=== PATIENT | male | born 1975 | race African-American/Black ===

== ENCOUNTER 2023-11-02 13:55 | Emergency (ER) | payer OTHER, SELFPAY ==
[2023-11-02 14:01] VITALS: BP 182/109; PULSE 115; RESP 24; TEMP 36.2; O2SAT 97; BMI 33.5
--- NOTE | 2023-11-02 14:11 | CRLHL7_ITS ---
For Patients: As a result of the Century Cures Act, medical imaging exams and procedure reports are released immediately into your electronic medical record. You may view this report before your referring provider. If you have questions, please contact your health care provider. INDICATION: Left flank pain. Left shoulder pain. TECHNIQUE: Multiplanar CT examination of the chest, abdomen and pelvis was performed without the use of intravenous contrast. COMPARISON: None. FINDINGS: Limited evaluation without the use of intravenous contrast. CHEST: Lower neck: Visualized thyroid appears unremarkable. Cardiovascular: Normal heart size. No significant atherosclerotic calcifications of the thoracic aorta. Normal caliber of the thoracic aorta and pulmonary artery. No CT evidence of acute aortic injury. No significant coronary arterial calcifications. Mediastinum and lymph nodes: No pathologic lymphadenopathy by size criteria. Lungs: There is Latoya lymphatic nodularity, most pronounced involving the bilateral lower lobes, for example abutting the right major fissure as well as several irregularly nodular interlobular septal thickening (2:99). No focal consolidation. No suspicious pulmonary masses. Pleura: No pleural effusions or pneumothorax. Chest wall: No axillary lymphadenopathy. Unremarkable. Bones: No acute osseous abnormalities. No acute displaced rib fractures. Mild degeneration of the glenohumeral joints bilaterally. ABDOMEN AND PELVIS: Liver: Unremarkable. Gallbladder: Unremarkable. Biliary: No biliary ductal dilatation. Pancreas: Within normal limits. Spleen: Unremarkable. Adrenals: Unremarkable. Kidneys/ureters/bladder: Kidneys are normal in size. No obstructive urinary calculus or hydronephrosis. There are numerous nonobstructive calculi within the renal collecting system bilaterally. No obstructive uropathy. The bladder is within normal limits. Limited evaluation for masses within the kidneys, ureters or bladder without the use of intravenous contrast. 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 No bowel wall thickening or bowel obstruction. Normal appendix. No significant colonic diverticulosis. Mild colonic stool burden. Small hiatal hernia. Pelvic structures: Unremarkable prostate. Vascular: Minimal atherosclerotic calcifications of the abdominal aorta. No aneurysm. Peritoneum: No free fluid or pneumoperitoneum. No drainable fluid collections. Lymph nodes: No pathologic lymphadenopathy by size criteria. Abdominal wall/soft tissues: Unremarkable. Bones: No acute osseous abnormalities. Degenerative changes of the hip joints bilaterally. IMPRESSION: 1. No acute intrathoracic pathology. Mild degeneration of the glenohumeral joints bilaterally. 2. No acute abdominopelvic pathology. No hydronephrosis or obstructing urinary calculus. 3. Irregularly nodular interlobular septal thickening and perilymphatic nodularity predominantly involving the bilateral lower lobes. These findings can be seen the setting of underlying pulmonary sarcoidosis. No significant pulmonary fibrosis or intrathoracic lymphadenopathy. 4. Status post gastric bypass surgery. No bowel obstruction. Please note that all CT scans at this facility use dose modulation, iterative reconstruction, and/or weight-based dosing when appropriate to reduce radiation dose to as low as reasonably achievable. Dictated by Paco Medrano MD @ 11/02/2023 3:57:21 PM (Electronically Signed)
[2023-11-02 14:32] LABS: Lactate Sepsis w/Reflex* 4.7 mmol/L (0.5-1.9)
--- OUTSIDE RECORDS SUMMARY | 2023-11-02 14:37 | XMS_ITS | Encounter Summary ---
Author Organization [place] Address [address] [facility] [place] [address] Care Team Providers Care Psychiatric Arnp Name Role Phone Олег Kaiser MD Unavailable [phone] Loretta Elizalde PA-C Unavailable [phone] Loretta Elizalde PA-C Primary Care Provider [phone] Dong Craft MD Unavailable [phone] Grazyna Damian CNP Unavailable [phone] Reason for Visit * Reason Onset Date Comments Refill Request 10/30/2023 FLUoxetine (PROZ AC) 40 MG capsule and albuterol (PROAIR HFA/PROVENTIL HFA/VENTOLIN HFA) 108 (90 Base) MCG/ACT inhaler Encounter Details Date Type Department Care Team (Late st Contact Info) Description 10/30/2023 Refill [facility] [address] [place] [address] Loretta Elizalde PA-C [address] [place] [address] Refill Request (FLUoxetine (PROZAC) 40 MG capsule and albuterol (PROAIR HFA/PROVENTIL HFA/VENTOLIN HFA) 108 (90 Base) MCG/ACT inhaler) Social History Tobacco Use Types Packs/Day Years Used Date Smoking Tobacco: Never Smokeless Tobacco: Never Alcohol Use Standard Drinks/Week Comments Yes 3 (1 standard drink = 0.6 oz pur e alcohol) rare PHQ-2 Answer Date Recorded PHQ-2 Score 2 09/11/2022 Adolescent Education Answer Date Record ed Getting School Help Needed Not on file 02/16 Sex and Gender Information Value Date Recorded Sex Assigned at Not on file Gender Identity Not on file Sexual Orientation Not on file documented as of this encounter Miscellaneous Notes * Telephone Encounter - Faith Cano - 10/31/2023 12:35 PM CDT Scheduled. Faith Cano Lead Hoop Maker [facility] * Telephone Encounter - Loretta Elizalde PA-C - 10/31/2023 11:39 AM CDT I would like to have a visit with him to discuss and I have virtual openings next week. Please helpschedule visit. He should still keep his physical as scheduled in November. Thanks! Loretta Elizalde PA-C * Telephone Encounter - Miguelina Hernandez RN - 10/31/2023 8:59 AM CDT Patient calling back. Has been out for about 6 months. States needs to get back on it before his visit in November. Having depression and anxiety but more depression. Patient confirms he is safe and denies thoughts of harming himself or others. Discussed may need a taper. Discussed may be advised E-Visit. Please advise. Miguelina Hernandez RN * Telephone Encounter - Leonela James RN - 10/31/2023 8:48 AM CDT Attempted to call patient x2, no answer and VM not set up. Leonela James RN on 10/31/2023 at 8:48 AM * Telephone Encounter - Loretta Elizalde PA-C - 10/31/2023 8:32 AM CDT Fluoxetine last prescribed 04/19/23 for 30 day supply so he would have run out of medication a while ago. Has he been taking the fluoxetine? He is overdue for visit but does have visit scheduled with me in November. Loretta Elizalde PA-C documented in this encounter Plan of Treatment Upcoming Encounters Date Type Department Care Team (Late st Contact Info) Description 11/06/2023 4:00 PM CDT Virtual Visit [facility] [address] [place] [phone] Loretta Elizalde PA-C [address] [place], [place] [phone] 12/11/2023 7:30 AM CDT Office Visit [facility] [address] [place] [phone] Loretta Elizalde PA-C [address] [place], [place] 8[address] documented as of this encounter Goals Goal Patient Goal Type Associated Problems Recent Progress Patient-Stated? Author Other General No Dina Ron LPN Note: Goal Statement: I will use my clinic and care team resources as directed. Date Goal set: 06/26/2023 Barriers: none Strengths: coping and health awareness Date to Achieve By: ongoing Patient expressed understanding of goal: Yes Action steps to achieve this goal: I will contact triage with new, worsening or uncontrolled symptoms. I will contact scheduling to arrange or make changes in my appointments. documented as of this encounter Visit Diagnoses Diagnosis Recurrent major depressive disorder, in partial remission (H24) Moderate persistent asthma without complication Unspecified asthma documented in this encounter Additional Health Concerns Assessment Noted Time PHQ-9 Depression Total Score: 2 09/12/19 7:51 AM CDT documented as of this encounter Care Teams Psychiatric Arnp Relationship Specialty Start Date End Date Loretta Elizalde PA-C [address] [place] [address] PCP - General Family Medicine 09/25/22 Олег Kaiser MD [address] [place] [address] [id number] Urology 04/05/21 Loretta Elizalde PA-C [address] [place] [address] Assigned PCP 09/22/22 Dong Craft MD [address] [place] [address] Hematology 10/09/22 Grazyna Damian, NORBERT [address] [place] [address] Assigned Cancer Care Provider 05/25/23 documented as of this encounter
--- OUTSIDE RECORDS SUMMARY | 2023-11-02 14:37 | XMS_ITS | Encounter Summary ---
Author Organization [place] Address [address] [place] [address] Care Team Providers Care Flap Lining Binder Name Role Phone Олег Kaiser MD Unavailable [phone] Loretta Elizalde PA-C Unavailable [phone] Loretta Elizalde PA-C Primary Care Provider [phone] Dong Craft MD Unavailable [phone] Dong Craft MD Unavailable [phone] Grazyna Damian CNP Unavailable [phone] Encounter Details Date Type Department Care Team (Late Contact Info) Description 04/19/2023 MyC Medical Advice [facility] [address] [place] [address] Faith Cano Social History Tobacco Use Types Packs/Day Years [...] on file documented as of this encounter Plan of Treatment Upcoming Encounters Date Type Department Care Team ([facility] Contact Info) Description 11/06/2023 4:00 PM CDT [facility] [address] [place] [phone] Loretta Elizalde PA-C [address] [place] [address] 12/11/2023 7:30 AM CDT Office Visit [facility] [address] [place] [phone] Loretta Elizalde PA-C [address] [place] [address] documented as of this encounter Visit Diagnoses Not on filedocumented in this encounter Additional Health Concerns Assessment Noted Time PHQ-9 Depression Total Score: 2 09/12/19 7:51 AM CDT documented as of this encounter Care Teams Flap Lining Binder Relationship Specialty Start Date End Date Loretta Elizalde PA-C [address] [place] [address] PCP - General Family Medicine 09/25/22 Олег Kaiser MD [address] [place] [address] 396645 Urology 04/05/21 Loretta Elizadle PA-C [address] [place] [address] Assigned PCP 09/22/22 Dong Craft MD [address] [place] [address] 159135 Hematology 10/09/22 Dong Craft MD [address] [place] [address] [phone] Assigned Cancer Care Provider 11/24/22 05/24/23 Grazyna Damian CNP [address] [address] Assigned Cancer Care Provider 05/25/23 documented as of this encounter
--- OUTSIDE RECORDS SUMMARY | 2023-11-02 14:37 | XMS_ITS | Encounter Summary ---
Author Organization [place] Address [address] [facility] [place] [address] Care Team Providers Care Train Operator Name Role Phone Олег Kaiser MD Unavailable [phone] Loretta Elizalde PA-C Unavailable [phone] Loretta Elizalde PA-C Primary Care Provider [phone] Dong Craft MD Unavailable [phone] Dong Craft MD Unavailable [phone] Grazyna Damian CNP Unavailable [phone] Encounter Details Date Type Department Care Team (Late st Contact Info) Description 05/14/2023 MyC Medical Advice [facility] [address] [place] [address] [facility] Social History Tobacco Use Types Packs/Day Years [...] Encounters Date Type Department Care Team (Late Contact Info) Description 11/06/2023 4:00 PM CDT Virtual Visit [address] [place] [phone] Loretta Elizalde PA-C [address] [place], [place] [phone] 12/11/2023 7:30 AM CDT [facility] [address] [place] [phone] Loretta Elizalde PA-C [address] [place], [place] [phone] documented as of this encounter Visit Diagnoses Not on filedocumented in this encounter Additional Health Concerns Assessment Noted Time PHQ-9 Depression Total Score: 2 09/12/19 7:51 AM CDT documented as of this encounter Care Teams Train Operator Relationship Specialty Start Date End Date Loretta Elizaled PA-C [address] [place] [address] PCP - General Family Medicine 09/25/22 Олег Kaiser MD [address] [place] [address] [phone] Urology 04/05/21 Loretta Elizalde PA-C [address] [place] [address] Assigned PCP 09/22/22 Dong Craft MD [address] [place] [address] [phone] Hematology 10/09/22 Dong Craft MD [address] [place] [address] [phone] Assigned Cancer Care Provider 11/24/22 05/24/23 Grazyna Damian CNP [address] [address] Assigned Cancer Care Provider 05/25/23 documented as of this encounter
--- OUTSIDE RECORDS SUMMARY | 2023-11-02 14:37 | XMS_ITS | Encounter Summary ---
Author Organization [place] Address [facility] [place] [address] Care Team Providers Care Atv Mechanic Name Role Phone Олег Kaiser MD Unavailable [phone] Loretta Elizalde PA-C Unavailable [phone] Loretta Elizalde PA-C Primary Care Provider [phone] Dong Craft MD Unavailable [phone] Grazyna Damian CNP Unavailable [phone] Encounter Details Date Type Department Care Team (Late st Contact Info) Description 08/19/2023 MyC Medical Advice [facility] [address] [address] Eleanor Schwartz Social History Tobacco Use Types Packs/Day Years [...] Description 11/06/2023 4:00 PM CDT Virtual Visit [address] [address] Loretta Elizalde PA-C [address] [place], [place] [phone] 12/11/2023 7:30 AM CDT Office Visit [facility] [address] [place] [phone] Loretta Elizalde PA-C [address] [place] [address] documented as of this encounter Goals Goal [...] Time PHQ-9 Depression Total Score: 2 09/12/19 23 7:51 AM CDT documented as of this encounter Care Teams Atv Mechanic Relationship Specialty Start Date End Date Loretta Elizalde PA-C [address] [place] [address] PCP - General Family Medicine 09/25/22 Олег Kaiser MD [address] [place] [address] Urology 04/05/21 Loretta Elizalde PA-C [address] [place] [address] Assigned PCP 09/22/22 Dong Craft MD [address] [place] [address] 281125 Hematology 10/09/22 Grazyna Damian CNP 420 [facility] [address] [place] [address] Assigned Cancer Care Provider 05/25/23 documented as of this encounter
--- OUTSIDE RECORDS SUMMARY | 2023-11-02 14:37 | XMS_ITS | Encounter Summary ---
Author Organization [place] Address [address] [facility] [place] [address] Care Team Providers Care Supervisory Lifeguard Name Role Phone Олег Kaiser MD Unavailable [phone] Loretta Elizalde PA-C Unavailable [phone] Loretta Elizalde PA-C Primary Care Provider [phone] Dong Craft MD Unavailable [phone] Dong Craft MD Unavailable [phone] Grazyna Damian CNP Unavailable [phone] Encounter Details Date Type Department Care Team (Late st Contact Info) Description 12/06/2022 [facility] [address] [place] [address] [facility] Social History Tobacco Use Types Packs/Day Years Used Date Smoking Tobacco: Never Smokeless Tobacco: Never Alcohol Use Standard Drinks/Week Comments Yes 3 (1 standard drink = 0.6 oz pur e alcohol) rare PHQ-2 Answer Date Recorded PHQ-2 Score 2 09/11/2022 Sex and Gender Information Value Date Recorded Sex Assigned at Not on file Gender Identity Not on file Sexual Orientation Not on file COVID-19 Exposure Response Date Recorded In the last 10 days, have yo u been in contact with someone who was confirmed or suspected to have Coronavirus/COVID-19? No / Unsure 11/12/2022 4:25 PM CDT documented as of this encounter Plan of Treatment Upcoming Encounters Date Type Department Care Team (Late st Contact Info) Description 11/06/2023 4:00 PM CDT Virtual Visit [facility] [address] [place] [phone] Loretta Elizalde PA-C [address] [place] [address] 12/11/2023 7:30 AM CDT Office Visit [facility] [address] [place] [phone] Loretta Elizalde PA-C [address] [place], [place] 9[address]65[address] documented as of this encounter Visit Diagnoses Not on filedocumented in this encounter Additional Health Concerns Assessment Noted Time PHQ-9 Depression Total Score: 2 09/12/19 7:51 AM CDT documented as of this encounter Care Teams Supervisory Lifeguard Relationship Specialty Start Date End Date Loretta Elizalde PA-C [address] [place] [address] PCP - General Family Medicine 09/25/22 Олег Kaiser MD [address] [place] [address] [phone] Urology 04/05/21 Loretta Elizalde PA-C [address] [place] [address] Assigned PCP 09/22/22 Dong Craft MD [address] [place] [address] Hematology 10/09/22 Dong Craft MD [address] [place] [address] Assigned Cancer Care Provider 11/24/22 05/24/23 Grazyna Damian CNP [address] [place] [address] 525794 Assigned Cancer Care Provider 05/25/23 documented as of this encounter
--- OUTSIDE RECORDS SUMMARY | 2023-11-02 14:37 | XMS_ITS | Encounter Summary ---
Author Organization [place] Address [address] [facility] [place] [address] Care Team Providers Care Power Tool Repair Technician Name Role Phone Олег Kaiser MD Unavailable [phone] Loretta Elizalde PA-C Unavailable [phone] Loretta Elizalde PA-C Primary Care Provider [phone] Dong Craft MD Unavailable [phone] Dong Craft MD Unavailable [phone] Grazyna Damian CNP Unavailable [phone] Encounter Details Date Type Department Care Team (Late st Contact Info) Description 02/01/2023 [facility] [address] [place] [address] Faith Cano Social History Tobacco [...] Description 11/06/2023 4:00 PM CDT [facility] [address] [place] [address] Loretta Elizalde PA-C [address] [place] [address] 12/11/2023 7:30 AM CDT Office Visit [facility] [address] [place] [address] Loretta Elizalde PA-C [address] [place] [address] documented as of this encounter Visit Diagnoses Not on filedocumented in this encounter Additional Health Concerns Assessment Noted Time PHQ-9 Depression Total Score: 2 09/12/19 7:51 AM CDT documented as of this encounter Care Teams Power Tool Repair Technician Relationship Specialty Start Date End Date Loretta Elizalde PA-C [address] [place] [address] PCP - General Family Medicine 09/25/22 JobОлег MD [address] [place] [address] [phone] Urology 04/05/21 Loretta Elizalde PA-C [address] [place] [address] Assigned PCP 09/22/22 Dong Craft MD [address] [place] [address] Hematology 10/09/22 Dong Craft MD [address] [place] [address] Assigned Cancer Care Provider 11/24/22 05/24/23 Grazyna Damian, RABBIT DRESSER [address] [address] Assigned Cancer Care Provider 05/25/23 documented as of this encounter
--- OUTSIDE RECORDS SUMMARY | 2023-11-02 14:37 | XMS_ITS | Encounter Summary ---
Author Organization [place] Address [address] [facility] [place] [address] Care Team Providers Care Cigarette Making Machine Catcher Name Role Phone Олег Kaiser MD Unavailable [phone] Loretta Elizalde PA-C Unavailable [phone] Loretta Elizalde PA-C Primary Care Provider [phone] Dong Craft MD Unavailable [phone] Dong Craft MD Unavailable [phone] Grazyna Damian CNP Unavailable [phone] Encounter Details Date Type Department Care Team (Late st Contact Info) Description 12/10/2022 [facility] Medical Advice [facility] [address] [place] [address] Vibha Ernst Social History Tobacco Use Types Packs/Day Years [...] suspected to have Coronavirus/COVID-19? No / Unsure 12/12/2022 2:30 PM CDT documented as of this encounter Plan of Treatment Upcoming Encounters Date Type Department Care Team (Late st Contact Info) Description 11/06/2023 4:00 PM CDT [facility] [address] [place] [phone] Loretta Elizalde PA-C [address] [place] [address] 12/11/2023 7:30 AM CDT [facility] [address] [place] [phone] Loretta Elizalde PA-C [address] [place], [place] 8[address]68 documented as of this encounter Visit Diagnoses Not on filedocumented in this encounter Additional Health Concerns Assessment Noted Time PHQ-9 Depression Total Score: 2 09/12/19 7:51 AM CDT documented as of this encounter Care Teams Cigarette Making Machine Catcher Relationship Specialty Start Date End Date Loretta Elizalde PA-C [address] [place] [address] PCP - General Family Medicine 09/25/22 Олег Kaiser MD [address] [place] [address] [phone] Urology 04/05/21 Loretta Elizalde PA-C [address] [place] [address] Assigned PCP 09/22/22 Dong Craft MD [address] [place] [address] Hematology 10/09/22 Dong Craft MD [address] [place] [address] Assigned Cancer Care Provider 11/24/22 05/24/23 Grazyna Damian CNP [address] [place] [address] Assigned Cancer Care Provider 05/25/23 documented as of this encounter
--- OUTSIDE RECORDS SUMMARY | 2023-11-02 14:37 | XMS_ITS | Referral Summary ---
Author Organization [facility] Address [address] [facility] [place] [address] Care Team Providers Care Broiler Supervisor Name Role Phone Олег Kaiser MD Unavailable [phone] Loretta Elizalde PA-C Unavailable [phone] Loretta Elizalde PA-C Primary Care Provider [phone] Dong Craft MD Unavailable [phone] Grazyna Damian CNP Unavailable [phone] Encounters Date Type Department Care Team Description 10/30/[address] [address] Loretta Elizalde PA-C Refill Request (FLUoxetine (PROZAC) 40 MG capsule and albuterol (PROAIR HFA/PROVENTIL HFA/VENTOLIN HFA) 108 (90 Base) MCG/ACT inhaler) 08/19/2023 MyC Medical Advice [facility] [address] [address] Eleanor Schwartz from Last 3 Months Allergies Active Allergy Reactions Criticality Noted Date Comments Nsaids 06/09/2018 Gastric Bypass Medications Medication Sig Dispensed Refills Start Date End Date Status amLODIPine (NORVASC) 5 MG tabletIndications: Hypertension goal BP (blood pressure) < 140/90 Take 1 tablet (5 mg) by mouth daily 30 tablet 1 09/25/2022 Active fluticasone-vilant pepper (BREO ELLIPTA) 200-25 MCG/ACT inhaler Inhale 1 puff into the lungs daily as needed Active nortriptyline (PAMELOR) 10 MG capsule Take 10 mg by mouth At Bedtime Active pantoprazole (PROTONIX) 20 MG EC tablet Take 20 mg by mouth daily Active olmesartan (BENICAR) 20 MG tabletIndications: Hypertension goal BP (blood pressure) < 140/90 TAKE 1 TABLET BY MOUTH EVERY DAY 30 tablet 02/01/2023 Active metFORMIN (GLUCOPHAGE XR) 500 MG 24 hr tabletIndications: Type 2 diabetes mellitus with diabetic nephropathy, 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 NEEDS VISIT FOR FURTHER REFILLS 120 tablet 04/19/2023 Active rosuvastatin (CRESTOR) 20 MG tabletIndications: Hyperlipidemia LDL goal <70 TAKE 1 TABLET BY MOUTH EVERY DAY 30 tablet 04/19/2023 Active FLUoxetine (PROZAC) 40 MG capsuleIndications :Recurrent major depressive disorder, in partial remission (H24) TAKE 1 CAPSULE BY MOUTH EVERY DAY 30 capsule 04/19/2023 Active albuterol (PROAIR HFA/PROVENTIL HFA/VENTOLIN HFA) 108 (90 Base) MCG/ACT inhalerIndications :Moderate persistent asthma without complication Inhale 1-2 puffs into the lungs every 4 hours as needed for shortness of breath or wheezing 18 g 10/31/2023 Active albuterol (PROAIR HFA/PROVENTIL HFA/VENTOLIN HFA) 108 (90 Base) MCG/ACT inhalerIndications :Moderate persistent asthma without complication Inhale 1-2 puffs into the lungs every 4 hours as needed for shortness of breath or wheezing 18 g 11 09/11/2022 4 Discontinue d(Reorder (No AVS)) Active Problems Patient Care Coordination No te Formatting of this note migh t be different from the original. EMERGENCY CARE PLAN ACUTE CARE PLAN FOR THE FOLLOWING CONDITIONS: Chronic abdominal pain BRIEF HISTORY OF CONDITIONS: He has history of patricia-en-y gastric bypass surgery in 2006. Has been seen in emergency departments frequently in [phone] for epigastric abdominal pain. Has chronic pain of 7/10 noted on December 2018 [facility] admission. He has had significant workup for this pain throughout this time. Patient has had multiple gallbladder US and CT abdomen/pelvis during this time that have been unremarkable. He had EGD in September 2018 through [facility] that was normal. He saw general surgery PLUMBER GASFITTER through [facility] on 01/06/19 that thought some of pain may be incisional pain as he had pain over the area when using abdominal muscles. Hospital discharge note from December 2018 also mentions constipation as possibly contributing to pain. EXPECTED HOME RESCUE PLAN: Patient should be taking his home medications including PPI, stool regimen and OTC pain medications. He may have narcotics at home as he has intermittently been prescribed narcotics. AUTHORIZED TREATMENTS IN THE EMERGENCY DEPARTMENT (WITH SPECIFIC MEDICATIONS AND DOSES): Labs as needed Avoid imaging especially CT abdomen/pelvis unless acute change in labs or concerning clinical exam as he has had multiple CT abdomen/pelvis over last 2 years that have been negative Antiemetics PRN, GI cocktail PRN, EPPA Chronic Pain Policy applies. No parenteral opiates or prescriptions for opiate pain medications. INDICATIONS FOR ADMISSION OR CONSULTATION: Acute change in labs from baseline or new imaging findings warranting admission Uncontrolled vomiting FOLLOW UP PLAN AFTER AN ED VISIT: Follow up with primary care provider CONTACT INFORMATION FOR PMD OR CELL PHONE REPAIR TECHNICIAN: Johnie Farmer MD [phone] PAIN CONTRACT CLINIC/PRESCRIBER: N/A RESTRICTED STATUS IF RESTRICTED TO A HOSPITAL OR PROVIDER: NA Problem Noted Date Diagnosed Date Upper GI bleed 10/01/2022 History of Patricia-en-Y gastric bypass 10/01/2022 B12 deficiency 09/13/2022 Iron deficiency anemia, unsp ecified iron deficiency anemia type 09/13/2022 Family history of early CAD 09/11/2022 Overview: His dad, paternal uncles, and paternal grandfather all had heart attacks or strokes in their 40s-50s. Moderate persistent asthma 11/08/2014 Hypertension goal BP (blood pressure) < 140/90 0 11/08/2014 Type 2 diabetes mellitus wit h diabetic nephropathy, goal <7% 11/08/2014 Hyperlipidemia LDL goal <70 11/08/2014 Recurrent major depressive d isorder, in partial remission (H24) 09/26/2013 09/11/2022 Overview: H/o overdose attempt (2006), hospitalized at [facility]'s 2010 Vitamin D deficiency 05/16/2010 Acute gout of right knee, unspecified cause 05/29 S/P gastric bypass 06/25/2008 09/11/2022 Overview: ~2001, [facility], Dr Zhou? Resolved Problems Problem Noted Date Diagnosed Date Resolved Date Ureteral stone 04/08/2021 09/11/2022 Pneumonia due to infectious organism, unspecified laterality, unspecified part of lung 04/18/2020 09/11/2022 Sepsis, due to unspecified o rganism, unspecified whether acute organ dysfunction present 04/18/2020 09/11/2022 Suspected COVID-19 virus infection 04/18/2020 09/11/2022 Asthma in adult, moderate pe rsistent, with acute exacerbation 06/23/2019 09/11/2022 Syncope 01/29/2018 09/11/2022 Ileus 08/29/2017 09/11/2022 Abdominal pain 08/29/2017 09/11/2022 Weakness 08/28/2016 09/11/2022 Overweight - BMI >35 03/17/2015 023 H/O bariatric surgery 11/08/20142022 Depression with anxiety 11/08/201408/25 Overview: [facility] (has already done a phone consultation) - for counseling Living will, counseling/discussion 10/22/2013 09/11/2022 Overview: Advance Care Planning: ACP Review and Resources Provided: Reviewed chart for advance care plan. Alex Goodwin III has no plan or code status on file. Discussed available resources and provided with information. Confirmed code status reflects current choices pending further ACP discussions. Confirmed/documented designated decision maker(s). See permanent comments section of demographics in clinical tab. Added by Emily Hayes on 10/22/2013 Alcohol dependence in remission 09/26/2013 3 09/11/2022 Overview: Reports being sober since 12/2009, attending [facility] 09/22/2013 09/11/2022 Overview: State Tier Level: NA Status: NA Community Fundraiser: See Letters for [facility] Care Plan Pernicious anemia 09/22/2013 09/11/2022 Insomnia 09/22/2013 09/11/2022 Anal fissure and fistula 04/21/2013 Perirectal abscess 04/20/2013 4 Abscess of anal and rectal regions 04/02/2013 09/22/2013 Rectal pain 04/02/2013 09/22/2013 Rectal mass 04/02/2013 09/22/2013 Rectal abscess 04/02/2013 09/22/2013 Asthma 11/14/2011 11/08/2014 Hyperlipidemia 02/10/2010 11/08/2014 Alcohol dependence 01/03/2010 3 Overview: Went through treatment, sober since 2011. Still going to Essential hypertension 07/19/200911/08 Type II diabetes mellitus 06/25/2008 Bariatric surgery status 06/25/2008 Immunizations Name Administration Dates Next Due COVID-19 12+ () (Pfizer) 03/28/2023 COVID-19 MONOVALENT 12+ (Pfizer) 11/04/2020,09/25 Flu, Unspecified 03/15/2019 L2v1-05 Novel Flu P-free 07/08/2009 HepB 04/11/2012,05/12/2010,02/09/2010 Hepatitis B, Adult 04/11/2012,05/12/2010, 010 Influenza (H1N1) 07/08/2009 Influenza (IIV3) PF 03/11/2014, 2,02/23/2011,2009 Influenza Vaccine 18-64 (Flublok) 03/28/2021 Influenza Vaccine >6 months,quad, PF 06/2022,04/10/2022,02/12/2018,2016,02/09/2016,03/11/2014 Influenza, seasonal, injectable, PF 02/09/2010 Pneumococcal 20 valent Conju gate (Prevnar 20) 03/28/2023,09/11/2022 Pneumococcal 23 valent 07/18/2009 TDAP (Adacel,Boostrix) 07/16/2021,07/18/2009 Social History Tobacco Use Types Packs/Day Years Used Date Smoking Tobacco: Never Smokeless Tobacco: Never Tobacco Cessation:Counseling Given: Not Answered Alcohol Use Standard Drinks/Week Comments Yes 3 (1 standard drink = 0.6 oz pur e alcohol) rare PHQ-2 Answer Date Recorded PHQ-2 Score 2 09/11/2022 Adolescent Education Answer Date Record ed Getting School Help Needed Not on file 02/16 Sex and Gender Information Value Date Recorded Sex Assigned at Not on file Gender Identity Not on file Sexual Orientation Not on file Last Filed Vital Signs Vital Sign Reading Time Taken Comments Blood Pressure 153/95 05/14/2023 12:14 PM INK GRINDER Pulse 89 05/14/2023 12:14 PM INK GRINDER Temperature 36.4 ??C (97.6 ??F) 05/14/2023 12:[address] Respiratory Rate 18 05/14/2023 12:14 PM INK GRINDER Oxygen Saturation 98% 05/14/2023 12:14 PM INK GRINDER Inhaled Oxygen Concentration - - Weight 99.3 kg (219 lb) 05/14/2023 12:14 PM INK GRINDER Height 175.3 cm (5' 9) 10/16/2022 1:50 PM CDT Body Mass Index 32.34 10/16/2022 1:50 PM CDT Plan of Treatment Upcoming Encounters Date Type Department Care Team (Late st Contact Info) Description 11/06/2023 4:00 PM CDT Virtual Visit [facility] [address] [place] [phone] Loretta Elizalde PA-C [address] [place], [place] [phone] 12/11/2023 7:30 AM CDT [facility] [address] [place] [phone] Loretta Elizalde PA-C [address] [place], [place] [phone] Goals Goal Patient Goal Type Associated Problems [...] arrange or make changes in my appointments. Medical Devices Implanted Type Area Nurse Infection Control Device Identifier Shelf Expiration Date Model / Serial / Lot Stent Ureteral Polaris Ultra [id number] - [id number] Implanted:Qty: 1 on 04/08/2021 by Олег Kaiser MD at [facility] Stent Right: Abdomen [employer] 01/06/2024 [id number] / / [id number] Procedures Procedure Name Priority Date/Time Associated Diagnosis Comments BASIC METABOLIC PANEL Routine 10/04/2022 6:02 AM CDT COLONOSCOPY Routine 10/03/2022 12:08 PM CDT ALBUMIN RANDOM URINE QUANTITATIVE Routine 09/25/2022 3:40 PM CDT Type 2 diabetes mellitus with diabetic nephropathy, 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) HIV ANTIGEN ANTIBODY COMBO Routine 09/11/2022 8:48 AM CDT Screening for HIV (human immunodeficiency virus) HEPATITIS C SCREEN REFLEX TO HCV RNA QUANT AND GENOTYPE Routine 09/11/2022 8:48 AM CDT Need for hepatitis C screening test LIPID REFLEX TO DIRECT LDL PANEL Routine 09/11/2022 8:48 AM CDT Type 2 diabetes mellitus with diabetic nephropathy, 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) Hyperlipidemia LDL goal <70 HEMOGLOBIN A1C Routine 09/11/2022 8:48 AM CDT Type 2 diabetes mellitus with diabetic nephropathy, 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) Hyperlipidemia LDL goal <70 OCCULT BLOOD STOOL STAT 06/23/2019 9: 59 AM INK GRINDER ASTHMA ACTION PLAN Routine 10/13/2015 9: 27 AM CDT C FOOT EXAM Routine 09/22/2013 1:08 PM CDT Diabetes mellitus, type 2 (H) from Last 3 Months or Most Recently Relevant to Health Maintenance Results * (ABNORMAL) Basic metabolic panel (10/04/2022 6:02 AM CDT) [facility] Sodium 138 136 - 145 mmol/L 10/04/2022 7:04 AM CDT LABORATORY Potassium 3.5 3.4 - 5.3 mmol/L 10/04/2022 7:04 AM CDT LABORATORY Chloride 106 98 - 107 mmol/L 10/04/2022 7:04 AM CDT LABORATORY Carbon Dioxide (CO2) 24 22 - 29 mmol/L 10/04/2022 7:04 AM CDT LABORATORY Anion Gap 8 7 - 15 mmol/L 10/04/2022 7:04 AM CDT LABORATORY Urea Nitrogen 7.7 6.0 - 20.0 mg/dL 10/04/2022 7:04 AM CDT LABORATORY Creatinine 1.02 0.67 - 1.17 mg/dL 10/04/2022 7:04 AM CDT LABORATORY Calcium 8.4(L) 8.6 - 10.0 mg/dL 10/04/2022 7:04 AM T LABORATORY Glucose 130(H) 70 - 99 mg/dL 10/04/2022 7:04 AM CDT LABORATORY GFR Estimate >90 >60 mL/min/1.7 3m2 10/04/2022 7:04 AM CDT LABORATORY Comment:eGFR calculated usin g 2020 CKD-EPI equation. Blood STRUCTURE OF RIGHT HAND / Unknown Venipuncture / Unknown 10/04/2022 6:02 AM CDT 10/04/2022 6:30 AM CDT Paula Parr MD LAB - BLOOD ORDER RIMMA [facility] Acute Care Lab [address] [facility] Lab (1st floor, no room number) [place] [address], [facility] [phone] * COLONOSCOPY (10/03/2022 12:08 PM CDT) [facility] COLONOSCOPY [facility] Patient Name: Alex ??Salter ?Procedure Date: 10/03/2022 12:08 PM ? Date of : 1975 ?Admit Type: Inpatient Age: 47 ? Gender: Male Attending MD: JD RHOADES MD, ??Total Sedation Time: 24 minutes Instrument Name: 226 - Adult Colonoscope Procedure: ?Colonoscopy Indications: ?Pain, GI bleed Providers: ?JD RHOADES MD (Doctor) Referring MD: ? Medicines: ?Midazolam 3 mg IV, Fentanyl 100 micrograms IV Complications: ?No immediate complications. Procedure: ?Pre-Anesthesia Assessment: ?- Prior to the procedure, a History and Physical ?was performed, and patient medications and ?allergies were reviewed. The patient is competent. ?The risks and benefits of the procedure and the ?sedation options and risks were discussed with the ?patient. All questions were answered and informed ?consent was obtained. Patient identification and ?proposed procedure were verified by the physician ?in the endoscopy suite. Mental Status Examination: ?alert and oriented. Airway Examination: normal ?oropharyngeal airway and neck mobility. Respiratory ?Examination: clear to auscultation. CV Examination: ?normal. Prophylactic Antibiotics: The patient does ?not require prophylactic antibiotics. Prior ?Anticoagulants: The patient has taken no ?anticoagulant or antiplatelet agents. ASA Grade ?Assessment: II - A patient with mild systemic ?disease. After reviewing the risks and benefits, ?the patient was deemed in satisfactory condition to ?undergo the procedure. The anesthesia plan was to ?use moderate sedation / analgesia (conscious ?sedation). Immediately prior to administration of ?medications, the patient was re-assessed for ?adequacy to receive sedatives. The heart rate, ?respiratory rate, oxygen saturations, blood ?pressure, adequacy of pulmonary ventilation, and ?response to care were monitored throughout the ?procedure. The physical status of the patient was ?re-assessed after the procedure. ?After obtaining informed consent, the colonoscope ?was passed under direct vision. Throughout the ?procedure, the patient's blood pressure, pulse, and ?oxygen saturations were monitored continuously. The ?[place] Adult Colonoscope, Model # CF-CV926S, ?[place] # 226, SN # [id number] was introduced through ?the anus and advanced to the cecum, identified by ?appendiceal orifice and ileocecal valve. The ?colonoscopy was performed without difficulty. The ?patient tolerated the procedure fairly well. The ?quality of the bowel preparation was good. ? Findings: ? The entire examined colon appeared normal on direct and retroflexion ? views. ? Impression: ? - The entire examined colon is normal on direct and ?retroflexion views. ?- No specimens collected. Recommendation: ? Repeat in ten years. Wonder about HIDA scan for the ?RUQ pain. Might need a small bowel pill camera ?study. ? ____ JD RHOADES MD 10/03/2022 1:46:50 PM I was physically present for the entire viewing portion of the exam. JD RHOADES MD Number of Addenda: 0 Note Initiated On: 10/03/2022 12:08 PM MRN: ?[id number] Procedure Date: ? 10/03/2022 12:08:54 PM Scope Withdrawal Time: 0 hours 6 minutes 14 seconds Total Procedure Duration: 0 hours 21 minutes 40 seconds Estimated Blood Loss: ? Scope In: 1:16:52 PM Scope Out: 1:38:32 PM RADIOLOGY RESULTS 10/03/2022 12:0 8 PM CDT Jd Rhoades MD PROCEDURES RADIOLOGY RESULTS * (ABNORMAL) Albumin Random Urine Quantitative with Creat Ratio (09/25/2022 3:40 PM CDT) Creatinine Urine mg/dL 212.0 mg/dL 09/25/2022 10:01 PM CDT [facility] Comment:The reference ranges have not been established in urine creatinine. The results should be integrated into the clinical context for interpretation. Albumin Urine mg/L 106.0 mg/L 2022 10:01 PM CDT [facility] Comment:The reference ranges have not been established in urine albumin. The results should be integrated into the clinical context for interpretation. Albumin Urine mg/g Cr 50.00(H) 0.00 - 17.00 mg/g Cr 09/25/2022 10:01 PM CDT [facility] Comment: Microalbuminuria is defined as an albumin:creatinine ratio of 17 to 299 for males and 25 to 299 for females. A ratio of albumin:creatinine of 300 or higher is indicative of overt proteinuria. Due to biologic variability, positive results should be confirmed by a second, first-morning random or 24-hour timed urine specimen. If there is discrepancy, a third specimen is recommended. When 2 out of 3 results are in the microalbuminuria range, this is evidence for incipient nephropathy and warrants increased efforts at glucose control, blood pressure control, and institution of therapy with an fxnqokcxyux-nzqqylyvfj-acbckc (ABNER) inhibitor (if the patient can tolerate it). ?? Urine URINE SPECIMEN / Unknown Non-blood Collection / Unknown 09/25/2022 3:40 PM CDT 09/25/2022 3:41 PM CDT Loretta Elizalde PA-C LAB - URINE ORDERAB LES [facility] [place] [facility] [address] [facility], [address] [address], [facility] [phone] * HIV Antigen Antibody Combo (09/11/2022 8:48 AM CDT) HIV Antigen Antibody Combo Nonreactive Nonreactive 09/11/2022 5:57 PM CDT SPECIALTY CORE/PROT/EN DO Comment:HIV-1 p24 Ag & HIV-1 /HIV-2 Ab Not Detected Blood BLOOD SPECIMEN / Unknown Venipuncture / Unknown 09/11/2022 8:48 AM CDT 09/11/2022 8:48 AM CDT Loretta Elizalde PA-C LAB - BLOOD ORDERAB LES SPECIALTY CORE/PROT/ENDO [facility] Core/Prot/Endo [address] [facility], Room [address] [phone] * Hepatitis C Screen Reflex to HCV RNA Quant and Genotype (09/11/2022 8:48 AM CDT) Hepatitis C Antibody Nonreactive Nonreactive 09/11/2022 5:57 PM CDT [facility] SPECIALTY CORE/PROT/EN DO Blood BLOOD SPECIMEN / Unknown Venipuncture / Unknown 09/11/2022 8:48 AM CDT 09/11/2022 8:48 AM CDT Narrative [facility] SPECIALTY CORE/PROT/ENDO - 09/11/2022 5:57 PM CDT Assay performance characteristics have not been established for newborns, infants, and children. Loretta Elizalde PA-C LAB - BLOOD ORDERAB LES [facility] SPECIAL[facility] CORE/PROT/ENDO [facility] Core/Prot/Endo [address] [facility], [address] [phone] * (ABNORMAL) Lipid panel reflex to direct LDL Fasting (09/11/2022 8:48 AM CDT) Cholesterol 219(H) <200 mg/dL 09/11/2022 2:52 PM CDT [facility] Triglycerides 159(H) <150 mg/dL 09/11/2022 2:52 PM CDT [facility] Direct Measure HDL 52 >=40 mg/dL 09/11/2022 2:52 PM CDT [facility] LDL Cholesterol Calculated 135(H) <=100 mg/dL 09/11/2022 2:52 PM CDT [facility] Non HDL Cholesterol 167(H) <130 mg/dL 09/11/2022 2:52 PM CDT [facility] Blood BLOOD SPECIMEN / Unknown Venipuncture / Unknown 09/11/2022 8:48 AM CDT 09/11/2022 8:48 AM CDT Narrative [facility] - 09/11/2022 2:52 PM CDT Cholesterol Desirable: ??<200 mg/dL Triglycerides Normal: ??Less than 150 mg/dL Borderline High: ??150-199 mg/dL High: ??200-499 mg/dL Very High: ??Greater than or equal to 500 mg/dL Direct Measure HDL Female: ??Greater than or equal to 50 mg/dL Male: ??Greater than or equal to 40 mg/dL LDL Cholesterol Desirable: ??<100mg/dL Above Desirable: ??100-129 mg/dL Borderline High: ??130-159 mg/dL High: ??160-189 mg/dL Very High: ??>= 190 mg/dL Non HDL Cholesterol Desirable: ??130 mg/dL Above Desirable: ??130-159 mg/dL Borderline High: ??160-189 mg/dL High: ??190-219 mg/dL Very High: ??Greater than or equal to 220 mg/dL Loretta Elizalde PA-C LAB - BLOOD ORDERAB LES [facility] LAB[facility]AT[facility] [place] [facility] [address] [facility], [address] [place] [address], [facility] [phone] * (ABNORMAL) HEMOGLOBIN A1C (09/11/2022 8:48 AM CDT) Hemoglobin A1C 8.9(H) 0.0 - 5.6 % 09/11/2022 9:06 AM CDT [facility] LAB[facility]ATORY Comment: Normal <5.7% Prediabetes 5.7-6.4% ?? Diabetes 6.5% or higher Note: Adopted from ADA consensus guidelines. Blood BLOOD SPECIMEN / Unknown Venipuncture / Unknown 09/11/2022 8:48 AM CDT 09/11/2022 8:48 AM CDT Narrative [facility] LAB[facility]ATORY - 09/11/2022 9:06 AM CDT Verified by repeat analysis DA Loretta Elizalde PA-C LAB - BLOOD ORDERAB LES LABORATORY [facility] [address] [facility] (no room number, 1st floor of clinic) [place] [address], [facility] [phone] * Stool: occult blood (06/23/2019 9:59 AM INK GRINDER) Occult Blood Negative NEG^Negati ve 06/23/2019 10:11 AM INK GRINDER [facility] Comment: Called to RUTH PRITCHETT IN ERA @ 1010 ON 06/23/19, NB Stool specimen (specimen) 06/23/2019 9:59 AM INK GRINDER 06/23/2019 10:05 AM INK GRINDER Destinee Graham DO LAB - STOOLS ORDER RIMMA MISYS [facility] [address] [place] [address], [place] [phone] from Last 3 Months or Most Recently Relevant to Health Maintenance Advance Directives For more information, please contact: [phone] * Full Code (Latest Code Status on File) Date Activated Date Inactivated Comments 10/01/2022 6:48 PM 10/04/2022 7:46 PM All basic and advanced life-sustaining interventions are performed as appropriate Question Answer Comments Code status determined by: Discussion with patie nt/ legal decision maker * Full Code Date Activated Date Inactivated Comments 04/08/2021 3:14 AM 04/09/2021 12:38 AM All basic and advanced life-sustaining interventions are performed as appropriate Question Answer Comments Code status determined by: Discussion with patie nt/ legal decision maker * Full Code Date Activated Date Inactivated Comments 04/18/2020 3:58 PM 04/19/2020 3:10 PM All basic and advanced life-sustaining interventions are performed as appropriate Question Answer Comments Code status determined by: Discussion with patie nt/ legal decision maker * Full Code Date Activated Date Inactivated Comments 06/23/2019 3:28 PM 06/24/2019 11:34 AM Question Answer Comments Code status determined by: Discussion with patie nt/legal decision maker * Full Code Date Activated Date Inactivated Comments 01/08/2019 10:12 AM 06/23/2019 8:52 AM Question Answer Comments Code status determined by: Discussion with patie nt/legal decision maker Care Teams Broiler Supervisor Relationship Specialty Start Date End Date Loretta Elizalde PA-C [address] [place] [address] PCP - General Family Medicine 09/25/22 Олег Kaiser MD [address] [place] [address] Urology 04/05/21 Loretta Elizalde PA-C [address] [place] [address] Assigned PCP 09/22/22 Dong Craft MD [address] [place] [id number] Hematology 10/09/22 Grazyna Damian, NORBERT [address] [place] [address] Assigned Cancer Care Provider 05/25/23
--- OUTSIDE RECORDS SUMMARY | 2023-11-02 14:37 | XMS_ITS | Encounter Summary ---
Author Organization [place] Address [address] [facility] [place] [address] Care Team Providers Care Employee Counselor Name Role Phone MarlenyJohnie Primary Care Provider [phone] Олег Kaiser MD Unavailable [phone] Deven Schulte MD Unavailable [phone] Олег Kaiser MD Unavailable [phone] Loretta Elizalde PA-C Unavailable [phone] Олег Kaiser MD Unavailable [phone] Loretta Elizalde PA-C Primary Care Provider [phone] Deven Schulte MD Unavailable [phone] Dong Craft MD Unavailable [phone] Dong Craft MD Unavailable [phone] Grazyna Damian CNP Unavailable [phone] Reason for Visit * Reason Onset Date Comments Appointment 04/11/2021 stent removal Encounter Details Date Type Department Care Team (Late st Contact Info) Description 04/11/2021 Telephone [facility] [address] [place] [address] Олег Kaiser MD [address] [place] [address] Appointment (stent removal ) Social History Tobacco Use Types Packs/Day Years Used Date Smoking Tobacco: Never Smokeless Tobacco: Never Alcohol Use Standard Drinks/Week Comments Yes 0 (1 standard drink = 0.6 oz pur e alcohol) rare PHQ-2 Answer Date Recorded PHQ-2 Score 0 04/06/2021 Sex and Gender Information Value Date Recorded Sex Assigned at Not on file Gender Identity Not on file Sexual Orientation Not on file COVID-19 Exposure Response Date Recorded In the last month, have you been in contact with someone who was confirmed or suspected to have Coronavirus / COVID-19? No / Unsure 04/07/2021 11:09 PM EXPORT AGENT documented as of this encounter Miscellaneous Notes * Telephone Encounter - Araceli Degroot - 04/11/2021 12:32 PM CST [facility] Call Center Phone Message May a detailed message be left on voicemail: yes Reason for Call: Other: . pt is calling to schedule his stent removal, he had a procedure with 04/08/2021, please call Alex to schedule, thank you Action Taken: Message routed to: Other: uro Travel Screening: Not Applicable RT AGENT documented in this encounter Plan of Treatment Upcoming Encounters Date Type Department Care Team (Late st Contact Info) Description 11/06/2023 4:00 PM CDT Virtual Visit [facility] [address] [place] [phone] Loretta Elizalde PA-C [address] [place] [address] 12/11/2023 7:30 AM CDT [facility] [address] [place] [phone] Loretta Elizalde PA-C [address] [place], [place] [phone] documented as of this encounter Visit Diagnoses Not on filedocumented in this encounter Care Teams Employee Counselor Relationship Specialty Start Date End Date Johnie Farmer PCP - General Family Practice 01/30/18 09/24/22 Loretta Elizalde PA-C [address] [place], [place] [phone] PCP - General Family Medicine 09/25/22 Олег Kaiser MD [address] [place] [address] 093465 Urology 04/05/21 Deven Schulte MD [address] [place] [address] 051195 Assigned Surgical Provider 04/23/21 Олег Kaiser MD [address] [place] [address] 70681 Assigned Surgical Provider 04/16/21 Loretta Elizalde PA-C [address] [place] [address] Assigned PCP 09/22/22 Олег Kaiser MD [address] [place] [address] 08668 Assigned Surgical Provider 09/22/2209/28/22 Deven Schulte MD [address] [place] [address] [phone] Assigned Surgical Provider 09/29/22 Dong Craft MD [address] [place] [address] Hematology 10/09/22 Dong Craft MD [address] [place] [address] 21743 Assigned Cancer Care Provider 11/24/22 05/24/23 Grazyna Damian, NORBERT [address] [place] [address]697 Assigned Cancer Care Provider 05/25/23 documented as of this encounter
--- OUTSIDE RECORDS SUMMARY | 2023-11-02 14:37 | XMS_ITS | Encounter Summary ---
Author Organization [place] Address [address] [facility] [place] [address] Care Team Providers Care Market Research Worker Name Role Phone Олег Kaiser MD Unavailable [phone] Loretta Elizalde PA-C Unavailable [phone] Loretta Elizalde PA-C Primary Care Provider [phone] Dong Craft MD Unavailable [phone] Dong Craft MD Unavailable [phone] Grazyna Damian CNP Unavailable [phone] Encounter Details Date Type Department Care Team (Late Contact Info) Description 01/07/2023 [facility] [place] [address] [address] Hallie Maria Social History Tobacco Use Types Packs/Day Years [...] Description 11/06/2023 4:00 PM CDT [facility] [address] [place] [phone] Loretta Elizalde PA-C [address] [place], [place] [phone] 12/11/2023 7:30 AM CDT [facility] [address] [place] [phone] Loretta Elizalde PA-C [address] [place], [place] [phone] documented as of this encounter Visit Diagnoses Not on filedocumented in this encounter Additional Health Concerns Assessment Noted Time PHQ-9 Depression Total Score: 2 09/12/19 7:51 AM CDT documented as of this encounter Care Teams Market Research Worker Relationship Specialty Start Date End Date Loretta Elizalde PA-C [address] [place] [address] PCP - General Family Medicine 09/25/22 Олег Kaiser MD [address] [place] [address] [phone] Urology 04/05/21 Loretta Elizalde PA-C [address] [place] [address] Assigned PCP 09/22/22 Dong Craft MD [address] [place] [address] Hematology 10/09/22 Dong Craft MD [address] [place] [address]508 Assigned Cancer Care Provider 11/24/22 05/24/23 Grazyna Damian CNP [address] [place] [address] 054231 Assigned Cancer Care Provider 05/25/23 documented as of this encounter
--- OUTSIDE RECORDS SUMMARY | 2023-11-02 14:37 | XMS_ITS | Encounter Summary ---
Author Organization [place] Address [address] [place] [address]. [place] [address] Care Team Providers Care Global Supply Chain Director Name Role Phone [facility] Unavailable Jennifer Pond MD Primary Care Provider [facility] Primary Care Pro vider Dany Hirsch Primary Care Provider Johnie Farmer Primary Care Provider JobОлег bergeron MD Unavailable [phone] Deven Schulte MD Unavailable [phone] Олег Kaiser MD Unavailable [phone] Loretta Elizalde PA-C Unavailable [phone] Олег Kaiser MD Unavailable +[phone] Loretta Elizalde PA-C Primary Care Provider Deven Schulte MD Unavailable [phone] Dong Craft MD Unavailable [phone] Dong Craft MD Unavailable [phone] Grazyna Damian CNP Unavailable [phone] Encounter Details Date Type Department Care Team (Late st Contact Info) Description 10/13/2015 MyC Medical Advice [place] [phone] Ruth Leigh LPN Social History Tobacco Use Types Packs/Day Years Used Date Smoking Tobacco: Never Smokeless Tobacco: Never Alcohol Use Standard Drinks/Week Comments No 0 (1 standard drink = 0.6 oz pure alcohol) 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 04/18/2020 04/18/2020 05/09/2020 11:4 0 PM OCCUPATIONAL THERAPY PROFESSOR documented as of this encounter Care Teams Global Supply Chain Director Relationship Specialty Start Date End Date Jennfier Pond MD [address] [facility] [place] [address] PCP - General Internal Medicine 11/08/14 08/26/16 [facility] [address] [place] [address] PCP - General 08/27/16 10/26/16 Dany Hirsch [address] [place] [address] PCP - General Family Practice 10/27/16 01/29/18 Johnie Farmer [address] [place] [address] PCP - General Family Practice 01/30/18 09/24/22 Loretta Elizalde PA-C [address] [place] [address] PCP - General Family Medicine 09/25/[address] [address] 06/14/11 08/26/16 Олег Kaiser MD [address] [place] [address] Urology 04/05/21 Deven Schulte MD [address] [place] [address] 600025 Assigned Surgical Provider 04/23/21 09/21/22 Олег Kaiser MD [address] [place] [address] [phone] Assigned Surgical Provider 04/16/21 04/22/21 Loretta Elizalde PA-C [address] [place] [address] Assigned PCP 09/22/22 Олег Kaiser MD [address] [place] [address] [phone] Assigned Surgical Provider 09/22/22 09/28/22 Deven Schulte MD [address] [place] [address] Assigned Surgical Provider 09/29/22 10/19/22 Dong Craft MD [address] [place] [address] 970005 MD [facility] 10/09/22 Dong Craft MD [address] [place] [address] Assigned Cancer Care Provider 11/24/22 05/24/23 Grazyna Damian CNP [address] [place] [address] [phone] Assigned Cancer Care Provider 05/25/23 documented as of this encounter
--- OUTSIDE RECORDS SUMMARY | 2023-11-02 14:37 | XMS_ITS | Encounter Summary ---
Author Organization [place] Address [address] [facility] [place] [address] Care Team Providers Care Paralegal Name Role Phone Олег Kaiser MD Unavailable [phone] Loretta Elizalde PA-C Unavailable [phone] Loretta Elizalde PA-C Primary Care Provider [phone] Dong Craft MD Unavailable [phone] Dong Craft MD Unavailable [phone] Grazyna Damian CNP Unavailable [phone] Encounter Details Date Type Department Care Team (Late Contact Info) Description 02/01/[address] [facility] [address] [place] [address] Bhavik Coelho MA Social History Tobacco Use Types Packs/Day Years [...] Description 11/06/2023 4:00 PM CDT [facility] [address] [place] [address] Loretta Elizalde PA-C [address] [place] [address] 12/11/2023 7:30 AM CDT Office Visit [facility] [address] [place] [phone] Loretta Elizalde PA-C [address] [place] [address] documented as of this encounter Visit Diagnoses Not on filedocumented in this encounter Additional Health Concerns Assessment Noted Time PHQ-9 Depression Total Score: 2 09/12/19 7:51 AM CDT documented as of this encounter Care Teams Paralegal Relationship Specialty Start Date End Date Loretta Elizalde PA-C [address] [place] [address] PCP - General Family Medicine 09/25/22 JobОлег MD [address] [place] [address] [phone] Urology 04/05/21 Loretta Elizalde PA-C [address] [place] [address] Assigned PCP 09/22/22 Dong Craft MD [address] [place] [address] 095305 Hematology 10/09/22 Dong Craft MD [address] [place] [address] 644945 Assigned Cancer Care Provider 11/24/22 05/24/23 Grazyna Damian, NORBERT [address] [facility] [address] [place] [address] Assigned Cancer Care Provider 05/25/23 documented as of this encounter
--- OUTSIDE RECORDS SUMMARY | 2023-11-02 14:37 | XMS_ITS | Encounter Summary ---
Author Organization [place] Address [address] [place] [address]. [place] [address] Care Team Providers Care City Collector Name Role Phone [facility] Unavailable Jennifer Pond MD Primary Care Provider [facility] Primary Care Pro vider Dany Hirsch Primary Care Provider Johnie Farmer Primary Care Provider JobОлег bergeron MD Unavailable [phone] Deven Schulte MD Unavailable [phone] Олег Kaiser MD Unavailable [phone] Loretta Elizalde PA-C Unavailable [phone] Олег Kaiser MD Unavailable +[phone] Loretta Elizalde PA-C Primary Care Provider Deven Schulte MD Unavailable [phone] Dong Craft MD Unavailable [phone] Dong Craft MD Unavailable [phone] Grazyna Damian CNP Unavailable [phone] Encounter Details Date Type Department Care Team (Late st Contact Info) Description 10/13/2015 MyC Medical Advice [place] [phone] Ruth Leigh LPN Social History Tobacco Use [...] Description 11/06/2023 4:00 PM CDT Virtual Visit [facility] [address] [place] [address] Loretta Elizalde PA-C [address] [place], [place] [phone] 12/11/2023 7:30 AM CDT [facility] [address] [place] [phone] Loretta Elizalde PA-C [address] [place], [place] [phone] documented as of this encounter Visit Diagnoses Not on filedocumented in this encounter Additional Health Concerns Infection Onset Date Last Indicated Resolved Time Rule Out COVID-19 10/09/2019 10/09/2019 10/09/2019 9:36 PM CDT Rule Out COVID-19 11/20/2019 11/20/2019 11/21/2019 5:10 PM CDT Rule Out COVID-19 11/25/2019 11/25/2019 11/26/2019 4:41 PM CDT Rule Out COVID-19 04/18/2020 04/18/2020 04/18/2020 4:22 PM POWDER GUARD COVID-19 04/18/2020 04/18/2020 05/09/2020 11:4 0 PM POWDER GUARD documented as of this encounter Care Teams City Collector Relationship Specialty Start Date End Date Jennifer Pond MD [address] [facility] [place] [address] PCP - General Internal Medicine 11/08/14 08/26/16 [facility] [address] [place] [address] PCP - General 08/27/16 10/26/16 Dany Hirsch [address] [place] [address] PCP - General Family Practice 10/27/16 01/29/18 Johnie Farmer [address] [place] [address] PCP - General Family Practice 01/30/18 09/24/22 Loretta Elizalde PA-C [address] [place] [address] PCP - General Family Medicine 09/25/[address] [address] 06/14/11 08/26/16 Олег Kaiser MD [address] [place] [address] Urology 04/05/21 Deven Schulte MD [address] [place] [address] [phone] Assigned Surgical Provider 04/23/21 09/21/22 Олег Kaiser MD [address] [place] [address] 384215 Assigned Surgical Provider 04/16/21 04/22/21 Loretta Elizalde PA-C [address] [place] [address] Assigned PCP 09/22/22 Олег Kaiser MD [address] [place] [address] [phone] Assigned Surgical Provider 09/22/22 09/28/22 Deven Schulte MD [address] [place] [address] Assigned Surgical Provider 09/29/22 10/19/22 Dong Craft MD [address] [place] [address] 659105 MD [facility] [place] 10/09/22 Dong Craft MD [address] [place] [address] Assigned Cancer Care Provider 11/24/22 05/24/23 Grazyna Damian CNP [address] [place] [address] [phone] Assigned Cancer Care Provider 05/25/23 documented as of this encounter
--- OUTSIDE RECORDS SUMMARY | 2023-11-02 14:37 | XMS_ITS | Clinical Summary ---
Author Organization [facility] Address [address] [facility] [address] Care Team Providers Care Director Of Labor And Delivery Name Role Phone Олег Kaiser MD Unavailable [phone] Loretta Elizalde PA-C Unavailable [phone] Loretta Elizalde PA-C Primary Care Provider [phone] Dong Craft MD Unavailable [phone] Grazyna Damian CNP Unavailable [phone] Allergies Active Allergy Reactions Criticality Noted Date [...] been seen in emergency departments frequently in [phone] for epigastric abdominal pain. Has chronic pain of 7/10 noted on December 2018 [facility] admission. He has had significant workup for this pain throughout this time. Patient has had multiple gallbladder US and CT abdomen/pelvis during this time that have been unremarkable. He had EGD in September 2018 through [facility] that was normal. He saw general surgery POACHER WRINGER OPERATOR through [facility] clinic on 01/06/19 that thought some of pain [...] care provider CONTACT INFORMATION FOR PMD OR MANAGER HEART FAILURE: Johnie Farmer MD [phone] PAIN CONTRACT CLINIC/PRESCRIBER: N/A RESTRICTED STATUS IF [...] Overview: H/o overdose attempt (2006), hospitalized at [facility] 2010 Vitamin D deficiency 05/16/2010 Acute gout of right knee, unspecified cause 05/29 S/P gastric bypass 06/25/2008 09/11/2022 Overview: ~2001, [facility], Dr Zhou? 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 Still going to AA Essential hypertension 07/19/200911/08 Type II diabetes mellitus 06/25/2008 Bariatric surgery status 06/25/2008 Encounters Date Type Department Care Team Description 10/30/[address] [facility] [address] [place] [address] Loretta Elizalde, MARYC Refill Request (FLUoxetine (PROZAC) 40 MG capsule and albuterol (PROAIR HFA/PROVENTIL HFA/VENTOLIN HFA) 108 (90 Base) MCG/ACT inhaler) 08/19/[address] [facility] Marrow Transplant Program [address] [address] Eleanor Schwartz from Last 3 Months Immunizations Name Administration Dates Next Due COVID-19 12+ () (Pfizer) 03/28/2023 COVID-19 MONOVALENT 12+ (Pfizer) 11/04/2020,09/25 Flu, Unspecified 03/15/2019 [id number] Novel Flu P-free 07/08/2009 HepB 04/11/2012,05/12/2010,02/09/2010 Hepatitis B, Adult 04/11/2012,05/12/2010, 010 Influenza (H1N1) 07/08/2009 Influenza (IIV3) PF 03/11/2014, 2,02/23/2011,2009 Influenza Vaccine 18-64 (Flublok) 03/28/2021 Influenza Vaccine >6 months,quad, PF 06/2022,04/10/2022,02/12/2018,2016,02/09/2016,03/11/2014 Influenza, seasonal, injectable, PF 02/09/2010 Pneumococcal 20 valent Conju gate (Prevnar 20) 03/28/2023,09/11/2022 Pneumococcal 23 valent 07/18/2009 TDAP (Adacel,Boostrix) 07/16/2021,07/18/2009 Family History Medical History Relation Comments Cerebrovascular Disease Father Gout Father Hypertension Father Lung Cancer Father Hypertension Mother Cerebrovascular Disease Paternal Grandfather Cerebrovascular Disease Paternal Uncle 1 Myocardial Infarction Paternal Uncle 1 Cerebrovascular Disease Paternal Uncle 2 Depression Sister 1 Hypertension Sister 1 Breast Cancer No family hx of Colon Cancer No family hx of Prostate Cancer No family hx of Relation Status Comments Brother 1 Alive adopted Brother 2 Alive adopted Daughter 1 Alive adopted Daughter 2 Alive adopted Father Alive Mother Alive Paternal Grandfather Paternal Uncle 1 Paternal Uncle 2 Sister 1 Alive Sister 2 Alive adopted Sister 3 Alive adopted Sister 4 Alive adopted Son Alive adopted Social History Tobacco Use Types Packs/Day Years [...] Comments Blood Pressure 153/95 05/14/2023 12:14 PM BUSINESS INSURANCE AGENT Pulse 89 05/14/2023 12:14 PM BUSINESS INSURANCE AGENT Temperature 36.4 ??C (97.6 ??F) 05/14/2023 12:[address] Respiratory Rate 18 05/14/2023 12:14 PM BUSINESS INSURANCE AGENT Oxygen Saturation 98% 05/14/2023 12:14 PM BUSINESS INSURANCE AGENT Inhaled Oxygen Concentration - - Weight 99.3 kg (219 lb) 05/14/2023 12:14 PM BUSINESS INSURANCE AGENT Height 175.3 cm (5' 9) 10/16/2022 1:50 PM CDT Body Mass Index 32.34 10/16/2022 1:50 PM CDT Plan of Treatment Upcoming Encounters Date Type Department Care Team (Late st Contact Info) Description 11/06/2023 4:00 PM CDT Virtual Visit [address] [address] Loretta Elizalde PA-C [address] [place] [address] 12/11/2023 7:30 AM CDT Office Visit [facility] [address] [place] [phone] Loretta Elizalde PA-C [address] [place] [address] Health Maintenance Due Date Last Done Comments CT COLONOGRAPHY 1974 EYE EXAM 1974 FLEX SIG 1974 sDNA (Cologuard) 1974 FIT 06/23/2020 06/23/2019 A1C 03/13/2023 09/11/2022, 03/27, 04/18/2020, Additional history exists ASTHMA CONTROL TEST 03/13/2023 09/11/2022 PHQ-9 03/13/2023 09/11/2022, 10/25, 09/22/2013 ANNUAL REVIEW OF HM ORDERS 09/12/2023 09/11/2022 ASTHMA ACTION PLAN 09/12/2023 09/11/2022, 0 09/11/2022, 09/11/2022, Additional history exists DIABETIC FOOT EXAM 09/12/2023 09/11/2022, 0 09/11/2022, 09/22/2013 LIPID 09/12/2023 09/11/2022, 09/22/2013 YEARLY PREVENTIVE VISIT 09/12/2023 09/11/2022 MICROALBUMIN 09/26/2023 09/25/2022, 10/25, 09/22/2013 BMP 10/05/2023 10/04/2022, 09/24, 10/02/2022, Additional history exists ZOSTER IMMUNIZATION (1 of 2) 02/07/2024 ADVANCE CARE PLANNING 09/12/2027 09/11/2022 , 09/11/2022, 10/22/2013 DTAP/TDAP/TD IMMUNIZATION (3 - Td or Tdap) 07/16/2031 07/16/2021, 07/18/2009 COLONOSCOPY 10/03/2032 10/03/2022, 09/24, 10/03/2022, Additional history exists COLORECTAL CANCER SCREENING 10/03/2032 HEPATITIS B IMMUNIZATION Completed 012, 04/11/2012, 05/12/2010, Additional history exists DEPRESSION ACTION PLAN Completed 10/13/2015, 2014 HEPATITIS C SCREENING Completed 09/11/2022 HIV SCREENING Completed 09/11/2022 COVID-19 Vaccine Completed 03/28/2023, , 07/16/2021, Additional history exists INFLUENZA VACCINE Completed 03/28/2023, , 03/28/2021, Additional history exists Pneumococcal Vaccine: Pediatrics (0 to 5 Years) and At-Risk Patients (6 to 64 Years) Completed 03/28/2023, 09/11/2022, 07/18/2009 HPV IMMUNIZATION Aged Out No longer e ligible based on patient's age to complete this topic IPV IMMUNIZATION Aged Out No longer e ligible based on patient's age to complete this topic MENINGITIS IMMUNIZATION Aged Out No l onger eligible based on patient's age to complete this topic RSV MONOCLONAL ANTIBODY Aged Out No l onger eligible based on patient's age to complete this topic Goals Goal Patient Goal Type Associated Problems [...] my appointments. Medical Devices Implanted Type Area Justice Court Judge Device Identifier Shelf Expiration Date Model / Serial / Lot Stent Ureteral Polaris Ultra [id number] - [id number] Implanted:Qty: 1 on 04/08/2021 by Олег Kaiser MD at [facility] Stent Right: Abdomen [employer] 01/06/2024 [id number] / / [id number] Procedures Procedure Name Priority Date/Time Associated Diagnosis [...] BLOOD STOOL STAT 06/23/2019 9: 59 AM BUSINESS INSURANCE AGENT ASTHMA ACTION PLAN Routine 10/13/2015 9: 27 AM CDT C FOOT EXAM Routine 09/22/2013 1:08 PM CDT Diabetes mellitus, type 2 (H) from Last 3 Months or Most Recently Relevant to Health Maintenance Results * (ABNORMAL) Basic metabolic panel (10/04/2022 6:02 AM CDT) Sodium 138 136 - 145 mmol/L 10/04/2022 7:04 AM CDT [facility] Potassium 3.5 3.4 - 5.3 mmol/L 10/04/2022 7:04 AM CDT [facility] Chloride 106 98 - 107 mmol/L 10/04/2022 7:04 AM CDT [facility] Carbon Dioxide (CO2) 24 22 - 29 mmol/L 10/04/2022 7:04 AM CDT LABORATORY Anion Gap 8 7 - 15 mmol/L 10/04/2022 7:04 AM CDT LABORATORY Urea Nitrogen 7.7 6.0 - 20.0 mg/dL 10/04/2022 7:04 AM CDT LABORATORY Creatinine 1.02 0.67 - 1.17 mg/dL 10/04/2022 7:04 AM CDT LABORATORY Calcium 8.4(L) 8.6 - 10.0 mg/dL 10/04/2022 7:04 AM CDT LABORATORY Glucose 130(H) 70 - 99 mg/dL 10/04/2022 7:04 AM CDT LABORATORY GFR Estimate >90 >60 mL/min/1.7 3m2 10/04/2022 7:04 AM CDT LABORATORY Comment:eGFR calculated us2020 CKD-EPI equation. Blood STRUCTURE OF RIGHT HAND / Unknown Venipuncture / Unknown 10/04/2022 6:02 AM CDT 10/04/2022 6:30 AM CDT Paula Parr MD LAB - BLOOD ORDER R[facility] [address] [facility] (1st floor, no room number) [place] [address], [facility] [phone] * COLONOSCOPY (10/03/2022 12:08 PM CDT) [facility] COLONOSCOPY [facility] Patient Name: Alex ??Salter ?Procedure Date: [...] and ?oxygen saturations were monitored continuously. The ?Olympus Adult Colonoscope, Model # CF-SD108S, ?[place]ora # 226, SN # [id number] was introduced through ?the anus and advanced [...] Note Initiated On: 10/03/2022 12:08 PM MRN: ?[id number] Procedure Date: ? 10/03/2022 12:08:54 PM Scope [...] 17.00 mg/g Cr 09/25/2022 10:01 PM CDT [facility] Comment: Microalbuminuria is defined as an [...] control, and institution of therapy with an juxlyyojvlj-zkouxisjlz-uvfjqo (ABNER) inhibitor (if the patient can tolerate it). ?? Urine URINE SPECIMEN / Unknown Non-blood Collection / Unknown 09/25/2022 3:40 PM CDT 09/25/2022 3:41 PM CDT Loretta Elizalde PA-C LAB - URINE ORDERAB LES [facility] Lab [address] [facility], [address] [address], [facility] [phone] * HIV Antigen Antibody Combo (09/11/2022 8:48 AM CDT) Pathologist [facility] HIV Antigen Antibody Combo Nonreactive Nonreactive 09/11/2022 5:57 PM CDT SPECIALTY CORE/PROT/EN DO Comment:HIV-1 p24 Ag & HIV-1 /HIV-2 Ab Not Detected Blood BLOOD SPECIMEN / Unknown Venipuncture / Unknown 09/11/2022 8:48 AM CDT 09/11/2022 8:48 AM CDT Loretta HERNANDEZC LAB - BLOOD ORDERAB LES UM SPECIALTY CORE/PROT/ENDO UM Specialty Core/Prot/Endo [address] [facility], Room [address] [phone] * Hepatitis C Screen Reflex to HCV [...] - BLOOD ORDERAB LES UM SPECIALTY CORE/PROT/ENDO Specialty Core/Prot/Endo [address] [facility], Room [address] [phone] * (ABNORMAL) Lipid panel reflex to direct [...] PA-C LAB - BLOOD ORDERAB LES LABORATORY [facility] [address] [facility], [address] [phone] [phone] * (ABNORMAL) HEMOGLOBIN A1C (09/11/2022 8:48 AM CDT) Hemoglobin A1C 8.9(H) 0.0 - 5.6 % 09/11/2022 9:06 AM CDT LABORATORY Comment: Normal <5.7% Prediabetes 5.7-6.4% ?? Diabetes 6.5% or higher Note: Adopted from ADA consensus guidelines. Blood BLOOD SPECIMEN / Unknown Venipuncture / Unknown 09/11/2022 8:48 AM CDT 09/11/2022 8:48 AM CDT Narrative LABORATORY - 09/11/2022 9:06 AM CDT Verified by repeat analysis DA Loretta Elizalde PA-C LAB - BLOOD ORDERAB LES RM LABORATORY [facility] [address] [facility] (no room number, 1st floor of clinic) [place] [address], [facility] [phone] * Stool: occult blood (06/23/2019 9:59 AM BUSINESS INSURANCE AGENT) Occult Blood Negative NEG^Negati ve 06/23/2019 10:11 AM BUSINESS INSURANCE AGENT [facility] Comment: Called to RUTH PRITCHETT IN ERA @ 1010 ON 06/23/19, NB Stool specimen (specimen) 06/23/2019 9:59 AM BUSINESS INSURANCE AGENT 06/23/2019 10:05 AM BUSINESS INSURANCE AGENT Destinee Graham DO LAB - STOOLS ORDER RIMMA MISYS [facility] [address] [place] [address], [facility] [phone] from Last 3 Months or Most Recently Relevant to Health Maintenance Advance Directives For more information, please contact: [phone] * Full Code (Latest Code Status on [...] with patie nt/legal decision maker Care Teams Director Of Labor And Delivery Relationship Specialty Start Date End Date Loretta Elizalde PA-C [address] [place] [address] PCP - General Family Medicine 09/25/22 JobОлег MD [address] [place] [address] Urology 04/05/21 Loretta Elizalde PA-C [address] [place] [address] Assigned PCP 09/22/22 Dong Craft MD [address] [place] [address] Hematology 10/09/22 Grazyna Damian, NORBERT [address] [place] [address] [address] [place], [place] 052847 Assigned Cancer Care Provider 05/25/23
--- OUTSIDE RECORDS SUMMARY | 2023-11-02 14:37 | XMS_ITS | Encounter Summary ---
Author Organization [facility] Address [address] [facility] [place] [address] Care Team Providers Care Adjuster Name Role Phone Олег Kaiser MD Unavailable [phone] Loretta Elizalde PA-C Unavailable [phone] Loretta Elizalde PA-C Primary Care Provider [phone] Dong Craft MD Unavailable [phone] Dong Craft MD Unavailable [phone] Grazyna Damian CNP Unavailable [phone] Encounter Details Date Type Department Care Team (Late Contact Info) Description 03/25/[address] [facility] [address] [place] [address] Faith Cano Social History Tobacco [...] Upcoming Encounters Date Type Department Care Team ([facility] Contact Info) Description 11/06/2023 4:00 PM CDT [facility] [address] [place] [phone] Loretta Elizalde PA-C [address] [place] [address] 12/11/2023 7:30 AM CDT Office Visit [facility] [address] [place] [phone] Loretta Elizalde PA-C [address] [place] [address] documented as of this encounter Visit Diagnoses Not on filedocumented in this encounter Additional Health Concerns Assessment Noted Time PHQ-9 Depression Total Score: 2 09/12/19 7:51 AM CDT documented as of this encounter Care Teams Adjuster Relationship Specialty Start Date End Date Loretta Elizalde PA-C [address] [place] [address] PCP - General Family Medicine 09/25/22 Олег Kaiser MD [address] [place] [address] [id number] Urology 04/05/21 Loretta Elizalde PA-C [address] [place] [address] Assigned PCP 09/22/22 Dong Craft MD [address] [place] [address] 235355 Hematology 10/09/22 Dong Craft MD [address] [place] [address] [id number] Assigned Cancer Care Provider 11/24/22 05/24/23 Grazyna Damian CNP [address] [address] Assigned Cancer Care Provider 05/25/23 documented as of this encounter
--- OUTSIDE RECORDS SUMMARY | 2023-11-02 14:37 | XMS_ITS | Encounter Summary ---
Author Organization [facility] Address [address] [facility] [place] [address] Care Team Providers Care Kinder Teacher Name Role Phone MarlenyJohnie Primary Care Provider [phone] Олег Kaiser MD Unavailable [phone] Deven Schulte MD Unavailable [phone] Loretta Elizalde PA-C Unavailable [phone] Олег Kaiser MD Unavailable [phone] Loretta Elizalde PA-C Primary Care Provider [phone] Deven Schulte MD Unavailable [phone] Dong Craft MD Unavailable [phone] Dong Craft MD Unavailable [phone] Grazyna Damian CNP Unavailable [phone] Encounter Details Date Type Department Care Team (Late st Contact Info) Description 07/16/2021 Documentation Only INTERFACED REPORT Unknown, Provider Social History Tobacco Use Types Packs/Day Years Used Date Smoking Tobacco: Never Smokeless Tobacco: Never Alcohol Use Standard Drinks/Week Comments Yes 0 (1 standard drink = 0.6 oz pur e alcohol) rare PHQ-2 Answer Date Recorded PHQ-2 Score 0 04/18/2021 Sex and Gender Information Value Date Recorded Sex Assigned at Not on file Gender Identity Not on file Sexual Orientation Not on file COVID-19 Exposure Response Date Recorded In the last month, have you been in contact with someone who was confirmed or suspected to have Coronavirus / COVID-19? No / Unsure 07/15/2021 6:20 PM IMPLEMENTATION SPECIALIST [employer] documented as of this encounter Plan of Treatment Upcoming Encounters Date Type Department Care Team (Late st Contact Info) Description 11/06/2023 4:00 PM CDT [facility] [address] [place] [phone] Loretta Elizalde PA-C [address] [place], [place] [phone] 12/11/2023 7:30 AM CDT Office Visit [facility] [address] [place] [phone] Loretta Elizalde PA-C [address] [place], [place] [phone] documented as of this encounter Visit Diagnoses Not on filedocumented in this encounter Care Teams Kinder Teacher Relationship Specialty Start Date End Date Johnie Farmer PCP - General Family Practice 01/30/18 09/24/22 Loretta Elizalde PA-C [address] [place], [place] [phone] PCP - General Family Medicine 09/25/22 Олег Kaiser MD [address] [place], [place] 9[address] Urology 04/05/21 Deven Schulte MD [address] [place] [address] [id number] Assigned Surgical Provider 04/23/21 Loretta Elizalde PA-C [address] [place] [address] Assigned PCP 09/22/22 Олег Kaiser MD [address] [place] [address] Assigned Surgical Provider 09/22/2209/28/22 Deven Schulte MD [address] [place] [address] Assigned Surgical Provider 09/29/22 Dong Craft MD [address] [place] [address] [id number] MD [facility] 10/09/22 Dong Craft MD [address] [place] [address] [phone] Assigned Cancer Care Provider 11/24/22 05/24/23 Grazyna Damian CNP [address] [place] [address] [id number] Assigned Cancer Care Provider 05/25/23 documented as of this encounter
--- OUTSIDE RECORDS SUMMARY | 2023-11-02 14:37 | XMS_ITS | Encounter Summary ---
Author Organization [place] Address [address] [place] [address] Care Team Providers Care Sex Offender Treatment Professional Name Role Phone MarlenyJohnie Primary Care Provider [phone] Олег Kaiser MD Unavailable [phone] Deven Schulte MD Unavailable [phone] Loretta Elizalde PA-C Unavailable [phone] Олег Kaiser MD Unavailable [phone] Loretta Elizalde PA-C Primary Care Provider [phone] Deven Schulte MD Unavailable [phone] Dong Craft MD Unavailable [phone] Dong Craft MD Unavailable [phone] Grazyna Damian CNP Unavailable [phone] Reason for Visit * Reason Onset Date Comments Diabetes Education 09/12/2022 Encounter Details Date Type Department Care Team (Late st Contact Info) Description 09/12/2022 Telephone [facility] [address] [place] [address] Loretta Elizalde PA-C [address] [place] [address] Diabetes Education Social History Tobacco Use Types Packs/Day Years [...] suspected to have Coronavirus/COVID-19? No / Unsure 09/11/2022 6:54 AM CDT documented as of this encounter Miscellaneous Notes * Telephone Encounter - Dena Wade - 09/19/2022 1:00 PM CDT Diabetes Education Scheduling Outreach #2: Call to patient to schedule. Left message with phone number to call to schedule. Dena Bird Diabetes and Nutrition Scheduling * Telephone Encounter - Christiane Kathleen - 09/12/2022 3:41 PM CDT Diabetes Education Scheduling Outreach #1: Call to patient to schedule. Left message with phone number to call to schedule. Plan for 2nd outreach attempt within 3 business days. Christiane Bird Diabetes and Nutrition Scheduling documented in this encounter Plan of Treatment Upcoming Encounters Date Type Department Care Team (Late st Contact Info) Description 11/06/2023 4:00 PM CDT Virtual Visit [facility] [address] [place] [phone] Loretta Elizalde PA-C [address] [place], [place] [phone] 12/11/2023 7:30 AM CDT Office Visit [facility] [address] [place] [phone] Loretta Elizalde PA-C [address] [place] [address] documented as of this encounter Visit Diagnoses Not on filedocumented in this encounter Additional Health Concerns Assessment Noted Time PHQ-9 Depression Total Score: 2 09/12/19 7:51 AM CDT documented as of this encounter Care Teams Sex Offender Treatment Professional Relationship Specialty Start Date End Date Johnie Farmer PCP - General Family Practice 01/30/18 09/24/22 Loretta Elizalde PA-C [address] [place] [address] PCP - General Family Medicine 09/25/22 Олег Kaiser MD [address] [place] [address] [id number] Urology 04/05/21 Deven Schulte MD [address] [place] [address] [phone] Assigned Surgical Provider 04/23/21 Loretta Elizalde PA-C [address] [place] [address] Assigned PCP 09/22/22 Олег Kaiser MD [address] [place] [address] 382605 Assigned Surgical Provider 09/22/2209/28/22 Deven Schulte MD [address] [place] [address] 532265 Assigned Surgical Provider 09/29/22 Dong Craft MD [address] [place], [place] [address] MD Gómez 10/09/22 Dong Craft MD [address] [place] [address] [phone] Assigned Cancer Care Provider 11/24/22 05/24/23 Grazyna Damian CNP [address] [place] [address] [id number] Assigned Cancer Care Provider 05/25/23 documented as of this encounter
--- OUTSIDE RECORDS SUMMARY | 2023-11-02 14:38 | XMS_ITS | Clinical Summary ---
Author Organization [facility] Address [address] [place] [address] Care Team Providers Care Engineering Consultant Name Role Phone Johnie Framer Primary Care Provider [phone] Clinic, Not Listed Unavailable Unavailable Allergies No known active allergies Medications Medication Sig Dispensed Refills Start Date End Date Status ondansetron (ZOFRAN) 4 mg oral ODTIndications:Non-i ntractable vomiting with nausea, unspecified vomiting type Dissolve 1-2 tablets (4-8 mg) in mouth every 8 (eight) hours as needed for nausea. 8 tablet 09/30/2018 Active amLODIPine (NORVASC) 10 mg oral tablet Take 1 tablet (10 mg) by mouth once daily. 0 10/04/2018 Active acetaminophen (TYLENOL) 500 mg oral tablet Take 2 tablets (1,000 mg) by mouth three times a day. 10/03/2018 Active lidocaine 4 % Top patch Apply 3 patches to skin once daily. to painful tender area 6 patch 10/03/2018 Active lisinopril (PRINIVIL) 20 mg oral tablet Take 1 tablet (20 mg) by mouth at bedtime. 90 tablet 10/03/2018 Active metFORMIN (GLUCOPHAGE) 500 mg oral tablet Take 2 tablets (1,000 mg) by mouth twice a day with breakfast and dinner. 180 tablet 10/04/2018 Active pantoprazole (PROTONIX) 20 mg oral delayed release tabletIndications:GE RD Take 1 tablet (20 mg) by mouth once daily Indications: GERD. 0 10/04/2018 Active sertraline (ZOLOFT) 100 mg oral tablet Take 1 tablet (100 mg) by mouth once daily. 10/03/2018 Active HYDROcodone-acetamin ophen (NORCO) 5-325 mg oral tablet Take 1 tablet by mouth every six (6) to eight (8) hours as needed (severe abdominal wall pain). 8 tablet 10/03/2018 Active Active Problems Problem Noted Date Diagnosed Date Abdominal wall pain in epigastric region 019 Epigastric pain 10/02/2018 Microcytic anemia 09/05/2017 H/O bariatric surgery 11/08/2014 Hypertension 03/11/2014 Pernicious anemia 09/22/2013 S/P gastric bypass 06/25/2008 Overview: ~2001, [facility], Dr Zhou? Social History Tobacco Use Types Packs/Day Years Used Date Smoking Tobacco: Never Smokeless Tobacco: Never Alcohol Use Standard Drinks/Week Comments Not Currently 0 (1 standard drink = 0.6 oz pur e alcohol) Sex and Gender Information Value Date Recorded Sex Assigned at Not on file Gender Identity Not on file Sexual Orientation Not on file Last Filed Vital Signs Vital Sign Reading Time Taken Comments Blood Pressure 161/102 12/25/2019 5:16 PM CDT Pulse 111 12/25/2019 5:16 PM CDT Temperature 37.1 ??C (98.7 ??F) 12/25/2019 5:16 PM CD T Respiratory Rate 18 12/25/2019 5:16 PM CDT Oxygen Saturation 100% 12/25/2019 5:16 PM CDT Inhaled Oxygen Concentration - - Weight 115.7 kg (255 lb) 10/02/2018 6:35 PM CDT Height 172.7 cm (5' 8) 10/02/2018 6:35 PM CDT Body Mass Index 38.77 10/02/2018 6:35 PM CDT Plan of Treatment Health Maintenance Due Date Last Done Comments Colonoscopy 1974 Eye Exam 1974 Hepatitis C Screening 1974 Anxiety Screening (KHALIF-2) 1975 Depression Assessment (PHQ-2) 1975 Pneumococcal <65 (2 of 2 - PCV) 07/18/2010 0 HgbA1C 04/05/2019 10/03/2018 Adult Tetanus Booster 07/18/2019 07/18/2009 Creatinine 10/03/2019 10/02/2018, 05/0 11/2018, 08/15/2018, Additional history exists COVID-19 Vaccine ( - 2022-2 4 season) 2023 Influenza Vaccine (Season Ended) 2024 02/12/2018, 04/02/2017, 02/09/2016, Additional history exists Procedures Procedure Name Priority Date/Time Associated Diagnosis Comments HBA1C / EAG Routine 10/03/2018 6:46 AM CDT BASIC METAB PROFILE STAT 10/02/2018 1 :35 PM CDT from Last 3 Months or Most Recently Relevant to Health Maintenance Results * (ABNORMAL) Hgb A1c (Glycosolated Hgb) (10/03/2018 6:46 AM CDT) HBA1C (GLYCOSOLATED HGB) 8.2(H) <5.7 % 10/03/2018 12:22 PM CDT [facility] EAG (EST. AVERAGE GLUCOSE) 189(H) <117 mg/dL 10/03/2018 12:22 PM CDT [facility] Blood 10/03/2018 6:46 AM CDT 10/03/2018 7:16 AM CDT Peggy Caba MD CHEMISTRY ORDERABLE [facility] [address] [place] [address] * (ABNORMAL) Basic Metabolic Profile (10/02/2018 1:35 PM CDT) Pathologist [facility] Sodium 141 136 - 145 mmol/L 10/02/2018 2:09 PM CDT [facility] Potassium 3.8 3.5 - 5.1 mmol/L 10/02/2018 2:09 PM T [facility] Chloride 110 98 - 112 mmol/L 10/02/2018 2:09 PM T [facility] Carbon Dioxide 24 21 - 32 mmol/L 10/02/2018 2:09 PM T [facility] BUN (Urea Nitro) 8 7 - 24 mg/dL 10/02/2018 2:09 PM CDT [facility] Creatinine 0.96 0.70 - 1.30 mg/dL 10/02/2018 2:09 PM CDT [facility] Est GFR (CKD-EPI) >60 >60 mL/min 10/02/2018 2:09 PM CDT [facility] EST GFR IF AM >60 >60 mL/min 10/02/2018 2:09 PM CDT [facility] Glucose 113(H) 74 - 106 mg/dL 10/02/2018 2:09 PM CDT [facility] Calcium, Serum 7.8(L) 8.5 - 10.1 mg/dL 10/02/2018 2:09 PM CDT [facility] Anion Gap 7.0 0.0 - 15.0 mmol/L 10/02/2018 2:09 PM CDT [facility] Blood 10/02/2018 1:35 PM CDT 10/02/2018 1:45 PM CDT Linn Jesus PA-C CHEMISTRY ORDERABLE [facility] [address] [place] [address] from Last 3 Months or Most Recently Relevant to Health Maintenance Advance Directives For more information, please contact: [phone] * Full Code (Latest Code Status on File) Date Activated Date Inactivated Comments 10/02/2018 6:16 PM 10/03/2018 10:01 PM Question Answer Comments How was code status determined? Patient Care Teams Engineering Consultant Relationship Specialty Start Date End Date Johnie Farmer [address] [place] [address] PCP - General Family Medicine 09/30/18 Clinic, Not Listed PCP - Primary Care Clinic 12/25/19
--- OUTSIDE RECORDS SUMMARY | 2023-11-02 14:38 | XMS_ITS | Encounter Summary ---
Author Organization [facility] Address [address] [address] Care Team Providers Care Gravel Hauler Name Role Phone Johnie Farmer MD Primary Care Provider [phone] Encounter Details Date Type Department Care Team (Late st Contact Info) Description 09/26/2013 Outside Hospital External to [facility], Provider HISTORY PHYSICAL Social History Tobacco Use Types Packs/Day Years Used Date Smoking Tobacco: Never Smokeless Tobacco: Never Alcohol Use Standard Drinks/Week Comments Yes 0 (1 standard drink = 0.6 oz pur e alcohol) less than one drink per week Sex and Gender Information Value Date Recorded Sex Assigned at Not on file Gender Identity Not on file Sexual Orientation Not on file documented as of this encounter Plan of Treatment Not on file documented as of this encounter Visit Diagnoses Not on filedocumented in this encounter Additional Health Concerns Infection Onset Date Last Indicated Resolved Time R/O COVID19 04/18/2020 04/18/2020 04/19/2020 5:02 PM REAL ESTATE SALESPERSON COVID19 04/18/2020 04/18/2020 05/09/2020 3:17 AM REAL ESTATE SALESPERSON documented as of this encounter Care Teams Gravel Hauler Relationship Specialty [place] [address] [place] [address] PCP - General Family Practice 01/30/18 documented as of this encounter
--- OUTSIDE RECORDS SUMMARY | 2023-11-02 14:38 | XMS_ITS | Referral Summary ---
Author Organization [facility] Address [address] [place] [address] Care Team Providers Care Structural Biologist Name Role Phone Johnie Farmer Primary Care Provider [phone] Clinic, Not Listed Unavailable Unavailable Allergies No [...] 09/22/2013 S/P gastric bypass 06/25/2008 Overview: ~2001, [facility], Dr Zhou? Social History Tobacco Use Types [...] 10/02/2018 6:35 PM CDT Plan of Treatment Not on file Procedures Procedure Name Priority Date/Time Associated Diagnosis Comments HBA1C / EAG Routine 10/03/2018 6:46 AM CDT BASIC METAB PROFILE STAT 10/02/2018 1 :35 PM CDT from Last 3 Months or Most Recently Relevant to Health Maintenance Results * (ABNORMAL) Hgb A1c (Glycosolated Hgb) (10/03/2018 6:46 AM CDT) HBA1C (GLYCOSOLATED HGB) 8.2(H) <5.7 % 10/03/2018 12:22 PM [facility] EAG (EST. AVERAGE GLUCOSE) 189(H) <117 mg/dL 10/03/2018 12:22 PM [facility] Blood 10/03/2018 6:46 AM CDT 10/03/2018 7:16 AM CDT Peggy Caba MD CHEMISTRY ORDERABLE [facility] [address] [place] [address] * (ABNORMAL) Basic Metabolic Profile (10/02/2018 1:35 PM CDT) Sodium 141 136 - 145 mmol/L 10/02/2018 2:09 PM [facility] Potassium 3.8 3.5 - 5.1 mmol/L 10/02/2018 2:09 PM [facility] Chloride 110 98 - 112 mmol/L 10/02/2018 2:09 PM [facility] Carbon Dioxide 24 21 - 32 mmol/L 10/02/2018 2:09 PM [facility] BUN (Urea Nitro) 8 7 - 24 mg/dL 10/02/2018 2:09 PM [facility] Creatinine 0.96 0.70 - 1.30 mg/dL 10/02/2018 2:09 PM [facility] Est GFR (CKD-EPI) >60 >60 mL/min 10/02/2018 2:09 PM [facility] EST GFR IF AM >60 >60 mL/min 10/02/2018 2:09 PM [facility] Glucose 113(H) 74 - 106 mg/dL 10/02/2018 2:09 PM [facility] Calcium, Serum 7.8(L) 8.5 - 10.1 mg/dL 10/02/2018 2:09 PM [facility] Anion Gap 7.0 0.0 - 15.0 mmol/L 10/02/2018 2:09 PM [facility] Blood 10/02/2018 1:35 PM CDT 10/02/2018 1:45 PM CDT Linn Jesus PA-C CHEMISTRY ORDERABLE [facility] [address] [place] [address] from Last 3 Months or Most Recently Relevant to Health Maintenance Advance Directives For more information, please contact: [phone] * Full Code (Latest Code Status on File) Date Activated Date Inactivated Comments 10/02/2018 6:16 PM 10/03/2018 10:01 PM Question Answer Comments How was code status determined? Patient Care Teams Structural Biologist Relationship Specialty Start Date End Date Johnie Farmer [address] [place] [address] PCP - General Family Medicine 09/30/18 Clinic, Not Listed PCP - Primary Care Clinic 12/25/19
--- OUTSIDE RECORDS SUMMARY | 2023-11-02 14:38 | XMS_ITS | Encounter Summary ---
[facility] Address [address], [place] [address] Care Team Providers Care Database Programmer Analyst Name Role Phone Johnie Farmer MD Primary Care Provider [phone] Encounter Details Date Type Department Care Team (Late st Contact Info) Description 01/18/2012 Correspondence None Inactive, Provider MED EQUIPMENT PROOF OF DELIVERY Social History Tobacco Use Types Packs/Day Years Used Date Smoking Tobacco: Never Smokeless Tobacco: Never Alcohol Use Standard Drinks/Week Comments Yes 0 (1 standard drink = 0.6 oz pur e alcohol) 2 per week Sex and Gender Information Value Date Recorded Sex Assigned at Not on file Gender Identity Not on file Sexual Orientation Not on file documented as of this encounter Progress Notes * Inactive, Provider - 01/18/2012 12:00 AM CDT documented in this encounter Plan of Treatment Not on file documented as of this encounter Visit Diagnoses Not on filedocumented in this encounter Additional Health Concerns Infection Onset Date Last Indicated Resolved Time R/O COVID19 04/18/2020 04/18/2020 04/19/2020 5:02 PM STEAMBOAT INSPECTOR COVID19 04/18/2020 04/18/2020 05/09/2020 3:17 AM STEAMBOAT INSPECTOR documented as of this encounter Care Teams Database Programmer Analyst Relationship Specialty [place] [address] [facility] [address] PCP - General Family Practice 01/30/18 documented as of this encounter
--- OUTSIDE RECORDS SUMMARY | 2023-11-02 14:38 | XMS_ITS | Encounter Summary ---
Author [facility] Address [address] [address] Care Team Providers Care Money Market Clerk Name Role Phone Johnie Farmer MD Primary Care Provider Encounter Details Date Type Department Care Team (Late st Contact Info) Description 09/28/2013 Outside Hospital External to [facility], Provider DISCHARGE SUMMARY Social History Tobacco Use Types Packs/Day Years [...] R/O COVID19 04/18/2020 04/18/2020 04/19/2020 5:02 PM AUTOMOTIVE BUYER COVID19 04/18/2020 04/18/2020 05/09/2020 3:17 AM AUTOMOTIVE BUYER documented as of this encounter Care Teams Money Market Clerk Relationship Specialty [place] [address] [place] [address] PCP - General Family Practice 01/30/18 documented as of this encounter
--- OUTSIDE RECORDS SUMMARY | 2023-11-02 14:38 | XMS_ITS | Encounter Summary ---
Author Organization [facility] Address [address] [place] [address]. [place] [address] Care Team Providers Care Product Design Manager Name Role Phone [facility] Unavailable Jennifer Pond MD Primary Care Provider [facility] Primary Care Pro vider Dany Hirsch Primary Care Provider Johnie Farmer Primary Care Provider [phone] JobОлег bergeron MD Unavailable [phone] Deven Schulte MD Unavailable [phone] Олег Kaiser MD Unavailable [phone] Loretta Elizalde PA-C Unavailable [phone] Олег Kaiser MD Unavailable [phone] Loretta Elizalde PA-C Primary Care Provider Deven Schulte MD Unavailable [phone] Dong Craft MD Unavailable [phone] Dong Craft MD Unavailable [phone] Grazyna Damian CNP Unavailable [phone] Encounter Details Date Type Department Care Team (Late st Contact Info) Description 06/16/2015 MyC Medical Advice [place] [phone] Ruth Leigh LPN Social History Tobacco Use [...] Description 11/06/2023 4:00 PM CDT Virtual Visit [facility] [address] [place] [address] Loretta Elizalde PA-C [address] [place], [place] [id number] 12/11/2023 7:30 AM CDT [facility] [address] [place] [phone] Loretta Elizalde PA-C [address] [place], [place] [id number] documented as of this encounter Visit Diagnoses Not on filedocumented in this encounter Additional Health Concerns Infection Onset Date Last Indicated Resolved Time Rule Out COVID-19 10/09/2019 10/09/2019 10/09/2019 9:36 PM CDT Rule Out COVID-19 11/20/2019 11/20/2019 11/21/2019 5:10 PM CDT Rule Out COVID-19 11/25/2019 11/25/2019 11/26/2019 4:41 PM CDT Rule Out COVID-19 04/18/2020 04/18/2020 04/18/2020 4:22 PM POSTAL CLERK COVID-19 04/18/2020 04/18/2020 05/09/2020 11:4 0 PM POSTAL CLERK documented as of this encounter Care Teams Product Design Manager Relationship Specialty Start Date End Date Jennifer Pond MD [address] [facility] [place] [address] PCP - General Internal Medicine 11/08/14 08/26/16 [facility] [address] [place] [address] PCP - General 08/27/16 10/26/16 Dany Hirsch [address] [place] [address] PCP - General Family Practice 10/27/16 01/29/18 Johnie Farmer [address] [place] [address] PCP - General Family Practice 01/30/18 09/24/22 Loretta Elizalde PA-C [address] [place] [address] PCP - General Family Medicine 09/25/[address] [address] 06/14/11 08/26/16 Олег Kaiser MD [address] [place] [address] Urology 04/05/21 Deven Schulte MD [address] [place] [address] [id number] Assigned Surgical Provider 04/23/21 09/21/22 Олег Kaiser MD [address] [place] [id number] Assigned Surgical Provider 04/16/21 04/22/21 Loretta Elizalde PA-C [address] [place] [address] Assigned PCP 09/22/22 Олег Kaiser MD [address] [place] [address] [id number] Assigned Surgical Provider 09/22/22 09/28/22 Deven Schulte MD [address] [place] [address] Assigned Surgical Provider 09/29/22 10/19/22 Dong Craft MD [address] [place] [id number] [facility] 10/09/22 Dong Craft MD [address] [place] [address] Assigned Cancer Care Provider 11/24/22 05/24/23 Grazyna Damian CNP [address] [place] [address] [id number] Assigned Cancer Care Provider 05/25/23 documented as of this encounter
--- OUTSIDE RECORDS SUMMARY | 2023-11-02 14:38 | XMS_ITS | Encounter Summary ---
Author Organization [facility] Address [address] [place] [address]. [place] [address] Care Team Providers Care Batting Machine Operator Name Role Phone [facility] Unavailable Jennifer Pond MD Primary Care Provider [facility] Primary Care Pro vider Dany Hirsch Primary Care Provider Johnie Farmer Primary Care Provider JobОлег bergeron MD Unavailable [phone] Deven Schulte MD Unavailable [phone] Олег Kaiser MD Unavailable [phone] Loretta Elizalde PA-C Unavailable [phone] Олег Kaiser MD Unavailable +[phone] Loretta Elizalde PA-C Primary Care Provider Deven Schulte MD Unavailable [phone] Dong Craft MD Unavailable [phone] Dong Craft MD Unavailable [phone] Grazyna Damian CNP Unavailable [phone] Encounter Details Date Type Department Care Team (Late st Contact Info) Description 01/24/2015 MyC Medical Advice [place] [phone] Ruth Leigh LPN Social History Tobacco Use [...] Description 11/06/2023 4:00 PM CDT Virtual Visit [facility] [address] [place] [address] Loretta Elizalde PA-C [address] [place], [place] [phone] 12/11/2023 7:30 AM CDT [facility] [address] [place] [phone] Loretta Elizalde PA-C [address] [place], [place] [phone] documented as of this encounter Visit Diagnoses Not on filedocumented in this encounter Additional Health Concerns Infection Onset Date Last Indicated Resolved Time Rule Out COVID-19 10/09/2019 10/09/2019 10/09/2019 9:36 PM CDT Rule Out COVID-19 11/20/2019 11/20/2019 11/21/2019 5:10 PM CDT Rule Out COVID-19 11/25/2019 11/25/2019 11/26/2019 4:41 PM CDT Rule Out COVID-19 04/18/2020 04/18/2020 04/18/2020 4:22 PM CLERICAL ORDER FILLER COVID-19 04/18/2020 04/18/2020 05/09/2020 11:4 0 PM CLERICAL ORDER FILLER documented as of this encounter Care Teams Batting Machine Operator Relationship Specialty Start Date End Date Jennifer Pond MD [address] [facility] [place] [address] PCP - General Internal Medicine 11/08/14 08/26/16 [facility] [address] [place] [address] PCP - General 08/27/16 10/26/16 Dany Hirsch [address] [place] [address] PCP - General Family Practice 10/27/16 01/29/18 Johnie Farmer [address] [place] [address] PCP - General Family Practice 01/30/18 09/24/22 Loretta Elizalde PA-C [address] [place] [address] PCP - General Family Medicine 09/25/[address] [address] 06/14/11 08/26/16 Олег Kaiser MD [address] [place] [address] Urology 04/05/21 Deven Schulte MD [address] [place] [address] [id number] Assigned Surgical Provider 04/23/21 09/21/22 Олег Kaiser MD [address] [place] [address] [id number] Assigned Surgical Provider 04/16/21 04/22/21 Loretta Elizalde PA-C [address] [place] [address] Assigned PCP 09/22/22 Олег Kaiser MD [address] [place] [address] [id number] Assigned Surgical Provider 09/22/22 09/28/22 Deven Schulte MD [address] [place] [address] Assigned Surgical Provider 09/29/22 10/19/22 Dong Craft MD [address] [place] [address] [id number] MD [facility] 10/09/22 Dong Craft MD [address] [place] [address] Assigned Cancer Care Provider 11/24/22 05/24/23 Grazyna Damian CNP [address] [place] [address] [id number] Assigned Cancer Care Provider 05/25/23 documented as of this encounter
--- OUTSIDE RECORDS SUMMARY | 2023-11-02 14:38 | XMS_ITS | Encounter Summary ---
Author Organization [facility] Address [address], [place] [address] Care Team Providers Care Special Investigation Unit Investigator Name Role Phone Johnie Farmer MD Primary Care Provider [phone] Encounter Details Date Type Department Care Team (Late st Contact Info) Description 04/03/2013 Outside Hospital External to [facility], Provider DISCHARGE SUMMARY Social History Tobacco Use [...] as of this encounter Progress Notes * [facility], Provider - 04/03/2013 12:00 AM CST FISHER documented in this encounter Plan of Treatment Not on file documented as of this encounter Visit Diagnoses Not on filedocumented in this encounter Additional Health Concerns Infection Onset Date Last Indicated Resolved Time R/O COVID19 04/18/2020 04/18/2020 04/19/2020 5:02 PM CRAB FISHER COVID19 04/18/2020 04/18/2020 05/09/2020 3:17 AM CRAB FISHER documented as of this encounter Care Teams Special Investigation Unit Investigator Relationship Specialty [place] [address] [place] [address] PCP - General Family Practice 01/30/18 documented as of this encounter
--- OUTSIDE RECORDS SUMMARY | 2023-11-02 14:38 | XMS_ITS | Encounter Summary ---
Author Organization [facility] Address [address] [address] Care Team Providers Care Mopper Name Role Phone Johnie Farmer MD Primary Care Provider [phone] Encounter Details Date Type Department Care Team (Late st Contact Info) Description 09/27/2013 Outside Hospital External to [facility], Provider CONSULT Social History Tobacco Use Types Packs/Day Years [...] R/O COVID19 04/18/2020 04/18/2020 04/19/2020 5:02 PM LICENSE INSPECTOR COVID19 04/18/2020 04/18/2020 05/09/2020 3:17 AM LICENSE INSPECTOR documented as of this encounter Care Teams Mopper Relationship Specialty [place] [address] [place] [address] PCP - General Family Practice 01/30/18 documented as of this encounter
--- OUTSIDE RECORDS SUMMARY | 2023-11-02 14:38 | XMS_ITS | Encounter Summary ---
[facility] Address [address] [address] Care Team Providers Care Java Xml Developer Name Role Phone Johnie Farmer MD Primary Care Provider [phone] Encounter Details Date Type Department Care Team (Late st Contact Info) Description 08/14/2012 Emergency Room External to [facility] SHORTNESS OF BREATH CHEST TIGHNESS AND HEEL PAIN Social History Tobacco Use Types Packs/Day Years [...] of this encounter Progress Notes * [facility] Provider - 08/14/2012 12:00 AM CDT documented in this encounter Plan of Treatment Not on file documented as of this encounter Visit Diagnoses Not on filedocumented in this encounter Additional Health Concerns Infection Onset Date Last Indicated Resolved Time R/O COVID19 04/18/2020 04/18/2020 04/19/2020 5:02 PM LOADER TECHNICIAN COVID19 04/18/2020 04/18/2020 05/09/2020 3:17 AM LOADER TECHNICIAN documented as of this encounter Care Teams Java Xml Developer Relationship Specialty [place] [address] [place] [address] PCP - General Family Practice 01/30/18 documented as of this encounter
--- OUTSIDE RECORDS SUMMARY | 2023-11-02 14:38 | XMS_ITS | Encounter Summary ---
Author Organization [facility] Address [address] [place] [address] Care Team Providers Care Senior Patrol Agent Name Role Phone Johnie Farmer MD Primary Care Provider [phone] Encounter Details Date Type Department Care Team (Late st Contact Info) Description 09/25/2013 Emergency Room External to [facility], Provider DEPRESSION Social History Tobacco Use Types Packs/Day Years [...] R/O COVID19 04/18/2020 04/18/2020 04/19/2020 5:02 PM COLLAR SHAPER OPERATOR COVID19 04/18/2020 04/18/2020 05/09/2020 3:17 AM COLLAR SHAPER OPERATOR documented as of this encounter Care Teams Senior Patrol Agent Relationship Specialty [place] [address] [place] [address] PCP - General Family Practice 01/30/18 documented as of this encounter
--- OUTSIDE RECORDS SUMMARY | 2023-11-02 14:38 | XMS_ITS | Encounter Summary ---
Author Organization [place] Address [address] [place] [address] Care Team Providers Care Information Technology Account Manager Name Role Phone [facility] Unavailable Kate Bradley PA-C Primary Care [facility]ider [facility] Care Isak calderon Jennifer Pond MD Primary Care Provider [facility] Primary Care Pro vider Dany Hirsch Primary Care Provider [phone] Johnie Farmer Primary Care Provider Олег Kaiser MD Unavailable + Deven Schulte MD Unavailable [phone] Олег Kaiser MD Unavailable +[phone] Loretta Elizalde PA-C Unavailable [phone] Олег Kaiser MD Unavailable + Loretta Elizalde PA-C Primary Care Provider [phone] Deven Schulte MD Unavailable [phone] Dong Craft MD Unavailable [phone] Dong Craft MD Unavailable [phone] Grazyna Damian CONTROL OFFICER Unavailable [phone] Encounter Details Date Type Department Care Team (Late st Contact Info) Description 10/22/2013 MyC Medical Advice [facility] [address] [place] [phone] Kate Bradley PA-C [facility] [address] [place] [address] Social History Tobacco Use Types Packs/Day Years [...] Description 11/06/2023 4:00 PM CDT Virtual Visit [facility] [address] [place] [phone] Loretta Elizalde PA-C [address] [place], [place] [phone] 12/11/2023 7:30 AM CDT [facility] [address] [place] [phone] Loretta Elizalde PA-C [address] [place], [place] [phone] documented as of this encounter Visit Diagnoses Not on filedocumented in this encounter Additional Health Concerns Infection Onset Date Last Indicated Resolved Time Rule Out COVID-19 10/09/2019 10/09/2019 10/09/2019 9:36 PM CDT Rule Out COVID-19 11/20/2019 11/20/2019 11/21/2019 5:10 PM CDT Rule Out COVID-11/25/2019 11/25/2019 11/26/2019 4:41 PM CDT Rule Out COVID-19 04/18/2020 04/18/2020 04/18/2020 4:22 PM RETORT COOLER COVID-19 04/18/2020 04/18/2020 05/09/2020 11:4 0 PM RETORT COOLER documented as of this encounter Care Teams Information Technology Account Manager Relationship Specialty Start Date End Date Kate Bradley PA-C [address] [place] [address] PCP - General Family Practice 09/22/13 10/27/14 [facility] [address] [place] [address] [place] [phone] PCP - General 10/28/14 11/07/14 Jennifer Pond MD [address] [place] [address] [place] [address] PCP - General Internal Medicine 11/08/14 08/26/[address] [address] PCP - General 08/27/16 10/26/16 Dany Hirsch [address] [place] [address] PCP - General Family Practice 10/27/16 01/29/18 Johnie Farmer [address] [place] [address] PCP - General Family Practice 01/30/18 09/24/22 Loretta Elizalde PA-C [address] [place] [address] PCP - General Family Medicine 09/25/22 [facility] [address] [place] [address] [phone] 06/14/11 08/26/16 Олег Kaiser MD [address] [place] [address] [id number] Urology 04/05/21 Deven Schulte MD [address] [place] [address] 533255 Assigned Surgical Provider 04/23/21 09/21/22 Олег Kaiser MD [address] [place] [address] [id number] Assigned Surgical Provider 04/16/21 04/22/21 Loretta Elizalde PA-C [address] [place] [address] Assigned PCP 09/22/22 Олег Kaiser MD [address] [place] [address] 953195 Assigned Surgical Provider 09/22/22 09/28/22 Deven Schulte MD [address] [place] [address] Assigned Surgical Provider 09/29/22 10/19/22 Dong Craft MD [address] [place] [address] MD Gómez 10/09/22 Dong Craft MD [address] [place] [address] Assigned Cancer Care Provider 11/24/22 05/24/23 Grazyna Damian CNP [address] [place] [address] [phone] Assigned Cancer Care Provider 05/25/23 documented as of this encounter
--- OUTSIDE RECORDS SUMMARY | 2023-11-02 14:38 | XMS_ITS | Encounter Summary ---
Author Organization [place] Address [address] [facility] [place] [address] Care Team Providers Care C.O.D. Clerk Name Role Phone [facility] Unavailable Kate Bradley PA-C Primary Care [facility]ider [facility] Primary Care Isak calderon Jennifer Pond MD Primary Care Provider [facility] Primary Care Pro vider Dany Hirsch Primary Care Provider [phone] Johnie Farmer Primary Care Provider Олег Kaiser MD Unavailable + Deven Schulte MD Unavailable [phone] Олег Kaiser MD Unavailable +[phone] Loretta Elizalde PA-C Unavailable [phone] Олег Kaiser MD Unavailable + Loretta Elizalde PA-C Primary Care Provider [phone] Deven Schulte MD Unavailable [phone] Dong Craft MD Unavailable [phone] Dong Craft MD Unavailable [phone] Grazyna Damian FUR BLOWER Unavailable [phone] Reason for Visit * Reason Comments Medication Refill Encounter Details Date Type Department Care Team (Late st Contact Info) Description 07/28/2014 Refill [facility] [address] [place] [address] Kate Bradley PA-C [facility] [address] [place], [place] [phone] Medication Refill Social History Tobacco Use Types Packs/Day Years [...] Description 11/06/2023 4:00 PM CDT [facility] [address] [place] [phone] Loretta Elizalde PA-C [address] [place], [place] [phone] 12/11/2023 7:30 AM CDT Office Visit [facility] [address] [place] [phone] Loretta Elizalde PA-C [address] [place], [place] [phone] documented as of this encounter Visit Diagnoses Not on filedocumented in this encounter Additional Health Concerns Infection Onset Date Last Indicated Resolved Time Rule Out COVID-19 10/09/2019 10/09/2019 10/09/2019 9:36 PM CDT Rule Out COVID-19 11/20/2019 11/20/2019 11/21/2019 5:10 PM CDT Rule Out COVID-19 11/25/2019 11/25/2019 11/26/2019 4:41 PM CDT Rule Out COVID-19 04/18/2020 04/18/2020 04/18/2020 4:22 PM FLOWER PICKER COVID-19 04/18/2020 04/18/2020 05/09/2020 11:4 0 PM FLOWER PICKER documented as of this encounter Care Teams C.O.D. Clerk Relationship Specialty Start Date End Date Kate Bradley PA-C [address] [place] [address] PCP - General Family Practice 09/22/13 10/27/14 [facility] [address] [place] [address] PCP - General 10/28/14 11/07/14 Jennifer Pond MD [address] [place] [address] [place] [address] PCP - General Internal Medicine 11/08/14 08/26/[address] [address] PCP - General 08/27/16 10/26/16 Dany Hirsch [address] [place] [address] PCP - General Family Practice 10/27/16 01/29/18 Johnie Farmer [address] [place] [address] PCP - General Family Practice 01/30/18 09/24/22 Loretta Elizalde PA-C [address] [place] [address] PCP - General Family Medicine 09/25/[address] [address] 06/14/11 08/26/16 Олег Kaiser MD [address] [place] [address] 688245 Urology 04/05/21 Deven Schulte MD [address] [place] [address] [id number] Assigned Surgical Provider 04/23/21 09/21/22 Олег Kaiser MD [address] [place] [address] Assigned Surgical Provider 04/16/21 04/22/21 Loretta Elizalde PA-C [address] [place] [address] Assigned PCP 09/22/22 Олег Kaiser MD [address] [place] [address] Assigned Surgical Provider 09/22/22 09/28/22 Deven Schulte MD [address] [place] [address] 620695 Assigned Surgical Provider 09/29/22 10/19/22 Dong Craft MD [address] [place] [address] MD Gómez 10/09/22 Dong Craft MD [address] [place] [address] Assigned Cancer Care Provider 11/24/22 05/24/23 Grazyna Damian CNP [address] [place] [address] Assigned Cancer Care Provider 05/25/23 documented as of this encounter
--- OUTSIDE RECORDS SUMMARY | 2023-11-02 14:38 | XMS_ITS | Encounter Summary ---
Author Organization [place] Address [address] [facility] [place] [address] Care Team Providers Care Studio Hand Name Role Phone [facility] Unavailable Kate Bradley PA-C Primary Care Pro vider [facility] Primary Care Isak calderon Jennifer Pond MD Primary Care Provider [facility] Primary Care Pro vider Dany Hirsch Primary Care Provider [phone] Johnie Farmer Primary Care Provider Олег Kaiser MD Unavailable + Deven Schulte MD Unavailable [phone] Олег Kaiser MD Unavailable +[phone] Loretta Elizalde PA-C Unavailable [phone] Олег Kaiser MD Unavailable + Loretta Elizalde PA-C Primary Care Provider [phone] Deven Schulte MD Unavailable [phone] Dong Craft MD Unavailable [phone] Dong Craft MD Unavailable [phone] Grazyna Damian SYSTEMS DEVELOPMENT CONSULTANT Unavailable [phone] Encounter Details Date Type Department Care Team (Late st Contact Info) Description 10/19/2014 MyC Medical Advice [facility] [address] [facility] [address] [place] [place] [address] [facility] Social History Tobacco Use Types Packs/Day [...] Description 11/06/2023 4:00 PM CDT [facility] [address] [place] [phone] Loretta Elizalde PA-C [address] [place], [place] [phone] 12/11/2023 7:30 AM CDT [facility] [address] [place] [phone] Loretta Elizalde PA-C [address] [place], [place] [phone] documented as of this encounter Visit Diagnoses Not on filedocumented in this encounter Additional Health Concerns Infection Onset Date Last Indicated Resolved Time Rule Out COVID-19 10/09/2019 10/09/2019 10/09/2019 9:36 PM CDT Rule Out COVID-19 11/20/2019 11/20/2019 11/21/2019 5:10 PM CDT Rule Out COVID-19 11/25/2019 11/25/2019 11/26/2019 4:41 PM CDT Rule Out COVID-19 04/18/2020 04/18/2020 04/18/2020 4:22 PM DOMESTIC TECHNICIAN COVID-04/18/2020 04/18/2020 05/09/2020 11:4 0 PM DOMESTIC TECHNICIAN documented as of this encounter Care Teams Studio Hand Relationship Specialty Start Date End Date Kate Bradley [place]-C [address] [place] [address] PCP - General Family Practice 09/22/13 10/27/14 [facility] [address] [facility] [place] [address] PCP - General 10/28/14 11/07/14 Jennifer Pond MD [address] [place] [address] PCP - General Internal Medicine 11/08/14 08/26/16 [facility] [address] [place] [address] PCP - General 08/27/16 10/26/16 Dany Hirsch [address] [place] [address] PCP - General Family Practice 10/27/16 01/29/18 Johnie Farmer [address] [place] [address] PCP - General Family Practice 01/30/18 09/24/22 Loretta Elizalde PA-C [address] [place] [address] PCP - General Family Medicine 09/25/22 [facility] [address] [place] [address] 06/14/11 08/26/16 Олег Kaiser MD [address] [place] [address] Urology 04/05/21 Deven Schulte MD [address] [place] [address] Assigned Surgical Provider 04/23/21 09/21/22 Олег Kaiser MD [address] [place] [address] Assigned Surgical Provider 04/16/21 04/22/21 Loretta Elizalde PA-C [address] [place], [place] [phone] Assigned PCP 09/22/22 Олег Kaiser MD [address] [place] [address] Assigned Surgical Provider 09/22/22 09/28/22 Deven Schulte MD [address] [place] [address] Assigned Surgical Provider 09/29/22 10/19/22 Dong Craft MD [address] [place] [address] MD Gómez 10/09/22 Dong Craft MD [address] [place] [address] Assigned Cancer Care Provider 11/24/22 05/24/23 Grazyna Damian CNP [address] [address] Assigned Cancer Care Provider 05/25/23 documented as of this encounter
--- OUTSIDE RECORDS SUMMARY | 2023-11-02 14:38 | XMS_ITS | Encounter Summary ---
Author Organization [place] Address [address] [place] [address]. [place] [address] Care Team Providers Care Energy Engineer Name Role Phone [facility] Unavailable Jennifer Pond MD Primary Care Provider [facility] Primary Care Pro vider Dany Hirsch Primary Care Provider Johnie Farmer Primary Care Provider [phone] JobОлег bergeron MD Unavailable +[phone] Deven Schulte MD Unavailable [phone] Олег Kaiser MD Unavailable +[phone] Loretta Elizalde PA-C Unavailable +[phone] Олег Kaiser MD Unavailable +[address] Loretta Elizalde PA-C Primary Care Provider Deven Schulte MD Unavailable [phone] Dong Craft MD Unavailable [phone] Dong Craft MD Unavailable [phone] Grazyna Damian CNP Unavailable [phone] Encounter Details Date Type Department Care Team (Late st Contact Info) Description 03/24/2015 MyC Medical Advice [place] [phone] Vibha Orozco Social History Tobacco Use Types Packs/Day Years [...] Description 11/06/2023 4:00 PM CDT [facility] [address] [place] [address] Loretta Elizalde PA-C [address] [place], [place] [phone] 12/11/2023 7:30 AM CDT [facility] [address] [place] [phone] Loretta Elizalde PA-C [address] [place] [address] documented as of this encounter Visit Diagnoses Not on filedocumented in this encounter Additional Health Concerns Infection Onset Date Last Indicated Resolved Time Rule Out COVID-19 10/09/2019 10/09/2019 10/09/2019 9:36 PM CDT Rule Out COVID-19 11/20/2019 11/20/2019 11/21/2019 5:10 PM CDT Rule Out COVID-19 11/25/2019 11/25/2019 11/26/2019 4:41 PM CDT Rule Out COVID-19 04/18/2020 04/18/2020 04/18/2020 4:22 PM DEVICE ENGINEER COVID-19 04/18/2020 04/18/2020 05/09/2020 11:4 0 PM DEVICE ENGINEER documented as of this encounter Care Teams Energy Engineer Relationship Specialty [place] [address] [place] [address] EUGENE CRISTOBAL [address] PCP - General Internal Medicine 11/08/14 08/26/16 [facility] [address] [place] [address] PCP - General 08/27/16 10/26/16 Dany Hirsch [address] [place] [address] PCP - General Family Practice 10/27/16 01/29/18 Johnie Farmer [address] [place] [address] PCP - General Family Practice 01/30/18 09/24/22 Loretta Elizalde PA-C [address] [place] [address] PCP - General Family Medicine 09/25/[address] [address] 06/14/11 08/26/16 Олег Kaiser MD [address] [place] [address] [id number] Urology 04/05/21 Deven Schulte MD [address] [place] [address] [id number] Assigned Surgical Provider 04/23/21 09/21/22 Олег Kaiser MD [address] [place] [address] [id number] Assigned Surgical Provider 04/16/21 04/22/21 Loretta Elizalde PA-C [address] [place], [place] [phone] Assigned PCP 09/22/22 Олег Kaiser MD [address] [place] [address] [id number] Assigned Surgical Provider 09/22/22 09/28/22 Deven Schulte MD [address] [place] [address] 508655 Assigned Surgical Provider 09/29/22 10/19/22 Dong Craft MD [address] [place] [address] [id number] MD [place] 10/09/22 Dong Craft MD [address] [place] [address] [id number] Assigned Cancer Care Provider 11/24/22 05/24/23 Grazyna Damian CNP [address] [place] [address] [phone] Assigned Cancer Care Provider 05/25/23 documented as of this encounter
--- OUTSIDE RECORDS SUMMARY | 2023-11-02 14:38 | XMS_ITS | Clinical Summary ---
Author Organization [facility] Address [place], [place] [address] Care Team Providers Care Dance Artist Name Role Phone [place] Primary Care Provider + Yaya Park MD Unavailable + Grazyna Reid RD Unavailable Unavailab Monique Bustos NP Unavailable Unavaila ble Allergies No known active allergies Medications Medication Sig Dispensed Refills Start Date End Date Status aspirin enteric coated 81 mg tablet Take 81 mg by mouth once daily with a meal. Active fluticasone-salmeter ol (ADVAIR DISKUS) 250-50 mcg/Dose diskus inhaler Inhale 1 Puff by mouth 2 times daily. Active ARIPiprazole (ABILIFY) 5 mg tablet Take 1 tablet by mouth every morning. 30 tablet 0 04/30/2014 Active zolpidem (AMBIEN) 10 mg tablet Take 1 tablet by mouth at bedtime if needed for Sleep. 7 tablet 0 04/30/2014 Active sertraline (ZOLOFT) 100 mg tablet Take 1 tablet by mouth every morning. 30 tablet 0 04/30/2014 Active albuterol HFA (PRO-AIR,VENTOLIN,CO OVENTIL) 90 mcg/actuation inhaler Inhale 2 Puffs by mouth 4 times daily if needed. 6.7 g 0 06/18/2014 Active famotidine (PEPCID) 20 mg tablet Take 1 tablet by mouth 2 times daily. 60 tablet 0 07/03/2014 Active acetaminophen (TYLENOL EXTRA STRGTH) 500 mg tabletIndications:Ef fusion of bursa of left knee Take 1 tablet by mouth every 6 hours if needed. Max acetaminophen dose: 4000mg in 24 hrs. 15 tablet 06/06/2018 Active lancets (ACCU-CHEK SOFTCLIX LANCETS) 1 Each. 11/22/2016 Active blood sugar diagnostic (BLOOD GLUCOSE TEST) strip Use to test three times a day. Use as directed. Pharmacy dispense brand based on insurance. 11/20/2016 Active amitriptyline (ELAVIL) 10 mg tablet Take 10 mg by mouth. 08/31/2017 Active ferrous sulfate, 65 mg elemental, tablet Take 325 mg by mouth. Active BREO ELLIPTA 200mcg/25mcg inhaler 10/08/2018 Acti ve metFORMIN (GLUCOPHAGE) 500 mg tablet Take 1,000 mg by mouth. 10/04/2018 Active ondansetron (ZOFRAN ODT) 4 mg disintegrating tablet 12/16/2018 Active pantoprazole (PROTONIX) 20 mg tablet Take 20 mg by mouth. Active simvastatin (ZOCOR) 40 mg tablet Take 40 mg by mouth. 11/06/2016 Active Active Problems Patient Care Coordination No te Formatting of this note is d ifferent from the original. 07/03/2005 LRMIREYA Prince 294# (5'8; bmi 45) FINDINGS: Gallbladder: Normal with no cholelithiasis, wall thickening or focal tenderness. Bile ducts: CHD is normal diameter. No intrahepatic biliary dilatation. Liver: Mild diffuse decreased echogenicity without focal abnormality. Pancreas: Completely obscured by intestinal gas. Right kidney: Normal. Other Result Information Interface, Radiant Ib - 12/16/2018 4:00 PM CDT RIGHT UPPER QUADRANT ULTRASOUND 12/16/2018 3:24 PM HISTORY: Epigastric/right upper quadrant pain COMPARISON: None. FINDINGS: Gallbladder: Normal with no cholelithiasis, wall thickening or focal tenderness. Bile ducts: CHD is normal diameter. No intrahepatic biliary dilatation. Liver: Mild diffuse decreased echogenicity without focal abnormality. Pancreas: Completely obscured by intestinal gas. Right kidney: Normal. IMPRESSION: No evidence of gallbladder disease. There is mild fatty infiltration of the liver. CHYNA RED MD Procedure: ? Upper GI endoscopy Indications: ? Epigastric abdominal pain, iron deficiency Providers: ? Boaz Kiran Jr., MD, Liz Hernandez RN, Linh Oviedo RN, Boaz ? PJudy Kiran Jr., MD Requesting Provider: Medicines: ? Monitored Anesthesia Care Complications: ? No immediate complications. Procedure: ? Pre-Anesthesia Assessment: ? - Prior to the procedure, a History and Physical was performed, and ? patient medications and allergies were reviewed. The patient is ? competent. The risks and benefits of the procedure and the sedation ? options and risks were discussed with the patient. All questions were ? answered and informed consent was obtained. Patient identification and ? proposed procedure were verified by the physician in the pre-procedure ? area. Mental Status Examination: alert and oriented. Respiratory ? Examination: clear to auscultation. CV Examination: normal. ASA Grade ? Assessment: II - A patient with mild systemic disease. After reviewing ? the risks and benefits, the patient was deemed in satisfactory condition ? to undergo the procedure. The anesthesia plan was to use monitored ? anesthesia care (MAC). Immediately prior to administration of ? medications, the patient was re-assessed for adequacy to receive ? sedatives. The heart rate, respiratory rate, oxygen saturations, blood ? pressure, adequacy of pulmonary ventilation, and response to care were ? monitored throughout the procedure. The physical status of the patient ? was re-assessed after the procedure. ? Informed consent was obtained after discussion of the procedure ? including its risks of perforation, bleeding, potential need for ? surgery, potential complications associated with conscious sedation, and ? possibility of an incomplete procedure or missed lesion. The endoscope ? was passed under direct vision. Throughout the procedure, the patient's ? blood pressure, pulse, and oxygen saturations were monitored ? continuously. The Endoscope was introduced through the mouth, and ? advanced to the jejunum. The upper GI endoscopy was accomplished without ? difficulty. The patient tolerated the procedure well. Findings: ? The esophagus was normal. ? Evidence of a gastric bypass was found. A gastric pouch with a normal ? size was found. The staple line appeared intact. The gastrojejunal ? anastomosis was characterized by healthy appearing mucosa. This was ? traversed. The anastomosis looked healthy even with scope retroflexed ? just below the opening, no ulcer seen. ? The examined jejunum was normal. Impression: ? - Normal esophagus. ? - Gastric bypass with a normal-sized pouch and intact staple line. ? Gastrojejunal anastomosis characterized by healthy appearing mucosa. ? - Normal examined jejunum. ? - No GI disease or cause of pain found. Recommendation: ? - Intravenous iron replacemen ? - Consider surgery opinion on incision scar area pain Procedure Code(s): ? --- Professional --- ? 03051, Esophagogastroduodenoscopy, flexible, transoral; diagnostic, ? including collection of specimen(s) by brushing or washing, when ? performed (separate procedure) Diagnosis Code(s): ? --- Professional --- ? Z98.84, Bariatric surgery status ? R10.13, Epigastric pain CPT copyright 2016 [employer]. All rights reserved. The codes documented in this report are preliminary and upon farm management adviser review may be revised to meet current compliance requirements. MD Boaz Carrion Jr., MD 10/03/2018 11:34:49 AM Number of Addenda: 0 Note Initiated On: 10/03/2018 11:02 AM ? [address] ? [place] [id number] Other Result Information Interface, Nmhcradordrslt In - 10/03/2018 11:34 AM CDT [facility] Patient Name: Alex Goodwin Procedure Date: 10/03/2018 11:02 AM Date of : 1975 Note Status: Finalized Attending MD: Boaz Kiran Jr., MD Procedure: Upper GI endoscopy Indications: Epigastric abdominal pain, iron deficiency Providers: Boaz Kiran Jr., MD, Liz Hernandez RN, Linh Oviedo RN, Boaz Kiran Jr., MD Requesting Provider: Medicines: Monitored Anesthesia Care Complications: No immediate complications. Procedure: Pre-Anesthesia Assessment: - Prior to the procedure, a History and Physical was performed, and patient medications and allergies were reviewed. The patient is competent. The risks and benefits of the procedure and the sedation options and risks were discussed with the patient. All questions were answered and informed consent was obtained. Patient identification and proposed procedure were verified by the physician in the pre-procedure area. Mental Status Examination: alert and oriented. Respiratory Examination: clear to auscultation. CV Examination: normal. ASA Grade Assessment: II - A patient with mild systemic disease. After reviewing the risks and benefits, the patient was deemed in satisfactory condition to undergo the procedure. The anesthesia plan was to use monitored anesthesia care (MAC). Immediately prior to administration of medications, the patient was re-assessed for adequacy to receive sedatives. The heart rate, respiratory rate, oxygen saturations, blood pressure, adequacy of pulmonary ventilation, and response to care were monitored throughout the procedure. The physical status of the patient was re-assessed after the procedure. Informed consent was obtained after discussion of the procedure including its risks of perforation, bleeding, potential need for surgery, potential complications associated with conscious sedation, and possibility of an incomplete procedure or missed lesion. The endoscope was passed under direct vision. Throughout the procedure, the patient's blood pressure, pulse, and oxygen saturations were monitored continuously. The Endoscope was introduced through the mouth, and advanced to the jejunum. The upper GI endoscopy was accomplished without difficulty. The patient tolerated the procedure well. Findings: The esophagus was normal. Evidence of a gastric bypass was found. A gastric pouch with a normal size was found. The staple line appeared intact. The gastrojejunal anastomosis was characterized by healthy appearing mucosa. This was traversed. The anastomosis looked healthy even with scope retroflexed just below the opening, no ulcer seen. The examined jejunum was normal. Impression: - Normal esophagus. - Gastric bypass with a normal-sized pouch and intact staple line. Gastrojejunal anastomosis characterized by healthy appearing mucosa. - Normal examined jejunum. - No GI disease or cause of pain found. Recommendation: - Intravenous iron replacemen - Consider surgery opinion on incision scar area pain Procedure Code(s): --- Professional --- 02760, Esophagogastroduodenoscopy, flexible, transoral; diagnostic, including collection of specimen(s) by brushing or washing, when performed (separate procedure) Diagnosis Code(s): --- Professional --- Z98.84, Bariatric surgery status R10.13, Epigastric pain CPT copyright 2016 [employer]. All rights reserved. The codes documented in this report are preliminary and upon farm management adviser review may be revised to meet current compliance requirements. MD Boaz Carrion Jr., MD 10/03/2018 11:34:49 AM Problem Noted Date Diagnosed Date S/P Laparoscopic Jarrett-en-Y g astric bypass 07/03/[address] Diaz Prince 12/18/2018 Altered mental status 07/03/2014 Alcohol dependency 04/29/2014 Alcohol intoxication 04/29/2014 Major depression, recurrent 09/26/2013 Overview: H/o overdose attempt (2006), hospitalized at [facility]'s 2009 Marital or partner relational problem 09/26/2013 Overview: H/o conflict with his Alcohol dependence in remission 09/26/2013 Overview: Reports being sober since 12/2009, attending AA Gout 09/26/2013 Diabetes mellitus type 2, noninsulin dependent 0 09/26/2013 HTN (hypertension) Immunizations Name Administration Dates Next Due Influenza, IIV3 (Age >=3 years) 03/11/2014 Family History Medical History Relation Name Comments Hyperlipidemia Father Hypertension Father Stroke Father Hypertension Mother Anxiety disorder Sister Depression Sister Obesity Sister Relation Name Status Comments Father Mother Sister Social History Tobacco Use Types Packs/Day Years Used Date Smoking Tobacco: Never Smokeless Tobacco: Never Alcohol Use Standard Drinks/Week Comments Yes 2 (1 standard drink = 0.6 oz pur e alcohol) once a month Sex and Gender Information Value Date Recorded Sex Assigned at Not on file Gender Identity Not on file Sexual Orientation Not on file Obstetrics History Last Filed Vital Signs Vital Sign Reading Time Taken Comments Blood Pressure 137/83 01/06/2019 10:28 AM CDT Pulse 88 01/06/2019 10:28 AM CDT Temperature 36.9 ??C (98.5 ??F) 06/06/2018 5:42 AM CS T Respiratory Rate 20 06/06/2018 5:42 AM CUTTING AND CREASING PRESS OPERATOR Oxygen Saturation 98% 06/06/2018 6:00 AM CUTTING AND CREASING PRESS OPERATOR Inhaled Oxygen Concentration - - Weight 101.6 kg (224 lb) 01/06/2019 10:28 AM CDT Height 174 cm (5' 8.5) 01/06/2019 10:28 AM CDT Body Mass Index 33.56 01/06/2019 10:28 AM CDT Plan of Treatment Health Maintenance Due Date Last Done Comments Tdap 1985 Depression screening for age 12+ 1986 HIV for age 15-65 1989 Tetanus booster 1994 Colonoscopy through age 75 2019 Lipids for age 45-75 2019 BMI (ht and wt on same day) for age 18+ 01/07/2020 01/06/2019, 02/04/2016 COVID-19 vaccine series (2022-24 season) 2023 Influenza for age 9-49 01/26/2024 03/11/2014 Hepatitis C screening for ag e 18-79 Completed 07/04/2005 Pneumococcal series for age 6-64 Aged Out No longer eligible b ased on patient's age to complete this topic Procedures Procedure Name Priority Date/Time Associated Diagnosis Comments EXPOSURE (BBF) ANTI HCV Timed 07/04/2005 2:15 AM CUTTING AND CREASING PRESS OPERATOR from Last 3 Months or Most Recently Relevant to Health Maintenance Results * PATIENT SOURCE ANTI HCV (07/04/2005 2:15 AM CUTTING AND CREASING PRESS OPERATOR) SOURCE ANTI HCV Non-reacti ve [facility] 07/04/2005 2:15 AM CUTTING AND CREASING PRESS OPERATOR 07/03/2005 10:00 PM CUTTING AND CREASING PRESS OPERATOR Narrative [facility] - 07/07/2005 1:49 PM CUTTING AND CREASING PRESS OPERATOR Testing Performed By [place], [place] Diaz Prince MD SEND OUTS [facility] [address] [place] [address] from Last 3 Months or Most Recently Relevant to Health Maintenance Advance Directives * Full Code (Latest Code Status on File) Date Activated Date Inactivated Comments 07/03/2014 4:23 AM 07/03/2014 5:24 PM * Full Code Date Activated Date Inactivated Comments 04/29/2014 11:19 AM 04/30/2014 4:13 PM * Full Code Date Activated Date Inactivated Comments 09/25/2013 9:03 PM 09/28/2013 6:39 PM Care Teams Dance Artist Relationship Specialty Start Date End Date [facility] [address] [place] [address] PCP - General 08/27/16 Yaya Park MD [address] [facility] [address] [place] [address] Consulting Physician Surgery - General 01/14/[address] [facility] [address] [place] [address] Registered Dietitian Gas Station Attendant 01/06/19 Monique Encinas NP [address] [place] [address] Consulting Physician Nurse Practitioner 01/06/19
--- OUTSIDE RECORDS SUMMARY | 2023-11-02 14:38 | XMS_ITS | Encounter Summary ---
Author Organization [facility] Address [address] [place] [address]. [place] [address] Care Team Providers Care Trade Recruiter Name Role Phone [facility] Unavailable Jennifer Pond MD Primary Care Provider [facility] Primary Care Pro vider Dany Hirsch Primary Care Provider Johnie Farmer Primary Care Provider JobОлег bergeron MD Unavailable [phone] Deven Schulte MD Unavailable [phone] Олег Kaiser MD Unavailable [phone] Loretta Elizalde PA-C Unavailable [phone] Олег Kaiser MD Unavailable +[phone] Loretta Elizalde PA-C Primary Care Provider Deven Schulte MD Unavailable [phone] Dong Craft MD Unavailable [phone] Dong Craft MD Unavailable [phone] Grazyna Damian CNP Unavailable [phone] Encounter Details Date Type Department Care Team (Late st Contact Info) Description 05/02/2015 MyC Medical Advice [place] [phone] Ruth Leigh LPN Social History Tobacco Use [...] Description 11/06/2023 4:00 PM CDT Virtual Visit [facility] [address] [place] [address] Loretta Elizalde PA-C [address] [place], [place] [phone] 12/11/2023 7:30 AM CDT Office Visit [facility] [address] [place] [phone] Loretta Elizalde PA-C [address] [place], [place] [id number] documented as of this encounter Visit Diagnoses Not on filedocumented in this encounter Additional Health Concerns Infection Onset Date Last Indicated Resolved Time Rule Out COVID-19 10/09/2019 10/09/2019 10/09/2019 9:36 PM CDT Rule Out COVID-19 11/20/2019 11/20/2019 11/21/2019 5:10 PM CDT Rule Out COVID-19 11/25/2019 11/25/2019 11/26/2019 4:41 PM CDT Rule Out COVID-19 04/18/2020 04/18/2020 04/18/2020 4:22 PM LEATHER LEVELER COVID-19 04/18/2020 04/18/2020 05/09/2020 11:4 0 PM LEATHER LEVELER documented as of this encounter Care Teams Trade Recruiter Relationship Specialty Start Date End Date Jennifer Pond MD [address] [facility] [place] [address] PCP - General Internal Medicine 11/08/14 08/26/16 [facility] [address] [place] [address] PCP - General 08/27/16 10/26/16 Dany Hirsch [address] [place] [address] PCP - General Family Practice 10/27/16 01/29/18 Johnie Farmer [address] [place] [address] PCP - General Family Practice 01/30/18 09/24/22 Loretta Elizalde PA-C [address] [place] [address] PCP - General Family Medicine 09/25/[address] [address] 06/14/11 08/26/16 Олег Kaiser MD [address] [place] [address] Urology 04/05/21 Deven Schulte MD [address] [place] [address] [id number] Assigned Surgical Provider 04/23/21 09/21/22 Олег Kaiser MD [address] [place] [address] [id number] Assigned Surgical Provider 04/16/21 04/22/21 Loretta Elizalde PA-C [address] [place] [address] Assigned PCP 09/22/22 Олег Kaiser MD [address] [place] [address] [id number] Assigned Surgical Provider 09/22/22 09/28/22 Deven Schulte MD [address] [place] [address] Assigned Surgical Provider 09/29/22 10/19/22 Dong Craft MD [address] [place] [address] [id number] MD [facility] 10/09/22 Dong Craft MD [address] [place] [address] Assigned Cancer Care Provider 11/24/22 05/24/23 Grazyna Damian CNP [address] [place] [address] [id number] Assigned Cancer Care Provider 05/25/23 documented as of this encounter
--- OUTSIDE RECORDS SUMMARY | 2023-11-02 14:38 | XMS_ITS | Encounter Summary ---
Author Organization [facility] Address [address], [place] [address] Care Team Providers Care Condenser Winder Name Role Phone Johnie Farmer MD Primary Care Provider [phone] Encounter Details Date Type Department Care Team (Late st Contact Info) Description 12/19/2011 Emergency Room External to [facility], Provider ANKLE PAIN Social History Tobacco Use Types Packs/Day [...] Progress Notes * [facility] Provider - 12/19/2011 12:00 AM CDT documented in this encounter Plan of Treatment Not on file documented as of this encounter Visit Diagnoses Not on filedocumented in this encounter Additional Health Concerns Infection Onset Date Last Indicated Resolved Time R/O COVID19 04/18/2020 04/18/2020 04/19/2020 5:02 PM TRAVEL PT COVID19 04/18/2020 04/18/2020 05/09/2020 3:17 AM TRAVEL PT documented as of this encounter Care Teams Condenser Winder Relationship Specialty [place] [address] [place] [address] PCP - General Family Practice 01/30/18 documented as of this encounter
--- OUTSIDE RECORDS SUMMARY | 2023-11-02 14:38 | XMS_ITS | Encounter Summary ---
Author Organization [facility] Address [address] [place] [address]. [place] [address] Care Team Providers Care Ball Assembler Name Role Phone [facility] Unavailable Jennifer Pond MD Primary Care Provider [facility] Primary Care Pro vider Dany Hirsch Primary Care Provider Johnie Farmer Primary Care Provider JobОлег bergeron MD Unavailable [phone] Deven Schulte MD Unavailable [phone] Олег Kaiser MD Unavailable [phone] Loretta Elizalde PA-C Unavailable [phone] Олег Kaiser MD Unavailable [phone] Loretta Elizalde PA-C Primary Care Provider Deven Schulte MD Unavailable [phone] Dong Craft MD Unavailable [phone] Dong Craft MD Unavailable [phone] Grazyna Damian CNP Unavailable [phone] Encounter Details Date Type Department Care Team (Late st Contact Info) Description 06/16/2015 MyC Medical Advice [place] [phone] Ruth Leigh LPN Social History Tobacco Use [...] Description 11/06/2023 4:00 PM CDT Virtual Visit [facility] [address] [place] [address] Loretta Elizalde PA-C [address] [place], [place] [phone] 12/11/2023 7:30 AM CDT [facility] [address] [place] [phone] Loretta Elizalde PA-C [address] [place], [place] [phone] documented as of this encounter Visit Diagnoses Not on filedocumented in this encounter Additional Health Concerns Infection Onset Date Last Indicated Resolved Time Rule Out COVID-19 10/09/2019 10/09/2019 10/09/2019 9:36 PM CDT Rule Out COVID-19 11/20/2019 11/20/2019 11/21/2019 5:10 PM CDT Rule Out COVID-19 11/25/2019 11/25/2019 11/26/2019 4:41 PM CDT Rule Out COVID-19 04/18/2020 04/18/2020 04/18/2020 4:22 PM LOSS PREVENTION LEAD COVID-19 04/18/2020 04/18/2020 05/09/2020 11:4 0 PM LOSS PREVENTION LEAD documented as of this encounter Care Teams Ball Assembler Relationship Specialty Start Date End Date Jennifer Pond MD [address] [facility] [place] [address] PCP - General Internal Medicine 11/08/14 08/26/16 [facility] [address] [place] [address] PCP - General 08/27/16 10/26/16 Dany Hirsch [address] [place] [address] PCP - General Family Practice 10/27/16 01/29/18 Johnie Farmer [address] [place] [address] PCP - General Family Practice 01/30/18 09/24/22 Loretta Elizalde PA-C [address] [place] [address] PCP - General Family Medicine 09/25/[address] [address] 06/14/11 08/26/16 Олег Kaiser MD [address] [place] [address] Urology 04/05/21 Deven Schulte MD [address] [place] [address] [phone] Assigned Surgical Provider 04/23/21 09/21/22 Олег Kaiser MD [address] [place] [address] [id number] Assigned Surgical Provider 04/16/21 04/22/21 Loretta Elizalde PA-C [address] [place] [address] Assigned PCP 09/22/22 Олег Kaiser MD [address] [place] [address] [phone] Assigned Surgical Provider 09/22/22 09/28/22 Deven Schulte MD [address] [place] [address] Assigned Surgical Provider 09/29/22 10/19/22 Dong Craft MD [address] [place] [address] [id number] MD [facility] 10/09/22 Dong Craft MD [address] [place] [address] Assigned Cancer Care Provider 11/24/22 05/24/23 Grazyna Damian CNP [address] [place] [address] [phone] Assigned Cancer Care Provider 05/25/23 documented as of this encounter
--- OUTSIDE RECORDS SUMMARY | 2023-11-02 14:38 | XMS_ITS | Clinical Summary ---
Author Organization [facility] Address [address] [place] [address] Care Team Providers Care Title Examiner Name Role Phone MarlenyJohnie MD Primary Care Provider [phone] Source Comments You are receiving this document as you are listed as the primary care provider,follow-up provider, or the patient has been referred to you for consultation.This is in compliance with the Medicare andMedicaid EHR Incentive Program,which states Providers who transition their patient to another setting of careor provider of care or refers their patient to another provider of care shouldprovide summary care record for each transition of care or referral. [address] Allergies Active Allergy Reactions Criticality Noted Date Comments Nsaids 06/09/2018 Medications Medication Sig Dispensed Refills Start Date End Date Status lancets (SOFTCLIX) Use 1 Each to test three times a day. Use as directed. Pharmacy dispense brand based on insurance. 300 Each 3 11/22/2016 Active ferrous sulfate 325 (65 Fe) MG tabletIndications:Lo w iron (HRC),S/P gastric bypass,Other iron deficiency anemia Take 1 Tablet by mouth daily. 90 Tablet 02/04/2018 Active metFORMIN (GLUCOPHAGE) 1000 MG tabletIndications:Un controlled type 2 diabetes mellitus without complication, without long-term current use of insulin Take 1 Tablet by mouth two times a day with meals. 180 Tablet 1 02/04/2018 Active amLODIPine (NORVASC) 10 MG tabletIndications:Hy pertension Take 1 Tablet by mouth daily at bedtime. TAKE 1 TABLET (10 MG) BY MOUTH DAILY Indications: High Blood Pressure Disorder 90 Tablet 1 03/02/2018 Active amitriptyline (ELAVIL) 25 MG tablet Take 1 Tablet by mouth every evening. 90 Tablet 3 05/19/2018 Active pantoprazole (PROTONIX) 20 MG tablet Take 1 Tablet by mouth daily for 30 days. 30 Tablet 08/15/2018 Active atorvastatin (LIPITOR) 40 MG tabletIndications:to lower cholesterol Take 1 Tablet by mouth every evening. Indications: to lower cholesterol 90 Tablet 3 12/19/2018 Active Continuous Blood Gluc Beverage Manager (FREESTYLE SHIRLENE 14 DAY READER) DEVIIndications:Unco ntrolled type 2 diabetes mellitus with hyperglycemia (HRC) Use as directed 1 Device 05/07/2019 Active Continuous Blood Gluc Sensor (FREESTYLE SHIRLENE 14 DAY SENSOR) MISCIndications:Unco ntrolled type 2 diabetes mellitus with hyperglycemia (HRC) Use as directed 6 Each 3 05/07/2019 Active fluticasone-vilanter ol (BREO ELLIPTA) 200-25 MCG/INH inhaler Inhale 1 Dose daily. Rinse mouth/gargle after use 1 Each 3 06/03/2019 Active glipiZIDE XL (GLUCOTROL XL) 5 MG 24 hour release tablet Take 1 Tablet by mouth daily. 90 Tablet 06/08/2019 Active FLUoxetine (PROZAC) 40 MG capsule Take 1 Capsule by mouth daily. 30 Capsule 1 06/08/2019 Active lisinopril (ZESTRIL) 30 MG tablet Take 1 Tablet by mouth daily. 90 Tablet 07/13/2019 Active ALBUterol sulfate HFA 108 (90 Base) MCG/ACT inhaler INHALE 1 TO 2 PUFFS BY MOUTH EVERY 4 HOURS NEEDED FOR WHEEZING 3 Each 1 03/02/2020 Active Active Problems Problem Noted Date Diagnosed Date Ambien accidental overdose 06/08/2019 Microcytic anemia 09/05/2017 BMI 35.0-35.9,adult 04/02/2017 Diabetes type 2, uncontrolled 03/11/2014 Generalized anxiety disorder 03/11/2014 Insomnia 03/11/2014 Overview: Insomnia, unspecified HTN (hypertension) 03/11/2014 Moderate persistent asthma 11/14/2011 Alcohol dependence 01/03/2010 Overview: Other and unspecified alcohol dependence, unspecified drinking behavior Gout 06/25/2008 S/P gastric bypass 06/25/2008 Resolved Problems Problem Noted Date Diagnosed Date Resolved Date Controlled substance agreement signed 05/19/2018 04/27/2019 Psychophysiological insomnia 09/06/2017 05/19/2018 Left sided abdominal pain 09/05/2017 Change in stool 09/05/2017 05/19/2018 Pain of left upper extremity 09/05/2017 05/19/2018 Superficial vein thrombosis 09/05/2017 06/09/2018 Overview: 08/2017, left basillic vein Superficial thrombophlebitis of left upper extremity 09/05/2017 05/19/2018 [facility] Overview: Background: Diagnosis: Episodic Mood Dis, Alcohol Dep, Adjustment Dis. Current situation: Patient in need of provider to evaluate and manage his medications and possible BH therapy. Providers outside of [facility]: none known of. Goals/Recommendations: Outpatient Behavioral Health Computer Systems AnalystLoom Overhauler Information: Sheri Chandler [facility] Action Plan: Assisted patient in scheduling 11/09/11 intake appointment with JELANI Momin at [facility] - patient didn't attend. Plan is to start with BH med mgt and then seek out BH therapy through [facility] so as to coordinate care. Hidradenitis suppurativa 07/12/2011 Knee pain 03/03/2011 05/19/2018 Vitamin D deficiency 05/16/2010 018 Hyperlipidemia with target LDL less than 100 0 04/27/2019 Overview: ICD 10 Immunizations Name Administration Dates Next Due Flu Vac (3+ yrs) 03/08/2012,02/23/2011, 0 H1n1 Miv Sanofi 3+ Yr, Preservative-free (Injected) 07/08/2009 HepB Adult (Engerix-B, 20+ y rs, 3 dose series) 04/11/2012,05/12/2010,02/09/2010 Influenza IIV4 (Quadrivalent ) 0.5mL (42270) 02/12/2018,04/02/2017,02/09/2016,2013 Influenza, Unspecified Formulation 03/15/2019 PPSV23 (Pneumovax) 07/18/2009 Tdap 07/18/2009 Family History Medical History Relation Name Comments Alcohol/Drug Abuse Father Cerebrovascular Disease Father Coronary Artery Disease Father 40s Diabetes, Type II Father Hyperlipidemia Father Hypertension Father Depression Mother and father Cataract Maternal Grandmother Bipolar Disorder Sister 2 Amblyopia/Strabismus Negative Family History Diabetes Negative Family History Glaucoma Negative Family History Macular Degeneration Negative Family History Retinal Detachment Negative Family History Relation Name Status Comments Father Alive Mother Alive Maternal Grandmother Sister 1 Alive Sister 2 Social History Tobacco Use Types Packs/Day Years Used Date Smoking Tobacco: Never Smokeless Tobacco: Never Tobacco Cessation:Counseling Given: No Alcohol Use Standard Drinks/Week Comments Yes 3 (1 standard drink = 0.6 oz pur e alcohol) occasional PHQ-2 Answer Date Recorded PHQ-2 Score 0 04/27/2019 Sex and Gender Information Value Date Recorded Sex Assigned at Not on file Gender Identity Not on file Sexual Orientation Not on file Last Filed Vital Signs Vital Sign Reading Time Taken Comments Blood Pressure 150/89 04/18/2020 8:08 AM CALENDERING MACHINE OPERATOR Pulse 110 04/18/2020 8:08 AM CALENDERING MACHINE OPERATOR Temperature 36.7 ??C (98 ??F) 04/18/2020 8:08 AM CALENDERING MACHINE OPERATOR Respiratory Rate 20 04/18/2020 8:08 AM CALENDERING MACHINE OPERATOR Oxygen Saturation 100% 04/18/2020 8:08 AM CALENDERING MACHINE OPERATOR Inhaled Oxygen Concentration - - Weight 105.7 kg (233 lb) 07/13/2019 4:53 PM CALENDERING MACHINE OPERATOR Height 174 cm (5' 8.5) 07/13/2019 4:53 PM CALENDERING MACHINE OPERATOR Body Mass Index 34.91 07/13/2019 4:53 PM CALENDERING MACHINE OPERATOR Plan of Treatment Health Maintenance Due Date Last Done Comments Hep C Screening (Preventive Services) 1974 PSA Screening Discussion 1974 HIV Screening (Preventive Services) 1990 Adult Preventive Visit 02/07/1992 Pneumococcal (2 - PCV) 07/18/2010 07/18/2009 DTaP/Tdap/Td (2 - Tdap) 07/18/2019 07/18/2009 Colonoscopy 12/12/2019 12/11/2017 (Completed) Diabetes: Foot Exam 12/20/2019 12/19/2018 ( Completed), 09/06/2017 (Completed), 08/26/2014 (Completed), Additional history exists Asthma ACT 04/27/2020 04/27/2019, 08/25, 04/02/2017, Additional history exists Diabetes: Urine Microalbumin 04/27/2020 04/27/2019, 02/12/2018, 11/08/2016, Additional history exists Diabetes: Eye Exam 05/26/2020 05/26/2019 (C ompleted), 03/11/2018, 11/23/2016 (Completed), Additional history exists Diabetes: Creatinine 07/26/2020 07/27/2019, 07/13/2019, 04/27/2019, Additional history exists Diabetes: HGBA1C 10/05/2021 04/07/2021, , 07/13/2019, Additional history exists COVID-19 Vaccine ( season) 2023 11/04/2020, 10/14/2020 Diabetes: Lipid Panel 02/12/2023 02/12/2018 , 11/07/2016, 02/09/2016, Additional history exists Influenza (Season Ended) 2024 019, 02/12/2018, 04/02/2017, Additional history exists Zoster/Shingles (1 of 2) 02/07/2024 HepB Completed 04/11/2012, 04/26, 02/09/2010 HepA Aged Out No longer eligi ble based on patient's age to complete this topic Hib Aged Out No longer eligi ble based on patient's age to complete this topic IPV (Polio) Aged Out No longer eligi ble based on patient's age to complete this topic MCV4 Aged Out No longer eligi ble based on patient's age to complete this topic Procedures Procedure Name Priority Date/Time Associated Diagnosis Comments CREATININE / GFR Routine 07/27/2019 5:06 PM CALENDERING MACHINE OPERATOR Preoperative examination HGB A1C Routine 07/13/2019 5:40 PM CALENDERING MACHINE OPERATOR Uncontrolled type 2 diabetes mellitus with hyperglycemia (HRC) ALBUMIN/CREAT RATIO Routine 04/27/2019 6 :26 PM CALENDERING MACHINE OPERATOR Uncontrolled type 2 diabetes mellitus with hyperglycemia (HRC) LIPID PANEL & DIRECT LDL (IF NEEDED) Routine 02/12/2018 4:56 PM CDT Uncontrolled type 2 diabetes mellitus without complication, 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RC) from Last 3 Months or Most Recently Relevant to Health Maintenance Results * Creatinine / GFR (07/27/2019 5:06 PM CALENDERING MACHINE OPERATOR) Creatinine 1.10 0.73 - 1.18 mg/dL 07/27/2019 8:51 PM CALENDERING MACHINE OPERATOR [facility] GFR, Estimated >60 >60 mL/min/1.7 3m2 07/27/2019 8:51 PM CALENDERING MACHINE OPERATOR [facility] GFR, Est If >60 >60 mL/min/1.7 3m2 07/27/2019 8:51 PM CALENDERING MACHINE OPERATOR [facility] Blood Venipuncture / Unknown 07/27/2019 5:06 PM CALENDERING MACHINE OPERATOR 07/27/2019 5:06 PM CALENDERING MACHINE OPERATOR Johnie Farmer MD LAB_1 [facility] [address] [place] [address], [facility] [phone] * (ABNORMAL) Hemoglobin A1C Glycosylated (07/13/2019 5:40 PM CALENDERING MACHINE OPERATOR) Hemoglobin A1C 7.1(H) <=5.6 % 07/14/2019 10:39 AM CALENDERING MACHINE OPERATOR [facility] Blood Venipuncture / Unknown 07/13/2019 5:40 PM CALENDERING MACHINE OPERATOR 07/13/2019 5:40 PM CALENDERING MACHINE OPERATOR Narrative [facility] - 07/14/2019 10:39 AM CALENDERING MACHINE OPERATOR For patients not previously diagnosed with diabetes: 5.7-6.4%: Increased risk for diabetes 6.5% and greater: Diagnostic for diabetes For patients diagnosed with diabetes: <8.0%: Goal of therapy for ages 18-75 Clinicians may recommend a higher or lower goal for specific individuals. Johnie Farmer MD LAB_1 Performing Organization Address City/State/[facility] Co de Phone Number [facility] [address] [place] [address], [facility] * (ABNORMAL) Microalbumin Urine Random (UMAR) (04/27/2019 6:26 PM CALENDERING MACHINE OPERATOR) Albumin, Urine, Random 56.7 mg/L 04/27/2019 9:21 PM CALENDERING MACHINE OPERATOR [facility] Creatinine, Urine, Random 150 >20 mg/dL 04/27/2019 9:21 PM CALENDERING MACHINE OPERATOR [facility] Albumin/Creati nine Ratio, Urine, Random 38(H) <30 mg/g 04/27/2019 9:21 PM CALENDERING MACHINE OPERATOR [facility] Urine,random 04/27/2019 6:26 PM CALENDERING MACHINE OPERATOR 04/27/2019 6:26 PM CALENDERING MACHINE OPERATOR Johnie Farmer MD LAB_1 Performing Organization Address [facility] de Phone Number [facility] [address] [place] [address] [phone] * Lipid Panel - LDLD If Trig High (02/12/2018 4:56 PM CDT) Cholesterol 141 0 - 199 mg/dL [facility] Triglycerides 135 4 - 149 mg/dL [facility] HDL Cholesterol 49 >39 mg/dL [facility] Cholesterol/HDL Ratio Screen 2.9 [facility] LDL Calculated 65 19 - 130 mg/dL [facility] Non HDL Chol, Calc 92 0 - 159 mg/dL [facility] Hours Fasting 5.0 [facility] 02/12/2018 4:56 PM CDT 02/12/2018 8:16 PM CDT Narrative [facility] - 02/12/2018 8:47 PM CDT Performed at [facility], [address] [place] [address] CLIA number [id number] Dany Hirsch MD LAB_1 Performing Organization Address [facility]/ZIP Co de Phone Number [facility] [address] [place] [address] from Last 3 Months or Most Recently Relevant to Health Maintenance Advance Directives * Full Code (Latest Code Status on File) Date Activated Date Inactivated Comments 02/28/2018 10:40 PM 03/01/2018 7:00 PM * Full Code Date Activated Date Inactivated Comments 10/27/2011 11:11 AM 10/30/2011 3:43 PM * Full Code Date Activated Date Inactivated Comments 01/03/2010 12:56 AM 01/04/2010 1:26 PM Care Teams Title Examiner Relationship Specialty [place] [address] [place] [address] PCP - General Family Practice 01/30/18
[2023-11-02 14:40] LABS: Basophils Absolute Auto 0.03 K/uL (0.00-0.30); Basophils Percent Auto 0.5 % (0.0-3.0); Hematocrit 39.1 % (37.0-53.0); Hemoglobin* 12.9 gm/dL (13.5-17.5); Immature Granulocytes Abs Auto 0.07 K/uL (0.00-0.30); Immature Granulocytes Pct Auto 1.1 %; Lymphocytes Absolute Auto 1.88 K/uL (0.90-2.90); Lymphocytes Percent Auto 28.6 % (20-44); Mean Corpuscular HGB Conc 33 gm/dL (32-36); Mean Corpuscular Hemoglobin 27 pg (26-34); Mean Corpuscular Volume 82 fL (80-100); Monocytes Percent Auto 6.4 % (0.0-11.0); Neutrophils Absolute Auto 3.97 K/uL (1.7-7.0); Neutrophils Percent Auto 60.4 % (42.0-72.0); Platelet Count* 227 K/uL (140-440); RDW Coefficient of Variation % 14.7 % (11.5-15.5); Red Blood Count 4.79 m/uL (4.30-5.90); White Blood Count* 6.57 K/uL (4.50-11.00)
[2023-11-02] MEDS: 0.9 % SODIUM CHLORIDE 1000 ml 1,000 ML IV (14:41)
[2023-11-02 14:46] LABS: Slide Review Reflex No
[2023-11-02 14:48] LABS: Albumin* 4.9 g/dL (3.3-5.0); Chloride* 105 mmol/L (96-114)
[2023-11-02 14:49] LABS: Potassium* 4.3 mmol/L (3.6-5.1); Sodium* 137 mmol/L (135-149)
[2023-11-02 14:50] LABS: Aspartate Amino Transferase* 31 U/L (12-35); Bilirubin Direct* 0.4 mg/dL (0.0-0.5); Bilirubin Total* 0.8 mg/dL (0.1-1.5); Total Protein* 7.7 g/dL (6.0-8.3)
[2023-11-02 14:51] LABS: Alanine Aminotransferase* 29 U/L (4-50); Alkaline Phosphatase* 80 U/L (40-150); Creatinine* 0.9 mg/dL (0.5-1.5); Est. Creatinine Clearance* 96.06; Estimated Glomerular Filt Rate 105 ml/min; Lipase* 189 U/L (23-300)
[2023-11-02 14:52] LABS: Anion Gap 14 mEq/L (7-15); Blood Urea Nitrogen* 11 mg/dL (5-24); Calcium* 9.1 mg/dL (8.4-10.6); Carbon Dioxide* 18 mmol/L (20-32); Glucose* 312 mg/dL (60-115)
[2023-11-02 14:55] LABS: C Reactive Protein* 0.7 mg/dL (0.5-1.0)
[2023-11-02] MEDS: MORPHINE 4 MG/ML INJ IVP (15:08)
--- NOTE | 2023-11-02 15:20 | ED.GENADULT ---
HPI - General Adult General Date Seen: 11/02/23 Chief complaint: Abdominal Pain Stated complaint: Left arm and left flank pain Time Seen by Provider: 11/02/23 13:59 Source: patient, RN notes reviewed and old records reviewed Mode of arrival: ambulatory Limitations: no limitations History of Present Illness HPI narrative: Patient is a 48-year-old male with a history of rotator cuff repair, diabetes, hypertension, kidney stones, who comes in with a 1 week history of left-sided flank pain. He presumed that this was related to a kidney stone but it seems to be getting worse. He also notes at some point over the past week he has developed swelling on the top of his left shoulder. Denies specific injury. He has not had fevers that he is aware of but has felt nauseated. No vomiting. No hematuria or dysuria. He has difficulty with range of motion of the shoulder due to pain. Has not noted any redness to the area. No chest pain or difficulty breathing. No significant cough. Denies tobacco or alcohol use. Related Data Home Medications ?Medication ?Instructions ?Recorded ?Confirmed albuterol sulfate 90 mcg/actuation inhalation 11/02/23 aerosol inhaler fluoxetine 40 mg capsule 40 mg PO DAILY 11/02/23 11/02/23 lisinopril .ROUTE 11/02/23 metformin 500 mg tablet,extended 1,000 mg PO BID 11/02/23 11/02/23 release 24 hr rosuvastatin 20 mg tablet 20 mg PO DAILY 11/02/23 11/02/23 Allergies Allergy/AdvReac Type Severity Reaction Status Date / Time No Known Drug Allergies Allergy Verified 11/02/23 14:04 Review of Systems Status of ROS: Reports: 10 or more systems reviewed and unremarkable except as noted in History and below [facility] Social History Smoking Status: Unknown if ever smoked How often do you have a drink containing alcohol: monthly or less How often do you have six or more drinks on one occasion: Never AUDIT-C Alcohol total score: 1 Non-prescribed substance use: denies use Exam Narrative: Exam Narrative: Vital signs as noted above. In general, an alert, nontoxic male. Looks somewhat uncomfortable, little tachypneic. Head: Normocephalic, atraumatic. Eyes: Pupils are equal reactive. Extraocular movements are full. Conjunctivae are normal. ENT: Mucous membranes are moist. Neck: Supple without lymphadenopathy. Heart: Tachycardic and regular without significant murmur. Lungs: Clear bilaterally. No increased work of breathing, crackles or wheezes. Does have some CVA tenderness on the left but also has tenderness to gentle palpation of the musculature in that spot. There is no erythema, swelling, crepitus or subcu air. Abdomen: Protuberant and soft, nontender to palpation. Extremities: He holds the left arm somewhat close to his body. Active range of motion limited secondary to pain. He has the protuberance over the top of the shoulder which is fluctuant but not erythematous or warm. Neurologic: Patient is alert and oriented to person and place. Speech is fluent. Face is symmetric. Moves all extremities equally. Affect: Normal. Skin: Warm and dry. Well perfused. Const: Vital Signs, click to edit/add: Vital Signs - 24 hr 11/02/23 14:01 11/02/23 15:28 11/02/23 16:30 Temperature 97.2 F L Pulse Rate [Pulse Oximeter] 115 H 91 88 Respiratory Rate 24 16 Blood Pressure [Ri ght Upper Arm] 182/109 H 199/116 H 192/110 H Pulse Oximetry 97 98 98 Oxygen Delivery Me thod Room Air Room Air Room Air Documenting provider has reviewed patient's vital signs: yes Course Course ED Course: We placed an IV here, he had Tylenol and then also had 4 mg of morphine, feels considerably better. He is no longer tachypneic, looks more comfortable. Lab work was notable for a normal white blood cell count of 6.6 and an unremarkable diff. Hemoglobin slightly low at 12.9. Initial lactate was 4.7. Metabolic panel was notable for a CO2 of 18, electrolytes normal, renal function normal. Blood sugar was elevated at 312. Lactate after fluids was 2.9. I did a venous gas at that time as well and this showed a normal pH of 7.35, pCO2 48 and a bicarb of 27. LFTs normal, CRP of 0.7, lipase of 189. Urinalysis showed trace ketones, trace glucose, 0-2 red cells and 0-2 white cells. He went on to have CT scan of the chest abdomen and pelvis. It was unclear to me whether the shoulder symptoms might be related to something going on in the chest, and patient felt that flank pain might be related to kidney stone. By my review of the CT scan, there are no significant findings in the chest, he has multiple stones in both kidneys but I did not see evidence of ureteral stone. Final radiology review as follows:FINDINGS: Limited evaluation without the use of intravenous contrast. CHEST: Lower neck: Visualized thyroid appears unremarkable. Cardiovascular: Normal heart size. No significant atherosclerotic calcifications of the thoracic aorta. Normal caliber of the thoracic aorta and pulmonary artery. No CT evidence of acute aortic injury. No significant coronary arterial calcifications. Mediastinum and lymph nodes: No pathologic lymphadenopathy by size criteria. Lungs: There is Latoya lymphatic nodularity, most pronounced involving the bilateral lower lobes, for example abutting the right major fissure as well as several irregularly nodular interlobular septal thickening (2:99). No focal consolidation. No suspicious pulmonary masses. Pleura: No pleural effusions or pneumothorax. Chest wall: No axillary lymphadenopathy. Unremarkable. Bones: No acute osseous abnormalities. No acute displaced rib fractures. Mild degeneration of the glenohumeral joints bilaterally. ABDOMEN AND PELVIS: Liver: Unremarkable. Gallbladder: Unremarkable. Biliary: No biliary ductal dilatation. Pancreas: Within normal limits. Spleen: Unremarkable. Adrenals: Unremarkable. Kidneys/ureters/bladder: Kidneys are normal in size. No obstructive urinary calculus or hydronephrosis. There are numerous nonobstructive calculi within the renal collecting system bilaterally. No obstructive uropathy. The bladder is within normal limits. Limited evaluation for masses within the kidneys, ureters or bladder without the use of intravenous contrast. 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 No bowel wall thickening or bowel obstruction. Normal appendix. No significant colonic diverticulosis. Mild colonic stool burden. Small hiatal hernia. Pelvic structures: Unremarkable prostate. Vascular: Minimal atherosclerotic calcifications of the abdominal aorta. No aneurysm. Peritoneum: No free fluid or pneumoperitoneum. No drainable fluid collections. Lymph nodes: No pathologic lymphadenopathy by size criteria. Abdominal wall/soft tissues: Unremarkable. Bones: No acute osseous abnormalities. Degenerative changes of the hip joints bilaterally. IMPRESSION: 1. No acute intrathoracic pathology. Mild degeneration of the glenohumeral joints bilaterally. 2. No acute abdominopelvic pathology. No hydronephrosis or obstructing urinary calculus. 3. Irregularly nodular interlobular septal thickening and perilymphatic nodularity predominantly involving the bilateral lower lobes. These findings can be seen the setting of underlying pulmonary sarcoidosis. No significant pulmonary fibrosis or intrathoracic lymphadenopathy. 4. Status post gastric bypass surgery. No bowel obstruction. In the absence of any findings on CT, would suspect that his flank pain is more muscular. He does not have pleuritic pain or shortness of breath, was mildly tachycardic on arrival but that has resolved, O2 sats are 98% on room air. I do not think this represents pulmonary embolism. With regard to the shoulder, he had an ultrasound which confirms that that is a cystic structure. I reviewed this with Dr. Price, on-call for Orthopedics. He did feel that it would be reasonable to put a needle into that and pull off some fluid to make sure was not purulent to help rule out the possibility of a septic joint. Discussed this with the patient and he agreed to proceed. Procedure note: The skin over the shoulder was anesthetized with a small amount of lidocaine, cleaned with chlorhexidine and then I used an 18 gauge needle to pull about a mL of viscous translucent yellow fluid. He tolerated this well. Band-Aid applied. No apparent complication. He declined a sling. He is able to move his shoulder better now with morphine on board. Have reviewed all of his findings with him. I would like him to follow up with his primary doctor in the next week or 2 for recheck and to make sure his blood pressure is more well controlled at that time as he has remained significantly hypertensive here. He has type 2 diabetes, blood sugars somewhat elevated here, but venous gas does not show acidosis. CO2 may have been low secondary to the fact that he was hyperventilating a bit when he got here. Joint fluid was sent for cell counts and culture, per Dr. Price his recommendations I have made a follow-up appointment for him with Dr. Reynoso. Discussed reasons to return such as fevers, chills, severe uncontrolled pain, difficulty breathing, vomiting, or other worsening. Vital Signs Vital signs: Initial Vital Signs Temperature 97.2 F L 11/02/23 14:01 Temperature Source Temporal Artery Scan 11/02/23 14:01 Pulse Rate 115 H 11/02/23 14:01 Respiratory Rate 24 11/02/23 14:01 Blood Pressure 182/109 H 11/02/23 14:01 Blood Pressure Mean 133 H 11/02/23 14:01 Blood Pressure Position Sitting 11/02/23 14:01 Pulse Oximetry 97 11/02/23 14:01 Oxygen Delivery Method Room Air 11/02/23 14:01 Vital Signs Temperature 97.2 F L 11/02/23 14:01 Pulse Rate 115 H 11/02/23 14:01 Respiratory Rate 24 11/02/23 14:01 Blood Pressure 182/109 H 11/02/23 14:01 Pulse Oximetry 97 11/02/23 14:01 Oxygen Delivery Method Room Air 11/02/23 14:01 Temperature 97.2 F L 11/02/23 14:01 Pulse Rate 88 11/02/23 16:30 Respiratory Rate 16 11/02/23 15:28 Blood Pressure 192/110 H 11/02/23 16:30 Pulse Oximetry 98 11/02/23 16:30 Oxygen Delivery Method Room Air 11/02/23 16:30 Medications Administered Medications: Discontinued Medications Generic Name Dose Route Start Last Admin Trade Name Freq PRN Reason Stop Dose Admin Sodium Chloride 1,000 mls @ 1,000 mls/hr 11/02/23 14:30 11/02/23 16:08 0.9 % Sodium Chloride 1000 Ml IV 11/02/23 15:29 Infused .Q1H MIRTHA Infusion Morphine Sulfate 4 mg 11/02/23 15:00 11/02/23 15:08 Morphine 4 Mg/Ml Inj IVP 11/02/23 15:01 4 mg ONCE ONE Administration Medical Decision Making Lab Data Labs: Lab Results 11/02/23 11/02/23 11/02/23 Range/Units 14:20 15:50 16:20 WBC 6.57 (4.50-11.00) K/uL RBC 4.79 (4.30-5.90) m/uL Hgb 12.9 L (13.5-17.5) gm/dL Hct 39.1 (37.0-53.0) % MCV 82 (80-100) fL MCH 27 (26-34) pg MCHC 33 (32-36) gm/dL RDW Coeff of Kim 14.7 (11.5-15.5) % Plt Count 227 (140-440) K/uL Neut % (Auto) 60.4 (42.0-72.0) % Lymph % (Auto) 28.6 (20-44) % [place] % (Auto) 6.4 (0.0-11.0) % Eos % (Auto) 3.0 (0.0-7.0) % Baso % (Auto) 0.5 (0.0-3.0) % Neut # (Auto) 3.97 (1.7-7.0) K/uL Lymph # (Auto) 1.88 (0.90-2.90) K/uL [place] # (Auto) 0.40 (0.00-0.90) K/UL Eos # (Auto) 0.20 (0.00-0.50) K/uL Baso # (Auto) 0.03 (0.00-0.30) K/uL Abs Immat Gran (auto) 0.07 (0.00-0.30) K/uL Imm/Tot Granulo (auto) 1.1 % VBG pH 7.349 (7.32-7.43) VBG pCO2 48 (40-50) mmHG VBG pO2 < 30.1 (25-47) mmHG VBG HCO3 27 (21-28) mmol/L Sodium 137 (135-149) mmol/L Potassium 4.3 (3.6-5.1) mmol/L Chloride 105 (96-114) mmol/L Carbon Dioxide 18 L (20-32) mmol/L Anion Gap 14 (7-15) mEq/L BUN 11 (5-24) mg/dL Creatinine 0.9 (0.5-1.5) mg/dL Estimated Creat Clear 96.06 Estimated GFR 105 ml/min Glucose 312 H (60-115) mg/dL Lactate 4.7 H* 2.9 H (0.5-1.9) mmol/L Calcium 9.1 (8.4-10.6) mg/dL Total Bilirubin 0.8 (0.1-1.5) mg/dL Direct Bilirubin 0.4 (0.0-0.5) mg/dL AST 31 (12-35) U/L ALT 29 (4-50) U/L Alkaline Phosphatase 80 (40-150) U/L C-Reactive Protein 0.7 (0.5-1.0) mg/dL Total Protein 7.7 (6.0-8.3) g/dL Albumin 4.9 (3.3-5.0) g/dL Lipase 189 (23-300) U/L Urine Color Yellow (Yellow) Urine Appearance Clear (Clear) Urine pH 5.5 (5.0-8.5) Ur Specific [place] >= 1.030 (1.000-1.030) Urine Protein 1+ A (Negative) Urine Glucose (UA) Trace A (Negative) Urine Ketones Trace A (Negative) Urine Blood Negative (Negative) Urine Nitrite Negative (Negative) Urine Bilirubin Negative (Negative) Urine Urobilinogen 1.0 (0.2-1.0) Ur Leukocyte Esterase Negative (Negative) Urine RBC 0-2 (0-2) Urine WBC 0-2 (0-5) Ur Squamous Epith Cells None (None-Few) Calcium Oxalate Crystal Many A (None) Other Sediment Many A (None) Urine Bacteria Few A (None) Discharge Plan Discharge Clinical Impression: Left shoulder pain, Back pain, Elevated blood pressure reading with diagnosis of hypertension Patient Disposition: Home, Self-Care Condition: Improved Instructions: Back Pain (ED), Shoulder Pain (ED) Additional Instructions: Tylenol 1000 mg 3 times daily. Oxycodone if needed for more severe pain. You can use ice on your shoulder if that is helpful. If you have severe uncontrolled pain, new symptoms such as redness, fever, chills, vomiting, shortness of breath or other significant worsening, return to the emergency department for re-evaluation. Otherwise, follow up with Orthopedics as scheduled. Your blood pressure has been running high today, would recommend that you follow-up with your primary doctor for recheck in the next week or so to make sure that your medications do not need to be adjusted. Prescriptions: No Action fluoxetine 40 mg capsule 40 mg PO DAILY albuterol sulfate 90 mcg/actuation HFA aerosol inhaler inhalation metformin 500 mg tablet extended release 24 hr 1,000 mg PO BID lisinopril .ROUTE rosuvastatin 20 mg tablet 20 mg PO DAILY Follow Up/Referrals: Provider,Not a Local [Primary Care Provider] - Stand Alone Forms: [employer] Info Instructions
[2023-11-02 15:28] VITALS: BP 199/116; PULSE 91; RESP 16; O2SAT 98
--- NOTE | 2023-11-02 15:56 | CRLHL7_ITS ---
For Patients: As a result of the Century Cures Act, medical imaging exams and procedure reports are released immediately into your electronic medical record. You may view this report before your referring provider. If you have questions, please contact your health care provider. INDICATION: Swelling, pain, top of left shoulder COMPARISON: None. TECHNIQUE: Shelley-scale, color doppler ultrasound of the left shoulder soft tissues. FINDINGS: Ema of concern is along the top of the left shoulder. There is a bilobed well-circumscribed fluid collection that measures 5.4 x 3.2 x 1.6 centimeters. There is some internal debris and a few peripheral septations. No internal vascularity or solid nodular components. Relationship with the underlying osseous structures is not entirely clear. Is definitely very deep and appears to be adjacent to the acromioclavicular joint. May communicate with the acromioclavicular joint. IMPRESSION: Large bursa in the left shoulder. Dictated by Yuli Pelayo MD @ 11/02/2023 4:46:02 PM (Electronically Signed)
[2023-11-02 15:58] LABS: Appearance Urine Clear (Clear); Bilirubin Urine Negative (Negative); Blood Urine Negative (Negative); Color Urine Yellow (Yellow); Glucose Urine Trace (Negative); Ketones Urine Trace (Negative); Leukocyte Esterase Urine Negative (Negative); Nitrite Urine Negative (Negative); Protein Urine 1+ (Negative); Specific Gravity Urine >= 1.030 (1.000-1.030); pH Urine 5.5 (5.0-8.5)
[2023-11-02 16:14] LABS: Bacteria Urine Few; Other Sediment Urine Many; RBC Urine 0-2 (0-2); WBC Urine 0-2 (0-5)
[2023-11-02 16:15] LABS: Calcium Oxalate Crystals Urine Many
[2023-11-02 16:30] VITALS: BP 192/110; PULSE 88; O2SAT 98
--- NOTE | 2023-11-02 16:33 | CRLHL7_ITS ---
For Patients: As a result of the Cures Act, medical imaging exams and procedure reports are released immediately into your electronic medical record. You may view this report before your referring provider. If you have questions, please contact your health care provider. Indication: SWELLING TOP OF LEFT SHOULDER. Technique: Left shoulder, 2 views. Comparison: None. Findings: Bones: Alignment is normal. No fractures or bone lesions. Joint spaces: Mild degenerative changes in the left shoulder.. Soft tissues: Soft tissue swelling overlying the distal clavicle. No underlying definite lesion identified.. Dictated by Harpreet Minor MD @ 11/02/2023 5:18:38 PM (Electronically Signed)
[2023-11-02 16:34] LABS: HCO3 VBG 27 mmol/L (21-28); Lactate Sepsis 2 Hour 2.9 mmol/L (0.5-1.9); PCO2 VBG 48 mmHG (40-50); PO2 VBG < 30.1 mmHG (25-47); pH VBG 7.349 (7.32-7.43)
== END 2023-11-02 17:34 | disposition home or self-care (01) ==
PROVIDERS: Emergency Provider Emergency Medicine
DX: M25.512 Pain in left shoulder (principal); M54.9 Dorsalgia, unspecified; I10 Essential (primary) hypertension
CPT/HCPCS: 20610; 36415; 71250; 73030; 74176; 76882; 80048; 80076; 81001; 82803; 83605; 83690; 85025; 86140; 87070; 87086; 89051; 96374; 99284; 99285; J2270; J7030

== ENCOUNTER 2023-11-07 10:52 | Outpatient (CLI) | payer OTHER, SELFPAY ==
--- OUTSIDE RECORDS SUMMARY | 2023-11-07 10:56 | XMS_ITS | Clinical Summary ---
Author Organization [place] Address [address] [facility] [place] [address] Care Team Providers Care Abap Developer Name Role Phone Олег Kaiser MD Unavailable [phone] Loretta Elizalde PA-C Unavailable [phone] Loretta Elizalde PA-C Primary Care Provider [phone] Dong Craft MD Unavailable [phone] Grazyna Damian CNP Unavailable [phone] Allergies Active Allergy Reactions Criticality Noted Date Comments Nsaids 06/09/2018 Gastric Bypass Medications Medication Sig Dispensed Refills Start Date End Date Status pantoprazole (PROTONIX) 20 MG EC tablet Take 20 mg by mouth daily Active Continuous Glucose Sensor (FREESTYLE SHIRLENE 3 SENSOR) MISCIndications:Ty pe 2 diabetes mellitus with diabetic nephropathy, 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) 1 each every 14 days Use 1 sensor every 14 days. Use to read blood sugars per insulation helper's instructions. 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 Then if tolerated, take 2 tabs twice daily with meals. 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) Take 1 capsule (20 mg) by mouth daily Start AFTER taking 10 mg daily for 1 week 30 capsule 1 11/06/2023 Active amLODIPine (NORVASC) 5 MG tabletIndications: Hypertension goal BP (blood pressure) < 140/90 Take 1 tablet (5 mg) by mouth daily 30 tablet 1 11/06/2023 Active olmesartan (BENICAR) 20 MG tabletIndications: Hypertension goal BP (blood pressure) < 140/90 Take 1 tablet (20 mg) by mouth daily 30 tablet 1 11/06/2023 Active rosuvastatin (CRESTOR) 20 MG tabletIndications: Hyperlipidemia LDL goal <70 Take 1 tablet (20 mg) by mouth daily 30 tablet 1 11/06/2023 Active albuterol (PROAIR HFA/PROVENTIL HFA/VENTOLIN HFA) 108 (90 Base) MCG/ACT inhalerIndications :Moderate persistent asthma without complication Inhale 1-2 puffs into the lungs every 4 hours as needed for shortness of breath or wheezing 18 g 11 09/11/2022 4 Discontinued (Reorder (No AVS)) amLODIPine (NORVASC) 5 MG tabletIndications: Hypertension goal BP (blood pressure) < 140/90 Take 1 tablet (5 mg) by mouth daily 30 tablet 1 09/25/2022 4 Discontinued (Reorder (No AVS)) fluticasone-vilant pepper (BREO ELLIPTA) 200-25 MCG/ACT inhaler Inhale 1 puff into the lungs daily as needed 4 Discontinued (Reorder (No AVS)) nortriptyline (PAMELOR) 10 MG capsule Take 10 mg by mouth At Bedtime 4 Discontinued (Med Rec(No AVS / No eCancel)) olmesartan (BENICAR) 20 MG tabletIndications: Hypertension goal BP (blood pressure) < 140/90 TAKE 1 TABLET BY MOUTH EVERY DAY 30 tablet 02/01/2023 4 Discontinued (Reorder (No AVS)) metFORMIN (GLUCOPHAGE XR) 500 MG 24 hr tabletIndications: Type 2 diabetes mellitus with diabetic nephropathy, 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 NEEDS VISIT FOR FURTHER REFILLS 120 tablet 04/19/2023 4 Discontinued (Reorder (No AVS)) rosuvastatin (CRESTOR) 20 MG tabletIndications: Hyperlipidemia LDL goal <70 TAKE 1 TABLET BY MOUTH EVERY DAY 30 tablet 04/19/2023 4 Discontinued (Reorder (No AVS)) FLUoxetine (PROZAC) 40 MG capsuleIndications :Recurrent major depressive disorder, in partial remission (H24) TAKE 1 CAPSULE BY MOUTH EVERY DAY 30 capsule 04/19/2023 4 Discontinued (Med Rec(No AVS / No eCancel)) albuterol (PROAIR HFA/PROVENTIL HFA/VENTOLIN HFA) 108 (90 Base) MCG/ACT inhalerIndications :Moderate persistent asthma without complication Inhale 1-2 puffs into the lungs every 4 hours as needed for shortness of breath or wheezing 18 g 10/31/2023 4 Discontinued (Reorder (No AVS)) Continuous Glucose Hand Screen Printer (FREESTYLE SHIRLENE 3 READER) DEVIIndications:Ty pe 2 diabetes mellitus with diabetic nephropathy, 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) 1 each once for 1 dose Use to read blood sugars per insulation helper's instructions. 1 each 11/06/2023 4 Active Problems Patient Care Coordination No te Formatting of this note migh t be different from the original. EMERGENCY CARE PLAN ACUTE CARE PLAN FOR THE FOLLOWING CONDITIONS: Chronic abdominal pain BRIEF HISTORY OF CONDITIONS: He has history of patricia-en-y gastric bypass surgery in 2005. Has been seen in emergency departments frequently in [id number] for epigastric abdominal pain. Has chronic pain of 7/10 noted on December 2018 [facility] admission. He has had significant workup for this pain throughout this time. Patient has had multiple gallbladder US and CT abdomen/pelvis during this time that have been unremarkable. He had EGD in September 2018 through [facility] that was normal. He saw general surgery HAM FACER through [facility] on 01/06/19 that thought some of pain [...] care provider CONTACT INFORMATION FOR PMD OR GROUND CREW CHIEF: Johnie Farmer MD [phone] PAIN CONTRACT CLINIC/PRESCRIBER: N/A RESTRICTED STATUS IF [...] Overview: H/o overdose attempt (2006), hospitalized at [facility]'s 2010 Vitamin D deficiency 05/16/2010 Acute gout of right knee, unspecified cause 05/29 S/P gastric bypass 06/25/2008 09/11/2022 Overview: ~2001, [facility], Dr Zhou? 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) (Primary Dx); Moderate persistent asthma without complication; Type 2 diabetes mellitus with diabetic nephropathy, 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); Hypertension goal BP (blood pressure) < 140/90; Hyperlipidemia LDL goal <70 10/30/2023 [facility] [address] [place] [address] Loretta Elizalde PA-C Refill Request (FLUoxetine (PROZAC) 40 MG capsule and albuterol (PROAIR HFA/PROVENTIL HFA/VENTOLIN HFA) 108 (90 Base) MCG/ACT inhaler) 08/19/2023 MyC Medical Advice [facility] Mar[facility] [address] [address] Eleanor Schwartz from Last 3 Months Immunizations Name Administration Dates Next Due COVID-19 12+ (2022-) (Pfizer) 03/28/2023 COVID-19 MONOVALENT 12+ (Pfizer) 11/04/2020,09/25 Flu, Unspecified 03/15/2019 [id number] Novel Flu P-free 07/08/2009 HepB 04/11/2012,05/12/2010,02/09/2010 Hepatitis [...] rare PHQ-2 Answer Date Recorded PHQ-2 Score 4 11/06/2023 Adolescent Education Answer Date Record ed Getting School Help Needed Not on file 02/16 Sex and Gender Information Value Date Recorded Sex Assigned at Not on file Gender Identity Not on file Sexual Orientation Not on file Last Filed Vital Signs Vital Sign Reading Time Taken Comments Blood Pressure 153/95 05/14/2023 12:14 PM ENTEROSTOMAL NURSE Pulse 89 05/14/2023 12:14 PM ENTEROSTOMAL NURSE Temperature 36.4 ??C (97.6 ??F) 05/14/2023 12:[address] Respiratory Rate 18 05/14/2023 12:14 PM ENTEROSTOMAL NURSE Oxygen Saturation 98% 05/14/2023 12:14 PM ENTEROSTOMAL NURSE Inhaled Oxygen Concentration - - Weight 99.3 kg (219 lb) 05/14/2023 12:14 PM ENTEROSTOMAL NURSE Height 175.3 cm (5' 9) 10/16/2022 1:50 PM CDT Body Mass Index 32.34 10/16/2022 1:50 PM CDT Plan of Treatment Upcoming Encounters Date Type Department Care Team (Late st Contact Info) Description 12/11/2023 7:30 AM CDT Office Visit [facility] [address] [place] [address] Loertta Elizalde PA-C [address] [place] [address] Health Maintenance Due Date Last Done Comments CT COLONOGRAPHY 1974 EYE EXAM 1974 FLEX SIG 1974 sDNA (Cologuard) 1974 FIT 06/23/2020 06/23/2019 A1C 03/13/2023 09/11/2022, 03/27, 04/18/2020, Additional history exists ASTHMA CONTROL TEST 03/13/2023 09/11/2022 ANNUAL REVIEW OF HM ORDERS 09/12/2023 09/11/2022 ASTHMA ACTION PLAN 09/12/2023 09/11/2022, 0 09/11/2022, 09/11/2022, Additional history exists DIABETIC FOOT EXAM 09/12/2023 09/11/2022, 0 09/11/2022, 09/22/2013 LIPID 09/12/2023 09/11/2022, 09/22/2013 YEARLY PREVENTIVE VISIT 09/12/2023 09/11/2022 MICROALBUMIN 09/26/2023 09/25/2022, 10/25, 09/22/2013 BMP 10/05/2023 10/04/2022, 09/24, 10/02/2022, Additional history exists ZOSTER IMMUNIZATION (1 of 2) 02/07/2024 PHQ-9 05/07/2024 11/06/2023, 08/25, 11/08/2014, Additional history exists ADVANCE CARE PLANNING 09/12/2027 09/11/2022 , 09/11/2022, [...] my appointments. Medical Devices Implanted Type Area Guard Entrance Registrar Device Identifier Shelf Expiration Date Model / Serial / Lot Stent Ureteral Polaris Ultra [id number] - [id number] Implanted:Qty: 1 on 04/08/2021 by Олег Kaiser MD at [facility] Stent Right: Abdomen [employer] 01/06/2024 [id number] / / [id number] Procedures Procedure Name Priority Date/Time Associated Diagnosis [...] BLOOD STOOL STAT 06/23/2019 9: 59 AM ENTEROSTOMAL NURSE ASTHMA ACTION PLAN Routine 10/13/2015 9: 27 [...] MD LAB - BLOOD ORDER RIMMA LABORATORY [facility] Acute Care Lab [address] Lab (1st floor, no room number) [place] [address], [facility] [phone] * COLONOSCOPY (10/03/2022 12:08 PM CDT) [facility] Patient Name: Alex ??Salter ?Procedure Date: [...] continuously. The ?Olympus Adult Colonoscope, Model # [id number], ?Endora # 226, SN # [id number] was introduced through ?the anus and advanced [...] Note Initiated On: 10/03/2022 12:08 PM MRN: ?[id number] Procedure Date: ? 10/03/2022 12:08:54 PM Scope Withdrawal Time: 0 hours 6 minutes 14 seconds Total Procedure Duration: 0 hours 21 minutes 40 seconds Estimated Blood Loss: ? Scope In: 1:16:52 PM Scope Out: 1:38:32 PM RADIOLOGY RESULTS 10/03/2022 12:0 8 PM CDT Jd Rhoades MD PROCEDURES RADIOLOGY RESULTS * (ABNORMAL) Albumin Random Urine Quantitative with Creat Ratio (09/25/2022 3:40 PM CDT) Pathologist [facility] Creatinine Urine mg/dL 212.0 mg/dL 09/25/2022 10:01 [...] control, and institution of therapy with an trekabrlpuo-mzrzfnjswp-yrzapk (ABNER) inhibitor (if the patient can tolerate it). ?? Urine URINE SPECIMEN / Unknown Non-blood Collection / Unknown 09/25/2022 3:40 PM CDT 09/25/2022 3:41 PM CDT Loretta Elizalde PA-C LAB - URINE ORDERAB LES UU LABORATORY [facility] [address] [facility], [address] [id number], [facility] [phone] * HIV Antigen Antibody Combo (09/11/2022 8:48 AM CDT) HIV Antigen Antibody Combo Nonreactive Nonreactive 09/11/2022 5:57 PM CDT SPECIALTY CORE/PROT/EN DO Comment:HIV-1 p24 Ag & HIV-1 /HIV-2 Ab Not Detected Blood BLOOD SPECIMEN / Unknown Venipuncture / Unknown 09/11/2022 8:48 AM CDT 09/11/2022 8:48 AM CDT Loretta Elizalde PA-C LAB - BLOOD ORDERAB LES SPECIALTY CORE/PROT/ENDO Specialty Core/Prot/Endo [address] [facility], Room [address] [phone] * Hepatitis C Screen Reflex to HCV [...] established for newborns, infants, and children. Loretta HERNANDEZC LAB - BLOOD ORDERAB LES UM SPECIALTY CORE/PROT/ENDO UM Specialty Core/Prot/Endo [address] [facility], Room [address] [place] [address] * (ABNORMAL) Lipid panel reflex to direct [...] LAB - BLOOD ORDERAB LES UU LABORATORY [facility] [address] [facility], [address] [place] [address], [facility] [phone] * (ABNORMAL) HEMOGLOBIN A1C (09/11/2022 8:48 AM [...] PA-C LAB - BLOOD ORDERAB LES LABORATORY [facility] Lab [address] [facility] (no room number, 1st floor of clinic) [place] [address], [place] [phone] * Stool: occult blood (06/23/2019 9:59 AM ENTEROSTOMAL NURSE) Occult Blood Negative NEG^Negati ve 06/23/2019 10:11 AM ENTEROSTOMAL NURSE [facility] Comment: Called to RUTH PRITCHETT IN ERA @ 1010 ON 06/23/19, NB Stool specimen (specimen) 06/23/2019 9:59 AM ENTEROSTOMAL NURSE 06/23/2019 10:05 AM ENTEROSTOMAL NURSE Destinee Graham DO LAB - STOOLS ORDER RIMMA MISYS [facility] [address] [place] [address], [place] [phone] from Last 3 Months or Most Recently Relevant to Health Maintenance Advance Directives For more information, please contact: [phone] * Full Code (Latest Code Status on [...] Comments Code status determined by: Discussion with aman nt/legal decision maker Care Teams Abap Developer Relationship Specialty Start Date End Date Loretta Elizalde PA-C [address] [place] [address] PCP - General Family Medicine 09/25/22 Олег Kaiser MD [address] [place] [address] [phone] Urology 04/05/21 Loretta Elizalde PA-C [address] [place] [address] Assigned PCP 09/22/22 Dong Craft MD [address] [place] [address] [phone] Hematology 10/09/22 Grazyna Damian, NORBERT [address] [place] [address] [phone] Assigned Cancer Care Provider 05/25/23
--- OUTSIDE RECORDS SUMMARY | 2023-11-07 10:57 | XMS_ITS | Encounter Summary ---
Author Organization [place] Address [address] [place] [address] Care Team Providers Care Funeral Home Associate Name Role Phone Олег Kaiser MD Unavailable [phone] Loretta Elizalde PA-C Unavailable [phone] Loretta Elizalde PA-C Primary Care Provider [phone] Dong Craft MD Unavailable [phone] Dong Craft MD Unavailable [phone] Grazyna Damian CNP Unavailable [phone] Encounter Details Date Type Department Care Team (Late st Contact Info) Description 02/01/2023 [facility]C [facility] [address] [place] [address] Bhavik Coelho MA Social History [...] Department Care Team (Late Contact Info) Description 12/11/2023 7:30 AM CDT [facility] [address] [place] [address] Loretta Elizalde PA-C [address] [place], [place] [phone] documented as of this encounter Visit Diagnoses Not on filedocumented in this encounter Additional Health Concerns Assessment Noted Time PHQ-9 Depression Total Score: 2 09/12/19 23 7:51 AM CDT documented as of this encounter Care Teams Funeral Home Associate Relationship Specialty Start Date End Date Loretta Elizalde PA-C [address] [place] [address] PCP - General Family Medicine 09/25/22 Олег Kaiser MD [address] [place] [address] Urology 04/05/21 Loretta Elizalde PA-C [address] [place] [address] Assigned PCP 09/22/22 Dong Craft MD [address] [place] [address] [facility] 10/09/22 Dong Craft MD [address] [place] [address] Assigned Cancer Care Provider 11/24/22 05/24/23 Grazyna Damian CNP [address] [place] [address] Assigned Cancer Care Provider 05/25/23 documented as of this encounter
--- OUTSIDE RECORDS SUMMARY | 2023-11-07 10:57 | XMS_ITS | Encounter Summary ---
Author Organization [place] Address [address] [facility] [place] [address] Care Team Providers Care Crown Attacher Name Role Phone Олег Kaiser MD Unavailable [phone] Loretta Elizalde PA-C Unavailable [phone] Loretta Elizalde PA-C Primary Care Provider [phone] Dong Craft MD Unavailable [phone] Dong Craft MD Unavailable [phone] Grazyna Damian CNP Unavailable [phone] Encounter Details Date Type Department Care Team (Late st Contact Info) Description 02/01/[address] [facility] [address] [place] [address] Faith Cano Social History Tobacco [...] Description 12/11/2023 7:30 AM CDT [facility] [address] [place] [address] Loretta Elizalde PA-C [address] [place], [place] [phone] documented as of this encounter Visit Diagnoses Not on filedocumented in this encounter Additional Health Concerns Assessment Noted Time PHQ-9 Depression Total Score: 2 09/12/19 23 7:51 AM CDT documented as of this encounter Care Teams Crown Attacher Relationship Specialty Start Date End Date Loretta Elizalde PA-C [address] [place] [address] PCP - General Family Medicine 09/25/22 Олег Kaiser MD [address] [place] [address] Urology 04/05/21 Loretta Elizalde PA-C [address] [place] [address] Assigned PCP 09/22/22 Dong Craft MD [address] [place] [address] [facility] 10/09/22 Dong Craft MD [address] [place] [address] Assigned Cancer Care Provider 11/24/22 05/24/23 Grazyna Damian CNP [address] [place] [address] [id number] Assigned Cancer Care Provider 05/25/23 documented as of this encounter
--- OUTSIDE RECORDS SUMMARY | 2023-11-07 10:57 | XMS_ITS | Encounter Summary ---
Author Organization [place] Address [address] [facility] [place] [address] Care Team Providers Care Student Recruiter Name Role Phone Олег Kaiser MD Unavailable [phone] Loretta Elizalde PA-C Unavailable [phone] Loretta Elizalde PA-C Primary Care Provider [phone] Dong Craft MD Unavailable [phone] Grazyna Damian CNP Unavailable [phone] Reason for Visit * Reason Onset Date Comments Refill Request 10/30/2023 FLUoxetine (PROZ AC) 40 MG capsule and albuterol (PROAIR HFA/PROVENTIL HFA/VENTOLIN HFA) 108 (90 Base) MCG/ACT inhaler Encounter Details Date Type Department Care Team (Late st Contact Info) Description 10/30/2023 Refill [facility] [address] [place] [address] Loretta Elizalde PA-C [address] [place] [address] Refill Request (FLUoxetine (PROZAC) 40 [...] - 10/31/2023 12:35 PM CDT Scheduled. Faith Caon Lead Tubing Machine Tender [facility] * Telephone Encounter - Loretta Elizalde PA-C - 10/31/2023 11:39 AM CDT I would like to have a visit with him to discuss and I have virtual openings next week. Please helpschedule visit. He should still keep his physical as scheduled in November. Thanks! Loretta Elizalde PA-C * Telephone Encounter - Miguelina Hernandze RN - 10/31/2023 8:59 AM CDT Patient [...] Description 12/11/2023 7:30 AM CDT Office Visit [facility] [address] [place] [address] Loretta Elizalde PA-C [address] [place], [place] [phone] documented as of this encounter Goals Goal [...] documented as of this encounter Care Teams Student Recruiter Relationship Specialty Start Date End Date Loretta Elizalde PA-C [address] [place], [place] [phone] PCP - General Family Medicine 09/25/22 Олег Kaiser MD [address] [place] [address] Urology 04/05/21 Loretta Elizalde PA-C [address] [place] [address] Assigned PCP 09/22/22 Dong Craft MD [address] [place] [address] Hematology 10/09/22 Grazyna Damian, NORBERT [address] [address] Assigned Cancer Care Provider 05/25/23 documented as of this encounter
--- OUTSIDE RECORDS SUMMARY | 2023-11-07 10:57 | XMS_ITS | Encounter Summary ---
Author Organization [place] Address [address] [facility] [place] [address] Care Team Providers Care Cpc Name Role Phone [facility] Unavailable Jennifer Pond MD Primary Care Provider [facility] Primary Care Pro vider Dany Hirsch Primary Care Provider Johnie Farmer Primary Care Provider JobОлег bergeron MD Unavailable [phone] Deven Schulte MD Unavailable [phone] Олег Kaiser MD Unavailable [phone] Loretta Elizalde PA-C Unavailable [phone] Олег Kaiser MD Unavailable [phone] Loretta Elizalde PA-C Primary Care Provider Deven Schulte MD Unavailable [phone] Dong Craft MD Unavailable [phone] Dong Craft MD Unavailable [phone] Grazyna Damian CNP Unavailable [phone] Encounter Details Date Type Department Care Team (Late st Contact Info) Description 06/16/2015 MyC Medical Advice [address] [address] Ruth Leigh LPN Social History Tobacco Use [...] Description 12/11/2023 7:30 AM CDT Office Visit [facility] [address] [place] [address] Loretta Elizalde PA-C [address] [place] [address] documented as of this encounter Visit Diagnoses Not on filedocumented in this encounter Additional Health Concerns Infection Onset Date Last Indicated Resolved Time Rule Out COVID-19 10/09/2019 10/09/2019 10/09/2019 9:36 PM CDT Rule Out COVID-19 11/20/2019 11/20/2019 11/21/2019 5:10 PM CDT Rule Out COVID-19 11/25/2019 11/25/2019 11/26/2019 4:41 PM CDT Rule Out COVID-19 04/18/2020 04/18/2020 04/18/2020 4:22 PM SOLAR PHOTOVOLTAIC INSTALLER COVID-19 04/18/2020 04/18/2020 05/09/2020 11:4 0 PM SOLAR PHOTOVOLTAIC INSTALLER documented as of this encounter Care Teams Cpc Relationship Specialty Start Date End Date Jennifer Pond MD [address] [facility] [place] [address] PCP - General Internal Medicine 11/08/14 08/26/16 [facility] [address] [place], [place] [phone] PCP - General 08/27/16 10/26/16 Dany Hirsch [address] [place] [address] PCP - General Family Practice 10/27/16 01/29/18 MarlenyJohnie [address] [place] [address] PCP - General Family Practice 01/30/18 09/24/22 Loretta Elizalde PA-C [address] [place] [address] PCP - General Family Medicine 09/25/[address] [phone] 06/14/11 08/26/16 Олег Kaiser MD [address] [place] [address] 509695 Urology 04/05/21 Deven Schulte MD [address] [place] [address] [phone] Assigned Surgical Provider 04/23/21 09/21/22 Олег Kaiser MD [address] [place] [address] Assigned Surgical Provider 04/16/21 04/22/21 Loretta Elizalde PA-C [address] [place] [address] Assigned PCP 09/22/22 Олег Kaiser MD [address] [place] [address] Assigned Surgical Provider 09/22/22 09/28/22 Deven Schulte MD [address] [place] [address] Assigned Surgical Provider 09/29/22 10/19/22 Dong Craft MD [address] [place] [address] MD Gómez 10/09/22 Dong Craft MD [address] [place] [address] Assigned Cancer Care Provider 11/24/22 05/24/23 Grazyna Damian, NORBERT [address] [place] [address] Assigned Cancer Care Provider 05/25/23 documented as of this encounter
--- OUTSIDE RECORDS SUMMARY | 2023-11-07 10:57 | XMS_ITS | Encounter Summary ---
Author Organization [place] Address [address] [facility] [place] [address] Care Team Providers Care Planer Tailer Name Role Phone Олег Kaiser MD Unavailable [phone] Loretta Elizalde PA-C Unavailable [phone] Loretta Elizalde PA-C Primary Care Provider [phone] Dong Craft MD Unavailable [phone] Dong Craft MD Unavailable [phone] Grazyna Damian CNP Unavailable [phone] Encounter Details Date Type Department Care Team (Late st Contact Info) Description 12/06/2022 [facility] [address] 4th [place] [address] [facility] Social History Tobacco Use Types Packs/Day Years [...] Description 12/11/2023 7:30 AM CDT Office Visit [facility] [address] [place] [address] Loretta Elizalde PA-C [address] [place] [address] documented as of this encounter Visit Diagnoses Not on filedocumented in this encounter Additional Health Concerns Assessment Noted Time PHQ-9 Depression Total Score: 2 09/12/19 7:51 AM CDT documented as of this encounter Care Teams Planer Tailer Relationship Specialty Start Date End Date Loretta Elizalde PA-C [address] [place] [address] PCP - General Family Medicine 09/25/22 Олег Kaiser MD [address] [place] [address] Urology 04/05/21 Loretta Elizalde PA-C [address] [place] [address] Assigned PCP 09/22/22 Dong Craft MD [address] [place] [address] Hematology 10/09/22 Dong Craft MD [address] [place] [address] 961475 Assigned Cancer Care Provider 11/24/22 05/24/23 Grazyna Damian CNP [address] [place] [address] 287505 Assigned Cancer Care Provider 05/25/23 documented as of this encounter
--- OUTSIDE RECORDS SUMMARY | 2023-11-07 10:57 | XMS_ITS | Encounter Summary ---
Author Organization [place] Address [address] [facility] [place] [address] Care Team Providers Care Earthmoving Labourer Name Role Phone Олег Kaiser MD Unavailable [phone] Loretta Elizalde PA-C Unavailable [phone] Loretta Elizalde PA-C Primary Care Provider [phone] Dong Craft MD Unavailable [phone] Dong Craft MD Unavailable [phone] Grazyna Damian CNP Unavailable [phone] Encounter Details Date Type Department Care Team (Late st Contact Info) Description 04/19/2023 [facility] [address] [place] [address] Faith Cano Social History Tobacco [...] Description 12/11/2023 7:30 AM CDT [facility] [address] [place] [address] Loretta Elizalde PA-C [address] [place] [address] documented as of this encounter Visit Diagnoses Not on filedocumented in this encounter Additional Health Concerns Assessment Noted Time PHQ-9 Depression Total Score: 2 09/12/19 23 7:51 AM CDT documented as of this encounter Care Teams Earthmoving Labourer Relationship Specialty Start Date End Date Loretta Elizalde PA-C [address] [place] [address] PCP - General Family Medicine 09/25/22 Олег Kaiser MD [address] [place] [address] 661535 Urology 04/05/21 Loretta Elizalde PA-C [address] [place] [address] Assigned PCP 09/22/22 Dong Craft MD [address] [place] [address] 852235 Hematology 10/09/22 Dong Craft MD [address] [place] [address] Assigned Cancer Care Provider 11/24/22 05/24/23 Grazyna Damian CNP [address] [place] [address] Assigned Cancer Care Provider 05/25/23 documented as of this encounter
--- OUTSIDE RECORDS SUMMARY | 2023-11-07 10:57 | XMS_ITS | Encounter Summary ---
Author Organization [place] Address [facility] [place] [address] Care Team Providers Care Drywall Finisher Foreman Name Role Phone Олег Kaiser MD Unavailable [phone] Loretta Elizalde PA-C Unavailable [phone] Loretta Elizalde PA-C Primary Care Provider [phone] Dong Craft MD Unavailable [phone] Grazyna Damian CNP Unavailable [phone] Encounter Details Date Type Department Care Team (Late st Contact Info) Description 08/19/2023 MyC Medical Advice [facility] Blood and Marrow Transplant Program [address] [address] Eleanor Schwartz Social History Tobacco [...] Description 12/11/2023 7:30 AM CDT Office Visit [address] [address] Loretta Elizalde PA-C [address] [place], [place] [id number] documented as of this encounter Goals Goal [...] documented as of this encounter Care Teams Drywall Finisher Foreman Relationship Specialty Start Date End Date Loretta Elizalde PA-C [address] [place] [address] PCP - General Family Medicine 09/25/22 Олег Kaiser MD [address] [place] [address] [phone] Urology 04/05/21 Loretta Elizalde PA-C [address] [place] [address] Assigned PCP 09/22/22 Dong Craft MD [address] [place] [address] 103185 Hematology 10/09/22 Grazyna Damian, [place] [address] [place] [address] Assigned Cancer Care Provider 05/25/23 documented as of this encounter
--- OUTSIDE RECORDS SUMMARY | 2023-11-07 10:57 | XMS_ITS | Encounter Summary ---
Author Organization [place] Address [address] [place] [address] Care Team Providers Care Book Sewer Name Role Phone [facility] Unavailable Jennifer Pond MD Primary Care Provider [facility] Primary Care Pro vider Dany Hirsch Primary Care Provider Johnie Farmer Primary Care Provider JobОлег bergeron MD Unavailable [phone] Deven Schulte MD Unavailable [phone] Олег Kaiser MD Unavailable [phone] Loretta Elizalde PA-C Unavailable [phone] Олег Kaiser MD Unavailable [phone] Loretta Elizalde PA-C Primary Care Provider Deven Schulte MD Unavailable [phone] Dong Craft MD Unavailable [phone] Dong Craft MD Unavailable [phone] Grazyna Damian CNP Unavailable [phone] Encounter Details Date Type Department Care Team (Late st Contact Info) Description 03/24/2015 MyC Medical Advice [address] [address] Vibha Orozco Social History Tobacco Use Types [...] 7:30 AM CDT Office Visit [facility] [address] [place] [address] Loretta Elizalde PA-C [address] [place] [address] documented as of this encounter Visit Diagnoses Not on filedocumented in this encounter Additional Health Concerns Infection Onset Date Last Indicated Resolved Time Rule Out COVID-19 10/09/2019 10/09/2019 10/09/2019 9:36 PM CDT Rule Out COVID-19 11/20/2019 11/20/2019 11/21/2019 5:10 PM CDT Rule Out COVID-19 11/25/2019 11/25/2019 11/26/2019 4:41 PM CDT Rule Out COVID-19 04/18/2020 04/18/2020 04/18/2020 4:22 PM MANAGER DIESEL COVID-19 04/18/2020 04/18/2020 05/09/2020 11:4 0 PM MANAGER DIESEL documented as of this encounter Care Teams Book Sewer Relationship Specialty Start Date End Date Jennifer Pond MD [address] [facility] [place] [address] PCP - General Internal Medicine 11/08/14 08/26/16 [facility] [address] [place] [address] [phone] PCP - General 08/27/16 10/26/16 RobbiejimboMayra greenbergmanolo [address] [place] [address] PCP - General Family Practice 10/27/16 01/29/18 Johnie Farmer [address] [place] [address] PCP - General Family Practice 01/30/18 09/24/22 Loretta Elizalde PA-C [address] [place] [address] PCP - General Family Medicine 09/25/[address] [address] 06/14/11 08/26/16 Олег Kaiser MD [address] [place] [address] Urology 04/05/21 Deven Schutle MD [address] [place] [address] 362925 Assigned Surgical Provider 04/23/21 09/21/22 Олег Kaiser MD [address] [place] [address] Assigned Surgical Provider 04/16/21 04/22/21 Loretta Elizalde PA-C [address] [place] [address] Assigned PCP 09/22/22 Олег Kaiser MD [address] [place] [address] Assigned Surgical Provider 09/22/22 09/28/22 Deven Schulte MD [address] [place] [address] Assigned Surgical Provider 09/29/22 10/19/22 Dong Craft MD [address] [place] [address] [facility] 10/09/22 Dong Craft MD [address] [place] [address] Assigned Cancer Care Provider 11/24/22 05/24/23 Grazyna Damian CNP [address] [place] [address] Assigned Cancer Care Provider 05/25/23 documented as of this encounter
--- OUTSIDE RECORDS SUMMARY | 2023-11-07 10:57 | XMS_ITS | Encounter Summary ---
Author Organization [place] Address [address] [facility] [place] [address] Care Team Providers Care Headline Writer Name Role Phone [facility] Unavailable Jennifer Pond MD Primary Care Provider [facility] Primary Care Pro vider Dany Hirsch Primary Care Provider [phone] Johnie Farmer Primary Care Provider JobОлег bergeron MD Unavailable [phone] Deven Schulte MD Unavailable [phone] Олег Kaiser MD Unavailable [phone] Loretta Elizalde PA-C Unavailable [phone] Олег Kaiser MD Unavailable [phone] Loretta Elizalde PA-C Primary Care Provider [phone] Deven Schulte MD Unavailable [phone] Dong Craft MD Unavailable [phone] Dong Craft MD Unavailable [phone] Grazyna Damian CNP Unavailable [phone] Encounter Details Date Type Department Care Team (Late st Contact Info) Description 06/16/2015 MyC Medical Advice [address] [address] Ruth Leigh LPN Social History Tobacco Use [...] Description 12/11/2023 7:30 AM CDT Office Visit [facility] [address] [place] [address] Loretta Elizalde PA-C [address] [place] [address] documented as of this encounter Visit Diagnoses Not on filedocumented in this encounter Additional Health Concerns Infection Onset Date Last Indicated Resolved Time Rule Out COVID-19 10/09/2019 10/09/2019 10/09/2019 9:36 PM CDT Rule Out COVID-19 11/20/2019 11/20/2019 11/21/2019 5:10 PM CDT Rule Out COVID-19 11/25/2019 11/25/2019 11/26/2019 4:41 PM CDT Rule Out COVID-19 04/18/2020 04/18/2020 04/18/2020 4:22 PM CONVEYOR TENDER CONCRETE MIXING PLANT COVID-19 04/18/2020 04/18/2020 05/09/2020 11:4 0 PM CONVEYOR TENDER CONCR[employer]E [employer]ANT documented as of this encounter Care Teams Headline Writer Relationship Specialty Start Date End Date Jennifer Pond MD [address] [facility] [place] [address] PCP - General Internal Medicine 11/08/14 08/26/16 [facility] [address] [place], [place] [phone] PCP - General 08/27/16 10/26/16 Dany Hirsch [address] [place] [address] PCP - General Family Practice 10/27/16 01/29/18 MarlenyJohnie [address] [place] [address] PCP - General Family Practice 01/30/18 09/24/22 Loretta Elizalde PA-C [address] [place] [address] PCP - General Family Medicine 09/25/[address] [phone] 06/14/11 08/26/16 Олег Kaiser MD [address] [place] [address] 083305 Urology 04/05/21 Deven Schulte MD [address] [place] [address] 113825 Assigned Surgical Provider 04/23/21 09/21/22 Олег Kaiser MD [address] [place] [address] Assigned Surgical Provider 04/16/21 04/22/21 Loretta Elizalde PA-C [address] [place] [address] Assigned PCP 09/22/22 Олег Kaiser MD [address] [place] [address] Assigned Surgical Provider 09/22/22 09/28/22 Deven Schulte MD [address] [place] [address] Assigned Surgical Provider 09/29/22 10/19/22 Dong Craft MD [address] [place] [address] MD Gómez 10/09/22 Dong Craft MD 9 [place] [address] Assigned Cancer Care Provider 11/24/22 05/24/23 Grazyna Damian, NORB[place] [address] [place] [address] Assigned Cancer Care Provider 05/25/23 documented as of this encounter
--- OUTSIDE RECORDS SUMMARY | 2023-11-07 10:57 | XMS_ITS | Encounter Summary ---
Author Organization [place] Address [address] [facility] [place] [address] Care Team Providers Care Store Detective Name Role Phone Олег Kaiser MD Unavailable [phone] Loretta Elizalde PA-C Unavailable [phone] Loretta Elizalde PA-C Primary Care Provider [phone] Dong Craft MD Unavailable [phone] Dong Craft MD Unavailable [phone] Grazyna Damian CNP Unavailable [phone] Encounter Details Date Type Department Care Team (Late st Contact Info) Description 05/14/2023 MyC Medical Advice [facility] Clinic [address] [place] [address] [facility] Social History Tobacco Use Types Packs/Day [...] Description 12/11/2023 7:30 AM CDT Office Visit [address] [place] [address] Loretta Elizalde PA-C [address] [place] [address] documented as of this encounter Visit Diagnoses Not on filedocumented in this encounter Additional Health Concerns Assessment Noted Time PHQ-9 Depression Total Score: 2 09/12/19 23 7:51 AM CDT documented as of this encounter Care Teams Store Detective Relationship Specialty Start Date End Date Loretta Elizalde PA-C [address] [place] [address] PCP - General Family Medicine 09/25/22 Олег Kaiser MD [address] [place] [address] [phone] Urology 04/05/21 Loretta Elizalde PA-C [address] [place] [address] Assigned PCP 09/22/22 Dong Craft MD [address] [place] [address] [phone] Hematology 10/09/22 Dong Craft MD [address] [place] [address] Assigned Cancer Care Provider 11/24/22 05/24/23 Grazyna Damian CNP [address] [place] [address] Assigned Cancer Care Provider 05/25/23 documented as of this encounter
--- OUTSIDE RECORDS SUMMARY | 2023-11-07 10:57 | XMS_ITS | Referral Summary ---
Author Organization [place] Address [address] [facility] 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) (Primary Dx); Moderate persistent asthma without complication; Type 2 diabetes mellitus with diabetic nephropathy, 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 Use to read blood sugars per public policy professor's instructions. 6 each 5 11/06/2023 Active albuterol [...] 4 Discontinued (Reorder (No AVS)) Continuous Glucose Automatic Gluing Machine Operator (Monsoon CommerceYLE SHIRLENE 3 READER) DEVIIndications:Ty pe 2 diabetes mellitus with diabetic nephropathy, 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) 1 each once for 1 dose Use to read blood sugars per public policy professor's instructions. 1 each 11/06/2023 4 Active Problems Patient Care Coordination No te Formatting of this note migh t be different from the original. EMERGENCY CARE PLAN ACUTE CARE PLAN FOR THE FOLLOWING CONDITIONS: Chronic abdominal pain BRIEF HISTORY OF CONDITIONS: He has history of patricia-en-y gastric bypass surgery in 2006. Has been seen in emergency departments frequently in 9225-2154 for epigastric abdominal pain. Has chronic pain of 7/10 noted on December 2018 [facility] admission. He has had significant workup for this pain throughout this time. Patient has had multiple gallbladder US and CT abdomen/pelvis during this time that have been unremarkable. He had EGD in September 2018 through [facility] that was normal. He [facility] general [facility] that thought some of [...] care provider CONTACT INFORMATION FOR PMD OR SHOP LABORER: Johnie Farmer MD [phone] PAIN CONTRACT CLINIC/PRESCRIBER: N/A RESTRICTED STATUS IF [...] Overview: H/o overdose attempt (2006), hospitalized at [facility] 2010 Vitamin D deficiency 05/16/2010 Acute gout of right knee, unspecified cause 05/29 S/P gastric bypass 06/25/2008 09/11/2022 Overview: ~2001, [facility], Dr Zhou? 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, attending [facility] 09/22/2013 09/11/2022 Overview: State Tier Level: NA Status: NA Language And Literature Division Chair: See Letters for [facility] Care Plan Pernicious [...] () (Pfizer) 03/28/2023 COVID-19 MONOVALENT 12+ (Pfizer) 11/04/2020,052 05/2020 Flu, Unspecified 03/15/2019 [id number] Novel Flu P-free 07/08/2009 HepB 04/11/2012,05/12/2010,02/09/2010 Hepatitis [...] Comments Blood Pressure 153/95 05/14/2023 12:14 PM COMMERCIAL LOAN ASSISTANT Pulse 89 05/14/2023 12:14 PM COMMERCIAL LOAN ASSISTANT Temperature 36.4 ??C (97.6 ??F) 05/14/2023 12:[address] Respiratory Rate 18 05/14/2023 12:14 PM COMMERCIAL LOAN ASSISTANT Oxygen Saturation 98% 05/14/2023 12:14 PM COMMERCIAL LOAN ASSISTANT Inhaled Oxygen Concentration - - Weight 99.3 kg (219 lb) 05/14/2023 12:14 PM COMMERCIAL LOAN ASSISTANT Height 175.3 cm (5' 9) 10/16/2022 1:50 PM CDT Body Mass Index 32.34 10/16/2022 1:50 PM CDT Plan of Treatment Upcoming Encounters Date Type Department Care Team (Late st Contact Info) Description 12/11/2023 7:30 AM CDT Office Visit [facility] [address] [place] [address] Loretta Elizalde PA-C [address] [place] [address] Goals Goal Patient Goal Type Associated Problems [...] my appointments. Medical Devices Implanted Type Area Bar Turner Device Identifier Shelf Expiration Date Model / Serial / Lot Stent Ureteral Polaris Ultra [id number] - [id number] Implanted:Qty: 1 on 04/08/2021 by Олег Kaiser MD at [facility] Stent Right: Abdomen [employer] 01/06/2024 [id number] / / [id number] Procedures Procedure Name Priority Date/Time Associated Diagnosis [...] BLOOD STOOL STAT 06/23/2019 9: 59 AM COMMERCIAL LOAN ASSISTANT ASTHMA ACTION PLAN Routine 10/13/2015 9: 27 [...] - 15 mmol/L 10/04/2022 7:04 AM CDT [facility] Urea Nitrogen 7.7 6.0 - 20.0 [...] MD LAB - BLOOD ORDER [facility] Acute Care Lab [address] [facility] (1st floor, no room number) [place] [address] [phone] * COLONOSCOPY (10/03/2022 12:08 PM CDT) [facility] Signature COLONOSCOPY [facility] Patient Name: Alex ??Salter ?Procedure Date: 10/03/2022 [...] continuously. The ?Olympus Adult Colonoscope, Model # [id number], ?Endora # 226, SN # [id number] was introduced through ?the anus and advanced [...] Note Initiated On: 10/03/2022 12:08 PM MRN: ?[id number] Procedure Date: ? 10/03/2022 12:08:54 PM Scope [...] control, and institution of therapy with an objuswudipf-lgpbprewqg-nocgew (ABNER) inhibitor (if the patient can tolerate it). ?? Urine URINE SPECIMEN / Unknown Non-blood Collection / Unknown 09/25/2022 3:40 PM CDT 09/25/2022 3:41 PM CDT Loretta Elizalde PA-C LAB - URINE ORDERAB LES [facility] [place] Core Lab [address] [facility], [address] [id number] [phone] * HIV Antigen Antibody Combo (09/11/2022 8:48 AM CDT) HIV Antigen Antibody Combo Nonreactive Nonreactive 09/11/2022 5:57 PM CDT SPECIALTY CORE/PROT/EN DO Comment:HIV-1 p24 Ag & HIV-1 /HIV-2 Ab Not Detected Blood BLOOD SPECIMEN / Unknown Venipuncture / Unknown 09/11/2022 8:48 AM CDT 09/11/2022 8:48 AM CDT Loretta Elizalde PA-C LAB - BLOOD ORDERAB LES [facility] SPECIALTY CORE/PROT/ENDO Specialty Core/Prot/Endo [address] [facility], Room [address] [phone] * Hepatitis C Screen Reflex to HCV [...] Elizalde PA-C LAB - BLOOD ORDERAB LES Performing Organization Address City/[facility]/ZIP Co de Phone Number UM SPECIALTY CORE/PROT/ENDO Specialty Core/Prot/Endo [address] [facility], Room [address] [phone] * (ABNORMAL) Lipid panel reflex to direct [...] AM CDT 09/11/2022 8:48 AM CDT Narrative U [facility]AT[facility] - 09/11/2022 2:52 PM CDT Cholesterol [...] PA-C LAB - BLOOD ORDERAB LES LABORATORY [facility] [place] Core Lab [address] [facility], [address] [address], [facility] [phone] * (ABNORMAL) HEMOGLOBIN A1C (09/11/2022 8:48 AM CDT) [facility] Hemoglobin A1C 8.9(H) 0.0 - 5.6 % [...] PA-C LAB - BLOOD ORDERAB LES LABORATORY [facility] Lab [address] [facility] Lab (no room number, 1st floor of clinic) [place] [address], [facility] [phone] * Stool: occult blood (06/23/2019 9:59 AM COMMERCIAL LOAN ASSISTANT) Occult Blood Negative NEG^Negati ve 06/23/2019 10:11 AM COMMERCIAL LOAN ASSISTANT [facility] Comment: Called to RUTH PRITCHETT IN ERA @ 1010 ON 06/23/19, NB Stool specimen (specimen) 06/23/2019 9:59 AM COMMERCIAL LOAN ASSISTANT 06/23/2019 10:05 AM COMMERCIAL LOAN ASSISTANT Destinee Graham DO LAB - STOOLS ORDER RIMMA [facility] [address] [place] [address], [facility] [phone] from Last 3 Months or Most Recently Relevant to Health Maintenance Advance Directives For more information, please contact: [phone] * Full Code (Latest Code Status on [...] with patie nt/legal decision maker Care Teams Bread Supervisor Relationship Specialty Start Date End Date Loretta Elizalde PA-C [address] [place] [address] PCP - General Family Medicine 09/25/22 Олег Kaiser MD [address] [place] [address] 667375 Urology 04/05/21 Loretta Elizalde PA-C [address] [place] [address] Assigned PCP 09/22/22 Dong Craft MD [address] [place] [address] 235445 Hematology 10/09/22 Grazyna Damian, NORBERT [address] [facility] [address] [place] [address] Assigned Cancer Care Provider 05/25/23
--- OUTSIDE RECORDS SUMMARY | 2023-11-07 10:57 | XMS_ITS | Encounter Summary ---
Author Organization [place] Address [address] [facility] [place] [address] Care Team Providers Care Automotive Hardware Engineer Name Role Phone [facility] Unavailable Jennifer Pond MD Primary Care Provider [facility] Primary Care Pro vider Dany Hirsch Primary Care Provider Johnie Farmer Primary Care Provider JobОлег bergeron MD Unavailable [phone] Deven Schulte MD Unavailable [phone] Олег Kaiser MD Unavailable [phone] Loretta Elizalde PA-C Unavailable [phone] Олег Kaiser MD Unavailable [phone] Loretta Elizalde PA-C Primary Care Provider Deven Schulte MD Unavailable [phone] Dong Craft MD Unavailable [phone] Dong Craft MD Unavailable [phone] Grazyna Damian CNP Unavailable [phone] Encounter Details Date Type Department Care Team (Late st Contact Info) Description 05/02/2015 My[facility] Medical Advice [address] [address] Ruth Leigh LPN Social History Tobacco Use [...] 7:30 AM CDT Office Visit [facility] [address] [place] [address] Loretta Elizalde PA-C [address] [place] [address] documented as of this encounter Visit Diagnoses Not on filedocumented in this encounter Additional Health Concerns Infection Onset Date Last Indicated Resolved Time Rule Out COVID-19 10/09/2019 10/09/2019 10/09/2019 9:36 PM CDT Rule Out COVID-19 11/20/2019 11/20/2019 11/21/2019 5:10 PM CDT Rule Out COVID-19 11/25/2019 11/25/2019 11/26/2019 4:41 PM CDT Rule Out COVID-19 04/18/2020 04/18/2020 04/18/2020 4:22 PM BREWING TECHNICIAN COVID-19 04/18/2020 04/18/2020 05/09/2020 11:4 0 PM BREWING TECHNICIAN documented as of this encounter Care Teams Automotive Hardware Engineer Relationship Specialty Start Date End Date Jennifer Pond MD [address] [facility] [place] [address] PCP - General Internal Medicine 11/08/14 08/26/16 [facility] [address] [place], [place] [id number] PCP - General 08/27/16 10/26/16 Dany Hirsch [address] [place] [address] PCP - General Family Practice 10/27/16 01/29/18 MarlenyJohnie [address] [place] [address] PCP - General Family Practice 01/30/18 09/24/22 Loretta Elizalde PA-C [address] [place] [address] PCP - General Family Medicine 09/25/[address] [id number] 06/14/11 08/26/16 Олег Kaiser MD [address] [place] [address] [id number] Urology 04/05/21 Deven Schulte MD [address] [place] [address] [id number] Assigned Surgical Provider 04/23/21 09/21/22 Олег Kaiser MD [address] [place] [address] Assigned Surgical Provider 04/16/21 04/22/21 Loretta Elizalde PA-C [address] [place] [address] Assigned PCP 09/22/22 Олег Kaiser MD [address] [place] [address] Assigned Surgical Provider 09/22/22 09/28/22 Deven Schulte MD [address] [place] [address] Assigned Surgical Provider 09/29/22 10/19/22 Dong Craft MD [address] [place] [address] MD Gómez 10/09/22 Dong Craft MD [address] [place] [address] Assigned Cancer Care Provider 11/24/22 05/24/23 Grazyna Damian, NORBERT [address] [place] [address] Assigned Cancer Care Provider 05/25/23 documented as of this encounter
--- OUTSIDE RECORDS SUMMARY | 2023-11-07 10:57 | XMS_ITS | Encounter Summary ---
Author Organization [place] Address [address] [place] [address] Care Team Providers Care Paralegal Internship Name Role Phone Олег Kaiser MD Unavailable [phone] Loretta Elizalde PA-C Unavailable [phone] Loretta Elizalde PA-C Primary Care Provider [phone] Dong Craft MD Unavailable [phone] Dong Craft MD Unavailable [phone] Grazyna Damian CNP Unavailable [phone] Encounter Details Date Type Department Care Team (Late Contact Info) Description 12/10/2022 [facility] Medical Advice [facility] [address] [place] [address] Vibha Ernst Social History Tobacco [...] AM CDT Office Visit [facility] [address] [place] [address] Loretta Elizalde PA-C [address] [place] [address] documented as of this encounter Visit Diagnoses Not on filedocumented in this encounter Additional Health Concerns Assessment Noted Time PHQ-9 Depression Total Score: 2 09/12/19 7:51 AM CDT documented as of this encounter Care Teams Paralegal Internship Relationship Specialty Start Date End Date Loretta Elizalde PA-C [address] [place] [address] PCP - General Family Medicine 09/25/22 Олег Kaiser MD [address] [place] [address] Urology 04/05/21 Loretta Elizalde PA-C [address] [place] [address] Assigned PCP 09/22/22 Dong Craft MD [address] [place] [address] 077565 Hematology 10/09/22 Dong Craft MD [address] [place] [address] [phone] Assigned Cancer Care Provider 11/24/22 05/24/23 Grazyna Damian CNP [address] [place] [address] [id number] Assigned Cancer Care Provider 05/25/23 documented as of this encounter
--- OUTSIDE RECORDS SUMMARY | 2023-11-07 10:57 | XMS_ITS | Encounter Summary ---
Author Organization [place] Address [address] [facility] [place] [address] Care Team Providers Care Finance Insurance Manager Name Role Phone MarlenyJohnie Primary Care Provider [phone] Олег Kaiser MD Unavailable [phone] Deven Schulte MD Unavailable [phone] Loretta Elizalde PA-C Unavailable [phone] Олег Kaiser MD Unavailable [phone] Loretta Elizalde PA-C Primary Care Provider [phone] Deven Schulte MD Unavailable [phone] Dong Craft MD Unavailable [phone] Dong Craft MD Unavailable [phone] Grazyna Damian CNP Unavailable [phone] Reason for Visit * Reason Onset Date Comments Diabetes Education 09/12/2022 Encounter Details Date Type Department Care Team (Late st Contact Info) Description 09/12/2022 Telephone [facility] [address] [place] [address] Loretta Elizalde PA-C [address] [place] [address] Diabetes Education Social History Tobacco [...] outreach attempt within 3 business days. Christiane Garner [facility] Nutrition Scheduling documented in this encounter Plan of Treatment Upcoming Encounters Date Type Department Care Team (Late st Contact Info) Description 12/11/2023 7:30 AM CDT Office Visit [facility] [address] [place] [address] Loretta Elizalde PA-C [address] [place] [address] documented as of this encounter Visit Diagnoses Not on filedocumented in this encounter Additional Health Concerns Assessment Noted Time PHQ-9 Depression Total Score: 2 09/12/19 7:51 AM CDT documented as of this encounter Care Teams Finance Insurance Manager Relationship Specialty Start Date End Date Johnie Farmer PCP - General Family Practice 01/30/18 09/24/22 Loretta Elizalde PA-C [address] [place] [address] PCP - General Family Medicine 09/25/22 Олег Kaiser MD [address] [place] [address] [id number] Urology 04/05/21 Deven Schulte MD [address] [place] [address] 273175 Assigned Surgical Provider 04/23/21 Loretta Elizalde PA-C [address] [place] [address] Assigned PCP 09/22/22 Олег Kaiser MD [address] [place] [address] 333175 Assigned Surgical Provider 09/22/2209/28/22 Deven Schulte MD [address] [place] [address] 959655 Assigned Surgical Provider 09/29/22 Dong Craft MD [address] [place] [address] 115475 MD Gómez 10/09/22 Dong Craft MD [address] [place] [address] Assigned Cancer Care Provider 11/24/22 05/24/23 Grazyna Damian CNP [address] [place] [address] [address] [place] [address] Assigned Cancer Care Provider 05/25/23 documented as of this encounter
--- OUTSIDE RECORDS SUMMARY | 2023-11-07 10:57 | XMS_ITS | Encounter Summary ---
Author Organization [place] Address [address] [facility] [place] [address] Care Team Providers Care Demolition Worker Name Role Phone Олег Kaiser MD Unavailable [phone] Loretta Elizalde PA-C Unavailable [phone] Loretta Elizalde PA-C Primary Care Provider [phone] Dong Craft MD Unavailable [phone] Grazyna Damian CNP Unavailable [phone] Reason for Visit * Reason Comments Depression Recheck Medication Diabetes Hypertension Lipids Asthma Encounter Details Date Type Department Care Team (Late st Contact Info) Description 11/06/2023 4:00 PM CDT Virtual Visit [facility] [address] [place] [address] Loretta Elizalde PA-C [address] [place] [address] 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 How would you like to obtain your AVS? MyChart If the video visit is dropped, the invitation should be resent by: Text to cell phone: [phone] Will anyone else be joining your video visit? 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 No HI/SI. Restart fluoxetine. Follow-up in 1 month as scheduled. - FLUoxetine (PROZAC) 10 MG capsule; Take 1 capsule (10 mg) by mouth daily for 7 days THEN increaseto 20 mg daily - FLUoxetine (PROZAC) 20 MG capsule; Take 1 capsule (20 mg) by mouth daily Start AFTER taking 10 mgdaily for 1 week Moderate persistent asthma without complication Not controlled since running out of medication. No signs of respiratory distress at this time. Restart daily maintenance inhaler and albuterol PRN. Follow-up in 1 month as scheduled. 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 Plan to titrate up to max dose of metformin and consider additional medications such as GLP-1 or SGLT2-I if needed at follow-up in 1 month. Would benefit from CGM to help monitor glucose levels. - Continuous Glucose Chef Teacher (OleOle SHIRLENE 3 READER) JAZMIN; 1 each once for 1 dose Use to read blood sugars per benefits processor's instructions. - Continuous Glucose Sensor (FREESTYLE SHIRLENE 3 SENSOR) MISC; 1 each every 14 days Use 1 sensor every 14 days. Use to read blood sugars per benefits processor's instructions. - metFORMIN (GLUCOPHAGE XR) 500 MG 24 hr tablet; Take 1 tab in morning and 2 tabs in evening with meals for 1 week. Then if tolerated, take 2 tabs twice daily with meals. Hypertension goal BP (blood pressure) < 140/90 Appears uncontrolled based on BP when he was in ER earlier this week. He did have labs in ER this week showing normal electrolytes and kidney function. Will restart olmesartan and amlodipine that he was previously taking. Follow-up in 1 month as scheduled. - amLODIPine (NORVASC) 5 MG tablet; Take 1 tablet (5 mg) by mouth daily - olmesartan (BENICAR) 20 MG tablet; Take 1 tablet (20 mg) by mouth daily Hyperlipidemia LDL goal <70 Restart rosuvastatin and follow-up in 1 month as scheduled. - rosuvastatin (CRESTOR) 20 MG tablet; Take 1 tablet (20 mg) by mouth daily Subjective Alex is a 48 year old, presenting for the following health issues: Depression, Recheck Medication, Diabetes, Hypertension, Lipids, and Asthma History of Present Illness Mental Health Follow-up: Patient presents to follow-up on Depression.Patient's depression since last visit has been: Worse The patient is having other symptoms associated with depression. Any significant life events: No Patient is not feeling anxious or having panic attacks. Patient has no concerns about alcohol or drug use. I have not seen Alex since 09/2022 He ran out of medications for asthma, mood, diabetes, HTN, or hyperlipidemia for at least the past 3-6 months. He says he just stopped following up but now is wanting to get things back on track. HTN: Was previously taking amlodipine 5 mg daily and olmesartan 20 mg daily He does not monitor BP at home but was seen in ER at [facility] earlier this week for backpain and shoulder pain. BP was 192/110 in ER and he was told to follow-up with PCP. He had labs completed in ER and reports normal kidney function and electrolytes, high blood sugar: Creatinine 0.9 GFR 105 Glucose 312 Depression: He was taking fluoxetine 40 mg daily and found medication helpful in the past. Since he has been out of medication, he has been having increase in depression. Denies HI/SI. He would like to restart meds. 09/11/2022 7:47 AM 11/06/2023 3:16 PM PHQ PHQ-9 Total Score 2 7 Q9: Thoughts of better off /self-harm past 2 weeks Not at all Not at all 11/08/2014 6:35 PM 09/11/2022 7:47 AM KHALIF-7 SCORE Total Score 3 Total Score 2 Asthma: Asthma is not well controlled after running out of medication Ran out of maintenance inhaler (Breo Ellipta) and albuterol a few months ago Has had more wheezing and shortness of breath Denies current shortness of breath, wheezing, or concerns with respiratory distress Would like to restart asthma meds 09/22/2013 12:58 PM 11/08/2014 5:54 PM 09/11/2022 7:00 AM ACT Total Scores ACT Total Score 11 19 asthma er visits 1 = One 1 = One Asthma hosp visits 0 = None 0 = None ACT TOTAL SCORE (Goal Greater than or Equal to 20) 21 In the past 12 months, how many times did you visit the emergency room for your asthma without being admitted to the hospital? 0 In the past 12 months, how many times were you hospitalized overnight because of your asthma? 0 Diabetes Previously plan had been to titrate up to max dose of metformin and then consider adding GLP-1 medication if needed. He has been taking less metformin and only taking a few days per week to help makerx last longer. Recently started taking 500 mg BID a little more consisently. He is not monitoring glucose but would be interested in CGM to help monitor/manage diabetes. Review of Systems Constitutional, HEENT, cardiovascular, pulmonary, gi and gu systems are negative, except as otherwise noted. Objective Vitals: No vitals were obtained today due to virtual visit. Physical Exam GENERAL: alert and no distress EYES: Eyes grossly normal to inspection. No discharge or erythema, or obvious scleral/conjunctival abnormalities. RESP: No audible wheeze, cough, or visible cyanosis. Speaking in complete sentences. SKIN: Visible skin clear. No significant rash, abnormal pigmentation or lesions. NEURO: Cranial nerves grossly intact. Mentation and speech appropriate for age. PSYCH: Appropriate affect, tone, and pace of words Video-Visit Details Type of service: Video Visit Originating Location (pt. 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) Expected: 11/06/2023 (Approximate), Expires: 11/05/2024 documented as of this encounter Goals Goal [...] as of this encounter Visit Diagnoses Diagnosis 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)- Primary Moderate persistent asthma without complication Unspecified asthma Type 2 diabetes mellitus with diabetic nephropathy, 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) Hypertension goal BP (blood pressure) < 140/90 Unspecified essential hypertension Hyperlipidemia LDL goal <70 Other and unspecified hyperlipidemia documented in this encounter Additional Health Concerns Assessment Noted Time PHQ-9 Depression Total Score: 7 11/06/19 24 3:16 PM CDT documented as of this encounter Care Teams Demolition Worker Relationship Specialty Start Date End Date Loretta Elizalde PA-C [address] [place] [address] PCP - General Family Medicine 09/25/22 Олег Kaiser MD [address] [place] [address] 505505 Urology 04/05/21 Loretta Elizalde PA-C [address] [place] [address] Assigned PCP 09/22/22 Dong Craft MD [address] [place] [address] [id number] Hematology 10/09/22 Grazyna Damian CNP [address] [place] [address] 977449 Assigned Cancer Care Provider 05/25/23 documented as of this encounter
--- OUTSIDE RECORDS SUMMARY | 2023-11-07 10:57 | XMS_ITS | Encounter Summary ---
Author Organization [place] Address [address] [facility] [place] [address] Care Team Providers Care Bit Shaver Name Role Phone MarlenyJohnie Primary Care Provider [phone] Олег Kaiser MD Unavailable [phone] Deven Schulte MD Unavailable [phone] Олег Kaiser MD Unavailable [phone] Loretta Elizalde PA-C Unavailable Олег Kaiser MD Unavailable [phone] Loretta Elizalde PA-C Primary Care Provider Deven Schulte MD Unavailable [phone] Dong Craft MD Unavailable [phone] Dong Craft MD Unavailable [phone] Grazyna Damian CNP Unavailable [phone] Reason for Visit * Reason Onset Date Comments Appointment 04/11/2021 stent removal Encounter Details Date Type Department Care Team (Late st Contact Info) Description 04/11/2021 Telephone [facility] [address] [place] [address] Олег Kaiser MD [address] [place], [place] 6767[address] Appointment (stent removal ) Social History Tobacco [...] COVID-19? No / Unsure 04/07/2021 11:09 PM TRAINING ENGINEER documented as of this encounter Miscellaneous Notes * Telephone Encounter - Araceli Degroot - 04/11/2021 12:32 PM CST [facility] Call Center Phone Message May a detailed message be left on voicemail: yes Reason for Call: Other: . pt is calling to schedule his stent removal, he had a procedure with 04/08/2021, please call Alex to schedule, thank you Action Taken: Message routed to: Other: uro Travel Screening: Not Applicable NING ENGINEER documented in this encounter Plan of Treatment Upcoming Encounters Date Type Department Care Team (Late st Contact Info) Description 12/11/2023 7:30 AM CDT Office Visit [facility] [address] [place] [address] Loretta Elizalde PA-C [address] [place] [address] documented as of this encounter Visit Diagnoses Not on filedocumented in this encounter Care Teams Bit Shaver Relationship Specialty Start Date End Date Johnie Farmer PCP - General Family Practice 01/30/18 09/24/22 Loretta Elizalde PA-C [address] [place] [address] PCP - General Family Medicine 09/25/22 Олег Kaiser MD [address] [place] [address] Urology 04/05/21 Deven Schulte MD [address] [place] [address] 460035 Assigned Surgical Provider 04/23/21 Олег Kaiser MD [address] [place] [address] Assigned Surgical Provider 04/16/21 Loretta Elizalde PA-C [address] [place] [address] Assigned PCP 09/22/22 Олег Kaiser MD [address] [place] [address] 20359 Assigned Surgical Provider 09/22/2209/28/22 Deven Schulte MD [address] [place] [address] [id number] Assigned Surgical Provider 09/29/22 Dong Craft MD [address] [place] [address] [id number] MD Gómez 10/09/22 Dong Craft MD [address] [place] [address] Assigned Cancer Care Provider 11/24/22 05/24/23 Grazyna Damian CNP [address] [address] Assigned Cancer Care Provider 05/25/23 documented as of this encounter
--- OUTSIDE RECORDS SUMMARY | 2023-11-07 10:57 | XMS_ITS | Encounter Summary ---
Author Organization [place] Address [address] [facility] [place] [address] Care Team Providers Care Ship'S Cook Name Role Phone Олег Kaiser MD Unavailable [phone] Loretta Elizalde PA-C Unavailable [phone] Loretta Elizalde PA-C Primary Care Provider [phone] Dong Craft MD Unavailable [phone] Dong Craft MD Unavailable [phone] Grazyna Damian CNP Unavailable [phone] Encounter Details Date Type Department Care Team ([facility] Contact Info) Description 01/07/2023 [facility] [address] [address] Hallie Maria Social History Tobacco [...] Upcoming Encounters Date Type Department Care Team ([facility] Contact Info) Description 12/11/2023 7:30 AM CDT Office Visit [facility] [address] [place] [address] Loretta Elizalde PA-C [address] [place] [address] documented as of this encounter Visit Diagnoses Not on filedocumented in this encounter Additional Health Concerns Assessment Noted Time PHQ-9 Depression Total Score: 2 09/12/19 7:51 AM CDT documented as of this encounter Care Teams Ship'S Cook Relationship Specialty Start Date End Date Loretta Elizalde PA-C [address] [place] [address] PCP - General Family Medicine 09/25/22 Олег Kaiser MD [address] [place] [address] Urology 04/05/21 Loretta Elizalde PA-C [address] [place] [address] Assigned PCP 09/22/22 Dong Craft MD [address] [place] [address] 569455 Hematology 10/09/22 Dong Craft MD [address] [place] [address] [phone] Assigned Cancer Care Provider 11/24/22 05/24/23 Grazyna Damian CNP [address] [place] [address] 499655 Assigned Cancer Care Provider 05/25/23 documented as of this encounter
--- OUTSIDE RECORDS SUMMARY | 2023-11-07 10:57 | XMS_ITS | Encounter Summary ---
Author Organization [place] Address [address] [facility] [place] [address] Care Team Providers Care Senior Health Consultant Name Role Phone MarlenyJohnie Primary Care Provider [phone] Олег Kaiser MD Unavailable [phone] Deven Schulte MD Unavailable [phone] Loretta Elizalde PA-C Unavailable +[phone] Олег Kaiser MD Unavailable +[phone] Loretta Elizalde PA-C Primary Care Provider [phone] Deven Schulte MD Unavailable [phone] Dong Craft MD Unavailable [phone] Dong Craft MD Unavailable [phone] Grazyna Damian CNP Unavailable [phone] Encounter Details Date Type Department Care [...] COVID-19? No / Unsure 07/15/2021 6:20 PM CAR SCRUBBER documented as of this encounter Plan of Treatment Upcoming Encounters Date Type Department Care Team (Late st Contact Info) Description 12/11/2023 7:30 AM CDT Office Visit [facility] [address] [place] [address] Loretta Elizalde PA-C [address] [place] [address] documented as of this encounter Visit Diagnoses Not on filedocumented in this encounter Care Teams Senior Health Consultant Relationship Specialty Start Date End Date Johnie Farmer PCP - General Family Practice 01/30/18 09/24/22 Loretta Elizalde PA-C [address] [place] [address] PCP - General Family Medicine 09/25/22 Олег Kaiser MD [address] [place] [address] [id number] Urology 04/05/21 Deven Schulte MD [address] [place] [address] 317505 Assigned Surgical Provider 04/23/21 Loretta Elizalde PA-C [address] [place] [address] Assigned PCP 09/22/22 Олег Kaiser MD [address] [place] [address] 700715 Assigned Surgical Provider 09/22/2209/28/22 Deven Schulte MD [address] [place] [address] [id number] Assigned Surgical Provider 09/29/22 Dong Craft MD [address] [place] [address] [id number] MD Dalia 10/09/22 Dong Craft MD [address] [place] [address] [id number] Assigned Cancer Care Provider 11/24/22 05/24/23 Grazyna Damian CNP [address] [place] [address] [address] [place] [address] Assigned Cancer Care Provider 05/25/23 documented as of this encounter
--- OUTSIDE RECORDS SUMMARY | 2023-11-07 10:57 | XMS_ITS | Encounter Summary ---
Author Organization [place] Address [address] [facility] [place] [address] Care Team Providers Care Matrix Bath Attendant Name Role Phone [facility] Unavailable Jennifer Pond MD Primary Care Provider [facility] Primary Care Pro vider Dany Hirsch Primary Care Provider [phone] Johnie Farmer Primary Care Provider JobОлег bergeron MD Unavailable [phone] Deven Schulte MD Unavailable [phone] Олег Kaiser MD Unavailable [phone] Loretta Elizalde PA-C Unavailable [phone] Олег Kaiser MD Unavailable +[phone] Loretta Elizalde PA-C Primary Care Provider Deven Schulte MD Unavailable [phone] Dong Craft MD Unavailable [phone] Dong Craft MD Unavailable [phone] Grazyna Damian CNP Unavailable [phone] Encounter Details Date Type Department Care Team (Late st Contact Info) Description 10/13/2015 MyC Medical Advice [address] [address] Ruth Leigh LPN Social History Tobacco Use [...] Description 12/11/2023 7:30 AM CDT Office Visit [facility] [address] [place] [address] Loretta Elizalde PA-C [address] [place] [address] documented as of this encounter Visit Diagnoses Not on filedocumented in this encounter Additional Health Concerns Infection Onset Date Last Indicated Resolved Time Rule Out COVID-19 10/09/2019 10/09/2019 10/09/2019 9:36 PM CDT Rule Out COVID-19 11/20/2019 11/20/2019 11/21/2019 5:10 PM CDT Rule Out COVID-19 11/25/2019 11/25/2019 11/26/2019 4:41 PM CDT Rule Out COVID-19 04/18/2020 04/18/2020 04/18/2020 4:22 PM AIRCRAFT INSPECTION RECORD CLERK COVID-19 04/18/2020 04/18/2020 05/09/2020 11:4 0 PM AIRCRAFT INSPECTION RECORD CLERK documented as of this encounter Care Teams Matrix Bath Attendant Relationship Specialty Start Date End Date Jennifer Pond MD [address] [facility] [place] [address] PCP - General Internal Medicine 11/08/14 08/26/16 [facility] [address] [place], [place] 5377544 PCP - General 08/27/16 10/26/16 Dany Hirsch [address] [place] [address] PCP - General Family Practice 10/27/16 01/29/18 MarlenyJohnie [address] [place] [address] PCP - General Family Practice 01/30/18 09/24/22 Loretta Elizalde PA-C [address] [place] [address] PCP - General Family Medicine 09/25/[address] [id number] 06/14/11 08/26/16 Олег Kaiser MD [address] [place] [address] [phone] Urology 04/05/21 Deven Schulte MD [address] [place] [address] 568405 Assigned Surgical Provider 04/23/21 09/21/22 Олег Kaiser MD [address] [place] [address] Assigned Surgical Provider 04/16/21 04/22/21 Loretta Elizalde PA-C [address] [place] [address] Assigned PCP 09/22/22 Олег Kaiser MD [address] [place] [address] Assigned Surgical Provider 09/22/22 09/28/22 Deven Schulte MD [address] [place] [address] Assigned Surgical Provider 09/29/22 10/19/22 Dong Craft MD [address] [place] [address] MD Gómez 10/09/22 Dong Craft MD 9 [place] [address] Assigned Cancer Care Provider 11/24/22 05/24/23 Grazyna Damian, NORBERT [address] [place] [address] Assigned Cancer Care Provider 05/25/23 documented as of this encounter
--- OUTSIDE RECORDS SUMMARY | 2023-11-07 10:57 | XMS_ITS | Encounter Summary ---
Author Organization [place] Address [address] [facility] [place] [address] Care Team Providers Care Laboratory Immunologist Name Role Phone [facility] Unavailable Jennifer Pond MD Primary Care Provider [facility] Primary Care Pro vider Dany Hirsch Primary Care Provider Johnie Farmer Primary Care Provider JobОлег bergeron MD Unavailable [phone] Deven Schulte MD Unavailable [phone] Олег Kaiser MD Unavailable [phone] Loretta Elizalde PA-C Unavailable [phone] Олег Kaiser MD Unavailable +[phone] Loretta Elizalde PA-C Primary Care Provider Deven Schulte MD Unavailable [phone] Dong Craft MD Unavailable [phone] Dong Craft MD Unavailable [phone] Grazyna Damian CNP Unavailable [phone] Encounter Details Date Type Department Care Team (Late st Contact Info) Description 01/24/2015 MyC Medical Advice [address] [address] Ruth Leigh LPN Social History Tobacco Use [...] Description 12/11/2023 7:30 AM CDT Office Visit [facility] [address] [place] [address] Loretta Elizalde PA-C [address] [place] [address] documented as of this encounter Visit Diagnoses Not on filedocumented in this encounter Additional Health Concerns Infection Onset Date Last Indicated Resolved Time Rule Out COVID-19 10/09/2019 10/09/2019 10/09/2019 9:36 PM CDT Rule Out COVID-19 11/20/2019 11/20/2019 11/21/2019 5:10 PM CDT Rule Out COVID-19 11/25/2019 11/25/2019 11/26/2019 4:41 PM CDT Rule Out COVID-19 04/18/2020 04/18/2020 04/18/2020 4:22 PM ARC CUTTER COVID-19 04/18/2020 04/18/2020 05/09/2020 11:4 0 PM ARC CUTTER documented as of this encounter Care Teams Laboratory Immunologist Relationship Specialty Start Date End Date Jennifer Pond MD [address] [facility] [place] [address] PCP - General Internal Medicine 11/08/14 08/26/16 [facility] [address] [place], [place] [phone] PCP - General 08/27/16 10/26/16 Dany Hirsch [address] [place] [address] PCP - General Family Practice 10/27/16 01/29/18 MarlenyJohnie [address] [place] [address] PCP - General Family Practice 01/30/18 09/24/22 Loretta Elizalde PA-C [address] [place] [address] PCP - General Family Medicine 09/25/[address] [id number] 06/14/11 08/26/16 Олег Kaiser MD [address] [place] [address] 153805 Urology 04/05/21 Deven Schulte MD [address] [place] [address] [id number] Assigned Surgical Provider 04/23/21 09/21/22 Олег Kaiser MD [address] [place] [address] 19[address] Assigned Surgical Provider 04/16/21 04/22/21 Loretta Elizalde PA-C [address] [place] [address] Assigned PCP 09/22/22 Олег Kaiser MD 420 [place] [address] Assigned Surgical Provider 09/22/22 09/28/22 Deven Schulte MD [address] [place] [address] Assigned Surgical Provider 09/29/22 10/19/22 Dong Craft MD [address] [place] [address] MD Gómez 10/09/22 Dong Craft MD 9 [place] [address] Assigned Cancer Care Provider 11/24/22 05/24/23 Grazyna Damian, NORBERT [address] [place] [address] Assigned Cancer Care Provider 05/25/23 documented as of this encounter
--- OUTSIDE RECORDS SUMMARY | 2023-11-07 10:57 | XMS_ITS | Encounter Summary ---
Author Organization [place] Address [address] [facility] [place] [address] Care Team Providers Care Investigation Officer Name Role Phone Олег Kaiser MD Unavailable [phone] Loretta Elizalde PA-C Unavailable [phone] Loretta Elizalde PA-C Primary Care Provider [phone] Dong Craft MD Unavailable [phone] Dong Craft MD Unavailable [phone] Grazyna Damian CNP Unavailable [phone] Encounter Details Date Type Department Care Team (Late st Contact Info) Description 03/25/2023 [facility]C [facility]ice [facility] [address] [place] [address] Faith Cano Social History Tobacco [...] Description 12/11/2023 7:30 AM CDT [facility] [address] [place] [address] Loretta Elizalde PA-C [address] [place] [address] documented as of this encounter Visit Diagnoses Not on filedocumented in this encounter Additional Health Concerns Assessment Noted Time PHQ-9 Depression Total Score: 2 09/12/19 23 7:51 AM CDT documented as of this encounter Care Teams Investigation Officer Relationship Specialty Start Date End Date Loretta Elizalde PA-C [address] [place] [address] PCP - General Family Medicine 09/25/22 Олег Kaiser MD [address] [place] [address] [phone] Urology 04/05/21 Loretta Elizalde PA-C [address] [place] [address] Assigned PCP 09/22/22 Dong rCaft MD [address] [place] [address] 539695 Hematology 10/09/22 Dong Craft MD [address] [place] [address] Assigned Cancer Care Provider 11/24/22 05/24/23 Grazyna Damian CNP [address] [place] [address] Assigned Cancer Care Provider 05/25/23 documented as of this encounter
--- OUTSIDE RECORDS SUMMARY | 2023-11-07 10:57 | XMS_ITS | Encounter Summary ---
Author Organization [place] Address [address] [facility] [place] [address] Care Team Providers Care Motor Setter Name Role Phone [facility] Unavailable Jennifer Pond MD Primary Care Provider [facility] Primary Care Pro vider Dany Hirsch Primary Care Provider [phone] Johnie Farmer Primary Care Provider [phone] JobОлег bergeron MD Unavailable [phone] Deven Schulte MD Unavailable [phone] Олег Kaiser MD Unavailable [phone] Loretta Eilzalde PA-C Unavailable [phone] Олег Kaiser MD Unavailable +[phone] Loretta Elizalde PA-C Primary Care Provider Deven Schulte MD Unavailable [phone] Dong Craft MD Unavailable [phone] Dong Craft MD Unavailable [phone] Grazyna Damian CNP Unavailable [phone] Encounter Details Date Type Department Care Team (Late st Contact Info) Description 10/13/2015 MyC Medical Advice [address] [address] Ruth Leigh LPN Social History Tobacco Use [...] 7:30 AM CDT Office Visit [facility] [address] [place] [address] Loretta Elizalde PA-C [address] [place] [address] documented as of this encounter Visit Diagnoses Not on filedocumented in this encounter Additional Health Concerns Infection Onset Date Last Indicated Resolved Time Rule Out COVID-19 10/09/2019 10/09/2019 10/09/2019 9:36 PM CDT Rule Out COVID-19 11/20/2019 11/20/2019 11/21/2019 5:10 PM CDT Rule Out COVID-19 11/25/2019 11/25/2019 11/26/2019 4:41 PM CDT Rule Out COVID-19 04/18/2020 04/18/2020 04/18/2020 4:22 PM DIRECTOR MACHINE COVID-19 04/18/2020 04/18/2020 05/09/2020 11:4 0 PM DIRECTOR MACHINE documented as of this encounter Care Teams Motor Setter Relationship Specialty Start Date End Date Jennifer Pond MD [address] [facility] [place] [address] PCP - General Internal Medicine 11/08/14 08/26/16 [facility] [address] [place], [place] 5486044 PCP - General 08/27/16 10/26/16 Dany Hirsch [address] [place] [address] PCP - General Family Practice 10/27/16 01/29/18 MarlenyJohnie [address] [place] [address] PCP - General Family Practice 01/30/18 09/24/22 Loretta Elizalde PA-C [address] [place] [address] PCP - General Family Medicine 09/25/[address] [id number] 06/14/11 08/26/16 Олег Kaiser MD [address] [place] [address] 340465 Urology 04/05/21 Deven Schulte MD [address] [place] [address] 330045 Assigned Surgical Provider 04/23/21 09/21/22 Олег Kaiser MD [address] [place] [address] Assigned Surgical Provider 04/16/21 04/22/21 Loretta Elizalde PA-C [address] [place] [address] Assigned PCP 09/22/22 Олег Kaiser MD 420 [place] [address] Assigned Surgical Provider 09/22/22 09/28/22 Deven Schulte MD [address] [place] [address] Assigned Surgical Provider 09/29/22 10/19/22 Dong Craft MD [address] [place] [address] MD Gómez 10/09/22 Dong Craft MD 9 [place] [address] Assigned Cancer Care Provider 11/24/22 05/24/23 Grazyna Damian, NORBERT [address] [place] [address] Assigned Cancer Care Provider 05/25/23 documented as of this encounter
--- OUTSIDE RECORDS SUMMARY | 2023-11-07 10:58 | XMS_ITS | Encounter Summary ---
Author Organization [place] Address [address] [facility] [place] [address] Care Team Providers Care Qc Scientist Name Role Phone [facility] Unavailable Kate Bradley PA-C Primary Care Pro [facility]ider [facility] Isak calderon Jennifer Pond MD Primary Care Provider [facility] Primary Care Pro vider Dany Hirsch Primary Care Provider [phone] Johnie Farmer Primary Care Provider [phone] Олег Kaiser MD Unavailable [phone] Deven Schulte MD Unavailable [phone] Олег Kaiser MD Unavailable +[phone] Loretta Elizalde PA-C Unavailable [phone] Олег Kaiser MD Unavailable +[phone] Loretta Elizalde PA-C Primary Care Provider [phone] Deven Schulte MD Unavailable [phone] Dong Craft MD Unavailable [phone] Dong Craft MD Unavailable [phone] Grazyna Damian AERODYNAMIC CONSULTANT Unavailable [phone] Encounter Details Date Type Department Care Team (Late st Contact Info) Description 10/22/2013 MyC Medical Advice [facility] [address] [place] [address] Kate Bradley PA-C [facility] [address] [place] [address] Social History Tobacco Use Types Packs/Day Years [...] Description 12/11/2023 7:30 AM CDT Office Visit [facility] [address] [place] [address] Loretta Elizalde PA-C [address] [place] [address] documented as of this encounter Visit Diagnoses Not on filedocumented in this encounter Additional Health Concerns Infection Onset Date Last Indicated Resolved Time Rule Out COVID-19 10/09/2019 10/09/2019 10/09/2019 9:36 PM CDT Rule Out COVID-19 11/20/2019 11/20/2019 11/21/2019 5:10 PM CDT Rule Out COVID-19 11/25/2019 11/25/2019 11/26/2019 4:41 PM CDT Rule Out COVID-19 04/18/2020 04/18/2020 04/18/2020 4:22 PM CATERING SALES MANAGER COVID-19 04/18/2020 04/18/2020 05/09/2020 11:4 0 PM CATERING SALES MANAGER documented as of this encounter Care Teams Qc Scientist Relationship Specialty Start Date End Date Kate Bradley PA-C [address] [place] [address] PCP - General Family Practice 09/22/13 10/27/14 [facility] [address] [facility] [place] [address] PCP - General 10/28/14 11/07/14 Jennifer Pond MD [address] [facility] [place] [address] PCP - General Internal Medicine 11/08/14 08/26/16 [facility] [address] [place] [address] PCP - General 08/27/16 10/26/16 Dany Hirsch [address] [place] [address] PCP - General Family Practice 10/27/16 01/29/18 Johnie Farmer [address] [place] [address] PCP - General Family Practice 01/30/18 09/24/22 Loretta Elizalde PA-C [address] [place] [address] PCP - General Family Medicine 09/25/22 [facility] [address] [place] [address] 06/14/11 08/26/16 Олег Kaiser MD [address] [place] [address] Urology 04/05/21 Deven Schulte MD [address] [place] [address] Assigned Surgical Provider 04/23/21 09/21/22 Олег Kaiser MD [address] [place] [address] Assigned Surgical Provider 04/16/21 04/22/21 Loretta Elizalde PA-C [address] [place] [address] Assigned PCP 09/22/22 Олег Kaiser MD [address] [place] [address] Assigned Surgical Provider 09/22/22 09/28/22 Deven Schulte MD [address] [place] [address] Assigned Surgical Provider 09/29/22 10/19/22 Dong Craft MD [address] [place] [address] MD Gómez 10/09/22 Dong Craft MD [address] [place] [address] Assigned Cancer Care Provider 11/24/22 05/24/23 Grazyna Damian CNP [address] [place] [address] Assigned Cancer Care Provider 05/25/23 documented as of this encounter
--- OUTSIDE RECORDS SUMMARY | 2023-11-07 10:58 | XMS_ITS | Clinical Summary ---
Author Organization [employer] [facility] [employer] Address [place], [place] [address] Care Team Providers Care Sports Marketing Specialist Name Role Phone [place] Primary Care Provider + Yaya Park MD [...] 30 tablet 0 04/30/2014 Active albuterol HFA (PRO-AIR,VENTOLIN,OR OVENTIL) 90 mcg/actuation inhaler Inhale 2 Puffs [...] Procedure Code(s): ? --- Professional --- ? 45621, Esophagogastroduodenoscopy, flexible, transoral; diagnostic, ? including collection of specimen(s) by brushing or washing, when ? performed (separate procedure) Diagnosis Code(s): ? --- Professional --- ? Z98.84, Bariatric surgery status ? R10.13, Epigastric pain CPT copyright 2016 [employer]. All rights reserved. The codes documented in this report are preliminary and upon manager product review may be revised to meet current compliance requirements. MD Boaz Carrion Jr., MD 10/03/2018 11:34:49 AM Number of Addenda: 0 Note Initiated On: 10/03/2018 11:02 AM ? [address] ? [place] [address] Other Result Information Interface, Nmhcradordrslt In - 10/03/2018 11:34 AM CDT [facility] Patient Name: Alex Goodwin Procedure [...] area pain Procedure Code(s): --- Professional --- 96830, Esophagogastroduodenoscopy, flexible, transoral; diagnostic, including collection of specimen(s) by brushing or washing, when performed (separate procedure) Diagnosis Code(s): --- Professional --- Z98.84, Bariatric surgery status R10.13, Epigastric pain CPT copyright 2016 [employer]. All rights reserved. The codes documented in this report are preliminary and upon manager product review may be revised to meet current compliance requirements. MD Boaz Carrion Jr., MD 10/03/2018 11:34:49 AM Problem Noted Date Diagnosed Date S/P Laparoscopic Jarrett-en-Y g astric bypass 07/03/[address] Diaz Prince 12/18/2018 Altered mental status 07/03/2014 Alcohol dependency 04/29/2014 Alcohol intoxication 04/29/2014 Major depression, recurrent 09/26/2013 Overview: H/o overdose attempt (2006), hospitalized at [facility]'s 2009 Marital or partner relational problem 09/26/2013 [...] T Respiratory Rate 20 06/06/2018 5:42 AM APPLICATION DESIGNER Oxygen Saturation 98% 06/06/2018 6:00 AM APPLICATION DESIGNER Inhaled Oxygen Concentration - - Weight 101.6 [...] (BBF) ANTI HCV Timed 07/04/2005 2:15 AM APPLICATION DESIGNER from Last 3 Months or Most Recently Relevant to Health Maintenance Results * PATIENT SOURCE ANTI HCV (07/04/2005 2:15 AM APPLICATION DESIGNER) SOURCE ANTI HCV Non-reacti ve [facility] 07/04/2005 2:15 AM APPLICATION DESIGNER 07/03/2005 10:00 PM APPLICATION DESIGNER Narrative [facility] - 07/07/2005 1:49 PM APPLICATION DESIGNER Testing Performed By [place], [place] Diaz Pirnce MD SEND OUTS [facility] [address] [place] [address] from Last 3 Months or Most Recently Relevant to Health Maintenance Advance Directives * Full Code (Latest Code Status on File) Date Activated Date Inactivated Comments 07/03/2014 4:23 AM 07/03/2014 5:24 PM * Full Code Date Activated Date Inactivated Comments 04/29/2014 11:19 AM 04/30/2014 4:13 PM * Full Code Date Activated Date Inactivated Comments 09/25/2013 9:03 PM 09/28/2013 6:39 PM Care Teams Sports Marketing Specialist Relationship Specialty Start Date End Date [facility] [address] [place] [address] PCP - General 08/27/16 Yaya Park MD [address] [facility] [address] [place] [address] Consulting Physician Surgery - General 01/14/[address] [place] [address] Registered Dietitian Manager Of Distribution 01/06/19 Monique Encinas NP [address] [place] [address] Consulting Physician Nurse Practitioner 01/06/19
--- OUTSIDE RECORDS SUMMARY | 2023-11-07 10:58 | XMS_ITS | Encounter Summary ---
Author Organization [facility] Address [address], [place] [address] Care Team Providers Care Woodyard Crane Operator Name Role Phone Johnie Farmer MD Primary Care Provider [phone] Encounter Details Date Type Department Care Team [...] R/O COVID19 04/18/2020 04/18/2020 04/19/2020 5:02 PM IT APPLICATIONS DEVELOPER COVID19 04/18/2020 04/18/2020 05/09/2020 3:17 AM IT APPLICATIONS DEVELOPER documented as of this encounter Care Teams Woodyard Crane Operator Relationship Specialty [place] [address] [place] [address] PCP - General Family Practice 01/30/18 documented as of this encounter
--- OUTSIDE RECORDS SUMMARY | 2023-11-07 10:58 | XMS_ITS | Encounter Summary ---
Author Organization [facility] Address [address] [address] Care Team Providers Care Body Service Team Member Name Role Phone Johnie Farmer MD Primary Care Provider [phone] Encounter Details Date Type Department Care Team [...] Funes, Provider - 04/03/2013 12:00 AM CST ANICAL MAINTENANCE documented in this encounter Plan of Treatment Not on file documented as of this encounter Visit Diagnoses Not on filedocumented in this encounter Additional Health Concerns Infection Onset Date Last Indicated Resolved Time R/O COVID19 04/18/2020 04/18/2020 04/19/2020 5:02 PM MECHANICAL MAINTENANCE COVID19 04/18/2020 04/18/2020 05/09/2020 3:17 AM MECHANICAL MAINTENANCE documented as of this encounter Care Teams Body Service Team Member Relationship Specialty [place] [address] [place] [address] PCP - General Family Practice 01/30/18 documented as of this encounter
--- OUTSIDE RECORDS SUMMARY | 2023-11-07 10:58 | XMS_ITS | Encounter Summary ---
Author Organization [facility] Address [address] [address] Care Team Providers Care Stationary Boiler Fireman Name Role Phone Johnie Farmer MD Primary Care Provider [phone] Encounter Details Date Type Department Care Team [...] R/O COVID19 04/18/2020 04/18/2020 04/19/2020 5:02 PM PIT CRANE OPERATOR COVID19 04/18/2020 04/18/2020 05/09/2020 3:17 AM PIT CRANE OPERATOR documented as of this encounter Care Teams Stationary Boiler Fireman Relationship Specialty [place] [address] [place] [address] PCP - General Family Practice 01/30/18 documented as of this encounter
--- OUTSIDE RECORDS SUMMARY | 2023-11-07 10:58 | XMS_ITS | Clinical Summary ---
Author Organization [facility] Address [address] [place] [address] Care Team Providers Care Talent Advisor Name Role Phone Johnie Farmer Primary Care Provider [phone] Clinic, Not Listed Unavailable Unavailable Allergies No [...] 09/22/2013 S/P gastric bypass 06/25/2008 Overview: ~2001, [facility], Dr Zhou? Social History Tobacco [...] 8.2(H) <5.7 % 10/03/2018 12:22 PM CDT [facility] EAG (EST. AVERAGE GLUCOSE) 189(H) <117 mg/dL 10/03/2018 12:22 PM CDT [facility] Blood 10/03/2018 6:46 AM CDT 10/03/2018 7:16 AM CDT Peggy Caba MD CHEMISTRY ORDERABLE [facility] [address] [place] [address] * (ABNORMAL) Basic Metabolic Profile (10/02/2018 1:35 PM CDT) Pathologist [facility] Sodium 141 136 - 145 mmol/L 10/02/2018 2:09 PM CDT [facility] Potassium 3.8 3.5 - 5.1 mmol/L 10/02/2018 2:09 PM T [facility] Chloride 110 98 - 112 mmol/L 10/02/2018 2:09 PM T [facility] Carbon Dioxide 24 21 - 32 mmol/L 10/02/2018 2:09 PM T [facility] BUN (Urea Nitro) 8 7 - 24 mg/dL 10/02/2018 2:09 PM CDT [facility] Creatinine 0.96 0.70 - 1.30 mg/dL 10/02/2018 2:09 PM CDT [facility] Est GFR (CKD-EPI) >60 >60 mL/min 10/02/2018 2:09 PM CDT [facility] EST GFR IF AM >60 >60 mL/min 10/02/2018 2:09 PM CDT [facility] Glucose 113(H) 74 - 106 mg/dL 10/02/2018 2:09 PM CDT [facility] Calcium, Serum 7.8(L) 8.5 - 10.1 mg/dL 10/02/2018 2:09 PM CDT [facility] Anion Gap 7.0 0.0 - 15.0 mmol/L 10/02/2018 2:09 PM CDT [facility] Blood 10/02/2018 1:35 PM CDT 10/02/2018 1:45 PM CDT Linn Jesus PA-C CHEMISTRY ORDERABLE [facility] [address] [place] [address] from Last 3 Months or Most Recently Relevant to Health Maintenance Advance Directives For more information, please contact: [phone] * Full Code (Latest Code Status on File) Date Activated Date Inactivated Comments 10/02/2018 6:16 PM 10/03/2018 10:01 PM Question Answer Comments How was code status determined? Patient Care Teams Talent Advisor Relationship Specialty Start Date End Date Johnie Farmer [address] [place] [address] PCP - General Family Medicine 09/30/18 Clinic, Not Listed PCP - Primary Care Clinic 12/25/19
--- OUTSIDE RECORDS SUMMARY | 2023-11-07 10:58 | XMS_ITS | Referral Summary ---
Author Organization [facility] Address [address] [place] [address] Care Team Providers Care Clinical Nutritionist Name Role Phone Johnie Farmer Primary Care Provider [phone] Clinic, Not Listed Unavailable Unavailable Allergies No [...] 09/22/2013 S/P gastric bypass 06/25/2008 Overview: ~2001, [facility], Dr Zhou? Social History Tobacco [...] HGB) 8.2(H) <5.7 % 10/03/2018 12:[address] [facility] EAG (EST. AVERAGE GLUCOSE) 189(H) <117 mg/dL 10/03/2018 12:[address] [facility] Blood 10/03/2018 6:46 AM CDT 10/03/2018 7:16 AM CDT Peggy Caba MD CHEMISTRY ORDERABLE [facility] [address] [place] [address] * (ABNORMAL) Basic Metabolic Profile (10/02/2018 1:35 PM CDT) Sodium 141 136 - 145 mmol/L 10/02/2018 2:[address] [facility] Potassium 3.8 3.5 - 5.1 mmol/L 10/02/2018 2:[address] [facility] Chloride 110 98 - 112 mmol/L 10/02/2018 2:[address] [facility] Carbon Dioxide 24 21 - 32 mmol/L 10/02/2018 2:[address] [facility] BUN (Urea Nitro) 8 7 - 24 mg/dL 10/02/2018 2:[address] [facility] Creatinine 0.96 0.70 - 1.30 mg/dL 10/02/2018 2:[address] [facility] Est GFR (CKD-EPI) >60 >60 mL/min 10/02/2018 2:[address] [facility] EST GFR IF AM >60 >60 mL/min 10/02/2018 2:[address] [facility] Glucose 113(H) 74 - 106 mg/dL 10/02/2018 2:[address] [facility] Calcium, Serum 7.8(L) 8.5 - 10.1 mg/dL 10/02/2018 2:[address] [facility] Anion Gap 7.0 0.0 - 15.0 mmol/L 10/02/2018 2:[address] [facility] Blood 10/02/2018 1:35 PM CDT 10/02/2018 1:45 PM CDT Linn Jesus PA-C CHEMISTRY ORDERABLE [facility] [address] [place] [address] from Last 3 Months or Most Recently Relevant to Health Maintenance Advance Directives For more information, please contact: [phone] * Full Code (Latest Code Status on File) Date Activated Date Inactivated Comments 10/02/2018 6:16 PM 10/03/2018 10:01 PM Question Answer Comments How was code status determined? Patient Care Teams Clinical Nutritionist Relationship Specialty Start Date End Date Johnie Farmer [address] [place] [address] PCP - General Family Medicine 09/30/18 Clinic, Not Listed PCP - Primary Care Clinic 12/25/19
--- OUTSIDE RECORDS SUMMARY | 2023-11-07 10:58 | XMS_ITS | Encounter Summary ---
Author Organization [facility] Address [address] [address] Care Team Providers Care Negative Developer Name Role Phone Johnie Farmer MD Primary Care Provider [phone] Encounter Details Date Type Department Care Team [...] R/O COVID19 04/18/2020 04/18/2020 04/19/2020 5:02 PM AIRPORT SKILLED MAINTENANCE SUPERVISOR COVID19 04/18/2020 04/18/2020 05/09/2020 3:17 AM AIRPORT SKILLED MAINTENANCE SUPERVISOR documented as of this encounter Care Teams Negative Developer Relationship Specialty [place] [address] [place] [address] PCP - General Family Practice 01/30/18 documented as of this encounter
--- OUTSIDE RECORDS SUMMARY | 2023-11-07 10:58 | XMS_ITS | Encounter Summary ---
Author Organization [facility] Address [address] [address] Care Team Providers Care Master Technician Name Role Phone Johnie Farmer MD Primary Care Provider [phone] Encounter Details Date Type Department Care Team (Late st Contact Info) Description 09/27/2013 Outside Hospital External to [facility], Provider CONSULT Social History Tobacco Use Types [...] R/O COVID19 04/18/2020 04/18/2020 04/19/2020 5:02 PM MATURITY CHECKER COVID19 04/18/2020 04/18/2020 05/09/2020 3:17 AM MATURITY CHECKER documented as of this encounter Care Teams Master Technician Relationship Specialty [place] [address] [place] [address] PCP - General Family Practice 01/30/18 documented as of this encounter
--- OUTSIDE RECORDS SUMMARY | 2023-11-07 10:58 | XMS_ITS | Encounter Summary ---
Author Organization [facility] Address [address] [place] [address] Care Team Providers Care Card Feeder Name Role Phone Johnie Farmer MD Primary Care Provider [phone] Encounter Details Date Type Department Care Team (Late st Contact Info) Description 09/25/2013 Emergency Room External to [facility], Provider DEPRESSION Social History Tobacco Use Types [...] R/O COVID19 04/18/2020 04/18/2020 04/19/2020 5:02 PM SQL SSRS SSIS DEVELOPER COVID19 04/18/2020 04/18/2020 05/09/2020 3:17 AM SQL SSRS SSIS DEVELOPER documented as of this encounter Care Teams Card Feeder Relationship Specialty [place] [address] [place] [address] PCP - General Family Practice 01/30/18 documented as of this encounter
--- OUTSIDE RECORDS SUMMARY | 2023-11-07 10:58 | XMS_ITS | Encounter Summary ---
Author Organization [facility] Address [address], [place] [address] Care Team Providers Care Occupational Health And Safety Officer Name Role Phone Johnie Farmer MD Primary Care Provider [phone] Encounter Details Date Type Department Care Team (Late st Contact Info) Description 09/26/2013 Outside Hospital External to [facility], Provider HISTORY PHYSICAL Social History Tobacco Use [...] R/O COVID19 04/18/2020 04/18/2020 04/19/2020 5:02 PM EXECUTIVE TEAM LEADER COVID19 04/18/2020 04/18/2020 05/09/2020 3:17 AM EXECUTIVE TEAM LEADER documented as of this encounter Care Teams Occupational Health And Safety Officer Relationship Specialty [place] [address] [place] [address] PCP - General Family Practice 01/30/18 documented as of this encounter
--- OUTSIDE RECORDS SUMMARY | 2023-11-07 10:58 | XMS_ITS | Encounter Summary ---
Author Organization [facility] Address [address] [facility] [place] [address] Care Team Providers Care Patrol Deputy Sheriff Name Role Phone [facility] Unavailable Kate Bradley PA-C Primary [facility] Primary Care Isak calderon Jennifer Pond MD Primary Care Provider [facility] Primary Care Pro vider Dany Hirsch Primary Care Provider [phone] Johnie Farmer Primary Care Provider [phone] Олег Kaiser MD Unavailable [phone] Deven Schulte MD Unavailable [phone] Олег Kaiser MD Unavailable +[phone] Loretta Elizalde PA-C Unavailable [phone] Олег Kaiser MD Unavailable +[phone] Loretta Elizalde PA-C Primary Care Provider [phone] Deven Schulte MD Unavailable [phone] Dong Craft MD Unavailable [phone] Dong Craft MD Unavailable [phone] Grazyna Damian [facility] Unavailable [phone] Encounter Details Date Type Department Care Team (Late st Contact Info) Description 10/19/2014 MyC Medical Advice [facility] [address] [place] [address] [facility] Social History Tobacco Use Types Packs/Day Years [...] Description 12/11/2023 7:30 AM CDT Office Visit [facility] [address] [place] [address] Loretta Elizalde PA-C [address] [place] [address] documented as of this encounter Visit Diagnoses Not on filedocumented in this encounter Additional Health Concerns Infection Onset Date Last Indicated Resolved Time Rule Out COVID-19 10/09/2019 10/09/2019 10/09/2019 9:36 PM CDT Rule Out COVID-19 11/20/2019 11/20/2019 11/21/2019 5:10 PM CDT Rule Out COVID-19 11/25/2019 11/25/2019 11/26/2019 4:41 PM CDT Rule Out COVID-19 04/18/2020 04/18/2020 04/18/2020 4:22 PM DAY HABILITATION SUPERVISOR COVID-19 04/18/2020 04/18/2020 05/09/2020 11:4 0 PM DAY HABILITATION SUPERVISOR documented as of this encounter Care Teams Patrol Deputy Sheriff Relationship Specialty Start Date End Date Kate Bradley PA-C [address] [place] [address] PCP - General Family Practice 09/22/13 10/27/14 Clinic - Jaylen Vargas [facility] [address] [facility] [place] [address] PCP - General 10/28/14 11/07/14 Jennifer Pond MD [address] [facility] [place] [address] PCP - General Internal Medicine 11/08/14 08/26/16 [facility] [address] [place] [address] PCP - General 08/27/16 10/26/16 Dany Hirsch [address] [place] [address] PCP - General Family Practice 10/27/16 01/29/18 Johnie Farmer [address] [place] [address] PCP - General Family Practice 01/30/18 09/24/22 Loretta Elizalde PA-C [address] [place] [address] PCP - General Family Medicine 09/25/22 [facility] [address] [place] [address] 06/14/11 08/26/16 Олег Kaiser MD [address] [place] [address] Urology 04/05/21 Deven Schulte MD [address] [place] [address] Assigned Surgical Provider 04/23/21 09/21/22 Олег Kaiser MD [address] [place] [address] Assigned Surgical Provider 04/16/21 04/22/21 Loretta Elizalde PA-C [address] [place] [address] Assigned PCP 09/22/22 Олег Kaiser MD [address] [place] [address] Assigned Surgical Provider 09/22/22 09/28/22 Deven Schulte MD [address] [place] [address] Assigned Surgical Provider 09/29/22 10/19/22 Dong Craft MD [address] [place] [address] [facility] 10/09/22 Dong Craft MD [address] [place] [address] Assigned Cancer Care Provider 11/24/22 05/24/23 Grazyna Damian CNP [address] [place] [address] Assigned Cancer Care Provider 05/25/23 documented as of this encounter
--- OUTSIDE RECORDS SUMMARY | 2023-11-07 10:58 | XMS_ITS | Encounter Summary ---
Author Organization [facility] Address [address] [place] [address] Care Team Providers Care Magazine Writer Name Role Phone Johnie Farmer MD Primary Care Provider [phone] Encounter Details Date Type Department Care Team (Late st Contact Info) Description 09/28/2013 Outside Hospital External to [facility], Provider DISCHARGE SUMMARY Social History Tobacco [...] R/O COVID19 04/18/2020 04/18/2020 04/19/2020 5:02 PM UPPER MARKER COVID19 04/18/2020 04/18/2020 05/09/2020 3:17 AM UPPER MARKER documented as of this encounter Care Teams Magazine Writer Relationship Specialty [place] [address] [place] [address] PCP - General Family Practice 01/30/18 documented as of this encounter
--- OUTSIDE RECORDS SUMMARY | 2023-11-07 10:58 | XMS_ITS | Clinical Summary ---
Author [facility] Address [address] [place] [address] Care Team Providers Care Drywall Sander Name Role Phone MarlenyJohnie MD Primary Care Provider [phone] Source Comments You are receiving this document [...] for each transition of care or referral. [employer] Allergies Active Allergy Reactions Criticality Noted Date [...] Tablet 3 12/19/2018 Active Continuous Blood Gluc Copy Center Associate (FREESTYLE SHIRLENE 14 DAY READER) DEVIIndications:Unco ntrolled [...] left upper extremity 09/05/2017 05/19/2018 [facility] 12/11/1901/02/2012 Overview: Background: Diagnosis: Episodic Mood Dis, Alcohol Dep, Adjustment Dis. Current situation: Patient in need of provider to evaluate and manage his medications and possible BH therapy. Providers outside of [facility]: none known of. Goals/Recommendations: Outpatient Behavioral Health Corrugator OperatorCentral Aisle Cashier Information: Sheri Chandler [facility] Action Plan: Assisted patient in scheduling 11/09/11 intake appointment with JELANI Momin at [facility] - patient didn't attend. Plan is to [...] series) 04/11/2012,05/12/2010,02/09/2010 Influenza IIV4 (Quadrivalent ) 0.5mL (13502) 02/12/2018,04/02/2017,02/09/2016,2013 Influenza, Unspecified Formulation 03/15/2019 PPSV23 (Pneumovax) [...] Comments Blood Pressure 150/89 04/18/2020 8:08 AM MS SQL DEVELOPER Pulse 110 04/18/2020 8:08 AM MS SQL DEVELOPER Temperature 36.7 ??C (98 ??F) 04/18/2020 8:08 AM MS SQL DEVELOPER Respiratory Rate 20 04/18/2020 8:08 AM MS SQL DEVELOPER Oxygen Saturation 100% 04/18/2020 8:08 AM MS SQL DEVELOPER Inhaled Oxygen Concentration - - Weight 105.7 kg (233 lb) 07/13/2019 4:53 PM MS SQL DEVELOPER Height 174 cm (5' 8.5) 07/13/2019 4:53 PM MS SQL DEVELOPER Body Mass Index 34.91 07/13/2019 4:53 PM MS SQL DEVELOPER Plan of Treatment Health Maintenance Due Date [...] CREATININE / GFR Routine 07/27/2019 5:06 PM MS SQL DEVELOPER Preoperative examination HGB A1C Routine 07/13/2019 5:40 PM MS SQL DEVELOPER Uncontrolled type 2 diabetes mellitus with hyperglycemia (HRC) ALBUMIN/CREAT RATIO Routine 04/27/2019 6 :26 PM MS SQL DEVELOPER Uncontrolled type 2 diabetes mellitus with hyperglycemia (HRC) LIPID PANEL & DIRECT LDL (IF NEEDED) Routine 02/12/2018 4:56 PM CDT Uncontrolled type 2 diabetes mellitus without complication, 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RC) from Last 3 Months or Most Recently Relevant to Health Maintenance Results * Creatinine / GFR (07/27/2019 5:06 PM MS SQL DEVELOPER) Creatinine 1.10 0.73 - 1.18 mg/dL 07/27/2019 8:51 PM MS SQL DEVELOPER [facility] GFR, Estimated >60 >60 mL/min/1.7 3m2 07/27/2019 8:51 PM MS SQL DEVELOPER [facility] GFR, Est If >60 >60 mL/min/1.7 3m2 07/27/2019 8:51 PM MS SQL DEVELOPER [facility] Blood Venipuncture / Unknown 07/27/2019 5:06 PM MS SQL DEVELOPER 07/27/2019 5:06 PM MS SQL DEVELOPER Johnie Farmer MD LAB_1 [facility] [address] [place] [address], [facility] [phone] * (ABNORMAL) Hemoglobin A1C Glycosylated (07/13/2019 5:40 PM MS SQL DEVELOPER) Hemoglobin A1C 7.1(H) <=5.6 % 07/14/2019 10:39 AM MS SQL DEVELOPER [facility] Blood Venipuncture / Unknown 07/13/2019 5:40 PM MS SQL DEVELOPER 07/13/2019 5:40 PM MS SQL DEVELOPER Narrative [facility] - 07/14/2019 10:39 AM MS SQL DEVELOPER For patients not previously diagnosed with diabetes: 5.7-6.4%: Increased risk for diabetes 6.5% and greater: Diagnostic for diabetes For patients diagnosed with diabetes: <8.0%: Goal of therapy for ages 18-75 Clinicians may recommend a higher or lower goal for specific individuals. Johnie Farmer MD LAB_1 Performing Organization Address City/State/[facility] Co de Phone Number [facility] [address] [place] [address], [facility] * (ABNORMAL) Microalbumin Urine Random (UMAR) (04/27/2019 6:26 PM MS SQL DEVELOPER) Albumin, Urine, Random 56.7 mg/L 04/27/2019 9:21 PM MS SQL DEVELOPER [facility] Creatinine, Urine, Random 150 >20 mg/dL 04/27/2019 9:21 PM MS SQL DEVELOPER [facility] Albumin/Creati nine Ratio, Urine, Random 38(H) <30 mg/g 04/27/2019 9:21 PM MS SQL DEVELOPER [facility] Urine,random 04/27/2019 6:26 PM MS SQL DEVELOPER 04/27/2019 6:26 PM MS SQL DEVELOPER Johnie Farmer MD LAB_1 Performing Organization Address [facility] de Phone Number [facility] [address] [place] [address] [phone] * Lipid Panel - LDLD If Trig [...] - 02/12/2018 8:47 PM CDT Performed at [facility], [address] [place] [address] CLIA number [id number] Dany Hirsch MD LAB_1 Performing Organization Address [facility]/ZIP Co de Phone Number [facility] [address] [place] [address] from Last 3 Months or Most Recently Relevant to Health Maintenance Advance Directives * Full Code (Latest Code Status on File) Date Activated Date Inactivated Comments 02/28/2018 10:40 PM 03/01/2018 7:00 PM * Full Code Date Activated Date Inactivated Comments 10/27/2011 11:11 AM 10/30/2011 3:43 PM * Full Code Date Activated Date Inactivated Comments 01/03/2010 12:56 AM 01/04/2010 1:26 PM Care Teams Drywall Sander Relationship Specialty [place] [address] [place] [address] PCP - General Family Practice 01/30/18
--- OUTSIDE RECORDS SUMMARY | 2023-11-07 10:58 | XMS_ITS | Encounter Summary ---
Author Organization [facility] Address [address] [facility] [place] [address] Care Team Providers Care Office Workforce Planner Name Role Phone [facility] Unavailable Kate Bradley PA-C Primary Care Pro vider [facility] Primary Care Isak calderon Jennifer Pond MD Primary Care Provider [facility] Pro vider Dany Hirsch Primary Care Provider [phone] Johnie Farmer Primary Care Provider [phone] Олег Kaiser MD Unavailable [phone] Deven Schulte MD Unavailable [phone] Олег Kaiser MD Unavailable +[phone] Loretta Elizalde PA-C Unavailable [phone] Олег Kaiser MD Unavailable +[phone] Loretta Elizalde PA-C Primary Care Provider [phone] Deven Schulte MD Unavailable [phone] Dong Craft MD Unavailable [phone] Dong Craft MD Unavailable [phone] Grazyna Damian [facility] Unavailable [phone] Reason for Visit * Reason Comments Medication Refill Encounter Details Date Type Department Care Team (Late st Contact Info) Description 07/28/2014 Refill [facility] [address] [place] [address] Kate Bradley PA-C [facility] [address], [facility] [address] [place], [place] [address] Medication Refill Social History Tobacco Use Types [...] Description 12/11/2023 7:30 AM CDT [facility] [address] [place] [address] Loretta Elizalde PA-C [address] [place] [address] documented as of this encounter Visit Diagnoses Not on filedocumented in this encounter Additional Health Concerns Infection Onset Date Last Indicated Resolved Time Rule Out COVID-19 10/09/2019 10/09/2019 10/09/2019 9:36 PM CDT Rule Out COVID-19 11/20/2019 11/20/2019 11/21/2019 5:10 PM CDT Rule Out COVID-19 11/25/2019 11/25/2019 11/26/2019 4:41 PM CDT Rule Out COVID-19 04/18/2020 04/18/2020 04/18/2020 4:22 PM GRAPHICS PRODUCTION SPECIALIST COVID-19 04/18/2020 04/18/2020 05/09/2020 11:4 0 PM GRAPHICS PRODUCTION SPECIALIST documented as of this encounter Care Teams Office Workforce Planner Relationship Specialty Start Date End Date Kate Bradley PA-C [address] [place] [address] PCP - General Family Practice 09/22/13 10/27/14 [facility] [address] [facility] [place], [place] [address] PCP - General 10/28/14 11/07/14 Jennifer Pond MD [address] [facility] [place] [address] PCP - General Internal Medicine 11/08/14 08/26/16 [facility] [address] [place] [address] PCP - General 08/27/16 10/26/16 Dany Hirsch [address] [place] [address] PCP - General Family Practice 10/27/16 01/29/18 Johnie Farmer [address] [place] [address] PCP - General Family Practice 01/30/18 09/24/22 Loretta Elizalde PA-C [address] [place] [address] PCP - General Family Medicine 09/25/[address] [facility] [address] [place] [address] 06/14/11 08/26/16 Олег Kaiser MD [address] [place] [address] Urology 04/05/21 Deven Schulte MD [address] [place] [address] Assigned Surgical Provider 04/23/21 09/21/22 Олег Kaiser MD [address] [place] [address] Assigned Surgical Provider 04/16/21 04/22/21 Loretta Elizalde PA-C [address] [place], [place] [address] Assigned PCP 09/22/22 Олег Kaiser MD [address] [place] [address] Assigned Surgical Provider 09/22/22 09/28/22 Deven Schulte MD [address] [place] [address] 983405 Assigned Surgical Provider 09/29/22 10/19/22 Dong Craft MD [address] [place] [address] MD Gómez 10/09/22 Dong Craft MD [address] [place] [address] Assigned Cancer Care Provider 11/24/22 05/24/23 Grazyna Damian, COLOR MAKER [address] [place] [address] Assigned Cancer Care Provider 05/25/23 documented as of this encounter
[2023-11-07 15:03] LABS: Mononuclear WBC Body Fluid* 3 %; Polynuclear WBC Body Fluid* 97 %; RBC, Body Fluid* 17000 Cells/uL; WBC, Body Fluid* 29768 Cells/uL
[2023-11-07 15:08] LABS: BF Clarity* Cloudy; BF Color Xanthochromic; BF Total Volume* 60
== END 2023-11-07 10:53 | disposition home or self-care (01) ==
PROVIDERS: Visit Provider Orthopaedic Surgery Sports Medicine
DX: M25.461 Effusion, right knee (principal); M25.561 Pain in right knee
CPT/HCPCS: 87070; 87075; 87205; 89051; 89060

== ENCOUNTER 2023-11-14 15:07 | Outpatient (CLI) | payer OTHER, SELFPAY ==
--- OUTSIDE RECORDS SUMMARY | 2023-11-14 15:10 | XMS_ITS | Encounter Summary ---
Author Organization [place] Address [address] [facility] [place] [address] Care Team Providers Care Bucket Turner Name Role Phone Олег Kaiser MD Unavailable [phone] Loretta Elizalde PA-C Unavailable Loretta Elizalde PA-C Primary Care Provider [phone] Dong Craft MD Unavailable [phone] Grazyna Damian CNP Unavailable [phone] Reason for Visit * Reason Comments Medication Refill Encounter Details Date Type Department Care Team (Late st Contact Info) Description 11/12/2023 Refill [facility] [address] [place] [id number] Loretta Elizalde PA-C [address] [place] [address] Medication Refill Social History Tobacco Use Types [...] encounter Miscellaneous Notes * Telephone Encounter - Loretta Elizalde PA-C - 11/12/2023 12:57 PM CDT Plan was to take 10 mg daily for 1 week, then increase to 20 mg daily. He has rx for 20 mg dose. 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) documented in this encounter Additional Health Concerns Assessment Noted Time PHQ-9 Depression Total Score: 7 11/06/19 24 3:16 PM CDT documented as of this encounter Care Teams Bucket Turner Relationship Specialty Start Date End Date Lroetta Elizalde PA-C [address] [place], [place] [phone] PCP - General Family Medicine 09/25/22 Олег Kaiser MD [address] [place] [address] Urology 04/05/21 Loretta Elizalde PA-C [address] [place] [address] Assigned PCP 09/22/22 Dong Craft MD [address] [place] [address] Hematology 10/09/22 Grazyna Damian CNP [address] [place] [address] [address] [place], [place] 803[address] Assigned Cancer Care Provider 05/25/23 documented as of this encounter
--- OUTSIDE RECORDS SUMMARY | 2023-11-14 15:10 | XMS_ITS | Encounter Summary ---
Author Organization [place] Address [address] [facility] [place] [address] Care Team Providers Care Personal Lines Insurance Agent Name Role Phone Олег Kaiser MD Unavailable [phone] Loretta Elizalde PA-C Unavailable [phone] Loretta Elizalde PA-C Primary Care Provider [phone] Dong Craft MD Unavailable [phone] Dong Craft MD Unavailable [phone] Grazyna Damian CNP Unavailable [phone] Encounter Details Date Type Department Care Team (Late st Contact Info) Description 05/14/2023 MyC Medical Advice [facility] [address] [place] [address] [facility] Social History Tobacco Use Types Packs/Day [...] Description 12/11/2023 7:30 AM CDT Office Visit [address] [place] [address] Loretta Elizalde PA-C [address] [place] [address] documented as of this encounter Visit Diagnoses Not on filedocumented in this encounter Additional Health Concerns Assessment Noted Time PHQ-9 Depression Total Score: 2 09/12/19 23 7:51 AM CDT documented as of this encounter Care Teams Personal Lines Insurance Agent Relationship Specialty Start Date End Date Loretta Elizalde PA-C [address] [place] [address] PCP - General Family Medicine 09/25/22 Олег Kaiser MD [address] [place] [address] [id number] Urology 04/05/21 Loretta Elizalde PA-C [address] [place] [address] Assigned PCP 09/22/22 Dong Craft MD [address] [place] [address] [id number] Hematology 10/09/22 Dong Craft MD [address] [place] [address] Assigned Cancer Care Provider 11/24/22 05/24/23 Grazyna Damian CNP [address] [place] [address] Assigned Cancer Care Provider 05/25/23 documented as of this encounter
--- OUTSIDE RECORDS SUMMARY | 2023-11-14 15:10 | XMS_ITS | Referral Summary ---
Author Organization [place] Address [address] [facility] [address] Care Team Providers Care Clinical Investigator Name Role Phone Олег Kaiser MD Unavailable [phone] Loretta Elizalde PA-C Unavailable [phone] Loretta Elizalde PA-C Primary Care Provider [phone] Dong Craft MD Unavailable [phone] Grazyna Damian CNP Unavailable [phone] Encounters Date Type Department Care Team Description 11/12/2023 Refill [facility] [address] [place] [address] Loretta Elizalde PA-C Medication Refill 11/06/2023 4:00 PM CDT Virtual Visit [facility] [address] [place] [address] Loretta Elizalde PA-C 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) (Primary Dx); Moderate persistent asthma without complication; Type 2 diabetes mellitus with diabetic nephropathy, 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); Hypertension goal BP (blood pressure) < 140/90; Hyperlipidemia LDL goal <70 10[facility] [address] [place] [address] Loretta Elizalde PA-C Refill Request (FLUoxetine (PROZAC) 40 MG capsule and albuterol (PROAIR HFA/PROVENTIL HFA/VENTOLIN HFA) 108 (90 Base) MCG/ACT inhaler) 08/19/2023 MyC Medical Advice [facility] [address] [address] Eleanor Schwartz from Last 3 [...] days. Use to read blood sugars per laborer ammunition assembly's instructions. 6 each 5 11/06/2023 Active albuterol [...] to 20 mg daily 7 capsule 11/06/2023 Active FLUoxetine (PROZAC) 20 MG capsuleIndications :Mild [...] 4 Discontinued (Reorder (No AVS)) Continuous Glucose Attendant Sales (RouxbeYLE SHIRLENE 3 READER) DEVIIndications:Ty pe 2 diabetes mellitus with diabetic nephropathy, 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) 1 each once for 1 dose Use to read blood sugars per laborer ammunition assembly's instructions. 1 each 11/06/2023 4 Active Problems Patient Care Coordination No te Formatting of this note migh t be different from the original. EMERGENCY CARE PLAN ACUTE CARE PLAN FOR THE FOLLOWING CONDITIONS: Chronic abdominal pain BRIEF HISTORY OF CONDITIONS: He has history of patricia-en-y gastric bypass surgery in 2006. Has been seen in emergency departments frequently in [phone] for epigastric abdominal pain. Has chronic pain of 7/10 noted on December 2018 [facility] admission. He has had significant workup for this pain throughout this time. Patient has had multiple gallbladder US and CT abdomen/pelvis during this time that have been unremarkable. He had EGD in September 2018 through [facility] that was normal. He saw general surgery TAB MACHINE OPERATOR through [facility] clinic on 01/06/19 that thought some of [...] care provider CONTACT INFORMATION FOR PMD OR HEEL LAYER: Johnie Farmer MD [phone] PAIN CONTRACT CLINIC/PRESCRIBER: N/A RESTRICTED STATUS IF [...] Overview: H/o overdose attempt (2006), hospitalized at [facility] 2010 Vitamin D deficiency 05/16/2010 Acute gout of right knee, unspecified cause 05/29 S/P gastric bypass 06/25/2008 09/11/2022 Overview: ~2001, [facility], Dr Zhou? Resolved Problems Problem [...] Overview: Reports being sober since 12/2009, attending [facility] 09/22/2013 09/11/2022 Overview: State Tier Level: NA Status: NA Passenger Locomotive Engineer: See Letters for [facility] Care Plan Pernicious [...] MONOVALENT 12+ (Pfizer) 11/04/2020,09/25 Flu, Unspecified 03/15/2019 [id number] Novel Flu P-free 07/08/2009 HepB 04/11/2012,05/12/2010,02/09/2010 Hepatitis [...] Comments Blood Pressure 153/95 05/14/2023 12:14 PM [facility] Pulse 89 05/14/2023 12:14 PM [facility] Temperature 36.4 ??C (97.6 ??F) 05/14/2023 12:[address] Respiratory Rate 18 05/14/2023 12:14 PM [facility] BRUSHER Oxygen Saturation 98% 05/14/2023 12:14 PM [facility]USHER Inhaled Oxygen Concentration - - Weight 99.3 kg (219 lb) 05/14/2023 12:14 PM BISQUE BRUSHER Height 175.3 cm (5' 9) 10/16/2022 1:50 PM CDT Body Mass Index 32.34 10/16/2022 1:50 PM CDT Plan of Treatment Upcoming Encounters Date Type Department Care Team (Late st Contact Info) Description 12/11/2023 7:30 AM CDT Office Visit [facility] [address] [place] [address] Loretta Elizalde PA-C [address] [place] [address] Goals Goal Patient Goal Type Associated Problems [...] my appointments. Medical Devices Implanted Type Area Master At Arms Device Identifier Shelf Expiration Date Model / Serial / Lot Stent Ureteral Polaris Ultra [id number] - [id number] Implanted:Qty: 1 on 04/08/2021 by Олег Kaiser MD at [facility] Stent Right: Abdomen [employer] 01/06/2024 [id number] / / [id number] Procedures Procedure Name Priority Date/Time Associated Diagnosis [...] BLOOD STOOL STAT 06/23/2019 9: 59 AM [facility] ASTHMA ACTION PLAN Routine 10/13/2015 9: 27 [...] MD LAB - BLOOD ORDER [facility] Acute Care Lab [address] [facility] (1st floor, no room number) [place] [address], [facility] [phone] * COLONOSCOPY (10/03/2022 12:08 PM CDT) [facility] Patient Name: Alex ??Salter ?Procedure [...] continuously. The ?Olympus Adult Colonoscope, Model # CF-VO230K, ?Endora # 226, SN # [id number] was introduced through ?the anus and advanced [...] Note Initiated On: 10/03/2022 12:08 PM MRN: ?[id number] Procedure Date: ? 10/03/2022 12:08:54 PM Scope [...] mg/dL 212.0 mg/dL 09/25/2022 10:01 PM CDT [facility] Comment:The reference ranges have not been [...] control, and institution of therapy with an taicokaoohi-sdvamiprrq-vfllsh (ABNER) inhibitor (if the patient can tolerate it). ?? Urine URINE SPECIMEN / Unknown Non-blood Collection / Unknown 09/25/2022 3:40 PM CDT 09/25/2022 3:41 PM CDT Loretta Elizalde PA-C LAB - URINE ORDERAB LES [facility]U LABORATORY [facility] [address] [facility], [address] [place] [address], [facility] [phone] * HIV Antigen Antibody Combo (09/11/2022 8:48 AM CDT) Pathologist [facility] Emergency Department HIV Antigen Antibody Combo Nonreactive Nonreactive 09/11/2022 5:57 PM CDT [facility] CORE/PROT/EN DO Comment:HIV-1 p24 Ag & HIV-1 /HIV-2 Ab Not Detected Blood BLOOD SPECIMEN / Unknown Venipuncture / Unknown 09/11/2022 8:48 AM CDT 09/11/2022 8:48 AM CDT Loretta HERNANDEZC LAB - BLOOD ORDERAB LES [facility] CORE/PROT/ENDO [facility] Core/Prot/Endo [address] [facility], [address] [phone] * Hepatitis C Screen Reflex to HCV [...] LES [facility] SPECIAL[facility] CORE/PROT/ENDO Specialty Core/Prot/Endo [address] [facility], Room [address] [phone] * (ABNORMAL) Lipid panel reflex to direct [...] PA-C LAB - BLOOD ORDERAB LES LABORATORY [facility] [address] [facility], [address] [id number] [phone] * (ABNORMAL) HEMOGLOBIN A1C (09/11/2022 8:48 AM [...] PA-C LAB - BLOOD ORDERAB LES LABORATORY [facility] [address] [facility] Lab (no room number, 1st floor of clinic) [place] [address], [facility] [phone] * Stool: occult blood (06/23/2019 9:59 AM BISQUE BRUSHER) Occult Blood Negative NEG^Negati ve 06/23/2019 10:[address] [facility] Comment: Called to RUTH PRITCHETT IN ERA @ 1010 ON 06/23/19, NB Stool specimen (specimen) 06/23/2019 9:59 AM BISQUE BRUSHER 06/23/2019 10:05 AM [facility] Destinee Graham DO LAB - STOOLS ORDER RIMMA [facility] [address] [place] [address], [facility] [phone] from Last 3 Months or Most Recently Relevant to Health Maintenance Advance Directives For more information, please contact: [phone] * Full Code (Latest Code Status on [...] with patie nt/legal decision maker Care Teams Clinical Investigator Relationship Specialty Start Date End Date Loretta Elizalde PA-C [address] [place] [address] PCP - General Family Medicine 09/25/22 [facility] MD [address] [place] [address] Urology 04/05/21 Loretta Elizalde PA-C [address] [place] [address] Assigned PCP 09/22/22 Dong Craft MD [address] [place] [address] Hematology 10/09/22 Grazyna Damian CNP [address] [place] [address] [address] [place], [place] [phone] Assigned Cancer Care Provider 05/25/23
--- OUTSIDE RECORDS SUMMARY | 2023-11-14 15:10 | XMS_ITS | Encounter Summary ---
Author Organization [place] Address [address] [facility] [place] [address] Care Team Providers Care Stream Control Officer Name Role Phone Олег Kaiser MD Unavailable [phone] Loretta Elizalde PA-C Unavailable [phone] Loretta Elizalde PA-C Primary Care Provider [phone] Dong rCaft MD Unavailable [phone] Grazyna Damian CNP Unavailable [phone] Reason for Visit * Reason Comments Depression Recheck Medication Diabetes Hypertension Lipids Asthma Encounter Details Date Type Department Care Team (Late st Contact Info) Description 11/06/2023 4:00 PM CDT Virtual Visit [facility] [address] [place] [address] Loretta Elizalde PA-C [address] [place] [address] Mild episode of recurrent major [...] be resent by: Text to cell phone: [phone] Will anyone else be joining your video [...] help monitor glucose levels. - Continuous Glucose Hematologist Oncologist ([employer] SHIRLENE 3 READER) JAZMIN; 1 each once for 1 dose Use to read blood sugars per diving board assembler's instructions. - Continuous Glucose Sensor (FREESTYLE SHIRLENE 3 SENSOR) MISC; 1 each every 14 days Use 1 sensor every 14 days. Use to read blood sugars per diving board assembler's instructions. - metFORMIN (GLUCOPHAGE XR) 500 MG [...] home but was seen in ER at [facility] earlier this week for backpain [...] Description 12/11/2023 7:30 AM CDT Office Visit [facility] [address] [place] [address] Loretta Elizalde PA-C [address] [place] [address] Scheduled Orders Name Type Priority Associated Diagnoses [...] documented as of this encounter Care Teams Stream Control Officer Relationship Specialty Start Date End Date Loretta Elizalde PA-C [address] [place] [address] PCP - General Family Medicine 09/25/22 Олег Kaiser MD [address] [place] [address] [id number] Urology 04/05/21 Loretta Elizalde PA-C [address] [place] [address] Assigned PCP 09/22/22 Dong Craft MD [address] [place] [address] [phone] Hematology 10/09/22 Grazyna Damian CNP [address] [place] [address] [phone] Assigned Cancer Care Provider 05/25/23 documented as of this encounter
--- OUTSIDE RECORDS SUMMARY | 2023-11-14 15:10 | XMS_ITS | Clinical Summary ---
Author Organization [place] Address [address] [facility] [place] [address] Care Team Providers Care Memorial Designer Name Role Phone Олег Kaiser MD Unavailable [phone] Loretta Elizalde PA-C Unavailable [phone] Loretta Elizalde PA-C Primary Care Provider [phone] Dong Craft MD Unavailable [phone] Grazyna Damian CNP Unavailable [phone] Allergies Active Allergy Reactions Criticality Noted [...] days. Use to read blood sugars per bed spring maker's instructions. 6 each 5 11/06/2023 Active albuterol [...] 4 Discontinued (Reorder (No AVS)) Continuous Glucose Visual Display Associate (FREESTYLE SHIRLENE 3 READER) DEVIIndications:Ty pe 2 diabetes mellitus with diabetic nephropathy, 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) 1 each once for 1 dose Use to read blood sugars per bed spring maker's instructions. 1 each 11/06/2023 4 Active Problems Patient Care Coordination No te Formatting of this note migh t be different from the original. EMERGENCY CARE PLAN ACUTE CARE PLAN FOR THE FOLLOWING CONDITIONS: Chronic abdominal pain BRIEF HISTORY OF CONDITIONS: He has history of patricia-en-y gastric bypass surgery in 2005. Has been seen in emergency departments frequently in [phone] for epigastric abdominal pain. Has chronic pain of 7/10 noted on December 2018 [facility] admission. He has had significant workup for this pain throughout this time. Patient has had multiple gallbladder US and CT abdomen/pelvis during this time that have been unremarkable. He had EGD in September 2018 through [facility] that was normal. He saw general surgery TANK TRUCK MILK RECEIVER through [facility] on 01/06/19 that thought some of [...] care provider CONTACT INFORMATION FOR PMD OR INCLUSION PARAEDUCATOR: Johnie Farmer MD [phone] PAIN CONTRACT CLINIC/PRESCRIBER: N/A RESTRICTED STATUS IF [...] Overview: H/o overdose attempt (2006), hospitalized at [facility]'s 2010 Vitamin D deficiency 05/16/2010 Acute gout of right knee, unspecified cause 05/29 S/P gastric bypass 06/25/2008 09/11/2022 Overview: ~2001, [facility], Dr Zhou? 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) (Primary Dx); Moderate persistent asthma without complication; Type 2 diabetes mellitus with diabetic nephropathy, 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); Hypertension goal BP (blood pressure) < 140/90; Hyperlipidemia LDL goal <70 10/30/2023 Refill [facility] [address] [place] [address] Loretta Elizalde, OSMAN Refill Request (FLUoxetine (PROZAC) 40 MG capsule and albuterol (PROAIR HFA/PROVENTIL HFA/VENTOLIN HFA) 108 (90 Base) MCG/ACT inhaler) 08/19/2023 MyC Medical Advice [facility] Blood and Marrow Transplant Program [address] [address] Eleanor Schwartz from Last 3 Months Immunizations Name Administration Dates Next Due COVID-19 12+ () (Pfizer) 03/28/2023 COVID-19 MONOVALENT 12+ (Pfizer) 11/04/2020,09/25 Flu, Unspecified 03/15/2019 H6l3-13 Novel Flu P-free 07/08/2009 HepB 04/11/2012,05/12/2010,02/09/2010 Hepatitis [...] Comments Blood Pressure 153/95 05/14/2023 12:14 PM WATER AND SEWER SYSTEMS SUPERINTENDENT Pulse 89 05/14/2023 12:14 PM WATER AND SEWER SYSTEMS SUPERINTENDENT Temperature 36.4 ??C (97.6 ??F) 05/14/2023 12:[address] Respiratory Rate 18 05/14/2023 12:14 PM WATER AND SEWER SYSTEMS SUPERINTENDENT Oxygen Saturation 98% 05/14/2023 12:14 PM WATER AND SEWER SYSTEMS SUPERINTENDENT Inhaled Oxygen Concentration - - Weight 99.3 kg (219 lb) 05/14/2023 12:14 PM WATER AND SEWER SYSTEMS SUPERINTENDENT Height 175.3 cm (5' 9) 10/16/2022 1:50 PM CDT Body Mass Index 32.34 10/16/2022 1:50 PM CDT Plan of Treatment Upcoming Encounters Date Type Department Care Team (Late st Contact Info) Description 12/11/2023 7:30 AM CDT Office Visit [facility] [address] [place] [address] Loretta Elizalde [place]uben [address] [place] [address] Health Maintenance Due Date Last Done Comments CT COLONOGRAPHY 1974 EYE EXAM 1974 FLEX SIG 1974 sDNA (Cologuard) 1974 FIT 06/23/2020 06/23/2019 A1C 03/13/2023 09/11/2022, 1106/2020, 04/18/2020, Additional history exists ASTHMA CONTROL TEST [...] my appointments. Medical Devices Implanted Type Area Bindery Production Manager Device Identifier Shelf Expiration Date Model / Serial / Lot Stent Ureteral Polaris Ultra [id number] - [id number] Implanted:Qty: 1 on 04/08/2021 by Олег Kaiser MD at [facility] Stent Right: Abdomen [employer] 01/06/2024 [id number] / / [id number] Procedures Procedure Name Priority Date/Time Associated Diagnosis [...] BLOOD STOOL STAT 06/23/2019 9: 59 AM WATER AND SEWER SYSTEMS SUPERINTENDENT ASTHMA ACTION PLAN Routine 10/13/2015 9: 27 AM CDT C FOOT EXAM Routine 09/22/2013 1:08 PM CDT Diabetes mellitus, type 2 (H) from Last 3 Months or Most Recently Relevant to Health Maintenance Results * (ABNORMAL) Basic metabolic panel (10/04/2022 6:02 AM CDT) Sodium 138 136 - 145 mmol/L 10/04/2022 7:04 AM [facility] Potassium 3.5 3.4 - 5.3 mmol/L 10/04/2022 7:04 AM [facility] Chloride 106 98 - 107 mmol/L 10/04/2022 7:04 AM [facility] Carbon Dioxide (CO2) 24 22 - 29 mmol/L 10/04/2022 7:04 AM [facility] Anion Gap 8 7 - 15 mmol/L 10/04/2022 7:04 AM [facility] Urea Nitrogen 7.7 6.0 - 20.0 mg/dL 10/04/2022 7:04 AM [facility] Creatinine 1.02 0.67 - 1.17 mg/dL 10/04/2022 7:04 AM [facility] Calcium 8.4(L) 8.6 - 10.0 mg/dL 10/04/2022 7:04 AM [facility] Glucose 130(H) 70 - 99 mg/dL 10/04/2022 7:04 AM [facility] GFR Estimate >90 >60 mL/min/1.7 3m2 10/04/2022 7:04 AM [facility] Comment:eGFR calculated usin 2020 CKD-EPI equation. Blood STRUCTURE OF RIGHT HAND / Unknown Venipuncture / Unknown 10/04/2022 6:02 AM CDT 10/04/2022 6:30 AM CDT Paula Parr MD LAB - BLOOD ORDER RIMMA [facility] Acute Care Lab [address] [facility] (1st floor, no room number) [place] [address], [place] [phone] * COLONOSCOPY (10/03/2022 12:08 PM CDT) [facility] COLONOSCOPY [facility] Patient Name: Alex ??Salter ?Procedure Date: [...] continuously. The ?Olympus Adult Colonoscope, Model # CF-CG525H, ?[place]ora # 226, SN # [id number] was introduced through ?the anus and advanced [...] bowel pill camera ?study. ? ____ JD PEDRO RHOADES, MD 10/03/2022 1:46:50 PM I was physically present for the entire viewing portion of the exam. JD RHOADES MD Number of Addenda: 0 Note Initiated On: 10/03/2022 12:08 PM MRN: ?[id number] Procedure Date: ? 10/03/2022 12:08:54 PM Scope [...] control, and institution of therapy with an vcwnwywejww-dwriiuexnm-odznyd (ABNER) inhibitor (if the patient can tolerate it). ?? Urine URINE SPECIMEN / Unknown Non-blood Collection / Unknown 09/25/2022 3:40 PM CDT 09/25/2022 3:41 PM CDT Loretta Elizalde PA-C LAB - URINE ORDERAB LES [facility] [place] [facility] [address] [facility], [address] [address], [facility] [phone] * HIV Antigen Antibody Combo (09/11/2022 8:48 AM CDT) HIV Antigen Antibody Combo Nonreactive Nonreactive 09/11/2022 5:57 PM CDT SPECIALTY CORE/PROT/EN DO Comment:HIV-1 p24 Ag & HIV-1 /HIV-2 Ab Not Detected Blood BLOOD SPECIMEN / Unknown Venipuncture / Unknown 09/11/2022 8:48 AM CDT 09/11/2022 8:48 AM CDT Loretta Elizalde PA-C LAB - BLOOD ORDERAB LES [facility] SPECIALTY CORE/PROT/ENDO [facility] Specialty Core/Prot/Endo [address] [facility], Room [address] [phone] * Hepatitis C Screen Reflex to HCV [...] LES UM SPECIALTY CORE/PROT/ENDO Specialty Core/Prot/Endo [address] [facility], [address] [phone] * (ABNORMAL) Lipid panel reflex to direct [...] LAB - BLOOD ORDERAB LES [facility] [place] [facility] [address] [facility], [address] [place] [address], [facility] [phone] * (ABNORMAL) HEMOGLOBIN A1C (09/11/2022 8:48 AM [...] PA-C LAB - BLOOD ORDERAB LES LABORAT[facility] [address] [facility] Lab (no room number, 1st floor of clinic) [place] [address], [facility] [phone] * Stool: occult blood (06/23/2019 9:59 AM WATER AND SEWER SYSTEMS SUPERINTENDENT) Occult Blood Negative NEG^Negati ve 06/23/2019 10:11 AM WATER AND SEWER SYSTEMS SUPERINTENDENT [facility] Comment: Called to RUTH PRITCHETT IN ERA @ 1010 ON 06/23/19, NB Stool specimen (specimen) 06/23/2019 9:59 AM WATER AND SEWER SYSTEMS SUPERINTENDENT 06/23/2019 10:05 AM WATER AND SEWER SYSTEMS SUPERINTENDENT Destinee Graham DO LAB - STOOLS ORDER RIMMA [facility] [address] [place] [address], [facility] [phone] from Last 3 Months or Most Recently Relevant to Health Maintenance Advance Directives For more information, please contact: [phone] * Full Code (Latest Code Status on [...] with patie nt/legal decision maker Care Teams Memorial Designer Relationship Specialty Start Date End Date Loretta Elizalde PA-C [address] [place] [address] PCP - General Family Medicine 09/25/22 Олег Kaiser MD [address] [place] [address] [phone] Urology 04/05/21 Loretta Elizalde PA-C [address] [place] [address] Assigned PCP 09/22/22 Dong Craft MD [address] [place] [address] 229835 Hematology 10/09/22 Grazyna Damian, NORBERT [address] [place] [address] 165965 Assigned Cancer Care Provider 05/25/23
--- OUTSIDE RECORDS SUMMARY | 2023-11-14 15:10 | XMS_ITS | Encounter Summary ---
Author Organization [place] Address [facility] [place] [address] Care Team Providers Care Baseball Inspector Name Role Phone Олег Kaiser MD Unavailable [phone] Loretta Elizalde PA-C Unavailable [phone] Loretta Elizalde PA-C Primary Care Provider [phone] Dong Craft MD Unavailable [phone] Grazyna Damian CNP Unavailable [phone] Encounter Details Date Type Department Care Team (Late st Contact Info) Description 08/19/2023 MyC Medical Advice [facility] Blood and Marrow Transplant Program [address] [address] Eleanor Schwartz Social History Tobacco [...] Description 12/11/2023 7:30 AM CDT Office Visit [address] [address] Loretta Elizalde PA-C [address] [place], [place] [phone] documented as of this encounter Goals Goal Patient Goal Type Associated Problems Recent Progress Patient-Stated? Author Other General No Dina Rno LPN Note: Goal Statement: I will use [...] documented as of this encounter Care Teams Baseball Inspector Relationship Specialty Start Date End Date Loretta Elizalde PA-C [address] [place] [address] PCP - General Family Medicine 09/25/22 Олег Kaiser MD [address] [place] [address] [id number] Urology 04/05/21 Loretta Elizalde PA-C [address] [place] [address] Assigned PCP 09/22/22 Dong Craft MD [address] [place] [address] 827915 Hematology 10/09/22 Grazyna Damian, NORBERT [address] [place] [address] Assigned Cancer Care Provider 05/25/23 documented as of this encounter
--- OUTSIDE RECORDS SUMMARY | 2023-11-14 15:10 | XMS_ITS | Encounter Summary ---
Author Organization [place] Address [address] [facility] [place] [address] Care Team Providers Care Bird Raiser Name Role Phone Олег Kaiser MD Unavailable [phone] Loretta Elizalde PA-C Unavailable [phone] Loretta Elizalde PA-C Primary Care Provider [phone] Dong Craft MD Unavailable [phone] Dong Craft MD Unavailable [phone] Grazyna Damian CNP Unavailable [phone] Encounter Details Date Type Department Care Team (Late st Contact Info) Description 04/19/[address] [facility] [address] [place] [address] Faith Cano Social History Tobacco [...] AM CDT [facility] [address] [place] [address] Loretta Elizalde PA-C [address] [place] [address] documented as of this encounter Visit Diagnoses Not on filedocumented in this encounter Additional Health Concerns Assessment Noted Time PHQ-9 Depression Total Score: 2 09/12/19 23 7:51 AM CDT documented as of this encounter Care Teams Bird Raiser Relationship Specialty Start Date End Date Loretta Elizalde PA-C [address] [place] [address] PCP - General Family Medicine 09/25/22 Олег Kaiser MD [address] [place] [address] [phone] Urology 04/05/21 Loretta Elizalde PA-C [address] [place] [address] Assigned PCP 09/22/22 Dong Craft MD [address] [place] [address] 138075 Hematology 10/09/22 Dong Craft MD [address] [place] [address] Assigned Cancer Care Provider 11/24/22 05/24/23 Grazyna Damian CNP [address] [place] [address] Assigned Cancer Care Provider 05/25/23 documented as of this encounter
--- OUTSIDE RECORDS SUMMARY | 2023-11-14 15:10 | XMS_ITS | Encounter Summary ---
Author Organization [place] Address [address] [facility] [place] [address] Care Team Providers Care Visitor Services Technician Name Role Phone Олег Kaiser MD Unavailable [phone] Loretta Elizalde PA-C Unavailable [phone] Loretta Elizalde PA-C Primary Care Provider [phone] Dong Craft MD Unavailable [phone] Grazyna Damian CNP Unavailable [phone] Reason for Visit * Reason Onset Date Comments Refill Request 10/30/2023 FLUoxetine (PROZ AC) 40 MG capsule and albuterol (PROAIR HFA/PROVENTIL HFA/VENTOLIN HFA) 108 (90 Base) MCG/ACT inhaler Encounter Details Date Type Department Care Team (Late st Contact Info) Description 10/30/2023 Refill [facility] [address] [place] [address] Loretta Elizalde PA-C [address] [place] [address] Refill Request (FLUoxetine (PROZAC) 40 [...] 12:35 PM CDT Scheduled. Faith Cano Lead Kiln [employer]man [facility] * Telephone Encounter - Loretta Elizalde PA-C [...] Description 12/11/2023 7:30 AM CDT Office Visit [facility] [address] [place] [address] Loretta Elizalde PA-C [address] [place], [place] [phone] documented as of this encounter Goals Goal [...] documented as of this encounter Care Teams Visitor Services Technician Relationship Specialty Start Date End Date Loretta Elizalde PA-C [address] [place], [place] 9231368 PCP - General Family Medicine 09/25/22 Олег Kaiser MD [address] [place] [address] Urology 04/05/21 Loretta Elizalde PA-C [address] [place] [address] Assigned PCP 09/22/22 Dong Craft MD [address] [place] [address] Hematology 10/09/22 Grazyna Damian, NORBERT [address] [address] Assigned Cancer Care Provider 05/25/23 documented as of this encounter
--- OUTSIDE RECORDS SUMMARY | 2023-11-14 15:11 | XMS_ITS | Encounter Summary ---
Author Organization [place] Address [address] [facility] [place] [address] Care Team Providers Care Supervisor Fish Processing Name Role Phone [facility] Unavailable Jennifer Pond MD Primary Care Provider [facility] Primary Care Pro vider Dany Hirsch Primary Care Provider Johnie Farmer Primary Care Provider JobОлег bergeron MD Unavailable [phone] Deven Schulte MD Unavailable [phone] Олег Kaiser MD Unavailable [phone] Loretta Elizalde PA-C Unavailable [phone] Олег Kaiser MD Unavailable [phone] Loretta Elizalde PA-C Primary Care Provider Deven Schulte MD Unavailable [phone] Dong Craft MD Unavailable [phone] Dong Craft MD Unavailable [phone] Grazyna Damian CNP Unavailable [phone] Encounter Details Date Type Department Care Team (Late st Contact Info) Description 01/24/2015 MyC Medical Advice [address] [address] Ruth Leigh LPN Social History Tobacco Use [...] 7:30 AM CDT Office Visit [facility] [address] [place] [address] Loretta Elizalde PA-C [address] [place] [address] documented as of this encounter Visit Diagnoses Not on filedocumented in this encounter Additional Health Concerns Infection Onset Date Last Indicated Resolved Time Rule Out COVID-19 10/09/2019 10/09/2019 10/09/2019 9:36 PM CDT Rule Out COVID-19 11/20/2019 11/20/2019 11/21/2019 5:10 PM CDT Rule Out COVID-19 11/25/2019 11/25/2019 11/26/2019 4:41 PM CDT Rule Out COVID-19 04/18/2020 04/18/2020 04/18/2020 4:22 PM PRESCHOOL ASSISTANT TEACHER COVID-19 04/18/2020 04/18/2020 05/09/2020 11:4 0 PM PRESCHOOL ASSISTANT TEACHER documented as of this encounter Care Teams Supervisor Fish Processing Relationship Specialty Start Date End Date Jennifer Pond MD [address] [facility] [place] [address] PCP - General Internal Medicine 11/08/14 08/26/16 [facility] [address] [place], [place] 0158744 PCP - General 08/27/16 10/26/16 Dany Hirsch [address] [place] [address] PCP - General Family Practice 10/27/16 01/29/18 MarlenyJohnie [address] [place] [address] PCP - General Family Practice 01/30/18 09/24/22 Loretta Elizalde PA-C [address] [place] [address] PCP - General Family Medicine 09/25/[address] [phone] 06/14/11 08/26/16 Олег Kaiser MD [address] [place] [address] 217655 Urology 04/05/21 Deven Schulte MD [address] [place] [address] 084175 Assigned Surgical Provider 04/23/21 09/21/22 Олег Kaiser MD [address] [place] [address] Assigned Surgical Provider 04/16/21 04/22/21 Loretta Elizalde PA-C [address] [place] [address] Assigned PCP 09/22/22 Олег Kaiser MD 420 [place] [address] Assigned Surgical Provider 09/22/22 09/28/22 Deven Schulte MD [address] [place] [address] Assigned Surgical Provider 09/29/22 10/19/22 Dong Craft MD [address] [place] [address] MD Gómez 10/09/22 Dong Craft MD [address] [place] [address] Assigned Cancer Care Provider 11/24/22 05/24/23 Grazyna Damian, NORBERT [address] [place] [address] Assigned Cancer Care Provider 05/25/23 documented as of this encounter
--- OUTSIDE RECORDS SUMMARY | 2023-11-14 15:11 | XMS_ITS | Encounter Summary ---
Author Organization [place] Address [address] [facility] [place] [address] Care Team Providers Care Block Making Machine Operator Name Role Phone [facility] Unavailable Kate Bradley PA-C Primary Care Pro vider [facility] Primary Care Isak calderon Jennifer Pond MD Primary Care Provider [facility] Care Pro vider Dany Hirsch Primary Care Provider [phone] Johnie Farmer Primary Care Provider [phone] Олег Kaiser MD Unavailable [phone] Deven Schulte MD Unavailable [phone] Олег Kaiser MD Unavailable [phone] Loretta Elizalde PA-C Unavailable [phone] Олег Kaiser MD Unavailable [phone] Loretta Elizalde PA-C Primary Care Provider [phone] Deven Schulte MD Unavailable [phone] Dong Craft MD Unavailable [phone] Dong Craft MD Unavailable [phone] Grazyna Damian HEEL CEMENTER MACHINE Unavailable [phone] Encounter Details Date Type Department Care Team (Late st Contact Info) Description 10/22/2013 MyC Medical Advice [facility] [address] [place] [address] Kate Bradley PA-C [facility] [address] [place] [address] Social History Tobacco Use Types Packs/Day Years [...] AM CDT Office Visit [facility] [address] [place] [address] Loretta Elizalde PA-C [address] [place] [address] documented as of this encounter Visit Diagnoses Not on filedocumented in this encounter Additional Health Concerns Infection Onset Date Last Indicated Resolved Time Rule Out COVID-19 10/09/2019 10/09/2019 10/09/2019 9:36 PM CDT Rule Out COVID-19 11/20/2019 11/20/2019 11/21/2019 5:10 PM CDT Rule Out COVID-19 11/25/2019 11/25/2019 11/26/2019 4:41 PM CDT Rule Out COVID-19 04/18/2020 04/18/2020 04/18/2020 4:22 PM WEB MANAGER COVID-19 04/18/2020 04/18/2020 05/09/2020 11:4 0 PM WEB MANAGER documented as of this encounter Care Teams Block Making Machine Operator Relationship Specialty Start Date End Date Kate Bradley PA-C [address] [place] [address] PCP - General Family Practice 09/22/13 10/27/14 [facility] [address] [facility] [place] [address] PCP - General 10/28/14 11/07/14 Jennifer Pond MD [address] [facility] [place] [address] PCP - General Internal Medicine 11/08/14 08/26/16 [facility] [address] [place] [address] PCP - General 08/27/16 10/26/16 Dany Hirsch [address] [place] [address] PCP - General Family Practice 10/27/16 01/29/18 Johnie Farmer [address] [place] [address] PCP - General Family Practice 01/30/18 09/24/22 Loretta Elizalde PA-C [address] [place] [address] PCP - General Family Medicine 09/25/22 [facility] [address] [place] [address] 06/14/11 08/26/16 Олег Kaiser MD [address] [place] [address] Urology 04/05/21 Deven Schulte MD [address] [place] [address] Assigned Surgical Provider 04/23/21 09/21/22 Олег Kaiser MD [address] [place] [address] Assigned Surgical Provider 04/16/21 04/22/21 Loretta Elizalde PA-C [address] [place] [address] Assigned PCP 09/22/22 Олег Kaiser MD [address] [place] [address] Assigned Surgical Provider 09/22/22 09/28/22 Deven Schulte MD [address] [place] [address] Assigned Surgical Provider 09/29/22 10/19/22 Dong Craft MD [address] [place] [address] MD Gómez 10/09/22 Dong Craft MD [address] [place] [address] Assigned Cancer Care Provider 11/24/22 05/24/23 Grazyna Damian CNP [address] [place] [address] Assigned Cancer Care Provider 05/25/23 documented as of this encounter
--- OUTSIDE RECORDS SUMMARY | 2023-11-14 15:11 | XMS_ITS | Encounter Summary ---
Author Organization [place] Address [address] [facility] [place] [address] Care Team Providers Care E Commerce Marketing Analyst Name Role Phone [facility] Unavailable Kate Bradley PA-C Primary Care Pro vider [facility] Primary Care Isak calderon Jennifer Pond MD Primary Care Provider [facility] Care Pro vider Dany Hirsch Primary Care Provider [phone] Johnie Farmer Primary Care Provider [phone] Олег Kaiser MD Unavailable +[phone] Deven Schulte MD Unavailable [phone] Олег Kaiser MD Unavailable +[phone] Loretta Elizalde PA-C Unavailable [phone] Олег Kaisre MD Unavailable +[phone] Loretta Elizalde PA-C Primary Care Provider [phone] Deven Schulte MD Unavailable [phone] Dong Craft MD Unavailable +[phone] Dong Craft MD Unavailable [phone] Grazyna Damian [facility] Unavailable [phone] Encounter Details Date Type Department Care Team (Late st Contact Info) Description 10/19/2014 MyC Medical Advice [facility] [address] [place] [address] [facility] Social History Tobacco Use Types Packs/Day [...] 12/11/2023 7:30 AM CDT Office Visit [facility] [address] [place] [address] Loretta Elizalde PA-C [address] [place] [address] documented as of this encounter Visit Diagnoses Not on filedocumented in this encounter Additional Health Concerns Infection Onset Date Last Indicated Resolved Time Rule Out COVID-19 10/09/2019 10/09/2019 10/09/2019 9:36 PM CDT Rule Out COVID-19 11/20/2019 11/20/2019 11/21/2019 5:10 PM CDT Rule Out COVID-19 11/25/2019 11/25/2019 11/26/2019 4:41 PM CDT Rule Out COVID-19 04/18/2020 04/18/2020 04/18/2020 4:22 PM BLUE LEATHER SETTER COVID-19 04/18/2020 04/18/2020 05/09/2020 11:4 0 PM BLUE LEATHER SETTER documented as of this encounter Care Teams E Commerce Marketing Analyst Relationship Specialty Start Date End Date Kate Bradley PA-C [address] [place] [address] PCP - General Family Practice 09/22/13 10/27/14 Clinic - Jaylen Vargas [facility] [address] [facility] [place] [address] PCP - General 10/28/14 11/07/14 Jennifer Pond MD [address] [facility] [place] [address] PCP - General Internal Medicine 11/08/14 08/26/16 [facility] [address] [place] [address] PCP - General 08/27/16 10/26/16 Dany Hirsch [address] [place] [address] PCP - General Family Practice 10/27/16 01/29/18 Johnie Farmer [address] [place] [address] PCP - General Family Practice 01/30/18 09/24/22 Loretta Elizalde PA-C [address] [place] [address] PCP - General Family Medicine 09/25/22 [facility] [address] [place] [address] 06/14/11 08/26/16 Олег Kaiser MD [address] [place] [address] Urology 04/05/21 Deven Schulte MD [address] [place] [address]182 Assigned Surgical Provider 04/23/21 09/21/22 Олег Kaiser MD [address] [place] [address]99 Assigned Surgical Provider 04/16/21 04/22/21 Loretta Elizalde PA-C [address] [place] [address] Assigned PCP 09/22/22 Олег Kaiser MD [address] [place] [address]77 Assigned Surgical Provider 09/22/22 09/28/22 Deven Schulte MD [address] [place] [address]751 Assigned Surgical Provider 09/29/22 10/19/22 Dong Craft MD [address] [place] [address] [facility] 10/09/22 Dong Craft MD [address] [place] [address]99 Assigned Cancer Care Provider 11/24/22 05/24/23 Grazyna Damian CNP [address] [place] [address] Assigned Cancer Care Provider 05/25/23 documented as of this encounter
--- OUTSIDE RECORDS SUMMARY | 2023-11-14 15:11 | XMS_ITS | Encounter Summary ---
Author Organization [place] Address [address] [facility] [place] [address] Care Team Providers Care Long Haul Truck Driver Name Role Phone MarlenyJohnie Primary Care Provider [phone] Олег Kaiser MD Unavailable +[phone] Deven Schulte MD Unavailable [phone] Loretta Elizalde PA-C Unavailable +[phone] Олег Kaiser MD Unavailable +[phone] Loretta Elizalde PA-C Primary Care Provider [phone] Deven Schulte MD Unavailable [phone] Dong Craft MD Unavailable +[phone] Dong Craft MD Unavailable +[phone] Grazyna Damian CNP Unavailable [phone] Reason for Visit * Reason Onset Date Comments Diabetes Education 09/12/2022 Encounter Details Date Type Department Care Team (Late st Contact Info) Description 09/12/2022 Telephone [facility] [address] [place] [address] Loretta Elizalde PA-C [address] [place] [address] Diabetes Education Social History Tobacco [...] Description 12/11/2023 7:30 AM CDT Office Visit [facility] [address] [place] [address] Loretta Elizalde PA-C [address] [place] [address] documented as of this encounter Visit Diagnoses Not on filedocumented in this encounter Additional Health Concerns Assessment Noted Time PHQ-9 Depression Total Score: 2 09/12/19 7:51 AM CDT documented as of this encounter Care Teams Long Haul Truck Driver Relationship Specialty Start Date End Date Johnie Farmer PCP - General Family Practice 01/30/18 09/24/22 Loretta Elizalde PA-C [address] [place] [address] PCP - General Family Medicine 09/25/22 Олег Kaiser MD [address] [place] [address] 086555 Urology 04/05/21 Deven Schulte MD [address] [place] [address] 795575 Assigned Surgical Provider 04/23/21 Loretta Elizlade PA-C [address] [place] [address] Assigned PCP 09/22/22 Олег Kaiser MD [address] [place] [address] 497475 Assigned Surgical Provider 09/22/2209/28/22 Deven Schulte MD [address] [place] [address] 550295 Assigned Surgical Provider 09/29/22 Dong Craft MD [address] [place] [address] 077555 MD Gómez 10/09/22 Dong Craft MD [address] [place] [address] Assigned Cancer Care Provider 11/24/22 05/24/23 Grazyna Damian CNP [address] [place] [address] [address] [place] [address] Assigned Cancer Care Provider 05/25/23 documented as of this encounter
--- OUTSIDE RECORDS SUMMARY | 2023-11-14 15:11 | XMS_ITS | Encounter Summary ---
Author Organization [place] Address [address] [facility] [place] [address] Care Team Providers Care Oil Field Rig Builder Name Role Phone [facility] Unavailable Jennifer Pond MD Primary Care Provider [facility] Primary Care Pro vider Dany Hirsch Primary Care Provider Johnie Farmer Primary Care Provider JobОлег bergeron MD Unavailable [phone] Deven Shculte MD Unavailable [phone] Олег Kaiser MD Unavailable +[phone] Loretta Elizalde PA-C Unavailable [phone] Олег Kaiser MD Unavailable +[phone] Loretta Elizalde PA-C Primary Care Provider Deven Schulte MD Unavailable [phone] Dong Craft MD Unavailable +[phone] Dong Craft MD Unavailable [phone] Grazyna Damian CNP Unavailable [phone] Encounter Details Date Type Department Care Team (Late st Contact Info) Description 03/24/2015 MyC Medical Advice [address] [address] Vibha Orozco Social History Tobacco Use Types [...] Description 12/11/2023 7:30 AM CDT Office Visit [facility] [address] [place] [address] Loretta Elizalde PA-C [address] [place] [address] documented as of this encounter Visit Diagnoses Not on filedocumented in this encounter Additional Health Concerns Infection Onset Date Last Indicated Resolved Time Rule Out COVID-19 10/09/2019 10/09/2019 10/09/2019 9:36 PM CDT Rule Out COVID-19 11/20/2019 11/20/2019 11/21/2019 5:10 PM CDT Rule Out COVID-19 11/25/2019 11/25/2019 11/26/2019 4:41 PM CDT Rule Out COVID-19 04/18/2020 04/18/2020 04/18/2020 4:22 PM DELIVERY RECRUITER COVID-19 04/18/2020 04/18/2020 05/09/2020 11:4 0 PM DELIVERY RECRUITER documented as of this encounter Care Teams Oil Field Rig Builder Relationship Specialty Start Date End Date Jennifer Pond MD [address] [facility] [place] [address] PCP - General Internal Medicine 11/08/14 08/26/16 [facility] [address] [place] [address] 0540844 PCP - General 08/27/16 10/26/16 RobbiejimboMayra greenbergmanolo [address] [place] [address] PCP - General Family Practice 10/27/16 01/29/18 Johnie Farmer [address] [place] [address] PCP - General Family Practice 01/30/18 09/24/22 Loretta Elizalde PA-C [address] [place] [address] PCP - General Family Medicine 09/25/[address] [address] 06/14/11 08/26/16 Олег Kaiser MD [address] [place] [address] Urology 04/05/21 Deven Schulte MD [address] [place] [address] 262375 Assigned Surgical Provider 04/23/21 09/21/22 Олег Kaiser MD [address] [place] [address] Assigned Surgical Provider 04/16/21 04/22/21 Loretta Elizalde PA-C [address] [place] [address] Assigned PCP 09/22/22 Олег Kaiser MD [address] [place] [address] Assigned Surgical Provider 09/22/22 09/28/22 Deven Schulte MD [address] [place] [address]2883 Assigned Surgical Provider 09/29/22 10/19/22 Dong Craft MD [address] [place] [address] [facility] 10/09/22 Dong Craft MD [address] [place] [address] 26071 Assigned Cancer Care Provider 11/24/22 05/24/23 Grazyna Damian CNP [address] [place] [address] Assigned Cancer Care Provider 05/25/23 documented as of this encounter
--- OUTSIDE RECORDS SUMMARY | 2023-11-14 15:11 | XMS_ITS | Encounter Summary ---
Author Organization [place] Address [address] [facility] [place] [address] Care Team Providers Care Access Liaison Name Role Phone Олег Kaiser MD Unavailable [phone] Loretta Elizalde PA-C Unavailable [phone] Loretta Elizalde PA-C Primary Care Provider [phone] Dong Craft MD Unavailable [phone] Dong Craft MD Unavailable [phone] Grazyna Damian CNP Unavailable [phone] Encounter Details Date Type Department Care Team ([facility] Contact Info) Description 01/07/2023 [facility] [address] [address] Hallie Maria Social History Tobacco [...] Upcoming Encounters Date Type Department Care Team ([facility] Contact Info) Description 12/11/2023 7:30 AM CDT Office Visit [facility] [address] [place] [address] Loretta Elizalde PA-C [address] [place] [address] documented as of this encounter Visit Diagnoses Not on filedocumented in this encounter Additional Health Concerns Assessment Noted Time PHQ-9 Depression Total Score: 2 09/12/19 7:51 AM CDT documented as of this encounter Care Teams Access Liaison Relationship Specialty Start Date End Date Loretta Elizalde PA-C [address] [place] [address] PCP - General Family Medicine 09/25/22 Олег Kaiser MD [address] [place] [address] Urology 04/05/21 Loretta Elizalde PA-C [address] [place] [address] Assigned PCP 09/22/22 Dong Craft MD [address] [place] [address] 626095 Hematology 10/09/22 Dong Craft MD [address] [place] [address] 307985 Assigned Cancer Care Provider 11/24/22 05/24/23 Grazyna Damian CNP [address] [place] [address] 079485 Assigned Cancer Care Provider 05/25/23 documented as of this encounter
--- OUTSIDE RECORDS SUMMARY | 2023-11-14 15:11 | XMS_ITS | Encounter Summary ---
Author Organization [place] Address [address] [facility] [place] [address] Care Team Providers Care Rn Security Name Role Phone Олег Kaiser MD Unavailable [phone] Loretta Elizalde PA-C Unavailable [phone] Loretta Elizalde PA-C Primary Care Provider [phone] Dong Craft MD Unavailable [phone] Dong Craft MD Unavailable [phone] Grazyna Damian CNP Unavailable [phone] Encounter Details Date Type Department Care Team (Late st Contact Info) Description 02/01/[address] [facility] [address] [place] [address] Faith Cano Social History Tobacco [...] 7:30 AM CDT [facility] [address] [place] [address] Loretta Elizalde PA-C [address] [place], [place] 3677968 documented as of this encounter Visit Diagnoses Not on filedocumented in this encounter Additional Health Concerns Assessment Noted Time PHQ-9 Depression Total Score: 2 09/12/19 23 7:51 AM CDT documented as of this encounter Care Teams Rn Security Relationship Specialty Start Date End Date Loretta Elizalde PA-C [address] [place] [address] PCP - General Family Medicine 09/25/22 Олег Kaiser MD [address] [place] [address]54 Urology 04/05/21 Loretta Elizalde PA-C [address] [place] [address] Assigned PCP 09/22/22 Dong Craft MD [address] [place] [address] [facility] 10/09/22 Dong Craft MD [address] [place] [address] 43712 Assigned Cancer Care Provider 11/24/22 05/24/23 Grazyna Damian CNP [address] [place] [address] 523921 Assigned Cancer Care Provider 05/25/23 documented as of this encounter
--- OUTSIDE RECORDS SUMMARY | 2023-11-14 15:11 | XMS_ITS | Encounter Summary ---
Author Organization [place] Address [address] [facility] [place] [address] Care Team Providers Care Thread Marker Name Role Phone [facility] Unavailable Jennifer Pond MD Primary Care Provider [facility] Primary Care Pro vider aDny Hirsch Primary Care Provider Johnie Farmer Primary Care Provider JobОлег bergeron MD Unavailable [phone] Deven Schulte MD Unavailable [phone] Олег Kaiser MD Unavailable [phone] Loretta Elizalde PA-C Unavailable [phone] Олег Kaiser MD Unavailable +[phone] Loretta Elizalde PA-C Primary Care Provider [phone] Deven Schulte MD Unavailable [phone] Dong Craft MD Unavailable [phone] Dong Craft MD Unavailable [phone] Grazyna Damian CNP Unavailable [phone] Encounter Details Date Type Department Care Team (Late st Contact Info) Description 06/16/2015 MyC Medical Advice [address] [address] Ruth Leigh LPN Social History Tobacco Use [...] Description 12/11/2023 7:30 AM CDT Office Visit [facility] [address] [place] [address] Loretta Elizalde PA-C [address] [place] [address] documented as of this encounter Visit Diagnoses Not on filedocumented in this encounter Additional Health Concerns Infection Onset Date Last Indicated Resolved Time Rule Out COVID-19 10/09/2019 10/09/2019 10/09/2019 9:36 PM CDT Rule Out COVID-19 11/20/2019 11/20/2019 11/21/2019 5:10 PM CDT Rule Out COVID-19 11/25/2019 11/25/2019 11/26/2019 4:41 PM CDT Rule Out COVID-19 04/18/2020 04/18/2020 04/18/2020 4:22 PM DIRECTOR PEOPLESOFT COVID-19 04/18/2020 04/18/2020 05/09/2020 11:4 0 PM DIRECTOR PEOPLESOFT documented as of this encounter Care Teams Thread Marker Relationship Specialty Start Date End Date Jennifer Pond MD [address] [facility] [place] [address] PCP - General Internal Medicine 11/08/14 08/26/16 [facility] [address] [place], [place] 4115144 PCP - General 08/27/16 10/26/16 Dany Hirsch [address] [place] [address] PCP - General Family Practice 10/27/16 01/29/18 MarlenyJohnie [address] [place] [address] PCP - General Family Practice 01/30/18 09/24/22 Loretta Elizalde PA-C [address] [place] [address] PCP - General Family Medicine 09/25/[address] [id number] 06/14/11 08/26/16 Олег Kaiser MD [address] [place] [address] 130325 Urology 04/05/21 Deven Schulte MD [address] [place] [address] 424175 Assigned Surgical Provider 04/23/21 09/21/22 Олег Kaiser MD [address] [place] [address]334 Assigned Surgical Provider 04/16/21 04/22/21 Loretta Elizalde PA-C [address] [place] [address] Assigned PCP 09/22/22 Олег Kaiser MD [address] [place] [address] Assigned Surgical Provider 09/22/22 09/28/22 Deven Schulte MD [address] [place] [address] Assigned Surgical Provider 09/29/22 10/19/22 Dong rCaft MD [address] [place] [address] MD Gómez 10/09/22 Dong Craft MD 9 [place] [address] Assigned Cancer Care Provider 11/24/22 05/24/23 Grazyna Damian, NORBERT [address] [place] [address] Assigned Cancer Care Provider 05/25/23 documented as of this encounter
--- OUTSIDE RECORDS SUMMARY | 2023-11-14 15:11 | XMS_ITS | Encounter Summary ---
Author Organization [place] Address [address] [place] [address] Care Team Providers Care Winding Department Supervisor Name Role Phone [facility] Unavailable Jennifer Pond MD Primary Care Provider [facility] Primary Care Pro vider Dany Hirsch Primary Care Provider Johnie Farmer Primary Care Provider JobОлег bergeron MD Unavailable +[phone] Deven Schulte MD Unavailable [phone] Олег Kaiser MD Unavailable [phone] Loretta Elizalde PA-C Unavailable [phone] Олег Kaiser MD Unavailable +[phone] Loretta Elizalde PA-C Primary Care Provider Deven Schulte MD Unavailable [phone] Dong Craft MD Unavailable [phone] Dong Craft MD Unavailable [phone] Grazyna Damian CNP Unavailable [phone] Encounter Details Date Type Department Care Team (Late st Contact Info) Description 10/13/2015 MyC Medical Advice [address] [address] Ruth Leigh LPN Social History Tobacco Use [...] 7:30 AM CDT Office [facility] [address] [place] [address] Loretta Elizalde PA-C [address] [place] [address] documented as of this encounter Visit Diagnoses Not on filedocumented in this encounter Additional Health Concerns Infection Onset Date Last Indicated Resolved Time Rule Out COVID-19 10/09/2019 10/09/2019 10/09/2019 9:36 PM CDT Rule Out COVID-19 11/20/2019 11/20/2019 11/21/2019 5:10 PM CDT Rule Out COVID-19 11/25/2019 11/25/2019 11/26/2019 4:41 PM CDT Rule Out COVID-19 04/18/2020 04/18/2020 04/18/2020 4:22 PM SWITCH CLEANER COVID-19 04/18/2020 04/18/2020 05/09/2020 11:4 0 PM SWITCH CLEANER documented as of this encounter Care Teams Winding Department Supervisor Relationship Specialty Start Date End Date Jennifer Pond MD [address] [facility] [place] [address] PCP - General Internal Medicine 11/08/14 08/26/16 [facility] [address] [place], [place] 1997544 PCP - General 08/27/16 10/26/16 Dany Hirsch [address] [place] [address] PCP - General Family Practice 10/27/16 01/29/18 MarlenyJohnie [address] [place] [address] PCP - General Family Practice 01/30/18 09/24/22 Loretta Elizalde PA-C [address] [place] [address] PCP - General Family Medicine 09/25/[address] [id number] 06/14/11 08/26/16 Олег Kaiser MD [address] [place] [address] 285045 Urology 04/05/21 Deven Schulte MD [address] [place] [address] 006105 Assigned Surgical Provider 04/23/21 09/21/22 Олег Kaiser MD [address] [place] [address] Assigned Surgical Provider 04/16/21 04/22/21 Loretta Elizalde PA-C [address] [place] [address] Assigned PCP 09/22/22 Олег Kaiser MD [address] [place] [address] Assigned Surgical Provider 09/22/22 09/28/22 Deven Schulte MD [address] [place] [address] Assigned Surgical Provider 09/29/22 10/19/22 Dong Craft MD [address] [place] [address] MD Gómez 10/09/22 Dong Craft MD 9 [place] [address] Assigned Cancer Care Provider 11/24/22 05/24/23 Grazyna Damian, NORBERT [address] [place] [address]67 Assigned Cancer Care Provider 05/25/23 documented as of this encounter
--- OUTSIDE RECORDS SUMMARY | 2023-11-14 15:11 | XMS_ITS | Encounter Summary ---
Author Organization [place] Address [address] [facility] [place] [address] Care Team Providers Care Fisher Eel Name Role Phone [facility] Unavailable Kate Bradley PA-C Primary Care Pro vider [facility] Primary Care Isak calderon Jennifer Pond MD Primary Care Provider [facility] Primary Care Pro vider Dany Hirsch Primary Care Provider [phone] Johnie Farmer Primary Care Provider [phone] Олег Kaiser MD Unavailable +[phone] Deven Schulte MD Unavailable [phone] Олег Kaiser MD Unavailable +[phone] Loretta Elizalde PA-C Unavailable [phone] Олег Kaiser MD Unavailable +[phone] Loretta Elizalde PA-C Primary Care Provider [phone] Deven Schulte MD Unavailable [phone] Dong Craft MD Unavailable [phone] Dong Craft MD Unavailable +[phone] Grazyna Damian [facility] Unavailable [phone] Reason for Visit * Reason Comments Medication Refill Encounter Details Date Type Department Care Team (Late st Contact Info) Description 07/28/2014 Refill [facility] [address] [place] [address] Kate Bradley PA-C [facility] [address], [facility] [address] [place], [place] 402955 Medication Refill Social History Tobacco Use Types [...] 7:30 AM CDT [facility] [address] [place] [address] Loretta Elizalde PA-C [address] [place] [address] documented as of this encounter Visit Diagnoses Not on filedocumented in this encounter Additional Health Concerns Infection Onset Date Last Indicated Resolved Time Rule Out COVID-19 10/09/2019 10/09/2019 10/09/2019 9:36 PM CDT Rule Out COVID-19 11/20/2019 11/20/2019 11/21/2019 5:10 PM CDT Rule Out COVID-19 11/25/2019 11/25/2019 11/26/2019 4:41 PM CDT Rule Out COVID-19 04/18/2020 04/18/2020 04/18/2020 4:22 PM NURSING COORDINATOR COVID-19 04/18/2020 04/18/2020 05/09/2020 11:4 0 PM NURSING COORDINATOR documented as of this encounter Care Teams Fisher Eel Relationship Specialty Start Date End Date Kate Bradley PA-C [address] [place] [address] PCP - General Family Practice 09/22/13 10/27/14 [facility] [address] [facility] [place], [place] [address] PCP - General 10/28/14 11/07/14 Jennifer Pond MD [address] [facility] [place] [address] PCP - General Internal Medicine 11/08/14 08/26/16 [facility] [address] [place] [address] PCP - General 08/27/16 10/26/16 Dany Hirsch [address] [place] [address] PCP - General Family Practice 10/27/16 01/29/18 Johnie Farmer [address] [place] [address] PCP - General Family Practice 01/30/18 09/24/22 Loretta Elizalde PA-C [address] [place] [address] PCP - General Family Medicine 09/25/[address] [facility] [address] [place] [address] 06/14/11 08/26/16 Олег Kaiser MD [address] [place] [address] Urology 04/05/21 Deven Schulte MD [address] [place] [address] Assigned Surgical Provider 04/23/21 09/21/22 Олег Kaiser MD [address] [place] [address] Assigned Surgical Provider 04/16/21 04/22/21 Loretta Elizalde PA-C [address] [place], [place] 2563768 Assigned PCP 09/22/22 Олег Kaiser MD [address] [place] [address] Assigned Surgical Provider 09/22/22 09/28/22 Deven Schulte MD [address] [place] [address] 046125 Assigned Surgical Provider 09/29/22 10/19/22 Dong Craft MD [address] [place] [address] MD Gómez 10/09/22 Dong Craft MD [address] [place] [address] Assigned Cancer Care Provider 11/24/22 05/24/23 Grazyna Damian, EVENTS TRAFFIC CONTROLLER [address] [place] [address] Assigned Cancer Care Provider 05/25/23 documented as of this encounter
--- OUTSIDE RECORDS SUMMARY | 2023-11-14 15:11 | XMS_ITS | Encounter Summary ---
Author Organization [place] Address [address] [place] [address] Care Team Providers Care Automated Cutting Machine Operator Name Role Phone MarlenyJohnie Primary Care Provider Олег Kaiser MD Unavailable [phone] Deven Schulte MD Unavailable [phone] Олег Kaiser MD Unavailable +[phone] Loretta Elizalde PA-C Unavailable Олег Kaiser MD Unavailable +[phone] Loretta Elizalde PA-C Primary Care Provider Deven Schulte MD Unavailable [phone] Dong Craft MD Unavailable +[phone] Dong Craft MD Unavailable +[phone] Grazyna Damian CNP Unavailable [phone] Reason for Visit * Reason Onset Date Comments Appointment 04/11/2021 stent removal Encounter Details Date Type Department Care Team (Late st Contact Info) Description 04/11/2021 Telephone [facility] [address] [place] [address] Олег Kaiser MD [address] [place], [place] 76[address] Appointment (stent removal ) Social History Tobacco [...] COVID-19? No / Unsure 04/07/2021 11:09 PM UI SOFTWARE ENGINEER documented as of this encounter Miscellaneous Notes * Telephone Encounter - Araceli Degroot - 04/11/2021 12:32 PM CST [facility] Call Center Phone Message May a detailed message be left on voicemail: yes Reason for Call: Other: . pt is calling to schedule his stent removal, he had a procedure with 04/08/2021, please call Alex to schedule, thank you Action Taken: Message routed to: Other: uro Travel Screening: Not Applicable SOFTWARE ENGINEER documented in this encounter Plan of Treatment Upcoming Encounters Date Type Department Care Team (Late st Contact Info) Description 12/11/2023 7:30 AM CDT Office Visit [facility] [address] [place] [address] Loretta Elizalde PA-C [address] [place] [address] documented as of this encounter Visit Diagnoses Not on filedocumented in this encounter Care Teams Automated Cutting Machine Operator Relationship Specialty Start Date End Date Johnie Farmer PCP - General Family Practice 01/30/18 09/24/22 Loretta Elizalde PA-C [address] [place] [address] PCP - General Family Medicine 09/25/22 Олег Kaiser MD [address] [place] [address] Urology 04/05/21 Deven Schulte MD [address] [place] [address] 079725 Assigned Surgical Provider 04/23/21 Олег Kaiser MD [address] [place] [address] 12251 Assigned Surgical Provider 04/16/21 Loretta Elizalde PA-C [address] [place] [address] Assigned PCP 09/22/22 Олег Kaiser MD [address] [place] [address] 17957 Assigned Surgical Provider 09/22/2209/28/22 Deven Schulte MD [address] [place] [address] 159445 Assigned Surgical Provider 09/29/22 Dong Craft MD [address] [place] [address] 505755 MD Gómez 10/09/22 Dong Craft MD [address] [place] [address] 48870 Assigned Cancer Care Provider 11/24/22 05/24/23 Grazyna Damian CNP [address] [address] Assigned Cancer Care Provider 05/25/23 documented as of this encounter
--- OUTSIDE RECORDS SUMMARY | 2023-11-14 15:11 | XMS_ITS | Encounter Summary ---
Author Organization [place] Address [address] [place] [address] Care Team Providers Care Battery Loader Name Role Phone [facility] Unavailable Jennifer Pond MD Primary Care Provider [facility] Primary Care Pro vider Dany Hirsch Primary Care Provider [phone] Johnie Farmer Primary Care Provider JobОлег bergeron MD Unavailable +[phone] Deven Schulte MD Unavailable [phone] Олег Kaiser MD Unavailable [phone] Loretta Elizalde PA-C Unavailable [phone] Олег Kaiser MD Unavailable +[phone] Loretta Elizalde PA-C Primary Care Provider Deven Schulte MD Unavailable [phone] Dong Craft MD Unavailable [phone] Dong Craft MD Unavailable [phone] Grazyna Damian CNP Unavailable [phone] Encounter Details Date Type Department Care Team (Late st Contact Info) Description 05/02/2015 MyC Medical Advice [address] [address] Ruth Leigh LPN Social History Tobacco Use [...] AM CDT Office Visit [facility] [address] [place] [address] Loretta Elizalde PA-C [address] [place] [address] documented as of this encounter Visit Diagnoses Not on filedocumented in this encounter Additional Health Concerns Infection Onset Date Last Indicated Resolved Time Rule Out COVID-19 10/09/2019 10/09/2019 10/09/2019 9:36 PM CDT Rule Out COVID-19 11/20/2019 11/20/2019 11/21/2019 5:10 PM CDT Rule Out COVID-19 11/25/2019 11/25/2019 11/26/2019 4:41 PM CDT Rule Out COVID-19 04/18/2020 04/18/2020 04/18/2020 4:22 PM FLIGHT ENGINEER INSTRUCTOR COVID-19 04/18/2020 04/18/2020 05/09/2020 11:4 0 PM FLIGHT ENGINEER INSTRUCTOR documented as of this encounter Care Teams Battery Loader Relationship Specialty Start Date End Date Jennifer Pond MD [address] [facility] [place] [address] PCP - General Internal Medicine 11/08/14 08/26/16 [facility] [address] [place], [place] [id number] PCP - General 08/27/16 10/26/16 Dany Hirsch [address] [place] [address] PCP - General Family Practice 10/27/16 01/29/18 MarlenyJohnie [address] [place] [address] PCP - General Family Practice 01/30/18 09/24/22 Loretta Elizalde PA-C [address] [place] [address] PCP - General Family Medicine 09/25/[address] [id number] 06/14/11 08/26/16 Олег Kaiser MD [address] [place] [address] 926135 Urology 04/05/21 Deven Schulte MD [address] [place] [address] 409845 Assigned Surgical Provider 04/23/21 09/21/22 Олег Kaiser MD [address] [place] [address]55 Assigned Surgical Provider 04/16/21 04/22/21 Loretta Elizalde PA-C [address] [place] [address] Assigned PCP 09/22/22 Олег Kaiser MD 420 [place] [address] Assigned Surgical Provider 09/22/22 09/28/22 Deven Schulte MD [address] [place] [address]382 Assigned Surgical Provider 09/29/22 10/19/22 Dong Craft MD [address] [place] [address] MD Gómez 10/09/22 Dong Craft MD 9 [place] [address] Assigned Cancer Care Provider 11/24/22 05/24/23 Grazyna Damian, NORBERT [address] [place] [address] Assigned Cancer Care Provider 05/25/23 documented as of this encounter
--- OUTSIDE RECORDS SUMMARY | 2023-11-14 15:11 | XMS_ITS | Encounter Summary ---
Author Organization [place] Address [address] [facility] [place] [address] Care Team Providers Care Fagot Maker Name Role Phone Олег Kaiser MD Unavailable [phone] Loretta Elizalde PA-C Unavailable [phone] Loretta Elizalde PA-C Primary Care Provider [phone] Dong Craft MD Unavailable [phone] Dong Craft MD Unavailable [phone] Grazyna Damian CNP Unavailable [phone] Encounter Details Date Type Department Care Team (Late st Contact Info) Description 12/06/2022 [facility]ology Clinic [address] 4th [place] [address] [facility] Social History Tobacco Use Types Packs/Day [...] Office Visit [facility] [address] [place] [address] Loretta Elizalde PA-C [address] [place] [address] documented as of this encounter Visit Diagnoses Not on filedocumented in this encounter Additional Health Concerns Assessment Noted Time PHQ-9 Depression Total Score: 2 09/12/19 7:51 AM CDT documented as of this encounter Care Teams Fagot Maker Relationship Specialty Start Date End Date Loretta Elizalde PA-C [address] [place] [address] PCP - General Family Medicine 09/25/22 Олег Kaiser MD [address] [place] [address] Urology 04/05/21 Loretta Elizalde PA-C [address] [place] [address] Assigned PCP 09/22/22 Dong Craft MD [address] [place] [address] Hematology 10/09/22 Dong Craft MD [address] [place] [address] 974955 Assigned Cancer Care Provider 11/24/22 05/24/23 Grazyna Damian CNP [address] [place] [address] [id number] Assigned Cancer Care Provider 05/25/23 documented as of this encounter
--- OUTSIDE RECORDS SUMMARY | 2023-11-14 15:11 | XMS_ITS | Encounter Summary ---
Author Organization [place] Address [address] [facility] [place] [address] Care Team Providers Care Processing Clerk Name Role Phone [facility] Unavailable Jennifer Pond MD Primary Care Provider [facility] Primary Care Pro vider Dany Hirsch Primary Care Provider Johnie Farmer Primary Care Provider JobОлег bergeron MD Unavailable +[phone] Deven Schulte MD Unavailable [phone] Олег Kaiser MD Unavailable [phone] Loretta Elizalde PA-C Unavailable [phone] Олег Kaiser MD Unavailable +[phone] Loretta Elizalde PA-C Primary Care Provider Deven Schulte MD Unavailable [phone] Dong Craft MD Unavailable [phone] Dong Craft MD Unavailable [phone] Grazyna Damian CNP Unavailable [phone] Encounter Details Date Type Department Care Team (Late st Contact Info) Description 10/13/2015 MyC Medical Advice [address] [address] Ruth Leigh LPN Social History Tobacco Use [...] Description 12/11/2023 7:30 AM CDT Office Visit [facility] [address] [place] [address] Loretta Elizalde PA-C [address] [place] [address] documented as of this encounter Visit Diagnoses Not on filedocumented in this encounter Additional Health Concerns Infection Onset Date Last Indicated Resolved Time Rule Out COVID-19 10/09/2019 10/09/2019 10/09/2019 9:36 PM CDT Rule Out COVID-19 11/20/2019 11/20/2019 11/21/2019 5:10 PM CDT Rule Out COVID-19 11/25/2019 11/25/2019 11/26/2019 4:41 PM CDT Rule Out COVID-19 04/18/2020 04/18/2020 04/18/2020 4:22 PM STOCK FEEDER COVID-19 04/18/2020 04/18/2020 05/09/2020 11:4 0 PM STOCK FEEDER documented as of this encounter Care Teams Processing Clerk Relationship Specialty Start Date End Date Jennifer Pond MD [address] [facility] [place] [address] PCP - General Internal Medicine 11/08/14 08/26/16 [facility] [address] [place], [place] 8597644 PCP - General 08/27/16 10/26/16 Dany Hirsch [address] [place] [address] PCP - General Family Practice 10/27/16 01/29/18 MarlenyJohnie [address] [place] [address] PCP - General Family Practice 01/30/18 09/24/22 Loretta Elizalde PA-C [address] [place] [address] PCP - General Family Medicine 09/25/[address] [id number] 06/14/11 08/26/16 Олег Kaiser MD [address] [place] [address] 289235 Urology 04/05/21 Deven Schulte MD [address] [place] [address] 895055 Assigned Surgical Provider 04/23/21 09/21/22 Олег Kaiesr MD [address] [place] [address] Assigned Surgical Provider 04/16/21 04/22/21 Loretta Elizalde PA-C [address] [place] [address] Assigned PCP 09/22/22 Олег Kaiser MD 420 [place] [address] Assigned Surgical Provider 09/22/22 09/28/22 Deven Schulte MD [address] [place] [address] Assigned Surgical Provider 09/29/22 10/19/22 Dong Craft MD [address] [place] [address] MD Gómez 10/09/22 Dong Craft MD 9 [place] [address] Assigned Cancer Care Provider 11/24/22 05/24/23 Grazyna Damian, NORBERT [address] [place] [address] Assigned Cancer Care Provider 05/25/23 documented as of this encounter
--- OUTSIDE RECORDS SUMMARY | 2023-11-14 15:11 | XMS_ITS | Encounter Summary ---
Author Organization [place] Address [address] [facility] [place] [address] Care Team Providers Care Manager Regional Name Role Phone MarlenyJohnie Primary Care Provider [phone] Олег Kaiser MD Unavailable [phone] Deven Schulte MD Unavailable [phone] Loretta Elizalde PA-C Unavailable [phone] Олег Kaiser MD Unavailable +[phone] Loretta Elizalde PA-C Primary Care Provider [phone] Deven Schulte MD Unavailable [phone] Dong Craft MD Unavailable [phone] Dong Craft MD Unavailable [phone] Grazyna Damian CNP Unavailable [phone] Encounter Details Date Type Department Care [...] COVID-19? No / Unsure 07/15/2021 6:20 PM PRIVATE EYE documented as of this encounter Plan of Treatment Upcoming Encounters Date Type Department Care Team (Late st Contact Info) Description 12/11/2023 7:30 AM CDT Office Visit [facility] [address] [place] [address] Loretta Elizalde PA-C [address] [place] [address] documented as of this encounter Visit Diagnoses Not on filedocumented in this encounter Care Teams Manager Regional Relationship Specialty Start Date End Date Johnie Farmer PCP - General Family Practice 01/30/18 09/24/22 Loretta Elizalde PA-C [address] [place] [address] PCP - General Family Medicine 09/25/22 Олег Kaiser MD [address] [place] [address] [id number] Urology 04/05/21 Deven Schulte MD [address] [place] [address] 532755 Assigned Surgical Provider 04/23/21 Loretta Elizalde PA-C [address] [place] [address] Assigned PCP 09/22/22 Олег Kaiser MD [address] [place] [address] 193855 Assigned Surgical Provider 09/22/2209/28/22 Deven Schulte MD [address] [place] [address] 842555 Assigned Surgical Provider 09/29/22 Dong Craft MD [address] [place] [address] [id number] MD Dalia 10/09/22 Dong Craft MD [address] [place] [address] [id number] Assigned Cancer Care Provider 11/24/22 05/24/23 Grazyna Damian CNP [address] [place] [address] 480 [place] [address] Assigned Cancer Care Provider 05/25/23 documented as of this encounter
--- OUTSIDE RECORDS SUMMARY | 2023-11-14 15:11 | XMS_ITS | Encounter Summary ---
Author Organization [place] Address [address] [facility] [place] [address] Care Team Providers Care Bottle Carrier Name Role Phone Олег Kaiser MD Unavailable [phone] Loretta Elizalde PA-C Unavailable [phone] Loretta Elizalde PA-C Primary Care Provider [phone] Dong Craft MD Unavailable [phone] Dong Craft MD Unavailable [phone] Grazyna Damian CNP Unavailable [phone] Encounter Details Date Type Department Care Team (Late Contact Info) Description 12/10/2022 [facility] Medical Advice [facility] Gastroenterology Clinic [address]th [place] [address] Vibha Ernst Social History Tobacco [...] Description 12/11/2023 7:30 AM CDT Office Visit [facility] [address] [place] [address] Loretta Elizalde PA-C [address] [place] [address] documented as of this encounter Visit Diagnoses Not on filedocumented in this encounter Additional Health Concerns Assessment Noted Time PHQ-9 Depression Total Score: 2 09/12/19 7:51 AM CDT documented as of this encounter Care Teams Bottle Carrier Relationship Specialty Start Date End Date Loretta Elizalde PA-C [address] [place] [address] PCP - General Family Medicine 09/25/22 Олег Kaiser MD [address] [place] [address] Urology 04/05/21 Loretta Elizalde PA-C [address] [place] [address] Assigned PCP 09/22/22 Dong Craft MD [address] [place] [address] 681785 Hematology 10/09/22 Dong Craft MD [address] [place] [address] 434995 Assigned Cancer Care Provider 11/24/22 05/24/23 Grazyna Damian CNP [address] [place] [address] 555905 Assigned Cancer Care Provider 05/25/23 documented as of this encounter
--- OUTSIDE RECORDS SUMMARY | 2023-11-14 15:11 | XMS_ITS | Encounter Summary ---
Author Organization [place] Address [address] [facility] [address] Care Team Providers Care Tariff Compiler Name Role Phone Олег Kaiser MD Unavailable [phone] Loretta Elizalde PA-C Unavailable [phone] Loretta Elizalde PA-C Primary Care Provider [phone] Dong Craft MD Unavailable [phone] Dong Craft MD Unavailable [phone] Grazyna Damian CNP Unavailable [phone] Encounter Details Date Type Department Care Team (Late st Contact Info) Description 02/01/2023 [facility] [address] [place] [address] Bhavik Coelho MA Social History [...] Description 12/11/2023 7:30 AM CDT [facility] [address] [place] [address] Loretta Elizalde PA-C [address] [place], [place] 0089868 documented as of this encounter Visit Diagnoses Not on filedocumented in this encounter Additional Health Concerns Assessment Noted Time PHQ-9 Depression Total Score: 2 09/12/19 23 7:51 AM CDT documented as of this encounter Care Teams Tariff Compiler Relationship Specialty Start Date End Date Loretta Elizalde PA-C [address] [place] [address] PCP - General Family Medicine 09/25/22 Олег Kaiser MD [address] [place] [address] Urology 04/05/21 Loretta Elizalde PA-C [address] [place] [address] Assigned PCP 09/22/22 Dong Craft MD [address] [place] [address] [facility] 10/09/22 Dong Craft MD [address] [place] [address]187 Assigned Cancer Care Provider 11/24/22 05/24/23 Grazyna Damian CNP [address] [place] [address] Assigned Cancer Care Provider 05/25/23 documented as of this encounter
--- OUTSIDE RECORDS SUMMARY | 2023-11-14 15:11 | XMS_ITS | Encounter Summary ---
Author Organization [place] Address [address] [facility] [place] [address] Care Team Providers Care Global Engineering Manager Name Role Phone Олег Kaiser MD Unavailable [phone] Loretta Elizalde PA-C Unavailable [phone] Lorteta Elizalde PA-C Primary Care Provider [phone] Dong Craft MD Unavailable [phone] Dong Craft MD Unavailable [phone] Grazyna Damian CNP Unavailable [phone] Encounter Details Date Type Department Care Team (Late st Contact Info) Description 03/25/2023 [facility] [address] [place] [address] Faith Cano Social History Tobacco [...] Description 12/11/2023 7:30 AM CDT [facility] [address] [place] [address] Loretta Elizalde PA-C [address] [place] [address] documented as of this encounter Visit Diagnoses Not on filedocumented in this encounter Additional Health Concerns Assessment Noted Time PHQ-9 Depression Total Score: 2 09/12/19 23 7:51 AM CDT documented as of this encounter Care Teams Global Engineering Manager Relationship Specialty Start Date End Date Loretta Elizalde PA-C [address] [place] [address] PCP - General Family Medicine 09/25/22 Олег Kaiser MD [address] [place] [address] 169345 Urology 04/05/21 Loretta Elizalde PA-C [address] [place] [address] Assigned PCP 09/22/22 Dong Craft MD [address] [place] [address] 028775 Hematology 10/09/22 Dong Craft MD [address] [place] [address] Assigned Cancer Care Provider 11/24/22 05/24/23 Grazyna Damian CNP [address] [place] [address] Assigned Cancer Care Provider 05/25/23 documented as of this encounter
--- OUTSIDE RECORDS SUMMARY | 2023-11-14 15:11 | XMS_ITS | Encounter Summary ---
Author Organization [place] Address [address] [facility] [place] [address] Care Team Providers Care Vice President Consulting Services Name Role Phone [facility] Unavailable Jennifer Pond MD Primary Care Provider [facility] Primary Care Pro vider Dany Hirsch Primary Care Provider Johnie Farmer Primary Care Provider JobОлег bergeron MD Unavailable [phone] Deven Schulte MD Unavailable [phone] Олег Kaiser MD Unavailable [phone] Loretta Elizalde PA-C Unavailable [phone] Олег Kaiser MD Unavailable +[phone] Loretta Elizalde PA-C Primary Care Provider Deven Schulte MD Unavailable [phone] Dong Craft MD Unavailable [phone] Dong Craft MD Unavailable [phone] Grazyna Damian CNP Unavailable [phone] Encounter Details Date Type Department Care Team (Late st Contact Info) Description 06/16/2015 MyC Medical Advice [address] [address] Ruth Leigh LPN Social History Tobacco Use [...] Description 12/11/2023 7:30 AM CDT Office Visit [facility] [address] [place] [address] Loretta Elizalde PA-C [address] [place] [address] documented as of this encounter Visit Diagnoses Not on filedocumented in this encounter Additional Health Concerns Infection Onset Date Last Indicated Resolved Time Rule Out COVID-19 10/09/2019 10/09/2019 10/09/2019 9:36 PM CDT Rule Out COVID-19 11/20/2019 11/20/2019 11/21/2019 5:10 PM CDT Rule Out COVID-19 11/25/2019 11/25/2019 11/26/2019 4:41 PM CDT Rule Out COVID-19 04/18/2020 04/18/2020 04/18/2020 4:22 PM PRESS SUPERVISOR COVID-19 04/18/2020 04/18/2020 05/09/2020 11:4 0 PM PRESS SUPERVISOR documented as of this encounter Care Teams Vice President Consulting Services Relationship Specialty Start Date End Date Jennifer Pond MD [address] [facility] [place] [address] PCP - General Internal Medicine 11/08/14 08/26/16 [facility] [address] [place], [place] [id number] PCP - General 08/27/16 10/26/16 Dany Hirsch [address] [place] [address] PCP - General Family Practice 10/27/16 01/29/18 MarlenyJohnie [address] [place] [address] PCP - General Family Practice 01/30/18 09/24/22 Loretta Elizalde PA-C [address] [place] [address] PCP - General Family Medicine 09/25/[address] [id number] 06/14/11 08/26/16 Олег Kaiser MD [address] [place] [address] 675465 Urology 04/05/21 Deven Schulte MD [address] [place] [address] 223185 Assigned Surgical Provider 04/23/21 09/21/22 Олег Kaiser MD [address] [place] [address] Assigned Surgical Provider 04/16/21 04/22/21 Loretta Elizalde PA-C [address] [place] [address] Assigned PCP 09/22/22 Олег Kaiser MD 420 [place] [address] Assigned Surgical Provider 09/22/22 09/28/22 Deven Schulte MD [address] [place] [address] Assigned Surgical Provider 09/29/22 10/19/22 Dong Craft MD [address] [place] [address] MD Gómez 10/09/22 Dong Craft MD 9 [place] [address] Assigned Cancer Care Provider 11/24/22 05/24/23 Grazyna Damian, NORBERT [address] [place] [address] Assigned Cancer Care Provider 05/25/23 documented as of this encounter
--- OUTSIDE RECORDS SUMMARY | 2023-11-14 15:12 | XMS_ITS | Clinical Summary ---
Author Organization [facility] Address [address] [place] [address] Care Team Providers Care Patient Observation Assistant Name Role Phone Johnie Farmer Primary Care Provider [phone] Clinic, Not Listed Unavailable Unavailable Allergies No [...] 09/22/2013 S/P gastric bypass 06/25/2008 Overview: ~2001, [facility], Dr Zhou? Social History Tobacco Use [...] 8.2(H) <5.7 % 10/03/2018 12:22 PM CDT [facility] EAG (EST. AVERAGE GLUCOSE) 189(H) <117 mg/dL 10/03/2018 12:22 PM CDT [facility] Blood 10/03/2018 6:46 AM CDT 10/03/2018 7:16 AM CDT Peggy Caba MD CHEMISTRY ORDERABLE [facility] [address] [place] [address] * (ABNORMAL) Basic Metabolic Profile (10/02/2018 1:35 PM CDT) Pathologist [facility] Sodium 141 136 - 145 mmol/L 10/02/2018 2:09 PM CDT [facility] Potassium 3.8 3.5 - 5.1 mmol/L 10/02/2018 2:09 PM T [facility] Chloride 110 98 - 112 mmol/L 10/02/2018 2:09 PM T [facility] Carbon Dioxide 24 21 - 32 mmol/L 10/02/2018 2:09 PM T [facility] BUN (Urea Nitro) 8 7 - 24 mg/dL 10/02/2018 2:09 PM CDT [facility] Creatinine 0.96 0.70 - 1.30 mg/dL 10/02/2018 2:09 PM CDT [facility] Est GFR (CKD-EPI) >60 >60 mL/min 10/02/2018 2:09 PM CDT [facility] EST GFR IF AM >60 >60 mL/min 10/02/2018 2:09 PM CDT [facility] Glucose 113(H) 74 - 106 mg/dL 10/02/2018 2:09 PM CDT [facility] Calcium, Serum 7.8(L) 8.5 - 10.1 mg/dL 10/02/2018 2:09 PM CDT [facility] Anion Gap 7.0 0.0 - 15.0 mmol/L 10/02/2018 2:09 PM CDT [facility] Blood 10/02/2018 1:35 PM CDT 10/02/2018 1:45 PM CDT Linn Jesus PA-C CHEMISTRY ORDERABLE [facility] [address] [place] [address] from Last 3 Months or Most Recently Relevant to Health Maintenance Advance Directives For more information, please contact: [phone] * Full Code (Latest Code Status on File) Date Activated Date Inactivated Comments 10/02/2018 6:16 PM 10/03/2018 10:01 PM Question Answer Comments How was code status determined? Patient Care Teams Patient Observation Assistant Relationship Specialty Start Date End Date Johnie Farmer [address] [place] [address] PCP - General Family Medicine 09/30/18 Clinic, Not Listed PCP - Primary Care Clinic 12/25/19
--- OUTSIDE RECORDS SUMMARY | 2023-11-14 15:12 | XMS_ITS | Encounter Summary ---
[facility] Address [address], [place] [address] Care Team Providers Care Veterans Service Representative Name Role Phone Johnie Farmer MD Primary Care Provider [phone] Encounter Details Date Type Department Care Team [...] R/O COVID19 04/18/2020 04/18/2020 04/19/2020 5:02 PM BEHAVIORAL TECHNICIAN COVID19 04/18/2020 04/18/2020 05/09/2020 3:17 AM BEHAVIORAL TECHNICIAN documented as of this encounter Care Teams Veterans Service Representative Relationship Specialty [place] [address] [place] [address] PCP - General Family Practice 01/30/18 documented as of this encounter
--- OUTSIDE RECORDS SUMMARY | 2023-11-14 15:12 | XMS_ITS | Referral Summary ---
Author Organization [facility] Address [address] [place] [address] Care Team Providers Care Digital Sales Planner Name Role Phone Johnie Farmer Primary Care Provider [phone] Clinic, Not Listed Unavailable Unavailable Allergies No [...] 09/22/2013 S/P gastric bypass 06/25/2008 Overview: ~2001, [facility], Dr Zhou? Social History Tobacco Use [...] HGB) 8.2(H) <5.7 % 10/03/2018 12:22 PM [facility] EAG (EST. AVERAGE GLUCOSE) 189(H) <117 mg/dL 10/03/2018 12:22 PM [facility] Blood 10/03/2018 6:46 AM CDT 10/03/2018 7:16 AM CDT Peggy Caba MD CHEMISTRY ORDERABLE [facility] [address] [place] [address] * (ABNORMAL) Basic Metabolic Profile (10/02/2018 1:35 PM CDT) Sodium 141 136 - 145 mmol/L 10/02/2018 2:09 PM [facility] Potassium 3.8 3.5 - 5.1 mmol/L 10/02/2018 2:09 PM [facility] Chloride 110 98 - 112 mmol/L 10/02/2018 2:09 PM [facility] Carbon Dioxide 24 21 - 32 mmol/L 10/02/2018 2:09 PM [facility] BUN (Urea Nitro) 8 7 - 24 mg/dL 10/02/2018 2:09 PM [facility] Creatinine 0.96 0.70 - 1.30 mg/dL 10/02/2018 2:09 PM [facility] Est GFR (CKD-EPI) >60 >60 mL/min 10/02/2018 2:09 PM [facility] EST GFR IF AM >60 >60 mL/min 10/02/2018 2:09 PM [facility] Glucose 113(H) 74 - 106 mg/dL 10/02/2018 2:09 PM [facility] Calcium, Serum 7.8(L) 8.5 - 10.1 mg/dL 10/02/2018 2:09 PM [facility] Anion Gap 7.0 0.0 - 15.0 mmol/L 10/02/2018 2:09 PM [facility] Blood 10/02/2018 1:35 PM CDT 10/02/2018 1:45 PM CDT Linn Jesus PA-C CHEMISTRY ORDERABLE [facility] [address] [place] [address] from Last 3 Months or Most Recently Relevant to Health Maintenance Advance Directives For more information, please contact: [phone] * Full Code (Latest Code Status on File) Date Activated Date Inactivated Comments 10/02/2018 6:16 PM 10/03/2018 10:01 PM Question Answer Comments How was code status determined? Patient Care Teams Digital Sales Planner Relationship Specialty Start Date End Date Johnie Farmer [address] [place] [address] PCP - General Family Medicine 09/30/18 Clinic, Not Listed PCP - Primary Care Clinic 12/25/19
--- OUTSIDE RECORDS SUMMARY | 2023-11-14 15:12 | XMS_ITS | Encounter Summary ---
Author Organization [facility] Address [address], [place] [address] Care Team Providers Care Seat Mender Name Role Phone Johnie Farmer MD Primary Care Provider [phone] Encounter Details Date Type Department Care Team (Late st Contact Info) Description 09/26/2013 Outside Hospital External to [facility], Provider HISTORY PHYSICAL Social History Tobacco Use [...] R/O COVID19 04/18/2020 04/18/2020 04/19/2020 5:02 PM SOCIAL WORKER PSYCHIATRIC COVID19 04/18/2020 04/18/2020 05/09/2020 3:17 AM SOCIAL WORKER PSYCHIATRIC documented as of this encounter Care Teams Seat Mender Relationship Specialty [place] [address] [place] [address] PCP - General Family Practice 01/30/18 documented as of this encounter
--- OUTSIDE RECORDS SUMMARY | 2023-11-14 15:12 | XMS_ITS | Encounter Summary ---
Author Organization [facility] Address [address] [address] Care Team Providers Care Shopper Name Role Phone Johnie Farmer MD Primary Care Provider [phone] Encounter Details Date Type Department Care Team (Late st Contact Info) Description 09/25/2013 Emergency Room External to [facility], Provider DEPRESSION Social History Tobacco [...] R/O COVID19 04/18/2020 04/18/2020 04/19/2020 5:02 PM ASSEMBLER LAY UPS COVID19 04/18/2020 04/18/2020 05/09/2020 3:17 AM ASSEMBLER LAY [employer] documented as of this encounter Care Teams Shopper Relationship Specialty [place] [address] [place] [address] PCP - General Family Practice 01/30/18 documented as of this encounter
--- OUTSIDE RECORDS SUMMARY | 2023-11-14 15:12 | XMS_ITS | Encounter Summary ---
Author Organization [facility] Address [address], [place] [address] Care Team Providers Care Mail Clerk Bills Name Role Phone Johnie Farmer MD Primary Care Provider [phone] Encounter Details Date Type Department Care Team [...] R/O COVID19 04/18/2020 04/18/2020 04/19/2020 5:02 PM FREIGHT CAR CLEANER DELTA SYSTEM COVID19 04/18/2020 04/18/2020 05/09/2020 3:17 AM FREIGHT CAR CLEANER DELTA SYSTEM documented as of this encounter Care Teams Mail Clerk Bills Relationship Specialty [place] [address] [place] [address] PCP - General Family Practice 01/30/18 documented as of this encounter
--- OUTSIDE RECORDS SUMMARY | 2023-11-14 15:12 | XMS_ITS | Encounter Summary ---
[facility] Organization [facility] Address [address], [place] [address] Care Team Providers Care Liner Worker Name Role Phone Johnie Farmer MD Primary Care Provider [phone] Encounter Details Date Type Department Care Team (Late st Contact Info) Description 09/27/2013 Outside Hospital External to [facility], Provider CONSULT Social History Tobacco Use [...] R/O COVID19 04/18/2020 04/18/2020 04/19/2020 5:02 PM SPECIAL CERTIFICATE DICTATOR COVID19 04/18/2020 04/18/2020 05/09/2020 3:17 AM SPECIAL CERTIFICATE DICTATOR documented as of this encounter Care Teams Liner Worker Relationship Specialty [place] [address] [place] [address] PCP - General Family Practice 01/30/18 documented as of this encounter
--- OUTSIDE RECORDS SUMMARY | 2023-11-14 15:12 | XMS_ITS | Encounter Summary ---
Author Organization [facility] Address [address] [address] Care Team Providers Care Manufacturing Systems Engineer Name Role Phone Johnie Farmer MD Primary Care Provider [phone] Encounter Details Date Type Department Care Team [...] Funes, Provider - 04/03/2013 12:00 AM CST [place] ACCOUNT REPRESENTATIVE documented in this encounter Plan of Treatment Not on file documented as of this encounter Visit Diagnoses Not on filedocumented in this encounter Additional Health Concerns Infection Onset Date Last Indicated Resolved Time R/O COVID19 04/18/2020 04/18/2020 04/19/2020 5:02 PM RETAIL ACCOUNT REPRESENTATIVE COVID19 04/18/2020 04/18/2020 05/09/2020 3:17 AM RETAIL ACCOUNT REPRESENTATIVE documented as of this encounter Care Teams Manufacturing Systems Engineer Relationship Specialty [place] [address] [place] [address] PCP - General Family Practice 01/30/18 documented as of this encounter
--- OUTSIDE RECORDS SUMMARY | 2023-11-14 15:12 | XMS_ITS | Continuity of Care Document ---
Author Organization [facility] Address [address] [address] [place] [address] Phone Care Team Providers Care Freight Associate Name Role Phone Wagner Jain MD Unavailable Unavailabl e Allergies, Adverse Reactions, Alerts Substance Reaction Status Criticality No Known Allergies Active No Inform ation Medications Medication Instructions Dosage Effective Dates (start - stop) Status Comments nortriptyline 10 mg capsule take 1 capsule by oral route every day at bedtime 10 MG - Active fluoxetine 40 mg capsule take 1 capsule by oral route every day in the morning 40 MG - Active IRON (unknown strength) Not Available - Active lisinopril 10 mg tablet take 1 tablet by oral route every day 10 MG - Active metformin 500 mg tablet take 2 tablet by oral route every day with morning and evening meals 1000 MG - Active BREO ELLIPTA (unknown strength) inhale 1 puff by inhalation route every day at the same time each day Not Available - Active simvastatin 10 mg tablet take 1 tablet by oral route every day in the evening 10 MG - Active Protonix 20 mg tablet,delayed release take 1 tablet by oral route every day 20 MG - Active Procedures Procedure Date Offic/outpt E&m Estab Mod-hi 2 23 Subsqt Hosp-da E&m Minr Compl 3 Init Inpt Cons New/est Mod-hi 3 Colonoscopy Flex; Dx (sep Pro) 23 Moderate Sedation, Initial 15 minutes Ma Offic/outpt E&m Estab Mod-hi 2 19 Init Inpt Cons New/est Mod-hi 9 Ugi Endo; Dx W/wo Collec Specm 19 Advance Directives Directive Yes / No Effective Date File Name No Information Encounters Encounter Description Practice Location Reason(s) For Visit Diagnoses Date Provider Providers Copied on Encounter [facility], [address] [address], [place], [id number], [place] tel:[phone] [facility] No Information 4 Jamshid Edward. [address] [facility], [facility] [address], [place], [id number], [place]. tel:[phone] [facility], [address] [address], [facility] [place], [id number], [place] tel:[phone] [facility] No Information 3 Lina Mota. [address] [facility], [address], [id number], [place]. tel:[phone] Offic/outpt E&m Estab Mod-hi 2 [facility], [address] [address], [place], [id number], [place] tel:[phone] [facility] GI Symptoms or Concerns (chief complaint) Abdominal pain, chronic, epigastricOther iron deficiency anemias 3 Lina Mota. [address] [facility], [address], [id number], [place]. tel:[phone] Referring Provider: Referral Self, USE FOR SELF REFERRALS. Subsqt Hosp-da E&m Minr Compl [facility], [address] [address], [place], [id number], [place] tel:[phone] [facility] No Information 3 Joslyn Sal. [address] [facility], [facility] [address], [place], [id number], [place]. tel:[phone] Referring Provider: Loretta JUNE, [address] [place], [address]. tel:[phone] Init Inpt Cons New/est Mod-hi [facility], [address] [address], [place], [id number], [place] tel:[phone] [facility] No Information 3 Deidre Steele. [address] [place] [address], [id number], [place]. tel:[phone] Referring Provider: Loretta Elizalde PAC, [address] [place], [address]. tel:[phone] [facility], [address] [address], [place], [id number], [place] tel:[phone] [facility] No Information 3 Deidre Steele. [address] [place] [address], [id number], [place]. [phone] [facility], [address] [address], [place], [id number], [place] tel:[phone] [facility] No Information 0 No Information Offic/outpt E&m Estab Mod-hi 2 [facility], [address] [address], [place], [id number], [place] tel:[phone] [facility] GI Symptoms or Concerns (chief complaint) Abdominal pain, chronic, epigastricFatty liverDietary counseling and surveillanceEsse ntial (primary) hypertension 9 No Information Referring Provider: Referral Self, USE FOR SELF REFERRALS. Init Inpt Cons New/est Mod-hi [facility], [address] [address], [place], [id number], [place] tel:[phone] [facility] No Information 9 Magno Sandra. [address] [facility], [address], [id number], [place]. tel:[phone] Referring Provider: Boaz Parisi, [address] [place] [address] [address], [place], [address] . tel:[phone] Family History Family Member Type Diagnosis Age At Onset No Information Immunizations Vaccine Date Status Comments Pneumococcal conjugate vacci ne 20-valent (PCV20), polysaccharide [id number] conjugate, adjuvant, preservative free administered Note: [facility] bi-direct ional interface ; Source: Other Registry Afluria Qd administered Note: [facility] bi-directional interface ; Source: Other Registry SARS-COV-2 (COVID-19) vaccin e, mRNA, spike protein, LNP, bivalent booster, preservative free, 30 mcg/0.3 mL dose, blake-sucrose formulation administered Note: [facility] bi-d irectional interface ; Source: Other Registry tetanus toxoid, reduced diphtheria toxoid, and acellular pertussis vaccine, adsorbed administered Note: [facility] b i-directional interface ; Source: Other Registry SARS-COV-2 (COVID-19) vaccin e, mRNA, spike protein, LNP, preservative free, 30 mcg/0.3mL dose, blake-sucrose formulation administered Note: MII C bi- directional interface ; Source: Other Registry Seasonal, quadrivalent, recombinant, injectable influenza vaccine, preservative free administered Note: [facility] bi -directional interface ; Source: Other Registry SARS-COV-2 (COVID-19) vaccin e, mRNA, spike protein, LNP, preservative free, 30 mcg/0.3mL dose administered Note: [facility] bi-direct ional interface ; Source: Other Registry SARS-COV-2 (COVID-19) vaccin e, mRNA, spike protein, LNP, preservative free, 30 mcg/0.3mL dose administered Note: [facility] bi-direct ional interface ; Source: Other Registry influenza virus vaccine, unspecified formulation administered Note: [facility] bi-di rectional interface ; Source: Other Registry Afluria Qd administered Note: [facility] bi-directional interface ; Source: Other Registry Afluria Qd administered Note: M [facility] bi-directional interface ; Source: Other Registry Afluria Qd administered Note: M [facility] bi-directional interface ; Source: Other Registry Afluria Qd administered Note: M [facility] bi-directional interface ; Source: Other Registry Afluria Qd administered Note: M [facility] bi-directional interface ; Source: Other Registry Afluria Qd administered Note: M [facility] bi-directional interface ; Source: Other Registry Afluria Qd administered Note: M [facility] bi-directional interface ; Source: Other Registry Afluria Qd administered Note: M [facility] bi-directional interface ; Source: Other Registry Engerix-B administered Note: [facility] bi-d irectional interface ; Source: Other Registry Influenza, seasonal, injectable administe red Note: [facility] bi- directional interface ; Source: Other Registry Engerix-B administered Note: [facility] bi-d irectional interface ; Source: Other Registry Engerix-B administered Note: [facility] bi-d irectional interface ; Source: Other Registry Influenza, seasonal, injecta ble, preservative free administered Note: [facility] bi-direct ional interface ; Source: Other Registry Pneumovax 23 administered Note: [facility] bi-d irectional interface ; Source: Other Registry tetanus toxoid, reduced diphtheria toxoid, and acellular pertussis vaccine, adsorbed administered Note: [facility] b i-directional interface ; Source: Other Registry Novel [id number], all formulations administered Note: [facility] bi-direct ional interface ; Source: Other Registry Payers Payer name Insurance type Covered alliance party ID Authoriza tion(s) No Information Social History Type Description Quantity Date Captured Comments Alcohol Use Details Unknown Caffeine Use Details Unknown Tobacco Use Status No Information Smoking Status No Information Sex Male Chief Complaint And Reason For Visit No Information Reason For Referral Reason For Referral No Information Plan Of Treatment Date Type Action Status Goal Lifestyle education zainain g diet completed Referral Ordered: Small Bowel PillCam Appointment date/timeframe: First Available ordered History Of Present Illness Encounter Date Complaint History Of Prese nt Illness GI Symptoms or Concerns 47-year- old male patient with history of Jarrett-en-Y gastric bypass done about 17 years ago, with history of chronic epigastric abdominal pain that had extensive workup in the past, who presents for follow-up after recent hospitalization for melena related to obscure GI bleeding. He underwent upper endoscopy and colonoscopy and no source of bleeding was identified. He reported that he had a CT scan which was negative. He was told that it is recommended to have a capsule endoscopy to identify that. Denies any melena at this time. He continues to have the same pain that he has had for many years now. Uses Tylenol as needed, does not use any NSAIDs. Denies any heavy alcohol use at this time. GI Symptoms or Concerns The eva ent is a 43-year-old male who is seen today in followup at the request of Johnie Farmer MD, regarding chronic abdominal pain. History obtained today from the patient and review of available clinic and other records reveals that the patient has had numerous investigations of this pain without a specific diagnosis ever being found. The patient notes that he has had ER visits over the last 2 years at a frequency of every 2 to 3 months. His most recent contact with [facility] was when he was seen in September at [facility] by Dr. Kiran who performed consultation and upper endoscopy to be summarized below.The patient's pain, which had been present for 2 years, has gotten worse in the last year or so. It is a constant epigastric discomfort described as cramps. It can keep the patient awake during the night or often awakens him from sleep despite the use of Ambien. Does not radiate to the back or elsewhere. The patient notes that beer cons Functional Status Date Functional Assessmen t No Information Instructions Date Instruction Additional Infor rashad Refer for capsule en doscopy. Counseled about the risks.Start low-dose nortriptyline for his chronic epigastric abdominal pain. Counseled about possible constipation. Follow-up after completion of workup May consider gabapentin for his pain if no improvement or if he develops side effects to nortriptyline. Related to Other iron deficiency anemias 1. As already pippa led, the patient will be seeing a surgeon and academic support center director at [facility] later today for further evaluation of the abdominal discomfort.2. At this point, we do not plan any further gastrointestinal evaluation.3. I have recommended, however, that the patient see one of the providers in our liver clinic for further opinion regarding fatty liver. Based on the history obtained today, I do have concerns that the patient may have nonalcoholic steatohepatitis or VU syndrome. His weight was recorded to be 219 pounds, with a BMI of 33 today.The patient thanked me for the lengthy discussion. He indicated that his questions and concerns had been addressed to his satisfaction and that he understands and agrees with the plan. Related to Abdominal pain, chronic, epigastric Lifestyle education regarding di et Related to Dietary counseling and surveillance Abdominal Pain Related to Abdom inal pain, chronic, epigastric Assessments Type Assessment Date No Information Patient Care Teams Name Effective Dates (start - stop) Status Members No Information
--- OUTSIDE RECORDS SUMMARY | 2023-11-14 15:12 | XMS_ITS | Clinical Summary ---
Author Organization [facility] Address [place], [place] [address] Care Team Providers Care Senior Architectural Designer Name Role Phone FlynnEden Madill Primary Care Provider + Yaya Park MD [...] 30 tablet 0 04/30/2014 Active albuterol HFA (PRO-AIR,VENTOLIN,NJ OVENTIL) 90 mcg/actuation inhaler Inhale 2 Puffs [...] Procedure Code(s): ? --- Professional --- ? 11968, Esophagogastroduodenoscopy, flexible, transoral; diagnostic, ? including collection of specimen(s) by brushing or washing, when ? performed (separate procedure) Diagnosis Code(s): ? --- Professional --- ? Z98.84, Bariatric surgery status ? R10.13, Epigastric pain CPT copyright 2016 [employer]. All rights reserved. The codes documented in this report are preliminary and upon draw string knotter review may be revised to meet current compliance requirements. MD Boaz Carrion Jr., MD 10/03/2018 11:34:49 AM Number of Addenda: 0 Note Initiated On: 10/03/2018 11:02 AM ? [address] ? [place] [address] Other Result Information Interface, Nmhcradordrslt In - 10/03/2018 11:34 AM CDT [facility] Patient Name: Alex Goodwin Procedure Date: 10/03/2018 [...] area pain Procedure Code(s): --- Professional --- 74225, Esophagogastroduodenoscopy, flexible, transoral; diagnostic, including collection of specimen(s) by brushing or washing, when performed (separate procedure) Diagnosis Code(s): --- Professional --- Z98.84, Bariatric surgery status R10.13, Epigastric pain CPT copyright 2016 [employer]. All rights reserved. The codes documented in this report are preliminary and upon draw string knotter review may be revised to meet current compliance requirements. MD Boaz Carrion Jr., MD 10/03/2018 11:34:49 AM Problem Noted Date Diagnosed Date S/P Laparoscopic Jarrett-en-Y g astric bypass 07/03/[address] Diaz Prince 12/18/2018 Altered mental status 07/03/2014 Alcohol dependency 04/29/2014 Alcohol intoxication 04/29/2014 Major depression, recurrent 09/26/2013 Overview: H/o overdose attempt (2006), hospitalized at [facility]'s 2009 Marital or partner relational [...] T Respiratory Rate 20 06/06/2018 5:42 AM RESTORATIVE COORDINATOR Oxygen Saturation 98% 06/06/2018 6:00 AM RESTORATIVE COORDINATOR Inhaled Oxygen Concentration - - Weight 101.6 [...] (BBF) ANTI HCV Timed 07/04/2005 2:15 AM RESTORATIVE COORDINATOR from Last 3 Months or Most Recently Relevant to Health Maintenance Results * PATIENT SOURCE ANTI HCV (07/04/2005 2:15 AM RESTORATIVE COORDINATOR) SOURCE ANTI HCV Non-reacti ve [facility] 07/04/2005 2:15 AM RESTORATIVE COORDINATOR 07/03/2005 10:00 PM RESTORATIVE COORDINATOR Narrative [facility] - 07/07/2005 1:49 PM RESTORATIVE COORDINATOR Testing Performed By [place], [place] Diaz Prince MD SEND OUTS [facility] [address] [place] [address] from Last 3 Months or Most Recently Relevant to Health Maintenance Advance Directives * Full Code (Latest Code Status on File) Date Activated Date Inactivated Comments 07/03/2014 4:23 AM 07/03/2014 5:24 PM * Full Code Date Activated Date Inactivated Comments 04/29/2014 11:19 AM 04/30/2014 4:13 PM * Full Code Date Activated Date Inactivated Comments 09/25/2013 9:03 PM 09/28/2013 6:39 PM Care Teams Senior Architectural Designer Relationship Specialty Start Date End Date [facility] [address] [place] [address] PCP - General 08/27/16 Yaya Pakr MD [address] [facility] [address] [place] [address] Consulting Physician Surgery - General 01/14/[address] [place] [address] Registered Dietitian Dowel Inspector 01/06/19 Monique Encinas NP [address] [place] [address] Consulting Physician Nurse Practitioner 01/06/19
--- OUTSIDE RECORDS SUMMARY | 2023-11-14 15:12 | XMS_ITS | Encounter Summary ---
[facility] Address [address], [place] [address] Care Team Providers Care Phys Asst Name Role Phone Johnie Farmer MD Primary Care Provider [phone] Encounter Details Date Type Department Care Team [...] R/O COVID19 04/18/2020 04/18/2020 04/19/2020 5:02 PM REVENUE COORDINATOR COVID19 04/18/2020 04/18/2020 05/09/2020 3:17 AM REVENUE COORDINATOR documented as of this encounter Care Teams Phys Asst Relationship Specialty [place] [address] [place] [address] PCP - General Family Practice 01/30/18 documented as of this encounter
--- OUTSIDE RECORDS SUMMARY | 2023-11-14 15:12 | XMS_ITS | Encounter Summary ---
[facility] Address [address], [place] [address] Care Team Providers Care Cutter Machine Name Role Phone Johnie Farmer MD Primary Care Provider [phone] Encounter Details Date Type Department Care Team (Late st Contact Info) Description 09/28/2013 Outside Hospital External to [facility], Provider DISCHARGE SUMMARY Social History Tobacco Use [...] R/O COVID19 04/18/2020 04/18/2020 04/19/2020 5:02 PM TRIMMING MACHINE SET UP OPERATOR COVID19 04/18/2020 04/18/2020 05/09/2020 3:17 AM TRIMMING MACHINE SET UP OPERATOR documented as of this encounter Care Teams Cutter Machine Relationship Specialty [place] [address] [place] [address] PCP - General Family Practice 01/30/18 documented as of this encounter
--- OUTSIDE RECORDS SUMMARY | 2023-11-14 15:12 | XMS_ITS | Clinical Summary ---
[facility] Address [address] [place] [address] Care Team Providers Care Coagulating Bath Mixer Name Role Phone MarlenyJohnie MD Primary Care Provider [phone] Source Comments You are receiving this document [...] for each transition of care or referral. [employer] Allergies Active Allergy Reactions Criticality Noted Date [...] Tablet 3 12/19/2018 Active Continuous Blood Gluc Solid Waste Analyst (FREESTYLE SHIRLENE 14 DAY READER) DEVIIndications:Unco ntrolled [...] left upper extremity 09/05/2017 05/19/2018 [facility]11/[facility]01/02/2012 Overview: Background: Diagnosis: Episodic Mood Dis, Alcohol Dep, Adjustment Dis. Current situation: Patient in need of provider to evaluate and manage his medications and possible BH therapy. Providers outside of [facility]: none known of. Goals/Recommendations: Outpatient Behavioral Health Precision InspectorManagement Lead Information: Sheri Chandler [facility] Action Plan: Assisted patient in scheduling 11/09/11 intake appointment with JELANI Momin at [facility] - patient didn't attend. Plan is to [...] series) 04/11/2012,05/12/2010,02/09/2010 Influenza IIV4 (Quadrivalent ) 0.5mL (55012) 02/12/2018,04/02/2017,02/09/2016,2013 Influenza, Unspecified Formulation 03/15/2019 PPSV23 (Pneumovax) [...] Comments Blood Pressure 150/89 04/18/2020 8:08 AM OPEN END SPINNING OPERATOR Pulse 110 04/18/2020 8:08 AM OPEN END SPINNING OPERATOR Temperature 36.7 ??C (98 ??F) 04/18/2020 8:08 AM OPEN END SPINNING OPERATOR Respiratory Rate 20 04/18/2020 8:08 AM OPEN END SPINNING OPERATOR Oxygen Saturation 100% 04/18/2020 8:08 AM OPEN END SPINNING OPERATOR Inhaled Oxygen Concentration - - Weight 105.7 kg (233 lb) 07/13/2019 4:53 PM OPEN END SPINNING OPERATOR Height 174 cm (5' 8.5) 07/13/2019 4:53 PM OPEN END SPINNING OPERATOR Body Mass Index 34.91 07/13/2019 4:53 PM OPEN END SPINNING OPERATOR Plan of Treatment Health Maintenance Due [...] CREATININE / GFR Routine 07/27/2019 5:06 PM OPEN END SPINNING OPERATOR Preoperative examination HGB A1C Routine 07/13/2019 5:40 PM OPEN END SPINNING OPERATOR Uncontrolled type 2 diabetes mellitus with hyperglycemia (HRC) ALBUMIN/CREAT RATIO Routine 04/27/2019 6 :26 PM OPEN END SPINNING OPERATOR Uncontrolled type 2 diabetes mellitus with hyperglycemia (HRC) LIPID PANEL & DIRECT LDL (IF NEEDED) Routine 02/12/2018 4:56 PM CDT Uncontrolled type 2 diabetes mellitus without complication, 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RC) from Last 3 Months or Most Recently Relevant to Health Maintenance Results * Creatinine / GFR (07/27/2019 5:06 PM OPEN END SPINNING OPERATOR) Creatinine 1.10 0.73 - 1.18 mg/dL 07/27/2019 8:51 PM OPEN END SPINNING OPERATOR [facility] GFR, Estimated >60 >60 mL/min/1.7 3m2 07/27/2019 8:51 PM OPEN END SPINNING OPERATOR [facility] GFR, Est If >60 >60 mL/min/1.7 3m2 07/27/2019 8:51 PM OPEN END SPINNING OPERATOR [facility] Blood Venipuncture / Unknown 07/27/2019 5:06 PM OPEN END SPINNING OPERATOR 07/27/2019 5:06 PM OPEN END SPINNING OPERATOR Johnie Farmer MD LAB_1 [facility] [address] [place] [address], [facility] [phone] * (ABNORMAL) Hemoglobin A1C Glycosylated (07/13/2019 5:40 PM OPEN END SPINNING OPERATOR) Hemoglobin A1C 7.1(H) <=5.6 % 07/14/2019 10:39 AM OPEN END SPINNING OPERATOR [facility] Blood Venipuncture / Unknown 07/13/2019 5:40 PM OPEN END SPINNING OPERATOR 07/13/2019 5:40 PM OPEN END SPINNING OPERATOR Narrative [facility] - 07/14/2019 10:39 AM OPEN END SPINNING OPERATOR For patients not previously diagnosed with diabetes: 5.7-6.4%: Increased risk for diabetes 6.5% and greater: Diagnostic for diabetes For patients diagnosed with diabetes: <8.0%: Goal of therapy for ages 18-75 Clinicians may recommend a higher or lower goal for specific individuals. Johnie Farmer MD LAB_1 Performing Organization Address City/State/[facility] Co de Phone Number [facility] [address] [place] [address], [facility] * (ABNORMAL) Microalbumin Urine Random (UMAR) (04/27/2019 6:26 PM OPEN END SPINNING OPERATOR) Albumin, Urine, Random 56.7 mg/L 04/27/2019 9:21 PM OPEN END SPINNING OPERATOR [facility] Creatinine, Urine, Random 150 >20 mg/dL 04/27/2019 9:21 PM OPEN END SPINNING OPERATOR [facility] Albumin/Creati nine Ratio, Urine, Random 38(H) <30 mg/g 04/27/2019 9:21 PM OPEN END SPINNING OPERATOR [facility] Urine,random 04/27/2019 6:26 PM OPEN END SPINNING OPERATOR 04/27/2019 6:26 PM OPEN END SPINNING OPERATOR Johnie Farmer MD LAB_1 Performing Organization Address [facility] de Phone Number [facility] [address] [place] [address] [phone] * Lipid Panel - LDLD If Trig [...] - 02/12/2018 8:47 PM CDT Performed at [facility], [address] [place] [address] CLIA number [id number] Dany Hirsch MD LAB_1 Performing Organization Address [facility]/ZIP Co de Phone Number [facility] [address] [place] [address] from Last 3 Months or Most Recently Relevant to Health Maintenance Advance Directives * Full Code (Latest Code Status on File) Date Activated Date Inactivated Comments 02/28/2018 10:40 PM 03/01/2018 7:00 PM * Full Code Date Activated Date Inactivated Comments 10/27/2011 11:11 AM 10/30/2011 3:43 PM * Full Code Date Activated Date Inactivated Comments 01/03/2010 12:56 AM 01/04/2010 1:26 PM Care Teams Coagulating Bath Mixer Relationship Specialty [place] [address] [place] [address] PCP - General Family Practice 01/30/18
--- NOTE | 2023-11-14 15:30 | MR_ITS ---
[address] [address] Phone:?[phone] Fax:?[phone] Referring Physician Information: Julio Henry M.D. [address] [facility] [address] Phone:?[phone] Fax:?[phone] Patient:Sukumar Goodwin D.O.B:?1975 Sex:?Male Phone:?[phone] [facility] MRN:?[id number] Exam Date:?11/14/2023 EXAM: MRI OF THE LEFT SHOULDER CLINICAL INFORMATION: The patient is a 48-year-old with left shoulder pain. Evaluate for rotator cuff injury. PRIOR SURGERY: None reported. COMPARISON STUDIES: Comparison is made to the prior MRI arthrogram of the left shoulder dated 04/09/2019. TECHNICAL INFORMATION: Using a 1.5T MR scanner and a localizing shoulder surface coil: 3.0 mm?coronal obliques: PD, T2, STIR 3.0 mm?sagittal obliques: PD, T2 3.0 mm?axials: PD, T2 FINDINGS: Articular/Extraarticular collections: Effusion: Minimal. Subacromial/subdeltoid: No evidence for bursitis. Subcoracoid: No evidence for bursitis. Osseous structures: Proximal humerus: Postsurgical changes of the proximal humerus are present, in keeping with prior supraspinatus, infraspinatus, and subscapularis repair. There is no evidence for greater or lesser tuberosity fracture. No Hill-Sachs or reverse Hill-Sachs lesion is identified. Glenoid: No acute bony abnormality of the glenoid fossa or glenoid neck can be seen. Acromioclavicular joint: Moderate changes of acromioclavicular joint arthrosis are present. There is an adjacent ganglion cyst extending superiorly, seen to best advantage on sagittal series 8 image 16 and on coronal series 4 image 7. The ganglion cyst measures approximately 4.4 cm in anteroposterior dimension, 3.3 cm in mediolateral dimension, and 2.9 cm in craniocaudal dimension. Coracoacromial arch: Acromion morphology: Type II. No evidence for os acromiale. Acromiohumeral space: Markedly narrowed. Coracohumeral space: Moderately narrowed. Rotator cuff and deltoid: Supraspinatus: The patient is status post supraspinatus repair. There is a recurrent area of full-thickness tearing involving the supraspinatus tendon fibers seen on coronal series 5 image 13 and on sagittal series 7 image 12. The recurrent, full-thickness tearing measures 26 mm in mediolateral dimension and 28 mm in anteroposterior dimension. No atrophic changes of the supraspinatus muscle belly are present. Infraspinatus: The patient is status post infraspinatus repair. There is a recurrent, full-thickness tear of the infraspinatus tendon fibers seen on coronal series 5 image 16 and on sagittal series 7 image 12. The recurrent tearing measures 39 mm in mediolateral dimension and 25 mm in anteroposterior dimension. Atrophic changes of the infraspinatus muscle belly are seen on sagittal series 7 image 26. Teres minor: No evidence for tendinosis, tearing, or associated muscle belly atrophy. Subscapularis: Moderate subscapularis tendinosis and/or postsurgical change can be seen. There is no definite full-thickness tearing or retraction. No atrophic changes of the subscapularis muscle belly are noted. Deltoid: No evidence for strain or tearing. Biceps tendon: There is evidence for prior biceps tenodesis. The biceps tendon appears intact distal to the tenodesis site. Glenohumeral joint and labrum: Articular Cartilage: Chondromalacia and chondral loss can be seen along the articular surfaces of the glenohumeral articulation. No definite osteoarthritic changes are seen. Labrum: Degeneration, blunting, and irregularity of the glenoid labrum is present. No definite areas of more well-defined tearing can be seen. No paralabral ganglion cyst formation is identified. Capsular Soft Tissues: No definite capsular abnormalities of the glenohumeral joint are seen. No evidence for capsular tearing is present and there are no MR signs of adhesive capsulitis. CONCLUSION: 1. The patient is status post rotator cuff repair. There is recurrent areas of broad-based, full-thickness, recurrent tearing of the supraspinatus and infraspinatus tendons as described above. 2. Moderate subscapularis tendinosis and/or postsurgical change without definite evidence for full-thickness tearing or retraction. 3. Moderate acromioclavicular joint arthrosis with an adjacent ganglion cyst extending superiorly. 4. Chondromalacia and chondral loss along the articular surfaces of the glenohumeral articulation. 5. Status post biceps tenodesis. AEC Electronically signed on 11/15/2023 8:04:00 AM by Roosevelt Chawla M.D.
== END 2023-11-14 15:08 | disposition home or self-care (01) ==
LOC: MRI 15:07
PROVIDERS: Visit Provider Orthopaedic Surgery Sports Medicine
DX: M25.512 Pain in left shoulder (principal); M75.102 Unspecified rotator cuff tear or rupture of left shoulder, not specified as traumatic; M19.012 Primary osteoarthritis, left shoulder; M94.212 Chondromalacia, left shoulder; S46.012A Strain of muscle(s) and tendon(s) of the rotator cuff of left shoulder, initial encounter
CPT/HCPCS: 73221

== ENCOUNTER 2024-03-16 07:04 | Day surgery (SDC) | payer OTHER, SELFPAY ==
[2024-03-16] VITALS (18 sets, daily range): BP systolic 131–173; BP diastolic 67–103; PULSE 70–80; RESP 14–17; TEMP 35.6–36.8; O2SAT 92–99; BMI 33.0
--- OUTSIDE RECORDS SUMMARY | 2024-03-16 07:09 | XMS_ITS | Encounter Summary ---
Author Organization [facility] Address [address] [facility] [place] [address] Care Team Providers Care Occupational Psychologist Name Role Phone Олег Kaiser MD Unavailable [phone] Loretta Elizalde PA-C Unavailable [phone] Loretta Elizalde PA-C Primary Care Provider [phone] Dong Craft MD Unavailable [phone] Grazyna Damian CNP Unavailable [phone] Encounter Details Date Type Department Care Team (Late st Contact Info) Description 03/10/2024 Orders Only [facility] [address] [place] [address] Loretta Elizalde PA-C [address] [place] [address] Low serum testosterone (Primary Dx) Social History Tobacco Use Types Packs/Day Years Used Date Smoking Tobacco: Never Passive Smoke Exposure: Never Smokeless Tobacco: Never Alcohol Use Standard Drinks/Week Comments Yes 4 (1 standard drink = 0.6 oz pure alcohol) usually 2 drinks/day, 2 days/week Social Connection and Isolation Panel [NHANES] A nswer Date Recorded Frequency of Communication with Friends and Fami ly Not on file 12/06/2023 How often do you get together with friends or re latives? Never 12/06/2023 Attends Adventism Services Not on file 12/05 Active Member of Clubs or Organizations Not on f ile 12/06/2023 Attends Club or Organization Meetings Not on rolando e 12/06/2023 Marital Status Not on file 12/06/2023 PHQ-2 Answer Date Recorded PHQ-2 Score 2 12/11/2023 [facility] - Occupational Stress Questionnaire Answer Date Recorded Do you feel stress - tense, restless, nervous, or anxious, or unable to sleep at night because your mind is troubled all the time - these days? Very much 12/06/2023 Exercise Vital Sign Answer Date Recorde d On average, how many days pe r week do you engage in moderate to strenuous exercise (like a brisk walk)? 4 days 12/06/2023 On average, how many minutes do you engage in exercise at this level? 70 min 12/06/2023 Adolescent Education Answer Date Record ed Getting School Help Needed Not on file 02/16 Food Insecurity Answer Date Recorded Within the past 12 months, d id you worry that your food would run out before you got money to buy more? No 12/06/2023 Within the past 12 months, d id the food you bought just not last and you didn? t have money to get more? No 12/06/2023 Housing Stability Answer Date Recorded Do you have housing? (Autumn g is defined as stable permanent housing and does not include staying ouside in a car, in a tent, in an abandoned building, in an overnight intermediate, or couch-surfing.) No 12/06/2023 Are you worried about losing your housing? Patie nt declined 12/06/2023 Financial Resource Strain Answer Date R ecorded Within the past 12 months, h ave you or your family members you live with been unable to get utilities (heat, electricity) when it was really needed? No 12/06/2023 Transportation Needs Answer Date Record ed Within the past 12 months, h as lack of transportation kept you from medical appointments, getting your medicines, non-medical meetings or appointments, work, or from getting things that you need? No 12/06/2023 Interpersonal Safety Answer Date Record ed Do you feel physically and e motionally safe where you currently live? Yes 11/22/2023 Within the past 12 months, h ave you been hit, slapped, kicked or otherwise physically hurt by someone? No 11/22/2023 Within the past 12 months, h ave you been humiliated or emotionally abused in other ways by your partner or ex-partner? No 11/22/2023 Sex and Gender Information Value Date Recorded Sex Assigned at Male 01/28/2024 9:34 AM CDT Gender Identity Male 01/28/2024 9:34 AM CDT Sexual Orientation Straight 01/28/2024 9: 34 AM CDT documented as of this encounter Plan of Treatment Upcoming Encounters Date Type Department Care Team (Late st Contact Info) Description 03/19/2024 7:00 AM CDT Lab [facility] [address] [place] [address] 04/28/2024 7:30 AM COSMETICS SUPERVISOR Office Visit [facility] [address] [place] [phone] Loretta Elizalde PA-C [address] [place] [address] 09/09/2024 7:00 AM CDT Lab [facility] [address] [place] [address] 09/15/2024 8:30 AM CDT Virtual Visit [facility] [address] [place] [address] Dong Craft MD [facility] [facility], [address] [address] Scheduled Orders Name Type Priority Associated Diagnoses Orde r Schedule Testosterone, total Lab Routine Low serum testosterone Expected: 03/10/2024 (Approximate), Expires: 03/10/2025 documented as of this encounter Goals Goal [...] arrange or make changes in my appointments. Establish Stable Housing Care Plan SDOH LACK OF STABLE HOUSING 10%( 3:28 PM CDT) Mer Ordonez LSW Note: Barriers: Need to find new housing by 12/26/23. I will not be able to afford rent in December. Strengths: I have employment and transportation. I likely have a place as of 01/26/24 and can get in sooner if I can come up with $1,000 for first months rent. Patient expressed understanding of goal: Yes Action steps to achieve this goal: 1. I will contact [facility] [employer] at [phone] to see if they have housing options for me in the month of December. 2. I will contact additional resources discussed as needed . These were emailed to me on 12/16/23. 3. I will let Care Coordination know if I run in to barriers with this goal. documented as of this encounter Visit Diagnoses Diagnosis Low serum testosterone- Primary documented in this encounter Additional Health Concerns Active Problems Noted Date Diagnosed Date SDOH LACK OF STABLE HOUSING 12/16/2023 Assessment Noted Time PHQ-9 Depression Total Score: 3 12/11/19 24 7:08 AM CDT documented as of this encounter Care Teams Occupational Psychologist Relationship Specialty Start Date End Date Loretta Elizalde PA-C [address] [place], [place] [id number] PCP - General Family Medicine 09/25/22 Олег Kaiser MD [address] [place] [address] Urology 04/05/21 Loretta Elizalde PA-C [address] [place] [address] Assigned PCP 09/22/22 Dong Craft MD [address] [place] [address] Hematology 10/09/22 Grazyna Damian CNP [address] [place] [address] Assigned Cancer Care Provider 05/25/23 documented as of this encounter
--- OUTSIDE RECORDS SUMMARY | 2024-03-16 07:09 | XMS_ITS | Encounter Summary ---
Author Organization [facility] Address [address] [facility] [place] [address] Care Team Providers Care Coroner Transport Technician Name Role Phone Олег Kaiser MD Unavailable [phone] Loretta Elizalde PA-C Unavailable [phone] Loretta Elizalde PA-C Primary Care Provider [phone] Dong Craft MD Unavailable [phone] Grazyna Damian CNP Unavailable [phone] Reason for Visit * Reason Onset Date Comments Prior Authorization 03/06/2024 Continuous G lucose Sensor (FREESTYLE SHIRLENE 3 PLUS SENSOR) MISC - [place] APPROVED Encounter Details Date Type Department Care Team (Late st Contact Info) Description 03/06/2024 Telephone [facility] [address] [place] [address] Loretta Elizalde PA-C [address] [place] [address] Prior Authorization (Continuous Glucose Sensor (FREESTYLE SHIRLENE 3 PLUS SENSOR) MISC - [place] APPROVED) Social History Tobacco Use Types Packs/Day Years [...] friends or re latives? Never 12/06/2023 Attends [employer] Not on file 12/05 Active Member of Clubs or Organizations Not on f ile 12/06/2023 Attends Club or Organization Meetings Not on rolando e 12/06/2023 Marital Status Not on file 12/06/2023 PHQ-2 Answer Date Recorded PHQ-2 Score 2 12/11/2023 [facility] - Occupational Stress Questionnaire Answer Date Recorded [...] Date Recorded Do you have housing? (Autumn combs is defined as stable permanent housing and does not include staying ouside in a car, in a tent, in an abandoned building, in an overnight custodial, or couch-surfing.) No 12/06/2023 Are you worried about losing your housing? Alice nt declined 12/06/2023 Financial Resource Strain Answer [...] encounter Miscellaneous Notes * Telephone Encounter - Hilary Asif - 03/11/2024 10:35 AM CDT Images from the original note were not included. Retail Pharmacy Prior Authorization Team Prior Authorization Approval Medication: FREESTYLE SHIRLENE 3 PLUS SENSOR MISC Authorization Effective Date: 03/10/2024 Authorization Expiration Date: 03/09/2025 Approved Dose/Quantity: Reference #: Insurance Footfall123: [employer] [phone] Expected CoPay: $ CoPay Card Available: No Financial Assistance Needed: Which Pharmacy is filling the prescription: [id number] [place] - [phone] Pharmacy Notified: Yes Patient Notified: Instructed pharmacy to notify patient when script is ready to cook pickled meat/ship. * Telephone Encounter - Hilary Asif - 03/10/2024 4:03 PM CDT Images from the original note were not included. Retail Pharmacy Prior Authorization Team PA Initiation Medication: FREESTYLE SHIRLENE 3 PLUS SENSOR MISC Insurance Company: [employer] - Pharmacy Filling the Rx: [id number] - [place] - [id number] Filling Pharmacy Filling Pharmacy Start Date: 03/10/2024 * Telephone Encounter - Faith Cano - 03/06/2024 1:08 PM CDT Prior Authorization Retail Medication Request Medication/Dose: Continuous Glucose Sensor (FREESTYLE SHIRLENE 3 PLUS SENSOR) MISC Diagnosis and ICD code (if different than what is on RX): New/renewal/insurance change PA/secondary ins. 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 I will contact [facility] at [phone] to see if they have housing options for me in the month of December. 2. I will contact additional resources discussed as needed . These were emailed to me on 12/16/23. 3. I will let Care Coordination know if I run in to barriers with this goal. documented as of this encounter Visit Diagnoses Not on filedocumented in this encounter Additional Health Concerns Active Problems Noted Date Diagnosed Date SDOH LACK OF STABLE HOUSING 12/16/2023 Assessment Noted Time PHQ-9 Depression Total Score: 3 12/11/19 24 7:08 AM CDT documented as of this encounter Care Teams Coroner Transport Technician Relationship Specialty Start Date End Date Loretta Elizalde PA-C [address] [place] [address] PCP - General Family Medicine 09/25/22 Олег Kaiser MD [address] [place] [id number] Urology 04/05/21 Loretta Elizalde, MARYC [address] [place] [address] Assigned PCP 09/22/22 oDng Craft MD [address] [place] [address] [id number] Hematology 10/09/22 Grazyna Damian, NORBERT [address] [place] [address] [phone] Assigned Cancer Care Provider 05/25/23 documented as of this encounter
--- OUTSIDE RECORDS SUMMARY | 2024-03-16 07:09 | XMS_ITS | Clinical Summary ---
Author Organization [facility] Address [address] [facility] [place] [address] Care Team Providers Care Reel Cutter Name Role Phone Олег Kaiser MD Unavailable [phone] Loretta Elizalde PA-C Unavailable [phone] Loretta Elizalde PA-C Primary Care Provider [phone] Dong Craft MD Unavailable [phone] Grazyna Damian CNP Unavailable [phone] Allergies Active Allergy Reactions Criticality Noted Date Comments Nsaids 06/09/2018 Gastric Bypass Medications Medication Sig Dispensed Refills Start Date End Date Status albuterol (PROAIR HFA/PROVENTIL HFA/VENTOLIN HFA) 108 (90 Base) MCG/ACT inhalerIndication s:Moderate persistent asthma without complication Inhale 1-2 puffs into the lungs every 4 hours as needed for shortness of breath or wheezing 18 g 5 11/06/2023 Active olmesartan (BENICAR) 40 MG tabletIndications :Hypertension goal BP (blood pressure) < 140/90 Take 1 tablet (40 mg) by mouth daily 90 tablet 3 12/11/2023 Active metFORMIN (GLUCOPHAGE XR) 500 MG 24 hr tabletIndications :Type 2 diabetes mellitus with diabetic nephropathy, 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) Take 2 tablets (1,000 mg) by mouth 2 times daily (with meals) 360 tablet 1 12/11/2023 Active fluticasone-vilan terol (BREO ELLIPTA) 200-25 MCG/ACT inhalerIndication s:Moderate persistent asthma without complication Inhale 1 puff into the lungs daily 60 each 5 12/11/2023 Active FLUoxetine (PROZAC) 20 MG capsuleIndication s:Mild episode of recurrent major depressive disorder (H) Take 1 capsule (20 mg) by mouth daily 90 capsule 12/11/2023 Active amLODIPine (NORVASC) 5 MG tabletIndications :Hypertension goal BP (blood pressure) < 140/90 Take 1 tablet (5 mg) by mouth daily 90 tablet 3 12/11/2023 Active rosuvastatin (CRESTOR) 20 MG tabletIndications :Hyperlipidemia LDL goal <70 Take 1 tablet (20 mg) by mouth daily 90 tablet 3 12/11/2023 Active colchicine (COLCRYS) 0.6 MG tabletIndications :Gout of right knee, unspecified cause, unspecified chronicity Take 1 tablet (0.6 mg) by mouth daily 90 tablet 12/11/2023 Active Continuous Glucose Sensor (FREESTYLE SHIRLENE 3 SENSOR) MISCIndications:T ype 2 diabetes mellitus with diabetic nephropathy, 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 Use 1 sensor every 14 days. Use to read blood sugars per cpht's instructions. 6 each 5 01/28/2024 Active Semaglutide, 1 MG/DOSE, (OZEMPIC) 4 MG/3ML penIndications:Ty pe 2 diabetes mellitus with diabetic nephropathy, 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) Inject 1 mg subcutaneously every 7 days. Start AFTER taking 0.5 mg once weekly for 4 weeks 3 mL 2 01/28/2024 Active sildenafil (VIAGRA) 50 MG tabletIndications :Erectile dysfunction, unspecified erectile dysfunction type Take 0.5-2 tablets (25-100 mg) by mouth daily as needed (erectile dysfunction). Start with 50 mg; reduce to 25 mg if side effects occur, can increase to maximum of 100 mg if tolerating well but incomplete response. Do not take with any nitrate medications. 30 tablet 3 01/28/2024 Active allopurinol (ZYLOPRIM) 100 MG tabletIndications :Gout of right knee, unspecified cause, unspecified chronicity Take 1 tablet (100 mg) by mouth daily. 90 tablet 1 01/29/2024 Active Continuous Glucose Sensor (FREESTYLE SHIRLENE 3 PLUS SENSOR) MISCIndications:T ype 2 diabetes mellitus with diabetic nephropathy, 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) Change every 15 days. 6 each 1 03/06/2024 Active semaglutide (OZEMPIC) 2 MG/3ML penIndications:Ty pe 2 diabetes mellitus with diabetic nephropathy, 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) Inject 0.25 mg subcutaneously once a week for 4 weeks, THEN increase to 0.5 mg once a week 3 mL 1 12/11/2023 03/06/20 24 Discontinu ed(Dose adjustment ) Active Problems Patient Care Coordination No te Formatting of this note migh t be different from the original. EMERGENCY CARE PLAN ACUTE CARE PLAN FOR THE FOLLOWING CONDITIONS: Chronic abdominal pain BRIEF HISTORY OF CONDITIONS: He has history of patricia-en-y gastric bypass surgery in 2006. Has been seen in emergency departments frequently in [phone] for epigastric abdominal pain. Has chronic pain of 7/10 noted on December 2018 [facility] admission. He has had significant workup for this pain throughout this time. Patient has had multiple gallbladder US and CT abdomen/pelvis during this time that have been unremarkable. He had EGD in September 2018 through [facility] that was normal. He saw general surgery PASTE UP WORKER through [facility] on 01/06/19 that thought some of [...] care provider CONTACT INFORMATION FOR PMD OR CRADLE SLIDE MAKER: Johnie Farmer MD [phone] PAIN CONTRACT CLINIC/PRESCRIBER: N/A RESTRICTED STATUS IF [...] LDL goal <70 11/08/2014 Recurrent major depressive disorder, in partial remission 09/26/2013 09/11/2022 Overview: H/o overdose attempt (2006), hospitalized at [facility]'s 2009 Vitamin D deficiency 05/16/2010 Gout of right knee, unspecif ied cause, unspecified chronicity 06/25/2008 S/P gastric bypass 06/25/2008 09/11/2022 Overview: ~2001, [facility], Dr Zhuo? Resolved Problems Problem Noted Date Diagnosed Date [...] Reviewed chart for advance care plan. Alex Goodwni III has no plan or code status on file. Discussed available resources and provided with information. Confirmed code status reflects current choices pending further ACP discussions. Confirmed/documented designated decision maker(s). See permanent comments section of demographics in clinical tab. 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 H Care Plan Pernicious [...] Encounters Date Type Department Care Team Description 03/10/2024 Orders Only [facility] [address] [place] [address] Loretta Elizalde, PAJennyC Low serum testosterone (Primary Dx) 03/06/2024 10:30 AM CDT Office Visit [facility] [address] [place] [phone] Loretta Elizalde PA-C Preop general physical exam (Primary Dx); Rotator cuff syndrome, left; Type 2 diabetes mellitus with diabetic nephropathy, 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); Hypertension goal BP (blood pressure) < 140/90; Hyperlipidemia LDL goal <70; Moderate persistent asthma without complication; S/P gastric bypass; Iron deficiency anemia, unspecified iron deficiency anemia type; Erectile dysfunction, unspecified erectile dysfunction type; Obesity (BMI 30.0-34.9) 03/06/2024 Telephone [facility] [address] [place] [phone] Loretta Elizalde PA-C Prior Authorization (Continuous Glucose Sensor (FREESTYLE SHIRLENE 3 PLUS SENSOR) [facility] APPROVED) 03/06/2024 Refill [facility] [id number] [place] [phone] Loretta Elizalde PA-C Med Change Request 03/06/2024 Travel 02/05/2024 MyC Medical Advice [facility] Care Coordination Critical access hospital[address] [place] [address] Marlene White, [facility] 01/30/2024 Refill [facility] [address] [place] [phone] Loretta Elizalde PA-C Medication Refill 01/28/2024 10:00 AM CDT Office Visit [facility] [address] [place] [phone] Loretta Elizalde PA-C Type 2 diabetes mellitus with diabetic nephropathy, 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) (Primary Dx); Iron deficiency anemia, unspecified iron deficiency anemia type; Gout of right knee, unspecified cause, unspecified chronicity; Erectile dysfunction, unspecified erectile dysfunction type; Hypertension goal BP (blood pressure) < 140/90 01/28/2024 Travel 01/24/2024 Travel 12/23/2023 8:30 AM CDT Infusion Therapy Visit [facility] [address] [place] [phone] Grazyna Damian CNP History of Patricia-en-Y gastric bypass (Primary Dx); Iron deficiency anemia, unspecified iron deficiency anemia type; S/P gastric bypass; Upper GI bleed 12/23/2023 Travel 12/22/2023 11:45 AM CDT E-Visit [address] [address] Loretta Elizalde PA-C Referral (Entered automatically based on p... 12/22/2023 Travel 12/18/2023 7:30 AM CDT Virtual Visit [facility] [address] [place] [phone] Grazyna Damian CNP Iron deficiency anemia, unspecified iron deficiency anemia type (Primary Dx); History of Patricia-en-Y gastric bypass 12/18/2023 Travel from Last 3 Months Immunizations Name Administration Dates Next Due COVID-19 12+ (Pfizer) 03/06/2024,03/28/2023 COVID-19 MONOVALENT 12+ (Pfizer) 11/04/2020,09/25 Flu, Unspecified 03/15/2019 [id number] Novel Flu P-free 07/08/2009 HepB 04/11/2012,05/12/2010,02/09/2010 Hepatitis B, Adult 04/11/2012,05/12/2010, 010 Influenza (H1N1) 07/08/2009 Influenza (IIV3) PF 03/11/2014, 2,02/23/2011,2009 Influenza Vaccine 18-64 (Flublok) 03/28/2021 Influenza Vaccine >6 months,quad, PF 06/2022,04/10/2022,02/12/2018,2016,02/09/2016,03/11/2014 Influenza Vaccine Trivalent (FluBlok) 03/06/2024 Influenza, seasonal, injectable, PF 02/09/2010 Pneumococcal 20 [...] Passive Smoke Exposure: Never Smokeless Tobacco: Never Tobacco Cessation:Counseling Given: Not Answered Alcohol Use Standard Drinks/Week Comments Yes 4 (1 standard drink = 0.6 oz pure alcohol) usually 2 drinks/day, 2 days/week Social Connection and Isolation Panel [NHANES] A nswer Date Recorded Frequency of Communication with Friends and Fami ly Not on file 12/06/2023 How often do you get together with friends or re latives? Never 12/06/2023 Attends Jain Services Not on file 12/05 Active Member of Clubs or Organizations Not on f ile 12/06/2023 Attends Club or Organization Meetings Not on rolando e 12/06/2023 Marital Status Not on file 12/06/2023 PHQ-2 Answer Date Recorded PHQ-2 Score 2 12/11/2023 [facility] [place] of Occupat ional Health - Occupational Stress [...] in an abandoned building, in an overnight group home, or couch-surfing.) No 12/06/2023 Are you worried about losing your housing? Alvinae nt declined 12/06/2023 Financial Resource Strain Answer [...] Orientation Straight 01/28/2024 9: 34 AM CDT Last Filed Vital Signs Vital Sign Reading Time Taken Comments Blood Pressure 138/88 03/06/2024 10:55 AM CDT Pulse 87 03/06/2024 10:27 AM CDT Temperature 36.4 ??C (97.6 ??F) 03/06/2024 10:27 AM C DT Respiratory Rate 16 03/06/2024 10:27 AM CDT Oxygen Saturation 99% 03/06/2024 10:27 AM CDT Inhaled Oxygen Concentration - - Weight 98.4 kg (217 lb) 03/06/2024 10:27 AM CDT Height 174 cm (5' 8.5) 03/06/2024 10:27 AM CDT Body Mass Index 32.51 03/06/2024 10:27 AM CDT Plan of Treatment Upcoming Encounters Date Type Department Care Team (Late st Contact Info) Description 03/19/2024 7:00 AM CDT Lab [place] [address] [place] [phone] 04/28/2024 7:30 AM HOOP PUNCHER Office Visit [facility] [address] [place] [phone] Loretta Elizalde PA-C [address] [place] [address] 09/09/2024 7:00 AM CDT Lab [place] [address] [place] [phone] 09/15/2024 8:30 AM CDT Virtual Visit [facility] [address] [place] [address] Dong Craft MD [facility] [address], [address] [address] Health Maintenance Due Date Last Done Comments CT COLONOGRAPHY 1974 FLEX SIG 1974 sDNA (Cologuard) 1974 FIT 06/23/2020 06/23/2019 ASTHMA ACTION PLAN 09/12/2023 09/11/2022, 0 09/11/2022, 09/11/2022, Additional history exists ZOSTER IMMUNIZATION (1 of 2) 02/07/2024 ASTHMA CONTROL TEST 06/12/2024 12/11/2023, 11/22/2023, 09/11/2022 PHQ-9 06/12/2024 12/11/2023, 10/25, 09/11/2022, Additional history exists A1C 07/27/2024 01/28/2024, 11/24, 09/11/2022, Additional history exists EYE EXAM 11/19/2024 11/20/2023 LIPID 12/03/2024 12/04/2023, 08/25, 09/22/2013 ANNUAL REVIEW OF HM ORDERS 12/10/2024 12/11/2023, DIABETIC FOOT EXAM 12/10/2024 12/11/2023, 0 12/11/2023, 09/11/2022, Additional history exists MICROALBUMIN 12/10/2024 12/11/2023, 05/0 06/2022, 11/08/2014, Additional history exists YEARLY PREVENTIVE VISIT 12/10/2024 12/11/2023, 09/11 BMP 03/06/2025 03/06/2024, 11/24, 10/04/2022, Additional history exists ADVANCE CARE PLANNING 12/10/2028 12/11/2023 , 09/11/2022, 09/11/2022, Additional history exists DTAP/TDAP/TD IMMUNIZATION (3 - Td or Tdap) 07/16/2031 07/16/2021, 07/18/2009 COLONOSCOPY 10/03/2032 10/03/2022, 09/24, 10/03/2022, Additional history exists COLORECTAL CANCER SCREENING 10/03/2032 RSV VACCINE (1 - 1-dose 75+ series) 2049 HEPATITIS B IMMUNIZATION Completed 012, 04/11/2012, 05/12/2010, Additional history exists DEPRESSION ACTION PLAN Completed 10/13/2015, 2014 HEPATITIS C SCREENING Completed 09/11/2022 HIV SCREENING Completed 09/11/2022 Pneumococcal Vaccine: Pediatrics (0 to 5 Years) and At-Risk Patients (6 to 64 Years) Completed 03/28/2023, 09/11/2022, 07/18/2009 COVID-19 Vaccine Completed 03/06/2024, 06/2022, 04/10/2022, Additional history exists INFLUENZA VACCINE Completed 03/06/2024, , 04/10/2022, Additional history exists HPV IMMUNIZATION Aged Out No longer e [...] 10%( 4 3:28 PM CDT) No Mer Holguin, ENZO Note: Barriers: Need to find new housing [...] achieve this goal: 1. I will contact [facility] at [phone] to see if they have housing options for me in the month of December. 2. I will contact additional resources discussed as needed . These were emailed to me on 12/16/23. 3. I will let Care Coordination know if I run in to barriers with this goal. Medical Devices Implanted Type Area Commercial Real Estate Underwriter Device Identifier Shelf Expiration Date Model / Serial / Lot Stent Ureteral Polaris Ultra [id number] - [id number] Implanted:Qty: 1 on 04/08/2021 by Олег Kaiser MD at [facility] Stent Right: Abdomen [employer] 01/06/2024 [id number] / / [id number] Procedures Procedure Name Priority Date/Time Associated Diagnosis Comments HEMOGLOBIN Routine 03/06/2024 11:13 AM CDT Preop general physical exam BASIC METABOLIC PANEL Routine 03/06/2024 11:13 AM CDT Preop general physical exam TESTOSTERONE TOTAL Routine 03/06/2024 11 :13 AM CDT Erectile dysfunction, unspecified erectile dysfunction type CBC WITH PLATELETS & DIFFERENTIAL Routine 01/28/2024 9:20 AM CDT Iron deficiency anemia, unspecified iron deficiency anemia type TSH WITH FREE T4 REFLEX Add-On 01/28/2024 9:20 AM CDT Erectile dysfunction, unspecified erectile dysfunction type URIC ACID Add-On 01/28/2024 9:20 AM CDT Gout of right knee, unspecified cause, unspecified chronicity CBC WITH PLATELETS AND DIFFERENTIAL Routine 01/28/2024 9:20 AM CDT Iron deficiency anemia, unspecified iron deficiency anemia type HEMOGLOBIN A1C Routine 01/28/2024 9:20 AM CDT Type 2 diabetes mellitus with diabetic nephropathy, 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) FERRITIN Routine 01/28/2024 9:20 AM CDT Iron deficiency anemia, unspecified iron deficiency anemia type ALBUMIN RANDOM URINE QUANTITATIVE Routine 12/11/2023 6:45 AM CDT Type 2 diabetes mellitus with diabetic nephropathy, 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) LIPID REFLEX TO DIRECT LDL PANEL Routine 12/04/2023 7:14 AM CDT Hyperlipidemia LDL goal <70 EYE EXAM - HIM SCAN Routine 11/20/2023 1 2:00 AM CDT COLONOSCOPY Routine 10/03/2022 12:08 PM CDT HIV ANTIGEN ANTIBODY COMBO Routine 09/11/2022 8:48 AM CDT Screening for HIV (human immunodeficiency virus) HEPATITIS C SCREEN REFLEX TO HCV RNA QUANT AND GENOTYPE Routine 09/11/2022 8:48 AM CDT Need for hepatitis C screening test OCCULT BLOOD STOOL STAT 06/23/2019 9: 59 AM HOOP PUNCHER ASTHMA ACTION PLAN Routine 10/13/2015 9: 27 AM CDT C FOOT EXAM Routine 09/22/2013 1:08 PM CDT Diabetes mellitus, type 2 (H) from Last 3 Months or Most Recently Relevant to Health Maintenance Results * (ABNORMAL) Testosterone, total (03/06/2024 11:13 AM CDT) Testosterone Total 181(L) 240 - 950 ng/dL 03/10/2024 7:44 AM CDT [facility] Blood BLOOD SPECIMEN / Unknown Venipuncture / Unknown 03/06/2024 11:13 AM CDT 03/06/2024 11:13 AM CDT Loretta Elizalde PA-C LAB - BLOOD ORDERAB LES [facility] [address] [facility] [address] [facility], [address] [phone] [place] * Hemoglobin (03/06/2024 11:13 AM CDT) Hemoglobin 14.5 13.3 - 17.7 g/dL 03/06/2024 11:15 AM CDT LABORATORY Blood BLOOD SPECIMEN / Unknown Venipuncture / Unknown 03/06/2024 11:13 AM CDT 03/06/2024 11:13 AM CDT Loretta Elizalde PA-C LAB - BLOOD ORDERAB LES LABORATORY [facility] [place] [facility] [address] [facility] Lab (no room number, 1st floor of clinic) [place] [address], [facility] * (ABNORMAL) Basic metabolic panel (Ca, Cl, CO2, Creat, Gluc, K, Na, BUN) (03/06/2024 11:13 AM CDT) Sodium 144 135 - 145 mmol/L 03/06/2024 10:24 PM CDT [facility] Potassium 5.3 3.4 - 5.3 mmol/L 03/06/2024 10:24 PM CDT [facility] Chloride 108(H) 98 - 107 mmol/L 03/06/2024 10:24 PM CDT [facility] Carbon Dioxide (CO2) 23 22 - 29 mmol/L 03/06/2024 10:24 PM CDT [facility] Anion Gap 13 7 - 15 mmol/L 03/06/2024 10:24 PM CDT [facility] Urea Nitrogen 11.2 6.0 - 20.0 mg/dL 03/06/2024 10:24 PM CDT [facility] Creatinine 1.10 0.67 - 1.17 mg/dL 03/06/2024 10:24 PM CDT [facility] GFR Estimate 82 >60 mL/min/1.7 3m2 03/06/2024 10:24 PM CDT [facility] Comment:eGFR calculated usin g 2020 CKD-EPI equation. Calcium 10.4 8.8 - 10.4 mg/dL 03/06/2024 10:24 PM CDT [facility] Comment:Reference intervals for this test were updated on 12/10/2023 to reflect our healthy population more accurately. There may be differences in the flagging of prior results with similar values performed with this method. Those prior results can be interpreted in the context of the updated reference intervals. Glucose 102(H) 70 - 99 mg/dL 03/06/2024 10:24 PM CDT [facility] Blood BLOOD SPECIMEN / Unknown Venipuncture / Unknown 03/06/2024 11:13 AM CDT 03/06/2024 11:13 AM CDT Loretta Elizalde PA-C LAB - BLOOD ORDERAB LES [facility] [address] [facility], [address] [place] [address] * (ABNORMAL) CBC with platelets and differential (01/28/2024 9:20 AM CDT) WBC Count 4.5 4.0 - 11.0 10e3/uL 01/28/2024 9:26 AM CDT RM LABORATORY RBC Count 4.54 4.40 - 5.90 10e6/uL 01/28/2024 9:26 AM CDT RM LABORATORY Hemoglobin 12.5(L) 13.3 - 17.7 g/dL 01/28/2024 9:26 AM CDT RM LABORATORY Hematocrit 37.6(L) 40.0 - 53.0 % 01/28/2024 9:26 AM CDT RM LABORATORY MCV 83 78 - 100 fL 01/28/2024 9:26 AM CDT RM LABORATORY MCH 27.5 26.5 - 33.0 pg 01/28/2024 9:26 AM CDT RM LABORATORY MCHC 33.2 31.5 - 36.5 g/dL 01/28/2024 9:26 AM CDT RM LABORATORY RDW 15.6(H) 10.0 - 15.0 % 01/28/2024 9:26 AM CDT RM LABORATORY Platelet Count 181 150 - 450 10e3/uL 01/28/2024 9:26 AM CDT RM LABORATORY % Neutrophils 55 % 01/28/2024 9:26 AM CDT RM LABORATORY % Lymphocytes 33 % 01/28/2024 9:26 AM CDT RM LABORATORY % Monocytes 7 % 01/28/2024 9:26 AM CDT RM LABORATORY % Eosinophils 4 % 01/28/2024 9:26 AM CDT RM LABORATORY % Basophils 0 % 01/28/2024 9:26 AM CDT RM LABORATORY % Immature Granulocytes 0 % 01/28/2024 9:26 AM CDT RM LABORATORY Absolute Neutrophils 2.5 1.6 - 8.3 10e3/uL 01/28/2024 9:26 AM CDT RM LABORATORY Absolute Lymphocytes 1.5 0.8 - 5.3 10e3/uL 01/28/2024 9:26 AM CDT RM LABORATORY Absolute Monocytes 0.3 0.0 - 1.3 10e3/uL 01/28/2024 9:26 AM CDT RM LABORATORY Absolute Eosinophils 0.2 0.0 - 0.7 10e3/uL 01/28/2024 9:26 AM CDT RM LABORATORY Absolute Basophils 0.0 0.0 - 0.2 10e3/uL 01/28/2024 9:26 AM CDT RM LABORATORY Absolute Immature Granulocytes 0.0 <=0.4 10e3/uL 01/28/2024 9:26 AM CDT RM LABORATORY Blood BLOOD SPECIMEN / Unknown Venipuncture / Unknown 01/28/2024 9:20 AM CDT 01/28/2024 9:20 AM CDT Grazyna Damian CNP LAB - BLOOD ORDERABL ES RM LABORATORY [facility] [address] [facility] (no room number, 1st floor of clinic) [place] [address], [facility] * Uric acid (01/28/2024 9:20 AM CDT) Uric Acid 5.7 3.4 - 7.0 mg/dL 01/28/2024 4:19 PM CDT [facility] LAB[facility]ATORY Blood BLOOD SPECIMEN / Unknown Venipuncture / Unknown 01/28/2024 9:20 AM CDT 01/28/2024 9:20 AM CDT Loretta Elizalde PA-C LAB - BLOOD ORDERAB LES [facility] [address] [facility], [address] [place] [address], [facility] * TSH with free T4 reflex (01/28/2024 9:20 AM CDT) TSH 0.80 0.30 - 4.20 uIU/mL 01/28/2024 4:19 PM CDT [facility] LAB[facility]ORY Blood BLOOD SPECIMEN / Unknown Venipuncture / Unknown 01/28/2024 9:20 AM CDT 01/28/2024 9:20 AM CDT Loretta Elizalde PA-C LAB - BLOOD ORDERAB LES U LABORATORY [facility] [place] [facility] [address] [facility] [address] [facility], [address] [place] [address], [facility] * (ABNORMAL) Hemoglobin A1c (01/28/2024 9:20 AM CDT) Hemoglobin A1C 7.5(H) 0.0 - 5.6 % 01/28/2024 9:34 AM CDT LABORATORY Comment: Normal <5.7% Prediabetes 5.7-6.4% ?? Diabetes 6.5% or higher Note: Adopted from ADA consensus guidelines. Blood BLOOD SPECIMEN / Unknown Venipuncture / Unknown 01/28/2024 9:20 AM CDT 01/28/2024 9:20 AM CDT Loretta Elizalde PA-C LAB - BLOOD ORDERAB LES LABORATORY [facility] [address] [facility] (no room number, 1st floor of clinic) [place] [address], [facility] * Ferritin (01/28/2024 9:20 AM CDT) Ferritin 275 31 - 409 ng/mL 01/28/2024 4:19 PM CDT LABORATORY Blood BLOOD SPECIMEN / Unknown Venipuncture / Unknown 01/28/2024 9:20 AM CDT 01/28/2024 9:20 AM CDT Grazyna Damian CNP LAB - BLOOD ORDERABL ES U LABORATORY [facility] [place] [facility] [address] [facility] [address] [facility], [address] [place] [address], [place] * Albumin Random Urine Quantitative with Creat Ratio (12/11/2023 6:45 AM CDT) Creatinine Urine mg/dL 75.4 mg/dL 12/11/2023 8:07 PM CDT [facility] Comment:The reference ranges have not been established in urine creatinine. The results should be integrated into the clinical context for interpretation. Albumin Urine mg/L <12.0 mg/L 2023 8:07 PM CDT [facility] Comment:The reference ranges have not been established in urine albumin. The results should be integrated into the clinical context for interpretation. Albumin Urine mg/g Cr 12/11/2023 8:07 PM CDT [facility] Comment: Unable to calculate, urine albumin and/or urine creatinine is outside detectable limits. Microalbuminuria is defined as an albumin:creatinine ratio [...] control, and institution of therapy with an axdlvwakjlx-gqmyetduby-fuikpm (ABNER) inhibitor (if the patient can tolerate it). ?? Urine URINE SPECIMEN / Unknown Non-blood Collection / Unknown 12/11/2023 6:45 AM CDT 12/11/2023 7:33 AM CDT Loretta Elizalde PA-C LAB - URINE ORDERAB LES [facility] [address] [facility], [address] [place] [address], [facility] * (ABNORMAL) Lipid panel reflex to direct LDL Fasting (12/04/2023 7:14 AM CDT) Cholesterol 124 <200 mg/dL 12/04/2023 3:13 PM CDT [facility] Triglycerides 163(H) <150 mg/dL 12/04/2023 3:13 PM CDT [facility] Direct Measure HDL 42 >=40 mg/dL 12/04/2023 3:13 PM CDT [facility] LDL Cholesterol Calculated 49 <=100 mg/dL 12/04/2023 3:13 PM CDT [facility] Non HDL Cholesterol 82 <130 mg/dL 12/04/2023 3:13 PM CDT [facility] LAB[facility]ORY Patient Fasting > 8hrs? Yes 12/04/2023 3:13 PM CDT [facility] LABORATORY Blood STRUCTURE OF LEFT UPPER LIMB / Unknown Venipuncture / Unknown 12/04/2023 7:14 AM CDT 12/04/2023 7:14 AM CDT Narrative [facility] - 12/04/2023 3:13 PM CDT Cholesterol Desirable: ??<200 mg/dL Triglycerides [...] LAB - BLOOD ORDERAB LES [facility] [facility] [address] [facility] [address] Building, Room 3[address] [place] [address], [facility] LABORATORY [facility] Acute Care Lab [address] Lab (1st floor, no room number) [place] [address], [facility] * Eye Exam - HIM Scan (11/20/2023 12:00 AM CDT) RETINOPATHY NEGATIVE 11/20/2023 Narrative Wandy Carlisle - 11/20/2023 12:00 AM CDT EYE EXAM [facility] Patient Reported OTHER * COLONOSCOPY (10/03/2022 12:08 PM CDT) [facility] Patient Name: Alex ??Elaineer ?Procedure Date: 10/03/2022 12:08 PM ? Date [...] continuously. The ?Olympus Adult Colonoscope, Model # CF-FP129W, ?Endora # 226, SN # [id number] was introduced through ?the anus and advanced [...] Note Initiated On: 10/03/2022 12:08 PM MRN: ?[id number] Procedure Date: ? 10/03/2022 12:08:54 PM Scope Withdrawal Time: 0 hours 6 minutes 14 seconds Total Procedure Duration: 0 hours 21 minutes 40 seconds Estimated Blood Loss: ? Scope In: 1:16:52 PM Scope Out: 1:38:32 PM RADIOLOGY RESULTS 10/03/2022 12:0 8 PM CDT Jd Rhoades MD PROCEDURES RADIOLOGY RESULTS * HIV Antigen Antibody Combo (09/11/2022 8:48 AM CDT) HIV Antigen Antibody Combo Nonreactive Nonreactive 09/11/2022 5:57 PM CDT [facility]PROT/EN DO Comment:HIV-1 p24 Ag & HIV-1 /HIV-2 Ab Not Detected Blood BLOOD SPECIMEN / Unknown Venipuncture / Unknown 09/11/2022 8:48 AM CDT 09/11/2022 8:48 AM CDT Loretta Elizalde PA-C LAB - BLOOD ORDERAB LES [facility]/PROT/ENDO [facility] Special[facility] Core/Prot/Endo [address] [facility], Room [address] [phone] * Hepatitis C Screen Reflex to HCV [...] UM SPECIALTY CORE/PROT/ENDO UM Specialty Core/Prot/Endo [address] [facility] [address] Building, Room [address] [place] [address] * Stool: occult blood (06/23/2019 9:59 AM HOOP PUNCHER) Occult Blood Negative NEG^Negati ve 06/23/2019 10:11 AM HOOP PUNCHER [facility] Comment: Called to RUTH PRITCHETT IN ERA @ 1010 ON 06/23/19, NB Stool specimen (specimen) 06/23/2019 9:59 AM HOOP PUNCHER 06/23/2019 10:05 AM HOOP PUNCHER Destinee Graham DO LAB - STOOLS ORDER RIMMA MISLINDA [facility] [address] [place] [address], [facility] [phone] from Last 3 Months or Most Recently Relevant to Health Maintenance Additional Health Concerns Active Problems Noted Date Diagnosed Date SDOH LACK OF STABLE HOUSING 12/16/2023 Advance Directives For more information, please contact: [phone] * Full Code (Latest Code Status on [...] with patie nt/legal decision maker Care Teams Reel Cutter Relationship Specialty Start Date End Date Loretta Elizalde PA-C [address] [place] [address] PCP - General Family Medicine 09/25/22 Олег Kaiser MD [address] [place] [address] Urology 04/05/21 Loretta Elizalde PA-C [address] [place] [address] Assigned PCP 09/22/22 Dong Craft MD [address] [place] [address] [id number] Hematology 10/09/22 Grazyna Damian, TITLE CURATIVE SPECIALIST [address] [place] [address] [id number] Assigned Cancer Care Provider 05/25/23
--- OUTSIDE RECORDS SUMMARY | 2024-03-16 07:09 | XMS_ITS | Referral Summary ---
Author Organization [place] Address [address] [facility] [place] [address] Care Team Providers Care Clinic Nurse Name Role Phone Олег Kaiser MD Unavailable [phone] Loretta Elizalde PA-C Unavailable [phone] Loretta Elizalde PA-C Primary Care Provider [phone] Dong Craft MD Unavailable [phone] Grazyna Damian CNP Unavailable [phone] Encounters Date Type Department Care Team Description 03/10/2024 Orders Only [facility] [address] [place] [address] Loretta Elizalde PA-C Low serum testosterone (Primary Dx) 03/06/2024 Telephone [facility] [address] [place] [address] Loretta Elizalde PA-C Prior Authorization (Continuous Glucose Sensor (FREESTYLE SHIRLENE 3 PLUS SENSOR) ALAINA - PA APPROVED) 03/06/2024 Refill [facility] [address] [place] [address] Loretta Elizalde PA-C Med Change Request 03/06/2024 Travel 03/06/2024 10:30 AM CDT Office Visit [facility] [address] [place] [address] Loretta Elizalde PA-C Preop general physical exam (Primary Dx); Rotator cuff syndrome, left; Type 2 diabetes mellitus with diabetic nephropathy, 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); Hypertension goal BP (blood pressure) < 140/90; Hyperlipidemia LDL goal <70; Moderate persistent asthma without complication; S/P gastric bypass; Iron deficiency anemia, unspecified iron deficiency anemia type; Erectile dysfunction, unspecified erectile dysfunction type; Obesity (BMI 30.0-34.9) 02/05/2024 MyC Medical Advice [facility] Care Coordination [address] [place] [address] Marlene White [place] 01/30/2024 Refill [facility] [address] [place] [address] Loretta Elizalde PA-C Medication Refill 01/28/2024 Travel 01/28/2024 10:00 AM CDT Office Visit [facility] [address] [place] [address] Loretta Elizalde PA-C Type 2 diabetes mellitus with diabetic nephropathy, 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) (Primary Dx); Iron deficiency anemia, unspecified iron deficiency anemia type; Gout of right knee, unspecified cause, unspecified chronicity; Erectile dysfunction, unspecified erectile dysfunction type; Hypertension goal BP (blood pressure) < 140/90 01/24/2024 Travel 12/23/2023 Travel 12/23/2023 8:30 AM CDT Infusion Therapy Visit [facility] [address] [place] [phone] Grazyna Damian CNP History of Patricia-en-Y gastric bypass (Primary Dx); Iron deficiency anemia, unspecified iron deficiency anemia type; S/P gastric bypass; Upper GI bleed 12/22/2023 11:45 AM CDT E-Visit [facility] [address] [place] [phone] Loretta Elizalde PA-C Referral (Entered automatically based on p... 12/22/2023 Travel 12/18/2023 Travel 12/18/2023 7:30 AM CDT Virtual Visit [facility] [place] [address] [place] [address] Grazyna Damian CNP Iron deficiency anemia, unspecified iron deficiency anemia type (Primary Dx); History of Patricia-en-Y gastric bypass from Last 3 Months Allergies Active Allergy [...] days. Use to read blood sugars per assistant boiler operator's instructions. 6 each 5 01/28/2024 Active Semaglutide, [...] been seen in emergency departments frequently in [phone] for epigastric abdominal pain. Has chronic pain of 7/10 noted on December 2018 [facility] admission. He has had significant workup for this pain throughout this time. Patient has had multiple gallbladder US and CT abdomen/pelvis during this time that have been unremarkable. He had EGD in September 2018 through [facility] that was normal. He saw general surgery FRUIT BUYER through [facility] on 01/06/19 that thought some of [...] care provider CONTACT INFORMATION FOR PMD OR NEWS BROADCASTER: Johnie Farmer MD [phone] PAIN CONTRACT CLINIC/PRESCRIBER: N/A RESTRICTED STATUS IF [...] Overview: H/o overdose attempt (2006), hospitalized at [facility]'s 2009 Vitamin D deficiency 05/16/2010 Gout of right knee, unspecif ied cause, unspecified chronicity 06/25/2008 S/P gastric bypass 06/25/2008 09/11/2022 Overview: ~2001, [facility], Dr Zhou? 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 Never 12/06/2023 Attends Bahai Services Not on file 12/05 Active Member of Clubs or Organizations Not on f ile 12/06/2023 Attends Club or Organization Meetings Not on rolando e 12/06/2023 Marital Status Not on file 12/06/2023 PHQ-2 Answer Date Recorded PHQ-2 Score 2 12/11/2023 [facility] [place] of Occupat ional Health - Occupational [...] in an abandoned building, in an overnight [place] [facility], or couch-surfing.) No 12/06/2023 Are you worried [...] Info) Description 03/19/2024 7:00 AM CDT Lab [facility] [address] [place] [address] 04/28/2024 7:30 AM SOIL CONSERVATION TEACHER Office Visit [facility] [address] [place] [address] Loretta Elizalde PA-C [address] [place] [address] 09/09/2024 7:00 AM CDT Lab [facility] [address] [place] [address] 09/15/2024 8:30 AM CDT Virtual Visit [facility] [address] [place] [phone] Dong Craft MD [address] [place] [address] Goals Goal Patient Goal Type Associated Problems [...] OF STABLE HOUSING 10%( 3:28 PM CDT) No Mer Holguin LSW [...] achieve this goal: 1. I will contact [facility] at [phone] to see if they have housing options for me in the month of December. 2. I will contact additional resources discussed as needed . These were emailed to me on 12/16/23. 3. I will let Care Coordination know if I run in to barriers with this goal. Medical Devices Implanted Type Area Heel Seat Fitter Machine Device Identifier Shelf Expiration Date Model / Serial / Lot Stent Ureteral Polaris Ultra [id number] - [id number] Implanted:Qty: 1 on 04/08/2021 by Олег Kaiser MD at [facility] Stent Right: Abdomen [employer] 01/06/2024 [id number] / / [id number] Procedures Procedure Name Priority Date/Time Associated Diagnosis [...] BLOOD STOOL STAT 06/23/2019 9: 59 AM SOIL CONSERVATION TEACHER ASTHMA ACTION PLAN Routine 10/13/2015 9: 27 [...] UM SPECIAL DRUG/BGEN UM Special Drug/BGEN [address] [facility] [address] Building, Room 3[address] [place] [address], [facility] * Hemoglobin (03/06/2024 11:13 AM CDT) Hemoglobin 14.5 13.3 - 17.7 g/dL 03/06/2024 11:15 AM CDT LABORATORY Blood BLOOD SPECIMEN / Unknown Venipuncture / Unknown 03/06/2024 11:13 AM CDT 03/06/2024 11:13 AM CDT Loretta Elizalde PA-C LAB - BLOOD ORDERAB LES LABORATORY [facility] [address] [facility] Lab (no room number, 1st floor of clinic) [place] [address], [facility] * (ABNORMAL) Basic metabolic panel [...] 10:24 PM CDT [facility] Comment:eGFR calculated us2020 CKD-EPI equation. Calcium 10.4 8.8 - 10.4 [...] 11:13 AM CDT 03/06/2024 11:13 AM CDT Lorteta Elizalde PA-C LAB - BLOOD ORDERAB LES [facility] LABORATORY [facility] [place] [facility] [address] [facility], [address] [address] * (ABNORMAL) CBC with platelets and differential [...] CDT 01/28/2024 9:20 AM CDT Grazyna Damian [employer] LAB - BLOOD ORDERABL ES RM LABORATORY [facility] [address] [facility] Lab (no room number, 1st floor of clinic) [place], [place] [address], [place] * Uric acid (01/28/2024 9:20 AM CDT) [facility] Uric Acid 5.7 3.4 - 7.0 mg/dL 01/28/2024 4:19 PM CDT [facility] Blood BLOOD SPECIMEN / Unknown Venipuncture / Unknown 01/28/2024 9:20 AM CDT 01/28/2024 9:20 AM CDT Loretta Elizalde PA-C LAB - BLOOD ORDERAB LES LABORATORY [facility] [place] [facility] [address] [facility], [address] [address] * TSH with free T4 reflex (01/28/2024 9:20 AM CDT) TSH 0.80 0.30 - 4.20 uIU/mL 01/28/2024 4:19 PM CDT U LABORATORY Blood BLOOD SPECIMEN / Unknown Venipuncture / Unknown 01/28/2024 9:20 AM CDT 01/28/2024 9:20 AM CDT Loretta Elizalde PA-C LAB - BLOOD ORDERAB LES Performing Organization Address City/[facility]/ZIP Co de Phone Number LABORATORY [facility] [place] [facility] [address] [facility], [address] [address] * (ABNORMAL) Hemoglobin A1c [...] PA-C LAB - BLOOD ORDERAB LES LABORATORY [facility] [address] [facility] Lab (no room number, 1st floor of clinic) [place] [address], [place] * Ferritin (01/28/2024 9:20 AM CDT) Ferritin 275 31 - 409 ng/mL 01/28/2024 4:19 PM CDT [facility] Blood BLOOD SPECIMEN / Unknown Venipuncture / Unknown 01/28/2024 9:20 AM CDT 01/28/2024 9:20 AM CDT Grazyna Damian INDIRECT SALES EXEC LAB - BLOOD ORDERABL ES [facility] LABORATORY [facility] Core Lab [address] [facility], Room [address] [place] [address] * Albumin Random Urine Quantitative with Creat [...] control, and institution of therapy with an iraqaxitbvv-pjoonpbshz-hnzspn (ABNER) inhibitor (if the patient can tolerate it). ?? Urine URINE SPECIMEN / Unknown Non-blood Collection / Unknown 12/11/2023 6:45 AM CDT 12/11/2023 7:33 AM CDT Loretta Elizalde PA-C LAB - URINE ORDERAB LES [facility] [place] [facility] [address] [facility] [address] [facility], Room [address] [place] [address], [facility] * (ABNORMAL) Lipid panel reflex [...] LAB - BLOOD ORDERAB LES [facility] LABORATORY [facility] [place] [facility] [address] [facility]. [address] Building, Room [address] [place] [address], [facility] LABORATORY [facility] Acute Care Lab [address] Lab (1st floor, no room number) [place] [address] * Eye Exam - HIM Scan (11/20/2023 12:00 AM CDT) RETINOPATHY NEGATIVE 11/20/2023 Narrative Wandy Carlisle - 11/20/2023 12:00 AM CDT EYE EXAM [facility] Patient Reported OTHER * COLONOSCOPY (10/03/2022 12:08 PM CDT) COLONOSCOPY [facility] Patient Name: Alex ??Salter ?Procedure [...] continuously. The ?Olympus Adult Colonoscope, Model # CF-PQ281H, ?Endora # 226, SN # [id number] was introduced through ?the anus and advanced [...] Note Initiated On: 10/03/2022 12:08 PM MRN: ?[id number] Procedure Date: ? 10/03/2022 12:08:54 PM Scope [...] UM SPECIALTY CORE/PROT/ENDO UM Specialty Core/Prot/Endo [address] [facility] [address] [facility], Room [address] [place] [address], [facility] [phone] * Hepatitis C Screen Reflex to HCV [...] LES UM SPECIALTY CORE/PROT/ENDO Specialty Core/Prot/Endo 500 [facility], Room [address] [place] [address], [facility] [phone] * Stool: occult blood (06/23/2019 9:59 AM SOIL CONSERVATION TEACHER) Occult Blood Negative NEG^Negati ve 06/23/2019 10:11 AM SOIL CONSERVATION TEACHER [facility] Comment: Called to RUTH PRITCHETT IN ERA @ 1010 ON 06/23/19, NB Stool specimen (specimen) 06/23/2019 9:59 AM SOIL CONSERVATION TEACHER 06/23/2019 10:05 AM SOIL CONSERVATION TEACHER Destinee Graham DO LAB - STOOLS ORDER RIMMA MISLINDA [facility] [address] [place] [address], [place] [phone] from Last 3 Months or Most Recently Relevant to Health Maintenance Additional Health Concerns Active Problems Noted Date Diagnosed Date SDOH LACK OF STABLE HOUSING 12/16/2023 Advance Directives For more information, please contact: [phone] * Full Code (Latest Code Status on [...] with patie nt/legal decision maker Care Teams Clinic Nurse Relationship Specialty Start Date End Date Loretta Elizalde PA-C [address] [place] [address] PCP - General Family Medicine 09/25/22 Олег Kaiser MD [address] [place] [address] [id number] Urology 04/05/21 Loretta Elizalde PA-C [address] [place] [address] Assigned PCP 09/22/22 Dong Craft MD [address] [place] [address] [phone] Hematology 10/09/22 Grazyna Damian, NORBERT [address] [place] [address] [id number] Assigned Cancer Care Provider 05/25/23
--- OUTSIDE RECORDS SUMMARY | 2024-03-16 07:10 | XMS_ITS | Encounter Summary ---
Author Organization [place] Address [address] [place] [address]. [place] [address] Care Team Providers Care Automation Specialist Name Role Phone Job Олег Ramírez MD Unavailable [phone] Loretta Elizalde PA-C Unavailable [phone] Loretta Elizalde PA-C Primary Care Provider [phone] Dong Craft MD Unavailable [phone] Grazyna Damian CNP Unavailable [phone] Marlene White CHW Unavailable Raul Norris [facility] Unavailable [phone] Encounter Details Date Type Department Care Team (Late st Contact Info) Description 02/05/2024 MyC Medical Advice [facility] Care Coordination [address] [place] [address] Marlene White, W Social History Tobacco Use Types Packs/Day Years [...] friends or re latives? Never 12/06/2023 Attends [employer] Services Not on file 12/05 Active Member of Clubs or Organizations Not on f ile 12/06/2023 Attends Club or Organization Meetings Not on rolando e 12/06/2023 Marital Status Not on file 12/06/2023 PHQ-2 Answer Date Recorded PHQ-2 Score 2 12/11/2023 [facility] [place] of Occupat ional Health - Occupational Stress [...] in an abandoned building, in an overnight skilled nursing, or couch-surfing.) No 12/06/2023 Are you worried [...] Info) Description 03/19/2024 7:00 AM CDT Lab [facility] [address] [place] [address] 04/28/2024 7:30 AM BLACK OXIDE COATING EQUIPMENT TENDER Office Visit [facility] [address] [place] [address] Loretta Elizalde PA-C [address] [place] [address] 09/09/2024 7:00 AM CDT Lab [facility] [address] [place] [address] 09/15/2024 8:30 AM CDT Virtual Visit [facility] [address] [place] [phone] Dong Craft MD [address] [facility], [address] [place] [address] documented as of this encounter Goals Goal [...] 4 3:28 PM CDT) No Mer Holguin, DRILL GRINDER Note: Barriers: Need to find new housing [...] achieve this goal: 1. I will contact [facility] Services at [phone] to see if they have housing options [...] documented as of this encounter Care Teams Automation Specialist Relationship Specialty Start Date End Date Loretta Elizalde PA-C [address] [place] [address] PCP - General Family Medicine 09/25/22 Олег Kaiser MD [address] [place] [address] [id number] Urology 04/05/21 Loretta Elizalde PA-C [address] [place] [address] Assigned PCP 09/22/22 Dong Craft MD [address] [place] [address] [id number] Hematology 10/09/22 Grazyna Damian, NORBERT [address] [place] [address] Assigned Cancer Care Provider 05/25/23 Marlene White, W Community Health Worker Primary Care - CC 12/16/23 Raul Norris LSW Clinic Ssis Etl Developer Primary Care - CC 12/16/23 documented as of this encounter
--- OUTSIDE RECORDS SUMMARY | 2024-03-16 07:10 | XMS_ITS | Encounter Summary ---
Author Organization [place] Address [address] [facility] [place] [address] Care Team Providers Care Work Counselor Name Role Phone Олег Kaiser MD Unavailable [phone] Loretta Elizalde PA-C Unavailable [phone] Loretta Elizalde PA-C Primary Care Provider [phone] Dong Craft MD Unavailable [phone] Grazyna Damian CNP Unavailable [phone] Marlene White CHW Unavailable Raul Norris POWER BENDER OPERATOR Unavailable [phone] Encounter Details Date Type Department Care Team (Latest Contact Info) Description 01/28/2024 Travel Social History Tobacco Use Types Packs/Day Years [...] Answer Date Recorded PHQ-2 Score 2 12/11/2023 [facility] [place] of Occupat ional Health - Occupational Stress [...] Answer Date Recorded Do you have housing? (Marvinin g is defined as stable permanent housing and does not include staying ouside in a car, in a tent, in an abandoned building, in an overnight long term, or couch-surfing.) No 12/06/2023 Are you worried [...] Upcoming Encounters Date Type Department Care Team ([facility] st Contact Info) Description 03/19/2024 7:00 AM CDT Lab [facility] [address] [place] [address] 04/28/2024 7:30 AM CERTIFIED CONTROL SYSTEMS TECHNICIAN Office Visit [facility] [address] [place] [address] Loretta Elizalde PA-C [address] [place] [address] 09/09/2024 7:00 AM CDT Lab [facility] [address] [place] [address] 09/15/2024 8:30 AM CDT Virtual Visit [facility] [address] [place] [phone] Dong Craft MD [facility] [address], [address] [address] documented as of this encounter Goals Goal [...] achieve this goal: 1. I will contact [facility] Services at [phone] to see if they have housing options [...] Time PHQ-9 Depression Total Score: 3 12/11/19 7:08 AM CDT documented as of this encounter Care Teams Work Counselor Relationship Specialty Start Date End Date Loretta Elizalde PA-C [address] [place] [address] PCP - General Family Medicine 09/25/22 Олег Kaiser MD [address] [place] [address] 268215 Urology 04/05/21 Loretta Elizalde PA-C [address] [place] [address] Assigned PCP 09/22/22 Dong Craft MD [address] [place], [place] [phone] Hematology 10/09/22 Grazyna Damian CNP [address] [id number] Assigned Cancer Care Provider 05/25/23 Marlene White, CHW Community Health Worker Primary Care - CC 12/16/23 Raul Norris LSW [facility] Primary Care - CC 12/16/23 documented as of this encounter
--- OUTSIDE RECORDS SUMMARY | 2024-03-16 07:10 | XMS_ITS | Encounter Summary ---
Author Organization [place] Address [address] [place] [address] Care Team Providers Care Timber Harvester Operator Name Role Phone Олег Kaiser MD Unavailable [phone] Loretta Elizalde PA-C Unavailable [phone] Loretta Elizalde PA-C Primary Care Provider [phone] Dong Craft MD Unavailable [phone] Grazyna Damian CNP Unavailable [phone] Marlene White CHW Unavailable Raul Norris FUEL SYSTEM MAINTENANCE SUPERVISOR Unavailable [phone] Encounter Details Date Type Department Care Team (Latest Contact Info) Description 01/24/2024 Travel Social History Tobacco Use Types Packs/Day [...] friends or re latives? Never 12/06/2023 Attends Mu-Ism Services Not on file 12/05 Active Member of Clubs or Organizations Not on f ile 12/06/2023 Attends Club or Organization Meetings Not on rolando e 12/06/2023 Marital Status Not on file 12/06/2023 PHQ-2 Answer Date Recorded PHQ-2 Score 2 12/11/2023 [facility] [place] of Occupat ional Health - Occupational Stress [...] Upcoming Encounters Date Type Department Care Team ([facility] st Contact Info) Description 03/19/2024 7:[address] [facility] [address] [place] [address] 04/28/2024 7:30 AM SALES OFFICE MANAGER Office Visit [facility] [address] [place] [address] Loretta Elizalde PA-C [address] [place] [address] 09/09/2024 7:[address] [facility] [address] [place] [address] 09/15/2024 8:30 AM CDT Virtual Visit [facility] [address] [place] [phone] Dong Craft MD [facility] [address], [address] [address] documented as of this encounter Goals Goal [...] achieve this goal: 1. I will contact [facility] Services at [phone] to see if they have housing options [...] documented as of this encounter Care Teams Timber Harvester Operator Relationship Specialty Start Date End Date Loretta Elizalde PA-C [address] [place] [address] PCP - General Family Medicine 09/25/22 Олег Kaiser MD [address] [place] [address] [id number] Urology 04/05/21 Loretta Elizalde PA-C [address] [place] [address] Assigned PCP 09/22/22 Dong Craft MD [address] [place], [place] [address] Hematology 10/09/22 Grazyna Damian CNP [address] [id number] Assigned Cancer Care Provider 05/25/23 Marlene White, CHW Community Health Worker Primary Care - CC 12/16/23 Raul Norris LSW [facility] Primary Care - CC 12/16/23 documented as of this encounter
--- OUTSIDE RECORDS SUMMARY | 2024-03-16 07:10 | XMS_ITS | Encounter Summary ---
Author Organization [place] Address [address] [facility] [place] [address] Care Team Providers Care Restuarant Crew Worker Name Role Phone Job Олег Ramírez MD Unavailable [phone] Loretta Elizalde PA-C Unavailable [phone] Loretta Elizalde PA-C Primary Care Provider [phone] Dong Craft MD Unavailable [phone] Grazyna Damian CNP Unavailable [phone] Reason for Visit * Reason Comments Med Change Request Encounter Details Date Type Department Care Team (Late st Contact Info) Description 03/06/2024 [facility] [address] [place] [address] Loretta Elizalde PA-C [address] [place] [address] Med Change Request Social History Tobacco Use Types Packs/Day Years [...] friends or re latives? Never 12/06/2023 Attends Yazidi Services Not on file 12/05 Active Member of Clubs or Organizations Not on f ile 12/06/2023 Attends Club or Organization Meetings Not on rolando e 12/06/2023 Marital Status Not on file 12/06/2023 PHQ-2 Answer Date Recorded PHQ-2 Score 2 12/11/2023 [facility] [place] of Occupat ional Health - Occupational Stress [...] in an abandoned building, in an overnight usp, or couch-surfing.) No 12/06/2023 Are you worried [...] Telephone Encounter - Faith Cano - 03/06/2024 1:13 PM CDT Started MARIANELA. Faith Cano Lead Feed Blender [facility] * Telephone Encounter - Ivana Montilla RN - 03/06/2024 12:43 PM CDT Please submit PA for Neeta 3 Plus documented in this encounter Plan of Treatment Upcoming Encounters Date Type Department Care Team (Late st Contact Info) Description 03/19/2024 7:00 AM CDT Lab [facility] [address] [place] [address] 04/28/2024 7:30 AM RAW STOCK MACHINE LOADER Office Visit [facility] [address] [place] [address] Loretta Elizalde, PAJennyC [address] [place] [address] 09/09/2024 7:00 AM CDT Lab [place] [address] [place] [address] 09/15/2024 8:30 AM CDT Virtual Visit [facility] [address] [place] [phone] Dong Craft MD [facility] [address], [address] [address] documented as of this encounter Goals Goal [...] achieve this goal: 1. I will contact [facility] Services at [phone] to see if they have housing options for me in the month of December. 2. I will contact additional resources discussed as needed . These were emailed to me on 12/16/23. 3. I will let Care Coordination know if I run in to barriers with this goal. 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) documented in this encounter Additional Health Concerns Active Problems Noted Date Diagnosed Date SDOH LACK OF STABLE HOUSING 12/16/2023 Assessment Noted Time PHQ-9 Depression Total Score: 3 12/11/19 24 7:08 AM CDT documented as of this encounter Care Teams Restuarant Crew Worker Relationship Specialty Start Date End Date Loretta Elizalde PA-C [address] [place] [address] PCP - General Family Medicine 09/25/22 Олег Kaiser MD [address] [place] [address] Urology 04/05/21 Loretta Elizalde, PAJennyC [address] [place], [place] 8032568 Assigned PCP 09/22/22 Dong Craft MD [address] [place] [address] Hematology 10/09/22 Grazyna Damian, SPORTS MEDICINE PHYSICIAN [address] [address] Assigned Cancer Care Provider 05/25/23 documented as of this encounter
--- OUTSIDE RECORDS SUMMARY | 2024-03-16 07:10 | XMS_ITS | Encounter Summary ---
Author Organization [place] Address [address] [facility] [place] [address] Care Team Providers Care Quality Control Name Role Phone Олег Kaiser MD Unavailable [phone] Loretta Elizalde PA-C Unavailable [phone] Loretta Elizalde PA-C Primary Care Provider [phone] Dong Craft MD Unavailable [phone] Grazyna Damian CNP Unavailable [phone] Marlene White CHW Unavailable Ralu Norris SUPERVISOR [employer] Unavailable [phone] Encounter Details Date Type Department Care Team (Latest Contact Info) Description 12/23/2023 Travel Social History Tobacco Use Types Packs/Day [...] friends or re latives? Never 12/06/2023 Attends Temple Services Not on file 12/05 Active Member of Clubs or Organizations Not on f ile 12/06/2023 Attends Club or Organization Meetings Not on rolando e 12/06/2023 Marital Status Not on file 12/06/2023 PHQ-2 Answer Date Recorded PHQ-2 Score 2 12/11/2023 [facility] [place] of Occupat ional Health - Occupational Stress [...] in an abandoned building, in an overnight senior living, or couch-surfing.) No 12/06/2023 Are you worried [...] Upcoming Encounters Date Type Department Care Team ([facility] st Contact Info) Description 03/19/2024 7:00 AM CDT Lab [facility] [address] [place] [address] 04/28/2024 7:30 AM CORNER BEAD OPERATOR Office [facility] [address] [place] [address] Loretta Elizalde PA-C [address] [place] [address] 09/09/2024 7:00 AM CDT Lab [facility] [address] [place] [address] 09/15/2024 8:30 AM CDT Virtual Visit [facility] [address] [place] [phone] Dong Craft MD [facility] [address], [address] [address] documented as of this encounter Goals Goal [...] achieve this goal: 1. I will contact [facility] Services at [phone] to see if they have housing options [...] documented as of this encounter Care Teams Quality Control Relationship Specialty Start Date End Date Loretta Elizalde PA-C [address] [place] [address] PCP - General Family Medicine 09/25/22 Олег Kaiser MD [address] [place] [address] 638395 Urology 04/05/21 Loretta Elizalde PA-C [address] [place] [address] Assigned PCP 09/22/22 Dong Craft MD [address] [place], [place] [address] Hematology 10/09/22 Grazyna Damian CNP [address] 0994[address] Assigned Cancer Care Provider 05/25/23 Marlene White, CHW Community Health Worker Primary Care - CC 12/16/23 Raul Norris LSW Clinic Sustainable Agriculture Specialist Primary Care - CC 12/16/23 documented as of this encounter
--- OUTSIDE RECORDS SUMMARY | 2024-03-16 07:10 | XMS_ITS | Encounter Summary ---
Author Organization [place] Address [address] [place] [address] Care Team Providers Care Senior Sas Programmer Name Role Phone Олег Kaiser MD Unavailable [phone] Loretta Elizalde PA-C Unavailable [phone] Loretta Elizalde PA-C Primary Care Provider [phone] Dong Craft MD Unavailable [phone] Grazyna Damian CNP Unavailable [phone] Marlene White CHW Unavailable Raul Norris FINAL TESTER Unavailable [phone] Encounter Details Date Type Department Care Team (Latest Contact Info) Description 12/18/2023 Travel Social History Tobacco Use Types Packs/Day [...] friends or re latives? Never 12/06/2023 Attends Yarsani Services Not on file 12/05 Active Member of Clubs or Organizations Not on f ile 12/06/2023 Attends Club or Organization Meetings Not on rolando e 12/06/2023 Marital Status Not on file 12/06/2023 PHQ-2 Answer Date Recorded PHQ-2 Score 2 12/11/2023 [facility] [place] of Occupat ional Health - Occupational Stress [...] Upcoming Encounters Date Type Department Care Team ([facility] st Contact Info) Description 03/19/2024 7:00 AM CDT Lab [facility] [address] [place] [address] 04/28/2024 7:30 AM STAVE JOINTER Office Visit [facility] [address] [place] [address] Loretta Elizalde PA-C [address] [place] [address] 09/09/2024 7:00 AM CDT Lab [facility] [address] [place] [address] 09/15/2024 8:30 AM CDT Virtual Visit [facility] [address] [place] [phone] Dong Craft MD [facility] [address], [address] [address] documented as of this encounter Goals Goal [...] achieve this goal: 1. I will contact [facility] Services at [phone] to see if they have housing options [...] as of this encounter Care Teams Senior Sas Programmer Relationship Specialty Start Date End Date Loretta Elizalde PA-C [address] [place] [address] PCP - General Family Medicine 09/25/22 Олег Kaiser MD [address] [place] [address] 059675 Urology 04/05/21 Loretta Elizalde PA-C [address] [place] [address] Assigned PCP 09/22/22 Dong Craft MD [address] [place], [place] [address] Hematology 10/09/22 Grazyna Damian CNP [address] 654742 Assigned Cancer Care Provider 05/25/23 Marlene White, CHW Community Health Worker Primary Care - CC 12/16/23 Raul Norris LSW Clinic Insurance Sales Assistant Primary Care - CC 12/16/23 documented as of this encounter
--- OUTSIDE RECORDS SUMMARY | 2024-03-16 07:10 | XMS_ITS | Encounter Summary ---
Author Organization [place] Address [address] [facility] [place] [address] Care Team Providers Care Steel Crane Operator Name Role Phone Олег Kaiser MD Unavailable [phone] Loretta Elizalde PA-C Unavailable [phone] Loretta Elizalde PA-C Primary Care Provider [phone] Dong Craft MD Unavailable [phone] Grazyna Damian CNP Unavailable [phone] Marlene White CHW Unavailable Raul Norris STEAMING MACHINE OPERATOR Unavailable [phone] Encounter Details Date Type Department Care Team (Latest Contact Info) Description 12/22/2023 Travel Social History Tobacco Use Types Packs/Day [...] friends or re latives? Never 12/06/2023 Attends Shinto Services Not on file 12/05 Active Member of Clubs or Organizations Not on f ile 12/06/2023 Attends Club or Organization Meetings Not on rolando e 12/06/2023 Marital Status Not on file 12/06/2023 PHQ-2 Answer Date Recorded PHQ-2 Score 2 12/11/2023 [facility] of Occupat ional Health - Occupational Stress [...] Upcoming Encounters Date Type Department Care Team ([facility] st Contact Info) Description 03/19/2024 7:00 AM CDT Lab [facility] [address] [place] [address] 04/28/2024 7:30 AM SEWING MACHINE OPERATOR PAPER BAGS Office Visit [facility] [address] [place] [address] Loretta Elizalde PA-C [address] [place] [address] 09/09/2024 7:00 AM CDT Lab [facility] [address] [place] [address] 09/15/2024 8:30 AM CDT Virtual Visit [facility] [address] [place] [phone] Dong Craft MD [facility] [address], [address] [address] documented as of this encounter Goals Goal [...] achieve this goal: 1. I will contact [facility] Services at [phone] to see if they have housing options [...] documented as of this encounter Care Teams Steel Crane Operator Relationship Specialty Start Date End Date Loretta Elizalde PA-C [address] [place] [address] PCP - General Family Medicine 09/25/22 Олег Kaiser MD [address] [place] [address] 620895 Urology 04/05/21 Loretta Elizalde PA-C [address] [place] [address] Assigned PCP 09/22/22 Dong Craft MD [address] [place], [place] 305035 Hematology 10/09/22 Grazyna Damian CNP [address] 526034 Assigned Cancer Care Provider 05/25/23 Marlnee White, CHW Community Health Worker Primary Care - CC 12/16/23 Raul Norris LSW Clinic Peoples[employer] Programmer Primary Care - CC 12/16/23 documented as of this encounter
--- OUTSIDE RECORDS SUMMARY | 2024-03-16 07:10 | XMS_ITS | Encounter Summary ---
Author Organization [facility] Address [address] [place] [address] Care Team Providers Care Insurance Verifier Name Role Phone Олег Kaiser MD Unavailable [phone] Loretta Elizalde PA-C Unavailable [phone] Loretta Elizalde PA-C Primary Care Provider [phone] Dong Craft MD Unavailable [phone] Grazyna Damian CNP Unavailable [phone] Reason for Visit * Reason Comments Pre-Op Exam Encounter Details Date Type Department Care Team (Late st Contact Info) Description 03/06/2024 10:30 AM CDT Office Visit [facility] [address] [place] [address] Loretta Elizalde PA-C [address] [place] [address] Preop general physical exam (Primary Dx); Rotator cuff syndrome, left; Type 2 diabetes mellitus with diabetic nephropathy, 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); Hypertension goal BP (blood pressure) < 140/90; Hyperlipidemia LDL goal <70; Moderate persistent asthma without complication; S/P gastric bypass; Iron deficiency anemia, unspecified iron deficiency anemia type; Erectile dysfunction, unspecified erectile dysfunction type; Obesity (BMI 30.0-34.9) Social History Tobacco Use Types Packs/Day Years [...] friends or re latives? Never 12/06/2023 Attends Islam Services Not on file 12/05 Active Member of Clubs or Organizations Not on f ile 12/06/2023 Attends Club or Organization Meetings Not on rolando e 12/06/2023 Marital Status Not on file 12/06/2023 PHQ-2 Answer Date Recorded PHQ-2 Score 2 12/11/2023 [facility] - Occupational Stress Questionnaire Answer Date [...] an abandoned building, in an overnight senior care, or couch-surfing.) No 12/06/2023 Are you worried [...] AM CDT documented as of this encounter Last Filed Vital Signs Vital Sign Reading [...] Mass Index 32.51 03/06/2024 10:27 AM CDT documented in this encounter Patient Instructions * Patient Instructions* Loretta Elizalde PA-C - 03/06/2024 10:30 AM CDT How to Take Your Medication Before Surgery Preoperative Medication Instructions Antiplatelet or Anticoagulation Medication Instructions - Patient is on no antiplatelet or anticoagulation medications. Additional Medication Instructions Ozempic - hold for 1 week prior to surgery - skip dose on 03/11/24 Metformin - do not take on morning of surgery Olmesartan - do not take on morning of surgery Sildenafil - hold for 24 hours prior to surgery Can take allopurinol, fluoxetine, amlodipine, rosuvastatin as you normally do Advised to avoid NSAIDS (Motrin, Ibuprofen, Aleve, Naprosyn) for one week prior to surgery. If needed, Tylenol or Acetaminophen are okay to use. Advised to avoid supplements for one week prior to surgery. Patient Education Preparing for Your Surgery For Adults Getting started In most cases, a nurse will call to review your health history and instructions. They will give youan arrival time based on your scheduled surgery time. Please be ready to share: Your doctor's clinic name and phone number Your medical, surgical, and anesthesia history A list of allergies and sensitivities A list of medicines, including herbal treatments and soyz-kqi-wxwfpto drugs Whether the patient has a legal guardian (ask how to send us the papers in advance) Note: You may not receive a call if you were seen at our PAC (Preoperative Assessment Center). Please tell us if you're --or if there's any chance you might be . Some surgeries may injure a fetus (unborn baby), so they require a test. Surgeries that are safe for a fetus don't always need a test, and you can choose whether to have one. Preparing for surgery Within 10 to 30 days of surgery: Have a pre-op exam (sometimes called an H&P, or History and Physical). This can be done at a clinic or pre-operative center. If you're having a , you may not need this exam. Talk to your care team. At your pre-op exam, talk to your care team about all medicines you take. (This includes CBD oil and any drugs, such as THC, marijuana, and other forms of cannabis.) If you need to stop any medicine before surgery, ask when to start taking it again. This is for your safety. Many medicines and drugs can make you bleed too much during surgery. Some change how well surgery (anesthesia) drugs work. Call your insurance company to let them know you're having surgery. (If you don't have insurance, call [phone].) Call your clinic if there's any change in your health. This includes a scrape or scratch near the surgery site, or any signs of a cold (sore throat, runny nose, cough, rash, fever). Eating and drinking guidelines For your safety: Unless your surgeon tells you otherwise, follow the guidelines below. Eat and drink as normal until 8 hours before you arrive for surgery. After that, no food or milk. You can spit out gum when you arrive. Drink clear liquids until 2 hours before you arrive. These are liquids you can see through, like water, Gatorade, and Propel Water. They also include plain black coffee and tea (no cream or milk). No alcohol for 24 hours before you arrive. The night before surgery, stop any drinks that contain THC. If your care team tells you to take medicine on the morning of surgery, it's okay to take it with asip of water. No other medicines or drugs are allowed (including CBD oil)--follow your care team's instructions. If you have questions the day of surgery, call your hospital or surgery center. Preventing infection Shower or bathe the night before and the morning of surgery. Follow the instructions your clinic gave you. (If no instructions, use regular soap.) Don't shave or clip hair near your surgery site. We'll remove the hair if needed. Don't smoke or vape the morning of surgery. No chewing tobacco for 6 hours before you arrive. A nicotine patch is okay. You may spit out nicotine gum when you arrive. For some surgeries, the surgeon will tell you to fully quit smoking and nicotine. We will make every effort to keep you safe from infection. We will: Clean our hands often with soap and water (or an alcohol-based hand rub). Clean the skin at your surgery site with a special soap that kills germs. Give you a special gown to keep you warm. (Cold raises the risk of infection.) Wear hair covers, masks, gowns, and gloves during surgery. Give antibiotic medicine, if prescribed. Not all surgeries need this medicine. What to bring on the day of surgery Photo ID and insurance card Copy of your health care directive, if you have one Glasses and hearing aids (bring cases) You can't wear contacts during surgery Inhaler and eye drops, if you use them (tell us about these when you arrive) CPAP machine or breathing device, if you use them A few personal items, if spending the night If you have . . . A pacemaker, ICD (cardiac defibrillator), or other implant: Bring the ID card. An implanted stimulator: Bring the remote control. A legal guardian: Bring a copy of the certified (court-stamped) guardianship papers. Please remove any jewelry, including body piercings. Leave jewelry and other valuables at home. If you're going home the day of surgery You must have a responsible adult drive you home. They should stay with you overnight as well. If you don't have someone to stay with you, and you aren't safe to go home alone, we may keep you overnight. Insurance often won't pay for this. After surgery If it's hard to control your pain or you need more pain medicine, please call your surgeon's office. Questions? If you have any questions for your care team, list them here: For informational purposes only. Not to replace the advice of your health care provider. Copyright ?? 2018 [facility]. All rights reserved. Clinically reviewed by Catracho Bearden MD. [employer] [id number] - REV 01/17. documented in this encounter Progress Notes * Loretta Elizalde PA-C - 03/06/2024 10:30 AM CDT Preoperative Evaluation [facility] [address] [facility] [address] Primary Provider: Loretta Elizalde PA-C Pre-op Performing Provider: Loretta Elizalde PA-C Mar 06, 2024 03/06/2024 Surgical Information What procedure is being done? Left rotator repair Facility or Hospital where procedure/surgery will be performed: [facility] Who is doing the procedure / surgery? dr kiara lenz Date of surgery / procedure: mar 16 Time of surgery / procedure: 7a Where do you plan to recover after surgery? at home with family Fax number for surgical facility: [phone] Assessment & Plan The proposed surgical procedure is considered INTERMEDIATE risk. Preop general physical exam - Basic metabolic panel (Ca, Cl, CO2, Creat, Gluc, K, Na, BUN); Future - Hemoglobin; Future - Basic metabolic panel (Ca, Cl, CO2, Creat, Gluc, K, Na, BUN) - Hemoglobin Rotator cuff syndrome, left Anticipating surgery Type 2 diabetes mellitus with diabetic nephropathy, 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) Chronic, recently improved control with addition of ozempic and increased focus on healthy lifestyle changes. A1c 7.5 on 01/28/24. - Continuous Glucose Sensor (FREESTYLE SHIRLENE 3 PLUS SENSOR) MISC; Change every 15 days. Hypertension goal BP (blood pressure) < 140/90 Chronic Hyperlipidemia LDL goal <70 Chronic, controlled Moderate persistent asthma without complication Chronic, controlled. ACT score 22. S/P gastric bypass Iron deficiency anemia, unspecified iron deficiency anemia type Last iron infusion was 12/23/23. Hemoglobin 14.5 today. Erectile dysfunction, unspecified erectile dysfunction type Per previous orders - Testosterone, total Obesity (BMI 30.0-34.9) - No identified additional risk factors other than previously addressed Preoperative Medication Instructions Antiplatelet or Anticoagulation Medication Instructions - Patient is on no antiplatelet or anticoagulation medications. Additional Medication Instructions Ozempic - hold for 1 week prior to surgery - skip dose on 03/11/24 Metformin - do not take on morning of surgery Olmesartan - do not take on morning of surgery Sildenafil - hold for 24 hours prior to surgery Can take allopurinol, fluoxetine, amlodipine, rosuvastatin as you normally do Advised to avoid NSAIDS (Motrin, Ibuprofen, Aleve, Naprosyn) for one week prior to surgery. If needed, Tylenol or Acetaminophen are okay to use. Advised to avoid supplements for one week prior to surgery. Recommendation Approval given to proceed with proposed procedure, without further diagnostic evaluation. The longitudinal plan of care for the diagnosis(es)/condition(s) as documented were addressed during this visit. Due to the added complexity in care, I will continue to support Alex in the subsequent management and with ongoing continuity of care. Ion Johnson is a 49 year old, presenting for the following: Pre-Op Exam 03/06/2024 10:23 AM Additional Questions Roomed by Sahara 03/06/2024 10:23 AM Patient Reported Additional Medications Patient reports taking the following new medications none HPI related to upcoming procedure: repeat left rotator cuff surgery 03/06/2024 Pre-Op Questionnaire Have you ever had a heart attack or stroke? No Have you ever had surgery on your heart or blood vessels, such as a stent placement, a coronary artery bypass, or surgery on an artery in your head, neck, heart, or legs? No Do you have chest pain with activity? No Do you have a history of heart failure? No Do you currently have a cold, bronchitis or symptoms of other infection? No Do you have a cough, shortness of breath, or wheezing? No Do you or anyone in your family have previous history of blood clots? No Do you or does anyone in your family have a serious bleeding problem such as prolonged bleeding following surgeries or cuts? No Have you ever had problems with anemia or been told to take iron pills? (!) YES usually gets iron infusion done yearly Have you had any abnormal blood loss such as black, tarry or bloody stools? (!) YES 1 year ago, with GI bleed Have you ever had a blood transfusion? (!) YES Have you ever had a transfusion reaction? No Are you willing to have a blood transfusion if it is medically needed before, during, or after yoursurgery? Yes Have you or any of your relatives ever had problems with anesthesia? No Do you have sleep apnea, excessive snoring or daytime drowsiness? No Do you have any artifical heart valves or other implanted medical devices like a pacemaker, defibrillator, or continuous glucose monitor? No Do you have artificial joints? No Are you allergic to latex? No Health Care Directive Patient does not have a Health Care Directive or Living Will: Preoperative Review of POST ACUTE CARE NURSE PRACTITIONER POST ACUTE CARE NURSE PRACTITIONER reviewed - diazepam rx from 10/2023 for procedure, not taking. Oxycocone rx for acute issue 10/2023, not taking. No other controlled substances. Status of Chronic Conditions: ASTHMA - Patient has a longstanding history of moderate-severe Asthma . Patient has been doing welloverall noting NO SYMPTOMS and continues on medication regimen consisting of inhalers as per med list without adverse reactions or side effects. 09/11/2022 7:00 AM 11/21/2023 5:44 PM 12/06/2023 4:43 PM ACT Total Scores ACT TOTAL SCORE (Goal Greater than or Equal to 20) 21 22 22 In the past 12 months, how many times did you visit the emergency room for your asthma without being admitted to the hospital? 0 0 0 In the past 12 months, how many times were you hospitalized overnight because of your asthma? 0 0 0 DIABETES - Patient has a longstanding history of DiabetesType Type II . Patient is being treated with diet, oral agents, and ozempic and denies significant side effects. Control has been good. Complicating factors include but are not limited to: hypertension and hyperlipidemia. HYPERLIPIDEMIA - Patient has a long history of significant Hyperlipidemia requiring medication for treatment with recent good control. Patient reports no problems or side effects with the medication. HYPERTENSION - Patient has longstanding history of HTN , currently denies any symptoms referable toelevated blood pressure. Specifically denies chest pain, palpitations, dyspnea, orthopnea, PND or peripheral edema. Blood pressure readings have been in normal range. Current medication regimen is aslisted below. Patient denies any side effects of medication. Patient Active Problem List Diagnosis Date Noted Upper GI bleed 10/01/2022 Priority: Medium History of Jarrett-en-Y gastric bypass 10/01/2022 Priority: Medium B12 deficiency 09/13/2022 Priority: Medium Iron deficiency anemia, unspecified iron deficiency anemia type 09/13/2022 Priority: Medium Family history of early CAD 09/11/2022 Priority: Medium His dad, paternal uncles, and paternal grandfather all had heart attacks or strokes in their 40s-50s. Moderate persistent asthma 11/08/2014 Priority: Medium Hypertension goal BP (blood pressure) < 140/90 11/08/2014 Priority: Medium Type 2 diabetes mellitus with diabetic nephropathy, goal <7% 11/08/2014 Priority: Medium Hyperlipidemia LDL goal <70 11/08/2014 Priority: Medium Recurrent major depressive disorder, in partial remission (H) 09/26/2013 Priority: Medium H/o overdose attempt (2006), hospitalized at [facility] 2009 Vitamin D deficiency 05/16/2010 Priority: Medium Gout of right knee, unspecified cause, unspecified chronicity 06/25/2008 Priority: Medium S/P gastric bypass 06/25/2008 Priority: Medium ~2001, [facility], Dr Zhou? Past Medical History: Diagnosis Date Alcohol abuse Reports sobriety since 2009 Anemia - iron deficiency Anxiety Asthma in adult, moderate persistent, uncomplicated Asthma in adult, moderate persistent, with acute exacerbation 06/23/2019 Chronic abdominal pain Depression requiring hospitalization Depressive disorder Diabetes mellitus - type 2 Dyslipidemia Gout History of blood transfusion Hypertension Ileus (H) 08/29/2017 Insomnia 09/22/2013 Pernicious anemia 09/22/2013 S/P gastric bypass 2005 Jarrett-en-Y Sepsis, due to unspecified organism, unspecified whether acute organ dysfunction present (H) 04/18/2020 Syncope 01/29/2018 Ureteral stone 04/08/2021 Past Surgical History: Procedure Laterality Date ABDOMEN SURGERY COLONOSCOPY N/A 10/30/2017 Procedure: COLONOSCOPY; colonoscopy with NO SEDATION; INCOMPLETE due to poor prep; Surgeon: Сергей Ge MD; Location: GI COLONOSCOPY N/A 12/11/2017 Procedure: COLONOSCOPY; Colonoscopy ; Surgeon: Сергей Ge MD; Location: GI COLONOSCOPY N/A 10/03/2022 Procedure: Colonoscopy; Surgeon: Jimmy Jiang MD; Location: GI COMBINED CYSTOSCOPY, RETROGRADES, URETEROSCOPY, LASER HOLMIUM LITHOTRIPSY URETER(S), INSERT STENT Right 04/08/2021 Procedure: 1. Cystourethroscopy 2. Right ureteroscopy 3. Right retrograde pyelogram with interpretation of intraoperative fluoroscopic imaging 4. Thulium Fiber laser lithotripsy with basket stone extraction 5. Right ureteral stent placement; Surgeon: Олег Kaiser MD; Location: OR ESOPHAGOSCOPY, GASTROSCOPY, DUODENOSCOPY (EGD), COMBINED N/A 10/01/2022 Procedure: Esophagoscopy, gastroscopy, duodenoscopy (EGD), combined; Surgeon: Jimmy Jiang MD; Location: [facility] GI EXCISE LESION TRUNK 07/16/2011 Procedure:EXCISE LESION TRUNK; Excision Right Axillary Hidradenitis; Surgeon:NABOR REA; Location:[facility] OR INCISION AND DRAINAGE RECTUM, COMBINED 04/02/2013 Procedure: COMBINED INCISION AND DRAINAGE RECTUM; Exam Under Anesthesia, Drainage of Rectal Abcess,placement of seyton; Surgeon: Grazyna Mccord MD; Location: [facility] OR INCISION AND DRAINAGE RECTUM, COMBINED 04/20/2013 Procedure: COMBINED INCISION AND DRAINAGE RECTUM; EXAM UNDER ANESTHESIA RECTUM, Drainage of Abcess ; Surgeon: Grazyna Mccord MD; Location: [facility] OR LAPAROSCOPIC GASTRIC BYPASS 2005 LITHOTRIPSY ROTATOR CUFF REPAIR RT/LT Left Current Outpatient Medications Medication Sig Dispense Refill albuterol (PROAIR HFA/PROVENTIL HFA/VENTOLIN HFA) 108 (90 Base) MCG/ACT inhaler Inhale 1-2 puffs into the lungs every 4 hours as needed for shortness of breath or wheezing 18 g 5 allopurinol (ZYLOPRIM) 100 MG tablet Take 1 tablet (100 mg) by mouth daily. 90 tablet 1 amLODIPine (NORVASC) 5 MG tablet Take 1 tablet (5 mg) by mouth daily 90 tablet 3 colchicine (COLCRYS) 0.6 MG tablet Take 1 tablet (0.6 mg) by mouth daily 90 tablet 0 Continuous Glucose Sensor (FREESTYLE SHIRLENE 3 PLUS SENSOR) MISC Change every 15 days. 6 each 1 Continuous Glucose Sensor (FREESTYLE SHIRLENE 3 SENSOR) MISC 1 each every 14 days. Use 1 sensor every 14 days. Use to read blood sugars per senior geotechnical engineer's instructions. 6 each 5 FLUoxetine (PROZAC) 20 MG capsule Take 1 capsule (20 mg) by mouth daily 90 capsule 0 fluticasone-vilanterol (BREO ELLIPTA) 200-25 MCG/ACT inhaler Inhale 1 puff into the lungs daily 60 each 5 metFORMIN (GLUCOPHAGE XR) 500 MG 24 hr tablet Take 2 tablets (1,000 mg) by mouth 2 times daily (with meals) 360 tablet 1 olmesartan (BENICAR) 40 MG tablet Take 1 tablet (40 mg) by mouth daily 90 tablet 3 rosuvastatin (CRESTOR) 20 MG tablet Take 1 tablet (20 mg) by mouth daily 90 tablet 3 Semaglutide, 1 MG/DOSE, (OZEMPIC) 4 MG/3ML pen Inject 1 mg subcutaneously every 7 days. Start AFTERtaking 0.5 mg once weekly for 4 weeks 3 mL 2 sildenafil (VIAGRA) 50 MG tablet Take 0.5-2 tablets (25-100 mg) by mouth daily as needed (erectile dysfunction). Start with 50 mg; reduce to 25 mg if side effects occur, can increase to maximum of 100 mg if tolerating well but incomplete response. Do not take with any nitrate medications. 30 tablet3 Allergies Allergen Reactions Nsaids Gastric Bypass Social History Tobacco Use Smoking status: Never Passive exposure: Never Smokeless tobacco: Never Substance Use Topics Alcohol use: Yes Alcohol/week: 4.0 standard drinks of alcohol Types: 4 Standard drinks or equivalent per week Comment: usually 2 drinks/day, 2 days/week Family History Problem Relation Age of Onset Hypertension Mother Hypertension Father Gout Father Cerebrovascular Disease Father 43 Lung Cancer Father Depression Sister Hypertension Sister Cerebrovascular Disease Paternal Grandfather Cerebrovascular Disease Paternal Uncle Myocardial Infarction Paternal Uncle Cerebrovascular Disease Paternal Uncle Colon Cancer No family hx of Breast Cancer No family hx of Prostate Cancer No family hx of History Drug Use No Review of Systems Constitutional, neuro, ENT, endocrine, pulmonary, cardiac, gastrointestinal, genitourinary, musculoskeletal, integument and psychiatric systems are negative, except as otherwise noted. Objective BP 138/88 Pulse 87 Temp 97.6 ??F (36.4 ??C) (Oral) Resp 16 Ht 1.74 m (5' 8.5) Wt 98.4 kg(217 lb) SpO2 99% BMI 32.51 kg/m?? Estimated body mass index is 32.51 kg/m?? as calculated from the following: Height as of this encounter: 1.74 m (5' 8.5). Weight as of this encounter: 98.4 kg (217 lb). Physical Exam GENERAL: alert and no distress EYES: Eyes grossly normal to inspection, PERRL and conjunctivae and sclerae normal HENT: ear canals and TM's normal, nose and mouth without ulcers or lesions NECK: no adenopathy, no asymmetry, masses, or scars RESP: lungs clear to auscultation - no rales, rhonchi or wheezes CV: regular rate and rhythm, normal S1 S2, no S3 or S4, no murmur, click or rub, no peripheral edema ABDOMEN: soft, nontender, no hepatosplenomegaly, no masses and bowel sounds normal MS: no gross musculoskeletal defects noted, no edema SKIN: no suspicious lesions or rashes NEURO: Normal strength and tone, mentation intact and speech normal PSYCH: mentation appears normal, affect normal/bright Recent Labs Lab Test 01/28/24 0920 12/04/23 0714 HGB 12.5* 12.1* PLT 181 216 NA -- 138 POTASSIUM -- 5.0 CR -- 0.94 A1C 7.5* 10.0* Diagnostics Recent Results (from the past 48 hour(s)) Hemoglobin Collection Time: 03/06/24 11:13 AM Result Value Ref Range Hemoglobin 14.5 13.3 - 17.7 g/dL No EKG required, no history of coronary heart disease, significant arrhythmia, peripheral arterial disease or other structural heart disease. Revised Cardiac Risk Index (RCRI) The patient has the following serious cardiovascular risks for perioperative complications: - No serious cardiac risks = 0 points RCRI Interpretation: 0 points: Class I (very low risk - 0.4% complication rate) Signed Electronically by: Loretta Elizalde PA-C A copy of this evaluation report is provided to the requesting physician. * Faith Cano - 03/06/2024 10:30 AM CDT Faxed. Faith Haas Lead Bods Developer [facility] documented in this encounter Plan of Treatment Upcoming Encounters Date Type Department Care Team (Late st Contact Info) Description 03/19/2024 7:00 AM CDT Lab [facility] [address] [place] [address] 04/28/2024 7:30 AM SUPERVISOR FISH PROCESSING Office Visit [address] [address] Loretta Elizalde, OSMAN [address] [place] [address] 09/09/2024 7:00 AM CDT Lab [facility] [address] [place] [id number] 09/15/2024 8:30 AM CDT Virtual Visit [facility] [address] [place] [address] Dong Craft MD [address] [place], [place] [id number] documented as of this encounter Goals Goal [...] 4 3:28 PM CDT) No Mer Holguin, JUNIOR MECHANICAL ENGINEER Note: Barriers: Need to find new housing [...] this goal: 1. I will contact [facility] [employer] at [phone] to see if they have housing options for me in the month of December. 2. I will contact additional resources discussed as needed . These were emailed to me on 12/16/23. 3. I will let Care Coordination know if I run in to barriers with this goal. documented as of this encounter Procedures Procedure Name Priority Date/Time Associated Diagnosis Comments TESTOSTERONE TOTAL Routine 03/06/2024 11 :13 AM CDT Erectile dysfunction, unspecified erectile dysfunction type HEMOGLOBIN Routine 03/06/2024 11:13 AM CDT Preop general physical exam BASIC METABOLIC PANEL Routine 03/06/2024 11:13 AM CDT Preop general physical exam documented in this encounter Results * (ABNORMAL) Testosterone, total (03/06/2024 11:13 AM CDT) Testosterone Total 181(L) 240 - 950 ng/dL 03/10/2024 7:44 AM CDT [facility] Blood BLOOD SPECIMEN / Unknown Venipuncture / Unknown 03/06/2024 11:13 AM CDT 03/06/2024 11:13 AM CDT Loretta Elizalde PA-C LAB - BLOOD ORDERAB LES [facility]/BGEN UM Special Drug/BGEN [address] [facility], Room 3-580 [place] [address], [facility] * Hemoglobin (03/06/2024 11:13 AM CDT) Hemoglobin 14.5 13.3 - 17.7 g/dL 03/06/2024 11:15 AM CDT LABORATORY Blood BLOOD SPECIMEN / Unknown Venipuncture / Unknown 03/06/2024 11:13 AM CDT 03/06/2024 11:13 AM CDT Loretta Elizalde PA-C LAB - BLOOD ORDERAB LES LABORATORY [facility] [place] [facility] [address] [facility] Lab (no room number, 1st floor of clinic) [place] [address], [facility] * (ABNORMAL) Basic metabolic panel [...] PM CDT [facility] Comment:eGFR calculated usin 2020 CKD-EPI equation. Calcium 10.4 8.8 - [...] LAB - BLOOD ORDERAB LES [facility] LABORATORY [facility] [address] [facility], Room [address] [place] [address], [facility] documented in this encounter Visit Diagnoses Diagnosis Preop general physical exam- Primary Other specified pre-operative examination Rotator cuff syndrome, left Type 2 diabetes mellitus with diabetic nephropathy, 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) Hypertension goal BP (blood pressure) < 140/90 Unspecified essential hypertension Hyperlipidemia LDL goal <70 Other and unspecified hyperlipidemia Moderate persistent asthma without complication Unspecified asthma S/P gastric bypass Bariatric surgery status Iron deficiency anemia, unspecified iron deficiency anemia type Erectile dysfunction, unspecified erectile dysfunction type Obesity (BMI 30.0-34.9) Obesity, unspecified documented in this encounter Additional Health Concerns Active Problems Noted Date Diagnosed Date SDOH LACK OF STABLE HOUSING 12/16/2023 Assessment Noted Time PHQ-9 Depression Total Score: 3 12/11/19 24 7:08 AM CDT documented as of this encounter Care Teams Insurance Verifier Relationship Specialty Start Date End Date Loretta Elizalde PA-C [address] [place] [address] PCP - General Family Medicine 09/25/22 Олег Kaiser MD [address] [place] [address] [id number] Urology 04/05/21 Loretta Elizalde PA-C [address] [place] [address] Assigned PCP 09/22/22 Dong Craft MD [address] [place] [address] [id number] Hematology 10/09/22 Grazyna Damian CNP [address] [place] [address] Assigned Cancer Care Provider 05/25/23 documented as of this encounter
--- OUTSIDE RECORDS SUMMARY | 2024-03-16 07:10 | XMS_ITS | Encounter Summary ---
Author Organization [place] Address [address] [facility] [address] Care Team Providers Care Sales And Marketing Agent Name Role Phone Олег Kaiser MD Unavailable [phone] Loretta Elizalde PA-C Unavailable [phone] Loretta Elizalde PA-C Primary Care Provider [phone] Dong Craft MD Unavailable Grazyna Damian SPIRAL WINDER Unavailable [phone] Marlene White CHW Unavailable [phone] Raul Norris THREE DIMENSIONAL MAP MODELER Unavailable [phone] Reason for Visit * Reason Comments Infusion * Treatment and Therapy Plans (Routine) - Authorized Specialty Diagnoses / Procedures Referred By Contmontez t Referred To Contact Infusion Therapy Diagnoses Iron deficiency anemia, unspecified iron deficiency anemia type Upper GI bleed Procedures ZZC IRON DEXTRAN INJ, 50MG Grazyna Damian, SPIRAL WINDER [address] [facility] [address] [place] [address] Rh Cancer Infus [facility] [address] [place] [address] Referral ID Status Reason Start Date Expiration Date V isits Requested Visits Authorized [id number] Authorized 12/05/2023 05/26/2024 99 99 Encounter Details Date Type Department Care Team (Late st Contact Info) Description 12/23/2023 8:30 AM CDT Infusion Therapy Visit [facility] [address] [place] [address] Grazyna Damian, SPIRAL WINDER [address] [facility] [address] [place] [address] History of Jarrett-en-Y gastric bypass (Primary Dx); Iron deficiency anemia, unspecified iron deficiency anemia type; S/P gastric bypass; Upper GI bleed Social History Tobacco Use Types Packs/Day Years [...] friends or re latives? Never 12/06/2023 Attends Taoism Services Not on file 12/05 Active Member of Clubs or Organizations Not on f ile 12/06/2023 Attends Club or Organization Meetings Not on rolando e 12/06/2023 Marital Status Not on file 12/06/2023 PHQ-2 Answer Date Recorded PHQ-2 Score 2 12/11/2023 [facility] [place] of Occupat ional Health - Occupational Stress [...] in an abandoned building, in an overnight long-term, or couch-surfing.) No 12/06/2023 Are you worried [...] Sign Reading Time Taken Comments Blood Pressure 111/77 12/23/2023 8:50 AM CDT Pulse 86 12/23/2023 8:50 AM CDT Temperature 36.1 ??C (97 ??F) 12/23/2023 8:50 AM CDT Respiratory Rate 18 12/23/2023 8:50 AM CDT Oxygen Saturation 99% 12/23/2023 8:50 AM CDT Inhaled Oxygen Concentration - - Weight - - Height - - Body Mass Index - - documented in this encounter Progress Notes * Sofi Chaudhry RN - 12/23/2023 8:30 AM CDT Infusion Nursing Note: Alex Goodwin III presents today for Infed. Patient seen by provider today: No Lawn Sprinkler Installer present during visit today: Not Applicable. Note: Last Infed infusion was 11/13/2022 with test dose and tolerated well. Intravenous Access: Peripheral IV placed. Treatment Conditions: Not Applicable. Post Infusion Assessment: Patient tolerated infusion without incident. Site patent and intact, free from redness, edema or discomfort. No evidence of extravasations. Access discontinued per protocol. Discharge Plan: Discharge instructions reviewed with: Patient. Patient and/or family verbalized understanding of discharge instructions and all questions answered. AVS to patient via [employer] Roundtable[employer]. Patient will return 01/27 for next appointment. Patient discharged in stable condition accompanied by: self. Departure Mode: Ambulatory. Sofi Chaudhry RN documented in this encounter Plan of Treatment Upcoming Encounters Date Type Department Care Team (Late st Contact Info) Description 03/19/2024 7:00 AM CDT Lab [place] [address] [place] [address] 04/28/2024 7:30 AM ALUMINUM MOLDING MACHINE OPERATOR Office Visit [facility] [address] [place] [address] Loretta Elizalde PA-C [address] [place] [address] 09/09/2024 7:00 AM CDT Lab [place] [address] [place] [address] 09/15/2024 8:30 AM CDT Virtual Visit [facility] [address] [place] [address] Dong Craft MD [address] [facility], [address] [place] [address] documented as of this encounter Goals Goal Patient Goal Type Associated Problems Recent Progress Patient-Stated? Author Other General No [place], Dina, POLICY LOAN CALCULATOR Note: Goal Statement: I will use my [...] 4 3:28 PM CDT) No Mer Holguin, THREE DIMENSIONAL MAP MODELER Note: Barriers: Need to find new housing [...] this goal: 1. I will contact [facility] Services at [phone] to see if they have housing options for me in the month of December. 2. I will contact additional resources discussed as needed . These were emailed to me on 12/16/23. 3. I will let Care Coordination know if I run in to barriers with this goal. documented as of this encounter Visit Diagnoses Diagnosis History of Jarrett-en-Y gastric bypass- Primary Bariatric surgery status Iron deficiency anemia, unspecified iron deficiency anemia type S/P gastric bypass Bariatric surgery status Upper GI bleed Hemorrhage of gastrointestinal tract, unspecified documented in this encounter Administered Medications Inactive Administered Medications - up to 3 most recent administrations Medication Order MAR Action Action Date Dose Rate Site iron dextran complex (INFED) 1,000 mg in sodium chloride 0.9 % 570 mL intermittent infusion 1,000 mg, Intravenous, ONCE, On 12/23/23 at 0900, For 1 dose, Administer over 1 Hours, Stop all other infusions while iron dextran infusing. Adult patients: If patient had a previous iron dextran test dose and infusion withOUT a reaction, omit the test dose and proceed with rapid iron dextran protocol. Infuse 1000 mg IV over 1 hour. $New Bag 12/23/2023 9:08 AM CDT 1,000 mg 570 mL/hr sodium chloride (PF) 0.9% PF flush 3-20 mL 3-20 mL, Intracatheter, EVERY 1 MIN PRN, line flush, post meds or blood draw, Starting on Sat12/23/23 at 0849, PIV: 3 mL after each use & PRN to access patency Midline, valved catheters, or PORT- 10mL after each use, PRN to access patency, 20 mL post blood draw Non-valved catheters: 10 mL after each use & PRN to access patency; 20mL flush pre and post blood draws or blood administration Apheresis: only for use when patient is NOT under care of apheresis services; 10 mL after each use & PRN to assess patency; 20 mL after blood draw. $Given 12/23/2023 9:12 AM CDT 20 mLs sodium chloride 0.9% BOLUS 250 mL Intravenous, 250 mL, ONCE, On Sat12/23/23 at 0900, For 1 dose, Concomitant fluids. $New Bag 12/23/2023 9:12 AM CDT 250 mLs documented in this encounter Additional Health Concerns Active Problems Noted Date Diagnosed Date SDOH LACK OF STABLE HOUSING 12/16/2023 Assessment Noted Time PHQ-9 Depression Total Score: 3 12/11/19 24 7:08 AM CDT documented as of this encounter Care Teams Sales And Marketing Agent Relationship Specialty Start Date End Date Loretta Elizalde PA-C [address] [place] [address] PCP - General Family Medicine 09/25/22 Олег Kaiser MD [address] [place] [address] [id number] Urology 04/05/21 Loretta Elizalde PA-C [address] [place] [address] Assigned PCP 09/22/22 Dong Craft MD [address] [place] [address] Hematology 10/09/22 Grazyna Damian, NORBERT [address] [place] [address] [address] [place], [place] [address] Assigned Cancer Care Provider 05/25/23 Marlene White, W Community Health Worker Primary Care - CC 12/16/23 Raul Norris LSW Clinic Network Lead Primary Care - CC 12/16/23 documented as of this encounter
--- OUTSIDE RECORDS SUMMARY | 2024-03-16 07:10 | XMS_ITS | Encounter Summary ---
Author Organization [facility] Address [address] [facility] [place] [address] Care Team Providers Care Automotive Title Clerk Name Role Phone Олег Kaiser MD Unavailable [phone] Loretta Elizalde PA-C Unavailable [phone] Loretta Elizalde PA-C Primary Care Provider [phone] Dong Craft MD Unavailable [phone] Grazyna Damian CNP Unavailable [phone] Encounter Details Date Type Department Care Team (Latest Contact Info) Description 03/06/2024 Travel Social History Tobacco Use Types Packs/Day [...] friends or re latives? Never 12/06/2023 Attends Mandaeism Services Not on file 12/05 Active Member of Clubs or Organizations Not on f ile 12/06/2023 Attends Club or Organization Meetings Not on rolando e 12/06/2023 Marital Status Not on file 12/06/2023 PHQ-2 Answer Date Recorded PHQ-2 Score 2 12/11/2023 [facility] [place] of Occupat ional Health - Occupational Stress [...] in an abandoned building, in an overnight fdc, or couch-surfing.) No 12/06/2023 Are you worried [...] Info) Description 03/19/2024 7:00 AM CDT Lab [facility] [address] [place] [address] 04/28/2024 7:30 AM CERTIFIED PHARMACY TECHNICIAN Office Visit [facility] [address] [place] [address] Loretta Elizalde PA-C [address] [place] [address] 09/09/2024 7:00 AM CDT Lab [facility] [address] [place] [address] 09/15/2024 8:30 AM CDT Virtual Visit [facility] [address] [place] [phone] Dong Craft MD [facility] [facility], [address] [place] [address] documented as of this encounter Goals Goal [...] achieve this goal: 1. I will contact [facility] Services at [phone] to see if they have housing options [...] as of this encounter Care Teams Automotive Title Clerk Relationship Specialty Start Date End Date Loretta Elizalde PA-C [address] [place] [address] PCP - General Family Medicine 09/25/22 Олег Kaiser MD [address] [place] [address] [id number] Urology 04/05/21 Loretta Elizalde PA-C [address] [place] [address] Assigned PCP 09/22/22 Dong Craft MD [address] [place] [address] [id number] Hematology 10/09/22 Grazyna Damian CNP [address] [place] [address] [id number] Assigned Cancer Care Provider 05/25/23 documented as of this encounter
--- OUTSIDE RECORDS SUMMARY | 2024-03-16 07:10 | XMS_ITS | Encounter Summary ---
Author Organization [place] Address [address] [place] [address]. [place] [address] Care Team Providers Care Bank Accountant Name Role Phone Олег Kaiser MD Unavailable [phone] Loretta Elizalde PA-C Unavailable [phone] Loretta Elizalde PA-C Primary Care Provider [phone] Dong Craft MD Unavailable [phone] Grazyna Damian CNP Unavailable [phone] Marlene White CHW Unavailable Raul Norris CONSTRUCTION PROJECT ASSISTANT Unavailable [phone] Reason for Visit * Reason Comments RECHECK * Consultation (Routine) - Closed Specialty Diagnoses / Procedures Referred By Lindy holcomb Referred To Contact Medical Oncology Diagnoses Iron deficiency anemia, unspecified iron deficiency anemia type Cancer Care [address] [place] [phone] Referral ID Status Reason Start Date Expiration Date Visits Re quested Visits Authorized [id number] Closed 10/09/2022 10/09/2023 1 1 Encounter Details Date Type Department Care Team (Late st Contact Info) Description 12/18/2023 7:30 AM CDT Virtual Visit [facility] [address] [place] [address] Grazyna Damian, SLUG PRESS OPERATOR [address] [facility] [address] [place] [address] Iron deficiency anemia, unspecified iron deficiency anemia type (Primary Dx); History of Jarrett-en-Y gastric bypass Social History Tobacco Use Types Packs/Day Years [...] Answer Date Recorded PHQ-2 Score 2 12/11/2023 [facility] of Occupat ional Health - Occupational Stress [...] Answer Date Recorded Do you have housing? (Marvinmagdaleno g is defined as stable permanent housing [...] Sign Reading Time Taken Comments Blood Pressure - - Pulse - - Temperature - - Respiratory Rate - - Oxygen Saturation - - Inhaled Oxygen Concentration - - Weight 102.1 kg (225 lb) 12/18/2023 7:04 AM CDT Height 175.3 cm (5' 9) 12/18/2023 7:04 AM CDT Body Mass Index 33.23 12/18/2023 7:04 AM CDT documented in this encounter Progress Notes * Grazyna Damian CNP - 12/18/2023 7:30 AM CDT Images from the original note were not included. Virtual Visit Details Type of service: Video Visit Originating Location (pt. Location): Home Distant Location (provider location): Off-site Platform used for Video Visit: [facility] Hematology Follow-up Visit [address] [place] [address] Outpatient Visit Note: Patient: Alex Goodwin III : 1975 PABLO: December 18, 2023 Reason for Visit: Alex Goodwin III is seen in follow-up of deficiency anemia presumably due to GI bleeding Assessment: Alex Goodwin III is a 48 year old man with a history of gastric bypass surgery and iron deficiency anemia secondary to GI bleeding (suspected due to melena) and poor iron absorption. Given his iatrogenic inability to absorb iron, he received one dose of IV INFeD on 11/13/22 with subsequent improvement in ferritin and hemoglobin. His most recent ferritin level on 12/04/2023 has decreased to 17 along with a slight drop in his hemoglobin to 12.1. I recommended repeat iron infusion with INFeD which is scheduled in [place] on 12/23/2023. We will plan to repeat labs in 3 months and then every 6 to 12 months thereafter. I encouraged Alex to call if he develops symptoms of fatigue, shortness of breath, palpitations or lightheadedness in which case we can always check labs sooner. Iencouraged follow-up with [facility] for completion of capsule enterography. Recommendations: Repeat INFeD infusion 12/22 as planned Repeat CBC with differential and ferritin in 3 months Follow-up with GI (previously saw [facility]) for consideration of capsule study versus repeat EGD/colonoscopy Counseled patient to seek urgent care for severe abdominal pain or hematochezia and contact our office for any increased signs of anemia such as fatigue, shortness of breath, palpitations, dizziness or lightheadedness RTC with Dr. Craft and labs in 9 months Grazyna Damian CNP History: Alex Goodwin III is a 48 year old man with a history of obesity s/p Jarrett-en-Y (2005), chronic abdominal pain, DM2, hypertension, dyslipidemia, moderate persistent asthma, anxiety/depression, and history of alcohol abuse who presented to his local ED on 10/01/2022 for evaluation of nausea, vomiting, diarrhea, and upper abdominal pain where he was found to have melena and iron deficiency anemia. Urgent EGD and colonoscopy found no source of bleeding. He was transfused and felt much improved sowas discharged from the hospital on PO iron and planning for small bowel enterography. He received one dose of INFeD 1g IV on 11/13/22. Interval History: Alex is seen today for routine hematology follow-up. He was last scheduled to see Dr. Craft in September although missed this appointment due to lack of transportation. - Overall he reports feeling physically well over the past few months. Denies any significant changes in his energy level or limiting fatigue - Appetite has been stable. Denies any abdominal bloating or bowel changes. Bowel movements are regular. Denies dark or bloody stools - Confirms he has not followed up with GI for a capsule study - Previous abdominal discomfort has resolved. Denies any heartburn or reflux symptoms PMH is notable for DM2, HTN, dyslipidemia, asthma, anxiety and depression, alcohol use disorder. Surgical history notable for Jarrett-en-Y (2005) Medications reviewed in EMR Physical Exam: There were no vitals taken for this visit. Video physical exam General: Patient appears well in no acute distress. Skin: No visualized rash or lesions on visualized skin Eyes: EOMI, no erythema, sclera icterus or discharge noted Resp: Appears to be breathing comfortably without accessory muscle usage, speaking in full sentences, no cough MSK: Appears to have normal range of motion based on visualized movements Neurologic: No apparent tremors, facial movements symmetric Psych: affect pleasant, alert and oriented Labs: Latest Reference Range & Units 12/04/23 07:14 Sodium 135 - 145 mmol/L 138 Potassium 3.4 - 5.3 mmol/L 5.0 Chloride 98 - 107 mmol/L 103 Carbon Dioxide (CO2) 22 - 29 mmol/L 22 Urea Nitrogen 6.0 - 20.0 mg/dL 13.4 Creatinine 0.67 - 1.17 mg/dL 0.94 GFR Estimate >60 mL/min/1.73m2 >90 Calcium 8.6 - 10.0 mg/dL 9.3 Anion Gap 7 - 15 mmol/L 13 Albumin 3.5 - 5.2 g/dL 4.5 Protein Total 6.4 - 8.3 g/dL 7.9 Alkaline Phosphatase 40 - 150 U/L 76 ALT 0 - 70 U/L 30 AST 0 - 45 U/L 27 Bilirubin Total <=1.2 mg/dL 0.7 Cholesterol <200 mg/dL 124 Patient Fasting? Yes Ferritin 31 - 409 ng/mL 17 (L) Glucose 70 - 99 mg/dL 200 (H) HDL Cholesterol >=40 mg/dL 42 Hemoglobin A1C <5.7 % 10.0 (H) LDL Cholesterol Calculated <=100 mg/dL 49 Non HDL Cholesterol <130 mg/dL 82 Triglycerides <150 mg/dL 163 (H) WBC 4.0 - 11.0 10e3/uL 5.1 Hemoglobin 13.3 - 17.7 g/dL 12.1 (L) Hematocrit 40.0 - 53.0 % 38.3 (L) Platelet Count 150 - 450 10e3/uL 216 RBC Count 4.40 - 5.90 10e6/uL 4.58 MCV 78 - 100 fL 84 MCH 26.5 - 33.0 pg 26.4 (L) MCHC 31.5 - 36.5 g/dL 31.6 RDW 10.0 - 15.0 % 13.6 % Neutrophils % 58 % Lymphocytes % 29 % Monocytes % 6 % Eosinophils % 6 % Basophils % 0 Absolute Basophils 0.0 - 0.2 10e3/uL 0.0 Absolute Eosinophils 0.0 - 0.7 10e3/uL 0.3 Absolute Immature Granulocytes <=0.4 10e3/uL 0.0 Absolute Lymphocytes 0.8 - 5.3 10e3/uL 1.5 Absolute Monocytes 0.0 - 1.3 10e3/uL 0.3 % Immature Granulocytes % 0 Absolute Neutrophils 1.6 - 8.3 10e3/uL 3.0 Absolute NRBCs 10e3/uL 0.0 NRBCs per 100 WBC <1 /100 0 (L): Data is abnormally low (H): Data is abnormally high I reviewed the above labs today Imaging: None documented in this encounter Nursing Notes * Taylor Mccrary - 12/18/2023 7:30 AM CDT Current patient location: [address] [place] [address] Is the patient currently in the state of [place]? YES Visit mode:VIDEO If the visit is dropped, the patient can be reconnected by: VIDEO VISIT: Text to cell phone: Telephone Information: Mobile Not on file. and VIDEO VISIT: Send to e-mail at: Will anyone else be joining the visit? NO (If patient encounters technical issues they should call [phone]) How would you like to obtain your AVS? MyChart Are changes needed to the allergy or medication list? Pt declined med review and Pt stated no med changes Are refills needed on medications prescribed by this physician? NO Reason for visit: RECHKISHA Mccrary VVF documented in this encounter Plan of Treatment Upcoming Encounters Date Type Department Care Team (Late st Contact Info) Description 03/19/2024 7:00 AM CDT Lab [facility] [address] [place] [address] 04/28/2024 7:30 AM EXCEL SPECIALIST Office Visit [facility] [address] [place] [phone] Loretta Elizalde PA-C [address] [place], [place] [id number] 09/09/2024 7:00 AM CDT Lab [facility] [address] [place] [address] 09/15/2024 8:30 AM CDT Virtual Visit [facility] [address] [place] [phone] Dong Craft MD [facility] [facility], [address] [address] documented as of this encounter Goals Goal [...] 4 3:28 PM CDT) No Mer Holguin, CONSTRUCTION PROJECT ASSISTANT Note: Barriers: Need to find new housing [...] this goal: 1. I will contact [facility] Services at [phone] to see if they have housing options for me in the month of December. 2. I will contact additional resources discussed as needed . These were emailed to me on 12/16/23. 3. I will let Care Coordination know if I run in to barriers with this goal. documented as of this encounter Visit Diagnoses Diagnosis Iron deficiency anemia, unspecified iron deficiency anemia type- Primary History of Jarrett-en-Y gastric bypass Bariatric surgery status documented in this encounter Additional Health Concerns Active Problems Noted Date Diagnosed Date SDOH LACK OF STABLE HOUSING 12/16/2023 Assessment Noted Time PHQ-9 Depression Total Score: 3 12/11/19 24 7:08 AM CDT documented as of this encounter Care Teams Bank Accountant Relationship Specialty Start Date End Date Loretta Elizalde PA-C [address] [place] [address] PCP - General Family Medicine 09/25/22 Олег Kaiser MD [address] [place] [address] [id number] Urology 04/05/21 Loretta Elizalde PA-C [address] [place] [address] Assigned PCP 09/22/22 Dong Craft MD [address] [place] [address] Hematology 10/09/22 Grazyna Damian, NORBERT [address] [place] [address] [address] [place], [place] 869[address] Assigned Cancer Care Provider 05/25/23 Marlene White, W Community Health Worker Primary Care - CC 12/16/23 Raul Norris LSW Clinic Sorting Machine Operator Primary Care - CC 12/16/23 documented as of this encounter
--- OUTSIDE RECORDS SUMMARY | 2024-03-16 07:10 | XMS_ITS | Encounter Summary ---
Author Organization [place] Address [address] [facility] [place] [address] Care Team Providers Care Operations Administrative Assistant Name Role Phone Job, Олег Ramírez MD Unavailable [phone] Loretta Elizalde PA-C Unavailable [phone] Loretta Elizalde PA-C Primary Care Provider [phone] Dong Craft MD Unavailable [phone] Grazyna Damian CNP Unavailable [phone] Marlene White CHW Unavailable [phone] Raul Norris PLANT QUALITY MANAGER Unavailable [phone] Reason for Visit * Reason Comments Recheck Medication Encounter Details Date Type Department Care Team (Late st Contact Info) Description 01/28/2024 10:00 AM CDT Office Visit [facility] [address] [place] [address] Loretta Elizalde PA-C [address] [place] [address] Type 2 diabetes mellitus with diabetic nephropathy, 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) (Primary Dx); Iron deficiency anemia, unspecified iron deficiency anemia type; Gout of right knee, unspecified cause, unspecified chronicity; Erectile dysfunction, unspecified erectile dysfunction type; Hypertension goal BP (blood pressure) < 140/90 Social History Tobacco Use Types Packs/Day Years [...] friends or re latives? Never 12/06/2023 Attends Christianity Services Not on file 12/05 Active Member of Clubs or Organizations Not on f ile 12/06/2023 Attends Club or Organization Meetings Not on [place] e 12/06/2023 Marital Status Not on file 12/06/2023 PHQ-2 Answer Date Recorded PHQ-2 Score 2 12/11/2023 [facility] - Occupational Stress Questionnaire Answer Date [...] in an abandoned building, in an overnight mcc, or couch-surfing.) No 12/06/2023 Are you worried [...] Sign Reading Time Taken Comments Blood Pressure 144/96 01/28/2024 10:00 AM CDT Pulse 70 01/28/2024 9:39 AM CDT Temperature 36.6 ??C (97.9 ??F) 01/28/2024 9:39 AM CD T Respiratory Rate 13 01/28/2024 9:39 AM CDT Oxygen Saturation 100% 01/28/2024 9:39 AM CDT Inhaled Oxygen Concentration - - Weight 100.9 kg (222 lb 6.4 oz) 01/28/2024 9:39 AM CDT Height 175.3 cm (5' 9) 01/28/2024 9:39 AM CDT Body Mass Index 32.84 01/28/2024 9:39 AM CDT documented in this encounter Patient Instructions * Patient Instructions* Loretta Elizalde PA-C - 01/28/2024 10:00 AM CDT Increase ozempic to 1 mg once weekly after completing 4 weeks of 0.5 mg once weekly Add in snack before bed Monitor for low blood sugars and let me know if you continue to have lows after adding nighttime snack Follow-up in 3 months for diabetes recheck Your blood pressure was elevated at your appointment today. Elevated blood pressure can increase your risk of a heart attack, stroke and heart failure. For this reason, it is important to monitor your blood pressure closely. If you have access to a home blood pressure monitor or are able to check your blood pressure at a local pharmacy in the next week I would recommend doing so and scheduling follow-up if blood pressure is elevated. How to Check Your Blood Pressure at Home Make sure your blood pressure cuff is validated (produces accurate readings). Go to validateBP.org for a list of blood pressure cuffs. Take your blood pressure right after you wake up and right before going to bed. Make sure the readings are before you take your medications, smoke and after you empty your bladder. Sit with good back support and feet flat on the floor. Have your blood pressure cuff resting at your heart level. If your numbers are consistently above 140/90, please schedule a follow-up visit to discuss. * Attachments The following attachments cannot be sent through Care Everywhere. * Erectile Dysfunction (Italian) * Sildenafil Oral Tablet (SILDENAFIL - ORAL) (Italian) documented in this encounter Progress Notes * Loretta Elizalde PA-C - 01/28/2024 10:00 AM CDT Assessment & Plan Type 2 diabetes mellitus with diabetic nephropathy, 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) Improved over last few months with med changes and healthy lifestyle modifications. He would like to increase dose of ozempic for better glucose control as well as weight loss benefit. He has had a few lows in 50s-60s overnight; recommend adding PM snack. He has CGM so will let me know if he continues to have lows. Otherwise follow-up in 3 months for recheck. - Hemoglobin A1c; Future - Hemoglobin A1c - Continuous Glucose Sensor (FREESTYLE SHIRLENE 3 SENSOR) MISC; 1 each every 14 days. Use 1 sensor every 14 days. Use to read blood sugars per deckhand fishing vessel's instructions. - Semaglutide, 1 MG/DOSE, (OZEMPIC) 4 MG/3ML pen; Inject 1 mg subcutaneously every 7 days. Start AFTER taking 0.5 mg once weekly for 4 weeks Iron deficiency anemia, unspecified iron deficiency anemia type Per specialist - CBC with platelets differential - Ferritin Gout of right knee, unspecified cause, unspecified chronicity Doing well after starting allopurinol. Repeat uric acid wnl. Continue. - Uric acid; Future - Uric acid Erectile dysfunction, unspecified erectile dysfunction type Would like to try Viagra. Will start with 50 mg; reduce to 25 mg if side effects occur, can increase to maximum of 100 mg if tolerating well but incomplete response. Discussed that he should take 1 hour prior to sexual activity, take on empty stomach, avoid grapefruit/grapefruit juice and alcohol. Discussed risks/benefits/side effects. He does not take any nitrates. He will return for early AM testosterone lab. - TSH with free T4 reflex; Future - TSH with free T4 reflex - sildenafil (VIAGRA) 50 MG tablet; Take 0.5-2 tablets (25-100 mg) by mouth daily as needed (erectile dysfunction). Start with 50 mg; reduce to 25 mg if side effects occur, can increase to maximum of100 mg if tolerating well but incomplete response. Do not take with any nitrate medications. - Testosterone, total; Future Hypertension goal BP (blood pressure) < 140/90 Monitor home BP and follow-up if elevated - Home Blood Pressure Monitor Order for DME - ONLY FOR DME The longitudinal plan of care for the diagnosis(es)/condition(s) as documented were addressed during this visit. Due to the added complexity in care, I will continue to support Alex in the subsequent management and with ongoing continuity of care. Ion Johnson is a 48 year old, presenting for the following health issues: Recheck Medication 01/28/2024 9:27 AM Additional Questions Roomed by MR Accompanied by NA 01/28/2024 9:27 AM Patient Reported Additional Medications Patient reports taking the following new medications NEIL History of Present Illness Diabetes: He presents for follow up of diabetes. He is checking home blood glucose with a continuous glucose monitor. He checks blood glucose before and after meals. Blood glucose is sometimes over 200 and sometimes under 70. He is aware of hypoglycemia symptoms including weakness. He has no concerns regarding his diabetes at this time. He is not experiencing numbness or burning in feet, excessive thirst, blurry vision, weight changes or redness, sores or blisters on feet. He eats 2-3 servings of fruits and vegetables daily.He consumes 0 sweetened beverage(s) daily.He exercises with enough effort to increase his heart rate 30 to 60 minutes per day. He exercises with enough effort to increase his heart rate 4 days per week. He is missing 1 dose(s) of medications per week. He is not taking prescribed medications regularly due to remembering to take. Hyperlipidemia Follow-Up Are you regularly taking any medication or supplement to lower your cholesterol? Yes- rosuvastatin Are you having muscle aches or other side effects that you think could be caused by your cholesterol lowering medication? No Hypertension Follow-up Do you check your blood pressure regularly outside of the clinic? No Are you following a low salt diet? As best as he can Are your blood pressures ever more than 140 on the top number (systolic) OR more than 90 on the bottom number (diastolic), for example 140/90? Unknown Medication Followup of Ozempic 2 mg/3mL pen Taking Medication as prescribed: yes Side Effects: None Medication Helping Symptoms: yes Metformin 1000 mg BID Ozepmic started about 1.5 months ago, currently taking 0.5 mg once weekly (has done 2 doses of 0.5 mg dose so far and will do 3rd dose tomorrow) Tolerating medication well No side effects or concerns Using CGM Time in range in last 30 days: 82% >250: 4% [id number]: 11% 54-69: 3% Lows were overnight and he was alerted by CGM No symptoms He tends to exercise later in the afternoon/evening and have an early dinner, no snack before bed Lab Results Component Value Date A1C 7.5 01/28/2024 A1C 10.0 12/04/2023 A1C 8.9 09/11/2022 A1C 10.3 04/07/2021 A1C 10.9 04/18/2020 A1C 7.2 06/23/2019 A1C 8.7 01/07/2019 A1C 7.6 01/30/2018 A1C 8.4 08/29/2017 Medication Followup of Allopurinol 100 mg and Colcrys 0.6 mg Taking Medication as prescribed: yes Side Effects: None Medication Helping Symptoms: yes Started allopurinol 100 mg daily about 1.5 months ago and colchicine. Due to recheck uric acid levels. No recent gout flares. Concerns with erectile dysfunction - difficulty attaining and maintaining erection. He was not sexually active for last few years but recently has started new relationship and has been noticing problems. He did not have problems a few years ago. He is wondering if he could try viagra. He does not take any NTG or nitrate medications. He was having housing concerns but recently found a new apartment and is moving in soon. Review of Systems Constitutional, neuro, ENT, endocrine, pulmonary, cardiac, gastrointestinal, genitourinary, musculoskeletal, integument and psychiatric systems are negative, except as otherwise noted. Objective BP (!) 144/96 Pulse 70 Temp 97.9 ??F (36.6 ??C) (Oral) Resp 13 Ht 1.753 m (5' 9) Wt 100.9 kg (222 lb 6.4 oz) SpO2 100% BMI 32.84 kg/m?? Body mass index is 32.84 kg/m??. Physical Exam GENERAL: alert and no distress RESP: lungs clear to auscultation - no rales, rhonchi or wheezes CV: regular rate and rhythm, normal S1 S2, no S3 or S4, no murmur, click or rub, no peripheral edema NEURO: Normal strength and tone, mentation intact and speech normal PSYCH: mentation appears normal, affect normal/bright Results for orders placed or performed in visit on 01/28/24 Ferritin Status: Normal Result Value Ref Range Ferritin 275 31 - 409 ng/mL Hemoglobin A1c Status: Abnormal Result Value Ref Range Hemoglobin A1C 7.5 (H) 0.0 - 5.6 % CBC with platelets and differential Status: Abnormal Result Value Ref Range WBC Count 4.5 4.0 - 11.0 10e3/uL RBC Count 4.54 4.40 - 5.90 10e6/uL Hemoglobin 12.5 (L) 13.3 - 17.7 g/dL Hematocrit 37.6 (L) 40.0 - 53.0 % MCV 83 78 - 100 fL MCH 27.5 26.5 - 33.0 pg MCHC 33.2 31.5 - 36.5 g/dL RDW 15.6 (H) 10.0 - 15.0 % Platelet Count 181 150 - 450 10e3/uL % Neutrophils 55 % % Lymphocytes 33 % % Monocytes 7 % % Eosinophils 4 % % Basophils 0 % % Immature Granulocytes 0 % Absolute Neutrophils 2.5 1.6 - 8.3 10e3/uL Absolute Lymphocytes 1.5 0.8 - 5.3 10e3/uL Absolute Monocytes 0.3 0.0 - 1.3 10e3/uL Absolute Eosinophils 0.2 0.0 - 0.7 10e3/uL Absolute Basophils 0.0 0.0 - 0.2 10e3/uL Absolute Immature Granulocytes 0.0 <=0.4 10e3/uL Uric acid Status: Normal Result Value Ref Range Uric Acid 5.7 3.4 - 7.0 mg/dL TSH with free T4 reflex Status: Normal Result Value Ref Range TSH 0.80 0.30 - 4.20 uIU/mL CBC with platelets differential Status: Abnormal Narrative The following orders were created for panel order CBC with platelets differential. Procedure Abnormality Status --------- ------ CBC with platelets and d...[[id number]] Abnormal Final result Please view results for these tests on the individual orders. Signed Electronically by: Loretta Elizalde PA-C documented in this encounter Plan of Treatment Upcoming Encounters Date Type Department Care Team (Late st Contact Info) Description 03/19/2024 7:00 AM CDT Lab [address] [address] 04/28/2024 7:30 AM TAX MANAGER PUBLIC Office Visit [facility] [address] [place] [phone] Loretta Elizalde PA-C [address] [place], [place] [id number] 09/09/2024 7:00 AM CDT Lab [place] [address] [place] [address] 09/15/2024 8:30 AM CDT Virtual Visit [facility] [address] [place] [address] Dong Craft MD [address] [facility], [address] [place], [place] [id number] documented as of this encounter Goals Goal [...] achieve this goal: 1. I will contact [facility] at [phone] to see if they have housing options for me in the month of December. 2. I will contact additional resources discussed as needed . These were emailed to me on 12/16/23. 3. I will let Care Coordination know if I run in to barriers with this goal. documented as of this encounter Procedures Procedure Name Priority Date/Time Associated Diagnosis Comments CBC WITH PLATELETS AND DIFFERENTIAL Routine 01/28/2024 9:20 AM CDT Iron deficiency anemia, unspecified iron deficiency anemia type CBC WITH PLATELETS & DIFFERENTIAL Routine 01/28/2024 9:20 AM CDT Iron deficiency anemia, unspecified iron deficiency anemia type URIC ACID Add-On 01/28/2024 9:20 AM CDT Gout of right knee, unspecified cause, unspecified chronicity TSH WITH FREE T4 REFLEX Add-On 01/28/2024 9:20 AM CDT Erectile dysfunction, unspecified erectile dysfunction type HEMOGLOBIN A1C Routine 01/28/2024 9:20 AM CDT Type 2 diabetes mellitus with diabetic nephropathy, 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) FERRITIN Routine 01/28/2024 9:20 AM CDT Iron deficiency anemia, unspecified iron deficiency anemia type documented in this encounter Results * (ABNORMAL) Testosterone, total (03/06/2024 11:13 AM CDT) Testosterone Total 181(L) 240 - 950 ng/dL 03/10/2024 7:44 AM CDT [facility] Blood BLOOD SPECIMEN / Unknown Venipuncture / Unknown 03/06/2024 11:13 AM CDT 03/06/2024 11:13 AM CDT Loretta Elizalde PA-C LAB - BLOOD ORDERAB LES [facility] [address] [facility], Room [address] * TSH with free T4 reflex (01/28/2024 9:20 AM CDT) Pathologist [facility] TSH 0.80 0.30 - 4.20 uIU/mL 01/28/2024 4:19 PM CDT [facility] Blood BLOOD SPECIMEN / Unknown Venipuncture / Unknown 01/28/2024 9:20 AM CDT 01/28/2024 9:20 AM CDT Loretta Eliazlde PA-C LAB - BLOOD ORDERAB LES [facility] [place] [facility] [address] [facility], Room [address] * Uric acid (01/28/2024 9:20 AM CDT) Pathologist [facility] Uric Acid 5.7 3.4 - 7.0 mg/dL 01/28/2024 4:19 PM CDT [facility] Blood BLOOD SPECIMEN / Unknown Venipuncture / Unknown 01/28/2024 9:20 AM CDT 01/28/2024 9:20 AM CDT Loretta Elizalde PA-C LAB - BLOOD ORDERAB LES [facility] [place] [facility] [address] [facility], [address] [place] [phone] * (ABNORMAL) CBC with platelets and differential [...] 0.0 <=0.4 10e3/uL 01/28/2024 9:26 AM CDT LABORATORY Blood BLOOD SPECIMEN / Unknown Venipuncture / Unknown 01/28/2024 9:20 AM CDT 01/28/2024 9:20 AM CDT Grazyna Damian CNP LAB - BLOOD ORDERABL ES LABORATORY [facility] [place] [facility] [address] [facility] (no room number, 1st floor of clinic) [place] [address], [facility] * Ferritin (01/28/2024 9:20 AM CDT) Pathologist [facility] Ferritin 275 31 - 409 ng/mL 01/28/2024 4:19 PM CDT U LABORATORY Blood BLOOD SPECIMEN / Unknown Venipuncture / Unknown 01/28/2024 9:20 AM CDT 01/28/2024 9:20 AM CDT Grazyna Damian CNP LAB - BLOOD ORDERABL ES U LABORATORY [facility] [place] [facility] [address] [facility], [address] [place] [address], [facility] * (ABNORMAL) Hemoglobin A1c (01/28/2024 9:20 AM CDT) Hemoglobin A1C 7.5(H) 0.0 - 5.6 % 01/28/2024 9:34 AM CDT LABORATORY Comment: Normal <5.7% Prediabetes 5.7-6.4% ?? Diabetes 6.5% or higher Note: Adopted from ADA consensus guidelines. 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)- Primary Iron deficiency anemia, unspecified iron deficiency anemia type Gout of right knee, unspecified cause, unspecified chronicity Erectile dysfunction, unspecified erectile dysfunction type Hypertension goal BP (blood pressure) < 140/90 Unspecified essential hypertension documented in this encounter Additional Health Concerns Active Problems Noted Date Diagnosed Date SDOH LACK OF STABLE HOUSING 12/16/2023 Assessment Noted Time PHQ-9 Depression Total Score: 3 12/11/19 24 7:08 AM CDT documented as of this encounter Care Teams Operations Administrative Assistant Relationship Specialty Start Date End Date Loretta Elizalde PA-C [address] [place] [address] PCP - General Family Medicine 09/25/22 Олег Kaiser MD [address] [place] [address] Urology 04/05/21 Loretta Elizalde PA-C [address] [place] [address] Assigned PCP 09/22/22 Dong Craft MD [address] [place] [id number] Hematology 10/09/22 Grazyna Damian CNP [address] [facility] [address] [place] [address] Assigned Cancer Care Provider 05/25/23 Marlene White, W Community Health Worker Primary Care - CC 12/16/23 Raul Norris LSW Clinic Polymerization Helper Primary Care - CC 12/16/23 documented as of this encounter
--- OUTSIDE RECORDS SUMMARY | 2024-03-16 07:10 | XMS_ITS | Encounter Summary ---
Author Organization [place] Address [address] [facility] [address] Care Team Providers Care Classified Advertising Clerk Name Role Phone Job, Олег Ramírez MD Unavailable [phone] Loretta Elizalde PA-C Unavailable [phone] Loretta Elizalde PA-C Primary Care Provider [phone] Dong Craft MD Unavailable [phone] Grazyna Damian CNP Unavailable [phone] Marlene White CHW Unavailable [phone] Raul Norris YARD GENERAL CAR SUPERVISOR Unavailable [phone] Reason for Visit * Reason Comments Medication Refill Encounter Details Date Type Department Care Team (Late st Contact Info) Description 01/30/2024 Refill [facility] [address] [place] [address] Loretta Elizalde PA-C [address] [place] [address] Medication Refill Social History Tobacco [...] friends or re latives? Never 12/06/2023 Attends Church Services Not on file 12/05 Active Member of Clubs or Organizations Not on f ile 12/06/2023 Attends Club or Organization Meetings Not on [place] e 12/06/2023 Marital Status Not on file 12/06/2023 PHQ-2 Answer Date Recorded PHQ-2 Score 2 12/11/2023 [facility]at ional [facility] - Occupational Stress [...] Are you worried about losing your housing? Patipatricia nt declined 12/06/2023 Financial Resource Strain Answer [...] encounter Miscellaneous Notes * Telephone Encounter - Leonela James RN - 01/30/2024 11:16 AM CDT Called patient, he said this request was sent in error. Picked up new rx on 01/28/24 for increased dose already. Refill request denied. Leonela James RN on 01/30/2024 at 11:16 AM * Telephone Encounter - Anamaria Son RN - 01/30/2024 10:04 AM CDT Clinic RN: Please contact patient because the last prescription was a taper dose (not in RN protocol). We need to know what dose patient is taking. Determine the current dose, then route to provider and ask provider to update the SIG and approve or deny the prescription. Anamaria Son RN, BSN [facility] documented in this encounter Plan of Treatment Upcoming Encounters Date Type Department Care Team (Late st Contact Info) Description 03/19/2024 7:00 AM CDT Lab [facility] [address] [place] [phone] 04/28/2024 7:30 AM DIRECTOR OF ONLINE MERCHANDISING [facility] [address] [place] [phone] Loretta Elizalde [place]uben [address] [place] [address] 09/09/2024 7:00 AM CDT Lab [facility] [address] [place] [address] 09/15/2024 8:30 AM CDT Virtual Visit [facility] [address] [place] [address] Dong Craft MD [address] [facility] [facility] [address] [place] [address] documented as of this encounter Goals Goal [...] achieve this goal: 1. I will contact [facility] Services at [phone] to see if they have housing options [...] documented as of this encounter Care Teams Classified Advertising Clerk Relationship Specialty Start Date End Date Loretta Elizalde PA-C [address] [place] [address] PCP - General Family Medicine 09/25/22 Олег Kaiser MD [address] [place], [place] [id number] Urology 04/05/21 Loretta Elizalde PA-C [address] [place] [address] Assigned PCP 09/22/22 Dong Craft MD [address] [place] [address] Hematology 10/09/22 Grazyna Damian, NORBERT [address] [place] [address] Assigned Cancer Care Provider 05/25/23 Marlene White, CHW Community Health Worker Primary Care - CC 12/16/23 Ralu Norris LSW Clinic Retail Cosmetics Sales Beauty Advisor Primary Care - CC 12/16/23 documented as of this encounter
--- OUTSIDE RECORDS SUMMARY | 2024-03-16 07:10 | XMS_ITS | Encounter Summary ---
Author Organization [place] Address [address] [facility] [place] [address] Care Team Providers Care Tabber Name Role Phone Job Олег Ramírez MD Unavailable [phone] Loretta Elizalde PA-C Unavailable [phone] Loretta Elizalde PA-C Primary Care Provider [phone] Dong Craft MD Unavailable [phone] Grazyna Damian CNP Unavailable [phone] Marlene White CHW Unavailable Raul Norris MANAGER SERVICES Unavailable [phone] Reason for Visit * Reason Comments Referral Entered automaticall y based [facility] Encounter Details Date Type Department Care Team (Late st Contact Info) Description 12/22/2023 11:45 AM CDT E-Visit [facility] [address] [place] [address] Loretta Elizalde PA-C [address] [place] [address] Referral (Entered automatically based on p... Social History Tobacco Use Types Packs/Day Years [...] friends or re latives? Never 12/06/2023 Attends Mosque Services Not on file 12/05 Active Member of Clubs or Organizations Not on f ile 12/06/2023 Attends Club or Organization Meetings Not on rolando e 12/06/2023 Marital Status Not on file 12/06/2023 PHQ-2 Answer Date Recorded PHQ-2 Score 2 12/11/2023 [facility] - Occupational Stress Questionnaire Answer Date Recorded [...] AM CDT documented as of this encounter Patient Instructions * Patient Instructions* Loretta Elizalde PA-C - 12/22/2023 11:45 AM CDT Thank you for choosing us for your care. I think a clinic or virtual visit would be the best next step based on your symptoms. Please schedule a clinic appointment; you won???t be charged for this eVisit. You can schedule an appointment by clicking here in [employer], or call [phone]. documented in this encounter Miscellaneous Notes * Telephone Encounter - Loretta Elizalde PA-C - 12/23/2023 10:00 AM CDT Provider E-Visit time total (minutes): 4 minutes Loretta Elizalde PA-C documented in this encounter Plan of Treatment Upcoming Encounters Date Type Department Care Team (Late st Contact Info) Description 03/19/2024 7:00 AM CDT Lab [facility] [address] [place] [address] 04/28/2024 7:30 AM CANAL BOAT CAPTAIN Office Visit [facility] [id number] [place] [address] Loretta Elizalde PA-C [address] [place] [address] 09/09/2024 7:00 AM CDT Lab [facility] [address] [place] [address] 09/15/2024 8:30 AM CDT Virtual Visit [facility] [address] [place] [address] Dong Craft MD [address], [address] [place], [place] [address] documented as of this encounter Goals Goal [...] 4 3:28 PM CDT) No Mer Holguin, MANAGER SERVICES Note: Barriers: Need to find new housing [...] achieve this goal: 1. I will contact [facility] [employer] [facility] at [phone] to see if they have housing options for me in the month of December. 2. I will contact additional resources discussed as needed . These were emailed to me on 12/16/23. 3. I will let Care Coordination know if I run in to barriers with this goal. documented as of this encounter Visit Diagnoses Diagnosis Erectile dysfunction, unspecified erectile dysfunction type- Primary documented in this encounter Additional Health Concerns Active Problems Noted Date Diagnosed Date SDOH LACK OF STABLE HOUSING 12/16/2023 Assessment Noted Time PHQ-9 Depression Total Score: 3 12/11/19 24 7:08 AM CDT documented as of this encounter Care Teams Tabber Relationship Specialty Start Date End Date Loretta Elizalde PA-C [address] [place] [address] PCP - General Family Medicine 09/25/22 Олег Kaiser MD [address] [place] [address] Urology 04/05/21 Loretta Elizalde PA-C [address] [place] [address] Assigned PCP 09/22/22 Dong Craft MD [address] [place], [place] [id number] Hematology 10/09/22 Grazyna Damian CNP [address] [place] [address] [id number] Assigned Cancer Care Provider 05/25/23 Marlene White, CHW Community Health Worker Primary Care - CC 12/16/23 Raul Norris LSW Clinic Transit Mixer Driver Primary Care - CC 12/16/23 documented as of this encounter
--- OUTSIDE RECORDS SUMMARY | 2024-03-16 07:11 | XMS_ITS | Encounter Summary ---
Author Organization [place] Address [address] [facility] [place] [address] Care Team Providers Care Candle Molder Name Role Phone JobОлег MD Unavailable [phone] Loretta Elizalde PA-C Unavailable [phone] Loretta Elizalde PA-C Primary Care Provider [phone] Dong Craft MD Unavailable [phone] Grazyna Damian CNP Unavailable [phone] Marlene White CHW Unavailable [phone] Mer Holguin ADJUNCT NURSING FACULTY Unavailable Marlene White CHW Unavailable Raul Norris ADJUNCT NURSING FACULTY Unavailable [phone] Encounter Details Date Type Department Care Team (Late st Contact Info) Description 08/19/2023 MyC Medical Advice [facility] [address] [address] Eleanor Schwartz Social History Tobacco [...] Upcoming Encounters Date Type Department Care Team ([facility] st Contact Info) Description 03/19/2024 7:[address] [facility] [address] [place] [address] 04/28/2024 7:30 AM SUPERVISOR STEFFEN HOUSE Office Visit [facility] [address] [place] [address] Loretta Elizalde PA-C [address] [place], [place] [address] 09/09/2024 7:[address] [facility] [address] [place] [address] 09/15/2024 8:30 AM CDT Virtual Visit [facility] 9[address] [place] [address] [facility] [facility], [address] [address] documented as of this encounter Goals Goal [...] documented as of this encounter Care Teams Candle Molder Relationship Specialty Start Date End Date Loretta Elizalde PA-C [address] [place] [address] PCP - General Family Medicine 09/25/22 Олег Kaiser MD [address] [place] [address] Urology 04/05/21 Loretta Elizalde PAJennyC [address] [place] [address] Assigned PCP 09/22/22 Dong Craft MD [address] [place] [address] Hematology 10/09/22 Grazyna Damian CNP [address] [place] [address] Assigned Cancer Care Provider 05/25/23 Marlene White, [facility] Community Health Worker Primary Care - CC 12/11/23 Mer Holguin, [facility] Lead Daily Sales Audit Clerk Primary Care - CC 12/12/2312/15 Marlene White, [facility] Community Health Worker Primary Care - CC 12/16/23 Raul Norris ADJUNCT NURSING FACULTY Clinic Daily Sales Audit Clerk Primary Care - CC 12/16/23 documented as of this encounter
--- OUTSIDE RECORDS SUMMARY | 2024-03-16 07:11 | XMS_ITS | Encounter Summary ---
Author Organization [place] Address [address] [facility] [place] [address] Care Team Providers Care Shipyard Laborer Name Role Phone Clinic, [facility] Unavailable Jennifer Pond MD Primary Care Provider + [phone] [facility] [place] Camilo [place] Primary Care Pro vider Dany Hirsch Primary Care Provider [phone] Johnie Farmer Primary Care Provider [phone] JobОлег bergeron MD Unavailable +[phone] Deven Schulte MD Unavailable [phone] Олег Kaiser MD Unavailable +[phone] Loretta Elizalde PA-C Unavailable [phone] Олег Kaiser MD Unavailable +[phone] Loretta Elizalde PA-C Primary Care Provider [phone] Deven Schulte MD Unavailable [phone] Dong Craft MD Unavailable [phone] Dong Craft MD Unavailable [phone] Grazyna Damian TABLE OPERATOR Unavailable [phone] Marlene White CHW Unavailable [phone] Mer Holguin CORE MAKER Unavailable [phone] Marlene White CHW Unavailable Raul Norris CORE MAKER Unavailable [phone] Encounter Details Date Type Department Care Team (Late Contact Info) Description 06/16/2015 [facility] [address] [place] [phone] Ruth Leigh, TRANSITIONAL LIVING SPECIALIST Social History Tobacco Use Types Packs/Day Years [...] Department Care Team (Late Contact Info) Description 03/19/2024 7:00 AM CDT Lab [address] [address] 04/28/2024 7:30 AM REFRIGERATOR ASSEMBLER Office Visit [facility] [address] [place] [address] Loretta Elizalde PA-C [address] [place], [place] [address] 09/09/2024 7:00 AM CDT Lab [address] [address] 09/15/2024 8:30 AM CDT Virtual Visit [facility] 909 [place] [address] Dong Craft MD [address] [facility], [address] [place] [address] documented as of this encounter Visit Diagnoses Not on filedocumented in this encounter Additional Health Concerns Infection Onset Date Last Indicated Resolved Time Rule Out COVID-19 10/09/2019 10/09/2019 10/09/2019 9:36 PM CDT Rule Out COVID-19 11/20/2019 11/20/2019 11/21/2019 5:10 PM CDT Rule Out COVID-19 11/25/2019 11/25/2019 11/26/2019 4:41 PM CDT Rule Out COVID-19 04/18/2020 04/18/2020 04/18/2020 4:22 PM REFRIGERATOR ASSEMBLER COVID-19 04/18/2020 04/18/2020 05/09/2020 11:4 0 PM REFRIGERATOR ASSEMBLER documented as of this encounter Care Teams Shipyard Laborer Relationship Specialty Start Date End Date Jennifer Pond MD [address] [facility] [place] [address] PCP - General Internal Medicine 11/08/14 08/26/16 [facility] [address] [place] [address] PCP - General 08/27/16 10/26/16 Dany Hirsch [address] [place] [address] PCP - General Family Practice 10/27/16 01/29/18 Johnie Farmer [address] [place] [address] PCP - General Family Practice 01/30/18 09/24/22 Loretta Elizalde PA-C [address] [place] [address] PCP - General Family Medicine 09/25/[address] [address] 06/14/11 08/26/16 Олег Kaiser MD [address] [place], [place] 214865 Urology 04/05/21 Deven Schulte MD [address] [place] [address] 474915 Assigned Surgical Provider 04/23/21 09/21/22 Олег Kaiser MD [address] [place] [address] Assigned Surgical Provider 04/16/21 04/22/21 Loretta Elizalde PA-C [address] [place], [place] 206[address] Assigned PCP 09/22/22 Олег Kaiser MD [address] [place] [address] Assigned Surgical Provider 09/22/22 09/28/22 Deven Schulte MD 909 [place], [place] 6[address]115 Assigned Surgical Provider 09/29/22 10/19/22 Dong Craft MD 909 [place] [address] Hematology 10/09/22 Dong Craft MD [address] [place] [address] Assigned Cancer Care Provider 11/24/22 05/24/23 Grazyna Damian, TABLE OPERATOR [address] [address] Assigned Cancer Care Provider 05/25/23 Marlene White, W Community Health Worker Primary Care - CC 12/11/23 12/12/23 Mer Holguin, [facility] Lead Dairy Cattle Farm Worker Primary Care - CC 12/12/2312/15 Marlene White, [facility] Community Health Worker Primary Care - CC 12/16/23 02/19/24 Raul Norris, [facility] Clinic Dairy Cattle Farm Worker Primary Care - CC 12/16/23 02/19/24 documented as of this encounter
--- OUTSIDE RECORDS SUMMARY | 2024-03-16 07:11 | XMS_ITS | Encounter Summary ---
Author Organization [place] Address [address] [facility] [place] [address] Care Team Providers Care Shrimp Pond Laborer Name Role Phone Олег Kaiser MD Unavailable [phone] Loretta Elizalde PA-C Unavailable [phone] Loretta Elizalde PA-C Primary Care Provider [phone] Dong Craft MD Unavailable [phone] Grazyna Damian CNP Unavailable [phone] Marlene White [facility] Unavailable [phone] Encounter Details Date Type Department Care Team (Latest Contact Info) Description 12/11/2023 Travel Social History Tobacco Use Types Packs/Day [...] friends or re latives? Never 12/06/2023 Attends Hindu Services Not on file 12/05 Active Member of Clubs or Organizations Not on f ile 12/06/2023 Attends Club or Organization Meetings Not on rolando e 12/06/2023 Marital Status Not on file 12/06/2023 PHQ-2 Answer Date Recorded PHQ-2 Score 2 12/11/2023 [facility] - Occupational Stress Questionnaire Answer [...] Info) Description 03/19/2024 7:00 AM CDT Lab [facility] [address] [place] [address] 04/28/2024 7:30 AM HEAD MILLER Office Visit [facility] [address] [place] [address] Loretta Elizalde PA-C [address] [place] [address] 09/09/2024 7:00 AM CDT Lab [facility] [address] [place] [address] 09/15/2024 8:30 AM CDT Virtual Visit [facility] [address] [place] [address] Dong Craft MD [address] [facility], [address] [place] [address] documented as of this encounter Goals Goal [...] documented as of this encounter Care Teams Shrimp Pond Laborer Relationship Specialty Start Date End Date Loretta Elizalde PA-C [address] [place] [address] PCP - General Family Medicine 09/25/22 Олег Kaiser MD [address] [place] [address]1515 Urology 04/05/21 Loretta Elizalde, PA-C [address] [place], [place] 7501168 Assigned PCP 09/22/22 Dong Craft MD [address] [place] [address] 424925 Hematology 10/09/22 Garzyna Damian, NORBERT [address] [place] [address] 674125 Assigned Cancer Care Provider 05/25/23 Marlene White, W Community Health Worker Primary Care - CC 12/11/23 documented as of this encounter
--- OUTSIDE RECORDS SUMMARY | 2024-03-16 07:11 | XMS_ITS | Encounter Summary ---
Author Organization [place] Address [address] [facility] [place] [address] Care Team Providers Care Explosives Detonator Name Role Phone Clinic, [facility] Unavailable Jennifer Pond MD Primary Care Provider + [phone] [facility] Camilo [place] Primary Care Pro vider Dany Hirsch Primary Care Provider [phone] Johnie Farmer Primary Care Provider [phone] JobОлег bergeron MD Unavailable +[phone] Deven Schulte MD Unavailable [phone] Олег Kaiser MD Unavailable +[phone] Loretta Elizalde PA-C Unavailable [phone] Олег Kaiser MD Unavailable [phone] Loretta Elizalde PA-C Primary Care Provider [phone] Deven Schulte MD Unavailable [phone] Dong Craft MD Unavailable [phone] Dong Craft MD Unavailable [phone] Grazyna Damian DENTAL PROSTHETIST Unavailable [phone] Marlene White CHW Unavailable [phone] Mer Holguin RESEARCH INTERN Unavailable [phone] Marlene White CHW Unavailable Raul Norris RESEARCH INTERN Unavailable Encounter Details Date Type Department Care Team (Late Contact Info) Description 10/13/2015 [facility] [address] [place] [phone] Ruth Leigh, AFUA Social History Tobacco Use Types Packs/Day Years [...] Info) Description 03/19/2024 7:00 AM CDT Lab [address] [address] 04/28/2024 7:30 AM DIRECT MAIL CLERK Office Visit [facility] [address] [place] [address] Loretta Elizalde PA-C [address] [place], [place] [address] 09/09/2024 7:00 AM CDT Lab [address] [address] 09/15/2024 8:30 AM CDT Virtual Visit [facility] 909 [place] [address] Dong Craft MD [address] [facility], [address] [place] [address] documented as of this encounter Visit Diagnoses Not on filedocumented in this encounter Additional Health Concerns Infection Onset Date Last Indicated Resolved Time Rule Out COVID-19 10/09/2019 10/09/2019 10/09/2019 9:36 PM CDT Rule Out COVID-19 11/20/2019 11/20/2019 11/21/2019 5:10 PM CDT Rule Out COVID-19 11/25/2019 11/25/2019 11/26/2019 4:41 PM CDT Rule Out COVID-19 04/18/2020 04/18/2020 04/18/2020 4:22 PM DIRECT MAIL CLERK COVID-19 04/18/2020 04/18/2020 05/09/2020 11:4 0 PM DIRECT MAIL CLERK documented as of this encounter Care Teams Explosives Detonator Relationship Specialty Start Date End Date Jennifer Pond MD [address] [facility] [place] [address] PCP - General Internal Medicine 11/08/14 08/26/16 [facility] [address] [place] [address] PCP - General 08/27/16 10/26/16 Dany Hirsch [address] [place] [address] PCP - General Family Practice 10/27/16 01/29/18 Johnie Farmer [address] [place] [address] PCP - General Family Practice 01/30/18 09/24/22 Loretta Elizalde PA-C [address] [place] [address] PCP - General Family Medicine 09/25/[address] [address] 06/14/11 08/26/16 Олег Kaiser MD 420 [place], [place] 85[address] Urology 04/05/21 Deven Schulte MD [address] [place] [address] 022765 Assigned Surgical Provider 04/23/21 09/21/22 Олег Kaiser MD [address] [place] [address] Assigned Surgical Provider 04/16/21 04/22/21 Loretta Elizalde PA-C [address] [place], [place] 269[address] Assigned PCP 09/22/22 Олег Kaiser MD [address] [place] [address] Assigned Surgical Provider 09/22/22 09/28/22 Deven Schulte MD [address] [place], [place] 85[address] Assigned Surgical Provider 09/29/22 10/19/22 Dong Craft MD 909 [place] [address] Hematology 10/09/22 Dong Craft MD [address] [place] [address] Assigned Cancer Care Provider 11/24/22 05/24/23 Grazyna Damian, DENTAL PROSTHETIST [address] [address] Assigned Cancer Care Provider 05/25/23 Marlene White, W Community Health Worker Primary Care - CC 12/11/23 12/12/23 Mer Holguin, [facility] Lead Chief Yeoman Primary Care - CC 12/12/2312/15 Marlene White, [facility] Community Health Worker Primary Care - CC 12/16/23 02/19/24 Raul Norris, [facility] Clinic Chief Yeoman Primary Care - CC 12/16/23 02/19/24 documented as of this encounter
--- OUTSIDE RECORDS SUMMARY | 2024-03-16 07:11 | XMS_ITS | Encounter Summary ---
Author Organization [place] Address [address] [place] [address] Care Team Providers Care Laborer Operator Name Role Phone Job, Олег Ramírez MD Unavailable [phone] Loretta Elizalde PA-C Unavailable [phone] Loretta Elizalde PA-C Primary Care Provider [phone] Dong Craft MD Unavailable [phone] Grazyna Damian DIE INSPECTOR Unavailable [phone] Marlene White CHW Unavailable [phone] Mer Holguin ANESTHESIOLOGIST ASSISTANT Unavailable [phone] Marlene White CHW Unavailable [phone] Raul Norris ANESTHESIOLOGIST ASSISTANT Unavailable [phone] Encounter Details Date Type Department Care Team (Late st Contact Info) Description 12/04/[address] [facility] [address] [place] [address] Grazyna Damian, DIE INSPECTOR [address] [facility] [address] [place] [address] Social History Tobacco Use Types Packs/Day Years Used Date Smoking Tobacco: Never Smokeless Tobacco: Never Alcohol Use Standard Drinks/Week Comments Yes 3 (1 standard drink = 0.6 oz pur e alcohol) rare Social Connection and Isolation Panel [NHANES] A nswer Date Recorded Frequency of Communication with Friends and Fami ly Not on file 12/06/2023 How often do you get together with friends or re latives? Never 12/06/2023 Attends Jewish Services Not on file 12/05 Active Member of Clubs or Organizations Not on f ile 12/06/2023 Attends Club or Organization Meetings Not on rolando e 12/06/2023 Marital Status Not on file 12/06/2023 PHQ-2 Answer Date Recorded PHQ-2 Score 4 11/06/2023 [facility] - Occupational Stress Questionnaire Answer [...] Upcoming Encounters Date Type Department Care Team ([facility] st Contact Info) Description 03/19/2024 7:00 AM CDT Lab [place] [address] [place] [address] 04/28/2024 7:30 AM VEHICLE SALES PROFESSIONAL Office [facility] [address] [place] [address] Loretta Elizalde PA-C [address] [place] [address] 09/09/2024 7:00 AM CDT Lab [place] [address] [place] [address] 09/15/2024 8:30 AM CDT Virtual Visit [facility] [address] [place] [address] Dong Craft MD [facility] [facility], [address] [address] documented as of this encounter Goals Goal [...] documented as of this encounter Care Teams Laborer Operator Relationship Specialty Start Date End Date Loretta Elizalde PA-C [address] [place] [address] PCP - General Family Medicine 09/25/22 Олег Kaiser MD [address] [place] [address] 998055 Urology 04/05/21 Loretta Elizalde PA-C [address] [place] [address] Assigned PCP 09/22/22 Dong Craft MD [address] [place] [address] 770345 Hematology 10/09/22 Grazyna Damian CNP [address] [place] [address] 269275 Assigned Cancer Care Provider 05/25/23 Marlene White, [facility] Community Health Worker Primary Care - CC 12/11/23 Mer Holguin, [facility] Lead Dry House Worker Primary Care - CC 12/12/2312/15 Marlene White, [facility] Community Health Worker Primary Care - CC 12/16/23 Raul Norris, [facility] Dry House Worker Primary Care - CC 12/16/23 documented as of this encounter
--- OUTSIDE RECORDS SUMMARY | 2024-03-16 07:11 | XMS_ITS | Encounter Summary ---
Author Organization [place] Address [address] [place] [address] Care Team Providers Care Environmental Engineer Scientist Name Role Phone Marleny Johnie Wood Primary Care Provider [phone] Олег Kaiser MD Unavailable +[phone] Deven Schulte MD Unavailable [phone] Loretta Elizalde PA-C Unavailable +[phone] Олег Kaiser MD Unavailable + Loretta Elizalde PA-C Primary Care Provider [phone] Deven Schulte MD Unavailable [phone] Dong Craft MD Unavailable +[phone] Dong Craft MD Unavailable +[phone] Rickie Grazyna SOCIAL HUMAN SERVICES ASSISTANTS Unavailable [phone] Marlene White CHW Unavailable +[phone] Mer Holguin BLUEPRINT BLOCKER Unavailable +[phone] Marlene White CHW Unavailable +[phone] Raul Norris BLUEPRINT BLOCKER Unavailable [phone] Encounter Details Date Type Department Care [...] Orientation Straight 01/28/2024 9: 34 AM CDT COVID-19 Exposure Response Date Recorded In the last month, have you been in contact with someone who was confirmed or suspected to have Coronavirus / COVID-19? No / Unsure 07/15/2021 6:20 PM TUNG NUT GROWER documented as of this encounter Plan of Treatment Upcoming Encounters Date Type Department Care Team (Late st Contact Info) Description 03/19/2024 7:00 AM CDT Lab [facility] [address] [place] [address] 04/28/2024 7:30 AM TUNG NUT GROWER Office Visit [facility] [address] [place] [address] Loretta Elizalde PA-C [address] [place] [address] 09/09/2024 7:00 AM CDT Lab [facility] [address] [place] [address] 09/15/2024 8:30 AM CDT Virtual Visit [facility] [address] [place] [address] Dong Craft MD [facility] [address], [address] [address] documented as of this encounter Visit Diagnoses Not on filedocumented in this encounter Care Teams Environmental Engineer Scientist Relationship Specialty Start Date End Date Johnie Farmer PCP - General Family Practice 01/30/18 09/24/22 Loretta Elizalde PA-C [address] [place] [address] PCP - General Family Medicine 09/25/22 Олег Kaiser MD [address] [place] [address] 484185 Urology 04/05/21 Deven Schulte MD [address] [place] [address] [id number] Assigned Surgical Provider 04/23/21 09/21/22 Loretta Elizalde PA-C [address] [place] [address] Assigned PCP 09/22/22 Олег Kaiser MD [address] [place] [address] Assigned Surgical Provider 09/22/22 09/28/22 Deven Schulte MD [address] [place], [place] [address] Assigned Surgical Provider 09/29/22 10/19/22 Dong Craft MD [address] [place], [place] 606535 Hematology 10/09/22 Dong Craft MD [address] [place] [address], [address] [address] Assigned Cancer Care Provider 11/24/22 05/24/23 Grazyna Damian CNP [address] [facility] [address] [place], [place] 079[address] Assigned Cancer Care Provider 05/25/23 Marlene White, [facility] Community Health Worker Primary Care - CC 12/11/23 Mer Holguin, [facility] Lead Petroleum Geology Faculty Member Primary Care - CC 12/12/2312/15 Marlene White, [facility] Community Health Worker Primary Care - CC 12/16/23 Raul Norris, [facility] Clinic Petroleum Geology Faculty Member Primary Care - CC 12/16/23 documented as of this encounter
--- OUTSIDE RECORDS SUMMARY | 2024-03-16 07:11 | XMS_ITS | Encounter Summary ---
Author Organization [place] Address [address] [facility] [place] [address] Care Team Providers Care Information Strategist Name Role Phone Marleny Johnie Wood Primary Care Provider [phone] Олег Kaiser MD Unavailable +[phone] Deevn Schulte MD Unavailable [phone] Loretta Elizalde PA-C Unavailable +[phone] Олег Kaiser MD Unavailable + Loretta Elizalde PA-C Primary Care Provider [phone] Deven Schulte MD Unavailable [phone] Dong Craft MD Unavailable +[phone] Dong Craft MD Unavailable +[phone] Rickie Grazyna MIDDLE SCHOOL READING TEACHER Unavailable [phone] Marlene White CHW Unavailable +[phone] Mer Holguin [facility] Unavailable [phone] Marlene White CHW Unavailable +[phone] Raul Norris [facility] Unavailable [phone] Reason for Visit * Reason Onset Date Comments Diabetes Education 09/12/2022 Encounter Details Date Type Department Care Team (Late st Contact Info) Description 09/12/2022 Telephone [facility] [address] [place] [address] Loretta Elizalde PA-C [address] [place] [address] Diabetes Education Social History Tobacco Use Types [...] phone number to call to schedule. Dena Garner [facility] Scheduling * Telephone Encounter [...] Info) Description 03/19/2024 7:00 AM CDT Lab [facility] [address] [place] [address] 04/28/2024 7:30 AM TRAIN BRAKEMAN Office Visit [place] [id number] [place] [address] Loretta Elizalde PA-C [address] [place], [place] 94670[address] 09/09/2024 7:00 AM CDT Lab [facility] [address] [place] [address] 09/15/2024 8:30 AM CDT Virtual Visit [facility] [address] [place] [address] Dong Craft MD [address] [place] [address] documented as of this encounter Visit Diagnoses Not on filedocumented in this encounter Additional Health Concerns Assessment Noted Time PHQ-9 Depression Total Score: 2 09/12/19 7:51 AM CDT documented as of this encounter Care Teams Information Strategist Relationship Specialty Start Date End Date Johnie Farmer PCP - General Family Practice 01/30/18 09/24/22 Loretta Elizalde PA-C [address] [place] [address] PCP - General Family Medicine 09/25/22 Олег Kaiser MD [address] [place] [address] Urology 04/05/21 Deven Schulte MD [address] [place] [address] [id number] Assigned Surgical Provider 04/23/21 09/21/22 Loretta Elizalde PA-C [address] [place] [address] Assigned PCP 09/22/22 Олег Kaiser MD [address] [place] [address] Assigned Surgical Provider 09/22/22 09/28/22 Deven Schulte MD [address] [place] [address] Assigned Surgical Provider 09/29/22 10/19/22 Dong Craft MD [address] [place] [address] MD Hematology 10/09/22 Dong Craft MD [address] [place] [address], [address] [address] Assigned Cancer Care Provider 11/24/22 05/24/23 Grazyna Damian CNP [address] [place] [address] Assigned Cancer Care Provider 05/25/23 Marlene White, [facility] Community Health Worker Primary Care - CC 12/11/23 Mer Holguin, [facility] Lead Coffee Attendant Primary Care - CC 12/12/2312/15 Marlene White, [facility] Community Health Worker Primary Care - CC 12/16/23 Raul Norris LSW Clinic Coffee Attendant Primary Care - CC 12/16/23 documented as of this encounter
--- OUTSIDE RECORDS SUMMARY | 2024-03-16 07:11 | XMS_ITS | Encounter Summary ---
Author Organization [place] Address [address] [facility] [place] [place] [address] Care Team Providers Care Mining Speculator Name Role Phone Олег Kaiser MD Unavailable [phone] Loretta Elizalde PA-C Unavailable +[phone] Loretta Elizalde PA-C Primary Care Provider [phone] Dong Craft MD Unavailable +[phone] Dong Craft MD Unavailable [phone] Grazyna Damian CONSTRUCTION LINEMAN Unavailable [phone] Marlene White CHW Unavailable [phone] Mer Holguin MANAGER FARM Unavailable [phone] Marlene White CHW Unavailable Raul Norris MANAGER FARM Unavailable [phone] Encounter Details Date Type Department Care Team (Late st Contact Info) Description 03/25/2023 [facility] Medical Advice [facility] [address] [place] [address] Faith Cano Social History Tobacco [...] Info) Description 03/19/2024 7:00 AM CDT Lab [facility] [address] [place] [address] 04/28/2024 7:30 AM ANNUAL GREENHOUSE MANAGER Office Visit [facility] [address] [place] [address] Loretta Elizalde PA-C [address] [place] [address] 09/09/2024 7:00 AM CDT Lab [facility] [address] [place] [address] 09/15/2024 8:30 AM CDT Virtual Visit [facility] [address] [place] [address] Dong Craft MD [address] [place] [address] documented as of this encounter Visit Diagnoses Not on filedocumented in this encounter Additional Health Concerns Assessment Noted Time PHQ-9 Depression Total Score: 2 09/12/19 23 7:51 AM CDT documented as of this encounter Care Teams Mining Speculator Relationship Specialty Start Date End Date Loretta Elizalde PA-C [address] [place] [address] PCP - General Family Medicine 09/25/22 Олег Kaiser MD [address] [place] [address] Urology 04/05/21 Loretta Elizalde PA-C [address] [place] [address] Assigned PCP 09/22/22 Dong Craft MD [address] [facility] [place] [address] [facility] 10/09/22 Dong Craft MD [address], [address] [place] [address] Assigned Cancer Care Provider 11/24/22 05/24/23 Grazyna Damian CNP 420 [facility] [address] [place], [place] [address] Assigned Cancer Care Provider 05/25/23 Marlene White, [facility] Community Health Worker Primary Care - CC 12/11/23 Mer Holguin, [facility] Lead Cat Scan Technologist Primary Care - CC 12/12/2312/15 Marlene White, [facility] Community Health Worker Primary Care - CC 12/16/23 Raul Norris [facility] Clinic Cat Scan Technologist Primary Care - CC 12/16/23 documented as of this encounter
--- OUTSIDE RECORDS SUMMARY | 2024-03-16 07:11 | XMS_ITS | Encounter Summary ---
Author Organization [place] Address [address] [facility] [place] [address] Care Team Providers Care Sheriff Name Role Phone Clinic, [facility] Unavailable Jennifer Pond MD Primary Care Provider + [phone] [facility] [place] [address] [place] Primary Care Pro vider Dany Hirsch Primary Care Provider [phone] Johnie Farmer Primary Care Provider [phone] JobОлег bergeron MD Unavailable +[phone] Deven Schulte MD Unavailable [phone] Олег Kaiser MD Unavailable +[phone] Loretta Elizalde PA-C Unavailable [phone] Олег Kaiser MD Unavailable +[phone] Loretta Elizalde PA-C Primary Care Provider [phone] Deven Schulte MD Unavailable [phone] Dong Craft MD Unavailable [phone] Dong Craft MD Unavailable [phone] Grazyna Damian TIER TRUCK DRIVER Unavailable [phone] Marlene White CHW Unavailable [phone] Mer Holguin RUBBING BED OPERATOR Unavailable [phone] Marlene White CHW Unavailable Raul Norris RUBBING BED OPERATOR Unavailable [phone] Encounter Details Date Type Department Care Team (Late Contact Info) Description 06/16/2015 [facility] [address] [place] [phone] Ruth Leigh, HANDCREW FOREMAN Social History Tobacco Use Types Packs/Day Years [...] Info) Description 03/19/2024 7:00 AM CDT Lab [address] [address] 04/28/2024 7:30 AM ODD BUNDLE WORKER Office Visit [facility] [address] [place] [address] Loretta Elizalde PA-C [address] [place], [place] 38[address] 09/09/2024 7:00 AM CDT Lab [address] [address] 09/15/2024 8:30 AM CDT Virtual Visit [facility] [address] [place] [address] Dong Craft MD [address] [facility], [address] [place] [address] documented as of this encounter Visit Diagnoses Not on filedocumented in this encounter Additional Health Concerns Infection Onset Date Last Indicated Resolved Time Rule Out COVID-19 10/09/2019 10/09/2019 10/09/2019 9:36 PM CDT Rule Out COVID-19 11/20/2019 11/20/2019 11/21/2019 5:10 PM CDT Rule Out COVID-19 11/25/2019 11/25/2019 11/26/2019 4:41 PM CDT Rule Out COVID-19 04/18/2020 04/18/2020 04/18/2020 4:22 PM ODD BUNDLE WORKER COVID-19 04/18/2020 04/18/2020 05/09/2020 11:4 0 PM ODD BUNDLE WORKER documented as of this encounter Care Teams Sheriff Relationship Specialty Start Date End Date Jennifer Pond MD [address] [facility] [place] [address] PCP - General Internal Medicine 11/08/14 08/26/16 [facility] [address] [place] [address] PCP - General 08/27/16 10/26/16 Dany Hirsch [address] [place] [address] PCP - General Family Practice 10/27/16 01/29/18 Johnie Farmer [address] [place] [address] PCP - General Family Practice 01/30/18 09/24/22 Loretta Elizalde PA-C [address] [place] [address] PCP - General Family Medicine 09/25/[address] [address] 06/14/11 08/26/16 Олег Kaiser MD [address] [place], [place] 397065 Urology 04/05/21 Deven Schulte MD [address] [place] [address] 930975 Assigned Surgical Provider 04/23/21 09/21/22 Олег Kaiser MD [address] [place] [address] Assigned Surgical Provider 04/16/21 04/22/21 Loretta Elizalde PA-C [address] [place], [place] 2431068 Assigned PCP 09/22/22 Олег Kaiser MD [address] [place] [address] Assigned Surgical Provider 09/22/22 09/28/22 Deven Schulte MD [address] [place], [place] 666555 Assigned Surgical Provider 09/29/22 10/19/22 Dong Craft MD 909 [place] [address] Hematology 10/09/22 Dong Craft MD [address] [place] [address] Assigned Cancer Care Provider 11/24/22 05/24/23 Grazyna Damian, TIER TRUCK DRIVER [address] [address] Assigned Cancer Care Provider 05/25/23 Marlene White, W Community Health Worker Primary Care - CC 12/11/23 12/12/23 Mer Holguin, [facility] Lead Swinging Cut Off Saw Operator Primary Care - CC 12/12/2312/15 Marlene White, [facility] Community Health Worker Primary Care - CC 12/16/23 02/19/24 Raul Norris, [facility] Clinic Swinging Cut Off Saw Operator Primary Care - CC 12/16/23 02/19/24 documented as of this encounter
--- OUTSIDE RECORDS SUMMARY | 2024-03-16 07:11 | XMS_ITS | Encounter Summary ---
Author Organization [place] Address [address] [place] [address] Care Team Providers Care Cement Mason Apprentice Name Role Phone Олег Kaiser MD Unavailable [phone] Loretta Elizalde PA-C Unavailable +[phone] Loretta Elizalde PA-C Primary Care Provider [phone] Dong Craft MD Unavailable [phone] Dong Craft MD Unavailable [phone] Grazyna Damian FLORAL CLERK Unavailable [phone] Marlene White CHW Unavailable [phone] Mer Holguin INSURANCE SALESMAN Unavailable [phone] Marlene White CHW Unavailable Raul Norris INSURANCE SALESMAN Unavailable [phone] Encounter Details Date Type Department Care Team (Late st Contact Info) Description 04/19/2023 [facility] Medical Advice [facility] [address] [place] [address] Faith Cano Social History Tobacco [...] CDT Lab [facility] [address] [place] [address] 04/28/2024 7:30 AM MUSIC TYPOGRAPHER Office Visit [facility] [address] [place] [address] Loretta Elizalde PA-C [address] [place] [address] 09/09/2024 7:00 AM CDT Lab [facility] [address] [place] [address] 09/15/2024 8:30 AM CDT Virtual Visit [facility] [address] [place] [address] Dong Craft MD [address] [place] [address] documented as of this encounter Visit Diagnoses Not on filedocumented in this encounter Additional Health Concerns Assessment Noted Time PHQ-9 Depression Total Score: 2 09/12/19 23 7:51 AM CDT documented as of this encounter Care Teams Cement Mason Apprentice Relationship Specialty Start Date End Date Loretta Elizalde PA-C [address] [place] [address] PCP - General Family Medicine 09/25/22 Олег Kaiser MD [address] [place] [address] Urology 04/05/21 Loretta Elizalde PA-C [address] [place] [address] Assigned PCP 09/22/22 Dong Craft MD [address] [facility] [place] [address] [facility] 10/09/22 Dong Craft MD [address], [address] [place] [address] Assigned Cancer Care Provider 11/24/22 05/24/23 Grazyna Damian CNP 420 [facility] 480 [place], [place] [address] Assigned Cancer Care Provider 05/25/23 Marlene White, [facility] Community Health Worker Primary Care - CC 12/11/23 Mer Holguin, [facility] Lead Medical Reception Primary Care - CC 12/12/2312/15 Marlene White, [facility] Community Health Worker Primary Care - CC 12/16/23 Raul Norris [facility] Clinic Medical Reception Primary Care - CC 12/16/23 documented as of this encounter
--- OUTSIDE RECORDS SUMMARY | 2024-03-16 07:11 | XMS_ITS | Encounter Summary ---
Author Organization [place] Address [address] [facility] [place] [address] Care Team Providers Care Blower Blast Furnace Name Role Phone Олег Kaiser MD Unavailable [phone] Loretta Elizalde PA-C Unavailable [phone] Loretta Elizalde PA-C Primary Care Provider [phone] Dong Craft MD Unavailable [phone] Dong Craft MD Unavailable [phone] Grazyna Damian POLICE ACADEMY INSTRUCTOR Unavailable [phone] Marlene White CHW Unavailable Mer Holguin MECHANICAL DRAWING TEACHER Unavailable Marlene White CHW Unavailable Raul Norris MECHANICAL DRAWING TEACHER Unavailable [phone] Encounter Details Date Type Department Care Team (Late st Contact Info) Description 05/14/2023 [facility] [address] [place] [address] Mathew [place] Social History Tobacco Use Types Packs/Day Years [...] Lab [facility] [address] [place] [address] 04/28/2024 7:30 AM WEAVER HAND Office Visit [facility] [address] [place] [address] Loretta Elizalde PA-C [address] [place] [address] 09/09/2024 7:00 AM CDT Lab [facility] [address] [place] [address] 09/15/2024 8:30 AM CDT Virtual Visit [facility] [address] [place] [address] Dong Craft MD [address] [place] [address] documented as of this encounter Visit Diagnoses Not on filedocumented in this encounter Additional Health Concerns Assessment Noted Time PHQ-9 Depression Total Score: 2 09/12/19 23 7:51 AM CDT documented as of this encounter Care Teams Blower Blast Furnace Relationship Specialty Start Date End Date Loretta Elizalde PA-C [address] [place] [address] PCP - General Family Medicine 09/25/22 Олег Kaiser MD [address] [place] [address] Urology 04/05/21 Loretta Elizalde PA-C [address] [place] [address] Assigned PCP 09/22/22 Dong Craft MD 909 [place] [address] [facility] 10/09/22 Dong Craft MD [address], [address] [place] [address] Assigned Cancer Care Provider 11/24/22 05/24/23 Grazyna Damian CNP [address] [place] [address] [facility] [address] [place], [place] [address] Assigned Cancer Care Provider 05/25/23 Marlene White, [facility] Community Health Worker Primary Care - CC 12/11/23 Mer Holguin, [facility] Lead Integrated Logistics Operations Manager Primary Care - CC 12/12/2312/15 Marlene White, [facility] Community Health Worker Primary Care - CC 12/16/23 Raul Norris [facility] Clinic Integrated Logistics Operations Manager Primary Care - CC 12/16/23 documented as of this encounter
--- OUTSIDE RECORDS SUMMARY | 2024-03-16 07:11 | XMS_ITS | Encounter Summary ---
Author Organization [place] Address [address] [facility] [facility] [place] [address] Care Team Providers Care Customer Relations Assistant Name Role Phone Олег Kaiser MD Unavailable [phone] Loretta Elizalde PA-C Unavailable [phone] Loretta Elizalde PA-C Primary Care Provider [phone] Dong Craft MD Unavailable [phone] Grazyna Damian CNP Unavailable [phone] Marlene White [facility] Unavailable [phone] Reason for Referral * Care Coordination (Routine: Next available opening) - Pending Review Specialty Diagnoses / Procedures Referred By Lindy holcomb Referred To Contact Diagnoses Encounter for screening involving social determinants of health (SDoH) Loretta Elizalde PA-C [address] [place] [address] Referral ID Status Reason Start Date Expiration Date V isits Requested Visits Authorized [id number] Pending Review 12/11/2023 12/10/2024 1 1 Question Answer Reason for Referral: SDOH Concern Clinical Staff have discussed the Care Coordination Referral with the patient and/or caregiver: Yes Comments Reason for Visit * Reason Comments Physical Encounter Details Date Type Department Care Team ([facility] Contact Info) Description 12/11/2023 7:30 AM CDT Office Visit [facility] [address] [place] [address] Loretta Elizalde PA-C [address] [place] [address] Routine general medical examination at a health care facility (Primary Dx); Encounter for screening involving social determinants of health (SDoH); Gout of right knee, unspecified cause, unspecified chronicity; Moderate persistent asthma without complication; Hypertension goal BP (blood pressure) < 140/90; Type 2 diabetes mellitus with diabetic nephropathy, 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); Mild episode of recurrent major depressive disorder (H); Hyperlipidemia LDL goal <70; Obesity (BMI 30.0-34.9) Social History Tobacco Use [...] friends or re latives? Never 12/06/2023 Attends [employer] Services Not on file 12/05 Active Member of Clubs or Organizations Not on f ile 12/06/2023 Attends Club or Organization Meetings Not on rolando e 12/06/2023 Marital Status Not on file 12/06/2023 PHQ-2 Answer Date Recorded PHQ-2 Score 2 12/11/2023 [facility] [place] of Occupat ional Health - Occupational Stress [...] Sign Reading Time Taken Comments Blood Pressure 130/84 12/11/2023 7:33 AM CDT Pulse 86 12/11/2023 7:33 AM CDT Temperature 36.8 ??C (98.2 ??F) 12/11/2023 7:33 AM CD T Respiratory Rate 16 12/11/2023 7:33 AM CDT Oxygen Saturation 98% 12/11/2023 7:33 AM CDT Inhaled Oxygen Concentration - - Weight 105.5 kg (232 lb 9.6 oz) 12/11/2023 7:33 AM CDT Height 175.3 cm (5' 9) 12/11/2023 7:33 AM CDT Body Mass Index 34.35 12/11/2023 7:33 AM CDT documented in this encounter Patient Instructions * Patient Instructions* Loretta Elizalde PA-C - 12/11/2023 7:30 AM CDT Images from the original note were not included. Increase metformin to 2 tabs twice a day with meals Start ozempic For gout, we will start taking allopurinol daily Follow-up in 1-2 months for diabetes follow-up, gout follow-up Patient Education Preventive Care Advice This is general advice given by our system to help you stay healthy. However, your care team may have specific advice just for you. Please talk to your care team about your preventive care needs. Nutrition Eat 5 or more servings of fruits and vegetables each day. Try wheat bread, brown rice and whole grain pasta (instead of white bread, rice, and pasta). Get enough calcium and vitamin D. Check the label on foods and aim for 100% of the BOILERMAKER (recommendeddaily allowance). Lifestyle Exercise at least 150 minutes each week (30 minutes a day, 5 days a week). Do muscle strengthening activities 2 days a week. These help control your weight and prevent disease. No smoking. Wear sunscreen to prevent skin cancer. Have a dental exam and cleaning every 6 months. Yearly exams See your health care team every year to talk about: Any changes in your health. Any medicines your care team has prescribed. Preventive care, family planning, and ways to prevent chronic diseases. Shots (vaccines) HPV shots (up to age 26), if you've never had them before. Hepatitis B shots (up to age 59), if you've never had them before. COVID-19 shot: Get this shot when it's due. Flu shot: Get a flu shot every year. Tetanus shot: Get a tetanus shot every 10 years. Pneumococcal, hepatitis A, and RSV shots: Ask your care team if you need these based on your risk. Shingles shot (for age 50 and up) General health tests Diabetes screening: Starting at age 35, Get screened for diabetes at least every 3 years. If you are younger than age 35, ask your care team if you should be screened for diabetes. Cholesterol test: At age 39, start having a cholesterol test every 5 years, or more often if advised. Bone density scan (DEXA): At age 50, ask your care team if you should have this scan for osteoporosis (brittle bones). Hepatitis C: Get tested at least once in your life. STIs (sexually transmitted infections) Before age 24: Ask your care team if you should be screened for STIs. After age 24: Get screened for STIs if you're at risk. You are at risk for STIs (including HIV) if: You are sexually active with more than one person. You don't use condoms every time. You or a partner was diagnosed with a sexually transmitted infection. If you are at risk for HIV, ask about PrEP medicine to prevent HIV. Get tested for HIV at least once in your life, whether you are at risk for HIV or not. Cancer screening tests Cervical cancer screening: If you have a cervix, begin getting regular cervical cancer screening tests starting at age 21. Breast cancer scan (mammogram): If you've ever had breasts, begin having regular mammograms starting at age 40. This is a scan to check for breast cancer. Colon cancer screening: It is important to start screening for colon cancer at age 45. Have a colonoscopy test every 10 years (or more often if you're at risk) Or, ask your provider about stool tests like a FIT test every year or Cologuard test every 3 years. To learn more about your testing options, visit: . For help making a decision, visit: https://bit.ly/wr63742. Prostate cancer screening test: If you have a prostate, ask your care team if a prostate cancer screening test (PSA) at age 55 is right for you. Lung cancer screening: If you are a current or former smoker ages 50 to 80, ask your care team if ongoing lung cancer screenings are right for you. For informational purposes only. Not to replace the advice of your health care provider. Copyright ?? 2022 [employer]. All rights reserved. Clinically reviewed by the [facility]. [employer] 485858 - REV 06/19. Relationships for Good Health Relationships are important for our health and happiness. Social isolation, loneliness and lack of support are bad for your health. Studies show that loneliness can harm health and limit your life span as much as high blood pressure and smoking. Take some time to reflect on your relationships. Then answer these questions: Are there people in your life that cause you stress or drain your energy? What can you do to set limits? Who do you enjoy spending time with? Who can you go to for support? What can you do to improve your relationships with others? What do you like most about your relationships with others? My goal: I will For informational purposes only. Not to replace the advice of your health care provider. Copyright ?? 2018 [facility]. All rights reserved. Clinically reviewed by [facility] [employer]. [employer] 565191 - Rev 09/14. Learning About Stress What is stress? Stress is your body's response to a hard situation. Your body can have a physical, emotional, or mental response. Stress is a fact of life for most people, and it affects everyone differently. What causes stress for you may not be stressful for someone else. A lot of things can cause stress. You may feel stress when you go on a job interview, take a test, or run a race. This kind of short-term stress is normal and even useful. It can help you if you needto work hard or react quickly. For example, stress can help you finish an important job on time. Long-term stress is caused by ongoing stressful situations or events. Examples of long-term stress include long-term health problems, ongoing problems at work, or conflicts in your family. Long-term stress can harm your health. How does stress affect your health? When you are stressed, your body responds as though you are in danger. It makes hormones that speedup your heart, make you breathe faster, and give you a burst of energy. This is called the iadlc-si-vixtit stress response. If the stress is over quickly, your body goes back to normal and no harm isdone. But if stress happens too often or lasts too long, it can have bad effects. Long-term stress can make you more likely to get sick, and it can make symptoms of some diseases worse. If you tense up when you are stressed, you may develop neck, shoulder, or low back pain. Stress is linked to high bloodpressure and heart disease. Stress also harms your emotional health. It can make you kennedy, tense, or depressed. Your relationships may suffer, and you may not do well at work or school. What can you do to manage stress? You can try these things to help manage stress: Do something active. Exercise or activity can help reduce stress. Walking is a great way to get started. Even everyday activities such as housecleaning or yard work can help. Try yoga or mendoza chi. These techniques combine exercise and meditation. You may need some training at first to learn them. Do something you enjoy. For example, listen to music or go to a movie. Practice your hobby or do volunteer work. Meditate. This can help you relax, because you are not worrying about what happened before or what may happen in the future. Do guided imagery. Imagine yourself in any setting that helps you feel calm. You can use online videos, books, or a teacher to guide you. Do breathing exercises. For example: From a standing position, bend forward from the waist with your knees slightly bent. Let your arms dangle close to the floor. Breathe in slowly and deeply as you return to a standing position. Roll up slowly and lift your head last. Hold your breath for just a few seconds in the standing position. Breathe out slowly and bend forward from the waist. Let your feelings out. Talk, laugh, cry, and express anger when you need to. Talking with supportive friends or family, a counselor, or a ivanna leader about your feelings is a healthy way to relieve stress. Avoid discussing your feelings with people who make you feel worse. Write. It may help to write about things that are bothering you. This helps you find out how much stress you feel and what is causing it. When you know this, you can find better ways to cope. What can you do to prevent stress? You might try some of these things to help prevent stress: Manage your time. This helps you find time to do the things you want and need to do. Get enough sleep. Your body recovers from the stresses of the day while you are sleeping. Get support. Your family, friends, and community can make a difference in how you experience stress. Limit your news feed. Avoid or limit time on social media or news that may make you feel stressed. Do something active. Exercise or activity can help reduce stress. Walking is a great way to get started. Where can you learn more? Go to https://www.[employer].net/patiented Enter N032 in the search box to learn more about Learning About Stress. Current as of: March 19, 2023 Content Version: 14.0 ?? [employer]. Care instructions adapted under license by your healthcare professional. If you have questions about a medical condition or this instruction, always ask your healthcare professional. [employer] disclaims any warranty or liability for your use of this information. Substance Use Disorder: Care Instructions Overview You can improve your life and health by stopping your use of alcohol or drugs. When you don't drinkor use drugs, you may feel and sleep better. You may get along better with your family, friends, and coworkers. There are medicines and programs that can help with substance use disorder. How can you care for yourself at home? Here are some ways to help you stay sober and prevent relapse. If you have been given medicine to help keep you sober or reduce your cravings, be sure to take it exactly as prescribed. Talk to your doctor about programs that can help you stop using drugs or drinking alcohol. Do not keep alcohol or drugs in your home. Plan ahead. Think about what you'll say if other people ask you to drink or use drugs. Try not to spend time with people who drink or use drugs. Use the time and money spent on drinking or drugs to do something that's important to you. Preventing a relapse Have a plan to deal with relapse. Learn to recognize changes in your thinking that lead you to drink or use drugs. Get help before you start to drink or use drugs again. Try to stay away from situations, friends, or places that may lead you to drink or use drugs. If you feel the need to drink alcohol or use drugs again, seek help right away. Call a trusted friend or family member. Some people get support from organizations such as Narcotics Anonymous or [employer] or from treatment facilities. If you relapse, get help as soon as you can. Some people make a plan with another person that outlines what they want that person to do for them if they relapse. The plan usually includes how to handle the relapse and who to notify in case of relapse. Don't give up. Remember that a relapse doesn't mean that you have failed. Use the experience to learn the triggers that lead you to drink or use drugs. Then quit again. Recovery is a lifelong process. Many people have several relapses before they are able to quit for good. Follow-up care is a augustine part of your treatment and safety. Be sure to make and go to all appointments, and call your doctor if you are having problems. It's also a good idea to know your test resultsand keep a list of the medicines you take. When should you call for help? Call 911 anytime you think you may need emergency care. For example, call if you or someone else: Has overdosed or has withdrawal signs. Be sure to tell the emergency workers that you are or someone else is using or trying to quit using drugs. Overdose or withdrawal signs may include: Losing consciousness. Seizure. Seeing or hearing things that aren't there (hallucinations). Is thinking or talking about suicide or harming others. Where to get help 24 hours a day, 7 days a week If you or someone you know talks about suicide, self-harm, a mental health crisis, a substance use crisis, or any other kind of emotional distress, get help right away. You can: Call the Suicide and Crisis Lifeline at 988. Call 6-034-386-TALK ( ). Text HOME to 090808 to access the Crisis Text Line. Consider saving these numbers in your phone. Go to [employer]Task for more information or to chat online. Call your doctor now or seek immediate medical care if: You are having withdrawal symptoms. These may include nausea or vomiting, sweating, shakiness, and anxiety. Watch closely for changes in your health, and be sure to contact your doctor if: You have a relapse. You need more help or support to stop. Where can you learn more? Go to https://www.healthwise.net/patiented Enter H573 in the search box to learn more about Substance Use Disorder: Care Instructions. Current as of: April 10, 2023 Content Version: 14.0 ?? [employer]. Care instructions adapted under license by your healthcare professional. If you have questions about a medical condition or this instruction, always ask your healthcare professional. [employer] disclaims any warranty or liability for your use of this information. * Attachments The following attachments cannot be sent through Care Everywhere. * Gout (Dutch) * Allopurinol Oral Tablet (ALLOPURINOL - ORAL) (Dutch) * Semaglutide Pen Injector (SEMAGLUTIDE (DIABETES) - INJECTION) (Dutch) documented in this encounter Progress Notes * Loretta Elizalde PA-C - 12/11/2023 7:30 AM CDT Preventive Care [facility] Elizalde PA-C, Family Medicine Dec 11, 2023 Assessment & Plan Routine general medical examination at a health care facility Encounter for screening involving social determinants of health (SDoH) Housing/financial concern. Has been staying with a friend but needs to be out by the end of the month. He has been looking into shelters, not sure what he's going to do. Discussed care coordination referral and he is agreeable. - Primary Care - Care Coordination Referral; Future Gout of right knee, unspecified cause, unspecified chronicity Recurrent issue over several years. Will initiate allopurinol and colchicine for prophylaxis duringinitiation of urate lowering therapy. Follow-up in 6-8 weeks for repeat uric acid level and recheck. - Uric acid; Future - allopurinol (ZYLOPRIM) 100 MG tablet; Take 1 tablet (100 mg) by mouth daily - Uric acid - colchicine (COLCRYS) 0.6 MG tablet; Take 1 tablet (0.6 mg) by mouth daily Moderate persistent asthma without complication Controlled, continue present mangement - fluticasone-vilanterol (BREO ELLIPTA) 200-25 MCG/ACT inhaler; Inhale 1 puff into the lungs daily Hypertension goal BP (blood pressure) < 140/90 Controlled, continue present management - olmesartan (BENICAR) 40 MG tablet; Take 1 tablet (40 mg) by mouth daily - amLODIPine (NORVASC) 5 MG tablet; Take 1 tablet (5 mg) by mouth daily Type 2 diabetes mellitus with diabetic nephropathy, 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) Uncontrolled. Titrate metformin to 1000 mg BID, start ozempic. Discussed medication r/b/se. He doesnot have any contraindications. Follow-up in 6-8 weeks for recheck. - FOOT EXAM - semaglutide (OZEMPIC) 2 MG/3ML pen; Inject 0.25 mg subcutaneously once a week for 4 weeks, THEN increase to 0.5 mg once a week - metFORMIN (GLUCOPHAGE XR) 500 MG 24 hr tablet; Take 2 tablets (1,000 mg) by mouth 2 times daily (with meals) 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) Doing well, continue - FLUoxetine (PROZAC) 20 MG capsule; Take 1 capsule (20 mg) by mouth daily Hyperlipidemia LDL goal <70 Doing well, continue - rosuvastatin (CRESTOR) 20 MG tablet; Take 1 tablet (20 mg) by mouth daily Obesity (BMI 30.0-34.9) BMI Estimated body mass index is 34.35 kg/m?? as calculated from the following: Height as of this encounter: 1.753 m (5' 9). Weight as of this encounter: 105.5 kg (232 lb 9.6 oz). Weight management plan: Discussed healthy diet and exercise guidelines Counseling Appropriate preventive services were discussed with this patient. Checklist reviewing preventive services available has been given to the patient. Ion Johnson is a 48 year old, presenting for the following: Physical 12/11/2023 7:32 AM Additional Questions Roomed by Jo Diana LPN Health Care Directive Patient does not have a Health Care Directive or Living Will: Discussed advance care planning with patient; however, patient declined at this time. HPI Gout Recurent gout in right knee over last several years Saw ortho through [facility] 11/07/23 Had steroid injection and knee aspiration - was told aspiration showed gout He has flares of right knee gout a few times per year Ortho recommended talking to PCP about urate lowering therapy Knee is feeling better now Trying to make healthy lifestyle changes Eating healthier Cut out soda, fast food Increased exercise - walking 3-5 miles a day, 4-5 days per week Depression - restarted fluoxetine about 1 month ago, currently taking 20 mg daily Mood has improved Denies concerns with anxiety Tolerating medication well No side effects or concerns Would like to continue with medication 09/11/2022 7:47 AM 11/06/2023 3:16 PM 12/11/2023 7:08 AM PHQ PHQ-9 Total Score 2 7 3 Q9: Thoughts of better off /self-harm past 2 weeks Not at all Not at all Not at all Asthma Restarted breo ellipta 1 month ago Feels like asthma has improved since restarting maintenance inhaler and albuterol PRN Not needing albuterol anymore since starting breo 09/11/2022 7:00 AM 11/21/2023 5:44 PM 12/06/2023 [...] because of your asthma? 0 0 0 T2DM - uncontrolled; A1c high at 10.0 when checked 1 week ago. He had not been taking metformin consistently for a while but restarted about 1 month ago. He has had CGM for the past month - he has worn for 11 days out of the last 30 days Taking 2 metformin in morning and 1 metformin in evening He would be open to starting ozempic No personal or family history of medullary thyroid carcinoma (MTC) or Multiple Endocrine Neoplasia syndrome type 2 (MEN, type 2). No history of pancreatitis. Lab Results Component Value Date A1C 10.0 12/04/2023 A1C 8.9 09/11/2022 A1C 10.3 04/07/2021 A1C 10.9 04/18/2020 A1C 7.2 06/23/2019 A1C 8.7 01/07/2019 A1C 7.6 01/30/2018 A1C 8.4 08/29/2017 Hyperlipidemia Restarted rosuvastatin about 1 month ago - taking 20 mg daily Tolerating medication well He had lipids checked 1 week ago LDL Cholesterol Calculated Date Value Ref Range Status 12/04/2023 49 <=100 mg/dL Final 09/22/2013 122 <130 mg/dL (calc) Final Comment: Desirable range <100 mg/dL for patients with CHD or diabetes and <70 mg/dL for diabetic patients with known heart disease. Hypertension Was off of BP meds for a while but restarted olmesartan 20 mg and amlodipine 5 mg daily about 1 month ago Increased olmesartan to 40 mg daily a few weeks ago Doing well with medications - no side effects or concerns He does not check BP at home No chest pain, shortness of breath, swelling in the extremities, palpitations, dizziness, headaches, blurred vision. 12/06/2023 General Health How would you rate your overall physical health? (!) POOR Feel stress (tense, anxious, or unable to sleep) Very much (!) STRESS CONCERN 12/06/2023 Nutrition Three or more servings of calcium each day? (!) NO Diet: Diabetic How many servings of fruit and vegetables per day? (!) 2-3 How many sweetened beverages each day? 0-1 12/06/2023 Exercise Days per week of moderate/strenous exercise 4 days Average minutes spent exercising at this level 70 min 12/06/2023 Social Factors Frequency of gathering with friends or relatives Never Worry food won't last until get money to buy more No Food not last or not have enough money for food? No Do you have housing? (Housing is defined as stable permanent housing and does not include staying ouside in a car, in a tent, in an abandoned building, in an overnight senior living, or couch-surfing.) No Are you worried about losing your housing? Patient declined Lack of transportation? No Unable to get utilities (heat,electricity)? No Want help with housing or utility concern? (!) YES (!) HOUSING CONCERN PRESENT(!) SOCIAL CONNECTIONS CONCERN Has been staying with a friend for a few weeks but needs to find a new place in the next few weeks Trying to save up money 12/06/2023 Dental Dentist two times every year? (!) NO 12/06/2023 TB Screening Were you born outside of the [place]? No Today's PHQ-9 Score: 12/11/2023 7:08 AM PHQ-9 SCORE PHQ-9 Total Score MyChart 3 (Minimal depression) PHQ-9 Total Score 3 12/06/2023 Substance Use Alcohol more than 3/day or more than 7/wk No Do you use any other substances recreationally? (!) ALCOHOL Social History Tobacco Use Smoking status: Never Smokeless tobacco: Never Vaping Use Vaping status: Never Used Substance Use Topics Alcohol use: Yes Alcohol/week: 4.0 standard drinks of alcohol Types: 4 Standard drinks or equivalent per week Comment: usually 2 drinks/day, 2 days/week Drug use: No 12/06/2023 STI Screening New sexual partner(s) since last STI/HIV test? No ASCVD Risk Security Inspector The ASCVD Risk score (Daniel DK, et al., 2019) failed to calculate for the following reasons: The valid total cholesterol range is 130 to 320 mg/dL 12/06/2023 Contraception/Family Planning Questions about contraception or family planning No Reviewed and updated as needed this visit by Provider Tobacco Allergies Meds Problems Med Hx Surg Hx Fam Hx Past Medical History: Diagnosis Date Alcohol abuse [...] (EGD), combined; Surgeon: Jimmy Jiang MD; Location: GI EXCISE LESION TRUNK 07/16/2011 Procedure:EXCISE LESION [...] MD; Location: [facility] OR LAPAROSCOPIC GASTRIC BYPASS 2006 LITHOTRIPSY ROTATOR CUFF REPAIR RT/LT Left Lab work is in process Labs reviewed in [facility] BP Readings from Last 3 Encounters: 12/11/23 130/84 11/22/23 (!) 148/94 05/14/23 (!) 153/95 Wt Readings from Last 3 Encounters: 12/11/23 105.5 kg (232 lb 9.6 oz) 11/22/23 105.5 kg (232 lb 8 oz) 05/14/23 99.3 kg (219 lb) Patient Active Problem List Diagnosis Gout of right knee, unspecified cause, unspecified chronicity Vitamin D deficiency Moderate persistent asthma Hypertension goal BP (blood pressure) < 140/90 Type 2 diabetes mellitus with diabetic nephropathy, 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% Hyperlipidemia LDL goal <70 S/P gastric bypass Recurrent major depressive disorder, in partial remission (H24) Family history of early CAD B12 deficiency Iron deficiency anemia, unspecified iron deficiency anemia type Upper GI bleed History of Jarrett-en-Y gastric bypass Past Surgical History: Procedure Laterality Date ABDOMEN SURGERY COLONOSCOPY N/A 10/30/2017 Procedure: COLONOSCOPY; colonoscopy with NO SEDATION; INCOMPLETE due to poor prep; Surgeon: Сергей Ge MD; Location: GI COLONOSCOPY N/A 12/11/2017 Procedure: COLONOSCOPY; Colonoscopy ; Surgeon: Срегей Ge MD; Location: GI COLONOSCOPY N/A 10/03/2022 Procedure: Colonoscopy; Surgeon: Jimmy Jiang MD; Location: GI COMBINED CYSTOSCOPY, RETROGRADES, URETEROSCOPY, LASER HOLMIUM LITHOTRIPSY URETER(S), INSERT STENT Right 04/08/2021 Procedure: 1. Cystourethroscopy 2. Right ureteroscopy 3. Right retrograde pyelogram with interpretation of intraoperative fluoroscopic imaging 4. Thulium Fiber laser lithotripsy with basket stone extraction 5. Right ureteral stent placement; Surgeon: Олег Kaiser MD; Location: [facility] OR ESOPHAGOSCOPY, GASTROSCOPY, DUODENOSCOPY (EGD), COMBINED N/A [...] MD; Location: [facility] OR LAPAROSCOPIC GASTRIC BYPASS 2006 LITHOTRIPSY ROTATOR CUFF REPAIR RT/LT Left Social History Tobacco Use Smoking status: Never Smokeless tobacco: Never Substance Use Topics [...] of Prostate Cancer No family hx of Current Outpatient Medications Medication Sig Dispense Refill albuterol (PROAIR HFA/PROVENTIL HFA/VENTOLIN HFA) 108 (90 Base) MCG/ACT inhaler Inhale 1-2 puffs into the lungs every 4 hours as needed for shortness of breath or wheezing 18 g 5 allopurinol (ZYLOPRIM) 100 MG tablet Take 1 tablet (100 mg) by mouth daily 90 tablet 1 amLODIPine (NORVASC) 5 MG tablet Take 1 tablet (5 mg) by mouth daily 90 tablet 3 colchicine (COLCRYS) 0.6 MG tablet Take 1 tablet (0.6 mg) by mouth daily 90 tablet 0 Continuous Glucose Sensor (FREESTYLE SHIRLENE 3 SENSOR) MIS 1 each every 14 days Use 1 sensor every 14 days. Use to read blood sugars per pot operator's instructions. 6 each 5 FLUoxetine (PROZAC) 20 [...] mg) by mouth daily 90 tablet 3 semaglutide (OZEMPIC) 2 MG/3ML pen Inject 0.25 mg subcutaneously once a week for 4 weeks, THEN increase to 0.5 mg once a week 3 mL 1 Allergies Allergen Reactions Nsaids Gastric Bypass Recent Labs Lab Test 12/04/23 0714 10/04/22 0602 10/03/22 0607 10/02/22 0625 10/01/22 1029 09/25/22 1540 09/11/22 0848 04/08/21 1701 04/07/21 2350 04/19/20 0615 04/18/20 0943 A1C 10.0* -- -- -- -- -- 8.9* -- 10.3* -- 10.9* LDL 49 -- -- -- -- -- 135* -- -- -- -- HDL 42 -- -- -- -- -- 52 -- -- -- -- TRIG 163* -- -- -- -- -- 159* -- -- -- -- ALT 30 -- -- 20 17 -- 21 < > -- 19 21 CR 0.94 1.02 < > 1.04 0.92 < > 0.96 < > 1.00 0.89 1.14 GFRESTIMATED >90 >90 < > 89 >90 < > >90 < > 89 >90 77 GFRESTBLACK -- -- -- -- -- -- -- -- -- >90 89 POTASSIUM 5.0 3.5 < > 4.0 3.4 < > 4.7 < > 4.4 4.2 4.8 < > = values in this interval not displayed. Review of Systems Constitutional, neuro, ENT, endocrine, pulmonary, cardiac, gastrointestinal, genitourinary, musculoskeletal, integument and psychiatric systems are negative, except as otherwise noted. Objective Exam BP 130/84 Pulse 86 Temp 98.2 ??F (36.8 ??C) (Oral) Resp 16 Ht 1.753 m (5' 9) Wt 105.5 kg(232 lb 9.6 oz) SpO2 98% BMI 34.35 kg/m?? Estimated body mass index is 34.35 kg/m?? as calculated from the following: Height as of this encounter: 1.753 m (5' 9). Weight as of this encounter: 105.5 kg (232 lb 9.6 oz). Physical Exam GENERAL: alert and no distress [...] normal PSYCH: mentation appears normal, affect normal/bright Diabetic foot exam: normal DP and PT pulses, no trophic changes or ulcerative lesions, normal sensory exam, and normal monofilament exam Signed Electronically by: Loretta Elizalde PA-C Answers submitted by the patient for this visit: Patient Health Questionnaire (Submitted on 12/11/2023) If you checked off any problems, how difficult have these problems made it for you to do your work,take care of things at home, or get along with other people?: Not difficult at all PHQ9 TOTAL SCORE: 3 documented in this encounter Plan of Treatment Upcoming Encounters Date Type Department Care Team (Late st Contact Info) Description 03/19/2024 7:00 AM CDT Lab [facility] [address] [place] [address] 04/28/2024 7:30 AM CLERICAL SUPERVISOR Office Visit [facility] [address] [place] [address] Loretta Elizalde PA-C [address] [place] [address] 09/09/2024 7:00 AM CDT Lab [facility] [address] [place] [address] 09/15/2024 8:30 AM CDT Virtual Visit [facility] [address] [place] [address] Dong Craft MD [facility] [address], [address] [address] Scheduled Referrals Name Type Priority Associated Diagnoses Orde r Schedule Primary Care - Care Coordination Referral Referral Routine: Next available opening Encounter for screening involving social determinants of health (SDoH) Expected: 12/11/2023 (Approximate), Expires: 12/10/2024 documented as of this encounter Goals Goal [...] my appointments. documented as of this encounter Procedures Procedure Name Priority Date/Time Associated Diagnosis Comments URIC ACID Routine 12/11/2023 8:42 AM CDT Gout of right knee, unspecified cause, unspecified chronicity documented in this encounter Results * (ABNORMAL) Uric acid (12/11/2023 8:42 AM CDT) Uric Acid 7.7(H) 3.4 - 7.0 mg/dL 12/11/2023 7:46 PM CDT [facility] Blood BLOOD SPECIMEN / Unknown Venipuncture / Unknown 12/11/2023 8:42 AM CDT 12/11/2023 8:42 AM CDT Loretta Elizalde PA-C LAB - BLOOD ORDERAB LES [facility] [address] [facility], Room [address] [place] [address] documented in this encounter Visit Diagnoses Diagnosis Routine general medical examination at a health care facility- Primary Encounter for screening involving social determinants of health (SDoH) Gout of right knee, unspecified cause, unspecified chronicity Moderate persistent asthma without complication Unspecified asthma Hypertension goal BP (blood pressure) < 140/90 Unspecified essential hypertension Type 2 diabetes mellitus with diabetic nephropathy, 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) Mild episode of recurrent major depressive disorder (H) Hyperlipidemia LDL goal <70 Other and unspecified hyperlipidemia Obesity (BMI 30.0-34.9) Obesity, unspecified documented in this encounter Additional Health Concerns Assessment Noted Time PHQ-9 Depression Total Score: 3 12/11/19 24 7:08 AM CDT documented as of this encounter Care Teams Customer Relations Assistant Relationship Specialty Start Date End Date Loretta Elizalde PA-C [address] [place] [address] PCP - General Family Medicine 09/25/22 Олег Kaiser MD [address] [place] [address] Urology 04/05/21 Loretta Elizalde, PAJennyC [address] [place] [address] Assigned PCP 09/22/22 Dong Craft MD [address] [place] [address] Hematology 10/09/22 Grazyna Damian CNP [address] [place] [address] [address] [place] [address] Assigned Cancer Care Provider 05/25/23 Marlene White, CHW Community Health Worker Primary Care - CC 12/11/23 documented as of this encounter
--- OUTSIDE RECORDS SUMMARY | 2024-03-16 07:11 | XMS_ITS | Encounter Summary ---
Author Organization [place] Address [address] [place] [address] Care Team Providers Care Dairy Science Teacher Name Role Phone JobлОег MD Unavailable [phone] Loretta Elizadle PA-C Unavailable [phone] Loretta Elizalde PA-C Primary Care Provider [phone] Dong Craft MD Unavailable Grazyna Damian CNP Unavailable [phone] Marlene White CHW Unavailable [phone] Mer Holguin SECONDARY CONNECTOR ARMATURE Unavailable [phone] Marlene White CHW Unavailable Raul Norris SECONDARY CONNECTOR ARMATURE Unavailable [phone] Encounter Details Date Type Department Care Team (Late st Contact Info) Description 11/19/2023 [facility] 3rd Flr [address] [place] [address] Pascual Caban Social History Tobacco Use Types Packs/Day Years Used Date Smoking Tobacco: Never Smokeless Tobacco: Never Alcohol Use Standard Drinks/Week Comments Yes 3 (1 standard drink = 0.6 oz pur e alcohol) rare PHQ-2 Answer Date Recorded PHQ-2 Score 4 11/06/2023 Adolescent Education Answer Date Record ed Getting School Help Needed Not on file 02/16 Interpersonal Safety Answer Date Record ed Do [...] Upcoming Encounters Date Type Department Care Team ([facility] st Contact Info) Description 03/19/2024 7:00 AM CDT Lab [facility] [address] [place] [address] 04/28/2024 7:30 AM TOLL TICKET CLERK Office Visit [facility] [address] [place] [address] Loretta Elizalde PA-C [address] [place] [address] 09/09/2024 7:00 AM CDT Lab [facility] [address] [place] [address] 09/15/2024 8:30 AM CDT Virtual Visit [facility] [address] [place] [address] [facility] [address], [address] [address] documented as of this encounter Goals Goal [...] documented as of this encounter Care Teams Dairy Science Teacher Relationship Specialty Start Date End Date Loretta Elizalde PA-C [address] [place] [address] PCP - General Family Medicine 09/25/22 Олег Kaiser MD [address] [place] [address] [id number] Urology 04/05/21 Loretta Elizalde PA-C [address] [place] [address] Assigned PCP 09/22/22 Dong Craft MD [address] [place], [place] [address] Hematology 10/09/22 Grazyna Damian CNP [address] [place] [address] [id number] Assigned Cancer Care Provider 05/25/23 Marlene White, [facility] Community Health Worker Primary Care - CC 12/11/23 Mer Holguin, [facility] Lead Director Public Policy Primary Care - CC 12/12/2312/15 Marlene White, [facility] Community Health Worker Primary Care - CC 12/16/23 Raul Norris LSW Clinic Director Public Policy Primary Care - CC 12/16/23 documented as of this encounter
--- OUTSIDE RECORDS SUMMARY | 2024-03-16 07:11 | XMS_ITS | Encounter Summary ---
Author Organization [place] Address [address] [facility] [place] [address] Care Team Providers Care Finance Mgr Name Role Phone Marleny, Johnie Wood Primary Care Provider [phone] Олег Kaiser MD Unavailable + Deven Schulte MD Unavailable [phone] Олег Kaiser MD Unavailable + Loretta Elizalde PA-C Unavailable [phone] Олег Kaiser MD Unavailable + Loretta Elizalde PA-C Primary Care Provider [phone] Deven Schulte MD Unavailable [phone] Dong Craft MD Unavailable [phone] Dong Craft MD Unavailable [phone] Grazyna Damian COMPUTER SCIENCES PROFESSOR Unavailable [phone] Marlene White CHW Unavailable [phone] Mer Holguin COMPOSITE LAMINATOR Unavailable [phone] Marlene White CHW Unavailable [phone] Raul Norris COMPOSITE LAMINATOR Unavailable [phone] Reason for Visit * Reason Onset Date Comments Appointment 04/11/2021 stent removal Encounter Details Date Type Department Care Team (Late st Contact Info) Description 04/11/2021 Telephone [facility] Clinic [address] [place] [phone] Олег Kaiser MD [address] [place] [address] Appointment (stent removal ) Social History Tobacco [...] COVID-19? No / Unsure 04/07/2021 11:09 PM EDUCATION ADMINISTRATOR documented as of this encounter Miscellaneous Notes * Telephone Encounter - Araceli Degroot - 04/11/2021 12:32 PM CST [facility] Phone Message May a detailed message be left on voicemail: yes Reason for Call: Other: . pt is calling to schedule his stent removal, he had a procedure with 04/08/2021, please call Alex to schedule, thank you Action Taken: Message routed to: Other: uro Travel Screening: Not Applicable ATION ADMINISTRATOR documented in this encounter Plan of Treatment Upcoming Encounters Date Type Department Care Team (Late st Contact Info) Description 03/19/2024 7:00 AM CDT Lab [facility] [address] [place] [phone] 04/28/2024 7:30 AM EDUCATION ADMINISTRATOR Office Visit [facility] [address] [place] [address] Loretta Elizalde, PARuben [address] [place] [address] 09/09/2024 7:00 AM CDT Lab [facility] [address] [place] [address] 09/15/2024 8:30 AM CDT Virtual Visit [facility] [address] [place] [phone] Dong Craft MD [facility] [facility], [address] [place] [address] documented as of this encounter Visit Diagnoses Not on filedocumented in this encounter Care Teams Finance Mgr Relationship Specialty Start Date End Date Johnie Farmer PCP - General Family Practice 01/30/18 09/24/22 Loretta Elizalde PA-C [address] [place] [address] PCP - General Family Medicine 09/25/22 Олег Kaiser MD [address] [place] [address] Urology 04/05/21 Deven Schulte MD [address] [place] [address] Assigned Surgical Provider 04/23/21 09/21/22 Олег Kaiser MD [address] [place] [address] Assigned Surgical Provider 04/16/21 04/22/21 Loretta Elizalde PA-C [address] [place] [address] Assigned PCP 09/22/22 Олег Kaiser MD [address] [place], [place] 02[address] Assigned Surgical Provider 09/22/22 09/28/22 Deven Schulte MD [address] [place] [address] 986925 Assigned Surgical Provider 09/29/22 10/19/22 Dong Craft MD [address] [place] [id number] MD Dalia 10/09/22 Dong Craft MD [address] [place] [address], [address] [address] Assigned Cancer Care Provider 11/24/22 05/24/23 Grazyna Damian CNP [address] [facility] [address] [place], [place] [address] Assigned Cancer Care Provider 05/25/23 Marlene White, [facility] Community Health Worker Primary Care - CC 12/11/23 Mer Holguin, [facility] Lead Cement Mason Helper Primary Care - CC 12/12/2312/15 Marlene White, [facility] Community Health Worker Primary Care - CC 12/16/23 Raul Norris COMPOSITE LAMINATOR Clinic Cement Mason Helper Primary Care - CC 12/16/23 documented as of this encounter
--- OUTSIDE RECORDS SUMMARY | 2024-03-16 07:11 | XMS_ITS | Encounter Summary ---
Author Organization [place] Address [address] [facility] [place] [address] Care Team Providers Care Fine Craft Artist Name Role Phone Олег Kaiser MD Unavailable [phone] Loretta Elizalde PA-C Unavailable [phone] Loretta Elizalde PA-C Primary Care Provider [phone] Dong Craft MD Unavailable [phone] Dong Craft MD Unavailable [phone] Grazyna Damian TELECOM COORDINATOR Unavailable [phone] Marlene White CHW Unavailable Mer Holguin HEEL SANDER Unavailable [phone] Marlene White CHW Unavailable Raul Norris HEEL SANDER Unavailable [phone] Encounter Details Date Type Department Care Team (Late st Contact Info) Description 02/01/2023 [facility] Medical Advice [address] [address] Bhavik Coelho MA Social History Tobacco [...] Info) Description 03/19/2024 7:00 AM CDT Lab [facility] [address] [place] [address] 04/28/2024 7:30 AM CLINICAL ANALYST Office Visit [facility] [address] [place] [address] Loretta Elizalde PA-C [address] [place] [address] 09/09/2024 7:00 AM CDT Lab [facility] [address] [place] [address] 09/15/2024 8:30 AM CDT Virtual Visit [facility] [address] [place] [phone] Dong Craft MD [address] [place] [address], [address] [address] documented as of this encounter Visit Diagnoses Not on filedocumented in this encounter Additional Health Concerns Assessment Noted Time PHQ-9 Depression Total Score: 2 09/12/19 23 7:51 AM CDT documented as of this encounter Care Teams Fine Craft Artist Relationship Specialty Start Date End Date Loretta Elizalde PA-C [address] [place] [address] PCP - General Family Medicine 09/25/22 Олег Kaiser MD [address] [place] [address] Urology 04/05/21 Loretta Elizalde PA-C [address] [place] [address] Assigned PCP 09/22/22 Dong Craft MD [address] [facility] [place] [address] MD Dalia 10/09/22 Dong Craft MD [address] [facility] [address] [place] [address] Assigned Cancer Care Provider 11/24/22 05/24/23 Grazyna Damian CNP [address] [place] [address] [facility] [address] [place], [place] [address] Assigned Cancer Care Provider 05/25/23 Marlene White, [facility] Community Health Worker Primary Care - CC 12/11/23 Mer Holguin, [facility] Lead Power Cleaner Operator Primary Care - CC 12/12/2312/15 Marlene White, [facility] Community Health Worker Primary Care - CC 12/16/23 Raul Norris HEEL SANDER Clinic Power Cleaner Operator Primary Care - CC 12/16/23 documented as of this encounter
--- OUTSIDE RECORDS SUMMARY | 2024-03-16 07:11 | XMS_ITS | Encounter Summary ---
Author Organization [place] Address [address] [facility] [place] [address] Care Team Providers Care Appeals Assistant Name Role Phone Clinic, [facility] Unavailable Jennifer Pond MD Primary Care Provider + [phone] [facility], [address] Primary Care Pro vider Dany Hirsch Primary Care Provider [phone] Johnie Farmer Primary Care Provider [phone] JobОлег bergeron MD Unavailable [phone] Deven Schulte MD Unavailable [phone] Олег Kaiser MD Unavailable +[phone] Loretta Elizalde PA-C Unavailable [phone] Олег Kaiser MD Unavailable [phone] Loretta Elizalde PA-C Primary Care Provider [phone] Deven Schulte MD Unavailable [phone] Dong Craft MD Unavailable [phone] Dong Craft MD Unavailable [phone] Grazyna Damian BLUEPRINT DEVELOPER Unavailable [phone] Marlene White CHW Unavailable [phone] Mer Holguin INDUSTRIAL SPECIALIST Unavailable [phone] Marlene White CHW Unavailable Raul Norris INDUSTRIAL SPECIALIST Unavailable [phone] Encounter Details Date Type Department Care Team (Late Contact Info) Description 10/13/2015 [facility] [address] [place] [phone] Ruth Leigh, AFUA Social History Tobacco Use [...] Info) Description 03/19/2024 7:00 AM CDT Lab [address] [address] 04/28/2024 7:30 AM EXECUTIVE ACCOUNT MANAGER Office Visit [facility] [address] [place] [address] Loretta Elizalde PA-C [address] [place], [place] 8[address] 09/09/2024 7:00 AM CDT Lab [address] [address] 09/15/2024 8:30 AM CDT Virtual Visit [facility] [address] [place] [address] Dong Craft MD [address] [facility], [address] [place] [address] documented as of this encounter Visit Diagnoses Not on filedocumented in this encounter Additional Health Concerns Infection Onset Date Last Indicated Resolved Time Rule Out COVID-19 10/09/2019 10/09/2019 10/09/2019 9:36 PM CDT Rule Out COVID-19 11/20/2019 11/20/2019 11/21/2019 5:10 PM CDT Rule Out COVID-19 11/25/2019 11/25/2019 11/26/2019 4:41 PM CDT Rule Out COVID-19 04/18/2020 04/18/2020 04/18/2020 4:22 PM EXECUTIVE ACCOUNT MANAGER COVID-19 04/18/2020 04/18/2020 05/09/2020 11:4 0 PM EXECUTIVE ACCOUNT MANAGER documented as of this encounter Care Teams Appeals Assistant Relationship Specialty Start Date End Date Jennifer Pond MD [address] [facility] [place] [address] PCP - General Internal Medicine 11/08/14 08/26/16 [facility] [address] [place] [address] PCP - General 08/27/16 10/26/16 Dany Hirsch [address] [place] [address] PCP - General Family Practice 10/27/16 01/29/18 Johnie Farmer [address] [place] [address] PCP - General Family Practice 01/30/18 09/24/22 Loretta Elizalde PA-C [address] [place] [address] PCP - General Family Medicine 09/25/[address] [address] 06/14/11 08/26/16 Олег Kaiser MD [address] [place], [place] [address] Urology 04/05/21 Deven Schulte MD [address] [place] [address] 518415 Assigned Surgical Provider 04/23/21 09/21/22 Олег Kaiser MD [address] [place] [address] Assigned Surgical Provider 04/16/21 04/22/21 Loretta Elizalde PA-C [address] [place], [place] 2157368 Assigned PCP 09/22/22 Олег Kaiser MD [address] [place] [address] Assigned Surgical Provider 09/22/22 09/28/22 Deven Schulte MD [address] [place], [place] 087575 Assigned Surgical Provider 09/29/22 10/19/22 Dong Craft MD [address] [place] [address] Hematology 10/09/22 Dong Craft MD [address] [place] [address] Assigned Cancer Care Provider 11/24/22 05/24/23 Grazyna Damian, BLUEPRINT DEVELOPER [address] [address] Assigned Cancer Care Provider 05/25/23 Marlene White, W Community Health Worker Primary Care - CC 12/11/23 12/12/23 Mer Holguin, [facility] Lead Rn X Ray Primary Care - CC 12/12/2312/15 Marlene White, [facility] Community Health Worker Primary Care - CC 12/16/23 02/19/24 Raul Norris, [facility] Clinic Rn X Ray Primary Care - CC 12/16/23 02/19/24 documented as of this encounter
--- OUTSIDE RECORDS SUMMARY | 2024-03-16 07:11 | XMS_ITS | Encounter Summary ---
Author Organization [place] Address [address] [place] [address]. [place] [address] Care Team Providers Care Cylinder Die Machine Operator Name Role Phone Олег Kaiser MD Unavailable [phone] Loretta Elizalde PA-C Unavailable [phone] Loretta Elizalde PA-C Primary Care Provider [phone] Dong Craft MD Unavailable [phone] Dong Craft MD Unavailable Grazyna Damian BUILDING WRECKER Unavailable [phone] Marlene White CHW Unavailable Mer Holguin MEDICAL TECHNOLOGIST CHEMISTRY Unavailable Marlene White CHW Unavailable Raul Norris MEDICAL TECHNOLOGIST CHEMISTRY Unavailable [phone] Encounter Details Date Type Department Care Team (Late st Contact Info) Description 12/10/2022 [facility] Medical Advice [facility] [address] [place] [address] Vibha Ernst Social History Tobacco [...] Info) Description 03/19/2024 7:00 AM CDT Lab [place] [address] [place] [address] 04/28/2024 7:30 AM MOLD TECHNICIAN Office [facility] [address] [place] [phone] Loretta Elizalde PA-C [address] [place], [place] 5629768 09/09/2024 7:00 AM CDT Lab [place] [address] [place] [address] 09/15/2024 8:30 AM CDT Virtual Visit [facility] [address] [place] [address] Dong Craft MD [facility] [address], [address] [address] documented as of this encounter Visit Diagnoses Not on filedocumented in this encounter Additional Health Concerns Assessment Noted Time PHQ-9 Depression Total Score: 2 09/12/19 23 7:51 AM CDT documented as of this encounter Care Teams Cylinder Die Machine Operator Relationship Specialty Start Date End Date Loretta Elizalde PA-C [address] [place], [place] 1391668 PCP - General Family Medicine 09/25/22 Олег Kaiser MD [address] [place] [address] Urology 04/05/21 Loretta Elizalde PA-C [address] [place] [address] Assigned PCP 09/22/22 Dong Craft MD 909 [place] [address] Hematology 10/09/22 Dong Craft MD [address], [address] 311[address] Assigned Cancer Care Provider 11/24/22 05/24/23 Grazyna Damian CNP 420 [facility] [address] [place], [place] 843585 Assigned Cancer Care Provider 05/25/23 Marlene White, [facility] Community Health Worker Primary Care - CC 12/11/23 Mer Holguin, [facility] Lead Radiation / Chemistry Technician Primary Care - CC 12/12/2312/15 Marlene White, [facility] Community Health Worker Primary Care - CC 12/16/23 Raul Norris [facility] Clinic Radiation / Chemistry Technician Primary Care - CC 12/16/23 documented as of this encounter
--- OUTSIDE RECORDS SUMMARY | 2024-03-16 07:11 | XMS_ITS | Encounter Summary ---
Author Organization [place] Address [address] [place] [address] Care Team Providers Care Scheduling Coordinator Name Role Phone Олег Kaiser MD Unavailable [phone] Loretta Elizalde PA-C Unavailable [phone] Loretta Elizalde PA-C Primary Care Provider [phone] Dong Craft MD Unavailable [phone] Dong Craft MD Unavailable [phone] Grazyna Damian TIRE BALANCER Unavailable [phone] Marlene White CHW Unavailable Mer Holguin FOOD TECHNOLOGIST Unavailable Marlene White CHW Unavailable [phone] Raul Norris FOOD TECHNOLOGIST Unavailable [phone] Encounter Details Date Type Department Care Team (Late st Contact Info) Description 02/01/2023 [facility] Medical Advice [address] [address] Faith Cano Social History Tobacco Use [...] Info) Description 03/19/2024 7:00 AM CDT Lab [facility] [address] [place] [address] 04/28/2024 7:30 AM HEALTH AND SAFETY TECH Office [facility] [address] [place] [address] Loretta Elizalde PA-C [address] [place], [place] [phone] 09/09/2024 7:00 AM CDT Lab [facility] [address] [place] [address] 09/15/2024 8:30 AM CDT Virtual Visit [facility] [address] [place] [phone] Dong Craft MD [facility] [address], [address] [address] documented as of this encounter Visit Diagnoses Not on filedocumented in this encounter Additional Health Concerns Assessment Noted Time PHQ-9 Depression Total Score: 2 09/12/19 23 7:51 AM CDT documented as of this encounter Care Teams Scheduling Coordinator Relationship Specialty Start Date End Date Loretta Elizalde PA-C [address] [place] [address] PCP - General Family Medicine 09/25/22 Олег Kaiser MD [address] [place] [address] Urology 04/05/21 Loretta Elizalde PA-C [address] [place] [address] Assigned PCP 09/22/22 Dong Craft MD [address] [place] [address] MD Hematology 10/09/22 Dong Craft MD [address] [facility] [address] [place] [address] Assigned Cancer Care Provider 11/24/22 05/24/23 Grazyna Damian CNP [address] [facility] [address] [place] [address] Assigned Cancer Care Provider 05/25/23 Marlene White, [facility] Community Health Worker Primary Care - CC 12/11/23 Mer Holguin, [facility] Lead Inhalation Therapist Primary Care - CC 12/12/2312/15 Marlene White, [facility] Community Health Worker Primary Care - CC 12/16/23 Raul Norris FOOD TECHNOLOGIST Clinic Inhalation Therapist Primary Care - CC 12/16/23 documented as of this encounter
--- OUTSIDE RECORDS SUMMARY | 2024-03-16 07:11 | XMS_ITS | Encounter Summary ---
Author Organization [place] Address [address] [place] [address] Care Team Providers Care Professional Athlete Name Role Phone Олег Kaiser MD Unavailable [phone] Loretta Elizalde PA-C Unavailable [phone] Loretta Elizalde PA-C Primary Care Provider [phone] Dong Craft MD Unavailable [phone] Dong Craft MD Unavailable [phone] Grazyna Damian TURF MANAGER Unavailable [phone] Marlene White CHW Unavailable Mer Holguin DIRECTOR OF DIGITAL PLATFORMS Unavailable Marlene White CHW Unavailable [phone] Raul Norris DIRECTOR OF DIGITAL PLATFORMS Unavailable [phone] Encounter Details Date Type Department Care Team (Late st Contact Info) Description 12/06/2022 [facility] Medical [facility] [address] [place] [address] [facility] Social History Tobacco Use Types Packs/Day Years [...] Info) Description 03/19/2024 7:00 AM CDT Lab [place] [address] [place] [address] 04/28/2024 7:30 AM CERTIFIED PEDIATRIC NURSE PRACTITIONER Office Visit [facility] [address] [place] [phone] Loretta Elizalde PA-C [address] [place], [place] 6233468 09/09/2024 7:00 AM CDT Lab [place] [address] [place] [address] 09/15/2024 8:30 AM CDT Virtual Visit [facility] [address] [place] [address] Dong Craft MD [facility] [address], [address] [address] documented as of this encounter Visit Diagnoses Not on filedocumented in this encounter Additional Health Concerns Assessment Noted Time PHQ-9 Depression Total Score: 2 09/12/19 23 7:51 AM CDT documented as of this encounter Care Teams Professional Athlete Relationship Specialty Start Date End Date Loretta Elizalde PA-C [address] [place], [place] [phone] PCP - General Family Medicine 09/25/22 Олег Kaiser MD [address] [place] [address] [id number] Urology 04/05/21 Loretta Elizalde, PAJennyC [address] [place] [address] Assigned PCP 09/22/22 Dong Craft MD 909 [place] [address] Hematology 10/09/22 Dong Craft MD [address], 05 [place] [address] Assigned Cancer Care Provider 11/24/22 05/24/23 Grazyna Damian CNP 420 [facility] 480 [place], [place] 640535 Assigned Cancer Care Provider 05/25/23 Marlene White, [facility] Community Health Worker Primary Care - CC 12/11/23 Mer Holguin, [facility] Lead Detailer Primary Care - CC 12/12/2312/15 Marlene White, [facility] Community Health Worker Primary Care - CC 12/16/23 Raul Norris DIRECTOR OF DIGITAL PLATFORMS Clinic Detailer Primary Care - CC 12/16/23 documented as of this encounter
--- OUTSIDE RECORDS SUMMARY | 2024-03-16 07:11 | XMS_ITS | Encounter Summary ---
Author Organization [place] Address [address] [facility] [place] [address] Care Team Providers Care District Claims Manager Name Role Phone Олег Kaiser MD Unavailable [phone] Loretta Elizalde PA-C Unavailable [phone] Loretta Elizalde PA-C Primary Care Provider [phone] Dong Craft MD Unavailable [phone] Dong Craft MD Unavailable [phone] Grazyna Damian PHOTONIC LABORATORY TECHNICIAN Unavailable [phone] Marlene White CHW Unavailable Mer Holguin ZIGZAGGER Unavailable [phone] Marlene White CHW Unavailable [phone] Raul Norris ZIGZAGGER Unavailable [phone] Encounter Details Date Type Department Care Team (Late st Contact Info) Description 01/07/2023 [facility] [address] [address] Hallie Maria Social History Tobacco [...] Info) Description 03/19/2024 7:00 AM CDT Lab [place] [address] [place] [address] 04/28/2024 7:30 AM CARBONATING STONE CLEANER Office Visit [facility] [address] [place] [phone] Loretta Elizalde PA-C [address] [place], [place] 5100068 09/09/2024 7:00 AM CDT Lab [place] [address] [place] [address] 09/15/2024 8:30 AM CDT Virtual Visit [facility] [address] [place] [address] Dong Craft MD [address] [place] [address], [address] 629594 documented as of this encounter Visit Diagnoses Not on filedocumented in this encounter Additional Health Concerns Assessment Noted Time PHQ-9 Depression Total Score: 2 09/12/19 23 7:51 AM CDT documented as of this encounter Care Teams District Claims Manager Relationship Specialty Start Date End Date Loretta Elizalde PA-C [address] [place], [place] 6052068 PCP - General Family Medicine 09/25/22 Олег Kaiser MD [address] [place] [address] Urology 04/05/21 Loretta Elizalde PA-C [address] [place] [address] Assigned PCP 09/22/22 Dong Craft MD 909 [place], [place] 744715 Hematology 10/09/22 Dong Craft MD [address], [address] [place], [place] 6[address]224 Assigned Cancer Care Provider 11/24/22 05/24/23 Grazyna Damian CNP [address] [place] [address] 480 [place], [place] 021885 Assigned Cancer Care Provider 05/25/23 Marlene White, [facility] Community Health Worker Primary Care - CC 12/11/23 Mer Holguin, [facility] Lead Hydraulic Lift Driver Primary Care - CC 12/12/2312/15 Marlene White, [facility] Community Health Worker Primary Care - CC 12/16/23 Raul Norris [facility] Clinic Hydraulic Lift Driver Primary Care - CC 12/16/23 documented as of this encounter
--- OUTSIDE RECORDS SUMMARY | 2024-03-16 07:12 | XMS_ITS | Encounter Summary ---
Author Organization [employer] Address [address] [place] [address] Care Team Providers Care Career Counselor Name Role Phone Johnie Farmer MD Primary Care Provider [phone] Encounter Details Date Type Department Care Team (Late st Contact Info) Description 09/28/2013 Outside Hospital External to [facility], Provider DISCHARGE SUMMARY Social History Tobacco [...] R/O COVID19 04/18/2020 04/18/2020 04/19/2020 5:02 PM DOCKET CLERK COVID19 04/18/2020 04/18/2020 05/09/2020 3:17 AM DOCKET CLERK documented as of this encounter Care Teams Career Counselor Relationship Specialty [place] [address] [place] [address] PCP - General Family Practice 01/30/18 documented as of this encounter
--- OUTSIDE RECORDS SUMMARY | 2024-03-16 07:12 | XMS_ITS | Encounter Summary ---
Author Organization [facility] Address [address] [place] [address] Care Team Providers Care Language Translator Name Role Phone MarlenyJohnie MD Primary Care Provider [phone] Reason for Visit * Procedure/Equipment (Routine) - Incomplete Specialty Diagnoses / Procedures Referred By Lindy holcomb Referred To Contact Diagnoses Acute right-sided thoracic back pain (HRC) Procedures XR Thoracic Spine 3 Views Diana Yao APRN, SHOULDER PAD MOLDER [address] [place] [address] Referral ID Status Reason Start Date Expiration Date V isits Requested Visits Authorized [id number] Incomplete 02/17/2024 05/18/2025 1 1 Encounter Details Date Type Department Care Team (Latest Contact Info) Description 02/17/2024 6:00 PM CDT Ancillary Procedure Radiology at [address] [address] Diana Yao APRN, SHOULDER PAD MOLDER [address] [place] [address] Acute right-sided thoracic back pain (HRC) Social History Tobacco Use Types Packs/Day Years [...] on file documented as of this encounter Procedures Procedure Name Priority Date/Time Associated Diagnosis Comments XR THORACIC SPINE 3 VIEWS STAT 02/17/2024 6:04 PM CDT Acute right-sided thoracic back pain (HRC) documented in this encounter Results * XR Thoracic Spine 3 Views (02/17/2024 6:04 PM CDT) Anatomical Region Laterality Modality Spine, T-Spine Digital Radiogra phy 02/17/2024 6:04 PM CDT Narrative 02/17/2024 6:32 PM CDT EXAM: XR THORACIC SPINE 3 VIEWS LOCATION: [facility] DATE: 02/17/2024 INDICATION: Mid thoracic back pain, Pain in thoracic spine (HRC), PAIN COMPARISON: None. IMPRESSION: Normal vertebral body heights. No fractures. Minimal mid thoracic rightward curvature of less than 10 degrees. Mild mid and lower thoracic degenerative disc changes with chronic appearing endplate irregularities. Procedure Note Neil Arthur MD - 02/17/2024 EXAM: XR THORACIC SPINE 3 VIEWS LOCATION: [facility] DATE: 02/17/2024 INDICATION: Mid thoracic back pain, Pain in thoracic spine (HRC), PAIN COMPARISON: None. IMPRESSION: Normal vertebral body heights. No fractures. Minimal midthoracic rightward curvature of less than 10 degrees. Mild mid and lowerthoracic degenerative disc changes with chronic appearing endplateirregularities. Diana Yao CASE WORK AIDE, SHOULDER PAD MOLDER RAD GD documented in this encounter Visit Diagnoses Diagnosis Acute right-sided thoracic back pain (HRC) documented in this encounter Care Teams Language Translator Relationship Specialty [place] [address] [place] [address] PCP - General Family Practice 01/30/18 documented as of this encounter
--- OUTSIDE RECORDS SUMMARY | 2024-03-16 07:12 | XMS_ITS | Encounter Summary ---
Author Organization [employer] Address [address] [place] [address] Care Team Providers Care Auto Care Center Manager Name Role Phone Johnie Farmer MD Primary Care Provider Encounter Details Date Type Department Care Team (Late st Contact Info) Description 09/27/2013 Outside Hospital External to [facility], Provider CONSULT Social History Tobacco Use [...] R/O COVID19 04/18/2020 04/18/2020 04/19/2020 5:02 PM POULTRY CUTTER COVID19 04/18/2020 04/18/2020 05/09/2020 3:17 AM POULTRY CUTTER documented as of this encounter Care Teams Auto Care Center Manager Relationship Specialty [place] [address] [place] [address] PCP - General Family Practice 01/30/18 documented as of this encounter
--- OUTSIDE RECORDS SUMMARY | 2024-03-16 07:12 | XMS_ITS | Encounter Summary ---
Author Organization [place] Address [address] [facility] [place] [address] Care Team Providers Care Latent Print Examiner Name Role Phone [facility] Unavailable Kate Bradley PA-C Primary Care Pro vider [facility] Alicia [facility] Primary Care P rovider Jennifer Pond MD Primary Care Provider + [phone] [facility] Camilo Clyde Primary Care Pro vider Dany Hirsch Primary Care Provider [phone] Johnie Farmer Primary Care Provider JobОлег MD Unavailable [phone] Deven Schulte MD Unavailable [phone] JobОлег bergeron MD Unavailable [phone] Loretta Elizalde PA-C Unavailable [phone] JobОлег bergeron MD Unavailable [phone] Loretta Elizalde PA-C Primary Care Provider [phone] Deven Schulte MD Unavailable [phone] Dong Craft MD Unavailable [phone] Dong Craft MD Unavailable [phone] Grazyna Damian CNP Unavailable [phone] Marlene White CHW Unavailable Mer Holguin CAREER AND GUIDANCE COUNSELOR Unavailable Marlene White CHW Unavailable Raul Norris CAREER AND GUIDANCE COUNSELOR Unavailable [phone] Encounter Details Date Type Department Care Team (Late st Contact Info) Description 10/22/2013 MyC Medical Advice [facility] [address] [place] [address] [address] [place] [phone] Kate Bradley PA-C [facility] [address], [facility] [address] [place] [address] Social History Tobacco Use Types Packs/Day Years [...] Info) Description 03/19/2024 7:00 AM CDT Lab [place] [address] [place] [address] 04/28/2024 7:30 AM ENGINE INSPECTOR Office Visit [facility] [address] [place] [address] Loretta Elizalde [place] [address] [place] [address] 09/09/2024 7:00 AM CDT Lab [place] [address] [place] [address] 09/15/2024 8:30 AM CDT Virtual Visit [facility] [address] [place] [address] Dong Craft MD [facility] [address], [address] [address] documented as of this encounter Visit Diagnoses Not on filedocumented in this encounter Additional Health Concerns Infection Onset Date Last Indicated Resolved Time Rule Out COVID-19 10/09/2019 10/09/2019 10/09/2019 9:36 PM CDT Rule Out COVID-19 11/20/2019 11/20/2019 11/21/2019 5:10 PM CDT Rule Out COVID-19 11/25/2019 11/25/2019 11/26/2019 4:41 PM CDT Rule Out COVID-19 04/18/2020 04/18/2020 04/18/2020 4:22 PM ENGINE INSPECTOR COVID-19 04/18/2020 04/18/2020 05/09/2020 11:4 0 PM ENGINE INSPECTOR documented as of this encounter Care Teams Latent Print Examiner Relationship Specialty Start Date End Date Kate Bradley PA-C [address] [place] [address] PCP - General Family Practice 09/22/13 10/27/14 Clinic [facility] [address] [place] [address] PCP - General 10/28/14 11/07/14 Jennifer Pond MD [address] [facility] [place] [address] PCP - General Internal Medicine 11/08/14 08/26/16 [facility] [address] [place] [address] PCP - General 08/27/16 10/26/16 Dany Hirsch [address] [place] [address] PCP - General Family Practice 10/27/16 01/29/18 Johnie Farmer [address] [place] [address] PCP - General Family Practice 01/30/18 09/24/22 Loretta Elizalde PA-C [address] [place] [address] PCP - General Family Medicine 09/25/[address] [address] 06/14/11 08/26/16 Олег Kaiser MD [address] [place] [address] Urology 04/05/21 Deven Schulte MD [address] [place] [address] Assigned Surgical Provider 04/23/21 09/21/22 Олег Kaiser MD [address] [place] [address] Assigned Surgical Provider 04/16/21 04/22/21 Loretta Elizalde PA-C [address] [place] [address] Assigned PCP 09/22/22 Олег Kiaser MD [address] [place] [address] 426685 Assigned Surgical Provider 09/22/22 09/28/22 Deven Schulte MD [address] [place], [place] [address]695 Assigned Surgical Provider 09/29/22 10/19/22 Dong Craft MD [address] [place] [address] MD Dal[place] 10/09/22 Dong Craft MD [address] [place] [address] Assigned Cancer Care Provider 11/24/22 05/24/23 Grazyna Damian CNP [address] [place] [address] 480 [place], [place] 278735 Assigned Cancer Care Provider 05/25/23 Marlene White, [facility] Community Health Worker Primary Care - CC 12/11/23 12/12/23 Mer Holguin, [facility] Lead Flight Radio Operator Primary Care - CC 12/12/2312/15 Marlene White, [facility] Community Health Worker Primary Care - CC 12/16/23 02/19/24 Raul Norris [facility] Clinic Flight Radio Operator Primary Care - CC 12/16/23 02/19/24 documented as of this encounter
--- OUTSIDE RECORDS SUMMARY | 2024-03-16 07:12 | XMS_ITS | Encounter Summary ---
Author Organization [place] Address [address] [facility] [place] [address] Care Team Providers Care Jewelry Salesperson Name Role Phone [facility] Unavailable Kate Bradley PA-C Primary Care Pro vider [facility] Alic[facility] Primary Care P rovider Jennifer Pond MD Primary Care Provider + [phone] [facility] Camilo Candor Primary Care Pro vider Dany Hirsch Primary Care Provider Johnie Farmer Primary Care Provider JobОлег MD Unavailable +[phone] Deven Schulte MD Unavailable [phone] JobОлег bergeron MD Unavailable +[phone] Loretta Elizalde PA-C Unavailable [phone] JobОлег bergeron MD Unavailable +[phone] Loretta Elizalde PA-C Primary Care Provider [phone] Deven Schulte MD Unavailable [phone] Dong Craft MD Unavailable [phone] Dong Craft MD Unavailable [phone] Grazyna Damian CNP Unavailable [phone] Marlene White CHW Unavailable [phone] Mer Holguin INDUSTRY OPERATIONS INVESTIGATOR Unavailable Marlene White CHW Unavailable Raul Norris INDUSTRY OPERATIONS INVESTIGATOR Unavailable [phone] Encounter Details Date Type Department Care Team (Late Contact Info) Description 10/19/2014 [facility] Medical Advice [facility] [address] [place] [address] [facility] Social History Tobacco Use [...] Info) Description 03/19/2024 7:00 AM CDT Lab [place] [address] [place] [address] 04/28/2024 7:30 AM ENVIRONMENTAL SCIENCES PROFESSOR Office Visit [facility] [address] [place] [address] Loretta Elizalde PA-C [address] [place], [place] [address] 09/09/2024 7:00 AM CDT Lab [place] [address] [place] [address] 09/15/2024 8:30 AM CDT Virtual Visit [facility] [address] [place] [address] Dong Craft MD [facility] [address] [address] documented as of this encounter Visit Diagnoses Not on filedocumented in this encounter Additional Health Concerns Infection Onset Date Last Indicated Resolved Time Rule Out COVID-19 10/09/2019 10/09/2019 10/09/2019 9:36 PM CDT Rule Out COVID-19 11/20/2019 11/20/2019 11/21/2019 5:10 PM CDT Rule Out COVID-19 11/25/2019 11/25/2019 11/26/2019 4:41 PM CDT Rule Out COVID-19 04/18/2020 04/18/2020 04/18/2020 4:22 PM ENVIRONMENTAL SCIENCES PROFESSOR COVID-19 04/18/2020 04/18/2020 05/09/2020 11:4 0 PM ENVIRONMENTAL SCIENCES PROFESSOR documented as of this encounter Care Teams Jewelry Salesperson Relationship Specialty Start Date End Date Kate Bradley PA-C [address] [place] [address] PCP - General Family Practice 09/22/13 10/27/14 [facility] [address] [place] [address] PCP - General 10/28/14 11/07/14 Jennifer Pond MD [address] [facility] [address] PCP - General Internal Medicine 11/08/14 08/26/16 [facility] [address] [place] [address] PCP - General 08/27/16 10/26/16 Dany Hirsch [address] [place] [address] PCP - General Family Practice 10/27/16 01/29/18 Johnie Farmer [address] [place] [address] PCP - General Family Practice 01/30/18 09/24/22 Loretta Elizalde PA-C [address] [place] [address] PCP - General Family Medicine 09/25/22 [facility] [address] [place] [address] 06/14/11 08/26/16 Олег Kaiser MD [address] [place] [address] Urology 04/05/21 Deven Schulte MD [address] [place] [address] Assigned Surgical Provider 04/23/21 09/21/22 Олег Kaiser MD [address] [place] [address] Assigned Surgical Provider 04/16/21 04/22/21 Loretta Elizalde PA-C [address] [place] [address] Assigned PCP 09/22/22 Олег Kaiser MD [address] [place] [address] Assigned Surgical Provider 09/22/22 09/28/22 Deven Schulte MD [address] [place] [address] Assigned Surgical Provider 09/29/22 10/19/22 Dong Craft MD [address] [place] [address] MD Dalia 10/09/22 Dong Craft MD [address] [place] [address] Assigned Cancer Care Provider 11/24/22 05/24/23 Grazyna Damian CNP [address] [place] [address] [address] [place] [address] Assigned Cancer Care Provider 05/25/23 Marlene White, [facility] Community Health Worker Primary Care - CC 12/11/23 12/12/23 Mer Holguin, [facility] Lead Professor Of Anthropology Primary Care - CC 12/12/2312/15 Marlene White, [facility] Community Health Worker Primary Care - CC 12/16/23 02/19/24 Raul Norris [facility] Clinic Professor Of Anthropology Primary Care - CC 12/16/23 02/19/24 documented as of this encounter
--- OUTSIDE RECORDS SUMMARY | 2024-03-16 07:12 | XMS_ITS | Encounter Summary ---
Author Organization [place] Address [address] [facility] [place] [address] Care Team Providers Care Clinical Radiologist Name Role Phone Clinic, [facility] Unavailable Jennifer Pond MD Primary Care Provider + [phone] [facility] Camilo [place] Primary Care Pro vider Dany Hirsch Primary Care Provider [phone] Johnie Farmer Primary Care Provider [phone] JobОлег bergeron MD Unavailable +[phone] Deven Schulte MD Unavailable [phone] Олег Kaiser MD Unavailable +[phone] Loretta Elizalde PA-C Unavailable [phone] Олег Kaiser MD Unavailable +[phone] Loretta Elizalde PA-C Primary Care Provider [phone] Deven Schulte MD Unavailable [phone] Dong Craft MD Unavailable [phone] Dnog Craft MD Unavailable [phone] Grazyna Damian DIRECTOR TEEN POST Unavailable [phone] Marlene White CHW Unavailable [phone] Mer Holguin IP LITIGATION [place] Unavailable [phone] Marlene White CHW Unavailable Raul Norris IP LITIGATION [place]GAL Unavailable [phone] Encounter Details Date Type Department Care Team (Late Contact Info) Description 01/24/2015 [facility] [address] [place] [id number] Ruth Leigh, SKI TOP TRIMMER Social History Tobacco Use Types Packs/Day Years [...] Info) Description 03/19/2024 7:00 AM CDT Lab [address] [address] 04/28/2024 7:30 AM BOOKKEEPING MANAGER Office Visit [facility] [address] [place] [address] Loretta Elizalde PA-C [address] [place], [place] [address] 09/09/2024 7:00 AM CDT Lab [address] [address] 09/15/2024 8:30 AM CDT Virtual Visit [facility] [address] [place] [address] Dong Craft MD [address] [facility] [place] [address] documented as of this encounter Visit Diagnoses Not on filedocumented in this encounter Additional Health Concerns Infection Onset Date Last Indicated Resolved Time Rule Out COVID-19 10/09/2019 10/09/2019 10/09/2019 9:36 PM CDT Rule Out COVID-19 11/20/2019 11/20/2019 11/21/2019 5:10 PM CDT Rule Out COVID-19 11/25/2019 11/25/2019 11/26/2019 4:41 PM CDT Rule Out COVID-19 04/18/2020 04/18/2020 04/18/2020 4:22 PM BOOKKEEPING MANAGER COVID-19 04/18/2020 04/18/2020 05/09/2020 11:4 0 PM BOOKKEEPING MANAGER documented as of this encounter Care Teams Clinical Radiologist Relationship Specialty Start Date End Date Jennifer Pond MD [address] [facility] [place] [address] PCP - General Internal Medicine 11/08/14 08/26/16 [facility] [address] [place] [address] PCP - General 08/27/16 10/26/16 Dany Hirsch [address] [place] [address] PCP - General Family Practice 10/27/16 01/29/18 Johnie Farmer [address] [place] [address] PCP - General Family Practice 01/30/18 09/24/22 Loretta Elizalde PA-C [address] [place] [address] PCP - General Family Medicine 09/25/[address] [address] 06/14/11 08/26/16 Олег Kaiser MD [address] [place], [place] [address] Urology 04/05/21 Deven Schulte MD [address] [place] [address] Assigned Surgical Provider 04/23/21 09/21/22 Олег Kaiser MD [address] [place] [address] Assigned Surgical Provider 04/16/21 04/22/21 Loretta Elizalde PA-C [address] [place], [place] [address] Assigned PCP 09/22/22 Олег Kaiser MD [address] [place] [address] Assigned Surgical Provider 09/22/22 09/28/22 Deven Schulte MD [address] [place], [place] [address] Assigned Surgical Provider 09/29/22 10/19/22 Dong Craft MD [address] [place] [address] Hematology 10/09/22 Dong Craft MD [address] [place] [address] Assigned Cancer Care Provider 11/24/22 05/24/23 Grazyna Damian, DIRECTOR TEEN POST [address] [address] Assigned Cancer Care Provider 05/25/23 Marlene White, W Community Health Worker Primary Care - CC 12/11/23 12/12/23 Mer Holguin, [facility] Lead Gun Sealing Machine Operator Primary Care - CC 12/12/2312/15 Marlene White, [facility] Community Health Worker Primary Care - CC 12/16/23 02/19/24 Raul Norris, [facility] Clinic Gun Sealing Machine Operator Primary Care - CC 12/16/23 02/19/24 documented as of this encounter
--- OUTSIDE RECORDS SUMMARY | 2024-03-16 07:12 | XMS_ITS | Referral Summary ---
Author Organization [facility] Address [address] [place] [address] Care Team Providers Care Psychiatric Np Name Role Phone Johnie Farmer Primary Care Provider [phone] Clinic, Not Listed Unavailable Unavailable Allergies No [...] Pernicious anemia 09/22/2013 S/P gastric bypass 06/25/2008 Overview (10/03/2018): ~2001, [facility], Dr Zhou? Social History Tobacco Use Types [...] HGB) 8.2(H) <5.7 % 10/03/2018 12:22 PM [facility] EAG (EST. AVERAGE GLUCOSE) 189(H) <117 mg/dL 10/03/2018 12:22 PM [facility] Blood 10/03/2018 6:46 AM CDT 10/03/2018 7:16 AM CDT Pegyg Caba MD CHEMISTRY ORDERABLE [facility] [address] [place] [address] * (ABNORMAL) Basic Metabolic Profile (10/02/2018 1:35 PM CDT) Sodium 141 136 - 145 mmol/L 10/02/2018 2:09 PM [facility] Potassium 3.8 3.5 - 5.1 mmol/L 10/02/2018 2:09 PM [facility] Chloride 110 98 - 112 mmol/L 10/02/2018 2:09 PM [facility] Carbon Dioxide 24 21 - 32 mmol/L 10/02/2018 2:09 PM [facility] BUN (Urea Nitro) 8 7 - 24 mg/dL 10/02/2018 2:09 PM [facility] Creatinine 0.96 0.70 - 1.30 mg/dL 10/02/2018 2:09 PM [facility] Est GFR (CKD-EPI) >60 >60 mL/min 10/02/2018 2:09 PM [facility] EST GFR IF AM >60 >60 mL/min 10/02/2018 2:09 PM [facility] Glucose 113(H) 74 - 106 mg/dL 10/02/2018 2:09 PM [facility] Calcium, Serum 7.8(L) 8.5 - 10.1 mg/dL 10/02/2018 2:09 PM [facility] Anion Gap 7.0 0.0 - 15.0 mmol/L 10/02/2018 2:09 PM [facility] Blood 10/02/2018 1:35 PM CDT 10/02/2018 1:45 PM CDT Linn Jesus PA-C CHEMISTRY ORDERABLE [facility] [address] [place] [address] from Last 3 Months or Most Recently Relevant to Health Maintenance Advance Directives For more information, please contact: [phone] * Full Code (Latest Code Status on File) Date Activated Date Inactivated Comments 10/02/2018 6:16 PM 10/03/2018 10:01 PM Question Answer Comments How was code status determined? Patient Care Teams Psychiatric Np Relationship Specialty Start Date End Date Johnie Farmer PCP - General Family Medicine 09/30/18 Clinic, Not Listed PCP - Primary Care Clinic 12/25/19
--- OUTSIDE RECORDS SUMMARY | 2024-03-16 07:12 | XMS_ITS | Encounter Summary ---
Author Organization [facility] Address [address] [place] [address] Care Team Providers Care Social Work Associate Name Role Phone Johnie Farmer MD Primary Care Provider [phone] Encounter Details Date Type Department Care Team (Late st Contact Info) Description 08/14/2012 Emergency Room External to Kylee Lara SHORTNESS OF BREATH CHEST TIGHNESS AND HEEL [...] R/O COVID19 04/18/2020 04/18/2020 04/19/2020 5:02 PM LOOP MACHINE OPERATOR COVID19 04/18/2020 04/18/2020 05/09/2020 3:17 AM LOOP MACHINE OPERATOR documented as of this encounter Care Teams Social Work Associate Relationship Specialty [place] [address] [place] [address] PCP - General Family Practice 01/30/18 documented as of this encounter
--- OUTSIDE RECORDS SUMMARY | 2024-03-16 07:12 | XMS_ITS | Clinical Summary ---
Author Organization [employer] Address [address] [place] [address] Care Team Providers Care Manager Of Case Name Role Phone MarlenyJohnie MD Primary Care Provider [phone] Source Comments You are receiving this document as you are listed as the primary care provider,follow-up provider, or the patient has been referred to you for consultation.This is in compliance with the Medicare and[facility] Memorial[facility] EHR Incentive Program,which states Providers who transition their patient to another setting of careor provider of care or refers their patient to another provider of care shouldprovide summary care record for each transition of care or referral. [employer] Allergies Active Allergy Reactions Criticality Noted Date Comments Nsaids 06/09/2018 Medications Medication Sig Dispensed Refills Start Date End Date Status lancets (SOFTCLIX) Use 1 Each to test three times a day. Use as directed. Pharmacy dispense brand based on insurance. 300 Each 3 11/22/2016 Active ferrous sulfate 325 (65 Fe) MG tabletIndications:L ow iron (HRC),S/P gastric bypass,Other iron deficiency anemia Take 1 Tablet by mouth daily. 90 Tablet 02/04/2018 Active Additional Information Patient not taking.Reported on 02/17/2024 metFORMIN (GLUCOPHAGE) 1000 MG tabletIndications:U ncontrolled type 2 diabetes mellitus without complication, without long-term current use of insulin Take 1 Tablet by mouth two times a day with meals. 180 Tablet 1 02/04/2018 Active amLODIPine (NORVASC) 10 MG tabletIndications:H ypertension Take 1 Tablet by mouth daily at [...] Tablet 08/15/2018 Active atorvastatin (LIPITOR) 40 MG tabletIndications:t o lower cholesterol Take 1 Tablet by mouth every evening. Indications: to lower cholesterol 90 Tablet 3 12/19/2018 Active Continuous Blood Gluc Podiatric Surgeon (FREESTYLE SHIRLENE 14 DAY READER) DEVIIndications:Unc ontrolled type 2 diabetes mellitus with hyperglycemia (HRC) Use as directed 1 Device 05/07/2019 Active Continuous Blood Gluc Sensor (FREESTYLE SHIRLENE 14 DAY SENSOR) MISCIndications:Unc ontrolled type 2 diabetes mellitus with hyperglycemia (HRC) Use as directed 6 Each 3 05/07/2019 Active fluticasone-vilante rol (BREO ELLIPTA) 200-25 MCG/INH inhaler Inhale 1 [...] FOR WHEEZING 3 Each 1 03/02/2020 Active allopurinol (ZYLOPRIM) 100 MG tablet Take 1 Tablet (100 mg) by mouth. 01/29/2024 Active colchicine (COLCRYS) 0.6 MG tablet Take 1 Tablet (0.6 mg) by mouth. 12/11/2023 Active Olmesartan Medoxomil (BENICAR) 40 MG tablet Take 1 Tablet (40 mg) by mouth. 12/11/2023 Active semaglutide (OZEMPIC) 4 MG/3ML injection Inject 1 mg subcutaneously. 01/28/2024 Active sildenafil (VIAGRA) 50 MG tablet Take 0.5-2 Tablets (25-100 mg) by mouth. 01/28/2024 Active methylPREDNISolone (MEDROL 21 TABLET DOSEPACK) 4 MG tablet Follow package directions 21 Tablet 02/17/2024 Active methocarbamol (ROBAXIN) 500 MG tablet Take 1 Tablet (500 mg) by mouth 4 times a day for 3 days. 12 Tablet 02/17/2024 Active Problems Problem Noted Date Diagnosed Date Ambien accidental overdose 06/08/2019 Microcytic anemia 09/05/2017 BMI 35.0-35.9,adult 04/02/2017 Diabetes type 2, uncontrolled 03/11/2014 Generalized anxiety disorder 03/11/2014 Insomnia 03/11/2014 Overview (01/16/2017): Insomnia, unspecified HTN (hypertension) 03/11/2014 Moderate persistent asthma 11/14/2011 Alcohol dependence 01/03/2010 Overview (01/16/2017): Other and unspecified alcohol dependence, unspecified drinking behavior Gout 06/25/2008 S/P gastric bypass 06/25/2008 Resolved Problems Problem Noted Date Diagnosed Date Resolved Date Controlled substance agreement signed 05/19/2018 04/27/2019 Psychophysiological insomnia 09/06/2017 05/19/2018 Left sided abdominal pain 09/05/2017 Change in stool 09/05/2017 05/19/2018 Pain of left upper extremity 09/05/2017 05/19/2018 Superficial vein thrombosis 09/05/2017 06/09/2018 Overview (09/05/2017): 08/2017, left basillic vein Superficial thrombophlebitis of left upper extremity 09/05/2017 05/19/2018 Overview (09/05/2017): vs lymphangitis Centralized Behavioral Health Case Management 12/11/19 12 01/02/2012 Overview (12/11/2011): Background: BH Diagnosis: Episodic Mood Dis, Alcohol Dep, Adjustment Dis. Current situation: Patient in need of BH provider to evaluate and manage his BH medications and possible BH therapy. Providers outside of [facility]: none known of. Goals/Recommendations: Outpatient Behavioral Health Blood Or Blood Bank TechnicianDielectric Embossing Machine Operator Information: Sheri Chandler [facility] Action Plan: Assisted patient in scheduling 11/09/11 intake appointment with JELANI Momin at [facility] - patient didn't attend. Plan is to start with BH med mgt and then seek out BH therapy through [facility] so as to coordinate BH care. Hidradenitis suppurativa 07/12/2011 Knee pain 03/03/2011 05/19/2018 Vitamin D deficiency 05/16/2010 018 Hyperlipidemia with target LDL less than 100 0 04/27/2019 Overview (02/02/2015): ICD 10 Encounters Date Type Department Care Team Description 02/26/2024 E-Visit Dedicated Specialty Scheduling [address] [place] [address] Mee, Generic Provider 02/17/2024 6:00 PM CDT Ancillary Procedure Radiology at [address] [address] Diana Yao APRN, NORBERT Acute right-sided thoracic back pain (HRC) 02/17/2024 5:40 PM CDT Office Visit On license of [facility] [address] [address] Diana Yao APRN, MUSHROOM LABORER Acute right-sided thoracic back pain (HRC) (Primary Dx) from Last 3 Months Immunizations Name Administration Dates Next Due Flu Vac (3+ yrs) 03/08/2012,02/23/2011, 0 H1n1 Miv Sanofi 3+ Yr, Preservative-free (Injected) 07/08/2009 HepB Adult (Engerix-B, 20+ y rs, 3 dose series) 04/11/2012,05/12/2010,02/09/2010 Influenza IIV4 (Quadrivalent ) 0.5mL (69365) 02/12/2018,04/02/2017,02/09/2016,2013 Influenza, Unspecified Formulation 03/15/2019 PPSV23 (Pneumovax) [...] Sign Reading Time Taken Comments Blood Pressure 137/94 02/17/2024 5:46 PM CDT Pulse 76 02/17/2024 5:41 PM CDT Temperature 36.5 ??C (97.7 ??F) 02/17/2024 5:41 PM CD T Respiratory Rate 20 02/17/2024 5:41 PM CDT Oxygen Saturation 100% 02/17/2024 5:41 PM CDT Inhaled Oxygen Concentration - - Weight 105.7 kg (233 lb) 07/13/2019 4:53 PM BELT POLISHER Height 174 cm (5' 8.5) 07/13/2019 4:53 PM BELT POLISHER Body Mass Index 34.91 07/13/2019 4:53 PM BELT POLISHER Plan of Treatment Health Maintenance Due Date Last Done Comments Hep C Screening (Preventive Services) 1975 PSA Screening Discussion 1975 HIV Screening (Preventive Services) 1990 Adult Preventive Visit 02/07/1992 Colonoscopy 12/12/2019 12/11/2017 (Completed) Diabetes: Foot Exam 12/20/2019 12/19/2018 ( Completed), 09/06/2017 (Completed), 08/26/2014 (Completed), Additional history exists Asthma ACT 04/27/2020 04/27/2019, 08/25, 04/02/2017, Additional history exists Diabetes: Urine Microalbumin 04/27/2020 04/27/2019, 02/12/2018, 11/08/2016, Additional history exists Diabetes: Eye Exam 05/26/2020 05/26/2019 (C ompleted), 03/11/2018, 11/23/2016 (Completed), Additional history exists Diabetes: Creatinine 07/26/2020 07/27/2019, 07/13/2019, 04/27/2019, Additional history exists Diabetes: Lipid Panel 02/12/2023 02/12/2018 , 11/07/2016, 02/09/2016, Additional history exists COVID-19 Vaccine ( season) 2024 03/28/2023, 04/10/2022, 07/16/2021, Additional history exists Influenza (#1) 2024 03/28/2023, 03/27, 03/28/2021, Additional history exists Zoster/Shingles (1 of 2) 02/07/2024 Diabetes: HGBA1C 07/27/2024 01/28/2024, 07/2023, 12/04/2023, Additional history exists DTaP/Tdap/Td (3 - Tdap) 07/16/2031 07/16/2021, 07/18 HepB Completed 04/11/2012, 04/26, 02/09/2010 Pneumococcal Completed 03/28/2023, 08/25, 07/18/2009 HepA Aged Out No longer eligi ble based on patient's age to complete this topic Hib Aged Out No longer eligi ble based on patient's age to complete this topic IPV (Polio) Aged Out No longer eligi ble based on patient's age to complete this topic RSV Aged Out No longer eligi ble based on patient's age to complete this topic MCV4 Aged Out No longer eligi ble based on patient's age to complete this topic Procedures Procedure Name Priority Date/Time Associated Diagnosis Comments XR THORACIC SPINE 3 VIEWS STAT 02/17/2024 6:04 PM CDT Acute right-sided thoracic back pain (HRC) CREATININE / GFR Routine 07/27/2019 5:06 PM BELT POLISHER Preoperative examination HGB A1C Routine 07/13/2019 5:40 PM BELT POLISHER Uncontrolled type 2 diabetes mellitus with hyperglycemia (HRC) ALBUMIN/CREAT RATIO Routine 04/27/2019 6 :26 PM BELT POLISHER Uncontrolled type 2 diabetes mellitus with hyperglycemia (HRC) LIPID PANEL & DIRECT LDL (IF NEEDED) Routine 02/12/2018 4:56 PM CDT Uncontrolled type 2 diabetes mellitus without complication, 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RC) from Last 3 Months or Most Recently Relevant to Health Maintenance Results * XR Thoracic Spine 3 Views (02/17/2024 6:04 PM CDT) Anatomical Region Laterality Modality Spine, T-Spine Digital Radiogra phy 02/17/2024 6:04 PM CDT Narrative 02/17/2024 6:32 PM CDT EXAM: XR THORACIC SPINE 3 VIEWS LOCATION: [facility] DATE: 02/17/2024 INDICATION: Mid thoracic back pain, Pain in thoracic spine (HRC), PAIN COMPARISON: None. IMPRESSION: Normal vertebral body heights. No fractures. Minimal mid thoracic rightward curvature of less than 10 degrees. Mild mid and lower thoracic degenerative disc changes with chronic appearing endplate irregularities. Procedure Note Neil Arthur MD - 02/17/2024 EXAM: XR THORACIC SPINE 3 VIEWS LOCATION: [facility] DATE: 02/17/2024 INDICATION: Mid thoracic back pain, Pain in thoracic spine (HRC), PAIN COMPARISON: None. IMPRESSION: Normal vertebral body heights. No fractures. Minimal midthoracic rightward curvature of less than 10 degrees. Mild mid and lowerthoracic degenerative disc changes with chronic appearing endplateirregularities. Diana Yao APRN, MUSHROOM LABORER RAD GD * Creatinine / GFR (07/27/2019 5:06 PM BELT POLISHER) Creatinine 1.10 0.73 - 1.18 mg/dL 07/27/2019 8:51 PM BELT POLISHER [facility] GFR, Estimated >60 >60 mL/min/1.7 3m2 07/27/2019 8:51 PM [facility] GFR, Est If >60 >60 mL/min/1.7 3m2 07/27/2019 8:51 PM [facility] Blood Venipuncture / Unknown 07/27/2019 5:06 PM BELT POLISHER 07/27/2019 5:06 PM BELT POLISHER Johnie Farmer MD LAB_1 Performing Organization Address [facility]/ZIP Co de Phone Number [facility] [address] [place] [address], [facility] [phone] * (ABNORMAL) Microalbumin Urine Random (UMAR) (04/27/2019 6:26 PM BELT POLISHER) Albumin, Urine, Random 56.7 mg/L 04/27/2019 9:21 PM [facility] Creatinine, Urine, Random 150 >20 mg/dL 04/27/2019 9:21 PM [facility] Albumin/Creati nine Ratio, Urine, Random 38(H) <30 mg/g 04/27/2019 9:21 PM [facility] Urine,random 04/27/2019 6:26 PM BELT POLISHER 04/27/2019 6:26 PM BELT POLISHER Johnie Farmer MD LAB_1 Performing Organization Address [facility] de Phone Number [facility] [address] [place] [address], [facility] [phone] * Lipid Panel - LDLD If Trig [...] - 02/12/2018 8:47 PM CDT Performed at [facility], [address] [facility], [place] [address] CLIA number [id number] Dany Hirsch MD LAB_1 [facility] [address] [place] [address] from Last 3 Months or Most Recently Relevant to Health Maintenance Guarantor Name Account Type Relation to Patient Date of Phone Billing Address Alex Goodwin III Personal/Famil y Self 1975 [address] [place] [address] Dana Goodwine III Personal/Famil y Self 1975 [address] [place] [address] Dana Goodwine III Personal/Famil y Self 1975 [address] [place] [address] Dana Goodwine III Personal/Famil y Self 1975 [address] [place] [address] Dana Goodwine III Workers Comp Self 1975 [address] [place] [address] Anant Goodwinnie III Workers Comp Self 1975 [address] [place] [address] Alex Goodwin III Workers Comp Self 1975 [address] [place] [address] Advance Directives * Full Code (Latest Code Status on File) Date Activated Date Inactivated Comments 02/28/2018 10:40 PM 03/01/2018 7:00 PM * Full Code Date Activated Date Inactivated Comments 10/27/2011 11:11 AM 10/30/2011 3:43 PM * Full Code Date Activated Date Inactivated Comments 01/03/2010 12:56 AM 01/04/2010 1:26 PM Care Teams Manager Of Case Relationship Specialty [place] [address] [place] [address] PCP - General Family Practice 01/30/18
--- OUTSIDE RECORDS SUMMARY | 2024-03-16 07:12 | XMS_ITS | Encounter Summary ---
Author Organization [employer] Address [address] [place] [address] Care Team Providers Care Analytic Programmer Name Role Phone Johnie Farmer MD Primary Care Provider [phone] Encounter Details Date Type Department Care Team (Late st Contact Info) Description 09/26/2013 Outside Hospital External to [facility], Provider HISTORY PHYSICAL Social History Tobacco [...] R/O COVID19 04/18/2020 04/18/2020 04/19/2020 5:02 PM PULP MILL OPERATOR COVID19 04/18/2020 04/18/2020 05/09/2020 3:17 AM PULP MILL OPERATOR documented as of this encounter Care Teams Analytic Programmer Relationship Specialty [place] [address] [place] [address] PCP - General Family Practice 01/30/18 documented as of this encounter
--- OUTSIDE RECORDS SUMMARY | 2024-03-16 07:12 | XMS_ITS | Encounter Summary ---
Author Organization [employer] Address [address] [facility] [place] [address] Care Team Providers Care Fork Truck Driver Name Role Phone Clinic, [facility] Unavailable Jennifer Pond MD Primary Care Provider + [phone] [facility] Camilo [place] Primary Care Pro vider Dany Hirsch Primary Care Provider [phone] Johnie Farmer Primary Care Provider [phone] JobОлег bergeron MD Unavailable +[phone] Deven Schulte MD Unavailable [phone] Олег Kaiser MD Unavailable +[phone] Loretta Elizalde PA-C Unavailable [phone] Олег Kaiser MD Unavailable +[phone] Loretta Elizalde PA-C Primary Care Provider [phone] Deven Schulte MD Unavailable [phone] Dong Craft MD Unavailable [phone] Dong Craft MD Unavailable [phone] Grazyna Damian CLASS C DRIVER Unavailable [phone] Marlene White CHW Unavailable [phone] Mer Holguin TRAFFIC DIVISION COMMANDING OFFICER Unavailable [phone] Marlene White CHW Unavailable Raul Norris TRAFFIC DIVISION COMMANDING OFFICER Unavailable [phone] Encounter Details Date Type Department Care Team (Late Contact Info) Description 05/02/2015 [facility] [address] [place] [phone] Ruth Leigh, INGOT BUGGY OPERATOR Social History Tobacco Use Types Packs/Day Years [...] Info) Description 03/19/2024 7:00 AM CDT Lab [address] [address] 04/28/2024 7:30 AM CAT OPERATOR Office Visit [facility] [address] [place] [address] Loretta Elizalde PA-C [address] [place], [place] [address] 09/09/2024 7:00 AM CDT Lab [address] [address] 09/15/2024 8:30 AM CDT Virtual Visit [facility] [address] [place] [address] Dong Craft MD [address] [facility], [address] [place] [address] documented as of this encounter Visit Diagnoses Not on filedocumented in this encounter Additional Health Concerns Infection Onset Date Last Indicated Resolved Time Rule Out COVID-19 10/09/2019 10/09/2019 10/09/2019 9:36 PM CDT Rule Out COVID-19 11/20/2019 11/20/2019 11/21/2019 5:10 PM CDT Rule Out COVID-19 11/25/2019 11/25/2019 11/26/2019 4:41 PM CDT Rule Out COVID-19 04/18/2020 04/18/2020 04/18/2020 4:22 PM CAT OPERATOR COVID-19 04/18/2020 04/18/2020 05/09/2020 11:4 0 PM CAT OPERATOR documented as of this encounter Care Teams Fork Truck Driver Relationship Specialty Start Date End Date Jennifer Pond MD [address] [facility] [place] [address] PCP - General Internal Medicine 11/08/14 08/26/16 [facility] [address] [place] [address] PCP - General 08/27/16 10/26/16 Dany Hirsch [address] [place] [address] PCP - General Family Practice 10/27/16 01/29/18 Johnie Farmer [address] [place] [address] PCP - General Family Practice 01/30/18 09/24/22 Loretta Elizalde PA-C [address] [place] [address] PCP - General Family Medicine 09/25/[address] [address] 06/14/11 08/26/16 Олег Kaiser MD [address] [place], [place] [address] Urology 04/05/21 Deven Schulte MD [address] [place] [address] 612285 Assigned Surgical Provider 04/23/21 09/21/22 Олег Kaiser MD [address] [place] [address] Assigned Surgical Provider 04/16/21 04/22/21 Loretta Elizalde PA-C [address] [place], [place] 22336[address] Assigned PCP 09/22/22 Олег Kaiser MD [address] [place] [address] Assigned Surgical Provider 09/22/22 09/28/22 Deven Schulte MD [address] [place], [place] [address] Assigned Surgical Provider 09/29/22 10/19/22 Dong Craft MD [address] [place] [address] Hematology 10/09/22 Dong Craft MD [address] [place] [address] Assigned Cancer Care Provider 11/24/22 05/24/23 Grazyna Damian, CLASS C DRIVER [address] [address] Assigned Cancer Care Provider 05/25/23 Marlene White, W Community Health Worker Primary Care - CC 12/11/23 12/12/23 Mer Holguin, [facility] Lead Glost Tile Sorter Primary Care - CC 12/12/2312/15 Marlene White, [facility] Community Health Worker Primary Care - CC 12/16/23 02/19/24 Raul Norris, [facility] Clinic Glost Tile Sorter Primary Care - CC 12/16/23 02/19/24 documented as of this encounter
--- OUTSIDE RECORDS SUMMARY | 2024-03-16 07:12 | XMS_ITS | Encounter Summary ---
Author Organization [place] Address [address] [facility] [place] [address] Care Team Providers Care Polysomnographer Name Role Phone [facility] Unavailable Kate Bradley PA-C Primary Care Pro vider [facility]ia [facility] Primary Care P rovider Jennifer Pond MD Primary Care Provider + [phone] [facility] Camilo [place] Primary Care Pro vider Dany Hirsch Primary Care Provider Johnie Farmer Primary Care Provider JobОлег MD Unavailable +[phone] Deven Schulte MD Unavailable [phone] JobОлег bergeron MD Unavailable +[phone] Loretta Elizalde PA-C Unavailable [phone] JobОлег bergeron MD Unavailable +[phone] Loretta Elizalde PA-C Primary Care Provider [phone] Deven Schulte MD Unavailable [phone] Dong Craft MD Unavailable [phone] Dong Craft MD Unavailable [phone] Grazyna Damian CNP Unavailable [phone] Marlene White CHW Unavailable Mer Holguin ERECTION SHOP SUPERVISOR Unavailable Marlene White CHW Unavailable [phone] Raul Norris ERECTION SHOP SUPERVISOR Unavailable [phone] Reason for Visit * Reason Comments Medication Refill Encounter Details Date Type Department Care Team (Late st Contact Info) Description 07/28/2014 Refill [facility] [address] [place] [phone] Kate Bradley PA-C [facility] [address] [place], [place] [address] Medication Refill Social History Tobacco Use Types [...] Info) Description 03/19/2024 7:00 AM CDT Lab [place] [address] [place] [address] 04/28/2024 7:30 AM ARCHIVIST POLITICAL HISTORY Office Visit [facility] [address] [place] [address] Loretta Elizalde [place] [address] [place] [address] 09/09/2024 7:00 AM CDT Lab [place] [address] [place] [address] 09/15/2024 8:30 AM CDT Virtual Visit [facility] [address] [place] [address] Dong Craft MD [address] [facility], [address] [place] [address] documented as of this encounter Visit Diagnoses Not on filedocumented in this encounter Additional Health Concerns Infection Onset Date Last Indicated Resolved Time Rule Out COVID-19 10/09/2019 10/09/2019 10/09/2019 9:36 PM CDT Rule Out COVID-19 11/20/2019 11/20/2019 11/21/2019 5:10 PM CDT Rule Out COVID-19 11/25/2019 11/25/2019 11/26/2019 4:41 PM CDT Rule Out COVID-19 04/18/2020 04/18/2020 04/18/2020 4:22 PM ARCHIVIST POLITICAL HISTORY COVID-19 04/18/2020 04/18/2020 05/09/2020 11:4 0 PM ARCHIVIST POLITICAL HISTORY documented as of this encounter Care Teams Polysomnographer Relationship Specialty Start Date End Date Kate Bradley PA-C [address] [place] [address] PCP - General Family Practice 09/22/13 10/27/14 Clinic - Jaylen Vargas [facility] [address] [place] [address] PCP - General 10/28/14 11/07/14 [place] [address] [place] [address] [place] [address] PCP - General Internal Medicine 11/08/14 08/26/[address] [address] PCP - General 08/27/16 10/26/16 Dany Hirsch [address] [place] [address] PCP - General Family Practice 10/27/16 01/29/18 MarlenyJohnie [address] [place] [address] PCP - General Family Practice 01/30/18 09/24/22 Loretta Elizalde PA-C [address] [place], [place] 88[address] PCP - General Family Medicine 09/25/[address] [address] 06/14/11 08/26/16 Олег Kaiser MD [address] [place] [address] Urology 04/05/21 Deven Schulte MD [address] [place] [address] 915135 Assigned Surgical Provider 04/23/21 09/21/22 Олег Kaiser MD [address] [place] [address] Assigned Surgical Provider 04/16/21 04/22/21 Loretta Elizalde PA-C [address] [place] [address] Assigned PCP 09/22/22 Олег Kaiser MD [address] [place] [address] Assigned Surgical Provider 09/22/22 09/28/22 Deven Schulte MD [address] [place] [address] Assigned Surgical Provider 09/29/22 10/19/22 Dong Craft MD [address] [place] [address] MD Dalia 10/09/22 Dong Craft MD [address] [place] [address] Assigned Cancer Care Provider 11/24/22 05/24/23 Grazyna Damian CNP [address] [place] [address] Assigned Cancer Care Provider 05/25/23 Marlene White, [facility] Community Health Worker Primary Care - CC 12/11/23 12/12/23 Mer Holguin, [facility] Lead [employer] Primary Care - CC 12/12/2312/15 Marlene White, [facility] Community Health Worker Primary Care - CC 12/16/23 02/19/24 Raul Norris [facility] Clinic [employer] Primary Care - CC 12/16/23 02/19/24 documented as of this encounter
--- OUTSIDE RECORDS SUMMARY | 2024-03-16 07:12 | XMS_ITS | Encounter Summary ---
Author Organization [employer] Address [address] [place] [address] Care Team Providers Care Double Bass Player Name Role Phone MarlenyJohnie gale MD Primary Care Provider [phone] Reason for Referral * Consult/Transfer Care (Routine) - New Request Specialty Diagnoses / Procedures Referred By Contac t Referred To Contact Diagnoses Acute right-sided thoracic back pain (HRC) Diana Yao APRN, CNP [address] [place] [address] Referral ID Status Reason Start Date Expiration Date V isits Requested Visits Authorized [id number] New Request 02/17/2024 05/18/2025 1 1 Scheduling Instructions Your clinician has recommended an appointment with [facility] [place]. You can quickly make your appointment online at [facility]/schedule. You can also call [phone] for help scheduling your appointment. We suggest you call your health insurance company about your coverage and benefits for this appointment. Question Answer Appointment Urgency? Non-Urgent * Procedure/Equipment (Routine) - Incomplete Specialty Diagnoses / Procedures Referred By Contac t Referred To Contact Diagnoses Acute right-sided thoracic back pain (HRC) Procedures XR Thoracic Spine 3 Views Diana Yao APRN, MITOCHONDRIAL DISORDERS COUNSELOR [address] [place] [address] Referral ID Status Reason Start Date Expiration Date V isits Requested Visits Authorized [id number] Incomplete 02/17/2024 05/18/2025 1 1 Reason for Visit * Reason Comments BACK PAIN Encounter Details Date Type Department Care Team (Late st Contact Info) Description 02/17/2024 5:40 PM CDT Office Visit [facility] [place] [id number] [place] [address] [phone] Diana Yao APRN, CNP [address] [place], [place] [phone] Acute right-sided thoracic back pain (HRC) (Primary Dx) Social History Tobacco Use Types [...] on file documented as of this encounter Last Filed [...] Index - - documented in this encounter Patient Instructions * Patient Instructions* Diana Yao APRN, CNP - 02/17/2024 5:40 PM CDT You can take 1000 mg of tylenol or 600 mg of ibuprofen every 6 hours as needed for pain control. Donot take more than 4000 mg of tylenol of 2400 mg of ibuprofen in a 24 hour time span. documented in this encounter Progress Notes * Diana Yao APRN, CNP - 02/17/2024 5:40 PM CDT Images from the original note were not included. CC: BACK PAIN SUBJECTIVE: Alex Goodwin III is a 49 y.o.male who presents to Urgent Care for evaluation of mid thoracic back pain. He states was sneezing on Saturday, heard his back crack and had pain after that. He states painwith lifting of arms. ROS: Complete ROS was negative other than what was cited above. OBJECTIVE: Vital Signs: BP (!) 137/94 (BP Location: Left Arm, BP Cuff Size: Large) Pulse 76 Temp 97.7 ??F (36.5 ??C) (Oral) Resp 20 SpO2 100% . Physical Exam Vitals and nursing note reviewed. Musculoskeletal: Cervical back: Normal. Thoracic back: Spasms and tenderness present. Lumbar back: Normal. Back: Comments: Tenderness noted to mid thoracic. No midline tenderness. No bony step offs. Worse pain with pressure to the area. Neurological: Mental Status: He is alert. Labs: No results found for this or any previous visit (from the past 24 hour(s)). Imaging: IMPRESSION: Normal vertebral body heights. No fractures. Minimal mid thoracic rightward curvature of less than 10 degrees. Mild mid and lower thoracic degenerative disc changes with chronic appearingendplate irregularities. ASSESSMENT: Pt is a 49 y.o.male who presents with mid thoracic back pain. At this time, will get imaging to look for spinal deformity. Likely muscle related as worse with movement and pushing on the area. Ortho follow up as needed Plan noted below discussed at time of visit. PLAN: -Medrol Dosepak sent to pharmacy - 3 day course of muscle relaxer sent to pharmacy -[id number] Tylenol, ibuprofen, lidocaine patches to help with pain -follow up with Orthopedics as needed Diagnosis and Associated Orders ICD-10-CM 1. Acute right-sided thoracic back pain (HRC) M54.6 XR Thoracic Spine 3 Views Orthopaedic Consult Adult/Peds Patient Instructions You can take 1000 mg of tylenol or 600 mg of ibuprofen every 6 hours as needed for pain control. Donot take more than 4000 mg of tylenol of 2400 mg of ibuprofen in a 24 hour time span. Diana aYo APRN, NORBERT documented in this encounter Nursing Notes * Ciaran Hernandes MA - 02/17/2024 5:40 PM CDT Alex Goodwin III is a 49 y.o.male presents to the Urgent Care for BACK PAIN Symptoms began: 4 day(s) ago. Patient stated, on 02/13 he had a sneeze, heard a pop in his right side upper back. Back has been painful since. Symptoms are: gradually worsening. Do you have tingling/numbness sensation? No Do you have any weakness of leg or foot? No Do you have any new unsteady/walking difficulties? No Mechanism of injury: no known injury. Pain Scale: 7-8/10 Pain Quality: Aching Pain Frequency: constant Pain Radiating: No Is there a position that feels better? None Do you have fevers or sweats in last 2 weeks? No Have you had unexplained weight loss (>5lb/ mo)? No Do you have any new or worsening difficulty controlling urination? No Have you ever had a history of back surgery? No Have you ever had back pain before this current episode of pain? No Patient requests an excuse letter for work/school: No Ciaran Hernandes MA 02/17/2024, 5:36 PM documented in this encounter Plan of Treatment Scheduled Referrals Name Type Priority Associated Diagnoses Orde r Schedule Orthopaedic Consult Adult/Peds Referral Routine Acute right-sided thoracic back pain (HRC) Ordered: 02/17/2024 documented as of this encounter Results * XR Thoracic Spine 3 Views (02/17/2024 6:04 PM CDT) Anatomical Region Laterality Modality Spine, T-Spine Digital Radiogra phy 02/17/2024 6:04 PM CDT Narrative 02/17/2024 6:32 PM CDT EXAM: XR THORACIC SPINE 3 VIEWS LOCATION: [facility] DATE: 02/17/2024 INDICATION: Mid thoracic back pain, Pain in thoracic spine (HRC), PAIN COMPARISON: None. IMPRESSION: Normal vertebral body heights. No fractures. Minimal mid thoracic rightward curvature of less than 10 degrees. Mild mid and lower thoracic degenerative disc changes with chronic appearing endplate irregularities. Procedure Note Neil Arthur MD - 02/17/2024 EXAM: XR THORACIC SPINE 3 VIEWS LOCATION: [facility] DATE: 02/17/2024 INDICATION: Mid thoracic back pain, Pain in thoracic spine (HRC), PAIN COMPARISON: None. IMPRESSION: Normal vertebral body heights. No fractures. Minimal midthoracic rightward curvature of less than 10 degrees. Mild mid and lowerthoracic degenerative disc changes with chronic appearing endplateirregularities. Diana Yao CITY PLANT SUPERVISOR, MITOCHONDRIAL DISORDERS COUNSELOR RAD GD documented in this encounter Visit Diagnoses Diagnosis Acute right-sided thoracic back pain (HRC)- Primary Acute right-sided thoracic back pain (HRC) documented in this encounter Care Teams Double Bass Player Relationship Specialty [place] [address] [place] [address] PCP - General Family Practice 01/30/18 documented as of this encounter
--- OUTSIDE RECORDS SUMMARY | 2024-03-16 07:12 | XMS_ITS | Clinical Summary ---
Author Organization [facility] Address [address] [place] [address] Care Team Providers Care Regional Training Manager Name Role Phone Johnie Farmer Primary Care Provider [phone] Clinic, Not Listed Unavailable Unavailable Allergies No [...] S/P gastric bypass 06/25/2008 Overview (10/03/2018): ~2001, [facility], Dr Zhou? Social History Tobacco Use [...] 11/2018, 08/15/2018, Additional history exists COVID-19 Vaccine (2023-2 5 season) 2024 Influenza Vaccine (#1) 2024 8, 04/02/2017, 02/09/2016, Additional history exists Yearly Review of HCD 02/07/2024 09/30/2018 Zoster Vaccine (1 of 2) 02/07/2024 RSV Vaccines (1 - 1-dose 75+ series) 2049 Procedures Procedure Name Priority Date/Time Associated Diagnosis Comments HBA1C / EAG Routine 10/03/2018 6:46 AM CDT BASIC METAB PROFILE STAT 10/02/2018 1 :35 PM CDT from Last 3 Months or Most Recently Relevant to Health Maintenance Results * (ABNORMAL) Hgb A1c (Glycosolated Hgb) (10/03/2018 6:46 AM CDT) HBA1C (GLYCOSOLATED HGB) 8.2(H) <5.7 % 10/03/2018 12:22 PM CDT [facility] EAG (EST. AVERAGE GLUCOSE) 189(H) <117 mg/dL 10/03/2018 12:22 PM CDT [facility] Blood 10/03/2018 6:46 AM CDT 10/03/2018 7:16 AM CDT Peggy Caba MD CHEMISTRY ORDERABLE [facility] [address] [place] [address] * (ABNORMAL) Basic Metabolic Profile (10/02/2018 1:35 PM CDT) Sodium 141 136 - 145 mmol/L 10/02/2018 2:09 PM CDT [facility] Potassium 3.8 3.5 - 5.1 mmol/L 10/02/2018 2:09 PM CDT [facility] Chloride 110 98 - 112 mmol/L 10/02/2018 2:09 PM CDT [facility] Carbon Dioxide 24 21 - 32 mmol/L 10/02/2018 2:09 PM CDT [facility] BUN (Urea Nitro) 8 7 - 24 mg/dL 10/02/2018 2:09 PM T [facility] Creatinine 0.96 0.70 - 1.30 mg/dL 10/02/2018 2:09 PM T [facility] Est GFR (CKD-EPI) >60 >60 mL/min 10/02/2018 2:09 PM T [facility] EST GFR IF AM >60 >60 mL/min 10/02/2018 2:09 PM T [facility] Glucose 113(H) 74 - 106 mg/dL 10/02/2018 2:09 PM T [facility] Calcium, Serum 7.8(L) 8.5 - 10.1 mg/dL 10/02/2018 2:09 PM T [facility] Anion Gap 7.0 0.0 - 15.0 mmol/L 10/02/2018 2:09 PM [facility] Blood 10/02/2018 1:35 PM CDT 10/02/2018 1:45 PM CDT Linn Jesus PA-C CHEMISTRY ORDERABLE [facility] [address] [phone] from Last 3 Months or Most Recently Relevant to Health Maintenance Advance Directives For more information, please contact: [phone] * Full Code (Latest Code Status on File) Date Activated Date Inactivated Comments 10/02/2018 6:16 PM 10/03/2018 10:01 PM Question Answer Comments How was code status determined? Patient Care Teams Regional Training Manager Relationship Specialty Start Date End Date Johnie Farmer PCP - General Family Medicine 09/30/18 Clinic, Not Listed PCP - Primary Care Clinic 12/25/19
--- OUTSIDE RECORDS SUMMARY | 2024-03-16 07:12 | XMS_ITS | Clinical Summary ---
Author Organization [facility] Address [place], [place] [address] Care Team Providers Care Freight Representative Name Role Phone Leonard Maritza Primary Care Provider + Yaya Park MD [...] 30 tablet 0 04/30/2014 Active albuterol HFA (PRO-AIR,VENTOLIN,AL OVENTIL) 90 mcg/actuation inhaler Inhale 2 Puffs [...] Procedure Code(s): ? --- Professional --- ? 62049, Esophagogastroduodenoscopy, flexible, transoral; diagnostic, ? including collection of specimen(s) by brushing or washing, when ? performed (separate procedure) Diagnosis Code(s): ? --- Professional --- ? Z98.84, Bariatric surgery status ? R10.13, Epigastric pain CPT copyright 2016 [employer]. All rights reserved. The codes documented in this report are preliminary and upon asset management analyst review may be revised to meet current compliance requirements. MD Boaz Carrion Jr., MD 10/03/2018 11:34:49 AM Number of Addenda: 0 Note Initiated On: 10/03/2018 11:02 AM ? [address] ? [place] [address] Other Result Information Interface, [id number] In - 10/03/2018 11:34 AM CDT [facility] Patient Name: Alex Goodwin Procedure Date: [...] area pain Procedure Code(s): --- Professional --- 12509, Esophagogastroduodenoscopy, flexible, transoral; diagnostic, including collection of specimen(s) by brushing or washing, when performed (separate procedure) Diagnosis Code(s): --- Professional --- Z98.84, Bariatric surgery status R10.13, Epigastric pain CPT copyright 2016 [employer]. All rights reserved. The codes documented in this report are preliminary and upon asset management analyst review may be revised to meet current compliance requirements. MD Boaz Carrion Jr., MD 10/03/2018 11:34:49 AM Problem Noted Date Diagnosed Date S/P Laparoscopic Jarrett-en-Y g astric bypass 07/03/[address] Diaz Prince 12/18/2018 Altered mental status 07/03/2014 Alcohol dependency 04/29/2014 Alcohol intoxication 04/29/2014 Major depression, recurrent 09/26/2013 Overview (09/26/2013): H/o overdose attempt (2006), hospitalized at [facility]'s 2009 Marital or partner relational problem 09/26/2013 Overview (09/26/2013): H/o conflict with his Alcohol dependence in remission 09/26/2013 Overview (09/26/2013): Reports being sober since 12/2009, attending AA [...] T Respiratory Rate 20 06/06/2018 5:42 AM VALVE GRINDER Oxygen Saturation 98% 06/06/2018 6:00 AM VALVE GRINDER Inhaled Oxygen Concentration - - Weight 101.6 [...] 18+ 01/07/2020 01/06/2019, 02/04/2016 COVID-19 vaccine series (2023- season) 2024 03/28/2023, 11/04/2020, 10/14/2020 Influenza for age 50-64 02/07/2024 03/11/2014 Zoster (shingles) series for age 50+ (1 of 2) 02/07/2024 Hepatitis C screening for ag e 18-79 Completed 07/04/2005 Pneumococcal series for age 6-64 Aged Out No longer eligible b ased on patient's age to complete this topic Procedures Procedure Name Priority Date/Time Associated Diagnosis Comments EXPOSURE (BBF) ANTI HCV Timed 07/04/2005 2:15 AM VALVE GRINDER from Last 3 Months or Most Recently Relevant to Health Maintenance Results * PATIENT SOURCE ANTI HCV (07/04/2005 2:15 AM VALVE GRINDER) SOURCE ANTI HCV Non-reacti ve [facility] 07/04/2005 2:15 AM VALVE GRINDER 07/03/2005 10:00 PM VALVE GRINDER Narrative [facility] - 07/07/2005 1:49 PM VALVE GRINDER Testing Performed By [place], [place] Diaz Prince MD SEND OUTS [facility] [address] [place] [address] from Last 3 Months or Most Recently Relevant to Health Maintenance Advance Directives * Full Code (Latest Code Status on File) Date Activated Date Inactivated Comments 07/03/2014 4:23 AM 07/03/2014 5:24 PM * Full Code Date Activated Date Inactivated Comments 04/29/2014 11:19 AM 04/30/2014 4:13 PM * Full Code Date Activated Date Inactivated Comments 09/25/2013 9:03 PM 09/28/2013 6:39 PM Care Teams Freight Representative Relationship Specialty Start Date End [facility] [address] [place] [address] PCP - General 08/27/16 Yaya Park MD [address] [place] [address] Consulting Physician Surgery - General 01/14/[address] [place] [address] Registered Dietitian Quarantine Officer 01/06/19 Monique Encinas NP [address] [place] [address] Consulting Physician Nurse Practitioner 01/06/19
--- OUTSIDE RECORDS SUMMARY | 2024-03-16 07:12 | XMS_ITS | Encounter Summary ---
Author Organization [employer] Address [address] [place] [address] Care Team Providers Care Mingle Operator Name Role Phone Johnie Farmer MD Primary Care Provider [phone] Encounter Details Date Type Department Care Team [...] R/O COVID19 04/18/2020 04/18/2020 04/19/2020 5:02 PM DIGITAL RETOUCHER COVID19 04/18/2020 04/18/2020 05/09/2020 3:17 AM DIGITAL RETOUCHER documented as of this encounter Care Teams Mingle Operator Relationship Specialty [place] [address] [place] [address] PCP - General Family Practice 01/30/18 documented as of this encounter
--- OUTSIDE RECORDS SUMMARY | 2024-03-16 07:12 | XMS_ITS | Encounter Summary ---
Author Organization [facility] Address [address] [place] [address] Care Team Providers Care Radius Corner Machine Operator Name Role Phone Johnie Farmer MD Primary Care Provider [phone] Encounter Details Date Type Department Care Team (Late st Contact Info) Description 02/26/2024 E-Visit Dedicated Specialty Scheduling [address] [place] [address] Mychart, [place] [address] Social History Tobacco Use Types Packs/Day Years [...] on filedocumented in this encounter Care Teams Radius Corner Machine Operator Relationship Specialty [place] [address] [place] [address] PCP - General Family Practice 01/30/18 documented as of this encounter
--- OUTSIDE RECORDS SUMMARY | 2024-03-16 07:12 | XMS_ITS | Encounter Summary ---
Author Organization [facility] Address [address] [facility] [place] [address] Care Team Providers Care Microwave Technician Name Role Phone Clinic, [facility] Unavailable Jennifer Pond MD Primary Care Provider [phone] [facility] Camilo [place] Primary Care Pro vider Dany Hirsch Primary Care Provider [phone] Johnie Farmer Primary Care Provider [phone] JobОлег bergeron MD Unavailable +[phone] Deven Schulte MD Unavailable [phone] Олег Kaiser MD Unavailable +[phone] Loretta Elizalde PA-C Unavailable [phone] Олег Kaiser MD Unavailable [phone] Loretta Elizalde PA-C Primary Care Provider [phone] Deven Schulte MD Unavailable [phone] Dong Craft MD Unavailable [phone] Dong Craft MD Unavailable [phone] Grazyna Damian BOWLING PIN REFINISHER Unavailable [phone] Marlene White CHW Unavailable [phone] Mer Holguin OTHER WOOD PROCESSING MACHINE OPERATOR Unavailable [phone] Marlene White CHW Unavailable Raul Norris OTHER WOOD PROCESSING MACHINE OPERATOR Unavailable [phone] Encounter Details Date Type Department Care Team (Late st Contact Info) Description 03/24/2015 MyC Medical Advice [address] [place] [address] Vibha Orozco Social History Tobacco Use Types [...] 03/19/2024 7:00 AM CDT Lab [place] [address] [place] [address] 04/28/2024 7:30 AM EXERCISE SCIENTIST Office Visit [facility] [address] [place] [address] Loretta Elizalde [address] [address] [place], [place] [id number] 09/09/2024 7:00 AM CDT Lab [address] [address] 09/15/2024 8:30 AM CDT Virtual Visit [facility] [address] [place] [address] Dong Craft MD [address] [facility], [address] [place] [address] documented as of this encounter Visit Diagnoses Not on filedocumented in this encounter Additional Health Concerns Infection Onset Date Last Indicated Resolved Time Rule Out COVID-19 10/09/2019 10/09/2019 10/09/2019 9:36 PM CDT Rule Out COVID-19 11/20/2019 11/20/2019 11/21/2019 5:10 PM CDT Rule Out COVID-19 11/25/2019 11/25/2019 11/26/2019 4:41 PM CDT Rule Out COVID-19 04/18/2020 04/18/2020 04/18/2020 4:22 PM EXERCISE SCIENTIST COVID-19 04/18/2020 04/18/2020 05/09/2020 11:4 0 PM EXERCISE SCIENTIST documented as of this encounter Care Teams Microwave Technician Relationship Specialty Start Date End Date Jennifer Pond MD [address] [facility] [place] [address] PCP - General Internal Medicine 11/08/14 08/26/16 [facility] [address] [place] [address] PCP - General 08/27/16 10/26/16 Dany Hirsch [address] [place] [address] PCP - General Family Practice 10/27/16 01/29/18 Johnie Farmer [address] [place] [address] PCP - General Family Practice 01/30/18 09/24/22 Loretta Elizalde PA-C [address] [place] [address] PCP - General Family Medicine 09/25/22 [facility] [address] [place] [address] 06/14/11 08/26/16 Олег Kaiser MD [address] [place] [address] Urology 04/05/21 Deven Schulte MD [address] [place] [address] Assigned Surgical Provider 04/23/21 09/21/22 Олег Kaiser MD [address] [place] [address] Assigned Surgical Provider 04/16/21 04/22/21 Loretta Elizalde PA-C [address] [place], [place] [id number] Assigned PCP 09/22/22 Олег Kaiser MD [address] [place] [address] Assigned Surgical Provider 09/22/22 09/28/22 Deven Schulte MD [address] [place] [id number] Assigned Surgical Provider 09/29/22 10/19/22 Dong Craft MD [address] [place] [address] MD Gómez 10/09/22 Dong Craft MD [address] [place] [address] Assigned Cancer Care Provider 11/24/22 05/24/23 Grazyna Damian, NORBERT [address] [place] [address] Assigned Cancer Care Provider 05/25/23 Marlene White, [facility] Community Health Worker Primary Care - CC 12/11/23 12/12/23 Mer Holguin, [facility] Lead Smoke Jumper Supervisor Primary Care - CC 12/12/2312/15 Marlene White, [facility] Community Health Worker Primary Care - CC 12/16/23 02/19/24 Raul Norris, [facility] Clinic Smoke Jumper Supervisor Primary Care - CC 12/16/23 02/19/24 documented as of this encounter
--- OUTSIDE RECORDS SUMMARY | 2024-03-16 07:12 | XMS_ITS | Encounter Summary ---
Author Organization [facility] Address [address] [place] [address] Care Team Providers Care Chemist Name Role Phone Johnie Farmer MD Primary Care Provider [phone] Encounter Details Date Type Department Care Team [...] Progress Notes * Pascual Funes Provider - 04/03/2013 12:00 AM CST N EXPORT COORDINATOR documented in this encounter Plan of Treatment Not on file documented as of this encounter Visit Diagnoses Not on filedocumented in this encounter Additional Health Concerns Infection Onset Date Last Indicated Resolved Time R/O COVID19 04/18/2020 04/18/2020 04/19/2020 5:02 PM OCEAN EXPORT COORDINATOR COVID19 04/18/2020 04/18/2020 05/09/2020 3:17 AM OCEAN EXPORT COORDINATOR documented as of this encounter Care Teams Chemist Relationship Specialty [place] [address] [place] [address] PCP - General Family Practice 01/30/18 documented as of this encounter
--- OUTSIDE RECORDS SUMMARY | 2024-03-16 07:12 | XMS_ITS ---
Author Organization [facility] Address [address] [facility] [place] [address] Care Team Providers Care Welfare Specialist Name Role Phone Job, Олег Ramírez MD Unavailable [phone] Loretta Elizalde PA-C Unavailable [phone] Loretta Elizalde PA-C Primary Care Provider [phone] Dong Craft MD Unavailable [phone] Grazyna Damian CNP Unavailable [phone] Primary Care Care Coordination Status:Closed (Closed) Start date:12/11/2023 Enrollment date:12/12/2023 End date:02/19/2024 Close reason:Unable to reach patient Continued Care and Services Coordination
--- OUTSIDE RECORDS SUMMARY | 2024-03-16 07:13 | XMS_ITS | Encounter Summary ---
Author Organization [facility] Address [address] [place] [address] Care Team Providers Care Mannequin Sander And Finisher Name Role Phone Johnie Farmer MD Primary Care Provider [phone] Encounter Details Date Type Department Care Team [...] R/O COVID19 04/18/2020 04/18/2020 04/19/2020 5:02 PM E TAILER COVID19 04/18/2020 04/18/2020 05/09/2020 3:17 AM E TAILER documented as of this encounter Care Teams Mannequin Sander And Finisher Relationship Specialty [place] [address] [place] [address] PCP - General Family Practice 01/30/18 documented as of this encounter
--- OUTSIDE RECORDS SUMMARY | 2024-03-16 07:13 | XMS_ITS | Encounter Summary ---
Author Organization [facility] Address [address] [place] [address] Care Team Providers Care Training Generalist Name Role Phone Johnie Farmer MD Primary Care Provider [phone] Encounter Details Date Type Department Care Team [...] R/O COVID19 04/18/2020 04/18/2020 04/19/2020 5:02 PM MANAGING COGNITIVE ENGINEER COVID19 04/18/2020 04/18/2020 05/09/2020 3:17 AM MANAGING COGNITIVE ENGINEER documented as of this encounter Care Teams Training Generalist Relationship Specialty [place] [address] [place] [address] PCP - General Family Practice 01/30/18 documented as of this encounter
[2024-03-16] MEDS: LACTATED RINGERS 1000 ML 1,000 ML 100 ML IV (07:20)
--- NOTE | 2024-03-16 07:50 | W.PM.H&PU ---
History & Physical Update History & Physical Update H&P Reviewed and patient assessed: The following changes are noted below H&P Updates: Hg A1c from 01/2024 = 7.5 Great improvement with Ozempic and lifestyle changes, reportedly.
[2024-03-16] MEDS: MIDAZOLAM HCL 1 MG/ML inj IVP (08:37)
[2024-03-16] MEDS: fentaNYL 100 MCG/2 ML inj IVP (08:37)
--- NOTE | 2024-03-16 08:37 | W.ANESCHARGE ---
Anesthesia Charges Start Date/Time Anesthesia Start Date: 03/16/24 Anesthesia Start Time: 08:43 Stop Date/Time Anesthesia Stop Date: 03/16/24 Anesthesia Stop Time: 12:54
--- NOTE | 2024-03-16 08:42 | SUR.PREOP ---
TIME?OUT:?0836 PT/RN/MDA?VERIFICATION?OF?SURGICAL?SITE,?PROCEDURE,?AND?CONSENT OBTAINED?PRIOR?TO?INVASIVE?PROCEDURE.
[2024-03-16] MEDS: CEFAZOLIN 2 GM in 0.9 % SODIUM CHLORIDE Mini-bag 100 ML IVPB (09:04)
--- NOTE | 2024-03-16 09:40 | P.NB_ITS ---
Nerve Block Nerve Block Time Seen by Provider: 08:35 Date Seen: 03/16/24 Type of block requested by surgeon for post-operative analgesia: supraclavicular Side: left Time out performed: Yes Verification of patient name: Yes Verification of date of : Yes Site marking: site marked Name of person performing procedure: Omar Continuous monitoring Was continuous monitoring of O2 sat, B/P, cafeteria monitor, recorded every 15 minutes?: Yes Procedure Checklist: sterile prep, needles and gloves Ultrasound guided. Images saved: Yes Medications given in 5ml increments after negative aspiration: Marcaine %: 0.5 mL: 15 Needle gauge: 22 Patient tolerated procedure well: Yes Block Charges Block Charge (with Pro Fee): Brachial Plexus Use of Ultrasound Machine for Block: Yes- US Guidance/pain block
--- NOTE | 2024-03-16 09:41 | W.ANESCHARGE ---
Anesthesia Charges Start Date/Time Anesthesia Start Date: 03/16/24 Anesthesia Start Time: 08:43 Stop Date/Time Anesthesia Stop Date: 03/16/24 Anesthesia Stop Time: 12:54
[2024-03-16] MEDS: EPINEPHrine 1 MG in SODIUM CHLORIDE IRRIG SOLUTION 3,000 ML 9003 MG IRRIGATION ×7 (10:00→11:45)
[2024-03-16] MEDS: fentaNYL 100 MCG/2 ML inj 50 MCG IVP (13:17)
--- NOTE | 2024-03-16 13:27 | P.ORPRC_ITS ---
Procedure Note Date of procedure: 03/16/24 Procedure: PREOPERATIVE DIAGNOSES: 1. Left shoulder rotator cuff tear - full-thickness massive 3 tendon re-tear with significant retraction to the level of the glenoid POSTOPERATIVE DIAGNOSES: 1. Left shoulder rotator cuff tear - full-thickness massive 3 tendon (upper border subscapularis, full-thickness/full breadth supraspinatus and infraspinatus) re-tear with significant retraction to the level of the glenoid 2. Left shoulder poor rotator cuff tissue quality worthy of augmentation 3. Left shoulder adhesions within the subacromial space and hearing the rotator cuff tissue to the medial tissues and it is retracted state. 4. Left shoulder anterior and superior labral tearing 5. 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 Left shoulder remnant biceps stump 7. Left shoulder retained foreign body/suture NAME OF OPERATION: 1. Left shoulder arthroscopic rotator cuff re-repair of a massive full- thickness 3 tendon tear (23750) - * of note, 50% added time was needed to complete the surgery due to the increased complexity of the tear pattern, the revisions scenario, the retracted nature of the tendon, the significant adhesions within the subacromial space of this tendon, and the poor tissue quality warranting broader repair and more anchors. 2. Left shoulder arthroscopic decellularized cadaveric dermal tissue augmentation of rotator cuff repair (C1762) 3. Left shoulder arthroscopic anchor placement for soft tissue to bone approximation (C1713) 4. Left shoulder arthroscopic extensive glenohumeral debridement 5. Left shoulder arthroscopic foreign body removal (failed suture) SURGEON: Julio Henry MD CYLINDER WORKER: Tan Townsend PA-C. Of note, a skilled preschool assistant principal was critical for this case to aide in patient positioning, suture manipulation, arm positioning, instrument positioning, and closure. ANESTHESIA: General plus preoperative supraclavicular block. EBL: 25 mL IMPLANTS: Arthrex 4.75 mm BioComposite SwiveLock suture anchor (x1, standard; x4 knotless) Arthrex 2.6 mm knotless FiberTak RC (x1); decellularized cadaveric dermal tissue augmentation (cuffmend) COMPLICATIONS: None evident INDICATIONS: The patient is a pleasant, 49 year old male who underwent left shoulder rotator cuff repair in 2019. He did well for number of years. Unfortunately, has noted increasing pain, weakness, and dysfunction this left shoulder recently. Repeat imaging included an MRI which confirmed the clinical suspicion of rotator cuff retear. Given their findings, as well as the weakness and pain, and inadequate response to nonoperative management, recommendation was made for surgery. FINDINGS: Exam under anesthesia revealed stable shoulder with excellent range of motion. The diagnostic arthroscopy revealed grade 2-3 chondromalacia anterior humeral head and central anterior glenoid. The Subscapularis tendon was torn from its upper border with mild retraction. The previous suture was seen and removed. The long head of the biceps tendon was absent consistent with the previous biceps tenotomy. The superior rotator cuff tendon was found to be re-torn in a full-thickness, full breadth manner. The labrum was degeneratively frayed in the anterior and superior aspects. No loose bodies were identified within the pouch or subscapularis recess. PROCEDURE: Following a thorough discussion of risks, benefits, and alternatives, consent was obtained and the left shoulder was marked. The patient was brought to the operating room and placed supine on the operating table. Induction of anesthesia was completed after preoperative supraclavicular block was administered in preop holding. Appropriate time out was performed identifying proper patient, site, and procedure. 2 g IV Ancef was administered within 1 hour of incision preoperatively. The left upper extremity was prepped and draped in the appropriate sterile fashion using ChloraPrep prep. This was after the patient was positioned in the beach chair with their head in neutral alignment and all bony prominences well padded. The shoulder was insufflated with 20mL of normal saline via an 18g spinal needle from a posterior approach. An 11 blade skin incision allowed a blunt trochar to be inserted and diagnostic arthroscopy to be performed with the findings as noted above. An anterior portal was established with an outside in technique. This allowed the probe to be inserted and confirm the diagnostic arthroscopic findings. The shaver was then inserted and allowed debridement of the anterior and superior labrum, the biceps stump, the loose chondral tissue on the humeral head anteriorly, and the lesser tuberosity bone of the humerus. Following this, the upper border subscapularis was repaired after debriding the lesser tuberosity with the shaver and [place] cautery. Subscapularis was captured in horizontal mattress fashion with a fiber tape suture. The tails were brought to a single anchor in the lesser tuberosity with excellent reapproximation of the subscap tendon and good excursion/tension. Further inspection of the supraspinatus and infraspinatus rotator cuff was performed. This identified the tear as noted above. Again, the tear was retracted to the level of the glenoid or slightly medial. It was limited in its excursion initially. This required significant lysis of adhesions on both superficial and deep surface of the rotator cuff. It had retracted primarily medially but to some degree posteriorly as well. Approximately 45-60 minutes was spent mobilizing the tissue and performed a bursectomy to better evaluate the tissue ability to reapproximate to the greater tuberosity. Of note, the remnant sutures from the original repaired performed in 2020 5 were identified in multiple spots throughout the shoulder. These were able to be grasped, cut, and removed allowing us to remove this foreign body. With thorough tissue mobilization, eventually we were able to achieve appropriate tissue mobility but given the extensive tear of essentially the entire supraspinatus and infraspinatus, it was felt that 3 medial row anchors were necessary to broaden the footprint reapproximation of the tissue. Thus, knotless 4.75 mm SwiveLock suture anchors were placed in the anterior medial and posterior medial positions. A central medial anchor was utilized but this was a FiberTak RC knotless anchor. All the sutures were passed with a FiberLink through the respective portions of the rotator cuff. Tag stitches were also utilized to help with reapproximation and to better understand where to pass the sutures. Once the sutures were all passed, the FiberTape sutures from each of the 3 medial row anchors were passed into 2 separate lateral row anchors with excellent reapproximation of the rotator cuff to the greater tuberosity. However, given the revision nature of this rotator cuff repair and acknowledging that the tissue quality was not as healthy as original rotator cuff tissue, it was felt worthy of a decellularized cadaveric dermal tissue augmentation. As such, a larger passport was placed in the lateral shoulder and the passport divider utilized. The dermal allograft tissue was measured on the back table consistent with how we measured from anchor to anchor inside the shoulder joint. We utilized a 25 x 30 mm dermal allograft decellularized cadaveric tissue for rotator cuff augmentation. We grasped the knotless sutures from each of the 3 medial row anchors. These were passed through the dermal tissue along its medial row. After engaging the sutures via the knotless mechanism into themselves to ensure that the mechanism slid properly, we then past the lateral row knotless suture mechanisms through the lateral portion of dermal allograft as well. These mechanisms were also engaged in confirmed to be sliding properly. The dermal allograft tissue was then brought into the shoulder through this large passport as the sutures were cinched down. It layed immediately it on top of the rotator cuff repair so as to augment this tissue repair. The allograft tissue had 5 different points of fixation consistent with what we had measured. The shoulder was placed through range of motion and found to be stable. The rotator cuff was re-probed and found to be stable. Instruments were removed. Excess fluid was drained, closure performed with 4-0 Monocryl and Steri-Strips. Dressings were applied. Sling was applied. The patient was awoken from anesthesia and transferred to the PACU in stable condition. A skilled preschool assistant principal was critical for this case to aid in patient positioning, limb positioning, skill to manipulate arthroscopic instruments and camera, suture management, patient safety, and closure. * Again, 50% added time was needed to complete the surgery due to the increased complexity of the tear pattern, the revisions scenario, the retracted nature of the tendon, the significant adhesions within the subacromial space of this tendon, and the poor tissue quality warranting broader repair and more anchors. PLAN: 1. Elbow, forearm, wrist and digit range of motion of operative extremity as tolerated. 2. Encouraged ice. 3. He for pain as needed. 4. Sling at all times except for ROM and showering. 5. Follow up with PA visit in 1-2 weeks for wound check. Initiate physical therapy following that visit for passive range of motion at 5-6 weeks. Initiate active assisted range of motion at 8-9 weeks. May do pendulums now.
== END 2024-03-16 15:40 | disposition home or self-care (01) ==
LOC: OR 07:07
PROVIDERS: Visit Provider Orthopaedic Surgery Sports Medicine
PROC: (CPT 29805; principal; 2024-03-16 09:15)
DX: M75.122 Complete rotator cuff tear or rupture of left shoulder, not specified as traumatic (principal); M75.02 Adhesive capsulitis of left shoulder; S43.432A Superior glenoid labrum lesion of left shoulder, initial encounter; M94.212 Chondromalacia, left shoulder; T85.692A Other mechanical complication of permanent sutures, initial encounter; G89.18 Other acute postprocedural pain; E11.21 Type 2 diabetes mellitus with diabetic nephropathy; Z79.85 Long-term (current) use of injectable non-insulin antidiabetic drugs; J45.40 Moderate persistent asthma, uncomplicated; I10 Essential (primary) hypertension; D50.9 Iron deficiency anemia, unspecified; E66.9 Obesity, unspecified
CPT/HCPCS: 29827; 29823; 29819; 01630; 64415; 76942; 82962; C1713; J0171; J0330; J0665; J0690; J1100; J1171; J2250; J2405; J2704; J2710; J3010; J7120; L3670; Q4125

== ENCOUNTER 2024-05-28 15:30 | Outpatient (RCR) | payer OTHER, SELFPAY ==
--- NOTE | 2024-04-27 11:58 | PT.OPE ---
PT [place] [facility] Eval PT [facility] Out[facility] Eval Start: 04/21/24 16:23 Freq: Status: Active Protocol: Document 04/21/24 17:16 CJT (Rec: 04/21/24 17:18 BILLT [id number]) E-signed By Augustin Morales PT Physical Therapy Outpatient Evaluation Insurance Information Recert Due Date 07/20/24 Insurance Name [employer] Medical Diagnosis S/P L RCR Scope Revision, open cyst excision Treating Diagnosis Orthopedic after care L shoulder pain L shoulder stiffness Referring MD Henry Subjective Preferred Name Alex Subjective Pt presents for revision of L RCR (DOS: 03/16/24). First RCR was in 2019. Pt presents without his sling today. Reports he has not worn it in about a week and did not wear it at work today. Pt notes his pain was significant the first few weeks after surgery but has gotten much better the last week or so. Still taking Tylenol thrice daily for pain management. Has been performing pendulums at home. Pt notes he has returned to work last week at the [employer] because he was going stir crazy at home. Pt only sleeping several hours at a time currently, but notes this is getting better. 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 Several incisions do demonstrate thickened scar tissue Assessment Assessment/Impression Alex is a very pleasant 49 year old male who presents to our clinic for evaluation and treatment of L RCR revision. Alex came into our clinic today without his sling. I was very clear with him that he should wear his slings at all times with exception of showering and while performing his HEP. Pt gestured with his hands several times while explaining why he was not wearing his sling lifting his L shoulder into flexion and abduction. I was very clear with him that these are movements that he needs to avoid as he could re-tear his recent repair. Pt gave verbal understanding to this. Pts shoulder PROM is on track for typical RCR progression at this time. We reviewed his HEP and he gave verbal understanding to all exercises . The nature of the pts condition was explained and all questions were answered to the pts satisfaction. Skilled PT services are medically necessary to address deficits and return patient to highest level of function. Recommend physical therapy sessions 1-2/ week for 10-12 weeks. Pt agrees with this plan. Printout of HEP was given for I completion and pt gives verbal understanding of each exercise. Primary Functional Limitations QuickDASH: 43% disability Plan of Care Rehabilitation Potential Good Physical Therapy Goals STG - To be completed in 4 weeks: 1. Pt will demonstrate improved passive shoulder elevation by 20+ degrees to reduce risk of adhesive capsulitis. 2. Pt will report reduction in shoulder pain by factor of 2 so that they may sleep without waking due to pain while shifting position in the night . 3. Pt will report consistent and appropriate use of sling to protect repaired RCR muscles and reduce risk for rupture. LTG - To be completed in 10-12 weeks: 1. Pt to be I with HEP so that they may I manage progression of symptoms. 2. Pt will report ability to lay on L shoulder in bed without increase in pain so that they may sleep in preferred position to achieve better night's sleep. 3. Pt will demo full and pain free shoulder ROM and strength so that they may return to recreational exercise with their friends. Treatment Plan/Direct Interventions Dry Needling,Electrical Stimulation,Heat,Ice/Cold/ Vasopneumatic,Joint Mobilization,Manual Therapy, Neuromuscular Re-ed,Self-Care/ Home Management,Therapeutic Activities,Therapeutic Exercises,Ultrasound Frequency/Duration 1-2/week for 10-12 weeks Patient Will Be Discharged From Therapy Completion of LTG(s),Skills Plateau,Independent w/HEP, Independently Progressing Evaluation Billing Untimed Code Treatment Minutes 30 PT Eval No Charge No Complexity Low Certification Information Initial Certification Date 04/21/24 Ending Certification Date 07/20/24 Provider Signature Required Yes Provider Signature Shows Agreement With POC & Medical Necessity Physician NPI Number Write NPI# Here Physician Comment/Change : Physician Signature & Date Requested Please Sign/Date Here
--- OUTSIDE RECORDS SUMMARY | 2024-05-28 15:21 | XMS_ITS | Clinical Summary ---
Author Organization [place] Address [address] [facility] [place] [address] Care Team Providers Care Casing Cleaner Name Role Phone Олег Kaiser MD Unavailable [phone] Loretta Elizalde PA-C Unavailable [phone] Loretta Elizalde PA-C Primary Care Provider [phone] Dong Craft MD Unavailable [phone] Grazyna Damian CNP Unavailable [phone] Allergies Active Allergy Reactions Criticality Noted Date Comments Nsaids 06/09/2018 Gastric Bypass Medications albuterol (PROAIR HFA/PROVENTIL HFA/VENTOLIN HFA) 108 (90 Base) MCG/ACT inhalerIndicatio ns:Moderate persistent asthma without complication Inhale 1-2 puffs into the lungs every 4 hours as needed for shortness of breath or wheezing 18 g 5 11/06/19 24 Active olmesartan (BENICAR) 40 MG tabletIndication s:Hypertension goal BP (blood pressure) < 140/90 Take 1 tablet (40 mg) by mouth daily 90 tablet 3 12/11/19 24 Active metFORMIN (GLUCOPHAGE XR) 500 MG 24 hr tabletIndication s:Type 2 diabetes mellitus with diabetic nephropathy, 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) Take 2 tablets (1,000 mg) by mouth 2 times daily (with meals) 360 tablet 1 12/11/19 24 Active fluticasone-álvaro nterol (BREO ELLIPTA) 200-25 MCG/ACT inhalerIndicatio ns:Moderate persistent asthma without complication Inhale 1 puff into the lungs daily 60 each 5 12/11/19 24 Active amLODIPine (NORVASC) 5 MG tabletIndication s:Hypertension goal BP (blood pressure) < 140/90 Take 1 tablet (5 mg) by mouth daily 90 tablet 3 12/11/19 24 Active rosuvastatin (CRESTOR) 20 MG tabletIndication s:Hyperlipidemia LDL goal <70 Take 1 tablet (20 mg) by mouth daily 90 tablet 3 12/11/19 24 Active colchicine (COLCRYS) 0.6 MG tabletIndication s:Gout of right knee, unspecified cause, unspecified chronicity Take 1 tablet (0.6 mg) by mouth daily 90 tablet 12/11/19 24 Active Continuous Glucose Sensor (FREESTYLE SHIRLENE 3 SENSOR) MISCIndications: Type 2 diabetes mellitus with diabetic nephropathy, 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 Use 1 sensor every 14 days. Use to read blood sugars per air hole driller's instructions. 6 each 5 01/28/20 24 Active sildenafil (VIAGRA) 50 MG tabletIndication s:Erectile dysfunction, unspecified erectile dysfunction type Take 0.5-2 tablets (25-100 mg) by mouth daily as needed (erectile dysfunction). Start with 50 mg; reduce to 25 mg if side effects occur, can increase to maximum of 100 mg if tolerating well but incomplete response. Do not take with any nitrate medications. 30 tablet 3 01/28/20 24 Active allopurinol (ZYLOPRIM) 100 MG tabletIndication s:Gout of right knee, unspecified cause, unspecified chronicity Take 1 tablet (100 mg) by mouth daily. 90 tablet 1 01/29/20 24 Active Continuous Glucose Sensor (FREESTYLE SHIRLENE 3 PLUS SENSOR) MISCIndications: Type 2 diabetes mellitus with diabetic nephropathy, 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) Change every 15 days. 6 each 1 03/06/20 24 Active FLUoxetine (PROZAC) 20 MG capsuleIndicatio ns:Mild episode of recurrent major depressive disorder (H) Take 1 capsule (20 mg) by mouth daily. 5 capsule 03/19/20 24 Active Semaglutide, 1 MG/DOSE, (OZEMPIC, 1 MG/DOSE,) 4 MG/3ML penIndications:T ype 2 diabetes mellitus with diabetic nephropathy, 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) Inject 1 mg subcutaneously every 7 days. 3 mL 1 04/28/20 24 Active Active Problems Patient Care Coordination No te Formatting of this note migh t be different from the original. EMERGENCY CARE PLAN ACUTE CARE PLAN FOR THE FOLLOWING CONDITIONS: Chronic abdominal pain BRIEF HISTORY OF CONDITIONS: He has history of patricia-en-y gastric bypass surgery in 2006. Has been seen in emergency departments frequently in 2100-3862 for epigastric abdominal pain. Has chronic pain of 7/10 noted on December 2018 [facility] admission. He has had significant workup for this pain throughout this time. Patient has had multiple gallbladder US and CT abdomen/pelvis during this time that have been unremarkable. He had EGD in September [address] [facility] that was normal. He saw general surgery LUMBER TRIPPER through [facility] on 01/06/19 that thought some of [...] care provider CONTACT INFORMATION FOR PMD OR HOE RUNNER: Johnie Farmer MD [phone] PAIN CONTRACT CLINIC/PRESCRIBER: N/A RESTRICTED STATUS IF RESTRICTED TO A HOSPITAL OR PROVIDER: NA Problem Noted Date Diagnosed Date Upper GI bleed 10/01/2022 History of Patricia-en-Y gastric bypass 10/01/2022 B12 deficiency 09/13/2022 Iron deficiency anemia, unsp ecified iron deficiency anemia type 09/13/2022 Family history of early CAD 09/11/2022 Overview (09/11/2022): His dad, paternal uncles, and paternal grandfather all had heart attacks or strokes in their 40s-50s. Moderate persistent asthma 11/08/2014 Hypertension goal BP (blood pressure) < 140/90 0 11/08/2014 Type 2 diabetes mellitus wit h diabetic nephropathy, goal <7% 11/08/2014 Hyperlipidemia LDL goal <70 11/08/2014 Recurrent major depressive disorder, in partial remission 09/26/2013 09/11/2022 Overview (09/11/2022): H/o overdose attempt (2006), hospitalized at [facility]'s 2009 Vitamin D deficiency 05/16/2010 Gout of right knee, unspecif ied cause, unspecified chronicity 06/25/2008 S/P gastric bypass 06/25/2008 09/11/2022 Overview (09/11/2022): ~2001, [facility], Dr Zhou? Resolved Problems Problem [...] bariatric surgery 11/08/20142022 Depression with anxiety 11/08/201408/25 Overview (11/08/2014): [facility] be [facility] (has already done a phone consultation) - for counseling Living will, counseling/discussion 10/22/2013 09/11/2022 Overview (10/22/2013): Advance Care Planning: ACP Review and Resources [...] Alcohol dependence in remission 09/26/2013 3 09/11/2022 Overview (09/11/2022): Reports being sober since 12/2009, attending [facility] 09/22/2013 09/11/2022 Overview (12/25/2013): State Tier Level: NA Status: NA Turn Supervisor: See Letters for [facility] Care Plan Pernicious anemia 09/22/2013 09/11/2022 Insomnia 09/22/2013 09/11/2022 Anal fissure and fistula 04/21/2013 Perirectal abscess 04/20/2013 4 Abscess of anal and rectal regions 04/02/2013 09/22/2013 Rectal pain 04/02/2013 09/22/2013 Rectal mass 04/02/2013 09/22/2013 Rectal abscess 04/02/2013 09/22/2013 Asthma 11/14/2011 11/08/2014 Hyperlipidemia 02/10/2010 11/08/2014 Alcohol dependence 01/03/2010 3 Overview (11/08/2014): Went through treatment, sober since 2011. 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) (Primary Dx) 04/26/2024 Refill [facility] [id number] [place] [address] Loretta Elizalde PA-C Medication Refill 03/19/2024 MyC Medical Advice [address] [address] Loretta Elizalde PA-C Mild episode of recurrent major depressive disorder (H) 03/10/2024 Orders Only [address] [address] Loretta Elizalde PA-C Low serum testosterone (Primary Dx) 03/06/2024 10:30 AM CDT Office Visit [address] [address] Loretta Elizalde PA-C Preop general physical [...] dysfunction type; Obesity (BMI 30.0-34.9) 03/06/2024 Telephone [facility] [address] [place] [address] Loretta Elizalde PA-C Prior Authorization (Continuous Glucose Sensor (FREESTYLE SHIRLENE 3 PLUS SENSOR) [facility] [place] APPROVED) 03/06/2024 Refill [facility] [address] [place] [address] Loretta Elizalde PA-C Med Change Request 03/06/2024 Travel from Last 3 Months Immunizations Name Administration Dates Next Due COVID-19 12+ (Pfizer) 03/06/2024,03/28/2023 COVID-19 MONOVALENT 12+ (Pfizer) 11/04/2020,09/25 Flu, Unspecified 03/15/2019 S3p5-06 Novel Flu P-free 07/08/2009 HepB 04/11/2012,05/12/2010,02/09/2010 Hepatitis B, Adult 04/11/2012,05/12/2010, 010 Influenza (H1N1) 07/08/2009 Influenza (IIV3) PF 03/11/2014, 2,02/23/2011,2009 Influenza (prior to 2023) 02/09/2010 Influenza Vaccine 18-64 (Flublok) 03/28/2021 Influenza Vaccine >6 months,quad, PF 06/2022,04/10/2022,02/12/2018,2016,02/09/2016,03/11/2014 Influenza Vaccine Trivalent (FluBlok) 03/06/2024 Pneumococcal 20 valent Conju gate (Prevnar 20) [...] friends or re latives? Never 12/06/2023 Attends Holiness Services Not on file 12/05 Active Member of Clubs or Organizations Not on f ile 12/06/2023 Attends Club or Organization Meetings Not on rolando e 12/06/2023 Marital Status Not on file 12/06/2023 PHQ-2 Answer Date Recorded PHQ-2 Score 2 12/11/2023 [facility] - Occupational [...] you bought just not last and you didn t have money to get more? No 12/06/2023 Housing Stability Answer Date Recorded Do you have housing? (Autumn g is defined as stable permanent housing and does not include staying ouside in a car, in a tent, in an abandoned building, in an overnight nursing home, or couch-surfing.) No 12/06/2023 Are you [...] Assigned at Male 01/28/2024 9:34 AM CDT Legal Sex Male 4:41 AM LEGAL RESEARCH ANALYST Gender Identity Male 01/28/2024 9:34 AM CDT Sexual Orientation Straight 01/28/2024 9: 34 AM CDT Occupation Industry Job Start Date Job End Date Not on file Not on file Not on file Not on file Last Filed Vital Signs Vital Sign Reading Time Taken Comments Blood Pressure 138/88 03/06/2024 10:55 AM CDT Pulse 87 03/06/2024 10:27 AM CDT Temperature 36.4 C (97.6 F) 03/06/2024 10:27 AM CDT Respiratory Rate 16 03/06/2024 10:27 AM CDT Oxygen Saturation 99% 03/06/2024 10:27 AM CDT Inhaled Oxygen Concentration - - Weight 98.4 kg (217 lb) 03/06/2024 10:27 AM CDT Height 174 cm (5' 8.5) 03/06/2024 10:27 AM CDT Body Mass Index 32.51 03/06/2024 10:27 AM CDT Plan of Treatment Upcoming Encounters Date Type Department Care Team (Late st Contact Info) Description 09/09/2024 7:00 AM CDT Lab [facility] [address] [place] [phone] 09/15/2024 8:30 AM CDT Virtual Visit [facility] [address] [place] [address] Dong Craft MD [facility] [address] [facility], [address] [phone] Health Maintenance Due Date Last Done Comments [...] exists YEARLY PREVENTIVE VISIT 12/10/2024 12/11/2023, 09/11 URIC ACID 01/27/2025 01/28/2024, 11/24, 04/07/2021, Additional history exists BMP 03/06/2025 03/06/2024, 11/24, 10/04/2022, Additional history [...] 09/11/2022 HIV SCREENING Completed 09/11/2022 Pneumococcal Vaccine: 50+ Years Completed 03/28/2023, 09/11/2022, 07/18/2009 COVID-19 Vaccine Completed [...] achieve this goal: 1. [phone] to see if they have housing options for me in the month of December. 2. I will contact additional resources discussed as needed . These were emailed to me on 12/16/23. 3. I will let Care Coordination know if I run in to barriers with this goal. Medical Devices Implanted Type Area Import Export Coordinator Device Identifier Shelf Expiration Date Model / Serial / Lot Stent Ureteral Polaris Ultra [id number] - [id number] Implanted:Qty: 1 on 04/08/2021 by Олег Kaiser MD at [facility] Stent Right: Abdomen [employer] 01/06/2024 [id number] / / [id number] Procedures Procedure Name Priority Date/Time Associated Diagnosis Comments HEMOGLOBIN Routine 03/06/2024 11:13 AM CDT Preop general physical exam BASIC METABOLIC PANEL Routine 03/06/2024 11:13 AM CDT Preop general physical exam TESTOSTERONE TOTAL Routine 03/06/2024 11 :13 AM CDT Erectile dysfunction, unspecified erectile dysfunction type URIC ACID Add-On 01/28/2024 9:20 AM CDT Gout of right knee, unspecified cause, unspecified chronicity HEMOGLOBIN A1C Routine 01/28/2024 9:20 AM CDT Type 2 diabetes mellitus with diabetic nephropathy, 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) ALBUMIN RANDOM URINE QUANTITATIVE Routine 12/11/2023 6:45 [...] BLOOD STOOL STAT 06/23/2019 9: 59 AM LEGAL RESEARCH ANALYST ASTHMA ACTION PLAN Routine 10/13/2015 9: 27 [...] AM CDT 03/06/2024 11:13 AM CDT Loretta BEAR-C LAB - BLOOD ORDERABLES Shabnam l Result [facility] [address] [facility] [address] [facility], [address] [id number] * Hemoglobin (03/06/2024 11:13 AM CDT) Hemoglobin 14.5 13.3 - 17.7 g/dL 03/06/2024 11:15 AM CDT LABORATORY Blood BLOOD SPECIMEN / Unknown Venipuncture / Unknown 03/06/2024 11:13 AM CDT 03/06/2024 11:13 AM CDT us Loretta Elizalde PA-C LAB - BLOOD ORDERABLES Shabnam l Result LABORATORY [facility] [address] [facility] Lab (no room number, 1st floor of clinic) [place] [address], [facility] * (ABNORMAL) Basic metabolic panel (Ca, Cl, [...] 11:13 AM CDT 03/06/2024 11:13 AM CDT us Loretta Elizalde PA-C LAB - BLOOD ORDERABLES Shabnam l Result U LABORATORY [facility] [place] [facility] [address] [facility], [address] [place] [address] * Uric acid (01/28/2024 9:20 AM CDT) Uric Acid 5.7 3.4 - 7.0 mg/dL 01/28/2024 4:19 PM CDT U LABORATORY Blood BLOOD SPECIMEN / Unknown Venipuncture / Unknown 01/28/2024 9:20 AM CDT 01/28/2024 9:20 AM CDT Loretta Elizalde PA-C LAB - BLOOD ORDERABLES Shabnam l Result LABORATORY [facility] [place] [facility] [address] [facility], [address] [address] * (ABNORMAL) Hemoglobin A1c (01/28/2024 9:20 AM CDT) Hemoglobin A1C 7.5(H) 0.0 - 5.6 % 01/28/2024 9:34 AM CDT LABORATORY Comment: Normal <5.7% Prediabetes 5.7-6.4% Diabetes 6.5% or higher Note: Adopted from ADA consensus guidelines. Blood BLOOD SPECIMEN / Unknown Venipuncture / Unknown 01/28/2024 9:20 AM CDT 01/28/2024 9:20 AM CDT Loretta Elizalde PA-C LAB - BLOOD ORDERABLES Shabnam l Result LABORATORY [facility] [place] [facility] [address] [facility] Lab (no room number, 1st floor of clinic) [place] [address], [place] * Albumin Random Urine Quantitative with [...] control, and institution of therapy with an wjbfqeuonoe-gyzxbavthr-qezavi (ABNER) inhibitor (if the patient can tolerate it). Urine URINE SPECIMEN / Unknown Non-blood Collection / Unknown 12/11/2023 6:45 AM CDT 12/11/2023 7:33 AM CDT us Loretta Elizalde PA-C LAB - URINE ORDERABLES Shabnam l Result UU LABORATORY [facility] Core Lab [address] [facility], [address] [place] [address] * (ABNORMAL) Lipid panel reflex to direct LDL Fasting (12/04/2023 7:14 AM CDT) Pathologist [facility] Cholesterol 124 <200 mg/dL 12/04/2023 3:13 PM [...] - 12/04/2023 3:13 PM CDT Cholesterol Desirable: <200 mg/dL Triglycerides Normal: Less than 150 mg/dL Borderline High: 150-199 mg/dL High: 200-499 mg/dL Very High: Greater than or equal to 500 mg/dL Direct Measure HDL Female: Greater than or equal to 50 mg/dL Male: Greater than or equal to 40 mg/dL LDL Cholesterol Desirable: <100mg/dL Above Desirable: 100-129 mg/dL Borderline High: 130-159 mg/dL High: 160-189 mg/dL Very High: >= 190 mg/dL Non HDL Cholesterol Desirable: 130 mg/dL Above Desirable: 130-159 mg/dL Borderline High: 160-189 mg/dL High: 190-219 mg/dL Very High: Greater than or equal to 220 mg/dL Loretta Elizalde PA-C LAB - BLOOD ORDERABLES Shabnam l Result UU LABORATORY [facility] [place] [facility] [address] [facility], [address] [place] [address] Lab [address] Lab (1st floor, no room number) [place] [address] * Eye Exam - HIM Scan (11/20/2023 12:00 AM CDT) RETINOPATHY NEGATIVE 11/20/2023 Wandy Reeder - 11/20/2023 12:00 AM CDT EYE EXAM [employer] us Patient Reported OTHER Edited Result - Final * COLONOSCOPY (10/03/2022 12:08 PM CDT) COLONOSCOPY [facility] Patient Name: Alex Goodwin Procedure Date: 10/03/2022 12:08 PM Date of : 1975 Admit Type: Inpatient Age: 47 Gender: Male Attending MD: JD RHOADES MD, Total Sedation Time: 24 minutes Instrument Name: 226 - Adult Colonoscope Procedure: Colonoscopy Indications: Pain, GI bleed Providers: JD RHOADES MD (Doctor) Referring MD: Medicines: Midazolam 3 mg IV, Fentanyl 100 micrograms IV Complications: No immediate complications. Procedure: Pre-Anesthesia Assessment: [...] were verified by the physician in the endoscopy suite. Mental Status Examination: alert and oriented. Airway Examination: normal oropharyngeal airway and neck mobility. Respiratory Examination: clear to auscultation. CV Examination: normal. Prophylactic Antibiotics: The patient does not require prophylactic antibiotics. Prior Anticoagulants: The patient has taken no anticoagulant or antiplatelet agents. ASA Grade Assessment: II - A patient with mild systemic disease. After reviewing the risks and benefits, the patient was deemed in satisfactory condition to undergo the procedure. The anesthesia plan was to use moderate sedation / analgesia (conscious sedation). Immediately prior to administration of medications, the patient was re-assessed for adequacy to receive sedatives. The heart rate, respiratory rate, oxygen saturations, blood pressure, adequacy of pulmonary ventilation, and response to care were monitored throughout the procedure. The physical status of the patient was re-assessed after the procedure. After obtaining informed consent, the colonoscope was passed under direct vision. Throughout the procedure, the patient's blood pressure, pulse, and oxygen saturations were monitored continuously. The Olympus Adult Colonoscope, Model # CF-OV405G, [place] # 226, SN # [id number] was introduced through the anus and advanced to the cecum, identified by appendiceal orifice and ileocecal valve. The colonoscopy was performed without difficulty. The patient tolerated the procedure fairly well. The quality of the bowel preparation was good. Findings: The entire examined colon appeared normal on direct and retroflexion views. Impression: - The entire examined colon is normal on direct and retroflexion views. - No specimens collected. Recommendation: Repeat in ten years. Wonder about HIDA scan for the RUQ pain. Might need a small bowel pill camera study. ____ JD RHOADES MD 10/03/2022 1:46:50 PM I was physically present for the entire viewing portion of the exam. JD RHOADES MD Number of Addenda: 0 Note Initiated On: 10/03/2022 12:08 PM Procedure Date: 10/03/2022 12:08:54 PM Scope Withdrawal Time: 0 hours 6 minutes 14 seconds Total Procedure Duration: 0 hours 21 minutes 40 seconds Estimated Blood Loss: Scope In: 1:16:52 PM Scope Out: 1:38:32 PM RADIOLOGY RESULTS 10/03/2022 12:0 8 PM CDT Jd Rhoades MD PROCEDURES Final Resu lt RADIOLOGY RESULTS * HIV Antigen Antibody Combo (09/11/2022 8:48 AM CDT) HIV Antigen Antibody Combo Nonreactive Nonreactive 09/11/2022 5:57 PM CDT [facility] DO Comment:HIV-1 p24 Ag & HIV-1 /HIV-2 Ab Not Detected Blood BLOOD SPECIMEN / Unknown Venipuncture / Unknown 09/11/2022 8:48 AM CDT 09/11/2022 8:48 AM CDT Loretta BEAR-C LAB - BLOOD ORDERABLES Shabnam l Result Performing Organization Address [facility] Co de Phone Number [facility]PROT/ENDO [facility]/Prot/Endo [address] [facility], [address] [phone] * Hepatitis C Screen Reflex to HCV [...] established for newborns, infants, and children. Loretta BEAR-C LAB - BLOOD ORDERABLES Shabnam l Result [facility]PROT/ENDO [facility]/Prot/Endo [address] [facility] [address] [facility], [address] [phone] * Stool: occult blood (06/23/2019 9:59 AM LEGAL RESEARCH ANALYST) Occult Blood Negative NEG^Negati ve 06/23/2019 10:11 AM LEGAL RESEARCH ANALYST [facility] Comment: Called to RUTH PRITCHETT IN ERA @ 1010 ON 06/23/19, NB Stool specimen (specimen) 06/23/2019 9:59 AM LEGAL RESEARCH ANALYST 06/23/2019 10:05 AM LEGAL RESEARCH ANALYST us Destinee Graham DO LAB - STOOLS ORDERABLES Ed ited Result - Final [facility] [address] [place] [address], [facility] [phone] from Last 3 Months or Most Recently Relevant to Health Maintenance Additional Health Concerns Active Problems Noted Date Diagnosed Date SDOH LACK OF STABLE HOUSING 12/16/2023 Insurance [employer] [place] [address] [employer] [place] [address] Advance Directives For more information, please contact: [phone] * Full Code (Latest Code Status on [...] with patie nt/legal decision maker Care Teams Casing Cleaner Relationship Specialty Start Date End Date Loretta Elizalde PA-C [address] [place] [address] PCP - General Family Medicine 09/25/22 Олег Kaiser MD [address] [place] [address] Urology 04/05/21 Loretta Elizalde PA-C [address] [place] [address] Assigned PCP 09/22/22 Dong Craft MD [address] [place] [address] [facility] 10/09/22 Grazyna Damian, RAW JUICE WEIGHER [address] [place] [id number] Assigned Cancer Care Provider 05/25/23
--- OUTSIDE RECORDS SUMMARY | 2024-05-28 15:21 | XMS_ITS | Referral Summary ---
Author Organization [facility] Address [address] [place] [address] Care Team Providers Care Drill Press Operator Numerical Control Name Role Phone Johnie Farmer Primary Care Provider [phone] Clinic, Not Listed Unavailable Unavailable Allergies No known active allergies Medications ondansetron (ZOFRAN) 4 mg oral ODTIndications:N on-intractable vomiting with nausea, unspecified vomiting type Dissolve 1-2 tablets (4-8 mg) in mouth every 8 (eight) hours as needed for nausea. 8 tablet 9 Active amLODIPine (NORVASC) 10 mg oral tablet Take 1 tablet (10 mg) by mouth once daily. 0 9 Active acetaminophen (TYLENOL) 500 mg oral tablet Take 2 tablets (1,000 mg) by mouth three times a day. 9 Active lidocaine 4 % Top patch Apply 3 patches to skin once daily. to painful tender area 6 patch 9 Active lisinopril (PRINIVIL) 20 mg oral tablet Take 1 tablet (20 mg) by mouth at bedtime. 90 tablet 9 Active metFORMIN (GLUCOPHAGE) 500 mg oral tablet Take 2 tablets (1,000 mg) by mouth twice a day with breakfast and dinner. 180 tablet 9 Active pantoprazole (PROTONIX) 20 mg oral delayed release tabletIndication s:GERD Take 1 tablet (20 mg) by mouth once daily Indications: GERD. 0 9 Active sertraline (ZOLOFT) 100 mg oral tablet Take 1 tablet (100 mg) by mouth once daily. 05/10/201 9 Active HYDROcodone-acet aminophen (NORCO) 5-325 mg oral tablet Take 1 tablet by mouth every six (6) to eight (8) hours as needed (severe abdominal wall pain). 8 tablet 10/03/2018 3:58 PM CDT 9 Active Active Problems Problem Noted Date Diagnosed Date Abdominal wall pain in epigastric region 019 Epigastric pain 10/02/2018 Microcytic anemia 09/05/2017 H/O bariatric surgery 11/08/2014 Hypertension 03/11/2014 Pernicious anemia 09/22/2013 S/P gastric bypass 06/25/2008 Overview (10/03/2018): ~2001, [facility], Dr Zhou? Social History Tobacco Use Types Packs/Day Years Used Date Smoking Tobacco: Never Smokeless Tobacco: Never Alcohol Use Standard Drinks/Week Comments Not Currently 0 (1 standard drink = 0.6 oz pur e alcohol) Sex and Gender Information Value Date Recorded Sex Assigned at Not on file Legal Sex Male 2:06 PM CDT Gender Identity Not on file Sexual Orientation Not on file Last Filed Vital Signs Vital Sign Reading Time Taken Comments Blood Pressure 161/102 12/25/2019 5:16 PM CDT Pulse 111 12/25/2019 5:16 PM CDT Temperature 37.1 C (98.7 F) 12/25/2019 5:16 PM CDT Respiratory Rate 18 12/25/2019 5:16 PM CDT [...] HGB) 8.2(H) <5.7 % 10/03/2018 12:22 PM T [facility] EAG (EST. AVERAGE GLUCOSE) 189(H) <117 mg/dL 10/03/2018 12:22 PM [facility] Blood 10/03/2018 6:46 AM CDT 10/03/2018 7:16 AM CDT us Peggy Caba MD CHEMISTRY ORDERABLE Final Res ult [facility] [address] [place] [address] * (ABNORMAL) Basic Metabolic Profile (10/02/2018 1:35 PM CDT) Pathologist [facility] Sodium 141 136 - 145 mmol/L 10/02/2018 2:09 PM [facility] Potassium 3.8 3.5 - 5.1 mmol/L 10/02/2018 2:09 PM [facility] Chloride 110 98 - 112 mmol/L 10/02/2018 2:09 PM [facility] Carbon Dioxide 24 21 - 32 mmol/L 10/02/2018 2:09 PM [facility] BUN (Urea Nitro) 8 7 - 24 mg/dL 10/02/2018 2:09 PM [facility] Creatinine 0.96 0.70 - 1.30 mg/dL 10/02/2018 2:09 PM [facility] Est GFR (CKD-EPI) >60 >60 mL/min 10/02/2018 2:09 PM [facility] EST GFR IF AM >60 >60 mL/min 10/02/2018 2:09 PM [facility] Glucose 113(H) 74 - 106 mg/dL 10/02/2018 2:09 PM [facility] Calcium, Serum 7.8(L) 8.5 - 10.1 mg/dL 10/02/2018 2:09 PM [facility] Anion Gap 7.0 0.0 - 15.0 mmol/L 10/02/2018 2:09 PM CDT [facility] Blood 10/02/2018 1:35 PM CDT 10/02/2018 1:45 PM CDT us Linn Jesus PA-C CHEMISTRY ORDERABLE Final Re sult [facility] [address] [place] [address] from Last 3 Months or Most Recently Relevant to Health Maintenance Advance Directives For more information, please contact: [phone] * Full Code (Latest Code Status on File) Date Activated Date Inactivated Comments 10/02/2018 6:16 PM 10/03/2018 10:01 PM Question Answer Comments How was code status determined? Patient Care Teams Drill Press Operator Numerical Control Relationship Specialty Start Date End Date Johnie Farmer PCP - General Family Medicine 09/30/18 Clinic, Not Listed PCP - Primary Care Clinic 12/25/19
--- OUTSIDE RECORDS SUMMARY | 2024-05-28 15:21 | XMS_ITS | Clinical Summary ---
Author Organization [facility] Address [address] [place] [address] Care Team Providers Care Automatic Pilot Mechanic Name Role Phone Johnie Farmer Primary Care Provider [phone] Clinic, Not Listed Unavailable Unavailable Allergies No [...] S/P gastric bypass 06/25/2008 Overview (10/03/2018): ~2001, [facility], Dr Zhou? Social History Tobacco Use Types [...] 11/2018, 08/15/2018, Additional history exists COVID-19 Vaccine (1 - 2023-2 5 season) 2024 Influenza Vaccine (#1) 2024 [...] 8.2(H) <5.7 % 10/03/2018 12:22 PM CDT [facility] EAG (EST. AVERAGE GLUCOSE) 189(H) <117 mg/dL 10/03/2018 12:22 PM CDT [facility] Blood 10/03/2018 6:46 AM CDT 10/03/2018 7:16 AM CDT us Peggy Caba MD CHEMISTRY ORDERABLE Final Res ult [facility] [address] [address] * (ABNORMAL) Basic Metabolic Profile (10/02/2018 1:35 PM CDT) Sodium 141 136 - 145 mmol/L 10/02/2018 2:09 PM CDT [facility] Potassium 3.8 3.5 - 5.1 mmol/L 10/02/2018 2:09 PM CDT [facility] Chloride 110 98 - 112 mmol/L 10/02/2018 2:09 PM T [facility] Carbon Dioxide 24 21 - 32 mmol/L 10/02/2018 2:09 PM T [facility] BUN (Urea Nitro) 8 7 - 24 mg/dL 10/02/2018 2:09 PM [facility] Creatinine 0.96 0.70 - 1.30 mg/dL 10/02/2018 2:09 PM T [facility] Est GFR (CKD-EPI) >60 >60 mL/min 10/02/2018 2:09 PM T [facility] EST GFR IF AM >60 >60 mL/min 10/02/2018 2:09 PM T [facility] Glucose 113(H) 74 - 106 mg/dL 10/02/2018 2:09 PM [facility] Calcium, Serum 7.8(L) 8.5 - 10.1 mg/dL 10/02/2018 2:09 PM T [facility] Anion Gap 7.0 0.0 - 15.0 mmol/L 10/02/2018 2:09 PM [facility] Blood 10/02/2018 1:35 PM CDT 10/02/2018 1:45 PM CDT us Linn Jesus PA-C CHEMISTRY ORDERABLE Final Re sult [facility] [address] [place], [place] [id number] from Last 3 Months or Most Recently Relevant to Health Maintenance Advance Directives For more information, please contact: [phone] * Full Code (Latest Code Status on File) Date Activated Date Inactivated Comments 10/02/2018 6:16 PM 10/03/2018 10:01 PM Question Answer Comments How was code status determined? Patient Care Teams Automatic Pilot Mechanic Relationship Specialty Start Date End Date Johnie Farmer PCP - General Family Medicine 09/30/18 Clinic, Not Listed PCP - Primary Care Clinic 12/25/19
--- OUTSIDE RECORDS SUMMARY | 2024-05-28 15:22 | XMS_ITS | Encounter Summary ---
Author Organization [place] Address [address] [place] [address] Care Team Providers Care State Archivist Name Role Phone Clinic, [facility] Unavailable Jennifer Pond MD Primary Care Provider + [phone] [facility] Camilo [place] Primary Care Pro vider Dany Hirsch Primary Care Provider [phone] Johnie Farmer Primary Care Provider [phone] JobОлег bergeron MD Unavailable +[phone] Deven Schulte MD Unavailable [phone] Олег Kaiser MD Unavailable +[phone] Loretta Elizalde PA-C Unavailable [phone] Олег Kaiser MD Unavailable +[phone] Loretta Elizalde PA-C Primary Care Provider [phone] Deven Schulte MD Unavailable [phone] Dong Craft MD Unavailable [phone] Dong Craft MD Unavailable [phone] Grazyna Damian STATISTICAL ANALYST Unavailable [phone] Marlene White CHW Unavailable [phone] Mer Holguin ALLERGIST/IMMUNOLOGIST PHYSICIAN Unavailable [phone] Marlene White CHW Unavailable Raul Norris ALLERGIST/IMMUNOLOGIST PHYSICIAN Unavailable [phone] Encounter Details Date Type Department Care Team (Late Contact Info) Description 10/13/2015 MyC Medical Advice [address] [place] [phone] Ruth Leigh, HOSPICE VOLUNTEER COORDINATOR Social History Tobacco Use Types Packs/Day Years Used Date Smoking Tobacco: Never Smokeless Tobacco: Never Alcohol Use Standard Drinks/Week Comments No 0 (1 standard drink = 0.6 oz pure alcohol) 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 Sex and Gender Information Value Date Recorded Sex Assigned at Male 01/28/2024 9:34 AM CDT Legal Sex Male 4:41 AM BUMPER OPERATOR Gender Identity Male 01/28/2024 9:34 AM CDT Sexual Orientation Straight 01/28/2024 9: 34 AM CDT Occupation Industry Job Start Date Job End Date Not on file Not on file Not on file Not on file documented as of this encounter Plan of Treatment Upcoming Encounters Date Type Department Care Team (Late st Contact Info) Description 09/09/2024 7:00 AM CDT Lab [facility] [address] [place] [address] 09/15/2024 8:30 AM CDT Virtual Visit [facility] [address] [place] [phone] Dong Craft MD [facility] [address], [address] [address] documented as of this encounter Visit Diagnoses Not on filedocumented in this encounter Additional Health Concerns Infection Onset Date Last Indicated Resolved Time Rule Out COVID-19 10/09/2019 10/09/2019 10/09/2019 9:36 PM CDT Rule Out COVID-19 11/20/2019 11/20/2019 11/21/2019 5:10 PM CDT Rule Out COVID-19 11/25/2019 11/25/2019 11/26/2019 4:41 PM CDT Rule Out COVID-19 04/18/2020 04/18/2020 04/18/2020 4:22 PM BUMPER OPERATOR COVID-19 04/18/2020 04/18/2020 05/09/2020 11:4 0 PM BUMPER OPERATOR documented as of this encounter Care Teams State Archivist Relationship Specialty Start Date End Date Jennifer Pond MD [address] [place] [address] PCP - General Internal Medicine 11/08/14 08/26/16 [facility] [address] [place] [address] PCP - General 08/27/16 10/26/16 Dany Hirsch [address] [place] [address] PCP - General Family Practice 10/27/16 01/29/18 Johnie Farmer [address] [place] [address] PCP - General Family Practice 01/30/18 09/24/22 Loretta Elizalde PA-C [address] [place] [address] PCP - General Family Medicine 09/25/22 [facility] [address] [place] [address] 06/14/11 08/26/16 Олег Kaiser MD [address] [place], [place] [phone] Urology 04/05/21 Deven Schulte MD [address] [place] [address] [id number] Assigned Surgical Provider 04/23/21 09/21/22 Олег Kaiser MD [address] [place] [address] 749125 Assigned Surgical Provider 04/16/21 04/22/21 Loretta Elizalde PA-C [address] [place] [address] Assigned PCP 09/22/22 Олег Kaiser MD [address] [place] [address] 065635 Assigned Surgical Provider 09/22/22 09/28/22 Deven Schulte MD [address] [place] [address] 684485 Assigned Surgical Provider 09/29/22 10/19/22 Dong Craft MD [address] [place] [address] 112775 MD Gómez 10/09/22 Dong Craft MD [address] [place] [address] 016764 Assigned Cancer Care Provider 11/24/22 05/24/23 Grazyna Damian CNP [address] [place] [address] [id number] Assigned Cancer Care Provider 05/25/23 Marlene White, W Community Health Worker Primary Care - CC 12/11/23 12/12/23 Mer Holguin, ALLERGIST/IMMUNOLOGIST PHYSICIAN Lead Rubber Tile Floor Layer Primary Care - CC 12/12/2312/15 Marlene White, W Community Health Worker Primary Care - CC 12/16/23 02/19/24 Raul Norris LSW Clinic Rubber Tile Floor Layer Primary Care - CC 12/16/23 02/19/24 documented as of this encounter
--- OUTSIDE RECORDS SUMMARY | 2024-05-28 15:22 | XMS_ITS | Encounter Summary ---
Author Organization [place] Address [address] [facility] [place] [address] Care Team Providers Care Pulper Tender Name Role Phone Олег Kaiser MD Unavailable [phone] Loretta Elizalde PA-C Unavailable [phone] Loretta Elizalde PA-C Primary Care Provider [phone] Dong Craft MD Unavailable [phone] Dong Craft MD Unavailable [phone] Grazyna Damian VMWARE CONSULTANT Unavailable [phone] Marlene White CHW Unavailable [phone] Mre Holguin GUT DROPPER Unavailable [phone] Marlene White CHW Unavailable Raul Norris GUT DROPPER Unavailable [phone] Encounter Details Date Type Department Care Team (Late st Contact Info) Description 01/07/2023 [facility] [place] [address] [address] Hallie Maria Social History Tobacco [...] AM CDT Legal Sex Male 4:41 AM PUBLIC WELFARE DIRECTOR Gender Identity Male 01/28/2024 9:34 AM CDT Sexual Orientation Straight 01/28/2024 9: 34 AM CDT Occupation Industry Job Start Date Job End Date Not on file Not on file Not on file Not on file COVID-19 Exposure Response Date Recorded In the last 10 days, have yo u been in contact with someone who was confirmed or suspected to have Coronavirus/COVID-19? No / Unsure 12/12/2022 2:30 PM CDT documented as of this encounter Plan of Treatment Upcoming Encounters Date Type Department Care Team (Late st Contact Info) Description 09/09/2024 7:00 AM CDT Lab [facility] [address] [place] [phone] 09/15/2024 8:30 AM CDT Virtual Visit [facility] [address] [place] [phone] Dong Craft MD [address] [place] [address] documented as of this encounter Visit Diagnoses Not on filedocumented in this encounter Additional Health Concerns Assessment Noted Time PHQ-9 Depression Total Score: 2 09/12/19 23 7:51 AM CDT documented as of this encounter Care Teams Pulper Tender Relationship Specialty Start Date End Date Loretta Elizalde PA-C [address] [place], [place] [phone] PCP - General Family Medicine 09/25/22 Олег Kaiser MD [address] [place] [address] Urology 04/05/21 Loretta Elizalde PA-C [address] [place] [address] Assigned PCP 09/22/22 Dong Craft MD [address] [place] [address] [place] [address] Hematology 10/09/22 Dong Craft MD [address] [place] [address] Assigned Cancer Care Provider 11/24/22 05/24/23 Grazyna Damian CNP [address] [place] [address] [facility] [address] [place] [address] Assigned Cancer Care Provider 05/25/23 Marlene White, [facility] Community Health Worker Primary Care - CC 12/11/23 Mer Holguin, [facility] Lead Bagger Meat Primary Care - CC 12/12/2312/15 Marlene White, [facility] Community Health Worker Primary Care - CC 12/16/23 Raul Norris, [facility] Clinic Bagger Meat Primary Care - CC 12/16/23 documented as of this encounter
--- OUTSIDE RECORDS SUMMARY | 2024-05-28 15:22 | XMS_ITS | Encounter Summary ---
Author Organization [place] Address [address] [place] [address] Care Team Providers Care Mass Communications Professor Name Role Phone Олег Kaiser MD Unavailable [phone] Loretta Elizalde PA-C Unavailable [phone] Loretta Elizalde PA-C Primary Care Provider [phone] Dong Craft MD Unavailable [phone] Dong Craft MD Unavailable [phone] Grazyna Damian SOCIAL WELFARE ADMINISTRATOR Unavailable [phone] Marlene White CHW Unavailable [phone] Mer Holguin CUSTOMER CARE AGENT Unavailable [phone] Marlene White CHW Unavailable Raul Norris CUSTOMER CARE AGENT Unavailable [phone] Encounter Details Date Type Department Care Team (Late st Contact Info) Description 05/14/2023 [facility] [address] [place] [address] P[place]ual a[place]ban Social History Tobacco Use Types Packs/Day Years [...] AM CDT Legal Sex Male 4:41 AM LAB ASST Gender Identity Male 01/28/2024 9:34 AM CDT Sexual Orientation Straight 01/28/2024 9: 34 AM CDT Occupation Industry Job Start Date Job End Date Not on file Not on file Not on file Not on file documented as of this encounter Plan of Treatment Upcoming Encounters Date Type Department Care Team (Late st Contact Info) Description 09/09/2024 7:00 AM CDT Lab [facility] [address] [place] [address] 09/15/2024 8:30 AM CDT Virtual Visit [facility] [address] [place] [phone] Dong Craft MD [facility] [address] [address] documented as of this encounter Visit Diagnoses Not on filedocumented in this encounter Additional Health Concerns Assessment Noted Time PHQ-9 Depression Total Score: 2 09/12/19 7:51 AM CDT documented as of this encounter Care Teams Mass Communications Professor Relationship Specialty Start Date End Date Loretta Elizalde PA-C [address] [place] [address] PCP - General Family Medicine 09/25/22 Олег Kaiser MD [address] [place] [address] [phone] Urology 04/05/21 Loretta Elizalde PA-C [address] [place] [address] Assigned PCP 09/22/22 Dong Craft MD [address] [place] [address] Hematology 10/09/22 Dong Craft MD [address] [place], [place] 2[address] Assigned Cancer Care Provider 11/24/22 05/24/23 Grazyna Damian CNP [address] [place] [address] [facility] [address] [place], [place] 3727[address] Assigned Cancer Care Provider 05/25/23 Marlene White, [facility] Community Health Worker Primary Care - CC 12/11/23 Mer Holguin, [facility] Lead Cable Machine Operator Primary Care - CC 12/12/2312/15 Marlene White, [facility] Community Health Worker Primary Care - CC 12/16/23 Raul Norris, [facility] Clinic Cable Machine Operator Primary Care - CC 12/16/23 documented as of this encounter
--- OUTSIDE RECORDS SUMMARY | 2024-05-28 15:22 | XMS_ITS | Encounter Summary ---
Author Organization [place] Address [address] [facility] [place] [address] Care Team Providers Care Drug Enforcement Administration Agent Name Role Phone JobОлег MD Unavailable [phone] Loretta Elizalde PA-C Unavailable [phone] Loretta Elizalde PA-C Primary Care Provider [phone] Dong Craft MD Unavailable Grazyna Damian CNP Unavailable [phone] Marlene White CHW Unavailable [phone] Mer Holguin ANIMAL HANDLER Unavailable Marlene White CHW Unavailable [phone] Raul Norris ANIMAL HANDLER Unavailable [phone] Encounter Details Date Type Department Care Team (Late st Contact Info) Description 08/19/2023 MyC Medical Advice [facility] Mar[facility] Trans[facility] [address] [address] Eleanor Schwartz Social History Tobacco [...] AM CDT Legal Sex Male 4:41 AM CORPORATE AUDITOR Gender Identity Male 01/28/2024 9:34 AM CDT Sexual Orientation Straight 01/28/2024 9: 34 AM CDT Occupation Industry Job Start Date Job End Date Not on file Not on file Not on file Not on file documented as of this encounter Plan of Treatment Upcoming Encounters Date Type Department Care Team (Late st Contact Info) Description 09/09/2024 7:00 AM CDT Lab [facility] [address] [place] [address] 09/15/2024 8:30 AM CDT Virtual Visit [facility] [address] [place] [address] Dong Craft MD [address] [facility] [place] [address] documented as of this encounter Goals Goal [...] documented as of this encounter Care Teams Drug Enforcement Administration Agent Relationship Specialty Start Date End Date Loretta Elizalde PA-C [address] [place] [address] PCP - General Family Medicine 09/25/22 Олег Kaiser MD [address] [place] [address] Urology 04/05/21 Loretta Elizalde PA-C [address] [place] [address] Assigned PCP 09/22/22 Dong Craft MD [address] [place], [place] 4[address] Hematology 10/09/22 Grazyna Damian CNP [address] [facility] [address] [place] [address] Assigned Cancer Care Provider 05/25/23 Marlene White, [facility] Community Health Worker Primary Care - CC 12/11/23 Mer Holguin, [facility] Lead Telephone Installer Primary Care - CC 12/12/2312/15 Marlene White, [facility] Community Health Worker Primary Care - CC 12/16/23 Raul Norris ANIMAL HANDLER Clinic Telephone Installer Primary Care - CC 12/16/23 documented as of this encounter
--- OUTSIDE RECORDS SUMMARY | 2024-05-28 15:22 | XMS_ITS | Encounter Summary ---
Author Organization [place] Address [address] [place] [address] Care Team Providers Care Special Education Associate Name Role Phone Олег Kaiser MD Unavailable [phone] Loretta Elizalde PA-C Unavailable [phone] Loretta Elizalde PA-C Primary Care Provider [phone] Dong Craft MD Unavailable [phone] Dong Craft MD Unavailable [phone] Grazyna Damian APPELLATE CONFEREE Unavailable [phone] Marlene White CHW Unavailable Mer Holguin CONTRACT RECRUITER Unavailable [phone] Marlene White CHW Unavailable Raul Norris CONTRACT RECRUITER Unavailable [phone] Encounter Details Date Type Department Care Team (Late st Contact Info) Description 04/19/2023 [facility] Medical Advice [facility] [address] [place] [address] Faith Cano Social History Tobacco [...] AM CDT Legal Sex Male 4:41 AM DIRECTOR OF STRATEGIC ALLIANCES Gender Identity Male 01/28/2024 9:34 AM CDT Sexual Orientation Straight 01/28/2024 9: 34 AM CDT Occupation Industry Job Start Date Job End Date Not on file Not on file Not on file Not on file documented as of this encounter Plan of Treatment Upcoming Encounters Date Type Department Care Team (Late st Contact Info) Description 09/09/2024 7:00 AM CDT Lab [facility] [address] [place] [address] 09/15/2024 8:30 AM CDT Virtual Visit [facility] [address] [place] [phone] Dong Craft MD [facility] [address] [address] documented as of this encounter Visit Diagnoses Not on filedocumented in this encounter Additional Health Concerns Assessment Noted Time PHQ-9 Depression Total Score: 2 09/12/19 7:51 AM CDT documented as of this encounter Care Teams Special Education Associate Relationship Specialty Start Date End Date Loretta Elizalde PA-C [address] [place] [address] PCP - General Family Medicine 09/25/22 лОег Kaiser MD [address] [place] [address] 613125 Urology 04/05/21 Loretta Elizalde PA-C [address] [place] [address] Assigned PCP 09/22/22 Dong Craft MD [address] [place] [address] Hematology 10/09/22 Dong Craft MD [address] [place], [place] [address] Assigned Cancer Care Provider 11/24/22 05/24/23 Grazyna Damian CNP [address] [place] [address] [facility] [address] [place], [place] [address] Assigned Cancer Care Provider 05/25/23 Marlene White, [facility] Community Health Worker Primary Care - CC 12/11/23 Mer Holguin, [facility] Lead Maintenance Job Titles Primary Care - CC 12/12/2312/15 Marlene White, [facility] Community Health Worker Primary Care - CC 12/16/23 Raul Norris, [facility] Clinic Maintenance Job Titles Primary Care - CC 12/16/23 documented as of this encounter
--- OUTSIDE RECORDS SUMMARY | 2024-05-28 15:22 | XMS_ITS | Referral Summary ---
Author Organization [place] Address [address] [facility] [place] [address] Care Team Providers Care Director Veterinary Name Role Phone Олег Kaiser MD Unavailable [phone] Loretta Elizalde PA-C Unavailable [phone] Loretta Elizalde PA-C Primary Care Provider [phone] Dong Craft MD Unavailable [phone] Grazyna Damian CNP Unavailable [phone] Encounters Date Type Department Care Team Description 04/30/2024 MyC Medical [facility]ice [facility] [address] [place] [address] Faith Cano 04/27/2024 Orders Only [facility] [address] [place] [phone] Loretta Elizalde PA-C Type 2 diabetes mellitus with diabetic nephropathy, 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) (Primary Dx) 04/26/2024 Refill [facility] [address] [place] [address] Loretta Elizalde PA-C Medication Refill 03/19/2024 MyC Medical Advice [facility] [address] [place] [address] Loretta Elizalde PA-C Mild episode of recurrent major depressive disorder (H) 03/10/2024 Orders Only [facility] [address] [place] [phone] Loretta Elizalde PA-C Low serum testosterone (Primary Dx) 03/06/2024 Telephone [facility] [address] [place] [phone] Loretta Elizalde PA-C Prior Authorization (Continuous Glucose Sensor (FREESTYLE SHIRLENE 3 PLUS SENSOR) [facility] [place] APPROVED) 03/06/2024 Refill [facility] [address] [place] [phone] Loretta Elizalde PA-C Med Change Request 03/06/2024 Travel 03/06/2024 10:30 AM CDT Office Visit [facility] [address] [place] [phone] Loretta Elizalde PA-C Preop general physical exam (Primary Dx); Rotator cuff syndrome, left; Type 2 diabetes mellitus with diabetic nephropathy, 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 Use to read blood sugars per interlocking pavement installer's instructions. 6 each 01/28/20 24 Active sildenafil (VIAGRA) 50 MG [...] (H) Change every 15 days. 6 each 03/06/20 24 Active FLUoxetine (PROZAC) 20 MG [...] been seen in emergency departments frequently in [phone] for epigastric abdominal pain. Has chronic pain of 7/10 noted on December 2018 [facility] admission. He has had significant workup for this pain throughout this time. Patient has had multiple gallbladder US and CT abdomen/pelvis during this time that have been unremarkable. He had EGD in September [address] [facility] that was normal. He saw general surgery DIGITAL LIBRAR[facility] that thought some [...] care provider CONTACT INFORMATION FOR PMD OR HEAD TURNING MACHINE OPERATOR: Johnie Farmer MD [phone] PAIN CONTRACT CLINIC/PRESCRIBER: N/A RESTRICTED STATUS IF [...] (09/11/2022): H/o overdose attempt (2006), hospitalized at [facility] 2009 Vitamin D deficiency 05/16/2010 Gout of right knee, unspecif ied cause, unspecified chronicity 06/25/2008 S/P gastric bypass 06/25/2008 09/11/2022 Overview (09/11/2022): ~2001, [facility], Dr Zhou? 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 I will contact [facility] at [phone] to see if they have housing options for me in the month of December. 2. I will contact additional resources discussed as needed . These were emailed to me on 12/16/23. 3. I will let Care Coordination know if I run in to barriers with this goal. Medical Devices Implanted Type Area [place] Device Identifier Shelf Expiration Date Model / Serial / Lot Stent Ureteral Polaris Ultra [id number] - [id number] Implanted:Qty: 1 on 04/08/2021 by Олег Kaiser MD at [facility] Stent Right: Abdomen [address] [employer] 01/06/2024 [id number] / / [id number] Procedures Procedure Name Priority Date/Time Associated Diagnosis [...] BLOOD STOOL STAT 06/23/2019 9: 59 AM FIXTURE REPAIRER FABRICATOR ASTHMA ACTION PLAN Routine 10/13/2015 9: 27 [...] Elizalde PA-C LAB - BLOOD ORDERABLES Shabnam chan Result [facility] [address], [address] [place] [address], [facility] * Hemoglobin (03/06/2024 11:13 AM CDT) Hemoglobin 14.5 13.3 - 17.7 g/dL 03/06/2024 11:15 AM CDT LABORATORY Blood BLOOD SPECIMEN / Unknown Venipuncture / Unknown 03/06/2024 11:13 AM CDT 03/06/2024 11:13 AM CDT Loretta Elizalde PA-C LAB - BLOOD ORDERABLES Shabnam l Result LABORATORY [facility] [address] [facility] (no room number, 1st floor of clinic) [place] [address], [facility] * (ABNORMAL) Basic metabolic panel [...] - 99 mg/dL 03/06/2024 10:24 PM CDT LABORATORY Blood BLOOD SPECIMEN / Unknown Venipuncture / Unknown 03/06/2024 11:13 AM CDT 03/06/2024 11:13 AM CDT Loretta Elizalde PA-C LAB - BLOOD ORDERABLES Shabnam l Result LABORATORY [facility] [address] [place] [address], [address] * Uric acid (01/28/2024 9:20 AM CDT) Uric Acid 5.7 3.4 - 7.0 mg/dL 01/28/2024 4:19 PM CDT LABORATORY Blood BLOOD SPECIMEN / Unknown Venipuncture / Unknown 01/28/2024 9:20 AM CDT 01/28/2024 9:20 AM CDT Loretta BEAR-C LAB - BLOOD ORDERABLES Shabnam l Result Performing Organization Address City/[facility]/ZIP Co de Phone Number LABORATORY [facility] Core Lab [address] [place] [address], [address] * (ABNORMAL) Hemoglobin A1c (01/28/2024 9:20 AM CDT) Hemoglobin A1C 7.5(H) 0.0 - 5.6 % 01/28/2024 9:34 AM CDT LABORATORY Comment: Normal <5.7% Prediabetes 5.7-6.4% Diabetes 6.5% or higher Note: Adopted from ADA consensus guidelines. Blood BLOOD SPECIMEN / Unknown Venipuncture / Unknown 01/28/2024 9:20 AM CDT 01/28/2024 9:20 AM CDT Loretta Elizalde PA-C LAB - BLOOD ORDERABLES Shabnam l Result LABORATORY [facility] [address] [facility] Lab (no room number, 1st floor of clinic) [place] [address], [facility] * Albumin Random Urine Quantitative [...] control, and institution of therapy with an oloubwphvcl-tmkrydixni-cmepqn (ABNER) inhibitor (if the patient can tolerate it). Urine URINE SPECIMEN / Unknown Non-blood Collection / Unknown 12/11/2023 6:45 AM CDT 12/11/2023 7:33 AM CDT Loretta Elizalde PA-C LAB - URINE ORDERABLES Shabnam l Result LABORATORY [facility] [address] [facility], [address] [place] [address] * (ABNORMAL) Lipid panel reflex [...] BLOOD ORDERABLES Shabnam l Result [facility] LABORATORY [facility] Lab [address] [facility], [address] [place] [address], [facility] [address] [facility] Lab (1st floor, no room number) [place] [address], [facility] * Eye Exam - HIM Scan (11/20/2023 12:00 AM CDT) RETINOPATHY NEGATIVE 11/20/2023 Cash OrestesCassieka - 11/20/2023 12:00 AM CDT EYE EXAM [employer] us Patient Reported OTHER Edited Result - Final * COLONOSCOPY (10/03/2022 12:08 PM CDT) COLONOSCOPY [facility] Patient Name: Alex Salter Procedure Date: 10/03/2022 12:08 PM Date of [...] continuously. The Olympus Adult Colonoscope, Model # CF-SA187C, Endora # 226, SN # [id number] was introduced through the anus and advanced [...] RADIOLOGY RESULTS 10/03/2022 12:0 8 PM CDT us Jd Rhoades MD PROCEDURES Final Resu lt RADIOLOGY RESULTS * HIV Antigen Antibody Combo (09/11/2022 8:48 AM CDT) HIV Antigen Antibody Combo Nonreactive Nonreactive 09/11/2022 5:57 PM CDT [facility] DO Comment:HIV-1 p24 Ag & HIV-1 /HIV-2 Ab Not Detected Blood BLOOD SPECIMEN / Unknown Venipuncture / Unknown 09/11/2022 8:48 AM CDT 09/11/2022 8:48 AM CDT Loretta BEAR-Curtis LAB - BLOOD ORDERABLES Shabnam l Result [facility]/ENDO [facility]/Prot/Endo [address] [facility] [address] [facility], Room [address] [place] [address] * Hepatitis C Screen Reflex to HCV [...] been established for newborns, infants, and children. us Loretta Elizalde PA-C LAB - BLOOD ORDERABLES Shabnam l Result [facility]ENDO [facility]/Prot/Endo [address] [facility] [address] Building, [place] [address], [facility] [phone] * Stool: occult blood (06/23/2019 9:59 AM FIXTURE REPAIRER FABRICATOR) Occult Blood Negative NEG^Negati ve 06/23/2019 10:11 AM FIXTURE REPAIRER FABRICATOR [facility] Comment: Called to RUTH PRITCHETT IN ERA @ 1010 ON 06/23/19, NB Stool specimen (specimen) 06/23/2019 9:59 AM FIXTURE REPAIRER FABRICATOR 06/23/2019 10:05 AM FIXTURE REPAIRER FABRICATOR us Destinee Graham DO LAB - STOOLS ORDERABLES Ed ited Result - Final [facility] [address] [place] [address], [facility] [phone] from Last 3 Months or Most Recently Relevant to Health Maintenance Additional Health Concerns Active Problems Noted Date Diagnosed Date SDOH LACK OF STABLE HOUSING 12/16/2023 Insurance MEDICA CHOICE MEDICA CHOICE Advance Directives For more information, please contact: [phone] * Full Code (Latest Code Status on File) Date Activated Date Inactivated Comments 10/01/2022 6:48 PM 10/04/2022 7:46 PM All basic and advanced life-sustaining interventions are performed as appropriate Question Answer Comments Code status determined by: Discussion with evae nt/ legal decision maker * Full Code Date Activated Date Inactivated Comments 04/08/2021 3:14 AM 04/09/2021 12:38 AM All basic and advanced life-sustaining interventions are performed as appropriate Question Answer Comments Code status determined by: Discussion with aman nt/ legal decision maker * Full Code [...] patie nt/legal decision maker Care Teams Director Veterinary Relationship Specialty Start Date End Date Loretta Elizalde PA-C [address] [place] [address] PCP - General Family Medicine 09/25/22 Олег Kaiser MD [address] [place] [address] Urology 04/05/21 Loretta Elizalde PA-C [address] [place] [address] Assigned PCP 09/22/22 Dong Craft MD [address] [place] [address] [phone] Hematology 10/09/22 Grazyna Damian, NORBERT [address] [place] [address] Assigned Cancer Care Provider 05/25/23
--- OUTSIDE RECORDS SUMMARY | 2024-05-28 15:22 | XMS_ITS | Encounter Summary ---
Author Organization [place] Address [address] [facility] [place] [address] Care Team Providers Care Research Environmental Engineer Name Role Phone Олег Kaiser MD Unavailable [phone] Loretta Elizalde PA-C Unavailable [phone] Loretta Elizalde PA-C Primary Care Provider [phone] Dong Craft MD Unavailable [phone] Grazyna Damian CNP Unavailable [phone] Marlene White [facility] Unavailable Raul Norris [facility] Unavailable [phone] Encounter Details Date Type Department Care Team (Late st Contact Info) Description 02/05/2024 MyC Medical Advice [facility] Care Coordination [facility] [address] [place] [address] Marlene White, W Social History Tobacco Use [...] friends or re latives? Never 12/06/2023 Attends Faith Services Not on file 12/05 Active Member of Clubs or Organizations Not on f ile 12/06/2023 Attends Club or Organization Meetings Not on rolando e 12/06/2023 Marital Status Not on file 12/06/2023 PHQ-2 Answer Date Recorded PHQ-2 Score 2 12/11/2023 [facility] Occupational Stress Questionnaire Answer Date [...] Answer Date Recorded Do you have housing? 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 Gender Identity Male 01/28/2024 9:34 AM CDT Sexual Orientation Straight 01/28/2024 9: 34 AM CDT Occupation Industry Job Start Date Job End Date Not on file Not on file Not on file Not on file documented as of this encounter Plan of Treatment Upcoming Encounters Date Type Department Care Team (Late st Contact Info) Description 09/09/2024 7:00 AM CDT Lab [facility] [address] [place] [address] 09/15/2024 8:30 AM CDT Virtual Visit [facility] [address] [place] [phone] Dong Craft MD [address] [facility], [address] [place] [address] documented as of this encounter Goals Goal [...] this goal: 1. I will contact [facility] Services at [phone] to see if they have housing options [...] documented as of this encounter Care Teams Research Environmental Engineer Relationship Specialty Start Date End Date Loretta Elizalde PA-C [address] [place], [place] [phone] PCP - General Family Medicine 09/25/22 Олег Kaiser MD [address] [place] [address] [phone] Urology 04/05/21 Loretta Elizalde PA-C [address] [place] [address] Assigned PCP 09/22/22 Dong Craft MD [address] [place] [address] [phone] Hematology 10/09/22 Grazyna Damian, NORBERT [address] [place] [address] [phone] Assigned Cancer Care Provider 05/25/23 Marlene White, [facility] Community Health Worker Primary Care - CC 12/16/23 Raul Norris LSW Clinic Iron Guardrail Installer Primary Care - CC 12/16/23 documented as of this encounter
--- OUTSIDE RECORDS SUMMARY | 2024-05-28 15:22 | XMS_ITS | Encounter Summary ---
Author Organization [place] Address [address] [place] [address] Care Team Providers Care Electronic Page Makeup System Operator Name Role Phone Олег Kaiser MD Unavailable [phone] Loretta Elizalde PA-C Unavailable [phone] Loretta Elizalde PA-C Primary Care Provider [phone] Dong Craft MD Unavailable [phone] Grazyna Damian CNP Unavailable [phone] Encounter Details Date Type Department Care Team (Late st Contact Info) Description 04/30/2024 MyC Medical Advice [address] [address] Faith Cano Social History Tobacco [...] Answer Date Recorded PHQ-2 Score 2 12/11/2023 [facility] - Occupational Stress Questionnaire Answer [...] in an abandoned building, in an overnight fci, or couch-surfing.) No 12/06/2023 Are you worried [...] AM CDT 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 Gender Identity Male 01/28/2024 9:34 AM CDT Sexual Orientation Straight 01/28/2024 9: 34 AM CDT Occupation Industry Job Start Date Job End Date Not on file Not on file Not on file Not on file documented as of this encounter Plan of Treatment Upcoming Encounters Date Type Department Care Team (Late st Contact Info) Description 09/09/2024 7:00 AM CDT Lab [facility] [address] [place] [address] 09/15/2024 8:30 AM CDT Virtual Visit [facility] [address] [place] [phone] Dong Craft MD [address] [place] [address] documented as of this encounter Goals Goal [...] achieve this goal: 1. I will contact [facility] [employer] at [phone] to see if they have housing options [...] documented as of this encounter Care Teams Electronic Page Makeup System Operator Relationship Specialty Start Date End Date Loretta Elizalde PA-C [address] [place] [address] PCP - General Family Medicine 09/25/22 Олег Kaiser MD [address] [place] [address] [phone] Urology 04/05/21 Loretta Elizalde PA-C [address] [place] [address] Assigned PCP 09/22/22 Dong Craft MD [address] [place] [address] 527505 Hematology 10/09/22 Grazyna Damian, NORBERT [address] [place] [address] [id number] Assigned Cancer Care Provider 05/25/23 documented as of this encounter
--- OUTSIDE RECORDS SUMMARY | 2024-05-28 15:22 | XMS_ITS | Encounter Summary ---
Author Organization [place] Address [address] [place] [address] Care Team Providers Care Financial Cost Analyst Name Role Phone Олег Kaiser MD Unavailable [phone] Loretta Elizalde PA-C Unavailable [phone] Loretta Elizalde PA-C Primary Care Provider [phone] Dong Craft MD Unavailable [phone] Grazyna Damian CNP Unavailable [phone] Marlene White CHW Unavailable Mer Holguin OPERATION SUPERVISOR Unavailable [phone] Marlene White CHW Unavailable [phone] Raul Norris OPERATION SUPERVISOR Unavailable [phone] Encounter Details Date Type Department Care Team (Late st Contact Info) Description 11/19/2023 [facility] 3rd Flr [address] [place] [address] Pascual Caban Social History Tobacco Use Types [...] AM CDT 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 [address] [place] [address] 09/15/2024 8:30 AM CDT Virtual Visit [facility] [address] [place] [phone] Dong Craft MD [facility] [address], [address] [address] documented as of this encounter Goals Goal [...] documented as of this encounter Care Teams Financial Cost Analyst Relationship Specialty Start Date End Date Loretta Elizalde PA-C [address] [place] [address] PCP - General Family Medicine 09/25/22 Олег Kaiser MD [address] [place] [address] Urology 04/05/21 Loretta Elizalde, PA-C [address] [place] [address] Assigned PCP 09/22/22 Dong Craft MD [address] [place] [address] Hematology 10/09/22 Grayzna Damian CNP [address] [place] [address] 459885 Assigned Cancer Care Provider 05/25/23 Marlene White, [facility] Community Health Worker Primary Care - CC 12/11/23 Mer Holguin, [facility] Lead Sales Representative [facility] Primary Care - CC 12/12/2312/15 Marlene White, [facility] Community Health Worker Primary Care - CC 12/16/23 Raul Norris OPERATION SUPERVISOR Clinic Sales Representative [facility] - CC 12/16/23 documented as of this encounter
--- OUTSIDE RECORDS SUMMARY | 2024-05-28 15:22 | XMS_ITS | Encounter Summary ---
Author Organization [place] Address [address] [facility] [place] [address] Care Team Providers Care Information Technology Director Name Role Phone Олег Kaiser MD Unavailable [phone] Loretta Elizalde PA-C Unavailable [phone] Loretta Elizalde PA-C Primary Care Provider [phone] Dong Craft MD Unavailable [phone] Dong Craft MD Unavailable [phone] Grazyna Damian FOOD SCIENCE PROFESSOR Unavailable [phone] Marlene White CHW Unavailable Mer Holguin MEAT PRESS OPERATOR Unavailable Marlene White CHW Unavailable Raul Norris MEAT PRESS OPERATOR Unavailable [phone] Encounter Details Date Type Department Care Team (Late st Contact Info) Description 02/01/2023 [facility] Medical Advice [address] [address] Faith Cano Social History Tobacco [...] AM CDT 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 Gender Identity Male 01/28/2024 9:34 AM CDT [...] CDT Lab [facility] [address] [place] [address] 09/15/2024 8:30 AM CDT Virtual Visit [facility] [address] [place] [phone] Dong Craft MD [facility] [address] [address] documented as of this encounter Visit Diagnoses Not on filedocumented in this encounter Additional Health Concerns Assessment Noted Time PHQ-9 Depression Total Score: 2 09/12/19 7:51 AM CDT documented as of this encounter Care Teams Information Technology Director Relationship Specialty Start Date End Date Loretta Elizalde PA-C [address] [place] [address] PCP - General Family Medicine 09/25/22 Олег Kaiser MD [address] [place] [address] 195535 Urology 04/05/21 Loretta Elizalde PA-C [address] [place] [address] Assigned PCP 09/22/22 Dong Craft MD [address] [place] [address] Hematology 10/09/22 Dong Craft MD [address] [place] [address] Assigned Cancer Care Provider 11/24/22 05/24/23 Grazyna Damian CNP [address] [facility] [address] [place] [address] Assigned Cancer Care Provider 05/25/23 Marlene White, [facility] Community Health Worker Primary Care - CC 12/11/23 Mer Holguin, [facility] Lead Chlorinator Primary Care - CC 12/12/2312/15 Marlene White, [facility] Community Health Worker Primary Care - CC 12/16/23 Raul Norris [facility] Clinic Chlorinator Primary Care - CC 12/16/23 documented as of this encounter
--- OUTSIDE RECORDS SUMMARY | 2024-05-28 15:22 | XMS_ITS | Encounter Summary ---
Author Organization [place] Address [address] [place] [address] Care Team Providers Care Technology Program Manager Name Role Phone Олег Kaiser MD Unavailable [phone] Loretta Elizalde PA-C Unavailable [phone] Loretta Elizalde PA-C Primary Care Provider [phone] Dong Craft MD Unavailable [phone] Dong Craft MD Unavailable Grazyna Damian SOFTWARE RECRUITER Unavailable [phone] Marlene White CHW Unavailable [phone] Mer Holguin WHOLESALE AGRONOMIST Unavailable Marlene White CHW Unavailable Raul Norris WHOLESALE AGRONOMIST Unavailable [phone] Encounter Details Date Type Department Care Team (Late st Contact Info) Description 12/06/2022 [facility] [address] [place] [address] [facility] Social History Tobacco Use Types Packs/Day Years Used Date Smoking Tobacco: Never Smokeless Tobacco: Never Alcohol Use Standard Drinks/Week Comments Yes 3 (1 standard drink = 0.6 oz pur e alcohol) rare PHQ-2 Answer Date Recorded PHQ-2 Score 2 09/11/2022 Sex and Gender Information Value Date Recorded Sex Assigned at Male 01/28/2024 9:34 AM CDT 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 [address] [place] [phone] 09/15/2024 8:30 AM CDT Virtual Visit [facility] [address] [place] [phone] Dong Craft MD [address] [place] [address] documented as of this encounter Visit Diagnoses Not on filedocumented in this encounter Additional Health Concerns Assessment Noted Time PHQ-9 Depression Total Score: 2 09/12/19 23 7:51 AM CDT documented as of this encounter Care Teams Technology Program Manager Relationship Specialty Start Date End Date Loretta Elizalde PA-C [address] [place] [address] PCP - General Family Medicine 09/25/22 Олег Kaiser MD [address] [place] [address] Urology 04/05/21 Loretta Elizalde PA-C [address] [place] [address] Assigned PCP 09/22/22 Dong Craft MD [address] [facility] [place] [address] Hematology 10/09/22 Dong Craft MD [address] [place] [address] Assigned Cancer Care Provider 11/24/22 05/24/23 Grazyna Damian CNP [address] [place] [address] Assigned Cancer Care Provider 05/25/23 Marlene White, [facility] Community Health Worker Primary Care - CC 12/11/23 Mer Holguin, [facility] Lead Director Distribution Primary Care - CC 12/12/2312/15 Marlene White, [facility] Community Health Worker Primary Care - CC 12/16/23 Raul Norris WHOLESALE AGRONOMIST Clinic Director Distribution Primary Care - CC 12/16/23 documented as of this encounter
--- OUTSIDE RECORDS SUMMARY | 2024-05-28 15:22 | XMS_ITS | Encounter Summary ---
Author Organization [place] Address [address] [facility] [place] [address] Care Team Providers Care Wire Stitcher Machine Name Role Phone Олег Kaiser MD Unavailable [phone] Loretta Elizalde PA-C Unavailable [phone] Loretta Elizalde PA-C Primary Care Provider [phone] Dong Craft MD Unavailable [phone] Dong Craft MD Unavailable [phone] Grazyna Damian RECRUITMENT CONSULTANT Unavailable [phone] Marlene White CHW Unavailable [phone] Mer Holguin MUSIC INDUSTRY INTERNSHIP Unavailable [phone] Marlene White CHW Unavailable Raul Norris MUSIC INDUSTRY INTERNSHIP Unavailable [phone] Encounter Details Date Type Department Care Team (Late st Contact Info) Description 02/01/2023 [facility] Medical Advice [address] [address] Bhavik Coelho MA Social History [...] AM CDT 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 Gender Identity Male 01/28/2024 9:34 AM CDT Sexual Orientation Straight 01/28/2024 9: 34 AM CDT Occupation Industry Job Start Date Job End Date Not on file Not on file Not on file Not on file documented as of this encounter Plan of Treatment Upcoming Encounters Date Type Department Care Team (Late st Contact Info) Description 09/09/2024 7:00 AM CDT Lab [facility] [address] [place] [address] 09/15/2024 8:30 AM CDT Virtual Visit [facility] [address] [place] [phone] Dong Craft MD [facility] [address] [address] documented as of this encounter Visit Diagnoses Not on filedocumented in this encounter Additional Health Concerns Assessment Noted Time PHQ-9 Depression Total Score: 2 09/12/19 23 7:51 AM CDT documented as of this encounter Care Teams Wire Stitcher Machine Relationship Specialty Start Date End Date Loretta Elizalde PA-C [address] [place] [address] PCP - General Family Medicine 09/25/22 Олег Kaiser MD [address] [place] [address] 919135 Urology 04/05/21 Loretta Elizalde PA-C [address] [place] [address] Assigned PCP 09/22/22 Dong Craft MD [address] [place] [address] Hematology 10/09/22 Dong Craft MD [address] [place], [place] [address] Assigned Cancer Care Provider 11/24/22 05/24/23 Grazyna Damian CNP [address] [place] [address] 480 [place], [place] 133265 Assigned Cancer Care Provider 05/25/23 Marlene White, [facility] Community Health Worker Primary Care - CC 12/11/23 Mer Holguin, [facility] Lead Mold Hoister Primary Care - CC 12/12/2312/15 Marlene Whiet, [facility] Community Health Worker Primary Care - CC 12/16/23 Raul Norris MUSIC INDUSTRY INTERNSHIP Clinic Mold Hoister Primary Care - CC 12/16/23 documented as of this encounter
--- OUTSIDE RECORDS SUMMARY | 2024-05-28 15:22 | XMS_ITS | Encounter Summary ---
Author Organization [place] Address [address] [facility] [place] [address] Care Team Providers Care Supervisor Concrete Block Plant Name Role Phone Олег Kaiser MD Unavailable [phone] Loretta Elizalde PA-C Unavailable [phone] Loretta Elizalde PA-C Primary Care Provider [phone] Dong Craft MD Unavailable [phone] Grazyna Damian CNP Unavailable [phone] Reason for Visit * Reason Comments Medication Refill Encounter Details Date Type Department Care Team (Late st Contact Info) Description 04/26/2024 Refill [facility] [address] [place] [address] Loretta Elizalde PA-C [address] [place] [address] Medication Refill Social History Tobacco [...] friends or re latives? 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 Faith Haas Lead Fender Mechanic [facility] [address] BRAKE OPERATOR * Telephone Encounter - Mirna Coley - 04/29/2024 9:16 AM CST LVM requesting a call back for an appt. One more attempt will be made. Mirna Villanueva Fender Mechanic [facility] [address] BRAKE OPERATOR * Telephone Encounter - Faith Cano - 04/28/2024 9:03 AM CST LVM to call back for an appointment. Two more attempts will be made. Faith Cano Lead Fender Mechanic [facility] [address] BRAKE OPERATOR * Telephone Encounter - Loretta Elizalde PA-C - 04/28/2024 8:33 AM RAILROAD BRAKE OPERATOR He was scheduled for diabetes follow-up today but canceled visit. Please help reschedule. Thanks! Loretta Elizalde PA-C ROAD BRAKE OPERATOR * Telephone Encounter - Julia Mccall RN - 04/27/2024 12:23 PM RAILROAD BRAKE OPERATOR Medication passed protocol, however, refill RN could not approve because RX needs updated directions please. Provider, please approve or deny the prescription. Julia Mccall RN [facility] ROAD BRAKE OPERATOR documented in this encounter Plan of Treatment Upcoming Encounters Date Type Department Care Team (Late st Contact Info) Description 09/09/2024 7:00 AM CDT Lab [facility] [address] [place] [phone] 09/15/2024 8:30 AM CDT Virtual Visit [facility] [address] [place] [address] Dong Craft MD [address] [place] [address] documented as of this encounter Goals Goal [...] achieve this goal: 1. I will contact [facility] [employer] at [phone] to see if they have housing options [...] as of this encounter Care Teams Supervisor Concrete Block Plant Relationship Specialty Start Date End Date Loretta Elizalde PA-C [address] [place], [place] 4356968 PCP - General Family Medicine 09/25/22 Олег Kaiser MD [address] [place] [address] 915575 Urology 04/05/21 Loretta Elizalde PA-C [address] [place] [address] Assigned PCP 09/22/22 Dong Craft MD [address] [place] [address] 623825 Hematology 10/09/22 Grazyna Damian, [place] [address] [place] [address] 999985 Assigned Cancer Care Provider 05/25/23 documented as of this encounter
--- OUTSIDE RECORDS SUMMARY | 2024-05-28 15:22 | XMS_ITS | Encounter Summary ---
Author Organization [place] Address [address] [place] [address]. [place] [address] Care Team Providers Care Manager Combination Name Role Phone Олег Kaiser MD Unavailable [phone] Loretta Elizalde PA-C Unavailable [phone] Loretta Elizalde PA-C Primary Care Provider [phone] Dong Craft MD Unavailable [phone] Dong Craft MD Unavailable Grazyna Damian SECURITIES SALES ASSOCIATE Unavailable [phone] Marlene White CHW Unavailable Mer Holguin WRAPPER OFF Unavailable Marlene White CHW Unavailable [phone] Raul Norris WRAPPER OFF Unavailable [phone] Encounter Details Date Type Department Care Team (Late st Contact Info) Description 12/10/2022 [facility] Medical Advice [facility] [address] [place] [address] Vibha Ernst Social History Tobacco [...] AM CDT 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 Gender Identity Male 01/28/2024 9:34 AM CDT [...] CDT Lab [facility] [address] [place] [phone] 09/15/2024 8:30 AM CDT Virtual Visit [facility] [address] [place] [phone] Dong Craft MD [address] [place] [address] documented as of this encounter Visit Diagnoses Not on filedocumented in this encounter Additional Health Concerns Assessment Noted Time PHQ-9 Depression Total Score: 2 09/12/19 23 7:51 AM CDT documented as of this encounter Care Teams Manager Combination Relationship Specialty Start Date End Date Loretta Elizalde PA-C [address] [place], [place] 5521868 PCP - General Family Medicine 09/25/22 Олег Kaiser MD [address] [place] [address] Urology 04/05/21 Loretta Elizalde PA-C [address] [place] [address] Assigned PCP 09/22/22 Dong Craft MD [address] [place] [address] [place] [address] Hematology 10/09/22 Dong Craft MD [address] [place] [address] Assigned Cancer Care Provider 11/24/22 05/24/23 Grazyna Damian CNP [address] [place] [address] [facility] [address] [place] [address] Assigned Cancer Care Provider 05/25/23 Marlene White, [facility] Community Health Worker Primary Care - CC 12/11/23 Mer Holguin, [facility] Lead Hide Spreader Primary Care - CC 12/12/2312/15 Marlene Wihte, [facility] Community Health Worker Primary Care - CC 12/16/23 Raul Norris [facility] Clinic Hide Spreader Primary Care - CC 12/16/23 documented as of this encounter
--- OUTSIDE RECORDS SUMMARY | 2024-05-28 15:22 | XMS_ITS | Encounter Summary ---
Author Organization [place] Address [address] [facility] [place] [address] Care Team Providers Care General Surgery Physician Assistant Name Role Phone Marleny, Johnie Wood Primary Care Provider [phone] Олег Kaiser MD Unavailable + Deven Schulte MD Unavailable [phone] Олег Kaiser MD Unavailable + Loretta Elizalde PA-C Unavailable [phone] Олег Kaiser MD Unavailable + Loretta Elizalde PA-C Primary Care Provider [phone] Deven Schulte MD Unavailable [phone] Dong Craft MD Unavailable [phone] Dong Craft MD Unavailable [phone] Grazyna Damian BI REPORT DEVELOPER Unavailable [phone] Marlene White CHW Unavailable [phone] Mer Holguin GAS JOCKEY Unavailable [phone] Marlene White CHW Unavailable [phone] Raul Norris GAS JOCKEY Unavailable [phone] Reason for Visit * Reason Onset Date Comments Appointment 04/11/2021 stent removal Encounter Details Date Type Department Care Team (Late st Contact Info) Description 04/11/2021 Telephone [facility] [address] [place] [phone] Олег Kaiser MD [address] [place], [place] 85[address] Appointment (stent removal ) Social History Tobacco [...] AM CDT 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 No / Unsure 04/07/2021 11:09 PM DOOR ASSEMBLER documented as of this encounter Miscellaneous Notes * Telephone Encounter - Araceli Degroot - 04/11/2021 12:32 PM CST [facility] Phone Message May a detailed message be left on voicemail: yes Reason for Call: Other: . pt is calling to schedule his stent removal, he had a procedure with 04/08/2021, please call Alex to schedule, thank you Action Taken: Message routed to: Other: uro Travel Screening: Not Applicable ASSEMBLER documented in this encounter Plan of Treatment Upcoming Encounters Date Type Department Care Team (Late st Contact Info) Description 09/09/2024 7:00 AM CDT Lab [facility] [address] [place] [address] 09/15/2024 8:30 AM CDT Virtual Visit [facility] [address] [place] [address] Dong Craft MD [address] [place], [place] [address] documented as of this encounter Visit Diagnoses Not on filedocumented in this encounter Care Teams General Surgery Physician Assistant Relationship Specialty Start Date End Date Johnie Farmer PCP - General Family Practice 01/30/18 09/24/22 Loretta Elizalde PA-C [address] [place] [address] PCP - General Family Medicine 09/25/22 Олег Kaiser MD [address] [place] [address] 865905 Urology 04/05/21 Deven Schulte MD [address] [place] [address] 078195 Assigned Surgical Provider 04/23/21 09/21/22 Олег Kaiser MD [address] [place] [address] Assigned Surgical Provider 04/16/21 04/22/21 Loretta Elizalde PA-C [address] [place] [address] Assigned PCP 09/22/22 Олег Kaiser MD [address] [place] [address] Assigned Surgical Provider 09/22/22 09/28/22 Deven Schulte MD [address] [place] [address], [place] [address] Assigned Surgical Provider 09/29/22 10/19/22 Dong Craft MD [address] [place] [address] MD [facility] 10/09/22 Dong Craft MD [address] [place] [address] Assigned Cancer Care Provider 11/24/22 05/24/23 Grazyna Damian CNP [address] [place] [address] 480 [place] [address] Assigned Cancer Care Provider 05/25/23 Marlene White, [facility] Community Health Worker Primary Care - CC 12/11/23 Mer Holguin, [facility] Lead Picker Machine Operator Primary Care - CC 12/12/2312/15 Marlene White, [facility] Community Health Worker Primary Care - CC 12/16/23 Raul Norris [facility] Clinic Picker Machine Operator Primary Care - CC 12/16/23 documented as of this encounter
--- OUTSIDE RECORDS SUMMARY | 2024-05-28 15:22 | XMS_ITS | Encounter Summary ---
Author Organization [place] Address [address] [facility] [place] [address] Care Team Providers Care Studio Potter Name Role Phone Олег Kaiser MD Unavailable [phone] Loretta Elizalde PA-C Unavailable [phone] Loretta Elizalde PA-C Primary Care Provider [phone] Dong Craft MD Unavailable [phone] Dong Craft MD Unavailable [phone] Grazyna Damian MULTIMEDIA MANAGER Unavailable [phone] Marlene White CHW Unavailable Mer Holguin FOOT DOCTOR Unavailable [phone] Marlene White CHW Unavailable Raul Norris FOOT DOCTOR Unavailable [phone] Encounter Details Date Type Department Care Team (Late st Contact Info) Description 03/25/2023 [facility] Medical Advice [facility] [address] [place] [address] Faith Cano Social History Tobacco [...] AM CDT 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 Gender Identity Male 01/28/2024 9:34 AM CDT Sexual Orientation Straight 01/28/2024 9: 34 AM CDT Occupation Industry Job Start Date Job End Date Not on file Not on file Not on file Not on file documented as of this encounter Plan of Treatment Upcoming Encounters Date Type Department Care Team (Late st Contact Info) Description 09/09/2024 7:00 AM CDT Lab [facility] [address] [place] [address] 09/15/2024 8:30 AM CDT Virtual Visit [facility] [address] [place] [phone] Dong Craft MD [facility] [address] [address] documented as of this encounter Visit Diagnoses Not on filedocumented in this encounter Additional Health Concerns Assessment Noted Time PHQ-9 Depression Total Score: 2 09/12/19 7:51 AM CDT documented as of this encounter Care Teams Studio Potter Relationship Specialty Start Date End Date Loretta Elizalde PA-C [address] [place] [address] PCP - General Family Medicine 09/25/22 Олег Kaiser MD [address] [place] [address] 733085 Urology 04/05/21 Loretta Elizalde PA-C [address] [place] [address] Assigned PCP 09/22/22 Dong Craft MD [address] [place] [address] Hematology 10/09/22 Dong Craft MD [address] [place], [place] 57[address] Assigned Cancer Care Provider 11/24/22 05/24/23 Grazyna Damian CNP [address] [address] [place], [place] [address] Assigned Cancer Care Provider 05/25/23 Marlene White, [facility] Community Health Worker Primary Care - CC 12/11/23 Mer Holguin, [facility] Lead Software Engineer Intern Primary Care - CC 12/12/2312/15 Marlene White, [facility] Community Health Worker Primary Care - CC 12/16/23 Raul Norris, [facility] Clinic Software Engineer Intern Primary Care - CC 12/16/23 documented as of this encounter
--- OUTSIDE RECORDS SUMMARY | 2024-05-28 15:22 | XMS_ITS | Encounter Summary ---
Author Organization [place] Address [address] [facility] [place] [address] Care Team Providers Care Devops Developer Name Role Phone Marleny Johnie Wood Primary Care Provider [phone] Олег Kaiser MD Unavailable [phone] Deven Schulte MD Unavailable [phone] Loretta Elizalde PA-C Unavailable [phone] Олег Kaiser MD Unavailable + Loretta Elizalde PA-C Primary Care Provider [phone] Deven Schulte MD Unavailable [phone] Dong Craft MD Unavailable [phone] Dong Craft MD Unavailable [phone] Rickie Grazyna EELER Unavailable [phone] Marlene White CHW Unavailable [phone] Mer Holguin HEARING STENOGRAPHER Unavailable [phone] Marlene White CHW Unavailable [phone] Raul Norris HEARING STENOGRAPHER Unavailable [phone] Encounter Details Date Type Department Care [...] AM CDT 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 No / Unsure 07/15/2021 6:20 PM CREW CALLER documented as of this encounter Plan of Treatment Upcoming Encounters Date Type Department Care Team (Late st Contact Info) Description 09/09/2024 7:00 AM CDT Lab [facility] [address] [place] [address] 09/15/2024 8:30 AM CDT Virtual Visit [facility] [address] [place] [phone] Dong Craft MD [facility] [address], [address] 96[address] documented as of this encounter Visit Diagnoses Not on filedocumented in this encounter Care Teams Devops Developer Relationship Specialty Start Date End Date oJhnie Farmer PCP - General Family Practice 01/30/18 09/24/22 Loretta Elizalde PA-C [address] [place] [address] PCP - General Family Medicine 09/25/22 Олег Kaiser MD [address] [place] [address] Urology 04/05/21 Deven Schulte MD [address] [place] [address] Assigned Surgical Provider 04/23/21 09/21/22 Loretta Elizalde PA-C [address] [place] [address] Assigned PCP 09/22/22 Олег Kaiser MD [address] [place] [address] Assigned Surgical Provider 09/22/22 09/28/22 Deven Schulte MD [address] [place] [address] Assigned Surgical Provider 09/29/22 10/19/22 Dong Craft MD [address] [place] [address] MD [place] 10/09/22 Dong Craft MD [address] [place] [address] Assigned Cancer Care Provider 11/24/22 05/24/23 Grazyna Damian CNP [address] [place] [address] Assigned Cancer Care Provider 05/25/23 Marlene White, [facility] Community Health Worker Primary Care - CC 12/11/23 Mer Holguin, [facility] Lead Assistant Food Service Manager Primary Care - CC 12/12/2312/15 Marlene White, [facility] Community Health Worker Primary Care - CC 12/16/23 Raul Norris LSW Clinic Assistant Food Service Manager Primary Care - CC 12/16/23 documented as of this encounter
--- OUTSIDE RECORDS SUMMARY | 2024-05-28 15:22 | XMS_ITS | Encounter Summary ---
Author Organization [place] Address [address] [facility] [place] [address] Care Team Providers Care Cable Splicer Name Role Phone Marleny Johnie Wood Primary Care Provider [phone] Олег Kaiser MD Unavailable [phone] Deven Schulte MD Unavailable [phone] Loretta Elizalde PA-C Unavailable [phone] Олег Kaiser MD Unavailable + Loretta Elizalde PA-C Primary Care Provider [phone] Deven Schulte MD Unavailable [phone] Dong Craft MD Unavailable [phone] Dong Craft MD Unavailable [phone] Rickie Grazyna MAIL LIST PROCESSOR Unavailable [phone] Marlene White CHW Unavailable [phone] Mer Holguin GRINDER WATCH PARTS Unavailable [phone] Marlene White CHW Unavailable [phone] Raul Norris [employer] Unavailable [phone] Reason for Visit * Reason Onset Date Comments Diabetes Education 09/12/2022 Encounter Details Date Type Department Care Team (Late st Contact Info) Description 09/12/2022 Telephone [facility] [address] [place] [address] Loretta Elizalde PA-C [address] [place] [address] Diabetes Education Social History Tobacco Use Types Packs/Day Years Used Date Smoking Tobacco: Never Smokeless Tobacco: Never Alcohol Use Standard Drinks/Week Comments Yes 3 (1 standard drink = 0.6 oz pur e alcohol) rare PHQ-2 Answer Date Recorded PHQ-2 Score 2 09/11/2022 Sex and Gender Information Value Date Recorded Sex Assigned at Male 01/28/2024 9:34 AM CDT Legal Sex Male 4:41 AM HOT TAMALE MAN Gender Identity Male 01/28/2024 9:34 AM CDT [...] Contact Info) Description 09/09/2024 7:00 AM CDT [facility] [address] [place] [address] 09/15/2024 8:30 AM CDT Virtual Visit [facility] [address] [place] [address] Dong Craft MD [address] [place] [address] documented as of this encounter Visit Diagnoses Not on filedocumented in this encounter Additional Health Concerns Assessment Noted Time PHQ-9 Depression Total Score: 2 09/12/19 7:51 AM CDT documented as of this encounter Care Teams Cable Splicer Relationship Specialty Start Date End Date Johnie Farmer PCP - General Family Practice 01/30/18 09/24/22 Loretta Elizalde PA-C [address] [place] [address] PCP - General Family Medicine 09/25/22 Олег Kaiser MD [address] [place] [address] [id number] Urology 04/05/21 Deven Schulte MD [address] [place] [address] Assigned Surgical Provider 04/23/21 09/21/22 Loretta Elizalde PA-C [address] [place] [address] Assigned PCP 09/22/22 Олег Kaiser MD [address] [place] [address] Assigned Surgical Provider 09/22/22 09/28/22 Deven Schulte MD [address] [place] [address] Assigned Surgical Provider 09/29/22 10/19/22 Dong Craft MD [address] [place] [address] [facility] 10/09/22 Dong Craft MD [address] [facility], [address] [place] [address] Assigned Cancer Care Provider 11/24/22 05/24/23 Grazyna Damian CNP [address] [place] [address] [facility] [address] [place] [address] Assigned Cancer Care Provider 05/25/23 Marlene White, [facility] Community Health Worker Primary Care - CC 12/11/23 Mer Holguin, [facility] Lead Temperature Logging Operator Primary Care - CC 12/12/2312/15 Marlene White, [facility] Community Health Worker Primary Care - CC 12/16/23 Raul Norris [facility] Clinic Temperature Logging Operator Primary Care - CC 12/16/23 documented as of this encounter
--- OUTSIDE RECORDS SUMMARY | 2024-05-28 15:22 | XMS_ITS | Encounter Summary ---
Author Organization [place] Address [address] [facility] 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 Loretta Elizalde PA-C ANICAL PROJECT MANAGER documented in this encounter Plan of Treatment Upcoming Encounters Date Type Department Care Team (Late st Contact Info) Description 09/09/2024 7:[address] 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 I will contact [facility] [employer] at [phone] to see if they have housing options [...] long-term current use of insulin (H)- Primary documented in this encounter Additional Health Concerns Active Problems Noted Date Diagnosed Date SDOH LACK OF STABLE HOUSING 12/16/2023 Assessment Noted Time PHQ-9 Depression Total Score: 3 12/11/19 24 7:08 AM CDT documented as of this encounter Care Teams Ophthalmic Medical Assistant Relationship Specialty Start Date End Date Loretta Elizalde PA-C [address] [place] [address] PCP - General Family Medicine 09/25/22 Олег Kaiser MD [address] [place] [address] Urology 04/05/21 Loretta Elizalde PA-C [address] [place] [address] Assigned PCP 09/22/22 Dong Craft MD [address] [place] [address] [facility] 10/09/22 Grazyna Damian CNP [address] [place] [address] Assigned Cancer Care Provider 05/25/23 documented as of this encounter
--- OUTSIDE RECORDS SUMMARY | 2024-05-28 15:22 | XMS_ITS | Encounter Summary ---
Author Organization [place] Address [address] [place] [address] Care Team Providers Care Sulfur Burner Name Role Phone Job, Олег Ramírez MD Unavailable [phone] Loretta Elizalde PA-C Unavailable [phone] Loretta Elizalde PA-C Primary Care Provider [phone] Dong Craft MD Unavailable Grazyna Damian MONEY ROOM TELLER Unavailable [phone] Marlene White CHW Unavailable [phone] Mer Holguin GENERAL INTERNIST AND PHYSICIAN LEADER Unavailable Marlene White CHW Unavailable Raul Norris GENERAL INTERNIST AND PHYSICIAN LEADER Unavailable [phone] Encounter Details Date Type Department Care Team (Late st Contact Info) Description 12/04/2023 MyC Medical Advice [facility] [address] [place] [address] Grazyna Damian, MONEY ROOM TELLER [address] [place] [address] [facility] [address] [place] [address] Social History Tobacco Use Types [...] friends or re latives? 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 Gender Identity Male 01/28/2024 9:34 AM CDT Sexual Orientation Straight 01/28/2024 9: 34 AM CDT Occupation Industry Job Start Date Job End Date Not on file Not on file Not on file Not on file documented as of this encounter Plan of Treatment Upcoming Encounters Date Type Department Care Team ([facility] st Contact Info) Description 09/09/2024 7:00 AM CDT Lab [facility] [address] [place] [phone] 09/15/2024 8:30 AM CDT Virtual Visit [facility] [address] [place] [address] Dong Craft MD [facility] [address], [address] [address] documented as of this encounter Goals Goal [...] documented as of this encounter Care Teams Sulfur Burner Relationship Specialty Start Date End Date Loretta Elizaled PA-C [address] [place] [address] PCP - General Family Medicine 09/25/22 Олег Kaiser MD [address] [place], [place] 9192[address] Urology 04/05/21 Loretta Elizalde PA-C [address] [place] [address] Assigned PCP 09/22/22 Dong Craft MD [address] [place] [address] [id number] Hematology 10/09/22 Grazyna Damian CNP [address] [address] Assigned Cancer Care Provider 05/25/23 Marlene White, [facility] Community Health Worker Primary Care - CC 12/11/23 Mer Holguin, GENERAL INTERNIST AND PHYSICIAN LEADER Lead Cassandra Developer Primary Care - CC 12/12/2312/15 Marlene White, [facility] Community Health Worker Primary Care - CC 12/16/23 Raul Norris LSW Clinic Cassandra Developer Primary Care - CC 12/16/23 documented as of this encounter
--- OUTSIDE RECORDS SUMMARY | 2024-05-28 15:23 | XMS_ITS | Encounter Summary ---
Author Organization [place] Address [address] [facility] [place] [address] Care Team Providers Care Student Counsellor Name Role Phone Clinic, [facility] Unavailable Jennifer Pond MD Primary Care Provider + [phone] [facility] [place] Camilo Elida Primary Care Pro vider Dany Hirsch Primary Care Provider [phone] Johnie Farmer Primary Care Provider [phone] JobОлег bergeron MD Unavailable +[phone] Deven Schulte MD Unavailable [phone] Олег Kaiser MD Unavailable +[phone] Loretta Elizalde PA-C Unavailable [phone] Олег Kaiser MD Unavailable +[phone] Loretta Elizalde PA-C Primary Care Provider [phone] Deven Schulte MD Unavailable [phone] Dong Craft MD Unavailable [phone] Dong Craft MD Unavailable [phone] Grazyna Damian ONLINE COMMUNICATIONS SPECIALIST Unavailable [phone] Marlene White CHW Unavailable [phone] Mer Holguin [employer] Unavailable [phone] Marlene White CHW Unavailable Raul Norris [employer]AND Unavailable [phone] Encounter Details Date Type Department Care Team (Late st Contact Info) Description 03/24/2015 MyC Medical Advice [address] [place] [phone] Vibha Orozco Social History Tobacco Use Types [...] AM CDT 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 Male 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 Gender Identity Male 01/28/2024 9:34 AM CDT Sexual Orientation Straight 01/28/2024 9: 34 AM CDT Occupation Industry Job Start Date Job End Date Not on file Not on file Not on file Not on file documented as of this encounter Plan of Treatment Upcoming Encounters Date Type Department Care Team (Late st Contact Info) Description 09/09/2024 7:00 AM CDT Lab [facility] [address] [place] [address] 09/15/2024 8:30 AM CDT Virtual Visit [facility] [address] [place] [address] Dong Craft MD [facility][note 3][address], [address] [address] documented as of this encounter Visit Diagnoses Not on filedocumented in this encounter Additional Health Concerns Infection Onset Date Last Indicated Resolved Time Rule Out COVID-19 10/09/2019 10/09/2019 10/09/2019 9:36 PM CDT Rule Out COVID-19 11/20/2019 11/20/2019 11/21/2019 5:10 PM CDT Rule Out COVID-19 11/25/2019 11/25/2019 11/26/2019 4:41 PM CDT Rule Out COVID-19 04/18/2020 04/18/2020 04/18/2020 4:22 PM MANAGER UTILIZATION COVID-19 04/18/2020 04/18/2020 05/09/2020 11:4 0 PM MANAGER UTILIZATION documented as of this encounter Care Teams Student Counsellor Relationship Specialty Start Date End Date Jennifer Pond MD [address] [place] [address] PCP - General Internal Medicine 11/08/14 08/26/16 [facility] [address] [place] [address] PCP - General 08/27/16 10/26/16 Dany Hirsch [address] [place] [address] PCP - General Family Practice 10/27/16 01/29/18 Johnie Farmer [address] [place] [address] PCP - General Family Practice 01/30/18 09/24/22 Loretta Elizalde PA-C [address] [place] [address] PCP - General Family Medicine 09/25/22 [facility] [address] [place] [address] 06/14/11 08/26/16 Олег Kaiser MD [address] [place], [place] [address] Urology 04/05/21 Deven Schulte MD [address] [place], [place] [address] Assigned Surgical Provider 04/23/21 09/21/22 Олег Kaiser MD [address] [place] [address] 696085 Assigned Surgical Provider 04/16/21 04/22/21 Loretta Elizalde PA-C [address] [place], [place] 7667168 Assigned PCP 09/22/22 Олег Kaiser MD [address] [place] [address] Assigned Surgical Provider 09/22/22 09/28/22 Deven Schulte MD [address] [place] [address] 499365 Assigned Surgical Provider 09/29/22 10/19/22 Dong Craft MD [address] [place] [address] MD Gómez 10/09/22 Dong Craft MD [address] [place] [address], [address] [address] Assigned Cancer Care Provider 11/24/22 05/24/23 Grazyna Damian CNP [address] [place] [address] 480 [place] [address] Assigned Cancer Care Provider 05/25/23 Marlene White, W Community Health Worker Primary Care - CC 12/11/23 12/12/23 Mer Holguin, [employer] Lead Plasterer Helper Primary Care - CC 12/12/2312/15 Marlene White, W Community Health Worker Primary Care - CC 12/16/23 02/19/24 Raul Norris LSW Clinic Plasterer Helper Primary Care - CC 12/16/23 02/19/24 documented as of this encounter
--- OUTSIDE RECORDS SUMMARY | 2024-05-28 15:23 | XMS_ITS | Encounter Summary ---
Author Organization [place] Address [address] [facility] [place] [address] Care Team Providers Care Plodder Operator Name Role Phone [facility] Unavailable Kate Bradley PA-C Primary Care Pro vider [facility] Primary Care P rovider Jennifer Pond MD Primary Care Provider + [phone] [facility] [place] Primary Care Pro vider Dany Hirsch Primary Care Provider Johnie Farmer Primary Care Provider JobОлег MD Unavailable +[phone] Deven Schulte MD Unavailable [phone] JobОлег bergeron MD Unavailable +[phone] Loretta Elizalde PA-C Unavailable +[phone] JobОлег bergeron MD Unavailable +[phone] Loretta Elizalde PA-C Primary Care Provider [phone] Deven Schulte MD Unavailable [phone] Dong Craft MD Unavailable [phone] Dong Craft MD Unavailable [phone] Grazyna Damian CNP Unavailable [phone] Marlene White CHW Unavailable Mer Holguin CONCRETE PAVING MACHINE OPERATOR Unavailable Marlene White CHW Unavailable Raul Norris CONCRETE PAVING MACHINE OPERATOR Unavailable [phone] Encounter Details Date Type Department Care Team ([facility] Contact Info) Description 10/22/2013 MyC Medical Advice [facility] [address] [place] [address] Kate Bradley PA-C [facility] [address], [address] [place] [address] Social History Tobacco Use Types [...] AM CDT 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 Male 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 Gender Identity Male 01/28/2024 9:34 AM CDT Sexual Orientation Straight 01/28/2024 9: 34 AM CDT Occupation Industry Job Start Date Job End Date Not on file Not on file Not on file Not on file documented as of this encounter Plan of Treatment Upcoming Encounters Date Type Department Care Team ([facility] Contact Info) Description 09/09/2024 7:00 AM CDT Lab [facility] [address] [place] [address] 09/15/2024 8:30 AM CDT Virtual Visit [facility] [address] [place] [address] Dong Craft MD [address] [facility] [place], [place] [address] documented as of this encounter Visit Diagnoses Not on filedocumented in this encounter Additional Health Concerns Infection Onset Date Last Indicated Resolved Time Rule Out COVID-19 10/09/2019 10/09/2019 10/09/2019 9:36 PM CDT Rule Out COVID-19 11/20/2019 11/20/2019 11/21/2019 5:10 PM CDT Rule Out COVID-19 11/25/2019 11/25/2019 11/26/2019 4:41 PM CDT Rule Out COVID-19 04/18/2020 04/18/2020 04/18/2020 4:22 PM CHILD NEUROLOGIST COVID-19 04/18/2020 04/18/2020 05/09/2020 11:4 0 PM CHILD NEUROLOGIST documented as of this encounter Care Teams Plodder Operator Relationship Specialty Start Date End Date Kate Bradley PA-C [address] [place] [address] PCP - General Family Practice 09/22/13 10/27/14 [facility] [address] [facility] [place] [address] PCP - General 10/28/14 11/07/14 Jennifer Pond MD [address] [place] [address] [place]GENE C[place]ST[place] [address] PCP - General Internal Medicine 11/08/14 08/26/16 [facility] [address] [place] [address] PCP - General 08/27/16 10/26/16 Dany Hirsch [address] [place] [address] PCP - General Family Practice 10/27/16 01/29/18 Johnie Farmer [address] [place] [address] PCP - General Family Practice 01/30/18 09/24/22 Loretta Elizalde PA-C [address] [place] [address] PCP - General Family Medicine 09/25/22 [facility] [address] [place] [address] 06/14/11 08/26/16 Олег Kaiser MD [address] [place] [address]8825 Urology 04/05/21 Deven Schulte MD [address] [place] [address] Assigned Surgical Provider 04/23/21 09/21/22 Олег Kaiser MD [address] [place] [address] Assigned Surgical Provider 04/16/21 04/22/21 Loretta Elizalde PA-C [address] [place] [address] Assigned PCP 09/22/22 Олег Kaiser MD [address] [place] [address] Assigned Surgical Provider 09/22/22 09/28/22 Deven Schulte MD [address] [place] [address] Assigned Surgical Provider 09/29/22 10/19/22 Dong Craft MD [address] [place] [address] [facility] 10/09/22 Dong Craft MD [address] [place] [address] Assigned Cancer Care Provider 11/24/22 05/24/23 Grazyna Damian CNP [address] [place] [address] [facility] [address] [place] [address] Assigned Cancer Care Provider 05/25/23 Marlene White, [facility] Community Health Worker Primary Care - CC 12/11/23 12/12/23 Mer Holguin, [facility] Lead Data Architect Manager Primary Care - CC 12/12/2312/15 Marlene White, [facility] Community Health Worker Primary Care - CC 12/16/23 02/19/24 Raul Norris [facility] Clinic Data Architect Manager Primary Care - CC 12/16/23 02/19/24 documented as of this encounter
--- OUTSIDE RECORDS SUMMARY | 2024-05-28 15:23 | XMS_ITS | Encounter Summary ---
Author Organization [place] Address [address] [facility] [place] [address] Care Team Providers Care Tire Builder Operator Name Role Phone Clinic, [facility] Unavailable Jennifer Pond MD Primary Care Provider + [phone] [facility] [place] Camilo [place] Primary Care Pro vider Dany Hirsch Primary Care Provider +[phone] Johnie Farmer Primary Care Provider +[phone] JobОлег bergeron MD Unavailable +[phone] Deven Schulte MD Unavailable [phone] Олег Kaiser MD Unavailable +[phone] Loretta Elizalde PA-C Unavailable +[phone] Олег Kaiser MD Unavailable +[phone] Loretta Elizalde PA-C Primary Care Provider +[phone] Deven Schulte MD Unavailable +[phone] Dong Craft MD Unavailable +[phone] Dong Craft MD Unavailable +[phone] Grazyna Damian MANUFACTURING ENGINEER CHIEF Unavailable +[phone] Marlene White CHW Unavailable +[phone] Mer Holguin CEILING INSTALLER Unavailable +[phone] Marlene White CHW Unavailable Raul Norris CEILING INSTALLER Unavailable +[phone] Encounter Details Date Type Department Care Team (Late Contact Info) Description 05/02/2015 MyC Medical Advice [address] [place] [phone] Ruth Leigh, LONG LINE TEAMSTER Social History Tobacco Use Types Packs/Day Years Used Date Smoking Tobacco: Never Smokeless Tobacco: Never Alcohol Use Standard Drinks/Week Comments No 0 (1 standard drink = 0.6 oz pure alcohol) 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 [address] [place] [address] 09/15/2024 8:30 AM CDT Virtual Visit [facility] [address] [place] [phone] Dong Craft MD [facility] [address], [address] [address] documented as of this encounter Visit Diagnoses Not on filedocumented in this encounter Additional Health Concerns Infection Onset Date Last Indicated Resolved Time Rule Out COVID-19 10/09/2019 10/09/2019 10/09/2019 9:36 PM CDT Rule Out COVID-19 11/20/2019 11/20/2019 11/21/2019 5:10 PM CDT Rule Out COVID-19 11/25/2019 11/25/2019 11/26/2019 4:41 PM CDT Rule Out COVID-19 04/18/2020 04/18/2020 04/18/2020 4:22 PM OPERATIONS AND MAINTENANCE TECHNICAN COVID-19 04/18/2020 04/18/2020 05/09/2020 11:4 0 PM OPERATIONS AND MAINTENANCE TECHNICAN documented as of this encounter Care Teams Tire Builder Operator Relationship Specialty Start Date End Date Jennifer Pond MD [address] [address] PCP - General Internal Medicine 11/08/14 08/26/16 [facility] [address] [place] [address] PCP - General 08/27/16 10/26/16 Dany Hirsch [address] [place] [address] PCP - General Family Practice 10/27/16 01/29/18 Johnie Farmer [address] [place] [address] PCP - General Family Practice 01/30/18 09/24/22 Loretta Elizalde PA-C [address] [place] [address] PCP - General Family Medicine 09/25/22 Formerly Named [facility] [address] [place] [address] 06/14/11 08/26/16 Олег Kaiser MD [address] [place], [place] [phone] Urology 04/05/21 Deven Schulte MD [address] [place] [address] [phone] Assigned Surgical Provider 04/23/21 09/21/22 Олег Kaiser MD [address] [place] [address] 055205 Assigned Surgical Provider 04/16/21 04/22/21 Loretta Elizalde PA-C [address] [place] [address] Assigned PCP 09/22/22 Олег Kaiser MD [address] [place] [address] 264665 Assigned Surgical Provider 09/22/22 09/28/22 Deven Schulte MD [address] [place] [address] [phone] Assigned Surgical Provider 09/29/22 10/19/22 Dong Craft MD [address] [place] [address] [id number] MD Gómez 10/09/22 Dong Craft MD [address] [place] [address] 006704 Assigned Cancer Care Provider 11/24/22 05/24/23 Grazyna Damian CNP [address] [place] [address] 693255 Assigned Cancer Care Provider 05/25/23 Marlene White, W Community Health Worker Primary Care - CC 12/11/23 12/12/23 Mer Holguin, CEILING INSTALLER Lead Chain Saw Operator Primary Care - CC 12/12/2312/15 Marlene White, W Community Health Worker Primary Care - CC 12/16/23 02/19/24 Raul Norris LSW Clinic Chain Saw Operator Primary Care - CC 12/16/23 02/19/24 documented as of this encounter
--- OUTSIDE RECORDS SUMMARY | 2024-05-28 15:23 | XMS_ITS | Encounter Summary ---
Author Organization [place] Address [address] [facility] [place] [address] Care Team Providers Care Quality Manager Name Role Phone Clinic, [facility] Unavailable Jennifer Pond MD Primary Care Provider + [phone] [facility] [place] [employer] Cam[place] Primary Care Pro vider Dany Hirsch Primary Care Provider +[phone] Johnie Farmer Primary Care Provider +[phone] JobОлег bergeron MD Unavailable +[phone] Deven Schulte MD Unavailable [phone] Олег Kaiser MD Unavailable +[phone] Loretta Elizalde PA-C Unavailable +[phone] Олег Kaiser MD Unavailable +[phone] Loretta Elizalde PA-C Primary Care Provider [phone] Deven Schulte MD Unavailable +[phone] Dong Craft MD Unavailable +[phone] Dong Craft MD Unavailable +[phone] Grazyna Damian FLASK CARRIER Unavailable [phone] Marlene White CHW Unavailable +[phone] Mer Holguin DIRECTOR OF WORKFORCE DEVELOPMENT Unavailable +[phone] Marlene White CHW Unavailable +[phone] Raul Norris DIRECTOR OF WORKFORCE DEVELOPMENT Unavailable [phone] Encounter Details Date Type Department Care Team (Late Contact Info) Description 01/24/2015 MyC Medical Advice [address] [place] [phone] Ruth Leigh, RISK PREVENTION ENGINEER Social History Tobacco Use Types Packs/Day Years Used Date Smoking Tobacco: Never Smokeless Tobacco: Never Alcohol Use Standard Drinks/Week Comments No 0 (1 standard drink = 0.6 oz pure alcohol) 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 [address] [place] [address] 09/15/2024 8:30 AM CDT Virtual Visit [facility] [address] [place] [phone] Dong Craft MD [facility] [place] [address], [address] [address] documented as of this encounter Visit Diagnoses Not on filedocumented in this encounter Additional Health Concerns Infection Onset Date Last Indicated Resolved Time Rule Out COVID-19 10/09/2019 10/09/2019 10/09/2019 9:36 PM CDT Rule Out COVID-19 11/20/2019 11/20/2019 11/21/2019 5:10 PM CDT Rule Out COVID-19 11/25/2019 11/25/2019 11/26/2019 4:41 PM CDT Rule Out COVID-19 04/18/2020 04/18/2020 04/18/2020 4:22 PM RUG RENOVATOR COVID-19 04/18/2020 04/18/2020 05/09/2020 11:4 0 PM RUG RENOVATOR documented as of this encounter Care Teams Quality Manager Relationship Specialty Start Date End Date Jennifer Pond MD [address] [place] [address] PCP - General Internal Medicine 11/08/14 08/26/16 [facility] [address] [place] [address] PCP - General 08/27/16 10/26/16 Dany Hirsch [address] [place] [address] PCP - General Family Practice 10/27/16 01/29/18 Johnie Farmer [address] [place] [address] PCP - General Family Practice 01/30/18 09/24/22 Loretta Elizalde PA-C [address] [place] [address] PCP - General Family Medicine 09/25/22 [facility] [address] [place] [address] 06/14/11 08/26/16 Олег Kaiser MD [address] [place], [place] [phone] Urology 04/05/21 Deven Schulte MD [address] [place] [address] [phone] Assigned Surgical Provider 04/23/21 09/21/22 Олег Kaiser MD [address] [place] [address] 063095 Assigned Surgical Provider 04/16/21 04/22/21 Loretta Elizalde PA-C [address] [place] [address] Assigned PCP 09/22/22 Олег Kaiser MD [address] [place] [address] [phone] Assigned Surgical Provider 09/22/22 09/28/22 Deven Schlute MD [address] [place] [address] 718905 Assigned Surgical Provider 09/29/22 10/19/22 Dong Craft MD [address] [place] [address] 196975 MD Gómez 10/09/22 Dong Craft MD [address] [place] [address] 419094 Assigned Cancer Care Provider 11/24/22 05/24/23 Grazyna Damian CNP [address] [place] [address] 827415 Assigned Cancer Care Provider 05/25/23 Marlene White, W Community Health Worker Primary Care - CC 12/11/23 12/12/23 Mer Holguin, DIRECTOR OF WORKFORCE DEVELOPMENT Lead Mechanical Manager Primary Care - CC 12/12/2312/15 Marlene White, W Community Health Worker Primary Care - CC 12/16/23 02/19/24 Raul Norris LSW Clinic Mechanical Manager Primary Care - CC 12/16/23 02/19/24 documented as of this encounter
--- OUTSIDE RECORDS SUMMARY | 2024-05-28 15:23 | XMS_ITS | Encounter Summary ---
Author Organization [place] Address [address] [facility] [address] Care Team Providers Care Chargemaster Specialist Name Role Phone Clinic, [facility] Unavailable Jennifer Pond MD Primary Care Provider + [phone] [facility] [place] Camilo [place] Primary Care Pro vider Dany Hirsch Primary Care Provider +[phone] Johnie Farmer Primary Care Provider +[phone] JobОлег bergeron MD Unavailable +[phone] Deven Schulte MD Unavailable [phone] Олег Kaiser MD Unavailable +[phone] Loretta Elizalde PA-C Unavailable +[phone] Олег Kaiser MD Unavailable +[phone] Loretta Elizlade PA-C Primary Care Provider [phone] Deven Schulte MD Unavailable [phone] Dong Craft MD Unavailable +[phone] Dong Craft MD Unavailable +[phone] Grazyna Damian BAND PRESSER Unavailable [phone] Marlene White CHW Unavailable +[phone] Mer Holguin LIFE TESTER OUTBOARD MOTORS Unavailable +[phone] Marlene White CHW Unavailable +[phone] Raul Norris LIFE TESTER OUTBOARD MOTORS Unavailable [phone] Encounter Details Date Type Department Care Team (Late Contact Info) Description 06/16/2015 MyC Medical Advice [address] [place] [phone] Ruth Leigh, MEAL ATTENDANT Social History Tobacco Use Types Packs/Day Years Used Date Smoking Tobacco: Never Smokeless Tobacco: Never Alcohol Use Standard Drinks/Week Comments No 0 (1 standard drink = 0.6 oz pure alcohol) 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 Sex and Gender Information Value Date Recorded Sex Assigned at Male 01/28/2024 9:34 AM CDT Legal Sex Male 4:41 AM KILN WORKER Gender Identity Male 01/28/2024 9:34 AM CDT Sexual Orientation Straight 01/28/2024 9: 34 AM CDT Occupation Industry Job Start Date Job End Date Not on file Not on file Not on file Not on file documented as of this encounter Plan of Treatment Upcoming Encounters Date Type Department Care Team (Late st Contact Info) Description 09/09/2024 7:00 AM CDT Lab [facility] [address] [place] [address] 09/15/2024 8:30 AM CDT Virtual Visit [facility] [address] [place] [phone] Dong Craft MD [facility] [address], [address] [address] documented as of this encounter Visit Diagnoses Not on filedocumented in this encounter Additional Health Concerns Infection Onset Date Last Indicated Resolved Time Rule Out COVID-19 10/09/2019 10/09/2019 10/09/2019 9:36 PM CDT Rule Out COVID-19 11/20/2019 11/20/2019 11/21/2019 5:10 PM CDT Rule Out COVID-19 11/25/2019 11/25/2019 11/26/2019 4:41 PM CDT Rule Out COVID-19 04/18/2020 04/18/2020 04/18/2020 4:22 PM KILN WORKER COVID-19 04/18/2020 04/18/2020 05/09/2020 11:4 0 PM KILN WORKER documented as of this encounter Care Teams Chargemaster Specialist Relationship Specialty Start Date End Date Jennifer Pond MD [address] [facility] [address] PCP - General Internal Medicine 11/08/14 08/26/16 [facility] [address] [place] [address] PCP - General 08/27/16 10/26/16 Dany Hirsch [address] [place] [address] PCP - General Family Practice 10/27/16 01/29/18 Johnie Farmer [address] [place] [address]64 PCP - General Family Practice 01/30/18 09/24/22 Loretat Elizalde PA-C [address] [place] [address] PCP - General Family Medicine 09/25/22 [facility] [address] [place] [address] 06/14/11 08/26/16 Олег Kaiser MD [address] [place], [place] [phone] Urology 04/05/21 Deven Schulte MD [address] [place] [address] [phone] Assigned Surgical Provider 04/23/21 09/21/22 Олег Kaiser MD [address] [place] [address] [phone] Assigned Surgical Provider 04/16/21 04/22/21 Loretta Elizalde PA-C [address] [place] [address] Assigned PCP 09/22/22 Олег Kaiser MD [address] [place] [address] 687025 Assigned Surgical Provider 09/22/22 09/28/22 Deven Schulte MD [address] [place] [address] 132595 Assigned Surgical Provider 09/29/22 10/19/22 Dong Craft MD [address] [place] [address] [phone] MD Gómez 10/09/22 Dong Craft MD [address] [place] [address] 612214 Assigned Cancer Care Provider 11/24/22 05/24/23 Grazyna Damian CNP [address] [place] [address] [phone] Assigned Cancer Care Provider 05/25/23 Marlene White, W Community Health Worker Primary Care - CC 12/11/23 12/12/23 Mer Holguin, LIFE TESTER OUTBOARD MOTORS Lead Director Of Consumer Affairs Primary Care - CC 12/12/2312/15 Marlene White, W Community Health Worker Primary Care - CC 12/16/23 02/19/24 Raul Norris LSW Clinic Director Of Consumer Affairs Primary Care - CC 12/16/23 02/19/24 documented as of this encounter
--- OUTSIDE RECORDS SUMMARY | 2024-05-28 15:23 | XMS_ITS | Encounter Summary ---
Author Organization [place] Address [address] [facility] [place] [address] Care Team Providers Care Engine Watchman Name Role Phone [facility] Unavailable Kate Bradley PA-C Primary Care Pro vider [facility] Alicia [facility] Primary Care P rovider Jennifer Pond MD Primary Care Provider + [phone] [facility] Camilo [place] Primary Care Pro vider Dany Hirsch Primary Care Provider [phone] Johnie Farmer Primary Care Provider +[phone] JobОлег MD Unavailable +[phone] Deven Schulte MD Unavailable [phone] JobОлег bergeron MD Unavailable +[phone] Loretta Elizalde PA-C Unavailable +[phone] JobОлег bergeron MD Unavailable +[phone] Loretta Elizalde PA-C Primary Care Provider [phone] Deven Schulte MD Unavailable [phone] Dong Craft MD Unavailable +[phone] Dong Craft MD Unavailable +[phone] Grazyna Damian CNP Unavailable [phone] Marlene White CHW Unavailable [phone] Mer Holguin TRACK MOVING MACHINE OPERATOR Unavailable Marlene White CHW Unavailable Raul Norris TRACK MOVING MACHINE OPERATOR Unavailable [phone] Encounter Details Date Type Department Care Team ([facility] Contact Info) Description 10/19/2014 [facility] [place] [place] Medical Advice [facility] [address] [place] [address] [address] [place] [address] [facility] Social History Tobacco Use Types [...] AM CDT Legal Sex Male 4:41 AM SPONGE FISHERMAN Gender Identity Male 01/28/2024 9:34 AM CDT Sexual Orientation Straight 01/28/2024 9: 34 AM CDT Occupation Industry Job Start Date Job End Date Not on file Not on file Not on file Not on file documented as of this encounter Plan of Treatment Upcoming Encounters Date Type Department Care Team ([facility] Contact Info) Description 09/09/2024 7:00 AM CDT Lab [facility] [address] [place] [address] 09/15/2024 8:30 AM CDT Virtual Visit [facility] [address] [place] [address] Dong Craft MD [address] [facility], [address] [address]84144 documented as of this encounter Visit Diagnoses Not on filedocumented in this encounter Additional Health Concerns Infection Onset Date Last Indicated Resolved Time Rule Out COVID-19 10/09/2019 10/09/2019 10/09/2019 9:36 PM CDT Rule Out COVID-19 11/20/2019 11/20/2019 11/21/2019 5:10 PM CDT Rule Out COVID-19 11/25/2019 11/25/2019 11/26/2019 4:41 PM CDT Rule Out COVID-19 04/18/2020 04/18/2020 04/18/2020 4:22 PM SPONGE FISHERMAN COVID-19 04/18/2020 04/18/2020 05/09/2020 11:4 0 PM SPONGE FISHERMAN documented as of this encounter Care Teams Engine Watchman Relationship Specialty Start Date End Date Kate Bradley PA-C [address] [place] [address] PCP - General Family Practice 09/22/13 10/27/14 [facility] [address] [place] [address] PCP - General 10/28/14 11/07/14 Jennifer Pond MD [address] [place] [address] [place] [address] PCP - General Internal Medicine 11/08/14 08/26/[address] [address] PCP - General 08/27/16 10/26/16 Dany Hirsch [address] [place] [address] PCP - General Family Practice 10/27/16 01/29/18 Johnie Farmer [address] [place] [address] PCP - General Family Practice 01/30/18 09/24/22 Loretta Elizalde PA-C [address] [place] [address] PCP - General Family Medicine 09/25/[address] [address] 06/14/11 08/26/16 Олег Kaiser MD [address] [place] [address] 769255 Urology 04/05/21 Deven Schulte MD [address] [place] [address] 207405 Assigned Surgical Provider 04/23/21 09/21/22 Олег Kaiser MD [address] [place] [address] 438275 Assigned Surgical Provider 04/16/21 04/22/21 Loretta Elizalde PA-C [address] [place] [address] Assigned PCP 09/22/22 Олег Kaiser MD [address] [place] [address] 349355 Assigned Surgical Provider 09/22/22 09/28/22 Deven Schulte MD [address] [place] [address] 640825 Assigned Surgical Provider 09/29/22 10/19/22 Dong Craft MD [address] [place] [address] MD Gómez 10/09/22 Dong Craft MD [address], [address] [place], [place] 891144 Assigned Cancer Care Provider 11/24/22 05/24/23 Grazyna Damian CNP [address] [facility] [address] [place], [place] 215525 Assigned Cancer Care Provider 05/25/23 Marlene White, [facility] Community Health Worker Primary Care - CC 12/11/23 12/12/23 Mer Holguin, [facility] Lead Rescue Instructor Primary Care - CC 12/12/2312/15 Marlene White, [facility] Community Health Worker Primary Care - CC 12/16/23 02/19/24 Raul Norris, [facility] Clinic Rescue Instructor Primary Care - CC 12/16/23 02/19/24 documented as of this encounter
--- OUTSIDE RECORDS SUMMARY | 2024-05-28 15:23 | XMS_ITS | Encounter Summary ---
Author Organization [place] Address [address] [facility] [place] [address] Care Team Providers Care Nanotechnology Engineering Technologist Name Role Phone Clinic, [facility] Unavailable Jennifer Pond MD Primary Care Provider + [phone] [facility] Camilo [place] Primary Care Pro vider Dany Hirsch Primary Care Provider [phone] Johnie Farmer Primary Care Provider [phone] JobОлег bergeron MD Unavailable +[phone] Deven Schulte MD Unavailable [phone] Олег Kaiser MD Unavailable +[phone] Loretta Elizalde PA-C Unavailable +[phone] Олег Kaiser MD Unavailable +[phone] Loretta Elizalde PA-C Primary Care Provider [phone] Deven Schulte MD Unavailable [phone] Dong Craft MD Unavailable [phone] Dong Craft MD Unavailable +[phone] Grazyna Damian BULK TANK DRIVER Unavailable [phone] Marlene White CHW Unavailable [phone] Mer Holguin PHARMACY TECHNOLOGY INSTRUCTOR Unavailable [phone] Marlene White CHW Unavailable Raul Norris PHARMACY TECHNOLOGY INSTRUCTOR Unavailable [phone] Encounter Details Date Type Department Care Team (Late Contact Info) Description 10/13/2015 MyC Medical Advice [address] [place] [phone] Ruth Leigh, EMPLOYEE RELATION MANAGER Social History Tobacco Use Types Packs/Day Years Used Date Smoking Tobacco: Never Smokeless Tobacco: Never Alcohol Use Standard Drinks/Week Comments No 0 (1 standard drink = 0.6 oz pure alcohol) 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 Sex and Gender Information Value Date Recorded Sex Assigned at Male 01/28/2024 9:34 AM CDT Legal Sex Male 4:41 AM TAB CUTTING MACHINE OPERATOR Gender Identity Male 01/28/2024 9:34 AM CDT Sexual Orientation Straight 01/28/2024 9: 34 AM CDT Occupation Industry Job Start Date Job End Date Not on file Not on file Not on file Not on file documented as of this encounter Plan of Treatment Upcoming Encounters Date Type Department Care Team (Late st Contact Info) Description 09/09/2024 7:00 AM CDT Lab [facility] [address] [place] [address] 09/15/2024 8:30 AM CDT Virtual Visit [facility] [address] [place] [phone] Dong Craft MD [facility] [address], [address] [address] documented as of this encounter Visit Diagnoses Not on filedocumented in this encounter Additional Health Concerns Infection Onset Date Last Indicated Resolved Time Rule Out COVID-19 10/09/2019 10/09/2019 10/09/2019 9:36 PM CDT Rule Out COVID-19 11/20/2019 11/20/2019 11/21/2019 5:10 PM CDT Rule Out COVID-19 11/25/2019 11/25/2019 11/26/2019 4:41 PM CDT Rule Out COVID-19 04/18/2020 04/18/2020 04/18/2020 4:22 PM TAB CUTTING MACHINE OPERATOR COVID-19 04/18/2020 04/18/2020 05/09/2020 11:4 0 PM TAB CUTTING MACHINE OPERATOR documented as of this encounter Care Teams Nanotechnology Engineering Technologist Relationship Specialty Start Date End Date Jennifer Pond MD [address] [place] [address] PCP - General Internal Medicine 11/08/14 08/26/16 [facility] [address] [place] [address] PCP - General 08/27/16 10/26/16 Dany Hirsch [address] [place] [address] PCP - General Family Practice 10/27/16 01/29/18 Johnie Farmer [address] [place] [address] PCP - General Family Practice 01/30/18 09/24/22 Loretta Elizalde PA-C [address] [place] [address] PCP - General Family Medicine 09/25/22 [facility] [address] [place] [address] 06/14/11 08/26/16 Олег Kaiser MD [address] [place], [place] [phone] Urology 04/05/21 Deven Schulte MD [address] [place] [address] [phone] Assigned Surgical Provider 04/23/21 09/21/22 Олег Kaiser MD [address] [place] [address] [id number] Assigned Surgical Provider 04/16/21 04/22/21 Loretta Elizalde PA-C [address] [place] [address] Assigned PCP 09/22/22 Олег Kaiser MD [address] [place] [address] [id number] Assigned Surgical Provider 09/22/22 09/28/22 Deven Schulte MD [address] [place] [address] 315205 Assigned Surgical Provider 09/29/22 10/19/22 Dong Craft MD [address] [place] [address] [id number] MD Gómez 10/09/22 Dong Craft MD [address] [place] [address] [id number] Assigned Cancer Care Provider 11/24/22 05/24/23 Grazyna Damian CNP [address] [place] [address] 849025 Assigned Cancer Care Provider 05/25/23 Marlene White, W Community Health Worker Primary Care - CC 12/11/23 12/12/23 Mer Holguin, PHARMACY TECHNOLOGY INSTRUCTOR Lead Bundle Collector Primary Care - CC 12/12/2312/15 Marlene White, W Community Health Worker Primary Care - CC 12/16/23 02/19/24 Raul Norris LSW Clinic Bundle Collector Primary Care - CC 12/16/23 02/19/24 documented as of this encounter
--- OUTSIDE RECORDS SUMMARY | 2024-05-28 15:23 | XMS_ITS | Encounter Summary ---
Author Organization [place] Address [address] [facility] [place] [address] Care Team Providers Care Emergency Medical Service Coordinator Name Role Phone Clinic, [facility] Unavailable Jennifer Pond MD Primary Care Provider + [phone] [facility] Camilo [place] Primary Care Pro vider Dany Hirsch Primary Care Provider [phone] Johnie Farmer Primary Care Provider [phone] JobОлег bergeron MD Unavailable +[phone] Deven cShulte MD Unavailable [phone] Олег Kaiser MD Unavailable +[phone] Loretta Elizalde PA-C Unavailable [phone] Олег Kaiser MD Unavailable +[phone] Loretta Elizalde PA-C Primary Care Provider [phone] Deven Schulte MD Unavailable [phone] Dong Craft MD Unavailable [phone] Dong Craft MD Unavailable [phone] Grazyna Damian CAR PARKER Unavailable [phone] Marlene White CHW Unavailable [phone] Mer Holguin CUSTOMER RESPONSE REPRESENTATIVE Unavailable [phone] Marlene White CHW Unavailable Raul Norris CUSTOMER RESPONSE REPRESENTATIVE Unavailable [phone] Encounter Details Date Type Department Care Team (Late Contact Info) Description 06/16/2015 MyC Medical Advice [address] [place] [phone] Ruth Leigh, SIZING MACHINE AND DRIER OPERATOR Social History Tobacco Use Types Packs/Day [...] CDT Legal Sex Male 4:41 AM HOT PLATE PLYWOOD PRESS OPERATOR Gender Identity Male 01/28/2024 9:34 AM CDT Sexual Orientation Straight 01/28/2024 9: 34 AM CDT Occupation Industry Job Start Date Job End Date Not on file Not on file Not on file Not on file documented as of this encounter Plan of Treatment Upcoming Encounters Date Type Department Care Team (Late st Contact Info) Description 09/09/2024 7:00 AM CDT Lab [facility] [address] [place] [address] 09/15/2024 8:30 AM CDT Virtual Visit [facility] [address] [place] [phone] Dong Craft MD [facility] [address], [address] [address] documented as of this encounter Visit Diagnoses Not on filedocumented in this encounter Additional Health Concerns Infection Onset Date Last Indicated Resolved Time Rule Out COVID-19 10/09/2019 10/09/2019 10/09/2019 9:36 PM CDT Rule Out COVID-19 11/20/2019 11/20/2019 11/21/2019 5:10 PM CDT Rule Out COVID-19 11/25/2019 11/25/2019 11/26/2019 4:41 PM CDT Rule Out COVID-19 04/18/2020 04/18/2020 04/18/2020 4:22 PM HOT PLATE PLYWOOD PRESS OPERATOR COVID-19 04/18/2020 04/18/2020 05/09/2020 11:4 0 PM HOT PLATE PLYWOOD PRESS OPERATOR documented as of this encounter Care Teams Emergency Medical Service Coordinator Relationship Specialty Start Date End Date Jennifer Pond MD [address] [facility] [place] [address] PCP - General Internal Medicine 11/08/14 08/26/16 [facility] [address] [place] [address] PCP - General 08/27/16 10/26/16 Dany Hirsch [address] [place] [address] PCP - General Family Practice 10/27/16 01/29/18 Johnie Farmer [address] [place] [address] PCP - General Family Practice 01/30/18 09/24/22 Loretta Elizalde PA-C [address] [place] [address] PCP - General Family Medicine 09/25/22 [facility] [address] [place] [address] 06/14/11 08/26/16 Олег Kaiser MD [address] [place], [place] [phone] Urology 04/05/21 Deven Schulte MD [address] [place] [address] [phone] Assigned Surgical Provider 04/23/21 09/21/22 Олег Kaiser MD [address] [place] [address] [phone] Assigned Surgical Provider 04/16/21 04/22/21 Loretta Elizalde PA-C [address] [place] [address] Assigned PCP 09/22/22 Олег Kaiser MD [address] [place] [address] [phone] Assigned Surgical Provider 09/22/22 09/28/22 Deven Schulte MD [address] [place] [address] 161595 Assigned Surgical Provider 09/29/22 10/19/22 Dong Craft MD [address] [place] [address] [phone] MD Gómez 10/09/22 Dong Craft MD [address] [place] [address] 480544 Assigned Cancer Care Provider 11/24/22 05/24/23 Grazyna Damian CNP [address] [place] [address] 249445 Assigned Cancer Care Provider 05/25/23 Marlene White, W Community Health Worker Primary Care - CC 12/11/23 12/12/23 Mer Holguin, CUSTOMER RESPONSE REPRESENTATIVE Lead Morning Nanny Primary Care - CC 12/12/2312/15 Marlene White, W Community Health Worker Primary Care - CC 12/16/23 02/19/24 Raul Norris LSW Clinic Morning Nanny Primary Care - CC 12/16/23 02/19/24 documented as of this encounter
--- OUTSIDE RECORDS SUMMARY | 2024-05-28 15:23 | XMS_ITS | Encounter Summary ---
Author Organization [place] Address [address] [facility] [place] [address] Care Team Providers Care Leather Dresser Name Role Phone [facility] Unavailable Kate Bradley PA-C Primary Care Pro vider [facility] Alicia [facility] Primary Care P rovider Jennifer Pond MD Primary Care Provider + [phone] [facility] Camilo [place] Primary Care Pro vider Dany Hirsch Primary Care Provider Johnie Farmer Primary Care Provider JobОлег MD Unavailable +[phone] Deven Schulte MD Unavailable [phone] JobОлег bergeron MD Unavailable +[phone] Loretta Elizalde PA-C Unavailable +[phone] JobОлег bergeron MD Unavailable +[phone] Loretta Elizalde PA-C Primary Care Provider [phone] Deven Schulte MD Unavailable [phone] Dong Craft MD Unavailable [phone] Dong Craft MD Unavailable [phone] Grazyna Damian CNP Unavailable [phone] Marlene White CHW Unavailable [phone] Mer Holguin BROKERAGE PURCHASE AND SALE CLERK Unavailable Marlene White CHW Unavailable Raul Norris BROKERAGE PURCHASE AND SALE CLERK Unavailable [phone] Reason for Visit * Reason Comments Medication Refill Encounter Details Date Type Department Care Team (Late Contact Info) Description 07/28/2014 Refill [facility] [address] [place] [phone] Kate Bradley PA-C [facility] [address] [facility] [place], [place] [address] Medication Refill Social History Tobacco Use Types [...] AM CDT Legal Sex Male 4:41 AM SOFTWARE TRAINER Gender Identity Male 01/28/2024 9:34 AM CDT Sexual Orientation Straight 01/28/2024 9: 34 AM CDT Occupation Industry Job Start Date Job End Date Not on file Not on file Not on file Not on file documented as of this encounter Plan of Treatment Upcoming Encounters Date Type Department Care Team (Late Contact Info) Description 09/09/2024 7:00 AM CDT Lab [facility] [address] [place] [address] 09/15/2024 8:30 AM CDT Virtual Visit [facility] [address] [place] [address] Dong Craft MD [address] [place] [address] documented as of this encounter Visit Diagnoses Not on filedocumented in this encounter Additional Health Concerns Infection Onset Date Last Indicated Resolved Time Rule Out COVID-19 10/09/2019 10/09/2019 10/09/2019 9:36 PM CDT Rule Out COVID-19 11/20/2019 11/20/2019 11/21/2019 5:10 PM CDT Rule Out COVID-19 11/25/2019 11/25/2019 11/26/2019 4:41 PM CDT Rule Out COVID-19 04/18/2020 04/18/2020 04/18/2020 4:22 PM SOFTWARE TRAINER COVID-19 04/18/2020 04/18/2020 05/09/2020 11:4 0 PM SOFTWARE TRAINER documented as of this encounter Care Teams Leather Dresser Relationship Specialty Start Date End Date Kate Bradley PA-C [address] [place] [address] PCP - General Family Practice 09/22/13 10/27/14 [facility] [address] [place] [address] PCP - General 10/28/14 11/07/14 [place] [address] [place] [address] [place] [address] PCP - General Internal Medicine 11/08/14 08/26/16 [facility] [address] [place] [address] PCP - General 08/27/16 10/26/16 Dany Hirsch [address] [place] [address] PCP - General Family Practice 10/27/16 01/29/18 Johnie Farmer [address] [place] [address] PCP - General Family Practice 01/30/18 09/24/22 Loretta Elizalde PA-C [address] [place] [address] PCP - General Family Medicine 09/25/[address] [address] 06/14/11 08/26/16 Олег Kaiser MD [address] [place] [address] Urology 04/05/21 Deven Schulte MD [address] [place] [address] Assigned Surgical Provider 04/23/21 09/21/22 Олег Kaiser MD [address] [place] [address] 80272 Assigned Surgical Provider 04/16/21 04/22/21 Loretta Elizalde PA-C [address] [place] [address] Assigned PCP 09/22/22 Олег Kaiser MD [address] [place] [address]97 Assigned Surgical Provider 09/22/22 09/28/22 Deven Schulte MD [address] [place] [address] Assigned Surgical Provider 09/29/22 10/19/22 Dong Craft MD [address] [facility] [place] [address] [facility] 10/09/22 Dong Craft MD [address] [place] [address] Assigned Cancer Care Provider 11/24/22 05/24/23 Grazyna Damian CNP [address] [facility] [address] [place] [address] Assigned Cancer Care Provider 05/25/23 Marlene White, [facility] Community Health Worker Primary Care - CC 12/11/23 12/12/23 Mer Holguin, [facility] Lead Aircraft Communicator Primary Care - CC 12/12/2312/15 Marlene White, [facility] Community Health Worker Primary Care - CC 12/16/23 02/19/24 Raul Norris BROKERAGE PURCHASE AND SALE CLERK Clinic Aircraft Communicator Primary Care - CC 12/16/23 02/19/24 documented as of this encounter
--- OUTSIDE RECORDS SUMMARY | 2024-05-28 15:24 | XMS_ITS | Encounter Summary ---
Author Organization [place] Address [address] [place] [address] Care Team Providers Care Rigger Name Role Phone Johnie Farmer MD Primary Care Provider [phone] Encounter Details Date Type Department Care Team [...] R/O COVID19 04/18/2020 04/18/2020 04/19/2020 5:02 PM PHOTOGRAPHIC EQUIPMENT INSPECTOR COVID19 04/18/2020 04/18/2020 05/09/2020 3:17 AM PHOTOGRAPHIC EQUIPMENT INSPECTOR documented as of this encounter Care Teams Rigger Relationship Specialty [place] [address] [place] [address] PCP - General Family Practice 01/30/18 documented as of this encounter
--- OUTSIDE RECORDS SUMMARY | 2024-05-28 15:24 | XMS_ITS | Clinical Summary ---
Author Organization [employer] Address [address] [place] [address] Care Team Providers Care Interpreter Deaf Name Role Phone MarlenyJohnie MD Primary Care Provider [phone] Source Comments You are receiving this document as you are listed as the primary care provider,follow-up provider, or the patient has been referred to you for consultation.This is in compliance with the Medicare andOur [facility] Hospitalcaid EHR Incentive Program,which states Providers who transition their patient to another setting of careor provider of care or refers their patient to another provider of care shouldprovide summary care record for each transition of care or referral. [facility] Allergies Active Allergy Reactions Criticality Noted Date [...] taking.Reported on 02/17/2024 metFORMIN (GLUCOPHAGE) 1000 MG tabletIndications:Un controlled type [...] Tablet 3 12/19/2018 Active Continuous Blood Gluc Image Processing Engineer (FREESTYLE SHIRLENE 14 DAY READER) DEVIIndications:Unco ntrolled [...] Follow package directions 21 Tablet 02/17/2024 Active Active Problems Problem Noted Date Diagnosed [...] extremity 09/05/2017 05/19/2018 Overview (09/05/2017): vs lymphangitis [facility] Case Management 12/11/19 12 01/02/2012 Overview (12/11/2011): Background: BH Diagnosis: Episodic Mood Dis, Alcohol Dep, Adjustment Dis. Current situation: Patient in need of BH provider to evaluate and manage his BH medications and possible BH therapy. Providers outside of [facility]: none known of. Goals/Recommendations: Outpatient Behavioral Health Director Of StateHistory Teacher Information: Sheri Chandler [facility] Action Plan: Assisted patient in scheduling 11/09/11 intake appointment with JELANI Momin at [facility] - patient didn't attend. Plan is to start with med mgt and then seek out therapy through [facility] so as to coordinate care. Hidradenitis suppurativa 07/12/2011 Knee pain 03/03/2011 05/19/2018 Vitamin D deficiency 05/16/2010 018 Hyperlipidemia with target LDL less than 100 0 04/27/2019 Overview (02/02/2015): ICD 10 Encounters Date Type Department Care Team Description 02/26/2024 E-Visit Dedicated Specialty Scheduling [address] [address] Mychart, Generic Provider from Last 3 Months Immunizations Name Administration Dates Next Due Flu Vac (3+ yrs) 03/08/2012,02/23/2011, 0 H1n1 Miv Sanofi 3+ Yr, Preservative-free (Injected) 07/08/2009 HepB Adult (Engerix-B, 20+ y rs, 3 dose series) 04/11/2012,05/12/2010,02/09/2010 Influenza IIV4 (Quadrivalent ) 0.5mL (98678) 02/12/2018,04/02/2017,02/09/2016,2013 Influenza, Unspecified Formulation 03/15/2019 PPSV23 (Pneumovax) [...] 76 02/17/2024 5:41 PM CDT Temperature 36.5 C (97.7 F) 02/17/2024 5:41 PM CDT Respiratory Rate 20 02/17/2024 5:41 PM CDT Oxygen Saturation 100% 02/17/2024 5:41 PM CDT Inhaled Oxygen Concentration - - Weight 105.7 kg (233 lb) 07/13/2019 4:53 PM SUPERVISOR LAUNDRY Height 174 cm (5' 8.5) 07/13/2019 4:53 PM SUPERVISOR LAUNDRY Body Mass Index 34.91 07/13/2019 4:53 PM SUPERVISOR LAUNDRY Plan of Treatment Health Maintenance Due Date [...] CREATININE / GFR Routine 07/27/2019 5:06 PM SUPERVISOR LAUNDRY Preoperative examination HGB A1C Routine 07/13/2019 5:40 PM SUPERVISOR LAUNDRY Uncontrolled type 2 diabetes mellitus with hyperglycemia (HRC) ALBUMIN/CREAT RATIO Routine 04/27/2019 6 :26 PM SUPERVISOR LAUNDRY Uncontrolled type 2 diabetes mellitus with hyperglycemia (HRC) LIPID PANEL & DIRECT LDL (IF NEEDED) Routine 02/12/2018 4:56 PM CDT Uncontrolled type 2 diabetes mellitus without complication, 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RC) from Last 3 Months or Most Recently Relevant to Health Maintenance Results * Creatinine / GFR (07/27/2019 5:06 PM SUPERVISOR LAUNDRY) Creatinine 1.10 0.73 - 1.18 mg/dL 07/27/2019 8:51 PM SUPERVISOR LAUNDRY [facility] GFR, Estimated >60 >60 mL/min/1.7 3m2 07/27/2019 8:51 PM SUPERVISOR LAUNDRY [facility] GFR, Est If >60 >60 mL/min/1.7 3m2 07/27/2019 8:51 PM SUPERVISOR LAUNDRY [facility] Blood Venipuncture / Unknown 07/27/2019 5:06 PM SUPERVISOR LAUNDRY 07/27/2019 5:06 PM SUPERVISOR LAUNDRY oJhnie Farmer MD LAB_1 Performing Organization Address [facility]/ZIP Co de Phone Number [facility] [address] [place] [address] [phone] * (ABNORMAL) Hemoglobin A1C Glycosylated (07/13/2019 5:40 PM SUPERVISOR LAUNDRY) Hemoglobin A1C 7.1(H) <=5.6 % 07/14/2019 10:39 AM SUPERVISOR LAUNDRY [facility] Blood Venipuncture / Unknown 07/13/2019 5:40 PM SUPERVISOR LAUNDRY 07/13/2019 5:40 PM SUPERVISOR LAUNDRY Narrative [facility] - 07/14/2019 10:39 AM SUPERVISOR LAUNDRY For patients not previously diagnosed with diabetes: 5.7-6.4%: Increased risk for diabetes 6.5% and greater: Diagnostic for diabetes For patients diagnosed with diabetes: <8.0%: Goal of therapy for ages 18-75 Clinicians may recommend a higher or lower goal for specific individuals. Johnie Farmer MD LAB_1 Performing Organization Address [facility] Co de Phone Number [facility] [address] * (ABNORMAL) Microalbumin Urine Random (UMAR) (04/27/2019 6:26 PM SUPERVISOR LAUNDRY) Albumin, Urine, Random 56.7 mg/L 04/27/2019 9:21 PM [facility] Creatinine, Urine, Random 150 >20 mg/dL 04/27/2019 9:21 PM [facility] Albumin/Creati nine Ratio, Urine, Random 38(H) <30 mg/g 04/27/2019 9:21 PM [facility] Urine,random 04/27/2019 6:26 PM SUPERVISOR LAUNDRY 04/27/2019 6:26 PM SUPERVISOR LAUNDRY Johnie Farmer MD LAB_1 [facility] [address] [place] [address], [facility] [phone] * Lipid Panel - LDLD If Trig [...] - 02/12/2018 8:47 PM CDT Performed at [facility], [address] [place] [address] CLIA number [id number] Dany Hirsch MD LAB_1 PN SOFT [address] [place] [address] from Last 3 Months or Most Recently Relevant to Health Maintenance [address] [address] [facility] [place] [address] Alex Goodwin III Personal/Famil y Self 1975 [address] [place] [address] Dana Goodwine III Personal/Famil y Self 1975 [id number] 2 (Home) [address] [place] [address] Buddy Alex III Personal/Famil y Self 1975 [address] [place] [address] Buddy Alex III Workers Comp Self 1975 [id number] 2 (Home) [address] [place] [address] Buddy Alex III Workers Comp Self 1975 [id number] 2 (Home) [address] [place] [address] Buddy Alex III Workers Comp Self 1975 [id number] 2 (Home) [address] [place] [address] Advance Directives * Full Code (Latest Code Status on File) Date Activated Date Inactivated Comments 02/28/2018 10:40 PM 03/01/2018 7:00 PM * Full Code Date Activated Date Inactivated Comments 10/27/2011 11:11 AM 10/30/2011 3:43 PM * Full Code Date Activated Date Inactivated Comments 01/03/2010 12:56 AM 01/04/2010 1:26 PM Care Teams Interpreter Deaf Relationship Specialty [place] [address] [place] [address] PCP - General Family Practice 01/30/18
--- OUTSIDE RECORDS SUMMARY | 2024-05-28 15:24 | XMS_ITS | Encounter Summary ---
Author Organization [employer] Address [address] [place] [address] Care Team Providers Care Bus Driver/Monitor Name Role Phone Johnie Farmer MD Primary Care Provider [phone] Encounter Details Date Type Department Care Team (Late st Contact Info) Description 09/25/2013 Emergency Room External to [facility], Provider DEPRESSION Social History Tobacco Use [...] R/O COVID19 04/18/2020 04/18/2020 04/19/2020 5:02 PM FIBER DRIER OPERATOR COVID19 04/18/2020 04/18/2020 05/09/2020 3:17 AM FIBER DRIER OPERATOR documented as of this encounter Care Teams Bus Driver/Monitor Relationship Specialty [place] [address] [place] [address] PCP - General Family Practice 01/30/18 documented as of this encounter
--- OUTSIDE RECORDS SUMMARY | 2024-05-28 15:24 | XMS_ITS | Encounter Summary ---
Author Organization [facility] Address [address] [place] [address] Care Team Providers Care Book Author Name Role Phone Johnie Farmer MD Primary Care Provider [phone] Encounter Details Date Type Department Care Team (Late st Contact Info) Description 09/27/2013 Outside Hospital External to [facility], Provider CONSULT Social History Tobacco Use Types [...] R/O COVID19 04/18/2020 04/18/2020 04/19/2020 5:02 PM LEAD CASE MANAGER COVID19 04/18/2020 04/18/2020 05/09/2020 3:17 AM LEAD CASE MANAGER documented as of this encounter Care Teams Book Author Relationship Specialty [place] [address] [place] [address] PCP - General Family Practice 01/30/18 documented as of this encounter
--- OUTSIDE RECORDS SUMMARY | 2024-05-28 15:24 | XMS_ITS | Encounter Summary ---
Author Organization [employer] Address [address] [place] [address] Care Team Providers Care Telesales Specialist Name Role Phone Johnie Farmer MD Primary Care Provider [phone] Encounter Details Date Type Department Care Team [...] R/O COVID19 04/18/2020 04/18/2020 04/19/2020 5:02 PM PARKING ENFORCEMENT TECHNICIAN COVID19 04/18/2020 04/18/2020 05/09/2020 3:17 AM PARKING ENFORCEMENT TECHNICIAN documented as of this encounter Care Teams Telesales Specialist Relationship Specialty [place] [address] [place] [address] PCP - General Family Practice 01/30/18 documented as of this encounter
--- OUTSIDE RECORDS SUMMARY | 2024-05-28 15:24 | XMS_ITS | Encounter Summary ---
Author Organization [employer] Address [address] [place] [address] Care Team Providers Care Customer Relations Specialist Name Role Phone Johnie Farmer MD Primary Care Provider [phone] Encounter Details Date Type Department Care Team (Late st Contact Info) Description 09/28/2013 Outside Hospital External to [facility], Provider DISCHARGE SUMMARY Social History Tobacco Use [...] R/O COVID19 04/18/2020 04/18/2020 04/19/2020 5:02 PM MOBILE THERAPIST COVID19 04/18/2020 04/18/2020 05/09/2020 3:17 AM MOBILE THERAPIST documented as of this encounter Care Teams Customer Relations Specialist Relationship Specialty [place] [address] [place] [address] PCP - General Family Practice 01/30/18 documented as of this encounter
--- OUTSIDE RECORDS SUMMARY | 2024-05-28 15:24 | XMS_ITS | Encounter Summary ---
Author Organization [employer] Address [address] [place] [address] Care Team Providers Care Engraver Ornamental Design Name Role Phone Johnie Farmer MD Primary Care Provider [phone] Encounter Details Date Type Department Care Team [...] R/O COVID19 04/18/2020 04/18/2020 04/19/2020 5:02 PM DIRECTOR OF RETAIL OPERATIONS COVID19 04/18/2020 04/18/2020 05/09/2020 3:17 AM DIRECTOR OF RETAIL OPERATIONS documented as of this encounter Care Teams Engraver Ornamental Design Relationship Specialty [place] [address] [place] [address] PCP - General Family Practice 01/30/18 documented as of this encounter
--- OUTSIDE RECORDS SUMMARY | 2024-05-28 15:24 | XMS_ITS | Encounter Summary ---
Author Organization [employer] Address [address] [place] [address] Care Team Providers Care Back Stayer Name Role Phone Johnie Farmer MD Primary Care Provider [phone] Encounter Details Date Type Department Care Team (Late st Contact Info) Description 09/26/2013 Outside Hospital External to [facility], Provider HISTORY PHYSICAL Social History [...] R/O COVID19 04/18/2020 04/18/2020 04/19/2020 5:02 PM RELAY MAN COVID19 04/18/2020 04/18/2020 05/09/2020 3:17 AM RELAY MAN documented as of this encounter Care Teams Back Stayer Relationship Specialty [place] [address] [place] [address] PCP - General Family Practice 01/30/18 documented as of this encounter
--- OUTSIDE RECORDS SUMMARY | 2024-05-28 15:24 | XMS_ITS | Encounter Summary ---
Author Organization [employer] Address [address] [place] [address] Care Team Providers Care Manager Rental Name Role Phone Johnie Farmer MD Primary Care Provider [phone] Encounter Details Date Type Department Care Team [...] Funes Provider - 04/03/2013 12:00 AM CST ES PLAYER documented in this encounter Plan of Treatment Not on file documented as of this encounter Visit Diagnoses Not on filedocumented in this encounter Additional Health Concerns Infection Onset Date Last Indicated Resolved Time R/O COVID19 04/18/2020 04/18/2020 04/19/2020 5:02 PM STAKES PLAYER COVID19 04/18/2020 04/18/2020 05/09/2020 3:17 AM STAKES PLAYER documented as of this encounter Care Teams Manager Rental Relationship Specialty [place] [address] [place] [address] PCP - General Family Practice 01/30/18 documented as of this encounter
== END 2024-09-23 07:32 | disposition home or self-care (01) ==
PROVIDERS: Visit Provider Orthopaedic Surgery Sports Medicine
DX: Z47.89 Encounter for other orthopedic aftercare (principal); Z51.89 Encounter for other specified aftercare
CPT/HCPCS: 97110; 97140; 97161